=== PATIENT | male | born 1995 | race American Indian/Alaskan Native ===

== ENCOUNTER 2021-10-18 14:14 | Inpatient (IN) | payer SELFPAY ==
--- NOTE | 2021-10-18 17:06 | XRay Report ---
CHEST 1 VIEW INDICATION: Dyspnea. COMPARISON: None FINDINGS: Support devices: None. Heart: Mild cardiomegaly Lungs/Pleura: Bilateral lung opacities are identified which could represent congestive changes or aty pical pneumonia. No pleural effusion or pneumothorax. Additional findings: None. IMPRESSION: Mild cardiomegaly. Bilateral lung opacities or congestive changes. Signer Name: Clarence Santoyo Jr, MD Signed: 10/18/2021 5:01 PM Workstation Name: [id number]
[2021-10-18 17:28] LABS: Basophils % (Auto) 0.2 % (0.0-1.8); Hematocrit 36.8 % (35.5-45.6); Hemoglobin 11.9 gm/dl (11.8-15.2); Lymphocytes # (Auto) 0.6 K/mm3 (1.2-5.4); Lymphocytes % (Auto) 7.7 % (13.4-35.0); Mean Corpuscular HGB Conc 32 % (32-34); Mean Corpuscular Volume 79 fl (84-94); Monocytes # (Auto) 0.4 K/mm3 (0.0-0.8); Monocytes % (Auto) 5.7 % (0.0-7.3); Platelet Count 244 K/mm3 (140-440); Red Blood Count 4.66 M/mm3 (3.65-5.03); Red Cell Distribution Width 15.4 % (13.2-15.2)
[2021-10-18 17:46] LABS: INR 0.95 (0.87-1.13)
[2021-10-18 18:11] LABS: Creatine Kinase MB 3.3 ng/mL (0.0-4.0)
[2021-10-18 18:14] LABS: Alanine Aminotransferase 58 units/L (7-56); Albumin 3.6 g/dL (3.9-5); BUN/Creatinine Ratio 14; Blood Urea Nitrogen 11 mg/dL (9-20); Calcium 8.8 mg/dL (8.4-10.2); Hemolysis Index 3
[2021-10-18] MEDS ORDERED: AZITHROMYCIN/NS 500 MG/250 ML 500 MG/250 ML BAG IV ONE (18:47)
[2021-10-18] MEDS ORDERED: cefTRIAXone/NS 1 GM/50 ML 1 GM/50 ML BAG IV ONE (18:47)
[2021-10-18] MEDS ORDERED: dexAMETHasone 4 MG/ML VIAL IV ONE (18:47)
--- NOTE | 2021-10-18 18:57 | Cat Scan Report ---
CTA CHEST WITH CONTRAST INDICATION : covid/sob. TECHNIQUE: Axial imaging performed through the chest, with contrast bolus timing set to maximize opa cification of the pulmonary arteries. Sagittal and coronal reformatted images. 3-plane MIP reformatte d images were obtained. All CT scans at this location are performed using CT dose reduction for ALAR A by means of automated exposure control. 100 mL of intravenous contrast administered. COMPARISON: AP chest performed earlier today FINDINGS: Bolus: Contrast bolus timing is slightly limited but adequate. PTE: Multiple bilateral nonocclusive filling defects are suggested in the second and third order pul monary arterial branches bilaterally. No large central embolus. Mediastinum: Borderline to mild cardiomegaly. No evidence for right heart strain. The aorta is unre markable. No pathologic mediastinal adenopathy. Lungs: There are moderate to severe bilateral perihilar lung opacities concerning for atypical pneum onia. No pleural effusion or pneumothorax. Bones: Degenerative changes in the spine with nothing acute. Upper abdomen: Moderate to severe hepatic steatosis. IMPRESSION: Positive for pulmonary embolus. Bilateral lung infiltrates concerning for atypical pneumonia such as Covid. Borderline to mild cardiomegaly but no evidence for right heart strain. Hepatic steatosis. CRITICAL RESULT: Time of Discovery (GENERAL PEDIATRICIAN/CDT): 1749 hours Time of Communication (GENERAL PEDIATRICIAN/CDT): 1753 hours Licensed Practitioner Receiving Report: Dr. Phillips Read-Back Performed: Yes. Signer Name: Clarence Santoyo Jr, MD Signed: 10/18/2021 6:53 PM Workstation Name: [id number]
--- NOTE | 2021-10-18 19:06 | Emergency Department Report ---
ED General Adult HPI - General Chief complaint: Dyspnea/Respdistress Stated complaint: COVID/FLU POSITIVE Time Seen by Provider: 10/18/21 15:27 Source: EMS Mode of arrival: Ambulatory Limitations: No Limitations - History of Present Illness Initial comments: The patient presents to the emergency department with a chief complaint of increased shortness of breath. Patient states that he was diagnosed with COVID- 19 and influenza a couple of days ago. He was prescribed azithromycin and steroids after being diagnosed with the after mentioned illnesses. He states his breathing has become increasingly worse especially with exertion. Patient O2 sats on a nonrebreather initially were 90%. Patient reports a history of asthma but states he has not taken any medications for it since he was a kid. He also complains of chest pain especially with exertion. He denies abdominal pain or headache. -: Gradual Location: chest Radiation: non-radiation Severity scale (0 -10): 6 Quality: sharp Consistency: constant Improves with: none Worsens with: movement Associated Symptoms: denies other symptoms Treatments Prior to Arrival: none - Related Data Allergies Allergy/AdvReac Type Severity Reaction Status Date / Time No Known Allergies Allergy Unverified 10/18/21 16:14 ED Review of Systems ROS: Stated complaint: COVID/FLU POSITIVE Other details as noted in HPI Comment: All other systems reviewed and negative Constitutional: denies: chills, fever Eyes: denies: eye pain, eye discharge, vision change ENT: denies: ear pain, throat pain Respiratory: shortness of breath. denies: cough, wheezing Cardiovascular: chest pain. denies: palpitations Endocrine: no symptoms reported Gastrointestinal: denies: abdominal pain, nausea, diarrhea Genitourinary: denies: urgency, dysuria Musculoskeletal: denies: back pain, joint swelling, arthralgia Skin: denies: rash, lesions Neurological: denies: headache, weakness, paresthesias Psychiatric: denies: anxiety, depression Hematological/Lymphatic: denies: easy bleeding, easy bruising ED Past Medical Hx - Past Medical History Previous Medical History?: Yes Hx Hypertension: Yes Hx Diabetes: Yes Additional medical history: Gout - Surgical History Past Surgical History?: No ED Physical Exam - General Limitations: No Limitations General appearance: other (Moderate respiratory distress) - Head Head exam: Present: atraumatic - Eye Eye exam: Present: normal appearance, PERRL, EOMI - ENT ENT exam: Present: mucous membranes moist - Neck Neck exam: Present: normal inspection - Respiratory Respiratory exam: Present: respiratory distress, rales, decreased breath sounds - Cardiovascular Cardiovascular Exam: Present: normal rhythm, tachycardia. Absent: systolic murmur, diastolic murmur, rubs, gallop - GI/Abdominal GI/Abdominal exam: Present: soft, normal bowel sounds. Absent: distended, tenderness - Rectal Rectal exam: Present: deferred - Extremities Exam Extremities exam: Present: other (Bilateral pitting edema) - Back Exam Back exam: Present: normal inspection - Neurological Exam Neurological exam: Present: alert, oriented X3, CN II-XII intact. Absent: motor sensory deficit - Psychiatric Psychiatric exam: Present: normal affect, normal mood - Skin Skin exam: Present: warm, dry, intact, normal color. Absent: rash ED Course Vital Signs 10/18/21 10/18/21 10/18/21 16:15 16:30 16:45 Pulse Rate 101 H 104 H 103 H Respiratory 32 H 32 H 30 H Rate Blood Pressure 124/70 139/49 122/56 [Left] O2 Sat by Pulse 95 94 94 Oximetry ED Medical Decision Making - Lab Data Result diagrams: 10/18/21 16:39 10/18/21 16:39 Lab Results 10/18/21 10/18/21 10/18/21 Range/Units 16:39 16:39 16:39 WBC 7.2 (4.5-11.0) K/mm3 RBC 4.66 (3.65-5.03) M/mm3 Hgb 11.9 (11.8-15.2) gm/dl Hct 36.8 (35.5-45.6) % MCV 79 L (84-94) fl MCH 26 L (28-32) pg MCHC 32 (32-34) % RDW 15.4 H (13.2-15.2) % Plt Count 244 (140-440) K/mm3 Lymph % (Auto) 7.7 L (13.4-35.0) % [place] % (Auto) 5.7 (0.0-7.3) % Eos % (Auto) 0.0 (0.0-4.3) % Baso % (Auto) 0.2 (0.0-1.8) % Lymph # (Auto) 0.6 L (1.2-5.4) K/mm3 [place] # (Auto) 0.4 (0.0-0.8) K/mm3 Eos # (Auto) 0.0 (0.0-0.4) K/mm3 Baso # (Auto) 0.0 (0.0-0.1) K/mm3 Seg Neutrophils % 86.4 H (40.0-70.0) % Seg Neutrophils # 6.2 (1.8-7.7) K/mm3 PT 13.7 (12.2-14.9) Sec. INR 0.95 (0.87-1.13) APTT 33.0 (24.2-36.6) Sec. D-Dimer 231.57 (0-234) ng/mlDDU Sodium 133 L (137-145) mmol/L Potassium 4.9 (3.6-5.0) mmol/L Chloride 96.6 L (98-107) mmol/L Carbon Dioxide 19 L (22-30) mmol/L Anion Gap 22 mmol/L BUN 11 (9-20) mg/dL Creatinine 0.8 (0.8-1.3) mg/dL Estimated GFR > 60 ml/min BUN/Creatinine Ratio 14 % Glucose 183 H (75-100) mg/dL Lactic Acid (0.7-2.0) mmol/L Calcium 8.8 (8.4-10.2) mg/dL Magnesium 1.90 (1.7-2.3) mg/dL Total Bilirubin 0.40 (0.1-1.2) mg/dL AST 72 H (5-40) units/L ALT 58 H (7-56) units/L Alkaline Phosphatase 57 (35-129) units/L Total Creatine Kinase 1484 H (55-170) units/L CK-MB (CK-2) 3.3 (0.0-4.0) ng/mL CK-MB (CK-2) Rel Index 0.2 (0-4) Troponin T < 0.010 (0.00-0.029) ng/mL Total Protein 7.9 (6.3-8.2) g/dL Albumin 3.6 L (3.9-5) g/dL Albumin/Globulin Ratio 0.8 % Lipase 15 (13-60) units/L 12/14/21 Range/Units 16:39 WBC (4.5-11.0) K/mm3 RBC (3.65-5.03) M/mm3 Hgb (11.8-15.2) gm/dl Hct (35.5-45.6) % MCV (84-94) fl MCH (28-32) pg MCHC (32-34) % RDW (13.2-15.2) % Plt Count (140-440) K/mm3 Lymph % (Auto) (13.4-35.0) % [place] % (Auto) (0.0-7.3) % Eos % (Auto) (0.0-4.3) % Baso % (Auto) (0.0-1.8) % Lymph # (Auto) (1.2-5.4) K/mm3 [place] # (Auto) (0.0-0.8) K/mm3 Eos # (Auto) (0.0-0.4) K/mm3 Baso # (Auto) (0.0-0.1) K/mm3 Seg Neutrophils % (40.0-70.0) % Seg Neutrophils # (1.8-7.7) K/mm3 PT (12.2-14.9) Sec. INR (0.87-1.13) APTT (24.2-36.6) Sec. D-Dimer (0-234) ng/mlDDU Sodium (137-145) mmol/L Potassium (3.6-5.0) mmol/L Chloride (98-107) mmol/L Carbon Dioxide (22-30) mmol/L Anion Gap mmol/L BUN (9-20) mg/dL Creatinine (0.8-1.3) mg/dL Estimated GFR ml/min BUN/Creatinine Ratio % Glucose (75-100) mg/dL Lactic Acid 1.40 (0.7-2.0) mmol/L Calcium (8.4-10.2) mg/dL Magnesium (1.7-2.3) mg/dL Total Bilirubin (0.1-1.2) mg/dL AST (5-40) units/L ALT (7-56) units/L Alkaline Phosphatase (35-129) units/L Total Creatine Kinase (55-170) units/L CK-MB (CK-2) (0.0-4.0) ng/mL CK-MB (CK-2) Rel Index (0-4) Troponin T (0.00-0.029) ng/mL Total Protein (6.3-8.2) g/dL Albumin (3.9-5) g/dL Albumin/Globulin Ratio % Lipase (13-60) units/L - Medical Decision Making Patient was placed on nonrebreather mask Sepsis protocol initiated Patient given IV antibiotics CT shows bilateral pulmonary emboli CT also shows bilateral groundglass opacities consistent with COVID-19 Still awaiting completion the EKG at 7:51 PM. Multiple requests me for EKG to be done to no avail Critical Care Time: Yes Critical care time in (mins) excluding proc time.: 35 Critical care attestation.: If time is entered above; I have spent that time in minutes in the direct care of this critically ill patient, excluding procedure time. ED Disposition Clinical Impression: Bilateral pneumonia, COVID-19, Respiratory distress, Bilateral pulmonary embolism Disposition: 09 ADMITTED INPATIENT Is pt being admited?: Yes Does the pt Need Aspirin: No Condition: Fair Instructions: Bacterial Pneumonia (ED) Referrals: PRIMARY CARE, [Primary Care Provider] - 3-5 Days
[2021-10-18 22:52] LABS: Bacteria,Urine 1+ /HPF (Negative); Bilirubin,Urine NEG (Negative); Blood,Urine SM (Negative); Color,Urine Yellow (Yellow); RBC,Urine < 1.0 /HPF (0.0-6.0); Urobilinogen,Urine < 2.0 mg/dL (<2.0); WBC,Urine < 1.0 /HPF (0.0-6.0)
[2021-10-19] MEDS ORDERED: ENOXAPARIN 40 MG/0.4 ML INJ SUB-Q ONE (00:30)
[2021-10-19] MEDS ORDERED: ALPRAZolam 0.25 MG TAB ONE (00:41)
[2021-10-19] MEDS ORDERED: ACETAMINOPHEN 325 MG TAB PO PRN ×2 (04:21→04:31)
[2021-10-19] MEDS ORDERED: MORPHINE 4 MG/1 ML INJ IV PRN (04:21)
[2021-10-19] MEDS ORDERED: ONDANSETRON 4 MG/2 ML INJ IV PRN (04:21)
[2021-10-19] MEDS ORDERED: SODIUM CHLORIDE 0.9% 1000 ML 1,000 ML IV SCH ×3 (04:30→07:30)
[2021-10-19] MEDS ORDERED: ALPRAZolam 0.25 MG TAB PO PRN (04:32)
[2021-10-19] MEDS ORDERED: TEMAZEPAM 15 MG CAP PO PRN (04:33)
[2021-10-19] MEDS ORDERED: PROMETHAZINE 25 MG TAB PO PRN (04:38)
[2021-10-19] MEDS ORDERED: PROMETHAZINE 25 MG RECT SUPP PR PRN (04:39)
[2021-10-19] MEDS ORDERED: DEXTROSE 50% IN WATER (25GM) 50 ML SYRINGE IV PRN (04:51)
--- NOTE | 2021-10-19 07:05 | History and Physical Report ---
History of Present Illness Date of examination: 10/18/21 Date of admission: 10/18/21 19:52 Chief complaint: Shortness of breath for 2 to 3 days History of present illness: 26-year-old male with history of hypertension and diabetes and gout comes in for increasing shortness of breath of 3 days duration. Patient was diagnosed with Covid and flu couple of days ago. Patient was prescribed Zithromax and steroids. Patient's anxiety is shortness of breath is increased over the last 3 days. In the emergency room patient oxygen saturations were 90% on nonrebreather. Patient has history of asthma. But does not take any medications on a regular basis. Not vaccinated with Covid vaccine. No fever or chills. No loss of taste/smell. ED course patient was initiated on rebreather with oxygen saturations improving to low 90s. Patient had bilateral pneumonia on the chest x-ray along with bilateral PEs - Past Medical History --Previous Medical History?: Yes --Hypertension: Yes --Diabetes: Yes --Additional medical history: Gout - Surgical History --No family history --HTN -social history --no smoking or drugs or alcohol Review of Systems ROS: Stated complaint: COVID/FLU POSITIVE Other details as noted in HPI Comment: All other systems reviewed and negative Constitutional: denies: chills, fever Eyes: denies: eye pain, eye discharge, vision change ENT: denies: ear pain, throat pain Respiratory: shortness of breath. denies: cough, wheezing Cardiovascular: chest pain. denies: palpitations Endocrine: no symptoms reported Gastrointestinal: denies: abdominal pain, nausea, diarrhea Genitourinary: denies: urgency, dysuria Musculoskeletal: denies: back pain, joint swelling, arthralgia Skin: denies: rash, lesions Neurological: denies: headache, weakness, paresthesias Psychiatric: denies: anxiety, depression Hematological/Lymphatic: denies: easy bleeding, easy bruising Medications and Allergies Allergies Allergy/AdvReac Type Severity Reaction Status Date / Time No Known Allergies Allergy Unverified 10/18/21 16:14 Active Meds: Active Medications Acetaminophen (Acetaminophen 325 Mg Tab) 650 mg PO Q4H PRN PRN Reason: Pain, Mild (1-3) Alprazolam (Alprazolam 0.25 Mg Tab) 0.125 mg PO Q8H PRN PRN Reason: Anxiety Last Admin: 10/19/21 00:30 Dose: 0.125 mg Documented by: Dexamethasone (Dexamethasone 4 Mg/Ml Vial) 8 mg IV Q24H [facility] Dextrose (Dextrose 50% In Water (25gm) 50 Ml Syringe) 50 ml IV Q30MIN PRN; Protocol PRN Reason: Hypoglycemia Enoxaparin Sodium (Enoxaparin 40 Mg/0.4 Ml Inj) 40 mg SUB-Q Q24H ALBIN Last Admin: 10/19/21 00:30 Dose: 40 mg Documented by: Famotidine (Famotidine 20 Mg Tab) 20 mg PO BID [facility] Sodium Chloride (Nacl 0.9% 1000 Ml) 1,000 mls @ 75 mls/hr IV DIRECT ALBIN Ceftriaxone Sodium (Rocephin/Ns 2 Gm/100 Ml) 2 gm in 100 mls @ 200 mls/hr IV Q24H [facility] Azithromycin (Zithromax/Ns) 500 mg in 250 mls @ 250 mls/hr IV Q24H [facility] Insulin Human Lispro (Insulin Lispro 100 Unit/Ml) 0 unit SUB-Q ACHS ALBIN; Protocol Morphine Sulfate (Morphine 4 Mg/1 Ml Inj) 2 mg IV Q4H PRN PRN Reason: Pain , Severe (7-10) Morphine Sulfate (Morphine 2 Mg/1 Ml Inj) 2 mg IV Q4H PRN PRN Reason: Pain, Moderate (4-6) Ondansetron HCl (Ondansetron 4 Mg/2 Ml Inj) 4 mg IV Q8H PRN PRN Reason: Nausea And Vomiting Promethazine HCl (Promethazine 25 Mg Tab) 25 mg PO Q6H PRN PRN Reason: Nausea And Vomiting Promethazine HCl (Promethazine 25 Mg Rect Supp) 25 mg LA Q6H PRN PRN Reason: Nausea And Vomiting Sodium Chloride (Sodium Chloride 0.9% 10 Ml Flush Syringe) 10 ml IV BID ALBIN Sodium Chloride (Sodium Chloride 0.9% 10 Ml Flush Syringe) 10 ml IV PRN PRN PRN Reason: flush prior to & after IV med Temazepam (Temazepam 15 Mg Cap) 15 mg PO QHS PRN PRN Reason: Sleep Exam - Constitutional Vitals: Temp Pulse Resp BP Pulse Ox 89 20 124/72 93 10/19/21 06:00 10/19/21 06:00 10/19/21 06:00 10/19/21 06:00 General appearance: Present: mild distress, well-nourished - EENT Eyes: Present: PERRL ENT: hearing intact, clear oral mucosa - Neck Neck: Present: supple, normal ROM - Respiratory Respiratory effort: normal Respiratory: bilateral: CTA, rhonchi (Scattered) - Cardiovascular Heart rate: 106 Rhythm: regular Heart Sounds: Present: S1 & S2. Absent: rub, click - Extremities Extremities: no ischemia, pulses intact, pulses symmetrical, No edema Peripheral Pulses: within normal limits - Abdominal General gastrointestinal: Present: soft, non-tender, non-distended, normal bowel sounds Male genitourinary: Present: normal - Rectal Rectal Exam: deferred - Integumentary Integumentary: Present: clear, warm, dry - Musculoskeletal Musculoskeletal: gait normal, strength equal bilaterally - Psychiatric Psychiatric: appropriate mood/affect, intact judgment & insight - Neurologic Neurologic: CNII-XII intact, moves all extremities - Allied Health Allied health notes reviewed: nursing, case management HEART Score - HEART Score EKG: Normal Age: < 45 Risk factors: 1-2 risk factors Troponin: Troponin T < 0.010 ng/mL (0.00-0.029) 10/18/21 16:39 Troponin: < normal limit - Critical Actions Critical Actions: 0-3 pts:0.9-1.7%risk of adverse cardiac event.Candidate for discharge Results - Labs CBC & Chem 7: 10/18/21 16:39 10/18/21 16:39 Labs: Laboratory Last Values WBC 7.2 K/mm3 (4.5-11.0) 10/18/21 16:39 RBC 4.66 M/mm3 (3.65-5.03) 10/18/21 16:39 Hgb 11.9 gm/dl (11.8-15.2) 10/18/21 16:39 Hct 36.8 % (35.5-45.6) 10/18/21 16:39 MCV 79 fl (84-94) L 10/18/21 16:39 MCH 26 pg (28-32) L 10/18/21 16:39 MCHC 32 % (32-34) 10/18/21 16:39 RDW 15.4 % (13.2-15.2) H 10/18/21 16:39 Plt Count 244 K/mm3 (140-440) 10/18/21 16:39 Lymph % (Auto) 7.7 % (13.4-35.0) L 10/18/21 16:39 [place] % (Auto) 5.7 % (0.0-7.3) 10/18/21 16:39 Eos % (Auto) 0.0 % (0.0-4.3) 10/18/21 16:39 Baso % (Auto) 0.2 % (0.0-1.8) 10/18/21 16:39 Lymph # (Auto) 0.6 K/mm3 (1.2-5.4) L 10/18/21 16:39 [place] # (Auto) 0.4 K/mm3 (0.0-0.8) 10/18/21 16:39 Eos # (Auto) 0.0 K/mm3 (0.0-0.4) 10/18/21 16:39 Baso # (Auto) 0.0 K/mm3 (0.0-0.1) 10/18/21 16:39 Seg Neutrophils % 86.4 % (40.0-70.0) H 10/18/21 16:39 Seg Neutrophils # 6.2 K/mm3 (1.8-7.7) 10/18/21 16:39 PT 13.7 Sec. (12.2-14.9) 10/18/21 16:39 INR 0.95 (0.87-1.13) 10/18/21 16:39 APTT 33.0 Sec. (24.2-36.6) 10/18/21 16:39 D-Dimer 231.57 ng/mlDDU (0-234) 10/18/21 16:39 Sodium 133 mmol/L (137-145) L 10/18/21 16:39 Potassium 4.9 mmol/L (3.6-5.0) 10/18/21 16:39 Chloride 96.6 mmol/L (98-107) L 10/18/21 16:39 Carbon Dioxide 19 mmol/L (22-30) L 10/18/21 16:39 Anion Gap 22 mmol/L 10/18/21 16:39 BUN 11 mg/dL (9-20) 10/18/21 16:39 Creatinine 0.8 mg/dL (0.8-1.3) 10/18/21 16:39 Estimated GFR > 60 ml/min 10/18/21 16:39 BUN/Creatinine Ratio 14 % 10/18/21 16:39 Glucose 183 mg/dL (75-100) H 10/18/21 16:39 Lactic Acid 1.40 mmol/L (0.7-2.0) 10/18/21 16:39 Calcium 8.8 mg/dL (8.4-10.2) 10/18/21 16:39 Magnesium 1.90 mg/dL (1.7-2.3) 10/18/21 16:39 Total Bilirubin 0.40 mg/dL (0.1-1.2) 10/18/21 16:39 AST 72 units/L (5-40) H 10/18/21 16:39 ALT 58 units/L (7-56) H 10/18/21 16:39 Alkaline Phosphatase 57 units/L (35-129) 10/18/21 16:39 Total Creatine Kinase 1484 units/L (55-170) H 10/18/21 16:39 CK-MB (CK-2) 3.3 ng/mL (0.0-4.0) 10/18/21 16:39 CK-MB (CK-2) Rel Index 0.2 (0-4) 10/18/21 16:39 Troponin T < 0.010 ng/mL (0.00-0.029) 10/18/21 16:39 Total Protein 7.9 g/dL (6.3-8.2) 10/18/21 16:39 Albumin 3.6 g/dL (3.9-5) L 10/18/21 16:39 Albumin/Globulin Ratio 0.8 % 10/18/21 16:39 Lipase 15 units/L (13-60) 10/18/21 16:39 Urine Color Yellow (Yellow) 10/18/21 22:26 Urine Turbidity Clear (Clear) 10/18/21 22:26 Urine pH 6.0 (5.0-7.0) 10/18/21 22:26 Ur Specific [place] 1.025 (1.003-1.030) 10/18/21 22:26 Urine Protein 100 mg/dl mg/dL (Negative) 10/18/21 22: Urine Glucose (UA) Neg mg/dL (Negative) 10/18/21 22:26 Urine Ketones Neg mg/dL (Negative) 10/18/21 22: Urine Blood Sm (Negative) 10/18/21 22:26 Urine Nitrite Neg (Negative) 10/18/21 22:26 Urine Bilirubin Neg (Negative) 10/18/21 22:26 Urine Urobilinogen < 2.0 mg/dL (<2.0) 10/18/21 22:26 Ur Leukocyte Esterase Neg (Negative) 10/18/21 22:26 Urine WBC (Auto) < 1.0 /HPF (0.0-6.0) 10/18/21 22: Urine RBC (Auto) < 1.0 /HPF (0.0-6.0) 10/18/21 22: U Epithel Cells (Auto) < 1.0 /HPF (0-13.0) 10/18/21 22: Urine Bacteria (Auto) 1+ /HPF (Negative) 10/18/21 22:26 Short CBC 10/18/21 Range/Units 16:39 WBC 7.2 (4.5-11.0) K/mm3 Hgb 11.9 (11.8-15.2) gm/dl Hct 36.8 (35.5-45.6) % Plt Count 244 (140-440) K/mm3 BMP 10/18/21 16:39 Sodium 133 L Potassium 4.9 Chloride 96.6 L Carbon Dioxide 19 L BUN 11 Creatinine 0.8 Glucose 183 H Calcium 8.8 Cardiac Enzymes 10/18/21 Range/Units 16:39 Total Creatine Kinase 1484 H (55-170) units/L CK-MB (CK-2) 3.3 (0.0-4.0) ng/mL Troponin T < 0.010 (0.00-0.029) ng/mL Liver Function 10/18/21 Range/Units 16:39 Total Bilirubin 0.40 (0.1-1.2) mg/dL AST 72 H (5-40) units/L ALT 58 H (7-56) units/L Alkaline Phosphatase 57 (35-129) units/L Albumin 3.6 L (3.9-5) g/dL Urine 10/18/21 Range/Units 22:26 Urine Color Yellow (Yellow) Urine pH 6.0 (5.0-7.0) Ur Specific [place] 1.025 (1.003-1.030) Urine Protein 100 mg/dl (Negative) mg/dL Urine Glucose (UA) Neg (Negative) mg/dL Microbiology: Microbiology 10/18/21 16:39 Peripheral/Venous Blood Culture - Preliminary Culture in Progress 10/18/21 16:47 Peripheral/Venous Blood Culture - Preliminary Culture in Progress - Imaging and Cardiology Imaging and Cardiology: Chest x-ray Mild cardiomegaly Bilateral lung opacities are congestive changes Chest CTA Positive for pulmonary embolus Bilateral lung infiltrates concerning for atypical pneumonia such as Covid Borderline to mild cardiomegaly but no evidence for right heart failure affect Antibiotics. Assessment and Plan Advance Directives: Yes (Full code) VTE prophylaxis?: Chemical Plan of care discussed with patient/family: Yes - Patient Problems (1) Acute respiratory failure with hypoxia Current Visit: Yes Status: Acute Plan to address problem: Oxygen supplementation as necessary BiPAP if necessary Intubation if necessary (2) Bilateral pneumonia Current Visit: Yes Status: Acute Plan to address problem: Treat as community-acquired pneumonia with IV Zithromax and IV Rocephin Rule out Covid pneumonia (3) Bilateral pulmonary embolism Current Visit: Yes Status: Acute Plan to address problem: Lovenox weight-based (4) Influenza Current Visit: Yes Status: Acute Plan to address problem: Rapid flu test requested (5) COVID-19 Current Visit: Yes Status: Acute Plan to address problem: Coronavirus PCR in a.m. 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 insulin use status Plan to address problem: Continue hypoglycemics and coverage Check hemoglobin A1c (9) Transaminitis Current Visit: Yes Status: Acute Plan to address problem: Possibly secondary to Covid Acute hepatitis profile requested (10) Hyponatremia Current Visit: Yes Status: Acute Plan to address problem: Mild Should be self resolving (11) Rhabdomyolysis due to COVID-19 Current Visit: Yes Status: Acute Plan to address problem: Mild Possibly secondary to Covid IV fluids for 24 h (12) Malnutrition Current Visit: Yes Status: Chronic Qualifiers: Protein-calorie malnutrition severity: mild Plan to address problem: Dietary supplements for now (13) DVT prophylaxis Current Visit: Yes Status: Acute Plan to address problem: On anticoagulation and GI prophylaxis (14) Advance care planning Current Visit: Yes Status: Acute
[2021-10-19] MEDS: ENOXAPARIN 60 MG/0.6 ML INJ SUB-Q SCH ×2 (08:00→23:52)
[2021-10-19] MEDS: ENOXAPARIN 100 MG/1 ML INJ SUB-Q SCH ×2 (08:00→23:53)
[2021-10-19] MEDS ORDERED: ENOXAPARIN 40 MG/0.4 ML INJ SUB-Q SCH ×2 (08:00→23:00)
[2021-10-19] MEDS ORDERED: ENOXAPARIN 150 MG/1 ML INJ SUB-Q SCH (10:00)
[2021-10-19] MEDS ORDERED: ENOXAPARIN 30 MG/0.3 ML INJ SUB-Q SCH (10:00)
[2021-10-19] MEDS: dexAMETHasone 4 MG/ML VIAL IV SCH (11:03)
[2021-10-19] MEDS: FAMOTIDINE 20 MG TAB PO SCH ×2 (11:04→23:54)
[2021-10-19] MEDS: MORPHINE 2 MG/1 ML INJ IV PRN (11:16)
--- NOTE | 2021-10-19 11:56 | Consultation ---
History of Present Illness - Reason for Consult Consult date: 10/19/21 COVID PUI Requesting physician: TL JOHNSTON - History of Present Illness The patient is a 26-year-old male with hypertension, diabetes, gout admitted with cough and shortness of breath going on for 3 days. He tested positive for COVID-19 and influenza as an outpatient. Noted to be hypoxic, hence hospitalized. ID consulted for additional evaluation. Initially, he needed nonrebreather, then weaned to nasal cannula. Labs revealed normal WBC, transaminitis, CK 1484. CTA revealed PE, in addition had also showed patchy bilateral multifocal pneumonia. Review of Systems: reviewed in the chart, unable to obtain, minimize risk of transmission Medications and Allergies Allergies Allergy/AdvReac Type Severity Reaction Status Date / Time No Known Allergies Allergy Unverified 10/18/21 16:14 Active Meds: Active Medications Acetaminophen (Acetaminophen 325 Mg Tab) 650 mg PO Q4H PRN PRN Reason: Pain, Mild (1-3) Alprazolam (Alprazolam 0.25 Mg Tab) 0.125 mg PO Q8H PRN PRN Reason: Anxiety Last Admin: 10/19/21 00:30 Dose: 0.125 mg Documented by: Dexamethasone (Dexamethasone 4 Mg/Ml Vial) 8 mg IV DAILY ALBIN Stop: 10/27/21 10:01 Last Admin: 10/19/21 11:03 Dose: 8 mg Documented by: Dextrose (Dextrose 50% In Water (25gm) 50 Ml Syringe) 50 ml IV Q30MIN PRN; Pr otocol PRN Reason: Hypoglycemia Enoxaparin Sodium (Enoxaparin 100 Mg/1 Ml Inj) 100 mg SUB-Q Q12HR ALBIN Enoxaparin Sodium (Enoxaparin 60 Mg/0.6 Ml Inj) 60 mg SUB-Q Q12HR ALBIN Famotidine (Famotidine 20 Mg Tab) 20 mg PO BID ALBIN Last Admin: 10/19/21 11:04 Dose: 20 mg Documented by: Ceftriaxone Sodium (Rocephin/Ns 2 Gm/100 Ml) 2 gm in 100 mls @ 200 mls/hr IV Q24H ALBIN Stop: 10/22/21 20:29 Azithromycin (Zithromax/Ns) 500 mg in 250 mls @ 250 mls/hr IV Q24H ALBIN Stop: 12/18/21 21:59 Sodium Chloride (Nacl 0.9% 1000 Ml) 1,000 mls @ 75 mls/hr IV DIRECT ALBIN Stop: 10/20/21 01:00 Insulin Human Lispro (Insulin Lispro 100 Unit/Ml) 0 unit SUB-Q ACHS ALBIN; Protocol Morphine Sulfate (Morphine 4 Mg/1 Ml Inj) 2 mg IV Q4H PRN PRN Reason: Pain , Severe (7-10) Morphine Sulfate (Morphine 2 Mg/1 Ml Inj) 2 mg IV Q4H PRN PRN Reason: Pain, Moderate (4-6) Last Admin: 10/19/21 11:16 Dose: 2 mg Documented by: Ondansetron HCl (Ondansetron 4 Mg/2 Ml Inj) 4 mg IV Q8H PRN PRN Reason: Nausea And Vomiting Promethazine HCl (Promethazine 25 Mg Tab) 25 mg PO Q6H PRN PRN Reason: Nausea And Vomiting Promethazine HCl (Promethazine 25 Mg Rect Supp) 25 mg NE Q6H PRN PRN Reason: Nausea And Vomiting Sodium Chloride (Sodium Chloride 0.9% 10 Ml Flush Syringe) 10 ml IV BID ALBIN Sodium Chloride (Sodium Chloride 0.9% 10 Ml Flush Syringe) 10 ml IV PRN PRN PRN Reason: flush prior to & after IV med Temazepam (Temazepam 15 Mg Cap) 15 mg PO QHS PRN PRN Reason: Sleep Physical Examination - Physical Exam Narrative exam: Physical Exam (reviewed in chart to minimize risk of transmission) Constitutional: deferred Head, Ears, Nose: deferred Eyes: deferred Neck: deferred Oral: deferred Cardiovascular: deferred Respiratory: deferred GI: deferred Musculoskeletal: deferred Skin: deferred Hem/Lymphatic: deferred Psych: deferred Neurological: deferred - Constitutional Vitals: Vital Signs Temp Pulse Resp BP Pulse Ox 89 23 124/72 93 10/19/21 06:00 10/19/21 11:16 10/19/21 06:00 10/19/21 06:00 Results - Labs CBC & Chem 7: 10/18/21 16:39 10/18/21 16:39 Labs: Abnormal lab results 10/18/21 10/18/21 Range/Units 16:39 16:39 MCV 79 L (84-94) fl MCH 26 L (28-32) pg RDW 15.4 H (13.2-15.2) % Lymph % (Auto) 7.7 L (13.4-35.0) % Lymph # (Auto) 0.6 L (1.2-5.4) K/mm3 Seg Neutrophils % 86.4 H (40.0-70.0) % Sodium 133 L (137-145) mmol/L Chloride 96.6 L (98-107) mmol/L Carbon Dioxide 19 L (22-30) mmol/L Glucose 183 H (75-100) mg/dL AST 72 H (5-40) units/L ALT 58 H (7-56) units/L Total Creatine Kinase 1484 H (55-170) units/L Albumin 3.6 L (3.9-5) g/dL - Imaging and Cardiology CT scan - chest: report reviewed, image reviewed (b/l multifocal pneumonia) Assessment and Plan Cultures: SARS CoV2 PCR: Pending but reportedly positive as an outpatient 10/18/2021 blood culture: In process A/P: 26-year-old male with hypertension, diabetes, gout admitted with cough and shortness of breath going on for 3 days. He tested positive for COVID-19 and influenza as an outpatient: #Bilateral pneumonia: Suspected secondary to COVID-19 and influenza. #Acute hypoxic respiratory failure: Required NRB. #Acute pulmonary embolism: On anticoagulation #Morbid obesity #Transaminitis: Likely related to viral illness #Elevated CPK Recs: -IV/PO Dexamethasone x 10 days, agree with higher dose due to morbid obesity -IV remdesivir x 5 days -if hypoxia worsens to requiring HFNC >30 L/min, CRP >7.5, candidate for Actemra (depending on availability) -prophylactic anticoagulation based on d-dimer per hospital protocol -if procalcitonin is low, abx not needed -Follow-up COVID-19 and influenza PCR. For now, I have added PO Tamiflu x 5 days -trend ferritin, d-dimer, CRP every 2-3 days Maggi Aponte MD, FACP, [facility] ([facility] O: [phone] F: [phone]
--- NOTE | 2021-10-19 12:25 | Electrocardiograph Report ---
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
[2021-10-19] MEDS: INSULIN LISPRO 100 UNIT/ML SUB-Q SCH ×3 (13:42→23:53)
[2021-10-19] MEDS: OSELTAMIVIR 75 MG CAP PO SCH ×2 (14:59→23:54)
[2021-10-19] MEDS: BENZONATATE 100 MG CAP PO SCH ×2 (14:59→23:52)
[2021-10-19] MEDS ORDERED: REMDESIVIR 200 MG in SODIUM CHLORIDE 0.9% 250ML 250 ML IV ONE (17:00)
--- NOTE | 2021-10-19 17:17 | Progress Note ---
Assessment and Plan Assessment and plan: 26-year-old male with history of hypertension and diabetes and gout comes in for increasing shortness of breath of 3 days duration. Patient was diagnosed with Covid and flu couple of days ago. Patient was prescribed Zithromax and steroids. Patient's anxiety is shortness of breath is increased over the last 3 days. In the emergency room patient oxygen saturations were 90% on nonrebreather. Patient has history of asthma. But does not take any medications on a regular basis. Not vaccinated with Covid vaccine. No fever or chills. No loss of taste/smell. Patient had bilateral pneumonia on the chest x-ray along with bilateral PEs. ED course patient was initiated on rebreather with oxygen saturations improving to low 90s. (1) Acute respiratory failure with hypoxia Current Visit: Yes Status: Acute Plan to address problem: Currently in moderate respiratory distress from hypoxia oxygen supplementation as necessary, currently needing nasal cannula and NRB alternately BiPAP if necessary Intubation if necessary, pulmonary consulted On IV Decadron, incentive spirometry Proning/ lateral positioning as needed May be a candidate for Actemra due to significant respiratory distress with multiple risk factors Monitor closely for further respiratory decompensation since he is at high risk (2) Bilateral Covid pneumonia Current Visit: Yes Status: Acute Plan to address problem: CRP 19, LDH 625, D-dimer 231 isolation as per COVID-19 protocol on empiric azithromycin and Rocephin though they have been little role to play, normal WBC, procalcitonin pending On remdesivir, IV Decadron, incentive spirometry and vitamins Monitor markers of inflammation ID consulted/following (3) Bilateral pulmonary embolism on CTA Current Visit: Yes Status: Acute Plan to address problem: D-dimer 231 Likely Covid related Started therapeutic Lovenox weight-based (4) check of concomitant influenza Current Visit: Yes Status: Acute Plan to address problem: Rapid flu test requested (5) COVID-19 Current Visit: Yes Status: Acute Plan to address problem: Coronavirus PCR test positive (6) severe morbid obesity, BMI 47 Current Visit: Yes Status: Acute Plan to address problem: High risk for adverse outcomes (7) Hypertension Current Visit: Yes Status: Chronic Qualifiers: Hypertension type: primary hypertension Qualified Code(s): I10 - Essential (primary) hypertension Plan to address problem: Continue antihypertensives and adjust medications as necessary (8) T2DM (type 2 diabetes mellitus), A1c 7.9 Current Visit: Yes Status: Chronic 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 Plan to address problem: Continue hypoglycemics and coverage (9) Transaminitis Current Visit: Yes Status: Acute Plan to address problem: Likely secondary to Covid Acute hepatitis panel negative (10) Hyponatremia, mild Current Visit: Yes Status: Acute Plan to address problem: Mild, likely related to pneumonia Should be self resolving (11) Rhabdomyolysis due to COVID-19 Current Visit: Yes Status: Acute Plan to address problem: Mild Possibly secondary to Covid IV fluids for 24 h DVT prophylaxis Current Visit: Yes Status: Acute Plan to address problem: On anticoagulation and GI prophylaxis Discussed with the patient in detail at bedside and nursing staff History Interval history: Patient is currently anxious and restless with moderate respiratory distress. He is hypoxic and needing nasal cannula to and NRB alternately. BP and pulse stable. Patient has dry cough. Afebrile. No acute GI symptoms currently. Hospitalist Physical - Constitutional Vitals: Temp Pulse Resp BP Pulse Ox 99.7 F H 101 H 19 128/82 89 10/19/21 15:15 10/19/21 15:15 10/19/21 15:15 10/19/21 15:15 10/19/21 15:15 General appearance: Present: mild distress, well-nourished, obese (Morbid obese with BMI 47), other (Moderate respiratory distress and anxious) - EENT Eyes: Present: PERRL, EOM intact ENT: clear oral mucosa, other (Oropharynx crowded.) - Neck Neck: Present: supple - Respiratory Respiratory effort: labored (Moderate respiratory distress) Respiratory: bilateral: diminished - Cardiovascular Rhythm: regular - Extremities Extremity abnormal: edema - Abdominal General gastrointestinal: soft, non-tender, normal bowel sounds, other (Obese) - Integumentary Integumentary: Absent: rash - Psychiatric Psychiatric: other (Anxious/restless) - Neurologic Neurologic: no focal deficits HEART Score - HEART Score EKG: Normal Age: < 45 Risk factors: 1-2 risk factors Troponin: Troponin T < 0.010 ng/mL (0.00-0.029) 10/18/21 16:39 Troponin: < normal limit - Critical Actions Critical Actions: 0-3 pts:0.9-1.7%risk of adverse cardiac event.Candidate for discharge Results - Labs CBC & Chem 7: 10/19/21 23:52 10/19/21 23:52 Labs: Laboratory Last Values WBC 7.2 K/mm3 (4.5-11.0) 10/18/21 16:39 RBC 4.66 M/mm3 (3.65-5.03) 10/18/21 16:39 Hgb 11.9 gm/dl (11.8-15.2) 10/18/21 16:39 Hct 36.8 % (35.5-45.6) 10/18/21 16:39 MCV 79 fl (84-94) L 10/18/21 16:39 MCH 26 pg (28-32) L 10/18/21 16:39 MCHC 32 % (32-34) 10/18/21 16:39 RDW 15.4 % (13.2-15.2) H 10/18/21 16:39 Plt Count 244 K/mm3 (140-440) 10/18/21 16:39 Lymph % (Auto) 7.7 % (13.4-35.0) L 10/18/21 16:39 [place] % (Auto) 5.7 % (0.0-7.3) 10/18/21 16:39 Eos % (Auto) 0.0 % (0.0-4.3) 10/18/21 16:39 Baso % (Auto) 0.2 % (0.0-1.8) 10/18/21 16:39 Lymph # (Auto) 0.6 K/mm3 (1.2-5.4) L 10/18/21 16:39 [place] # (Auto) 0.4 K/mm3 (0.0-0.8) 10/18/21 16:39 Eos # (Auto) 0.0 K/mm3 (0.0-0.4) 10/18/21 16:39 Baso # (Auto) 0.0 K/mm3 (0.0-0.1) 10/18/21 16:39 Seg Neutrophils % 86.4 % (40.0-70.0) H 10/18/21 16:39 Seg Neutrophils # 6.2 K/mm3 (1.8-7.7) 10/18/21 16:39 PT 13.7 Sec. (12.2-14.9) 10/18/21 16:39 INR 0.95 (0.87-1.13) 10/18/21 16:39 APTT 33.0 Sec. (24.2-36.6) 10/18/21 16:39 D-Dimer 231.57 ng/mlDDU (0-234) 10/18/21 16:39 Sodium 133 mmol/L (137-145) L 10/18/21 16:39 Potassium 4.9 mmol/L (3.6-5.0) 10/18/21 16:39 Chloride 96.6 mmol/L (98-107) L 10/18/21 16:39 Carbon Dioxide 19 mmol/L (22-30) L 10/18/21 16:39 Anion Gap 22 mmol/L 10/18/21 16:39 BUN 11 mg/dL (9-20) 10/18/21 16:39 Creatinine 0.8 mg/dL (0.8-1.3) 10/18/21 16:39 Estimated GFR > 60 ml/min 10/18/21 16:39 BUN/Creatinine Ratio 14 % 10/18/21 16:39 Glucose 183 mg/dL (75-100) H 10/18/21 16:39 POC Glucose 231 mg/dL (70-105) H 10/19/21 13:41 Lactic Acid 1.40 mmol/L (0.7-2.0) 10/18/21 16:39 Calcium 8.8 mg/dL (8.4-10.2) 10/18/21 16:39 Magnesium 1.90 mg/dL (1.7-2.3) 10/18/21 16:39 Total Bilirubin 0.40 mg/dL (0.1-1.2) 10/18/21 16:39 AST 72 units/L (5-40) H 10/18/21 16:39 ALT 58 units/L (7-56) H 10/18/21 16:39 Alkaline Phosphatase 57 units/L (35-129) 10/18/21 16:39 Total Creatine Kinase 1484 units/L (55-170) H 10/18/21 16:39 CK-MB (CK-2) 3.3 ng/mL (0.0-4.0) 10/18/21 16:39 CK-MB (CK-2) Rel Index 0.2 (0-4) 10/18/21 16:39 Troponin T < 0.010 ng/mL (0.00-0.029) 10/18/21 16:39 Total Protein 7.9 g/dL (6.3-8.2) 10/18/21 16:39 Albumin 3.6 g/dL (3.9-5) L 10/18/21 16:39 Albumin/Globulin Ratio 0.8 % 10/18/21 16:39 Lipase 15 units/L (13-60) 10/18/21 16:39 Urine Color Yellow (Yellow) 10/18/21 22:26 Urine Turbidity Clear (Clear) 10/18/21 22:26 Urine pH 6.0 (5.0-7.0) 10/18/21 22:26 Ur Specific [place] 1.025 (1.003-1.030) 10/18/21 22:26 Urine Protein 100 mg/dl mg/dL (Negative) 10/18/21 22:26 Urine Glucose (UA) Neg mg/dL (Negative) 10/18/21 22:26 Urine Ketones Neg mg/dL (Negative) 10/18/21 22:26 Urine Blood Sm (Negative) 10/18/21 22:26 Urine Nitrite Neg (Negative) 10/18/21 22:26 Urine Bilirubin Neg (Negative) 10/18/21 22:26 Urine Urobilinogen < 2.0 mg/dL (<2.0) 10/18/21 22:26 Ur Leukocyte Esterase Neg (Negative) 10/18/21 22:26 Urine WBC (Auto) < 1.0 /HPF (0.0-6.0) 10/18/21 22:26 Urine RBC (Auto) < 1.0 /HPF (0.0-6.0) 10/18/21 22:26 U Epithel Cells (Auto) < 1.0 /HPF (0-13.0) 10/18/21 22:26 Urine Bacteria (Auto) 1+ /HPF (Negative) 10/18/21 22:26 Coronavirus (PCR) Positive (Negative) A 10/19/21 08:24 Microbiology: Microbiology 10/18/21 16:39 Peripheral/Venous Blood Culture - Preliminary Culture in Progress 10/18/21 16:47 Peripheral/Venous Blood Culture - Preliminary Culture in Progress Active Medications - Current Medications Current Medications: Generic Name Dose Route Start Last Admin Trade Name Freq PRN Reason Stop Dose Admin Acetaminophen 650 mg 10/19/21 04:31 10/19/21 17:02 Acetaminophen 325 Mg Tab PO 650 mg Q4H PRN Administration Pain, Mild (1-3) Alprazolam 0.5 mg 10/19/21 13:54 Alprazolam 0.5 Mg Tab PO Q6H PRN Anxiety Benzonatate 200 mg 10/19/21 14:00 10/19/21 14:59 Benzonatate 100 Mg Cap PO 200 mg Q8HR ALBIN Administration Dexamethasone 8 mg 10/19/21 10:00 10/19/21 11:03 Dexamethasone 4 Mg/Ml Vial IV 10/27/21 10:01 8 mg DAILY ALBIN Administration Dextrose 50 ml 10/19/21 04:51 Dextrose 50% In Water (25gm) 50 Ml Syringe IV Q30MIN PRN Hypoglycemia Protocol Enoxaparin Sodium 100 mg 10/19/21 08:00 10/19/21 08:00 Enoxaparin 100 Mg/1 Ml Inj SUB-Q 100 mg Q12HR ALBIN Administration Enoxaparin Sodium 60 mg 10/19/21 08:00 10/19/21 08:00 Enoxaparin 60 Mg/0.6 Ml Inj SUB-Q 60 mg Q12HR ALBIN Administration Famotidine 20 mg 10/19/21 10:00 10/19/21 11:04 Famotidine 20 Mg Tab PO 20 mg BID ALBIN Administration Ceftriaxone Sodium 2 gm in 100 mls @ 200 mls/hr 10/19/21 20:00 Rocephin/Ns 2 Gm/100 Ml IV 10/22/21 20:29 Q24H ALBIN Azithromycin 500 mg in 250 mls @ 250 mls/hr 10/19/21 21:00 Zithromax/Ns IV 10/22/21 21:59 Q24H ALBIN Sodium Chloride 1,000 mls @ 75 mls/hr 10/19/21 07:30 Nacl 0.9% 1000 Ml IV 10/20/21 01:00 DIRECT ALBIN REMDESIVIR 200 mg/ Sodium 250 mls @ 500 mls/hr 10/19/21 17:00 10/19/21 17:02 Chloride IV 10/19/21 17:29 500 mls/hr ONCE ONE Administration REMDESIVIR 100 mg/ Sodium 250 mls @ 500 mls/hr 10/20/21 21:00 Chloride IV 10/23/21 21:29 Q24HR@[facility] Insulin Human Lispro 0 unit 10/19/21 07:30 10/19/21 13:42 Insulin Lispro 100 Unit/Ml SUB-Q 247 unit ACHS ALBIN Administration Protocol Morphine Sulfate 2 mg 10/19/21 04:21 Morphine 4 Mg/1 Ml Inj IV Q4H PRN Pain , Severe (7-10) Morphine Sulfate 2 mg 10/19/21 04:21 10/19/21 11:16 Morphine 2 Mg/1 Ml Inj IV 2 mg Q4H PRN Administration Pain, Moderate (4-6) Ondansetron HCl 4 mg 10/19/21 04:21 Ondansetron 4 Mg/2 Ml Inj IV Q8H PRN Nausea And Vomiting Oseltamivir Phosphate 75 mg 10/19/21 12:00 10/19/21 14:59 Oseltamivir 75 Mg Cap PO 10/23/21 22:01 75 mg BID ALBIN Administration Promethazine HCl 25 mg 10/19/21 04:38 Promethazine 25 Mg Tab PO Q6H PRN Nausea And Vomiting Promethazine HCl 25 mg 10/19/21 04:39 Promethazine 25 Mg Rect Supp [place] Q6H PRN Nausea And Vomiting Sodium Chloride 10 ml 10/19/21 10:00 10/19/21 10:00 Sodium Chloride 0.9% 10 Ml Flush Syringe IV 10 ml BID ALBIN Administration Sodium Chloride 10 ml 10/19/21 04:26 Sodium Chloride 0.9% 10 Ml Flush Syringe IV PRN PRN flush prior to & after IV med Sodium Chloride 50 ml 10/19/21 17:00 Sodium Chloride 0.9% 50 Ml Ivpb IV 10/23/21 21:01 Q24HR@2100 [facility] Temazepam 15 mg 10/19/21 04:33 Temazepam 15 Mg Cap PO QHS PRN Sleep Nutrition/Malnutrition Assess - Dietary Evaluation Nutrition/Malnutrition Findings: Nutrition Notes Start: 10/19/21 14:34 Freq: Status: Active Protocol: Document 10/19/21 14:34 MAYANK (Rec: 10/19/21 15:19 MAYANK [id number]) Nutrition Notes Need for Assessment generated from: MD Order Initial or Follow up Assessment Current Diagnosis Diabetes,Hypertension, Respiratory Failure, Malnutrition Other Pertinent Diagnosis Possible COVID-19, Pulm Embolism, Pneumonia, Transaminitis, Rabdomyolysis. Current Diet Cardiac Diet (since B 10/19), D Supplements (since L 10/19). Labs/Tests 10/18: Na 133, Cl 96.6, CO2 19 , Glu 183, AST 72, ALT 58, TcKinase 1484, Alb 3.6. Pertinent Medications 10/19: Insulin, others nutritionally unremarkable. Height 6 ft Weight 158.757 kg [place] Body Weight (kg) 80.90 BMI 47.5 Weight Status Morbidly Obese Subjective/Other Information RD consult for dietary supplementation assessment. Pt shows no signs of concern for skin risk or risk of malnutrition at the time, according to Physical Assessment History notes. No report available on %PO intake of meals at the time. Percent of energy/protein needs met: Prescribed Cardiac Diet provides for energy/protein needs (2,230 Kcal/85 g) during LOS; additionally, Dietary Supplements will compensate for possible Poor PO intake of meals with 220 Kcal and 10 g of protein. Burn Absent Trauma Absent GI Symptoms None Food Allergy No Skin Integrity/Comment Clear, warm, dry. Minimum of two criteria No #1 Nutrition Diagnosis Inadequate energy intake Comments: Pt shows no signs of concern for skin risk or risk of malnutrition at the time, according to Physical Assessment History notes. No report available on %PO intake of meals at the time. Etiology Possible mild malnutrition As Evidenced by Signs and Symptoms MD request for Dietary Supplementation. Is patient on ventilator? No Is Patient Ambulatory and/or Out of Bed Yes [facility]) [ [id number] [id number]] Calculation Used for [facility]ations [facility] Additional Notes Protein: 1-1.2 g/Kg; 120-144 g /day (from AdBW + critical care). Fluids: 1 ml/Kcal, or as per MD. Nutrition Intervention Change Diet Order: Continue Cardiac Diet. Add Supplement/Snack (indicate name/kcal 8 fl oz Glucerna; Daily. /protein ) Provides kCal: 220 Provides Protein (gm) 10 Goal #1 Maintain body weight within +/ -3% of admission BWt during LOS. Goal #2 Reach and maintain acceptable chemistry lab values during LOS. Follow-Up By: 10/26/21 Additional Comments Continue monitoring food tolerance, %PO intake of meals , Hydration, and BM.
[2021-10-19] MEDS: AZITHROMYCIN/NS 500 MG/250 ML 500 MG/250 ML BAG IV SCH (23:51)
[2021-10-19] MEDS: cefTRIAXone/NS 2 GM/100 ML 2 GM/100 ML BAG IV SCH (23:51)
[2021-10-20 00:07] LABS: Basophils % (Auto) 0.1 % (0.0-1.8); Hematocrit 38.2 % (35.5-45.6); Hemoglobin 12.1 gm/dl (11.8-15.2); Lymphocytes # (Auto) 0.5 K/mm3 (1.2-5.4); Lymphocytes % (Auto) 4.9 % (13.4-35.0); Mean Corpuscular HGB Conc 32 % (32-34); Mean Corpuscular Volume 79 fl (84-94); Monocytes # (Auto) 0.5 K/mm3 (0.0-0.8); Monocytes % (Auto) 5.3 % (0.0-7.3); Platelet Count 326 K/mm3 (140-440); Red Blood Count 4.81 M/mm3 (3.65-5.03); Red Cell Distribution Width 15.9 % (13.2-15.2)
[2021-10-20] MEDS: SODIUM CHLORIDE 0.9% 50 ML IVPB IV SCH ×2 (00:09→21:44)
[2021-10-20] MEDS: INSULIN LISPRO 100 UNIT/ML SUB-Q SCH ×4 (00:10→19:00)
[2021-10-20 00:38] LABS: Hepatitis C Virus Antibody Non-Reactive (NonReactive)
[2021-10-20 00:42] LABS: Hepatitis B Surface Antigen Nonreactive (Negative)
[2021-10-20 00:55] LABS: Alanine Aminotransferase 76 units/L (7-56); Albumin 3.6 g/dL (3.9-5); BUN/Creatinine Ratio 22; Blood Urea Nitrogen 20 mg/dL (9-20); Hemolysis Index 4
[2021-10-20] MEDS: ALPRAZolam 0.5 MG TAB PO PRN ×2 (00:56→05:06)
[2021-10-20] MEDS: MORPHINE 2 MG/1 ML INJ IV PRN (02:10)
[2021-10-20] MEDS ORDERED: guaiFENesin DM 200/20 MG ORAL LIQD 10 ML PO PRN (03:00)
[2021-10-20] MEDS: BENZONATATE 100 MG CAP PO SCH ×3 (05:06→22:01)
[2021-10-20] MEDS: LORazepam 2 MG/ML VIAL IV ONE ×2 (05:55→06:10)
[2021-10-20] MEDS ORDERED: LORazepam 2 MG/ML VIAL IM ONE (06:10)
[2021-10-20] MEDS: ENOXAPARIN 100 MG/1 ML INJ SUB-Q SCH (09:16)
[2021-10-20] MEDS: ENOXAPARIN 60 MG/0.6 ML INJ SUB-Q SCH (09:17)
[2021-10-20] MEDS: FAMOTIDINE 20 MG TAB PO SCH (09:18)
[2021-10-20] MEDS: dexAMETHasone 4 MG/ML VIAL IV SCH ×2 (09:23→21:59)
[2021-10-20] MEDS ORDERED: HEPARIN 10,000 UNITS/10 ML VIAL IV PRN (10:41)
[2021-10-20] MEDS ORDERED: LORazepam 2 MG/ML VIAL IV ONE (11:00)
--- NOTE | 2021-10-20 11:28 | Consultation ---
History of Present Illness Consult date: 10/20/21 Requesting physician: WALLY MEHTA Reason for consult: hypoxemia, other (COVID) History of present illness: 26 y/o male admitted 2 days ago with acute respiratory failure, found to be COVID positive. This am, code met called and transferred to unit as a step down patient. at bedside. Patient is morbidly obese and tachypnic but satting in the mid 90's on NRB and HFNC. Initially refused transfer and further care but has since changed his mind. Past History Past Medical History: diabetes Past Surgical History: Other (unknown) Social history: Medications and Allergies Allergies Allergy/AdvReac Type Severity Reaction Status Date / Time No Known Allergies Allergy Unverified 10/18/21 16:14 Home Medications Medication Instructions Recorded Confirmed Last Taken Type metFORMIN [Glucophage] 500 mg PO BID 10/20/21 10/20/21 Unknown History Active Meds: Active Medications Acetaminophen (Acetaminophen 325 Mg Tab) 650 mg PO Q4H PRN PRN Reason: Pain, Mild (1-3) Last Admin: 10/19/21 17:02 Dose: 650 mg Documented by: Alprazolam (Alprazolam 0.5 Mg Tab) 0.5 mg PO Q6H PRN PRN Reason: Anxiety Last Admin: 10/20/21 05:06 Dose: 0.5 mg Documented by: Benzonatate (Benzonatate 100 Mg Cap) 200 mg PO Q8HR [facility] Last Admin: 10/20/21 05:06 Dose: 200 mg Documented by: Dexamethasone (Dexamethasone 4 Mg/Ml Vial) 8 mg IV BID [facility] Stop: 10/23/21 22:01 Dextrose (Dextrose 50% In Water (25gm) 50 Ml Syringe) 50 ml IV Q30MIN PRN; Protocol PRN Reason: Hypoglycemia Famotidine (Famotidine 20 Mg Tab) 20 mg PO BID [facility] Last Admin: 10/20/21 09:18 Dose: Not Given Documented by: Guaifenesin (Guaifenesin Dm 200/20 Mg Oral Liqd 10 Ml) 10 ml PO Q4H PRN PRN Reason: Cough Last Admin: 10/20/21 03:24 Dose: 10 ml Documented by: Heparin Sodium (Porcine) (Heparin 10,000 Units/10 Ml Vial) 5,000 unit IV Q6H PRN PRN Reason: Anti-Xa Assay < 0.1 units/ml Ceftriaxone Sodium (Rocephin/Ns 2 Gm/100 Ml) 2 gm in 100 mls @ 200 mls/hr IV Q24H [facility] Stop: 10/22/21 20:29 Last Admin: 10/19/21 23:51 Dose: 200 mls/hr Documented by: Azithromycin (Zithromax/Ns) 500 mg in 250 mls @ 250 mls/hr IV Q24H [facility] Stop: 10/22/21 21:59 Last Admin: 10/19/21 23:51 Dose: 250 mls/hr Documented by: REMDESIVIR 100 mg/ Sodium (Chloride) 250 mls @ 500 mls/hr IV Q24HR@2100 [facility] Stop: 10/23/21 21:29 TOCILIZUMAB 800 mg/ Sodium (Chloride) 140 mls @ 120 mls/hr IV ONCE@1130 [facility] Stop: 10/20/21 15:30 Dexmedetomidine HCl 400 mcg/ (Sodium Chloride) 104 mls @ 8.255 mls/hr IV TITRATE [facility]; Protocol Heparin Sodium/Sodium Chloride (Heparin/ 0.45% Nacl-25,000 Unit/500 Ml) 25,000 unit in 500 mls @ 30 mls/hr IV TITR [facility]; Protocol Insulin Human Lispro (Insulin Lispro 100 Unit/Ml) 0 unit SUB-Q Q6HR [facility]; Protocol Morphine Sulfate (Morphine 4 Mg/1 Ml Inj) 2 mg IV Q4H PRN PRN Reason: Pain , Severe (7-10) Morphine Sulfate (Morphine 2 Mg/1 Ml Inj) 2 mg IV Q4H PRN PRN Reason: Pain, Moderate (4-6) Last Admin: 10/20/21 02:10 Dose: 2 mg Documented by: Ondansetron HCl (Ondansetron 4 Mg/2 Ml Inj) 4 mg IV Q8H PRN PRN Reason: Nausea And Vomiting Oseltamivir Phosphate (Oseltamivir 75 Mg Cap) 75 mg PO BID [facility] Stop: 10/23/21 22:01 Last Admin: 10/19/21 23:54 Dose: 75 mg Documented by: Promethazine HCl (Promethazine 25 Mg Tab) 25 mg PO Q6H PRN PRN Reason: Nausea And Vomiting Last Admin: 10/20/21 05:06 Dose: 25 mg Documented by: Sodium Chloride (Sodium Chloride 0.9% 10 Ml Flush Syringe) 10 ml IV BID [facility] Last Admin: 10/20/21 09:18 Dose: 10 ml Documented by: Sodium Chloride (Sodium Chloride 0.9% 10 Ml Flush Syringe) 10 ml IV PRN PRN PRN Reason: flush prior to & after IV med Sodium Chloride (Sodium Chloride 0.9% 50 Ml Ivpb) 50 ml IV Q24HR@2100 [facility] Stop: 10/23/21 21:01 Last Admin: 10/20/21 00:09 Dose: Not Given Documented by: Temazepam (Temazepam 15 Mg Cap) 15 mg PO QHS PRN PRN Reason: Sleep Last Admin: 10/20/21 00:15 Dose: 15 mg Documented by: Physical Examination Vital signs: Vital Signs Pulse Resp BP Pulse Ox 101 H 32 H 124/70 95 10/18/21 16:15 10/18/21 16:15 10/18/21 16:15 10/18/21 16:15 General appearance: appears uncomfortable, other (morbidly obese) Eyes: non-icteric ENT: oropharynx moist Neck: supple, other (large in circumference) Effort: very labored Ascultation: Bilateral: diminished breath sounds Percussion: Bilateral: not dull Tactile fremitus: Bilateral: normal Cardiovascular: regular rate and rhythm Gastrointestinal: normoactive bowel sounds, soft Extremities: no edema normal mental status anxious Results - Laboratory Findings CBC and BMP: 10/21/21 02:16 10/21/21 12:00 PT/INR, D-dimer PT 13.7 Sec. (12.2-14.9) 10/18/21 16:39 INR 0.95 (0.87-1.13) 10/18/21 16:39 D-Dimer 231.57 ng/mlDDU (0-234) 10/18/21 16:39 Abnormal lab findings: Abnormal Labs 10/18/21 10/18/21 10/19/21 16:39 16:39 08:24 MCV 79 L MCH 26 L RDW 15.4 H Lymph % (Auto) 7.7 L Lymph # (Auto) 0.6 L Seg Neutrophils % 86.4 H Seg Neutrophils # Sodium 133 L Chloride 96.6 L Carbon Dioxide 19 L Glucose 183 H POC Glucose Hemoglobin A1c Ferritin AST 72 H ALT 58 H Lactate Dehydrogenase Total Creatine Kinase 1484 H C-Reactive Protein Total Protein Albumin 3.6 L Coronavirus (PCR) Positive A 10/19/21 10/19/21 10/19/21 13:41 17:41 21:02 MCV MCH RDW Lymph % (Auto) Lymph # (Auto) Seg Neutrophils % Seg Neutrophils # Sodium Chloride Carbon Dioxide Glucose POC Glucose 231 H 228 H 271 H Hemoglobin A1c Ferritin AST ALT Lactate Dehydrogenase Total Creatine Kinase C-Reactive Protein Total Protein Albumin Coronavirus (PCR) 10/19/21 10/19/21 10/19/21 23:52 23:52 23:52 MCV 79 L MCH 25 L RDW 15.9 H Lymph % (Auto) 4.9 L Lymph # (Auto) 0.5 L Seg Neutrophils % 89.7 H Seg Neutrophils # 8.9 H Sodium 133 L Chloride 95.0 L Carbon Dioxide 18 L Glucose 217 H POC Glucose Hemoglobin A1c 7.9 H Ferritin AST 94 H ALT 76 H Lactate Dehydrogenase Total Creatine Kinase C-Reactive Protein Total Protein 8.4 H Albumin 3.6 L Coronavirus (PCR) 10/19/21 10/19/21 10/19/21 23:52 23:52 23:52 MCV MCH RDW Lymph % (Auto) Lymph # (Auto) Seg Neutrophils % Seg Neutrophils # Sodium Chloride Carbon Dioxide Glucose POC Glucose Hemoglobin A1c Ferritin 786.1 H AST ALT Lactate Dehydrogenase 625 H Total Creatine Kinase C-Reactive Protein 18.80 H Total Protein Albumin Coronavirus (PCR) 10/19/21 23:52 MCV MCH RDW Lymph % (Auto) Lymph # (Auto) Seg Neutrophils % Seg Neutrophils # Sodium Chloride Carbon Dioxide Glucose POC Glucose Hemoglobin A1c Ferritin AST ALT Lactate Dehydrogenase Total Creatine Kinase C-Reactive Protein 19.20 H Total Protein Albumin Coronavirus (PCR) Assessment and Plan 26 y/o morbidly obese male admitted with acute respiratory failure secondary to COVID pneumonia 1. Continue HFNC with NRB. Will use precedex in an attempt to help with anxiety 2. Long discussion with patient and at bedside in regards to risk of int ubation and prognosis associated with this. Both expressed understanding 3. IV steroids, will increase to BID 4. Remdesivir 5. Actemra 6. Guarded to poor prognosis.
[2021-10-20] MEDS ORDERED: TOCILIZUMAB 800 MG in SODIUM CHLORIDE 0.9% 100 ML IV SCH (11:30)
--- NOTE | 2021-10-20 11:54 | Progress Note ---
Assessment and Plan Cultures: SARS CoV2 PCR: positive 10/18/2021 blood culture: no growth A/P: 26-year-old male with hypertension, diabetes, gout admitted with cough and shortness of breath going on for 3 days. He tested positive for COVID-19 and influenza as an outpatient: #Bilateral pneumonia: Suspected secondary to COVID-19 and influenza. #Acute hypoxic respiratory failure: Requiring NRB / HFNC #Acute pulmonary embolism: On anticoagulation #Morbid obesity #Transaminitis: Likely related to viral illness #Elevated CPK Recs: -IV/PO Dexamethasone x 10 days, agree with higher dose due to morbid obesity -continue IV remdesivir x 5 days -s/p Actemra 10/20/2021 -on anticoagulation for PE -if procalcitonin is low, abx can be discontinued -Follow-up influenza PCR, meanwhile continue PO Tamiflu x 5 days -trend ferritin, d-dimer, CRP every 2-3 days -guarded prognosis Maggi Aponte MD, FACP, [facility] O: [phone] F: [phone] Subjective Date of service: 10/20/21 Interval history: No fever. Hypoxia worsened to NRB/HFNC, now in ICU. COVID-19 positive. Received Actemra per d/w pharmacy. Objective - Exam Narrative Exam: Physical Exam (reviewed in chart to minimize risk of transmission) Constitutional: deferred Head, Ears, Nose: deferred Eyes: deferred Neck: deferred Oral: deferred Cardiovascular: deferred Respiratory: deferred GI: deferred Musculoskeletal: deferred Skin: deferred Hem/Lymphatic: deferred Psych: deferred Neurological: deferred - Constitutional Vitals: Vital Signs Temp Pulse Resp BP Pulse Ox 99.1 F 106 H 24 148/96 90 10/20/21 11:45 10/20/21 04:35 10/20/21 04:35 10/20/21 04:35 10/20/21 10:38 Temperature -Last 24 Hours Temperature 99.1 F Temperature 98.8 F Temperature 98.9 F Temperature 98.6 F Temperature 99.1 F Temperature 99.7 F - Labs CBC & Chem 7: 10/19/21 23:52 10/19/21 23:52 Labs: Abnormal lab results 10/19/21 10/19/21 10/19/21 Range/Units 08:24 13:41 17:41 MCV (84-94) fl MCH (28-32) pg RDW (13.2-15.2) % Lymph % (Auto) (13.4-35.0) % Lymph # (Auto) (1.2-5.4) K/mm3 Seg Neutrophils % (40.0-70.0) % Seg Neutrophils # (1.8-7.7) K/mm3 Sodium (137-145) mmol/L Chloride (98-107) mmol/L Carbon Dioxide (22-30) mmol/L Glucose (75-100) mg/dL POC Glucose 231 H 228 H (70-105) mg/dL Hemoglobin A1c (4-6) % Ferritin (30.0-300.0) ng/mL AST (5-40) units/L ALT (7-56) units/L Lactate Dehydrogenase (91-180) units/L C-Reactive Protein (0.00-1.30) mg/dL Total Protein (6.3-8.2) g/dL Albumin (3.9-5) g/dL Coronavirus (PCR) Positive A (Negative) 10/19/21 10/19/21 10/19/21 Range/Units 21:02 23:52 23:52 MCV 79 L (84-94) fl MCH 25 L (28-32) pg RDW 15.9 H (13.2-15.2) % Lymph % (Auto) 4.9 L (13.4-35.0) % Lymph # (Auto) 0.5 L (1.2-5.4) K/mm3 Seg Neutrophils % 89.7 H (40.0-70.0) % Seg Neutrophils # 8.9 H (1.8-7.7) K/mm3 Sodium 133 L (137-145) mmol/L Chloride 95.0 L (98-107) mmol/L Carbon Dioxide 18 L (22-30) mmol/L Glucose 217 H (75-100) mg/dL POC Glucose 271 H (70-105) mg/dL Hemoglobin A1c (4-6) % Ferritin (30.0-300.0) ng/mL AST 94 H (5-40) units/L ALT 76 H (7-56) units/L Lactate Dehydrogenase (91-180) units/L C-Reactive Protein (0.00-1.30) mg/dL Total Protein 8.4 H (6.3-8.2) g/dL Albumin 3.6 L (3.9-5) g/dL Coronavirus (PCR) (Negative) 10/19/21 10/19/21 10/19/21 Range/Units 23:52 23:52 23:52 MCV (84-94) fl MCH (28-32) pg RDW (13.2-15.2) % Lymph % (Auto) (13.4-35.0) % Lymph # (Auto) (1.2-5.4) K/mm3 Seg Neutrophils % (40.0-70.0) % Seg Neutrophils # (1.8-7.7) K/mm3 Sodium (137-145) mmol/L Chloride (98-107) mmol/L Carbon Dioxide (22-30) mmol/L Glucose (75-100) mg/dL POC Glucose (70-105) mg/dL Hemoglobin A1c 7.9 H (4-6) % Ferritin 786.1 H (30.0-300.0) ng/mL AST (5-40) units/L ALT (7-56) units/L Lactate Dehydrogenase (91-180) units/L C-Reactive Protein 18.80 H (0.00-1.30) mg/dL Total Protein (6.3-8.2) g/dL Albumin (3.9-5) g/dL Coronavirus (PCR) (Negative) 10/19/21 10/19/21 10/20/21 Range/Units 23:52 23:52 11:25 MCV (84-94) fl MCH (28-32) pg RDW (13.2-15.2) % Lymph % (Auto) (13.4-35.0) % Lymph # (Auto) (1.2-5.4) K/mm3 Seg Neutrophils % (40.0-70.0) % Seg Neutrophils # (1.8-7.7) K/mm3 Sodium (137-145) mmol/L Chloride (98-107) mmol/L Carbon Dioxide (22-30) mmol/L Glucose (75-100) mg/dL POC Glucose 174 H (70-105) mg/dL Hemoglobin A1c (4-6) % Ferritin (30.0-300.0) ng/mL AST (5-40) units/L ALT (7-56) units/L Lactate Dehydrogenase 625 H (91-180) units/L C-Reactive Protein 19.20 H (0.00-1.30) mg/dL Total Protein (6.3-8.2) g/dL Albumin (3.9-5) g/dL Coronavirus (PCR) (Negative)
[2021-10-20] MEDS: HALOPERIDOL LACTATE 5 MG/1 ML INJ IV SCH ×2 (13:05→13:35)
[2021-10-20] MEDS ORDERED: ROCURONIUM 50 MG/5 ML INJ IV ONE ×3 (13:24→14:00)
[2021-10-20] MEDS ORDERED: ETOMIDATE 20 MG/10 ML INJ IV ONE ×2 (13:25→14:00)
[2021-10-20] MEDS ORDERED: fentaNYL 100 MCG/2 ML INJ IV PRN (13:25)
[2021-10-20] MEDS ORDERED: LIP THERAPY VASELINE TP PRN (13:25)
[2021-10-20] MEDS ORDERED: ALUM-MAG HYDROXIDE-SIMETHICONE 200-200-20MG/5ML ORAL LIQD 30 ML PO PRN (13:30)
[2021-10-20] MEDS ORDERED: DEXTROSE 50% IN WATER (25GM) 50 ML SYRINGE IV PRN (13:30)
[2021-10-20] MEDS ORDERED: FUROSEMIDE 40 MG/4 ML INJ IV ONE (13:30)
[2021-10-20] MEDS ORDERED: SUCCINYLCHOLINE CHLORIDE 200 MG/10 ML INJ MDV ONE (13:40)
[2021-10-20 13:41] LABS: Hematocrit 37.9 % (35.5-45.6); Hemoglobin 11.8 gm/dl (11.8-15.2)
[2021-10-20] MEDS ORDERED: propofoL 200 MG/20 ML VIAL IV ONE (13:41)
--- NOTE | 2021-10-20 13:43 | XRay Report ---
XR chest 1V ap INDICATION / CLINICAL INFORMATION: Resp Distress COMPARISON: 10/18/2021 FINDINGS: SUPPORT DEVICES: None. HEART / MEDIASTINUM: Enlarged cardiac silhouette. LUNGS / PLEURA: Lungs are not well evaluated due to body habitus. Persistent bilateral airspace disea se. Costophrenic sulci are sharp. No pneumothorax. ADDITIONAL FINDINGS: No significant additional findings. IMPRESSION: 1. Persistent bilateral diffuse airspace disease, possibly worse but not well evaluated. Signer Name: Alvaro Wadsworth MD Signed: 10/20/2021 1:38 PM Workstation Name: [id number]
[2021-10-20 13:51] LABS: INR 1.05 (0.87-1.13)
[2021-10-20 13:52] LABS: Partial Thromboplastin Time 36.1 Sec. (24.2-36.6)
[2021-10-20] MEDS ORDERED: ATROPINE 0.1% (1 MG/10 ML) CARDIAC SYRINGE ONE (13:52)
--- NOTE | 2021-10-20 13:55 | Event Note ---
Date: 10/20/21 Called to bedside by RN at 1245 re tachypenia and desaturation. Patient on precedex gtt. CXR ordered and repeat labs. RT asked to attempt BiPAP. Bipap was placed by RT but patient pulled it off. Precedex gtt maxxed by RN. In 5 min, Rt placed Bipap again but again he ripped it off. Dr Patricia was called. CXR seemed to have edema and lasix was ordered. Haldol IVP x1 given to help with sedation. Anesthesia was called to bedside and he was evaluated by Dr. Green. Bipap was again tried by Rt but patient was not able to tolerate. Dr. Patricia informed and requested for intubation. Anesthesia was again called to bedside for intubation. Dr. Beavers informed of events. Patient was intubated by anesthesia. Post intubation patient was bradycardiac to 40s and fighting the ventilator. He was given 0.5 mg atropine by anesthesia. HR briefly went up to 200 but quickly came back down to 140. Candicenl and versed gtt for deep sedation. SpO2 remined in the 80s post intubation and now 91 at 1413. CXR just completed. Restraints in place. CCT 45 min
[2021-10-20] MEDS ORDERED: SUCCINYLCHOLINE CHLORIDE 200 MG/10 ML INJ MDV IV ONE (14:00)
[2021-10-20] MEDS ORDERED: ATROPINE 0.1% (1 MG/10 ML) CARDIAC SYRINGE IV ONE (14:00)
[2021-10-20 14:02] LABS: Alanine Aminotransferase 94 units/L (7-56); Albumin 3.5 g/dL (3.9-5); BUN/Creatinine Ratio 25; Blood Urea Nitrogen 20 mg/dL (9-20); Calcium 8.3 mg/dL (8.4-10.2); Hemolysis Index 4
--- NOTE | 2021-10-20 14:09 | Event Note ---
Date: 10/20/21 (Intubation) Requested to intubate patient by Dr Patricia via [facility]. Meds: Etomidate 20mg + Abelino 120mg Glidescope X 1 att with grade 1 view. OETT +BBS/CO2
[2021-10-20] MEDS: FAMOTIDINE 20 MG/2 ML INJ IV SCH ×2 (14:20→22:00)
[2021-10-20] MEDS: MIDAZOLAM 2 MG/2 ML INJ IV PRN (14:25)
[2021-10-20] MEDS ORDERED: SODIUM CHLORIDE 0.9% 500 ML 1,000 ML IV PRN (14:30)
[2021-10-20] MEDS: fentaNYL DRIP Premix 2,000 MCG/100 ML BAG IV SCH ×3 (14:30→21:50)
[2021-10-20] MEDS: MIDAZOLAM 100 MG in SODIUM CHLORIDE 0.9% 80 ML IV SCH (14:30)
--- NOTE | 2021-10-20 14:39 | XRay Report ---
CHEST 1 VIEW 2:20 PM INDICATION: ETT placement. COMPARISON: Earlier today. FINDINGS: Support devices: Endotracheal tube has been placed in satisfactory position with tip at the level of the inferior clavicles a few centimeters above the mert. Heart: Stable. Lungs/Pleura: There is no pneumothorax. Diffuse bilateral pulmonary opacities persist. IMPRESSION: 1. No complications after endotracheal tube placement. Signer Name: Ru Kaur MD Signed: 10/20/2021 2:35 PM Workstation Name: [id number]
[2021-10-20] MEDS ORDERED: SODIUM CHLORIDE 0.9% 1000 ML 1,000 ML ONE (15:15)
[2021-10-20] MEDS ORDERED: LIPASE 10,500/PROTEASE 25,000/AMYLASE 43,750 (UNITS) DR CAP FEEDTUBE PRN (15:15)
[2021-10-20] MEDS ORDERED: SODIUM BICARBONATE 325 MG TAB FEEDTUBE PRN (15:15)
[2021-10-20] MEDS ORDERED: SIMPLE SYRUP 15 ML FEEDTUBE PRN ×2 (15:15)
--- NOTE | 2021-10-20 16:16 | XRay Report ---
CHEST 1 VIEW 10/20/2021 3:57 PM INDICATION / CLINICAL INFORMATION: cvl placement. COMPARISON: Earlier the same day. FINDINGS: SUPPORT DEVICES: New right IJ central venous catheter has its tip over the distal superior vena cava. Remaining lines and tubes unchanged. HEART / MEDIASTINUM: Stable cardiomegaly. LUNGS / PLEURA: Diffuse bilateral opacity with basilar effusion remains. Mild interval worsening. No pneumothorax. ADDITIONAL FINDINGS: No significant additional findings. IMPRESSION: 1. Satisfactory central line placement. 2. Mild worsening in the appearance of the chest. Signer Name: Leland Paniagua MD Signed: 10/20/2021 4:12 PM Workstation Name: [id number]
--- NOTE | 2021-10-20 16:19 | Procedure Note ---
Date of procedure: 10/20/21 Pre-op diagnosis: COVID-19 pneumonia, acute hypoxic respiratory failure, pulmonary embolism Post-op diagnosis: same Procedure: CENTRAL LINE/DIALYSIS TEMPLATE Statement of consent: Consent obtained from at bedside Triple-lumen catheter was placed in right internal jugular vein. Sterile technique was utilized. Area prepped with chlorhexidine/ full body drape utilized. Ultrasound guidance was used to find and access the vessel. Line was placed without difficulty. Line was sutured, biopatch placed and tegaderm dressing applied. Chest x-ray to confirm placement. Pt tolerated procedure well. VS remained stable throughout procedure. (time spent placing line not included in daily critical care time) CCT: 60 minutes Anesthesia: local Surgeon: CANDACE SALDIVAR Estimated blood loss: minimal
--- NOTE | 2021-10-20 16:43 | Progress Note ---
<JANNACANDACE YenKelly - Last Filed: 10/20/21 16:43> Assessment and Plan Assessment and plan: This is a 26-year-old male with HTN, DM, asthma and gout admitted with COVID-19 pneumonia and pulmonary embolism. Neuro: Self-reported anxiety -S/p Precedex drip and Ativan as needed -Currently sedated on propofol, fentanyl and Versed -RASS goal -2 to 3 -Bilateral soft restraints in place for safety -Avoid delirium -Maintain sleep-wake cycle Cardio: Cardiomegaly on cxr, h/o HTN -CTA chest showed mild cardiomegaly without evidence of right heart strain -Hold home antihypertensive regimen -Blood pressure monitoring per protocol -will reattempt noemí Respiratory: Acute hypoxic respiratory failure, h/o asthma -S/p BiPAP and OptiFlow/nonrebreather -CCM consulted, appreciate recommendations -Intubated on 10/20 with 8.00 ETT at 24 cm at the right lip -VAP bundle -CXR and ABG noted -Post intubation ABG 7.282/five 3.7/57.3/24.8 on 100% FiO2 -Increase PEEP to 18 per CCM -Current vent settings: Assist control rate 20, tidal volume 450, PEEP 18 FiO2 100% -See RT notes for titration -Daily CXR and ABGs -Given 40 of Lasix -800 to 900 mL urine output noted GI: Morbid obesity, hepatic steatosis, transaminitis -CTA chest showed hepatic steatosis -Nutrition consult for tube feeding -BR: Senokot -PPI -24-hour positive 480 mL -Acute hepatitis panel negative : Rhabdomyolysis, hypernatremia, hypokalemia, metabolic acidosis -Trend BMP -Strict intake and output with Scott catheter -Intervene with electrolytes as needed -S/p IV fluids for 24 hours ID: COVID-19 pneumonia and influenza -CTA chest showed bilateral lung infiltrates concerning for atypical pneumonia -Infectious disease consulted, appreciate recommendations -Droplet/isolation precautions -IV dexamethasone for 10 days () -Twice daily dosing for morbid obesity -S/p Actemra 10/20/2021 -Tamiflu for 5 days () -Antibiotic therapy: Azithromycin (), Rocephin (10/19 -10/23) -IV remdesivir () -Trend COVID-19 inflammatory markers -Anticoagulation for pulmonary embolism -Procalcitonin pending Endo: Hyperglycemia, h/o DM -SSI -Accu-Cheks every 6 -Avoid hypoglycemia -Hemoglobin A1c 7.9 Heme: Pulmonary embolism -CTA chest showed pulmonary embolus without evidence of right heart strain -Lovenox changed to heparin drip today -Bilateral lower extremity SCDs while in bed -Trend CBC -Transfuse for hemoglobin less than 7 The high probability of a clinically significant, sudden or life threatening deterioration of the [multi] system(s) required my full and direct attention, intervention and personal management. The aggregate critical care time was [90] minutes. This time is in addition to time spent performing reported procedures but includes the following: [x] Data Review and interpretation [x] Patient assessment and monitoring of vital signs [x] Documentation [x] Medication orders and management Disposition Plan: icu Total Time Spent with Patient (Minutes): 90 History Interval history: This is a 26-year-old male with HTN, DM, asthma and gout who presented to the emergency department on 10/18 with complaints of increasing shortness of breath over the past 3 days and states that he was diagnosed with Covid and flu couple days ago. Patient was given Zithromax and steroids outpatient however his anxiety and shortness of breath increased over the past 3 days prompting a visit to the emergency department. In the emergency department patient's oxygen saturations were 90% on nonrebreather and CT chest showed bilateral pulmonary embolism. Of note he is not vaccinated against COVID-19. Patient was admitted to the hospitalist service with consults to infectious disease. 10/19: Patient is currently anxious and restless with moderate respiratory distress. He is hypoxic and needing nasal cannula to and NRB alternately. BP and pulse stable. Patient has dry cough. Afebrile. No acute GI symptoms currently. 10/20: Patient was a code met from the floor to ICU. Patient was initially plac ed on BiPAP however due to his anxiety he was unable to tolerate and ultimately was intubated. Patient is currently sedated on fentanyl and Versed. Central line and Scott catheter placed today. Bilateral respirations in place. Family updated at bedside Hospitalist Physical - Constitutional Vitals: Temp Pulse Resp BP Pulse Ox 99.1 F 94 H 59 H 105/65 95 10/20/21 11:45 10/20/21 16:14 10/20/21 13:12 10/20/21 14:04 10/20/21 16:14 General appearance: Present: mild distress, well-nourished, obese (Morbid obese with BMI 47), other (Moderate respiratory distress and anxious) HEART Score - HEART Score EKG: Normal Age: < 45 Risk factors: 1-2 risk factors Troponin: Troponin T < 0.010 ng/mL (0.00-0.029) 10/18/21 16:39 Troponin: < normal limit - Critical Actions Critical Actions: 0-3 pts:0.9-1.7%risk of adverse cardiac event.Candidate for discharge Results - Labs CBC & Chem 7: 10/20/21 13:30 10/20/21 Unknown Labs: Laboratory Last Values WBC 9.9 K/mm3 (4.5-11.0) 10/19/21 23:52 RBC 4.81 M/mm3 (3.65-5.03) 10/19/21 23:52 Hgb 11.8 gm/dl (11.8-15.2) 10/20/21 13:30 Hct 37.9 % (35.5-45.6) 10/20/21 13:30 MCV 79 fl (84-94) L 10/19/21 23:52 MCH 25 pg (28-32) L 10/19/21 23:52 MCHC 32 % (32-34) 10/19/21 23:52 RDW 15.9 % (13.2-15.2) H 10/19/21 23:52 Plt Count 333 K/mm3 (140-440) 10/20/21 13:30 Lymph % (Auto) 4.9 % (13.4-35.0) L 10/19/21 23:52 Carbon % (Auto) 5.3 % (0.0-7.3) 10/19/21 23:52 Eos % (Auto) 0.0 % (0.0-4.3) 10/19/21 23:52 Baso % (Auto) 0.1 % (0.0-1.8) 10/19/21 23:52 Lymph # (Auto) 0.5 K/mm3 (1.2-5.4) L 10/19/21 23:52 Carbon # (Auto) 0.5 K/mm3 (0.0-0.8) 10/19/21 23:52 Eos # (Auto) 0.0 K/mm3 (0.0-0.4) 10/19/21 23:52 Baso # (Auto) 0.0 K/mm3 (0.0-0.1) 10/19/21 23:52 Seg Neutrophils % 89.7 % (40.0-70.0) H 10/19/21 23:52 Seg Neutrophils # 8.9 K/mm3 (1.8-7.7) H 10/19/21 23:52 PT 14.8 Sec. (12.2-14.9) 10/20/21 13:30 INR 1.05 (0.87-1.13) 10/20/21 13:30 APTT 36.1 Sec. (24.2-36.6) 10/20/21 13:30 D-Dimer 231.57 ng/mlDDU (0-234) 10/18/21 16:39 Sodium 133 mmol/L (137-145) L 10/19/21 23:52 Potassium 4.5 mmol/L (3.6-5.0) 10/19/21 23:52 Chloride 95.0 mmol/L (98-107) L 10/19/21 23:52 Carbon Dioxide 23 mmol/L (22-30) 10/20/21 Unknown Anion Gap 25 mmol/L 10/19/21 23:52 BUN 20 mg/dL (9-20) 10/20/21 Unknown Creatinine 0.8 mg/dL (0.8-1.3) 10/20/21 Unknown Estimated GFR > 60 ml/min 10/20/21 Unknown BUN/Creatinine Ratio 25 % 10/20/21 Unknown Glucose 191 mg/dL (75-100) H 10/20/21 Unknown POC Glucose 239 mg/dL (70-105) H 10/20/21 15:49 Hemoglobin A1c 7.9 % (4-6) H 10/19/21 23:52 Lactic Acid 1.40 mmol/L (0.7-2.0) 10/18/21 16:39 Calcium 8.3 mg/dL (8.4-10.2) L 10/20/21 Unknown Magnesium 1.90 mg/dL (1.7-2.3) 10/18/21 16:39 Ferritin 786.1 ng/mL (30.0-300.0) H 10/19/21 23:52 Total Bilirubin 0.30 mg/dL (0.1-1.2) 10/20/21 Unknown AST 107 units/L (5-40) H 10/20/21 Unknown ALT 94 units/L (7-56) H 10/20/21 Unknown Alkaline Phosphatase 60 units/L (35-129) 10/20/21 Unknown Lactate Dehydrogenase 625 units/L (91-180) H 10/19/21 23:52 Total Creatine Kinase 1484 units/L (55-170) H 10/18/21 16:39 CK-MB (CK-2) 3.3 ng/mL (0.0-4.0) 10/18/21 16:39 CK-MB (CK-2) Rel Index 0.2 (0-4) 10/18/21 16:39 Troponin T < 0.010 ng/mL (0.00-0.029) 10/18/21 16:39 C-Reactive Protein 18.80 mg/dL (0.00-1.30) H 10/19/21 23:52 C-Reactive Protein 19.20 mg/dL (0.00-1.30) H 10/19/21 23:52 Total Protein 7.2 g/dL (6.3-8.2) 10/20/21 Unknown Albumin 3.5 g/dL (3.9-5) L 10/20/21 Unknown Albumin/Globulin Ratio 0.9 % 10/20/21 Unknown Lipase 15 units/L (13-60) 10/18/21 16:39 Urine Color Yellow (Yellow) 10/18/21 22:26 Urine Turbidity Clear (Clear) 10/18/21 22:26 Urine pH 6.0 (5.0-7.0) 10/18/21 22:26 Ur Specific Rumsey 1.025 (1.003-1.030) 10/18/21 22:26 Urine Protein 100 mg/dl mg/dL (Negative) 10/18/21 22:26 Urine Glucose (UA) Neg mg/dL (Negative) 10/18/21 22:26 Urine Ketones Neg mg/dL (Negative) 10/18/21 22:26 Urine Blood Sm (Negative) 10/18/21 22:26 Urine Nitrite Neg (Negative) 10/18/21 22:26 Urine Bilirubin Neg (Negative) 10/18/21 22: Urine Urobilinogen < 2.0 mg/dL (<2.0) 10/18/21 22:26 Ur Leukocyte Esterase Neg (Negative) 10/18/21 22:26 Urine WBC (Auto) < 1.0 /HPF (0.0-6.0) 10/18/21 22: Urine RBC (Auto) < 1.0 /HPF (0.0-6.0) 10/18/21 22: U Epithel Cells (Auto) < 1.0 /HPF (0-13.0) 10/18/21 22: Urine Bacteria (Auto) 1+ /HPF (Negative) 10/18/21 22: Coronavirus (PCR) Positive (Negative) A 10/19/21 08:24 Hepatitis A IgM Ab Non-reactive (NonReactive) 10/19/21 23:52 Hep Bs Antigen Nonreactive (Negative) 10/19/21 23:52 Hep B Core IgM Ab Non-reactive (NonReactive) 10/19/21 23:52 Hepatitis C Antibody Non-reactive (NonReactive) 10/19/21 23:52 Microbiology: Microbiology 10/18/21 16:39 Peripheral/Venous Blood Culture - Preliminary NO GROWTH AFTER 24 HOURS 10/18/21 16:47 Peripheral/Venous Blood Culture - Preliminary NO GROWTH AFTER 24 HOURS Scott/IV: Voiding Method Bedside Commode Active Medications - Current Medications Current Medications: Generic Name Dose Route Start Last Admin Trade Name Freq PRN Reason Stop Dose Admin Acetaminophen 650 mg 10/20/21 13:30 Acetaminophen 325 Mg/10.15 Ml Oral Liqd Unit Dose FEEDTUBE Q6H PRN Pain MILD(1-3)/Fever >100.5/HUSSEIN Al Hydrox/Mg Hydrox/Simethicone 30 ml 10/20/21 13:30 Alum-Mag Hydroxide-Simethicone [id number]/5ml Oral Liqd 30 Ml PO Q4H PRN Indigestion Lipase/Protease/Amylase 1 each 10/20/21 15:15 Lipase 10,500/Protease 25,000/Amylase 43,750 (Units) Dr Cap FEEDTUBE PRN PRN For Clogged Feeding Tube Benzonatate 200 mg 10/19/21 14:00 10/20/21 05:06 Benzonatate 100 Mg Cap PO 200 mg Q8HR ALBIN Administration Bisacodyl 10 mg 10/20/21 13:30 Bisacodyl 10 Mg Rect Supp WI QDAY PRN constipation unrelieved by MOM Dexamethasone 8 mg 10/20/21 22:00 Dexamethasone 4 Mg/Ml Vial IV 10/28/21 10:01 BID ALBIN Dextrose 50 ml 10/20/21 13:30 Dextrose 50% In Water (25gm) 50 Ml Syringe IV Q30MIN PRN Hypoglycemia Protocol Famotidine 20 mg 10/20/21 14:00 Famotidine 20 Mg/2 Ml Inj IV BID ALBIN Fentanyl 50 mcg 10/20/21 13:25 Fentanyl 100 Mcg/2 Ml Inj IV Q10MIN PRN ANALGESIA Guaifenesin 10 ml 10/20/21 03:00 10/20/21 03:24 Guaifenesin Dm 200/20 Mg Oral Liqd 10 Ml PO 10 ml Q4H PRN Administration Cough Haloperidol Lactate 5 mg 10/20/21 13:30 10/20/21 13:05 Haloperidol Lactate 5 Mg/1 Ml Inj IV 10/20/21 17:30 5 mg ONCE@1330 ALBIN Administration Heparin Sodium (Porcine) 5,000 unit 10/20/21 10:41 Heparin 10,000 Units/10 Ml Vial IV Q6H PRN Anti-Xa Assay < 0.1 units/ml Hydrophilic Ointment 1 applic 10/20/21 13:25 Lip Therapy Vaseline TP Q2HR PRN Dry Lips Ceftriaxone Sodium 2 gm in 100 mls @ 200 mls/hr 10/19/21 20:00 10/19/21 23:51 Rocephin/Ns 2 Gm/100 Ml IV 10/22/21 20:29 200 mls/hr Q24H ALBIN Administration Azithromycin 500 mg in 250 mls @ 250 mls/hr 10/19/21 21:00 10/19/21 23:51 Zithromax/Ns IV 10/22/21 21:59 250 mls/hr Q24H ALBIN Administration REMDESIVIR 100 mg/ Sodium 250 mls @ 500 mls/hr 10/20/21 21:00 Chloride IV 10/23/21 21:29 Q24HR@2100 ALBIN Heparin Sodium/Sodium Chloride 25,000 unit in 500 mls @ 30 mls/hr 10/20/21 20:00 Heparin/ 0.45% Nacl-25,000 Unit/500 Ml IV TITR ALBIN Protocol 1,500 UNITS/HR Midazolam HCl 100 mg/ Sodium 100 mls @ 2 mls/hr 10/20/21 14:00 Chloride IV TITR ALBIN Protocol 2 MG/HR Fentanyl Citrate 2,000 mcg in 100 mls @ 7.938 mls/hr 10/20/21 14:00 Fentanyl Drip Premix IV TITR ALBIN Protocol 1 MCG/KG/HR Propofol 1,000 mg in 100 mls @ 4.763 mls/hr 10/20/21 14:00 Diprivan 10 Mg/Ml IV TITR ALBIN Protocol 5 MCG/KG/MIN Sodium Chloride 1,000 mls @ 1 mls/hr 10/20/21 14:30 Nacl 0.9% 500 Ml IV DIRECT PRN ARTERIAL LINE FLUSH Insulin Human Lispro 0 unit 10/20/21 12:00 10/20/21 11:47 Insulin Lispro 100 Unit/Ml SUB-Q 2 unit Q6HR ALBIN Administration Protocol Midazolam HCl 2 mg 10/20/21 13:25 Midazolam 2 Mg/2 Ml Inj IV Q10MIN PRN Sedation Multi-Ingred Cream/Lotion/Oil/Oint 1 applic 10/20/21 13:25 Mineral Oil/Petrolatum, White Ophth Oint 3.5 Gm OU Q4HR PRN Dry Eye(s) Ondansetron HCl 4 mg 10/19/21 04:21 Ondansetron 4 Mg/2 Ml Inj IV Q8H PRN Nausea And Vomiting Oseltamivir Phosphate 75 mg 10/19/21 12:00 10/19/21 23:54 Oseltamivir 75 Mg Cap PO 10/23/21 22:01 75 mg BID ALBIN Administration Promethazine HCl 25 mg 10/19/21 04:38 10/20/21 05:06 Promethazine 25 Mg Tab PO 25 mg Q6H PRN Administration Nausea And Vomiting Senna 8.8 mg 10/20/21 22:00 Sennosides Oral Liqd 8.8 Mg/5 Ml Oral Liqd FEEDTUBE BID ALBIN Senna/Docusate Sodium 1 tab 10/20/21 22:00 Sennosides/Docusate Sodium 8.6/50 Mg Tab FEEDTUBE BID ALBIN Simple Syrup 15 ml 10/20/21 15:15 Simple Syrup 15 Ml FEEDTUBE PRN PRN Hypoglycemia Simple Syrup 30 ml 10/20/21 15:15 Simple Syrup 15 Ml FEEDTUBE PRN PRN Hypoglycemia Sodium Bicarbonate 325 mg 10/20/21 15:15 Sodium Bicarbonate 325 Mg Tab FEEDTUBE PRN PRN For Clogged Feeding Tube Sodium Chloride 10 ml 10/19/21 10:00 10/20/21 09:18 Sodium Chloride 0.9% 10 Ml Flush Syringe IV 10 ml BID ALBIN Administration Sodium Chloride 10 ml 10/19/21 04:26 Sodium Chloride 0.9% 10 Ml Flush Syringe IV PRN PRN flush prior to & after IV med Sodium Chloride 50 ml 10/19/21 17:00 10/20/21 00:09 Sodium Chloride 0.9% 50 Ml Ivpb IV 10/23/21 21:01 Not Given Q24HR@2100 [facility] Nutrition/Malnutrition Assess - Dietary Evaluation Nutrition/Malnutrition Findings: Nutrition Notes Start: 10/19/21 14:34 Freq: Status: Active Protocol: Document 10/20/21 14:42 MAYANK (Rec: 10/20/21 15:14 MAYANK [id number]) Nutrition Notes Need for Assessment generated from: MD Order Initial or Follow up Reassessment Current Diagnosis Diabetes,Hypertension, Respiratory Failure, Malnutrition Other Pertinent Diagnosis COVID-19, Pulm Embolism, Pneumonia, Transaminitis, Rabdomyolysis. Current Diet TF-Glucerna 1.2 Franko @ 108 ml/ hr (since D 10/20). Labs/Tests 10/20: Na p, K p, Cl p, Glu 191, Ca 8.3, AST 107, ALT 94, C-RP 19.2, Alb 3.5. Pertinent Medications 10/20: Insulin, Propofol 1000 mg in 100 ml @ 4.763 ml/hr, others nutritionally unremarkable. Height 6 ft Weight 158.757 kg [place] Body Weight (kg) 80.90 BMI 47.5 Weight change and time frame No body weight change reported . Subjective/Other Information RD consult for write/manage TF assessment. Pt sedated ans intubated. TF Glucerna ordered. F/U tomorrow for TF tolerance assessment.. Percent of energy/protein needs met: Prescribed TF-Glucerna Diet provides for energy/protein needs (3,115 Kcal/156 g) during LOS; 100% Kcal; 100% AA . Burn Absent Trauma Absent GI Symptoms None Food Allergy No Skin Integrity/Comment Clear, warm, dry. Current % PO Other Minimum of two criteria No #1 Nutrition Diagnosis Inadequate oral intake Etiology Pt sedated & intubated. As Evidenced by Signs and Symptoms MD request for write/mange TF. Is patient on ventilator? Yes Is Patient Ambulatory and/or Out of Bed No REE-(Vantage-St Jeor-confined to bed) [phone] Calculation Used for Recommendations [facility] Additional Notes Protein: 1.2-1.5 g/Kg; 144-180 g/day (from AdBW + critical care). Fluids: 1 ml/Kcal, or as per MD. Nutrition Intervention Nutrition Support: Start Glucerna 1.2 Franko @ 108 ml/hr. Flush: 171 ml water Q 4 hr. Kcal 3,115 Protein (gm) 156 Carbohydrates (gm) 297 Fat (gm) 156 Fluid (mL) 2,090 Fiber (gm) 42 % RDI: 100% Kcal; 100% AA. Goal #1 Provide through Enteral Nutrition at least 75% of energy/protein needs during LOS. Goal #2 Maintain body weight within +/ -3% of admission BWt during LOS. Goal #3 Reach and maintain acceptable chemistry lab values during LOS. Follow-Up By: 10/21/21 Additional Comments Continue monitoring TF tolerance, Hydration, and BM. <WALLY MEHTA R - Last Filed: 10/20/21 20:29> History Interval history: Attendings note: Patient seen and examined by me in ICU. Patient has been experiencing progressively worsening hypoxia since admitted requiring him to be transferred to ICU this morning for rapid deterioration. And initially refused ABG and transfer to ICU but later agreed to. His are present at bedside and discussed in detail. Patient was alert but extremely anxious with moderate to severe respiratory distress on nonrebreather mask. Lung sounds diminished but no wheezes or rales. No significant peripheral edema. Ordered Actemra 800 mg x 1 dose discussed with the pharmacy. Patient was also seen by pulmonary in consultation. Patient was unable to tolerate BiPAP on Precedex infusion and he needs to be treated by anesthesia. Prognosis is guarded since he has multiple risk factors including obesity and unvaccinated status. Discussed with nurse practitioner. Hospitalist Physical - Constitutional Vitals: Temp Pulse Resp BP Pulse Ox 98.5 F 108 H 17 131/85 97 10/20/21 19:33 10/20/21 19:51 10/20/21 19:51 10/20/21 19:51 10/20/21 19:51 HEART Score - HEART Score Troponin: Troponin T < 0.010 ng/mL (0.00-0.029) 10/18/21 16:39 Results - Labs CBC & Chem 7: 10/20/21 13:30 10/20/21 Unknown Labs: Laboratory Last Values WBC 9.9 K/mm3 (4.5-11.0) 10/19/21 23:52 RBC 4.81 M/mm3 (3.65-5.03) 10/19/21 23:52 Hgb 11.8 gm/dl (11.8-15.2) 10/20/21 13:30 Hct 37.9 % (35.5-45.6) 10/20/21 13:30 MCV 79 fl (84-94) L 10/19/21 23:52 MCH 25 pg (28-32) L 10/19/21 23:52 MCHC 32 % (32-34) 10/19/21 23:52 RDW 15.9 % (13.2-15.2) H 10/19/21 23:52 Plt Count 333 K/mm3 (140-440) 10/20/21 13:30 Lymph % (Auto) 4.9 % (13.4-35.0) L 10/19/21 23:52 Carbon % (Auto) 5.3 % (0.0-7.3) 10/19/21 23:52 Eos % (Auto) 0.0 % (0.0-4.3) 10/19/21 23:52 Baso % (Auto) 0.1 % (0.0-1.8) 10/19/21 23:52 Lymph # (Auto) 0.5 K/mm3 (1.2-5.4) L 10/19/21 23:52 Carbon # (Auto) 0.5 K/mm3 (0.0-0.8) 10/19/21 23:52 Eos # (Auto) 0.0 K/mm3 (0.0-0.4) 10/19/21 23:52 Baso # (Auto) 0.0 K/mm3 (0.0-0.1) 10/19/21 23:52 Seg Neutrophils % 89.7 % (40.0-70.0) H 10/19/21 23:52 Seg Neutrophils # 8.9 K/mm3 (1.8-7.7) H 10/19/21 23:52 PT 14.8 Sec. (12.2-14.9) 10/20/21 13:30 INR 1.05 (0.87-1.13) 10/20/21 13:30 APTT 36.1 Sec. (24.2-36.6) 10/20/21 13:30 D-Dimer 231.57 ng/mlDDU (0-234) 10/18/21 16:39 ABG pH 7.282 (7.320-7.450) L 10/20/21 14:40 POC ABG pCO2 53.7 mmHg (32.0-48.0) H 10/20/21 14:40 POC ABG pO2 57.3 mmHg (83-108) L 10/20/21 14:40 POC ABG HCO3 24.8 10/20/21 14:40 ABG O2 Saturation 84.0 (0-100) 10/20/21 14:40 POC ABG Base Excess -2.5 10/20/21 14:40 ABG Hemoglobin 12.9 (12.0-17.5) 10/20/21 14:40 ABG Oxyhemoglobin 83.6 (94-98) L 10/20/21 14:40 ABG Methemoglobin 0.2 (0.0-1.5) 10/20/21 14:40 ABG Sodium 132.2 mmol/L (136.0-145.0) L 10/20/21 14:40 ABG Potassium 5.5 mmol/L (3.40-4.50) H 10/20/21 14:40 ABG Chloride 101.0 mmol/L (98-107) 10/20/21 14:40 ABG Glucose 255 mg/dL (65-95) H 10/20/21 14:40 Carboxyhemoglobin 0.3 (0.5-1.5) L 10/20/21 14:40 FiO2 % 100 10/20/21 14:40 Sodium 135 mmol/L (137-145) L 10/20/21 Unknown Potassium 5.0 mmol/L (3.6-5.0) 10/20/21 Unknown Chloride 96.5 mmol/L (98-107) L 10/20/21 Unknown Carbon Dioxide 23 mmol/L (22-30) 10/20/21 Unknown Anion Gap 21 mmol/L 10/20/21 Unknown BUN 20 mg/dL (9-20) 10/20/21 Unknown Creatinine 0.8 mg/dL (0.8-1.3) 10/20/21 Unknown Estimated GFR > 60 ml/min 10/20/21 Unknown BUN/Creatinine Ratio 25 % 10/20/21 Unknown Glucose 191 mg/dL (75-100) H 10/20/21 Unknown POC Glucose 198 mg/dL (70-105) H 10/20/21 19:11 Hemoglobin A1c 7.9 % (4-6) H 10/19/21 23:52 Lactic Acid 1.40 mmol/L (0.7-2.0) 10/18/21 16:39 Calcium 8.3 mg/dL (8.4-10.2) L 10/20/21 Unknown Magnesium 1.90 mg/dL (1.7-2.3) 10/18/21 16:39 Ferritin 786.1 ng/mL (30.0-300.0) H 10/19/21 23:52 Total Bilirubin 0.30 mg/dL (0.1-1.2) 10/20/21 Unknown AST 107 units/L (5-40) H 10/20/21 Unknown ALT 94 units/L (7-56) H 10/20/21 Unknown Alkaline Phosphatase 60 units/L (35-129) 10/20/21 Unknown Lactate Dehydrogenase 625 units/L (91-180) H 10/19/21 23:52 Total Creatine Kinase 1484 units/L (55-170) H 10/18/21 16:39 CK-MB (CK-2) 3.3 ng/mL (0.0-4.0) 10/18/21 16:39 CK-MB (CK-2) Rel Index 0.2 (0-4) 10/18/21 16:39 Troponin T < 0.010 ng/mL (0.00-0.029) 10/18/21 16:39 C-Reactive Protein 18.80 mg/dL (0.00-1.30) H 10/19/21 23:52 C-Reactive Protein 19.20 mg/dL (0.00-1.30) H 10/19/21 23:52 Total Protein 7.2 g/dL (6.3-8.2) 10/20/21 Unknown Albumin 3.5 g/dL (3.9-5) L 10/20/21 Unknown Albumin/Globulin Ratio 0.9 % 10/20/21 Unknown Lipase 15 units/L (13-60) 10/18/21 16:39 Arterial Blood Glucose 255 mg/dL (65-95) H 10/20/21 14:40 Urine Color Yellow (Yellow) 10/18/21 22:26 Urine Turbidity Clear (Clear) 10/18/21 22: Urine pH 6.0 (5.0-7.0) 10/18/21 22:26 Ur Specific Rumsey 1.025 (1.003-1.030) 10/18/21 22:26 Urine Protein 100 mg/dl mg/dL (Negative) 10/18/21 22:26 Urine Glucose (UA) Neg mg/dL (Negative) 10/18/21 22: Urine Ketones Neg mg/dL (Negative) 10/18/21 22:26 Urine Blood Sm (Negative) 10/18/21 22:26 Urine Nitrite Neg (Negative) 10/18/21 22: Urine Bilirubin Neg (Negative) 10/18/21 22: Urine Urobilinogen < 2.0 mg/dL (<2.0) 10/18/21 22:26 Ur Leukocyte Esterase Neg (Negative) 10/18/21 22:26 Urine WBC (Auto) < 1.0 /HPF (0.0-6.0) 10/18/21 22: Urine RBC (Auto) < 1.0 /HPF (0.0-6.0) 10/18/21 22: U Epithel Cells (Auto) < 1.0 /HPF (0-13.0) 10/18/21 22: Urine Bacteria (Auto) 1+ /HPF (Negative) 10/18/21 22:26 Coronavirus (PCR) Positive (Negative) A 10/19/21 08:24 Hepatitis A IgM Ab Non-reactive (NonReactive) 10/19/21 23:52 Hep Bs Antigen Nonreactive (Negative) 10/19/21 23:52 Hep B Core IgM Ab Non-reactive (NonReactive) 10/19/21 23:52 Hepatitis C Antibody Non-reactive (NonReactive) 10/19/21 23:52 Microbiology: Microbiology 10/18/21 16:39 Peripheral/Venous Blood Culture - Preliminary NO GROWTH AFTER 48 HOURS 10/18/21 16:47 Peripheral/Venous Blood Culture - Preliminary NO GROWTH AFTER 48 HOURS Scott/IV: Voiding Method Indwelling Catheter Active Medications - Current Medications Current Medications: Generic Name Dose Route Start Last Admin Trade Name Freq PRN Reason Stop Dose Admin Acetaminophen 650 mg 10/20/21 13:30 Acetaminophen 325 Mg/10.15 Ml Oral Liqd Unit Dose FEEDTUBE Q6H PRN Pain MILD(1-3)/Fever >100.5/HUSSEIN Al Hydrox/Mg Hydrox/Simethicone 30 ml 10/20/21 13:30 Alum-Mag Hydroxide-Simethicone [id number]/5ml Oral Liqd 30 Ml PO Q4H PRN Indigestion Lipase/Protease/Amylase 1 each 10/20/21 15:15 Lipase 10,500/Protease 25,000/Amylase 43,750 (Units) Cap FEEDTUBE PRN PRN For Clogged Feeding Tube Benzonatate 200 mg 10/19/21 14:00 10/20/21 18:58 Benzonatate 100 Mg Cap PO Not Given Q8HR ALBIN Bisacodyl 10 mg 10/20/21 13:30 Bisacodyl 10 Mg Rect Supp WI QDAY PRN constipation unrelieved by MOM Dexamethasone 8 mg 10/20/21 22:00 Dexamethasone 4 Mg/Ml Vial IV 10/28/21 10:01 BID ALBIN Dextrose 50 ml 10/20/21 13:30 Dextrose 50% In Water (25gm) 50 Ml Syringe IV Q30MIN PRN Hypoglycemia Protocol Famotidine 20 mg 10/20/21 14:00 10/20/21 14:20 Famotidine 20 Mg/2 Ml Inj IV 20 mg BID ALBIN Administration Fentanyl 50 mcg 10/20/21 13:25 Fentanyl 100 Mcg/2 Ml Inj IV Q10MIN PRN ANALGESIA Guaifenesin 10 ml 10/20/21 03:00 10/20/21 03:24 Guaifenesin Dm 200/20 Mg Oral Liqd 10 Ml PO 10 ml Q4H PRN Administration Cough Heparin Sodium (Porcine) 5,000 unit 10/20/21 10:41 Heparin 10,000 Units/10 Ml Vial IV Q6H PRN Anti-Xa Assay < 0.1 units/ml Hydrophilic Ointment 1 applic 10/20/21 13:25 Lip Therapy Vaseline TP Q2HR PRN Dry Lips Ceftriaxone Sodium 2 gm in 100 mls @ 200 mls/hr 10/19/21 20:00 10/20/21 20:05 Rocephin/Ns 2 Gm/100 Ml IV 10/22/21 20:29 200 mls/hr Q24H ALBIN Administration Azithromycin 500 mg in 250 mls @ 250 mls/hr 10/19/21 21:00 10/19/21 23:51 Zithromax/Ns IV 10/22/21 21:59 250 mls/hr Q24H ALBIN Administration REMDESIVIR 100 mg/ Sodium 250 mls @ 500 mls/hr 10/20/21 21:00 Chloride IV 10/23/21 21:29 Q24HR@2100 ALBIN Heparin Sodium/Sodium Chloride 25,000 unit in 500 mls @ 30 mls/hr 10/20/21 20:00 10/20/21 20:11 Heparin/ 0.45% Nacl-25,000 Unit/500 Ml IV 1,500 units/hr TITR ALBIN 30 mls/hr Administration Protocol 1,500 UNITS/HR Midazolam HCl 100 mg/ Sodium 100 mls @ 2 mls/hr 10/20/21 14:00 10/20/21 14:30 Chloride IV 2 mg/hr TITR ALBIN 2 mls/hr Administration Protocol 2 MG/HR Fentanyl Citrate 2,000 mcg in 100 mls @ 7.938 mls/hr 10/20/21 14:00 10/20/21 19:04 Fentanyl Drip Premix IV 4 mcg/kg/hr TITR ALBIN 31.751 mls/hr Administration Protocol 1 MCG/KG/HR Propofol 1,000 mg in 100 mls @ 4.763 mls/hr 10/20/21 14:00 10/20/21 15:00 Diprivan 10 Mg/Ml IV 10 mcg/kg/min TITR ALBIN 9.525 mls/hr Titration Protocol 5 MCG/KG/MIN Sodium Chloride 1,000 mls @ 1 mls/hr 10/20/21 14:30 Nacl 0.9% 500 Ml IV DIRECT PRN ARTERIAL LINE FLUSH Insulin Glargine 10 units 10/20/21 22:00 Insulin Glargine 100 Units/Ml SUB-Q QHS NOVANT [facility] Insulin Human Lispro 0 unit 10/20/21 12:00 10/20/21 19:00 Insulin Lispro 100 Unit/Ml SUB-Q 2 unit Q6HR [facility] Administration Protocol Midazolam HCl 2 mg 10/20/21 13:25 10/20/21 14:25 Midazolam 2 Mg/2 Ml Inj IV 2 mg Q10MIN PRN Administration Sedation Multi-Ingred Cream/Lotion/Oil/Oint 1 applic 10/20/21 13:25 Mineral Oil/Petrolatum, White Ophth Oint 3.5 Gm OU Q4HR PRN Dry Eye(s) Ondansetron HCl 4 mg 10/19/21 04:21 Ondansetron 4 Mg/2 Ml Inj IV Q8H PRN Nausea And Vomiting Oseltamivir Phosphate 75 mg 10/19/21 12:00 10/19/21 23:54 Oseltamivir 75 Mg Cap PO 10/23/21 22:01 75 mg BID [facility] Administration Promethazine HCl 25 mg 10/19/21 04:38 10/20/21 05:06 Promethazine 25 Mg Tab PO 25 mg Q6H PRN Administration Nausea And Vomiting Senna 8.8 mg 10/20/21 22:00 Sennosides Oral Liqd 8.8 Mg/5 Ml Oral Liqd FEEDTUBE BID [facility] Senna/Docusate Sodium 1 tab 10/20/21 22:00 Sennosides/Docusate Sodium 8.6/50 Mg Tab FEEDTUBE BID [facility] Simple Syrup 15 ml 10/20/21 15:15 Simple Syrup 15 Ml FEEDTUBE PRN PRN Hypoglycemia Simple Syrup 30 ml 10/20/21 15:15 Simple Syrup 15 Ml FEEDTUBE PRN PRN Hypoglycemia Sodium Bicarbonate 325 mg 10/20/21 15:15 Sodium Bicarbonate 325 Mg Tab FEEDTUBE PRN PRN For Clogged Feeding Tube Sodium Chloride 10 ml 10/19/21 10:00 10/20/21 09:18 Sodium Chloride 0.9% 10 Ml Flush Syringe IV 10 ml BID [facility] Administration Sodium Chloride 10 ml 10/19/21 04:26 Sodium Chloride 0.9% 10 Ml Flush Syringe IV PRN PRN flush prior to & after IV med Sodium Chloride 50 ml 10/19/21 17:00 10/20/21 00:09 Sodium Chloride 0.9% 50 Ml Ivpb IV 10/23/21 21:01 Not Given Q24HR@2100 [facility] Nutrition/Malnutrition Assess - Dietary Evaluation Nutrition/Malnutrition Findings: Nutrition Notes Start: 10/19/21 14:34 Freq: Status: Active Protocol: Document 10/20/21 14:42 MAYANK (Rec: 10/20/21 15:14 MAYANK [id number]) Nutrition Notes Need for Assessment generated from: MD Order Initial or Follow up Reassessment Current Diagnosis Diabetes,Hypertension, Respiratory Failure, Malnutrition Other Pertinent Diagnosis COVID-19, Pulm Embolism, Pneumonia, Transaminitis, Rabdomyolysis. Current Diet TF-Glucerna 1.2 Franko @ 108 ml/ hr (since D 10/20). Labs/Tests 10/20: Na p, K p, Cl p, Glu 191, Ca 8.3, AST 107, ALT 94, C-RP 19.2, Alb 3.5. Pertinent Medications 10/20: Insulin, Propofol 1000 mg in 100 ml @ 4.763 ml/hr, others nutritionally unremarkable. Height 6 ft Weight 158.757 kg [place] Body Weight (kg) 80.90 BMI 47.5 Weight change and time frame No body weight change reported . Subjective/Other Information RD consult for write/manage TF assessment. Pt sedated ans intubated. TF Glucerna ordered. F/U tomorrow for TF tolerance assessment.. Percent of energy/protein needs met: Prescribed TF-Glucerna Diet provides for energy/protein needs (3,115 Kcal/156 g) during LOS; 100% Kcal; 100% AA . Burn Absent Trauma Absent GI Symptoms None Food Allergy No Skin Integrity/Comment Clear, warm, dry. Current % PO Other Minimum of two criteria No #1 Nutrition Diagnosis Inadequate oral intake Etiology Pt sedated & intubated. As Evidenced by Signs and Symptoms MD request for write/mange TF. Is patient on ventilator? Yes Is Patient Ambulatory and/or Out of Bed No REE-(Vantage-St. Jeor-confined to bed) [phone] Calculation Used for Recommendations Vantage-St Jeor Additional Notes Protein: 1.2-1.5 g/Kg; 144-180 g/day (from AdBW + critical care). Fluids: 1 ml/Kcal, or as per MD. Nutrition Intervention Nutrition Support: Start Glucerna 1.2 Franko @ 108 ml/hr. Flush: 171 ml water Q 4 hr. Kcal 3,115 Protein (gm) 156 Carbohydrates (gm) 297 Fat (gm) 156 Fluid (mL) 2,090 Fiber (gm) 42 % RDI: 100% Kcal; 100% AA. Goal #1 Provide through Enteral Nutrition at least 75% of energy/protein needs during LOS. Goal #2 Maintain body weight within +/ -3% of admission BWt during LOS. Goal #3 Reach and maintain acceptable chemistry lab values during LOS. Follow-Up By: 10/21/21 Additional Comments Continue monitoring TF tolerance, Hydration, and BM.
--- NOTE | 2021-10-20 19:04 | XRay Report ---
ABDOMEN 1 VIEW(S) INDICATION / CLINICAL INFORMATION: Tube Placement. COMPARISON: None available. FINDINGS: TUBES / LINES: Esophagogastric tube tip and side-port are in the proximal stomach. BOWEL GAS PATTERN: No significant abnormality. FREE AIR / EXTRALUMINAL GAS: None seen. ADDITIONAL FINDINGS: No significant additional findings. IMPRESSION: 1. Esophagogastric tube is in satisfactory position. Signer Name: Ru Kaur MD Signed: 10/20/2021 7:00 PM Workstation Name: [id number]
[2021-10-20] MEDS: cefTRIAXone/NS 2 GM/100 ML 2 GM/100 ML BAG IV SCH (20:05)
[2021-10-20] MEDS: HEPARIN/ 0.45% NACL DRIP 25,000 UNIT/500 ML BAG IV SCH (20:11)
[2021-10-20] MEDS: OSELTAMIVIR 75 MG CAP PO SCH ×2 (20:40→21:59)
[2021-10-20] MEDS ORDERED: REMDESIVIR 100 MG in SODIUM CHLORIDE 0.9% 250ML 250 ML IV SCH (21:00)
[2021-10-20] MEDS: AZITHROMYCIN/NS 500 MG/250 ML 500 MG/250 ML BAG IV SCH (21:45)
[2021-10-20] MEDS: INSULIN GLARGINE 100 UNITS/ML SUB-Q SCH (21:58)
[2021-10-20] MEDS: SENNOSIDES ORAL LIQD 8.8 MG/5 ML ORAL LIQD FEEDTUBE SCH (22:00)
[2021-10-20] MEDS ORDERED: SENNOSIDES/DOCUSATE SODIUM 8.6/50 MG TAB FEEDTUBE SCH (22:00)
[2021-10-21] MEDS: INSULIN LISPRO 100 UNIT/ML SUB-Q SCH ×4 (00:21→17:35)
[2021-10-21] MEDS: fentaNYL DRIP Premix 2,000 MCG/100 ML BAG IV SCH ×6 (00:31→22:54)
[2021-10-21 02:31] LABS: Mean Corpuscular HGB Conc 31 % (32-34); Mean Corpuscular Volume 83 fl (84-94); Platelet Count 353 K/mm3 (140-440); Red Cell Distribution Width 16.4 % (13.2-15.2)
[2021-10-21 02:32] LABS: Hematocrit 40.4 % (35.5-45.6); Hemoglobin 12.4 gm/dl (11.8-15.2)
[2021-10-21] MEDS: BENZONATATE 100 MG CAP PO SCH (05:11)
[2021-10-21 05:21] LABS: C-Reactive Protein 21.1 mg/dL (0.00-1.30)
--- NOTE | 2021-10-21 05:41 | XRay Report ---
XR chest 1V ap INDICATION / CLINICAL INFORMATION: follow up respiratory failure. COMPARISON: Radiograph from yesterday. FINDINGS: SUPPORT DEVICES: Unchanged. HEART /PULMONARY VASCULATURE: Unchanged. LUNGS / PLEURA: Diffuse bilateral pulmonary opacities are unchanged. No sizable pleural effusion. No pneumothorax. IMPRESSION: 1. Stable appearance of the chest. Signer Name: Smooth Palencia MD Signed: 10/21/2021 5:37 AM Workstation Name: [id number]
[2021-10-21 06:08] LABS: ABG HCO3 25.1 mmol/L (20.0-26.0); ABG PO2 60.2 mm Hg (80.0-90.0)
[2021-10-21 06:09] LABS: ABG Base Excess -4.3 mmol/L (-2.0-3.0); ABG Methemoglobin 0.6 % (0.0-1.5); ABG Oxygen Saturation 86.6 % (95.0-99.0)
[2021-10-21 06:13] LABS: ABG PH 7.184 pH Units (7.350-7.450)
[2021-10-21 06:58] LABS: Albumin 3.3 g/dL (3.9-5); Calcium 8.3 mg/dL (8.4-10.2)
[2021-10-21] MEDS ORDERED: SODIUM BICARB 8.4% 50 MEQ/50 ML SYRINGE IV SCH (09:00)
[2021-10-21] MEDS ORDERED: CALCIUM GLUCONATE 1,000 MG in SODIUM CHLORIDE 0.9% 100 ML IV SCH (09:00)
[2021-10-21] MEDS ORDERED: INSULIN REGULAR, HUMAN 100 UNITS/1 ML IV SCH (09:00)
[2021-10-21] MEDS ORDERED: SODIUM POLYSTYRENE 15 GM/60 ML ORAL LIQD PO SCH (09:00)
--- NOTE | 2021-10-21 09:10 | Consultation ---
History of Present Illness - History of Present Illness Thank you for the consultation Patient was evaluated today My assessment and plan are as follows #Acute kidney injury, patient's creatinine has risen from 0.8-2.3 in the last 3 days, current potassium is around 7.0, has been given treatment for hyperkalemia, Urinalysis shows 100 mg protein in the urine in the setting of acute kidney injury no red blood cells, Quite likely etiology of renal failure appears to be resulting from Covid 19 infection, hypoxemia respiratory failure, Patient will need renal placement therapy given the severity of renal failure and rapidly evolving hyperkalemia, Currently intubated to follow-up on serial ABGs, also recommend serial lactic acid level as well #Positive for Covid 19 infection, with a severe respiratory failure current ABG pH is 7.1 which earlier was 7.28 and at that time PO2 was 57 only #Pulmonary embolism in the setting of Covid 19 infection and respiratory failure #Metabolic acidosis appears to have improved current carbon dioxide is 23, check lactic acid level, #Diabetes mellitus type 2, hemoglobin A1c is 7.9 #Continue with supportive care obtain renal imaging, renal labs, patient will need initiation of renal replacement therapy, will need immediate Vas-Cath placement, Overall prognosis appears to be guarded to poor given the complexity of health issues, especially with pulmonary embolism severe respiratory failure evolving hyperkalemia and multiorgan failure-like picture patient will need stat Vas-Cath placement as well as initiation of renal replacement therapy, discussed with the Desi for immediate Vas-Cath placement, I tried to contact mother but the phone comes busy stat dialysis orders will be placed renal care plan was discussed with patient's mother over the phone, she is in agreement for proceeding with renal replacement therapy Remotely possibility of during dialysis was also explained to the patient's mother I have also given her my contact information to reach out to me if she has any question Author: Hood Delcid M.D. [facility], [address] [place] [address] Tel; [phone] Source of information: From current chart patient unable to provide any history History of present illness 26-year-old male who has been admitted here with Covid 19 infection respiratory failure, evolving renal failure with a moderately severe hyperkalemia potassium is currently 7.0, patient has also been diagnosed with pulmonary embolism, currently doing poorly, Events of this hospitalization were noted Past medical history: Current allergies: Reviewed from the current chart Social history: Reviewed from the current chart Family history: Reviewed from the current chart Review of system: unable to obtain due to intubated status Physical examination Vitals: Reviewed General: No acute distress HEENT: intubated Neck: Supple without any JVD thyromegaly or nodular mass Chest:bilateral coarse crackles Heart: Regular rate and rhythm S1-S2 heard no S3-S4 Abdomen: Soft nontender, bowel sounds present no renal bruit no suprapubic masses no CVA tenderness noted Extremity: Minimal edema dry skin no peripheral cyanosis Endocrine: Thyroid not enlarged Psychiatric: No agitation and aggression noted Musculoskeletal: No joint effusion noted Labs and x-rays: Reviewed from this admission Past History Past Medical History: diabetes Past Surgical History: Other (unknown) Social history: Medications and Allergies Allergies Allergy/AdvReac Type Severity Reaction Status Date / Time No Known Allergies Allergy Unverified 10/18/21 16:14 Home Medications Medication Instructions Recorded Confirmed Last Taken Type metFORMIN [Glucophage] 500 mg PO BID 10/20/21 10/20/21 Unknown History Active Meds: Active Medications Acetaminophen (Acetaminophen 325 Mg/10.15 Ml Oral Liqd Unit Dose) 650 mg FEEDTUBE Q6H PRN PRN Reason: Pain MILD(1-3)/Fever >100.5/HUSSEIN Al Hydrox/Mg Hydrox/Simethicone (Alum-Mag Hydroxide-Simethicone [phone]/5ml Oral Liqd 30 Ml) 30 ml PO Q4H PRN PRN Reason: Indigestion Lipase/Protease/Amylase (Lipase 10,500/Protease 25,000/Amylase 43,750 (Units) Dr Johnson) 1 each FEEDTUBE PRN PRN PRN Reason: For Clogged Feeding Tube Bisacodyl (Bisacodyl 10 Mg Rect Supp) 10 mg HI QDAY PRN PRN Reason: constipation unrelieved by MOM Dexamethasone (Dexamethasone 4 Mg/Ml Vial) 8 mg IV BID [facility] Stop: 10/28/21 10:01 Last Admin: 10/20/21 21:59 Dose: 8 mg Documented by: Dextrose (Dextrose 50% In Water (25gm) 50 Ml Syringe) 50 ml IV Q30MIN PRN; Protocol PRN Reason: Hypoglycemia Famotidine (Famotidine 20 Mg/2 Ml Inj) 10 mg IV BID [facility] Fentanyl (Fentanyl 100 Mcg/2 Ml Inj) 50 mcg IV Q10MIN PRN PRN Reason: ANALGESIA Heparin Sodium (Porcine) (Heparin 10,000 Units/10 Ml Vial) 5,000 unit IV Q6H PRN PRN Reason: Anti-Xa Assay < 0.1 units/ml Hydrophilic Ointment (Lip Therapy Vaseline) 1 applic TP Q2HR PRN PRN Reason: Dry Lips Ceftriaxone Sodium (Rocephin/Ns 2 Gm/100 Ml) 2 gm in 100 mls @ 200 mls/hr IV Q24H [facility] Stop: 10/22/21 20:29 Last Admin: 10/20/21 20:05 Dose: 200 mls/hr Documented by: Azithromycin (Zithromax/Ns) 500 mg in 250 mls @ 250 mls/hr IV Q24H [facility] Stop: 10/22/21 21:59 Last Admin: 10/20/21 21:45 Dose: 250 mls/hr Documented by: REMDESIVIR 100 mg/ Sodium (Chloride) 250 mls @ 500 mls/hr IV Q24HR@2100 [facility] Stop: 10/23/21 21:29 Last Admin: 10/20/21 21:44 Dose: 500 mls/hr Documented by: Heparin Sodium/Sodium Chloride (Heparin/ 0.45% Nacl-25,000 Unit/500 Ml) 25,000 unit in 500 mls @ 30 mls/hr IV TITR [facility]; Protocol Last Titration: 10/21/21 05:05 Dose: 1,200 units/hr, 24 mls/hr Documented by: Midazolam HCl 100 mg/ Sodium (Chloride) 100 mls @ 2 mls/hr IV TITR [facility]; Protocol Last Admin: 10/20/21 14:30 Dose: 2 mg/hr, 2 mls/hr Documented by: Fentanyl Citrate (Fentanyl Drip Premix) 2,000 mcg in 100 mls @ 7.938 mls/hr IV TITR [facility]; Protocol Last Admin: 10/21/21 05:09 Dose: 3 mcg/kg/hr, 23.814 mls/hr Documented by: Propofol (Diprivan 10 Mg/Ml) 1,000 mg in 100 mls @ 4.763 mls/hr IV TITR [facility]; Protocol Last Admin: 10/21/21 05:10 Dose: 15 mcg/kg/min, 14.288 mls/hr Documented by: Sodium Chloride (Nacl 0.9% 500 Ml) 1,000 mls @ 1 mls/hr IV DIRECT PRN PRN Reason: ARTERIAL LINE FLUSH Calcium Gluconate 1,000 mg/ (Sodium Chloride) 110 mls @ 660 mls/hr IV ONCE@0900 [facility] Stop: 10/21/21 10:00 Insulin Glargine (Insulin Glargine 100 Units/Ml) 10 units SUB-Q QHS [facility] Last Admin: 10/20/21 21:58 Dose: 10 units Documented by: Insulin Human Lispro (Insulin Lispro 100 Unit/Ml) 0 unit SUB-Q Q6HR [facility]; Protocol Last Admin: 10/21/21 05:10 Dose: 3 unit Documented by: Insulin Human Regular (Insulin Regular, Human 100 Units/1 Ml) 10 units IV ONCE@0900 [facility] Stop: 10/21/21 10:00 Midazolam HCl (Midazolam 2 Mg/2 Ml Inj) 2 mg IV Q10MIN PRN PRN Reason: Sedation Last Admin: 10/20/21 14:25 Dose: 2 mg Documented by: Multi-Ingred Cream/Lotion/Oil/Oint (Mineral Oil/Petrolatum, White Ophth Oint 3.5 Gm) 1 applic OU Q4HR PRN PRN Reason: Dry Eye(s) Ondansetron HCl (Ondansetron 4 Mg/2 Ml Inj) 4 mg IV Q8H PRN PRN Reason: Nausea And Vomiting Oseltamivir Phosphate (Oseltamivir 75 Mg Cap) 75 mg PO BID [facility] Stop: 10/23/21 22:01 Last Admin: 10/20/21 21:59 Dose: 75 mg Documented by: Promethazine HCl (Promethazine 25 Mg Tab) 25 mg PO Q6H PRN PRN Reason: Nausea And Vomiting Last Admin: 10/20/21 05:06 Dose: 25 mg Documented by: Senna (Sennosides Oral Liqd 8.8 Mg/5 Ml Oral Liqd) 8.8 mg FEEDTUBE BID [facility] Last Admin: 10/20/21 22:00 Dose: 8.8 mg Documented by: Simple Syrup (Simple Syrup 15 Ml) 15 ml FEEDTUBE PRN PRN PRN Reason: Hypoglycemia Simple Syrup (Simple Syrup 15 Ml) 30 ml FEEDTUBE PRN PRN PRN Reason: Hypoglycemia Sodium Bicarbonate (Sodium Bicarbonate 325 Mg Tab) 325 mg FEEDTUBE PRN PRN PRN Reason: For Clogged Feeding Tube Sodium Bicarbonate (Sodium Bicarb 8.4% 50 Meq/50 Ml Syringe) 50 meq IV ONCE@0900 [facility] Stop: 10/21/21 10:00 Sodium Chloride (Sodium Chloride 0.9% 10 Ml Flush Syringe) 10 ml IV BID [facility] Last Admin: 10/20/21 22:01 Dose: 10 ml Documented by: Sodium Chloride (Sodium Chloride 0.9% 10 Ml Flush Syringe) 10 ml IV PRN PRN PRN Reason: flush prior to & after IV med Sodium Chloride (Sodium Chloride 0.9% 50 Ml Ivpb) 50 ml IV Q24HR@2100 [facility] Stop: 10/23/21 21:01 Last Admin: 10/20/21 21:44 Dose: 50 ml Documented by: Sodium Polystyrene Sulfonate (Sodium Polystyrene 15 Gm/60 Ml Oral Liqd) 60 gm PO ONCE@0900 [facility] Stop: 10/21/21 10:00 Exam - Vital Signs Vital signs: Vital Signs Pulse Resp BP Pulse Ox 101 H 32 H 124/70 95 10/18/21 16:15 10/18/21 16:15 10/18/21 16:15 10/18/21 16:15 Results - Lab Results 10/21/21 02:16 10/21/21 12:00 Most recent lab results ABG pH 7.184 pH Units (7.350-7.450) L* 10/21/21 04:40 ABG pCO2 68.0 mm Hg 10/21/21 04:40 ABG pO2 60.2 mm Hg (80.0-90.0) L 10/21/21 04:40 ABG HCO3 25.1 mmol/L (20.0-26.0) 10/21/21 04:40 ABG O2 Saturation 86.6 % (95.0-99.0) L 10/21/21 04:40 Calcium 8.3 mg/dL (8.4-10.2) L 10/21/21 03:30 Phosphorus 10.40 mg/dL (2.5-4.5) H 10/21/21 02:16 Magnesium 3.00 mg/dL (1.7-2.3) H 10/21/21 02:16
[2021-10-21] MEDS ORDERED: SODIUM CHLORIDE 0.9% 100 ML IV PRN (09:19)
[2021-10-21] MEDS: dexAMETHasone 4 MG/ML VIAL IV SCH ×2 (09:22→20:29)
[2021-10-21] MEDS: FAMOTIDINE 20 MG/2 ML INJ IV SCH ×2 (09:22→20:30)
[2021-10-21] MEDS: SENNOSIDES ORAL LIQD 8.8 MG/5 ML ORAL LIQD FEEDTUBE SCH ×2 (09:23→21:11)
[2021-10-21] MEDS ORDERED: SIMPLE SYRUP 15 ML FEEDTUBE PRN ×2 (10:53)
[2021-10-21] MEDS ORDERED: LIPASE 10,500/PROTEASE 25,000/AMYLASE 43,750 (UNITS) DR CAP FEEDTUBE PRN (10:53)
[2021-10-21] MEDS ORDERED: SODIUM BICARBONATE 325 MG TAB FEEDTUBE PRN (10:53)
--- NOTE | 2021-10-21 12:13 | Progress Note ---
<JANNACANDACE YenKelly - Last Filed: 10/21/21 16:19> Assessment and Plan Assessment and plan: This is a 26-year-old male with HTN, DM, asthma and gout admitted with COVID-19 pneumonia and pulmonary embolism. Neuro: Self-reported anxiety -S/p Precedex drip and Ativan as needed -Currently sedated on propofol, fentanyl and Versed -RASS goal -2 to 3 -Bilateral soft restraints in place for safety -Avoid delirium -Maintain sleep-wake cycle Cardio: Cardiomegaly on cxr, h/o HTN -CTA chest showed mild cardiomegaly without evidence of right heart strain -Hold home antihypertensive regimen -Blood pressure monitoring per protocol -[place] placed -Echo pending Respiratory: Acute hypoxic respiratory failure, h/o asthma -S/p BiPAP and OptiFlow/nonrebreather -CCM consulted, appreciate recommendations -Intubated on 10/20 with 8.00 ETT at 24 cm at the right lip -VAP bundle -CXR and ABG noted -AM vent settings: Assist control rate 26, tidal volume 450, PEEP 18 FiO2 100% -See RT notes for titration -CCM increased TV to 500 and Rate to 18 -Daily CXR and ABGs GI: Morbid obesity, hepatic steatosis, transaminitis -CTA chest showed hepatic steatosis -Nutrition consult for tube feeding -BR: Senokot -PPI -24-hour +670 mL -Acute hepatitis panel negative : Rhabdomyolysis, Severe hyperkalemia, Acute renal injury -Cr/BUN 0.8/20 and today 2.3/43 -nephrology consulted, appreciate recommendations -renal US in progress -Urine lytes pending -Medically treat K 7 -awaiting PM BMP -HD to be initiated today -HD per nephrology -Strict intake and output with Scott catheter -Intervene with electrolytes as needed -S/p IV fluids for 24 hours -Trend BMP ID: COVID-19 pneumonia and influenza -CTA chest showed bilateral lung infiltrates concerning for atypical pneumonia -Infectious disease consulted, appreciate recommendations -Droplet/isolation precautions -IV dexamethasone for 10 days () -Twice daily dosing for morbid obesity -S/p Actemra 10/20/2021 -Tamiflu for 5 days () -Procal 0.49 -Antibiotic therapy: Azithromycin (), Rocephin (10/19 -10/23) -IV remdesivir () -jessenia will be dc by ID but will await ID input -Trend COVID-19 inflammatory markers -Anticoagulation for pulmonary embolism Endo: Hyperglycemia, h/o DM -SSI -Accu-Cheks every 6 -Avoid hypoglycemia -Hemoglobin A1c 7.9 Heme: Pulmonary embolism -CTA chest showed pulmonary embolus without evidence of right heart strain -Systemic anticoagulation with heparin drip -Bilateral lower extremity SCDs while in bed -Trend CBC -Transfuse for hemoglobin less than 7 The high probability of a clinically significant, sudden or life threatening deterioration of the [multi] system(s) required my full and direct attention, intervention and personal management. The aggregate critical care time was [90] minutes. This time is in addition to time spent performing reported procedures but includes the following: [x] Data Review and interpretation [x] Patient assessment and monitoring of vital signs [x] Documentation [x] Medication orders and management Disposition Plan: icu Total Time Spent with Patient (Minutes): 90 History Interval history: This is a 26-year-old male with HTN, DM, asthma and gout who presented to the emergency department on 10/18 with complaints of increasing shortness of breath over the past 3 days and states that he was diagnosed with Covid and flu couple days ago. Patient was given Zithromax and steroids outpatient however his anxiety and shortness of breath increased over the past 3 days prompting a visit to the emergency department. In the emergency department patient's oxygen saturations were 90% on nonrebreather and CT chest showed bilateral pulmonary embolism. Of note he is not vaccinated against COVID-19. Patient was admitted to the hospitalist service with consults to infectious disease. 10/19: Patient is currently anxious and restless with moderate respiratory distress. He is hypoxic and needing nasal cannula to and NRB alternately. BP and pulse stable. Patient has dry cough. Afebrile. No acute GI symptoms currently. 10/20: Patient was a code met from the floor to ICU. Patient was initially placed on BiPAP however due to his anxiety he was unable to tolerate and ultimately was intubated. Patient is currently sedated on fentanyl and Versed. Central line and Scott catheter placed today. Bilateral respirations in place. Family updated at bedside 10/21: BUN/Cr increase noted and nephro consulted. Nephro will like to start HD. Femoral vascath placement delayed d/t elevated aPTT and renal US. CCM made changes to vent. Hyperkalemia medically treated. and mother updated at bedside by [employer]. Marko and noemí placed. HD RN aware Hospitalist Physical - Constitutional Vitals: Temp Pulse Resp BP Pulse Ox 99.5 F 77 19 164/61 97 10/21/21 11:44 10/21/21 11:45 10/21/21 11:45 10/21/21 11:45 10/21/21 11:45 General appearance: Present: no acute distress, well-nourished, obese (Morbid obese with BMI 47), other (sedated) - EENT Eyes: Present: PERRL, EOM intact ENT: clear oral mucosa, dentition normal - Neck Neck: Present: normal ROM - Respiratory Respiratory effort: normal Respiratory: bilateral: diminished - Cardiovascular Rhythm: regular Heart Sounds: Present: S1 & S2. Absent: systolic murmur, diastolic murmur - Extremities Extremities: no ischemia, pulses intact, pulses symmetrical, No edema, normal temperature, normal color Peripheral Pulses: within normal limits - Abdominal General gastrointestinal: soft, non-tender, non-distended, normal bowel sounds - Integumentary Integumentary: Present: warm, dry - Psychiatric Psychiatric: other (sedated) - Neurologic Neurologic: CNII-XII intact, other (intact cough/gag reflex) - Allied Health Allied health notes reviewed: nursing, RT, social work HEART Score - HEART Score EKG: Normal Age: < 45 Risk factors: 1-2 risk factors Troponin: Troponin T < 0.010 ng/mL (0.00-0.029) 10/18/21 16:39 Troponin: < normal limit - Critical Actions Critical Actions: 0-3 pts:0.9-1.7%risk of adverse cardiac event.Candidate for discharge Results - Labs CBC & Chem 7: 10/21/21 02:16 10/21/21 12:00 Labs: Laboratory Last Values WBC 6.9 K/mm3 (4.5-11.0) 10/21/21 02:16 RBC 4.90 M/mm3 (3.65-5.03) 10/21/21 02:16 Hgb 12.4 gm/dl (11.8-15.2) 10/21/21 02:16 Hct 40.4 % (35.5-45.6) 10/21/21 02:16 MCV 83 fl (84-94) L 10/21/21 02:16 MCH 25 pg (28-32) L 10/21/21 02:16 MCHC 31 % (32-34) L 10/21/21 02:16 RDW 16.4 % (13.2-15.2) H 10/21/21 02:16 Plt Count 353 K/mm3 (140-440) 10/21/21 02:16 Lymph % (Auto) 4.9 % (13.4-35.0) L 10/19/21 23:52 [place] % (Auto) 5.3 % (0.0-7.3) 10/19/21 23:52 Eos % (Auto) 0.0 % (0.0-4.3) 10/19/21 23:52 Baso % (Auto) 0.1 % (0.0-1.8) 10/19/21 23:52 Lymph # (Auto) 0.5 K/mm3 (1.2-5.4) L 10/19/21 23:52 [place] # (Auto) 0.5 K/mm3 (0.0-0.8) 10/19/21 23:52 Eos # (Auto) 0.0 K/mm3 (0.0-0.4) 10/19/21 23:52 Baso # (Auto) 0.0 K/mm3 (0.0-0.1) 10/19/21 23:52 Seg Neutrophils % 89.7 % (40.0-70.0) H 10/19/21 23:52 Seg Neutrophils # 8.9 K/mm3 (1.8-7.7) H 10/19/21 23:52 PT 14.8 Sec. (12.2-14.9) 10/20/21 13:30 INR 1.05 (0.87-1.13) 10/20/21 13:30 APTT 36.1 Sec. (24.2-36.6) 10/20/21 13:30 D-Dimer 579.49 ng/mlDDU (0-234) H 10/21/21 02:16 Heparin Anti-Xa Level 1.04 U.I./ml (0.3-0.7) H 10/21/21 Unknown ABG pH 7.184 pH Units (7.350-7.450) L* 10/21/21 04:40 POC ABG pCO2 53.7 mmHg (32.0-48.0) H 10/20/21 14:40 ABG pCO2 68.0 mm Hg 10/21/21 04:40 POC ABG pO2 57.3 mmHg (83-108) L 10/20/21 14:40 ABG pO2 60.2 mm Hg (80.0-90.0) L 10/21/21 04:40 POC ABG HCO3 24.8 10/20/21 14:40 ABG HCO3 25.1 mmol/L (20.0-26.0) 10/21/21 04:40 ABG O2 Saturation 86.6 % (95.0-99.0) L 10/21/21 04:40 ABG O2 Content 14.5 (0.0-44) 10/21/21 04:40 POC ABG Base Excess -2.5 10/20/21 14:40 ABG Base Excess -4.3 mmol/L (-2.0-3.0) L 10/21/21 04:40 ABG Hemoglobin 12.1 gm/dl (14.0-18.0) L 10/21/21 04:40 ABG Oxyhemoglobin 83.6 (94-98) L 10/20/21 14:40 ABG Carboxyhemoglobin 1.1 % (0.0-5.0) 10/21/21 04:40 ABG Methemoglobin 0.6 % (0.0-1.5) 10/21/21 04:40 ABG Sodium 132.2 mmol/L (136.0-145.0) L 10/20/21 14:40 ABG Potassium 5.5 mmol/L (3.40-4.50) H 10/20/21 14:40 ABG Chloride 101.0 mmol/L (98-107) 10/20/21 14:40 ABG Glucose 255 mg/dL (65-95) H 10/20/21 14:40 Oxyhemoglobin 85.2 % (95.0-99.0) L 10/21/21 04:40 Carboxyhemoglobin 0.3 (0.5-1.5) L 10/20/21 14:40 FiO2 100 % 10/21/21 04:40 FiO2 % 100 10/20/21 14:40 Sodium 136 mmol/L (137-145) L 10/21/21 03:30 Potassium 7.0 mmol/L (3.6-5.0) H* D 10/21/21 03:30 Chloride 98.0 mmol/L (98-107) 10/21/21 03:30 Carbon Dioxide 23 mmol/L (22-30) 10/21/21 03:30 Anion Gap 22 mmol/L 10/21/21 03:30 BUN 43 mg/dL (9-20) H 10/21/21 03:30 Creatinine 2.3 mg/dL (0.8-1.3) H D 10/21/21 03:30 Estimated GFR 41 ml/min 10/21/21 03:30 BUN/Creatinine Ratio 19 % 10/21/21 03:30 Glucose 210 mg/dL (75-100) H 10/21/21 03:30 POC Glucose 184 mg/dL (70-105) H 10/21/21 11:27 Hemoglobin A1c 7.9 % (4-6) H 10/19/21 23:52 Lactic Acid 1.40 mmol/L (0.7-2.0) 10/18/21 16:39 Calcium 8.3 mg/dL (8.4-10.2) L 10/21/21 03:30 Phosphorus 10.40 mg/dL (2.5-4.5) H 10/21/21 02:16 Magnesium 3.00 mg/dL (1.7-2.3) H 10/21/21 02:16 Ferritin 1550.0 ng/mL (30.0-300.0) H 10/21/21 02:16 Total Bilirubin 0.20 mg/dL (0.1-1.2) 10/21/21 03:30 AST 206 units/L (5-40) H 10/21/21 03:30 ALT 194 units/L (7-56) H 10/21/21 03:30 Alkaline Phosphatase 76 units/L (35-129) 10/21/21 03:30 Lactate Dehydrogenase 970 units/L (91-180) H 10/21/21 02:16 Total Creatine Kinase 1484 units/L (55-170) H 10/18/21 16:39 CK-MB (CK-2) 3.3 ng/mL (0.0-4.0) 10/18/21 16:39 CK-MB (CK-2) Rel Index 0.2 (0-4) 10/18/21 16:39 Troponin T < 0.010 ng/mL (0.00-0.029) 10/18/21 16:39 C-Reactive Protein 21.10 mg/dL (0.00-1.30) H 10/21/21 02:16 Total Protein 8.2 g/dL (6.3-8.2) 10/21/21 03:30 Albumin 3.3 g/dL (3.9-5) L 10/21/21 03:30 Albumin/Globulin Ratio 0.7 % 10/21/21 03:30 Lipase 15 units/L (13-60) 10/18/21 16:39 Procalcitonin 0.49 ng/mL (<0.15) 10/19/21 23:52 Arterial Blood Glucose 255 mg/dL (65-95) H 10/20/21 14:40 Urine Color Yellow (Yellow) 10/18/21 22:26 Urine Turbidity Clear (Clear) 10/18/21 22:26 Urine pH 6.0 (5.0-7.0) 10/18/21 22:26 Ur Specific [place] 1.025 (1.003-1.030) 10/18/21 22:26 Urine Protein 100 mg/dl mg/dL (Negative) 10/18/21 22:26 Urine Glucose (UA) Neg mg/dL (Negative) 10/18/21 22:26 Urine Ketones Neg mg/dL (Negative) 10/18/21 22:26 Urine Blood Sm (Negative) 10/18/21 22:26 Urine Nitrite Neg (Negative) 10/18/21 22:26 Urine Bilirubin Neg (Negative) 10/18/21 22:26 Urine Urobilinogen < 2.0 mg/dL (<2.0) 10/18/21 22:26 Ur Leukocyte Esterase Neg (Negative) 10/18/21 22:26 Urine WBC (Auto) < 1.0 /HPF (0.0-6.0) 12/14/21 22:26 Urine RBC (Auto) < 1.0 /HPF (0.0-6.0) 10/18/21 22:26 U Epithel Cells (Auto) < 1.0 /HPF (0-13.0) 10/18/21 22:26 Urine Bacteria (Auto) 1+ /HPF (Negative) 10/18/21 22:26 Coronavirus (PCR) Positive (Negative) A 10/19/21 08:24 Hepatitis A IgM Ab Non-reactive (NonReactive) 10/19/21 23:52 Hep Bs Antigen Nonreactive (Negative) 10/19/21 23:52 Hep B Core IgM Ab Non-reactive (NonReactive) 10/19/21 23:52 Hepatitis C Antibody Non-reactive (NonReactive) 10/19/21 23:52 Microbiology: Microbiology 10/18/21 16:39 Peripheral/Venous Blood Culture - Preliminary NO GROWTH AFTER 48 HOURS 10/18/21 16:47 Peripheral/Venous Blood Culture - Preliminary NO GROWTH AFTER 48 HOURS Scott/IV: Voiding Method Indwelling Catheter Active Medications - Current Medications Current Medications: Generic Name Dose Route Start Last Admin Trade Name Freq PRN Reason Stop Dose Admin Acetaminophen 650 mg 10/20/21 13:30 Acetaminophen 325 Mg/10.15 Ml Oral Liqd Unit Dose FEEDTUBE Q6H PRN Pain MILD(1-3)/Fever >100.5/HUSSEIN Al Hydrox/Mg Hydrox/Simethicone 30 ml 10/20/21 13:30 Alum-Mag Hydroxide-Simethicone 309-146-10yl/5ml Oral Liqd 30 Ml PO Q4H PRN Indigestion Lipase/Protease/Amylase 1 each 10/20/21 15:15 Lipase 10,500/Protease 25,000/Amylase 43,750 (Units) Dr Johnson FEEDTUBE PRN PRN For Clogged Feeding Tube Bisacodyl 10 mg 10/20/21 13:30 Bisacodyl 10 Mg Rect Supp MI QDAY PRN constipation unrelieved by MOM Dexamethasone 8 mg 10/20/21 22:00 10/21/21 09:22 Dexamethasone 4 Mg/Ml Vial IV 10/28/21 10:01 8 mg BID ALBIN Administration Dextrose 50 ml 10/20/21 13:30 Dextrose 50% In Water (25gm) 50 Ml Syringe IV Q30MIN PRN Hypoglycemia Protocol Famotidine 10 mg 10/21/21 10:00 10/21/21 09:22 Famotidine 20 Mg/2 Ml Inj IV 10 mg BID ALBIN Administration Fentanyl 50 mcg 10/20/21 13:25 Fentanyl 100 Mcg/2 Ml Inj IV Q10MIN PRN ANALGESIA Heparin Sodium (Porcine) 5,000 unit 10/20/21 10:41 Heparin 10,000 Units/10 Ml Vial IV Q6H PRN Anti-Xa Assay < 0.1 units/ml Hydrophilic Ointment 1 applic 10/20/21 13:25 Lip Therapy Vaseline TP Q2HR PRN Dry Lips Ceftriaxone Sodium 2 gm in 100 mls @ 200 mls/hr 10/19/21 20:00 10/20/21 20:05 Rocephin/Ns 2 Gm/100 Ml IV 10/22/21 20:29 200 mls/hr Q24H ALBIN Administration Azithromycin 500 mg in 250 mls @ 250 mls/hr 10/19/21 21:00 10/20/21 21:45 Zithromax/Ns IV 10/22/21 21:59 250 mls/hr Q24H ALBIN Administration REMDESIVIR 100 mg/ Sodium 250 mls @ 500 mls/hr 10/20/21 21:00 10/20/21 21:44 Chloride IV 10/23/21 21:29 500 mls/hr Q24HR@2100 ALBIN Administration Heparin Sodium/Sodium Chloride 25,000 unit in 500 mls @ 30 mls/hr 10/20/21 20:00 10/21/21 05:05 Heparin/ 0.45% Nacl-25,000 Unit/500 Ml IV 1,200 units/hr TITR ALBIN 24 mls/hr Titration Protocol 1,500 UNITS/HR Midazolam HCl 100 mg/ Sodium 100 mls @ 2 mls/hr 10/20/21 14:00 10/20/21 14:30 Chloride IV 2 mg/hr TITR ALBIN 2 mls/hr Administration Protocol 2 MG/HR Fentanyl Citrate 2,000 mcg in 100 mls @ 7.938 mls/hr 10/20/21 14:00 10/21/21 09:46 Fentanyl Drip Premix IV 3 mcg/kg/hr TITR ALBIN 23.814 mls/hr Administration Protocol 1 MCG/KG/HR Propofol 1,000 mg in 100 mls @ 4.763 mls/hr 10/20/21 14:00 10/21/21 05:10 Diprivan 10 Mg/Ml IV 15 mcg/kg/min TITR ALBIN 14.288 mls/hr Administration Protocol 5 MCG/KG/MIN Sodium Chloride 1,000 mls @ 1 mls/hr 10/20/21 14:30 Nacl 0.9% 500 Ml IV DIRECT PRN ARTERIAL LINE FLUSH Sodium Chloride 100 mls @ 999 mls/hr 10/21/21 09:19 Nacl 0.9% IV MAYLIN PRN Hypotension Insulin Glargine 10 units 10/20/21 22:00 10/20/21 21:58 Insulin Glargine 100 Units/Ml SUB-Q 10 units QHS [facility] Administration Insulin Human Lispro 0 unit 10/20/21 12:00 10/21/21 05:10 Insulin Lispro 100 Unit/Ml SUB-Q 3 unit Q6HR [facility] Administration Protocol Midazolam HCl 2 mg 10/20/21 13:25 10/20/21 14:25 Midazolam 2 Mg/2 Ml Inj IV 2 mg Q10MIN PRN Administration Sedation Multi-Ingred Cream/Lotion/Oil/Oint 1 applic 10/20/21 13:25 Mineral Oil/Petrolatum, White Ophth Oint 3.5 Gm OU Q4HR PRN Dry Eye(s) Ondansetron HCl 4 mg 10/19/21 04:21 Ondansetron 4 Mg/2 Ml Inj IV Q8H PRN Nausea And Vomiting Oseltamivir Phosphate 30 mg 10/21/21 22:00 Oseltamivir Phosphate 30 Mg/5 Ml Oralsyr PO 10/23/21 22:01 Q24H [facility] Promethazine HCl 25 mg 10/19/21 04:38 10/20/21 05:06 Promethazine 25 Mg Tab PO 25 mg Q6H PRN Administration Nausea And Vomiting Senna 8.8 mg 10/20/21 22:00 10/21/21 09:23 Sennosides Oral Liqd 8.8 Mg/5 Ml Oral Liqd FEEDTUBE 8.8 mg BID ALBIN Administration Simple Syrup 15 ml 10/20/21 15:15 Simple Syrup 15 Ml FEEDTUBE PRN PRN Hypoglycemia Simple Syrup 30 ml 10/20/21 15:15 Simple Syrup 15 Ml FEEDTUBE PRN PRN Hypoglycemia Sodium Bicarbonate 325 mg 10/20/21 15:15 Sodium Bicarbonate 325 Mg Tab FEEDTUBE PRN PRN For Clogged Feeding Tube Sodium Chloride 10 ml 10/19/21 10:00 10/20/21 22:01 Sodium Chloride 0.9% 10 Ml Flush Syringe IV 10 ml BID ALBIN Administration Sodium Chloride 10 ml 10/19/21 04:26 Sodium Chloride 0.9% 10 Ml Flush Syringe IV PRN PRN flush prior to & after IV med Sodium Chloride 50 ml 10/19/21 17:00 10/20/21 21:44 Sodium Chloride 0.9% 50 Ml Ivpb IV 10/23/21 21:01 50 ml Q24HR@2100 ALBIN Administration Nutrition/Malnutrition Assess - Dietary Evaluation Nutrition/Malnutrition Findings: Nutrition Notes Start: 10/19/21 14:34 Freq: Status: Active Protocol: Document 10/21/21 10:33 REESE (Rec: 10/21/21 10:53 ARALL [id number]) Nutrition Notes Initial or Follow up Reassessment Current Diagnosis Diabetes,Hypertension, Respiratory Failure Other Pertinent Diagnosis COVID-19 pneu, hepatic steatosis, asthma, gout, pulmonary embolism Current Diet TF - Glucerna 1.2 at 108ml/hr Labs/Tests Na 136 K 7 BUN 43 Cr 2.3 BG 210 Phos 10.4 Mg 3 Pertinent Medications Decadron, Heparin gtt, Propofol at 14.288ml/hr ( provides 377 kcal), Senokot Height 6 ft Weight 158.757 kg [place] Body Weight (kg) 80.90 BMI 47.5 Weight Status Morbidly Obese Subjective/Other Information Pt remains on vent support. RN unable to locate Glucerna TF formula, so started Nepro instead. Burn Absent Trauma Absent Minimum of two criteria No #1 Nutrition Diagnosis Inadequate energy intake, Inadequate oral intake Comments: CHANGED Etiology [facility] ventilation As Evidenced by Signs and Symptoms pt NPO Diagnosis Progress(for reassessment Continues documentation) Is patient on ventilator? Yes Is Patient Ambulatory and/or Out of Bed No REE-([place]-confined to bed) [phone] Calculation Used for Recommendations 70-80% energy needs Additional Notes Pro needs 1.3g/kg adjBW: 156g/ day Fluid needs 1ml/kcal Nutrition Intervention Nutrition Support: Change TF formula to Nepro at 53ml/hr. Provide 230ml water flush q4h. Kcal 2,290 Protein (gm) 103 Carbohydrates (gm) 205 Fat (gm) 122 Fluid (mL) 925 Fiber (gm) 16 Goal #1 TF tolerance Goal #2 TF to meet nutrient needs as best possible Follow-Up By: 10/24/21 Additional Comments F/U: TF tolerance, renal function, vent status, propofol <ROUTHU,AWLLY R - Last Filed: 10/21/21 20:00> History Interval history: Attendings note: Patient seen and examined by me today. Discussed with the nursing staff and respiratory staff. Patient has been experiencing rapid deterioration since 10/21 with severe hypoxic respiratory failure, remains on ventilator, could be weaned FiO2 80% later this afternoon, required emergent hemodialysis today for CHANDLER with metabolic acidosis and hyperkalemia. Prognosis is guarded due to multiple risk factors and rapidly deteriorating hypoxic respiratory failure complicated by acute renal failure. Hospitalist Physical - Constitutional Vitals: Temp Pulse Resp BP Pulse Ox 99.6 F 84 17 111/60 95 10/21/21 17:42 10/21/21 19:50 10/21/21 17:31 10/21/21 19:50 10/21/21 17:31 HEART Score - HEART Score Troponin: Troponin T < 0.010 ng/mL (0.00-0.029) 10/18/21 16:39 Results - Labs CBC & Chem 7: 10/21/21 02:16 10/21/21 12:00 Labs: Laboratory Last Values WBC 6.9 K/mm3 (4.5-11.0) 10/21/21 02:16 RBC 4.90 M/mm3 (3.65-5.03) 10/21/21 02:16 Hgb 12.4 gm/dl (11.8-15.2) 10/21/21 02:16 Hct 40.4 % (35.5-45.6) 10/21/21 02:16 MCV 83 fl (84-94) L 10/21/21 02:16 MCH 25 pg (28-32) L 10/21/21 02:16 MCHC 31 % (32-34) L 10/21/21 02:16 RDW 16.4 % (13.2-15.2) H 10/21/21 02:16 Plt Count 353 K/mm3 (140-440) 10/21/21 02:16 Lymph % (Auto) 4.9 % (13.4-35.0) L 10/19/21 23:52 [place] % (Auto) 5.3 % (0.0-7.3) 10/19/21 23:52 Eos % (Auto) 0.0 % (0.0-4.3) 10/19/21 23:52 Baso % (Auto) 0.1 % (0.0-1.8) 10/19/21 23:52 Lymph # (Auto) 0.5 K/mm3 (1.2-5.4) L 10/19/21 23:52 [place] # (Auto) 0.5 K/mm3 (0.0-0.8) 10/19/21 23:52 Eos # (Auto) 0.0 K/mm3 (0.0-0.4) 10/19/21 23:52 Baso # (Auto) 0.0 K/mm3 (0.0-0.1) 10/19/21 23:52 Seg Neutrophils % 89.7 % (40.0-70.0) H 10/19/21 23:52 Seg Neutrophils # 8.9 K/mm3 (1.8-7.7) H 10/19/21 23:52 PT 14.8 Sec. (12.2-14.9) 10/20/21 13:30 INR 1.05 (0.87-1.13) 10/20/21 13:30 APTT 36.1 Sec. (24.2-36.6) 10/20/21 13:30 D-Dimer 579.49 ng/mlDDU (0-234) H 10/21/21 02:16 Heparin Anti-Xa Level 1.04 U.I./ml (0.3-0.7) H 10/21/21 Unknown ABG pH 7.183 pH Units (7.350-7.450) L* 10/21/21 12:39 POC ABG pCO2 69.9 mmHg (32.0-48.0) H 10/21/21 09:34 ABG pCO2 71.3 mm Hg 10/21/21 12:39 POC ABG pO2 65.6 mmHg (83-108) L 10/21/21 09:34 ABG pO2 82.0 mm Hg (80.0-90.0) 10/21/21 12:39 POC ABG HCO3 24.5 10/21/21 09:34 ABG HCO3 26.2 mmol/L (20.0-26.0) H 10/21/21 12:39 ABG O2 Saturation 94.6 % (95.0-99.0) L 10/21/21 12:39 ABG O2 Content 17.1 (0.0-44) 10/21/21 12:39 POC ABG Base Excess -5.4 10/21/21 09:34 ABG Base Excess -3.6 mmol/L (-2.0-3.0) L 10/21/21 12:39 ABG Hemoglobin 13.1 gm/dl (14.0-18.0) L 10/21/21 12:39 ABG Oxyhemoglobin 89.7 (94-98) L 10/21/21 09:34 ABG Carboxyhemoglobin 1.2 % (0.0-5.0) 10/21/21 12:39 ABG Methemoglobin 0.6 % (0.0-1.5) 10/21/21 12:39 ABG Sodium 138.1 mmol/L (136.0-145.0) 10/21/21 09:34 ABG Potassium 6.5 mmol/L (3.40-4.50) H 10/21/21 09:34 ABG Chloride 102.0 mmol/L (98-107) 10/21/21 09:34 ABG Glucose 190 mg/dL (65-95) H 10/21/21 09:34 Oxyhemoglobin 93.0 % (95.0-99.0) L 10/21/21 12:39 Carboxyhemoglobin 0.4 (0.5-1.5) L 10/21/21 09:34 FiO2 100 % 10/21/21 12:39 FiO2 % 100.0 10/21/21 09:34 Sodium 141 mmol/L (137-145) 10/21/21 12:00 Potassium 6.7 mmol/L (3.6-5.0) H* 10/21/21 12:00 Chloride 100.0 mmol/L (98-107) 10/21/21 12:00 Carbon Dioxide 22 mmol/L (22-30) 10/21/21 12:00 Anion Gap 26 mmol/L 10/21/21 12:00 BUN 54 mg/dL (9-20) H 10/21/21 12:00 Creatinine 2.8 mg/dL (0.8-1.3) H 10/21/21 12:00 Estimated GFR 33 ml/min 10/21/21 12:00 BUN/Creatinine Ratio 19 % 10/21/21 12:00 Glucose 190 mg/dL (75-100) H 10/21/21 12:00 POC Glucose 208 mg/dL (70-105) H 10/21/21 16:20 Hemoglobin A1c 7.9 % (4-6) H 10/19/21 23:52 Lactic Acid 1.40 mmol/L (0.7-2.0) 10/18/21 16:39 Calcium 8.0 mg/dL (8.4-10.2) L 10/21/21 12:00 Phosphorus 10.40 mg/dL (2.5-4.5) H 10/21/21 02:16 Magnesium 3.00 mg/dL (1.7-2.3) H 10/21/21 02:16 Ferritin 1550.0 ng/mL (30.0-300.0) H 10/21/21 02:16 Total Bilirubin 0.20 mg/dL (0.1-1.2) 10/21/21 03:30 AST 206 units/L (5-40) H 10/21/21 03:30 ALT 194 units/L (7-56) H 10/21/21 03:30 Alkaline Phosphatase 76 units/L (35-129) 10/21/21 03:30 Lactate Dehydrogenase 970 units/L (91-180) H 10/21/21 02:16 Total Creatine Kinase 1484 units/L (55-170) H 10/18/21 16:39 CK-MB (CK-2) 3.3 ng/mL (0.0-4.0) 10/18/21 16:39 CK-MB (CK-2) Rel Index 0.2 (0-4) 10/18/21 16:39 Troponin T < 0.010 ng/mL (0.00-0.029) 10/18/21 16:39 C-Reactive Protein 21.10 mg/dL (0.00-1.30) H 10/21/21 02:16 Total Protein 8.2 g/dL (6.3-8.2) 10/21/21 03:30 Albumin 3.3 g/dL (3.9-5) L 10/21/21 03:30 Albumin/Globulin Ratio 0.7 % 10/21/21 03:30 Lipase 15 units/L (13-60) 10/18/21 16:39 Procalcitonin 0.49 ng/mL (<0.15) 10/19/21 23:52 Arterial Blood Glucose 190 mg/dL (65-95) H 10/21/21 09:34 Arterial Blood Ionized Calcium 4.2 mg/dL (4.6-5.3) L 10/21/21 09:34 Urine Color Yellow (Yellow) 10/18/21 22:26 Urine Turbidity Clear (Clear) 10/18/21 22:26 Urine pH 6.0 (5.0-7.0) 10/18/21 22:26 Ur Specific [place] 1.025 (1.003-1.030) 10/18/21 22:26 Urine Protein 100 mg/dl mg/dL (Negative) 10/18/21 22:26 Urine Glucose (UA) Neg mg/dL (Negative) 10/18/21 22: Urine Ketones Neg mg/dL (Negative) 10/18/21 22:26 Urine Blood Sm (Negative) 10/18/21 22:26 Urine Nitrite Neg (Negative) 10/18/21 22:26 Urine Bilirubin Neg (Negative) 10/18/21 22: Urine Urobilinogen < 2.0 mg/dL (<2.0) 10/18/21 22:26 Ur Leukocyte Esterase Neg (Negative) 10/18/21 22:26 Urine WBC (Auto) < 1.0 /HPF (0.0-6.0) 10/18/21 22: Urine RBC (Auto) < 1.0 /HPF (0.0-6.0) 10/18/21 22: U Epithel Cells (Auto) < 1.0 /HPF (0-13.0) 10/18/21 22: Urine Bacteria (Auto) 1+ /HPF (Negative) 10/18/21 22: Urine Creatinine 153.1 mg/dL (0.1-20.0) H 10/21/21 Unknown Urine Sodium 31 mmol/L 10/21/21 Unknown Urine Total Protein 173 mg/dL (5-11.8) H 10/21/21 Unknown Coronavirus (PCR) Positive (Negative) A 10/19/21 08:24 Hepatitis A IgM Ab Non-reactive (NonReactive) 10/19/21 23:52 Hep Bs Antigen Nonreactive (Negative) 10/19/21 23:52 Hep B Core IgM Ab Non-reactive (NonReactive) 10/19/21 23:52 Hepatitis C Antibody Non-reactive (NonReactive) 10/19/21 23:52 Microbiology: Microbiology 10/18/21 16:39 Peripheral/Venous Blood Culture - Preliminary NO GROWTH AFTER 72 HOURS 10/18/21 16:47 Peripheral/Venous Blood Culture - Preliminary NO GROWTH AFTER 72 HOURS 10/20/21 14:50 Tracheal Aspirate Sputum Culture - Preliminary Scott/IV: Voiding Method Indwelling Catheter Active Medications - Current Medications Current Medications: Generic Name Dose Route Start Last Admin Trade Name Freq PRN Reason Stop Dose Admin Acetaminophen 650 mg 10/20/21 13:30 Acetaminophen 325 Mg/10.15 Ml Oral Liqd Unit Dose FEEDTUBE Q6H PRN Pain MILD(1-3)/Fever >100.5/HUSSEIN Al Hydrox/Mg Hydrox/Simethicone 30 ml 10/20/21 13:30 Alum-Mag Hydroxide-Simethicone 107-164-38wz/5ml Oral Liqd 30 Ml PO Q4H PRN Indigestion Lipase/Protease/Amylase 1 each 10/20/21 15:15 Lipase 10,500/Protease 25,000/Amylase 43,750 (Units) Dr Johnson FEEDTUBE PRN PRN For Clogged Feeding Tube Bisacodyl 10 mg 10/20/21 13:30 Bisacodyl 10 Mg Rect Supp MI QDAY PRN constipation unrelieved by MOM Dexamethasone 8 mg 10/20/21 22:00 10/21/21 09:22 Dexamethasone 4 Mg/Ml Vial IV 10/28/21 10:01 8 mg BID ALBIN Administration Dextrose 50 ml 10/20/21 13:30 Dextrose 50% In Water (25gm) 50 Ml Syringe IV Q30MIN PRN Hypoglycemia Protocol Famotidine 10 mg 10/21/21 10:00 10/21/21 09:22 Famotidine 20 Mg/2 Ml Inj IV 10 mg BID ALBIN Administration Fentanyl 50 mcg 10/20/21 13:25 Fentanyl 100 Mcg/2 Ml Inj IV Q10MIN PRN ANALGESIA Heparin Sodium (Porcine) 5,000 unit 10/20/21 10:41 10/21/21 17:19 Heparin 10,000 Units/10 Ml Vial IV 5,000 unit Q6H PRN Administration Anti-Xa Assay < 0.1 units/ml Hydrophilic Ointment 1 applic 10/20/21 13:25 Lip Therapy Vaseline TP Q2HR PRN Dry Lips Ceftriaxone Sodium 2 gm in 100 mls @ 200 mls/hr 10/19/21 20:00 10/20/21 20:05 Rocephin/Ns 2 Gm/100 Ml IV 10/22/21 20:29 200 mls/hr Q24H ALBIN Administration Azithromycin 500 mg in 250 mls @ 250 mls/hr 10/19/21 21:00 10/20/21 21:45 Zithromax/Ns IV 10/22/21 21:59 250 mls/hr Q24H ALBIN Administration Heparin Sodium/Sodium Chloride 25,000 unit in 500 mls @ 30 mls/hr 10/20/21 20:00 10/21/21 14:30 Heparin/ 0.45% Nacl-25,000 Unit/500 Ml IV 900 units/hr TITR ALBIN 18 mls/hr Titration Protocol 1,500 UNITS/HR Midazolam HCl 100 mg/ Sodium 100 mls @ 2 mls/hr 10/20/21 14:00 10/20/21 14:30 Chloride IV 2 mg/hr TITR ALBIN 2 mls/hr Administration Protocol 2 MG/HR Fentanyl Citrate 2,000 mcg in 100 mls @ 7.938 mls/hr 10/20/21 14:00 10/21/21 18:50 Fentanyl Drip Premix IV 3 mcg/kg/hr TITR ALBIN 23.814 mls/hr Administration Protocol 1 MCG/KG/HR Propofol 1,000 mg in 100 mls @ 4.763 mls/hr 10/20/21 14:00 10/21/21 12:48 Diprivan 10 Mg/Ml IV 15 mcg/kg/min TITR ALBIN 14.288 mls/hr Administration Protocol 5 MCG/KG/MIN Sodium Chloride 1,000 mls @ 1 mls/hr 10/20/21 14:30 Nacl 0.9% 500 Ml IV DIRECT PRN ARTERIAL LINE FLUSH Sodium Chloride 100 mls @ 999 mls/hr 10/21/21 09:19 Nacl 0.9% IV MAYLIN PRN Hypotension Insulin Glargine 10 units 10/20/21 22:00 10/20/21 21:58 Insulin Glargine 100 Units/Ml SUB-Q 10 units QHS ALBIN Administration Insulin Human Lispro 0 unit 10/20/21 12:00 10/21/21 17:35 Insulin Lispro 100 Unit/Ml SUB-Q 3 unit Q6HR ALBIN Administration Protocol Midazolam HCl 2 mg 10/20/21 13:25 10/20/21 14:25 Midazolam 2 Mg/2 Ml Inj IV 2 mg Q10MIN PRN Administration Sedation Multi-Ingred Cream/Lotion/Oil/Oint 1 applic 10/20/21 13:25 Mineral Oil/Petrolatum, White Ophth Oint 3.5 Gm OU Q4HR PRN Dry Eye(s) Ondansetron HCl 4 mg 10/19/21 04:21 Ondansetron 4 Mg/2 Ml Inj IV Q8H PRN Nausea And Vomiting Oseltamivir Phosphate 30 mg 10/21/21 22:00 Oseltamivir Phosphate 30 Mg Cap PO 10/23/21 22:01 Q24H [facility] Promethazine HCl 25 mg 10/19/21 04:38 10/20/21 05:06 Promethazine 25 Mg Tab PO 25 mg Q6H PRN Administration Nausea And Vomiting Senna 8.8 mg 10/20/21 22:00 10/21/21 09:23 Sennosides Oral Liqd 8.8 Mg/5 Ml Oral Liqd FEEDTUBE 8.8 mg BID ALBIN Administration Simple Syrup 15 ml 10/20/21 15:15 Simple Syrup 15 Ml FEEDTUBE PRN PRN Hypoglycemia Simple Syrup 30 ml 10/20/21 15:15 Simple Syrup 15 Ml FEEDTUBE PRN PRN Hypoglycemia Sodium Bicarbonate 325 mg 10/20/21 15:15 Sodium Bicarbonate 325 Mg Tab FEEDTUBE PRN PRN For Clogged Feeding Tube Sodium Chloride 10 ml 10/19/21 10:00 10/21/21 10:30 Sodium Chloride 0.9% 10 Ml Flush Syringe IV 10 ml BID ALBIN Administration Sodium Chloride 10 ml 10/19/21 04:26 Sodium Chloride 0.9% 10 Ml Flush Syringe IV PRN PRN flush prior to & after IV med Nutrition/Malnutrition Assess - Dietary Evaluation Nutrition/Malnutrition Findings: Nutrition Notes Start: 10/19/21 14:34 Freq: Status: Active Protocol: Document 10/21/21 10:33 REESE (Rec: 10/21/21 10:53 NHALL [id number]) Nutrition Notes Initial or Follow up Reassessment Current Diagnosis Diabetes,Hypertension, Respiratory Failure Other Pertinent Diagnosis COVID-19 pneu, hepatic steatosis, asthma, gout, pulmonary embolism Current Diet TF - Glucerna 1.2 at 108ml/hr Labs/Tests Na 136 K 7 BUN 43 Cr 2.3 BG 210 Phos 10.4 Mg 3 Pertinent Medications Decadron, Heparin gtt, Propofol at 14.288ml/hr ( provides 377 kcal), Senokot Height 6 ft Weight 158.757 kg [place] Body Weight (kg) 80.90 BMI 47.5 Weight Status Morbidly Obese Subjective/Other Information Pt remains on vent support. RN unable to locate Glucerna TF formula, so started Nepro instead. Burn Absent Trauma Absent Minimum of two criteria No #1 Nutrition Diagnosis Inadequate energy intake, Inadequate oral intake Comments: CHANGED Etiology [facility] ventilation As Evidenced by Signs and Symptoms pt NPO Diagnosis Progress(for reassessment Continues documentation) Is patient on ventilator? Yes Is Patient Ambulatory and/or Out of Bed No REE-([facility]-confined to bed) [phone] Calculation Used for Recommendations 70-80% energy needs Additional Notes Pro needs 1.3g/kg adjBW: 156g/ day Fluid needs 1ml/kcal Nutrition Intervention Nutrition Support: Change TF formula to Nepro at 53ml/hr. Provide 230ml water flush q4h. Kcal 2,290 Protein (gm) 103 Carbohydrates (gm) 205 Fat (gm) 122 Fluid (mL) 925 Fiber (gm) 16 Goal #1 TF tolerance Goal #2 TF to meet nutrient needs as best possible Follow-Up By: 10/24/21 Additional Comments F/U: TF tolerance, renal function, vent status, propofol
--- NOTE | 2021-10-21 12:28 | Progress Note ---
Assessment and Plan Cultures: SARS CoV2 PCR: positive 10/18/2021 blood culture: no growth A/P: 26-year-old male with hypertension, diabetes, gout admitted with cough and shortness of breath going on for 3 days. He tested positive for COVID-19 and influenza as an outpatient: #Bilateral pneumonia: Suspected secondary to COVID-19 and influenza. #Acute hypoxic respiratory failure: failed NRB / HFNC, on vent. #Acute pulmonary embolism: On anticoagulation #CHANDLER #Morbid obesity #Transaminitis: Likely related to viral illness #Elevated CPK Recs: -IV/PO Dexamethasone x 10 days, agree with higher dose due to morbid obesity -Acute worsening of renal function, Remdesivir discontinued. Also, hasn't been shown to be of much benefit for patients requiring mechanical ventilation -s/p Actemra 10/20/2021 -on anticoagulation for PE -complete 5 days of empiric ceftriaxone, azithromycin -complete PO Tamiflu x 5 days, renally adjusted -trend ferritin, d-dimer, CRP every 2-3 days -guarded prognosis Maggi Aponte MD, FACP, [facility] ([facility] O: [phone] F: [phone] Subjective Date of service: 10/21/21 Interval history: No fever, T-max 99.5 F. Was intubated yesterday. Creatinine worsened to 2.3. Objective - Exam Narrative Exam: Physical Exam (reviewed in chart to minimize risk of transmission) Constitutional: deferred Head, Ears, Nose: deferred Eyes: deferred Neck: deferred Oral: deferred Cardiovascular: deferred Respiratory: deferred GI: deferred Musculoskeletal: deferred Skin: deferred Hem/Lymphatic: deferred Psych: deferred Neurological: deferred - Constitutional Vitals: Vital Signs Temp Pulse Resp BP Pulse Ox 99.5 F 80 18 164/61 97 10/21/21 11:44 10/21/21 12:00 10/21/21 12:00 10/21/21 11:45 10/21/21 12:00 Temperature -Last 24 Hours Temperature 99.5 F Temperature 99.9 F Temperature 98.9 F Temperature 98.1 F Temperature 98.5 F Temperature 99.6 F - Labs CBC & Chem 7: 10/21/21 02:16 10/21/21 03:30 Labs: Abnormal lab results 10/20/21 10/20/21 10/20/21 Range/Units 14:40 15:49 19:11 MCV (84-94) fl MCH (28-32) pg MCHC (32-34) % RDW (13.2-15.2) % D-Dimer (0-234) ng/mlDDU Heparin Anti-Xa Level (0.3-0.7) U.I./ml ABG pH 7.282 L (7.320-7.450) POC ABG pCO2 53.7 H (32.0-48.0) mmHg POC ABG pO2 57.3 L (83-108) mmHg ABG pO2 (80.0-90.0) mm Hg ABG O2 Saturation (95.0-99.0) % ABG Base Excess (-2.0-3.0) mmol/L ABG Hemoglobin (14.0-18.0) gm/dl ABG Oxyhemoglobin 83.6 L (94-98) ABG Sodium 132.2 L (136.0-145.0) mmol/L ABG Potassium 5.5 H (3.40-4.50) mmol/L ABG Glucose 255 H (65-95) mg/dL Oxyhemoglobin (95.0-99.0) % Carboxyhemoglobin 0.3 L (0.5-1.5) Sodium (137-145) mmol/L Potassium (3.6-5.0) mmol/L Chloride (98-107) mmol/L BUN (9-20) mg/dL Creatinine (0.8-1.3) mg/dL Glucose (75-100) mg/dL POC Glucose 239 H 198 H (70-105) mg/dL Calcium (8.4-10.2) mg/dL Phosphorus (2.5-4.5) mg/dL Magnesium (1.7-2.3) mg/dL Ferritin (30.0-300.0) ng/mL AST (5-40) units/L ALT (7-56) units/L Lactate Dehydrogenase (91-180) units/L C-Reactive Protein (0.00-1.30) mg/dL Albumin (3.9-5) g/dL Arterial Blood Glucose 255 H (65-95) mg/dL 10/20/21 10/20/21 10/21/21 Range/Units 22:51 Unknown 02:16 MCV 83 L (84-94) fl MCH 25 L (28-32) pg MCHC 31 L (32-34) % RDW 16.4 H (13.2-15.2) % D-Dimer (0-234) ng/mlDDU Heparin Anti-Xa Level (0.3-0.7) U.I./ml ABG pH (7.320-7.450) POC ABG pCO2 (32.0-48.0) mmHg POC ABG pO2 (83-108) mmHg ABG pO2 (80.0-90.0) mm Hg ABG O2 Saturation (95.0-99.0) % ABG Base Excess (-2.0-3.0) mmol/L ABG Hemoglobin (14.0-18.0) gm/dl ABG Oxyhemoglobin (94-98) ABG Sodium (136.0-145.0) mmol/L ABG Potassium (3.40-4.50) mmol/L ABG Glucose (65-95) mg/dL Oxyhemoglobin (95.0-99.0) % Carboxyhemoglobin (0.5-1.5) Sodium 135 L (137-145) mmol/L Potassium (3.6-5.0) mmol/L Chloride 96.5 L (98-107) mmol/L BUN (9-20) mg/dL Creatinine (0.8-1.3) mg/dL Glucose 191 H (75-100) mg/dL POC Glucose 171 H (70-105) mg/dL Calcium 8.3 L (8.4-10.2) mg/dL Phosphorus (2.5-4.5) mg/dL Magnesium (1.7-2.3) mg/dL Ferritin (30.0-300.0) ng/mL AST 107 H (5-40) units/L ALT 94 H (7-56) units/L Lactate Dehydrogenase (91-180) units/L C-Reactive Protein (0.00-1.30) mg/dL Albumin 3.5 L (3.9-5) g/dL Arterial Blood Glucose (65-95) mg/dL 10/21/21 10/21/21 10/21/21 Range/Units 02:16 02:16 02:16 MCV (84-94) fl MCH (28-32) pg MCHC (32-34) % RDW (13.2-15.2) % D-Dimer 579.49 H (0-234) ng/mlDDU Heparin Anti-Xa Level 1.60 H (0.3-0.7) U.I./ml ABG pH (7.320-7.450) POC ABG pCO2 (32.0-48.0) mmHg POC ABG pO2 (83-108) mmHg ABG pO2 (80.0-90.0) mm Hg ABG O2 Saturation (95.0-99.0) % ABG Base Excess (-2.0-3.0) mmol/L ABG Hemoglobin (14.0-18.0) gm/dl ABG Oxyhemoglobin (94-98) ABG Sodium (136.0-145.0) mmol/L ABG Potassium (3.40-4.50) mmol/L ABG Glucose (65-95) mg/dL Oxyhemoglobin (95.0-99.0) % Carboxyhemoglobin (0.5-1.5) Sodium (137-145) mmol/L Potassium (3.6-5.0) mmol/L Chloride (98-107) mmol/L BUN (9-20) mg/dL Creatinine (0.8-1.3) mg/dL Glucose (75-100) mg/dL POC Glucose (70-105) mg/dL Calcium (8.4-10.2) mg/dL Phosphorus 10.40 H (2.5-4.5) mg/dL Magnesium 3.00 H (1.7-2.3) mg/dL Ferritin 1550.0 H (30.0-300.0) ng/mL AST (5-40) units/L ALT (7-56) units/L Lactate Dehydrogenase 970 H (91-180) units/L C-Reactive Protein 21.10 H (0.00-1.30) mg/dL Albumin (3.9-5) g/dL Arterial Blood Glucose (65-95) mg/dL 10/21/21 10/21/21 10/21/21 Range/Units 03:30 04:40 04:51 MCV (84-94) fl MCH (28-32) pg MCHC (32-34) % RDW (13.2-15.2) % D-Dimer (0-234) ng/mlDDU Heparin Anti-Xa Level (0.3-0.7) U.I./ml ABG pH 7.184 L* (7.320-7.450) POC ABG pCO2 (32.0-48.0) mmHg POC ABG pO2 (83-108) mmHg ABG pO2 60.2 L (80.0-90.0) mm Hg ABG O2 Saturation 86.6 L (95.0-99.0) % ABG Base Excess -4.3 L (-2.0-3.0) mmol/L ABG Hemoglobin 12.1 L (14.0-18.0) gm/dl ABG Oxyhemoglobin (94-98) ABG Sodium (136.0-145.0) mmol/L ABG Potassium (3.40-4.50) mmol/L ABG Glucose (65-95) mg/dL Oxyhemoglobin 85.2 L (95.0-99.0) % Carboxyhemoglobin (0.5-1.5) Sodium 136 L (137-145) mmol/L Potassium 7.0 H* D (3.6-5.0) mmol/L Chloride (98-107) mmol/L BUN 43 H (9-20) mg/dL Creatinine 2.3 H D (0.8-1.3) mg/dL Glucose 210 H (75-100) mg/dL POC Glucose 204 H (70-105) mg/dL Calcium 8.3 L (8.4-10.2) mg/dL Phosphorus (2.5-4.5) mg/dL Magnesium (1.7-2.3) mg/dL Ferritin (30.0-300.0) ng/mL AST 206 H (5-40) units/L ALT 194 H (7-56) units/L Lactate Dehydrogenase (91-180) units/L C-Reactive Protein (0.00-1.30) mg/dL Albumin 3.3 L (3.9-5) g/dL Arterial Blood Glucose (65-95) mg/dL 10/21/21 10/21/21 10/21/21 Range/Units 09:15 10:53 11:27 MCV (84-94) fl MCH (28-32) pg MCHC (32-34) % RDW (13.2-15.2) % D-Dimer (0-234) ng/mlDDU Heparin Anti-Xa Level (0.3-0.7) U.I./ml ABG pH (7.320-7.450) POC ABG pCO2 (32.0-48.0) mmHg POC ABG pO2 (83-108) mmHg ABG pO2 (80.0-90.0) mm Hg ABG O2 Saturation (95.0-99.0) % ABG Base Excess (-2.0-3.0) mmol/L ABG Hemoglobin (14.0-18.0) gm/dl ABG Oxyhemoglobin (94-98) ABG Sodium (136.0-145.0) mmol/L ABG Potassium (3.40-4.50) mmol/L ABG Glucose (65-95) mg/dL Oxyhemoglobin (95.0-99.0) % Carboxyhemoglobin (0.5-1.5) Sodium (137-145) mmol/L Potassium (3.6-5.0) mmol/L Chloride (98-107) mmol/L BUN (9-20) mg/dL Creatinine (0.8-1.3) mg/dL Glucose (75-100) mg/dL POC Glucose 177 H 183 H 184 H (70-105) mg/dL Calcium (8.4-10.2) mg/dL Phosphorus (2.5-4.5) mg/dL Magnesium (1.7-2.3) mg/dL Ferritin (30.0-300.0) ng/mL AST (5-40) units/L ALT (7-56) units/L Lactate Dehydrogenase (91-180) units/L C-Reactive Protein (0.00-1.30) mg/dL Albumin (3.9-5) g/dL Arterial Blood Glucose (65-95) mg/dL 10/21/21 Range/Units Unknown MCV (84-94) fl MCH (28-32) pg MCHC (32-34) % RDW (13.2-15.2) % D-Dimer (0-234) ng/mlDDU Heparin Anti-Xa Level 1.04 H (0.3-0.7) U.I./ml ABG pH (7.320-7.450) POC ABG pCO2 (32.0-48.0) mmHg POC ABG pO2 (83-108) mmHg ABG pO2 (80.0-90.0) mm Hg ABG O2 Saturation (95.0-99.0) % ABG Base Excess (-2.0-3.0) mmol/L ABG Hemoglobin (14.0-18.0) gm/dl ABG Oxyhemoglobin (94-98) ABG Sodium (136.0-145.0) mmol/L ABG Potassium (3.40-4.50) mmol/L ABG Glucose (65-95) mg/dL Oxyhemoglobin (95.0-99.0) % Carboxyhemoglobin (0.5-1.5) Sodium (137-145) mmol/L Potassium (3.6-5.0) mmol/L Chloride (98-107) mmol/L BUN (9-20) mg/dL Creatinine (0.8-1.3) mg/dL Glucose (75-100) mg/dL POC Glucose (70-105) mg/dL Calcium (8.4-10.2) mg/dL Phosphorus (2.5-4.5) mg/dL Magnesium (1.7-2.3) mg/dL Ferritin (30.0-300.0) ng/mL AST (5-40) units/L ALT (7-56) units/L Lactate Dehydrogenase (91-180) units/L C-Reactive Protein (0.00-1.30) mg/dL Albumin (3.9-5) g/dL Arterial Blood Glucose (65-95) mg/dL
[2021-10-21 12:50] LABS: ABG Base Excess -3.6 mmol/L (-2.0-3.0); ABG HCO3 26.2 mmol/L (20.0-26.0); ABG Methemoglobin 0.6 % (0.0-1.5); ABG Oxygen Saturation 94.6 % (95.0-99.0); ABG PCO2 71.3 mm Hg
[2021-10-21 12:54] LABS: ABG PH 7.183 pH Units (7.350-7.450)
--- NOTE | 2021-10-21 13:06 | Ultrasound Report ---
US renal BILAT INDICATION / CLINICAL INFORMATION: phan. COMPARISON: None available. FINDINGS: RIGHT KIDNEY: Size = 11.5 cm. - Echogenicity: Normal. - Cortical thickness: Normal. - Hydronephrosis: None. - Cyst or mass: None. - Stones: None seen.. LEFT KIDNEY: Size = 10.3 cm. - Echogenicity: Normal. - Cortical thickness: Normal. - Hydronephrosis: None. - Cyst or mass: None. - Stones: None seen.. URINARY BLADDER: Decompressed via Scott catheter. Bladder not well seen. FREE FLUID: None. ADDITIONAL FINDINGS: None. IMPRESSION 1. No significant sonographic abnormality of the kidneys. Signer Name: Alvaro Wadsworth MD Signed: 10/21/2021 1:02 PM Workstation Name: [id number]
[2021-10-21 14:31] LABS: Creatinine,Urine 153.1 mg/dL (0.1-20.0)
--- NOTE | 2021-10-21 15:02 | Progress Note ---
Assessment and Plan 26 y/o morbidly obese male admitted with acute respiratory failure secondary to COVID pneumonia 10/21/21: Follow up echo. Unfortunately, requested initially to look for right heart strain and possible need for EKOS therapy however now in acute renal failure and needing dialysis. CXR is stable but does look like ARDS. HD catheter placed and ready for dialysis. [employer] placing art line now. Continue IV steroids, Continue remdesivir. Now that patient is intubated, prognosis is extremely poor, especially with renal failure. Continue supportive care. May need bicarb later. 1. Continue HFNC with NRB. Will use precedex in an attempt to help with anxiety 2. Long discussion with patient and at bedside in regards to risk of intubation and prognosis associated with this. Both expressed understanding 3. IV steroids, will increase to BID 4. Remdesivir 5. Actemra 6. Guarded to poor prognosis. CCT 31 minutes. Subjective Date of service: 10/21/21 Interval history: Unfortunately patient progressed to needing bipap but could not tolerate, (ripped off) despite max dosing of precedex with prn ativan so electively intubated. Oxygenation has improved however metabolic acidosis is worsening along with renal failure. Renal has seen and suggested HD. Objective Vital Signs - 12hr 10/21/21 10/21/21 10/21/21 03:00 03:15 03:30 Temperature Pulse Rate 109 H 103 H 109 H Pulse Rate [ From Monitor] Respiratory 14 16 17 Rate Blood Pressure 136/89 134/101 137/95 O2 Sat by Pulse 95 94 94 Oximetry 10/21/21 10/21/21 10/21/21 03:41 03:45 03:59 Temperature 98.9 F Pulse Rate 90 Pulse Rate [ 91 H From Monitor] Respiratory 19 20 Rate Blood Pressure 141/92 O2 Sat by Pulse 95 96 Oximetry 10/21/21 10/21/21 10/21/21 04:00 04:15 04:30 Temperature Pulse Rate 87 88 88 Pulse Rate [ From Monitor] Respiratory 16 18 18 Rate Blood Pressure 140/87 142/89 153/84 O2 Sat by Pulse 94 93 93 Oximetry 10/21/21 10/21/21 10/21/21 04:31 04:45 05:01 Temperature Pulse Rate 87 87 87 Pulse Rate [ From Monitor] Respiratory 24 27 H Rate Blood Pressure 147/95 161/92 161/92 O2 Sat by Pulse 93 94 95 Oximetry 10/21/21 10/21/21 10/21/21 05:15 05:30 05:45 Temperature Pulse Rate 87 86 87 Pulse Rate [ From Monitor] Respiratory 29 H 27 H 27 H Rate Blood Pressure 147/95 148/91 150/85 O2 Sat by Pulse 93 93 94 Oximetry 10/21/21 10/21/21 10/21/21 06:00 06:15 06:30 Temperature Pulse Rate 88 87 87 Pulse Rate [ From Monitor] Respiratory 23 22 20 Rate Blood Pressure 142/88 144/86 135/85 O2 Sat by Pulse 95 Oximetry 10/21/21 10/21/21 10/21/21 06:45 07:00 07:15 Temperature Pulse Rate 87 87 88 Pulse Rate [ From Monitor] Respiratory 20 21 19 Rate Blood Pressure 140/86 150/81 131/80 O2 Sat by Pulse 95 94 95 Oximetry 10/21/21 10/21/21 10/21/21 07:30 07:35 07:45 Temperature 99.9 F H Pulse Rate 87 86 Pulse Rate [ From Monitor] Respiratory 19 15 Rate Blood Pressure 147/91 146/88 O2 Sat by Pulse 96 96 Oximetry 10/21/21 10/21/21 10/21/21 08:00 08:15 08:30 Temperature Pulse Rate 88 88 84 Pulse Rate [ 98 H From Monitor] Respiratory 20 17 14 Rate Blood Pressure 148/85 150/84 142/74 O2 Sat by Pulse 95 96 94 Oximetry 10/21/21 10/21/21 10/21/21 08:45 09:00 09:15 Temperature Pulse Rate 83 83 83 Pulse Rate [ From Monitor] Respiratory 16 26 H 22 Rate Blood Pressure 138/69 130/71 135/72 O2 Sat by Pulse 95 96 97 Oximetry 10/21/21 10/21/21 10/21/21 09:26 09:31 09:45 Temperature Pulse Rate 82 82 80 Pulse Rate [ From Monitor] Respiratory 22 22 Rate Blood Pressure 135/72 128/76 138/74 O2 Sat by Pulse 949 H 95 98 Oximetry 10/21/21 10/21/21 10/21/21 10:00 10:15 10:30 Temperature Pulse Rate 79 79 81 Pulse Rate [ From Monitor] Respiratory 26 H 26 H 25 H Rate Blood Pressure 133/71 141/76 132/77 O2 Sat by Pulse 97 98 98 Oximetry 10/21/21 10/21/21 10/21/21 10:45 10:50 11:00 Temperature Pulse Rate 81 79 Pulse Rate [ From Monitor] Respiratory 26 H 18 Rate Blood Pressure 145/79 147/81 O2 Sat by Pulse 98 94 100 Oximetry 10/21/21 10/21/21 10/21/21 11:15 11:30 11:44 Temperature 99.5 F Pulse Rate 74 78 Pulse Rate [ From Monitor] Respiratory 13 18 Rate Blood Pressure 139/74 161/64 O2 Sat by Pulse 96 100 Oximetry 10/21/21 10/21/21 10/21/21 11:45 12:00 12:15 Temperature Pulse Rate 77 80 77 Pulse Rate [ 80 From Monitor] Respiratory 19 17 15 Rate Blood Pressure 164/61 159/65 159/73 O2 Sat by Pulse 97 99 Oximetry 10/21/21 10/21/21 10/21/21 12:30 12:38 12:45 Temperature Pulse Rate 80 79 Pulse Rate [ From Monitor] Respiratory 18 14 Rate Blood Pressure 168/81 135/74 O2 Sat by Pulse 94 97 Oximetry 10/21/21 10/21/21 10/21/21 13:00 13:15 13:30 Temperature Pulse Rate 79 80 80 Pulse Rate [ From Monitor] Respiratory 16 14 16 Rate Blood Pressure 143/75 137/80 149/75 O2 Sat by Pulse 97 98 98 Oximetry 10/21/21 10/21/21 10/21/21 13:45 14:00 14:15 Temperature Pulse Rate 79 72 77 Pulse Rate [ From Monitor] Respiratory 20 21 18 Rate Blood Pressure 148/83 137/69 137/63 O2 Sat by Pulse 97 88 90 Oximetry Constitutional: appears uncomfortable, other (morbidly obese) Eyes: non-icteric ENT: oropharynx moist Neck: supple, other (large in circumference) Effort: very labored Ascultation: Bilateral: diminished breath sounds Percussion: Bilateral: not dull Tactile fremitus: Bilateral: normal Cardiovascular: regular rate and rhythm Gastrointestinal: normoactive bowel sounds, soft Extremities: no edema Neurologic: normal mental status Psychiatric: anxious CBC and BMP: 10/21/21 02:16 10/21/21 12:00 ABG, PT/INR, D-dimer: ABG ABG pH 7.183 pH Units (7.350-7.450) L* 10/21/21 12:39 POC ABG pCO2 53.7 mmHg (32.0-48.0) H 10/20/21 14:40 ABG pCO2 71.3 mm Hg 10/21/21 12:39 POC ABG pO2 57.3 mmHg (83-108) L 10/20/21 14:40 ABG pO2 82.0 mm Hg (80.0-90.0) 10/21/21 12:39 POC ABG HCO3 24.8 10/20/21 14:40 ABG O2 Saturation 94.6 % (95.0-99.0) L 10/21/21 12:39 PT/INR, D-dimer PT 14.8 Sec. (12.2-14.9) 10/20/21 13:30 INR 1.05 (0.87-1.13) 10/20/21 13:30 D-Dimer 579.49 ng/mlDDU (0-234) H 10/21/21 02:16 Abnormal lab findings: Abnormal Labs 10/18/21 10/18/21 10/19/21 16:39 16:39 08:24 MCV 79 L MCH 26 L MCHC RDW 15.4 H Lymph % (Auto) 7.7 L Lymph # (Auto) 0.6 L Seg Neutrophils % 86.4 H Seg Neutrophils # D-Dimer Heparin Anti-Xa Level ABG pH POC ABG pCO2 POC ABG pO2 ABG pO2 ABG HCO3 ABG O2 Saturation ABG Base Excess ABG Hemoglobin ABG Oxyhemoglobin ABG Sodium ABG Potassium ABG Glucose Oxyhemoglobin Carboxyhemoglobin Sodium 133 L Potassium Chloride 96.6 L Carbon Dioxide 19 L BUN Creatinine Glucose 183 H POC Glucose Hemoglobin A1c Calcium Phosphorus Magnesium Ferritin AST 72 H ALT 58 H Lactate Dehydrogenase Total Creatine Kinase 1484 H C-Reactive Protein Total Protein Albumin 3.6 L Arterial Blood Glucose Urine Creatinine Urine Total Protein Coronavirus (PCR) Positive A 10/19/21 10/19/21 10/19/21 13:41 17:41 21:02 MCV MCH MCHC RDW Lymph % (Auto) Lymph # (Auto) Seg Neutrophils % Seg Neutrophils # D-Dimer Heparin Anti-Xa Level ABG pH POC ABG pCO2 POC ABG pO2 ABG pO2 ABG HCO3 ABG O2 Saturation ABG Base Excess ABG Hemoglobin ABG Oxyhemoglobin ABG Sodium ABG Potassium ABG Glucose Oxyhemoglobin Carboxyhemoglobin Sodium Potassium Chloride Carbon Dioxide BUN Creatinine Glucose POC Glucose 231 H 228 H 271 H Hemoglobin A1c Calcium Phosphorus Magnesium Ferritin AST ALT Lactate Dehydrogenase Total Creatine Kinase C-Reactive Protein Total Protein Albumin Arterial Blood Glucose Urine Creatinine Urine Total Protein Coronavirus (PCR) 10/19/21 10/19/21 10/19/21 23:52 23:52 23:52 MCV 79 L MCH 25 L MCHC RDW 15.9 H Lymph % (Auto) 4.9 L Lymph # (Auto) 0.5 L Seg Neutrophils % 89.7 H Seg Neutrophils # 8.9 H D-Dimer Heparin Anti-Xa Level ABG pH POC ABG pCO2 POC ABG pO2 ABG pO2 ABG HCO3 ABG O2 Saturation ABG Base Excess ABG Hemoglobin ABG Oxyhemoglobin ABG Sodium ABG Potassium ABG Glucose Oxyhemoglobin Carboxyhemoglobin Sodium 133 L Potassium Chloride 95.0 L Carbon Dioxide 18 L BUN Creatinine Glucose 217 H POC Glucose Hemoglobin A1c 7.9 H Calcium Phosphorus Magnesium Ferritin AST 94 H ALT 76 H Lactate Dehydrogenase Total Creatine Kinase C-Reactive Protein Total Protein 8.4 H Albumin 3.6 L Arterial Blood Glucose Urine Creatinine Urine Total Protein Coronavirus (PCR) 10/19/21 10/19/21 10/19/21 23:52 23:52 23:52 MCV MCH MCHC RDW Lymph % (Auto) Lymph # (Auto) Seg Neutrophils % Seg Neutrophils # D-Dimer Heparin Anti-Xa Level ABG pH POC ABG pCO2 POC ABG pO2 ABG pO2 ABG HCO3 ABG O2 Saturation ABG Base Excess ABG Hemoglobin ABG Oxyhemoglobin ABG Sodium ABG Potassium ABG Glucose Oxyhemoglobin Carboxyhemoglobin Sodium Potassium Chloride Carbon Dioxide BUN Creatinine Glucose POC Glucose Hemoglobin A1c Calcium Phosphorus Magnesium Ferritin 786.1 H AST ALT Lactate Dehydrogenase 625 H Total Creatine Kinase C-Reactive Protein 18.80 H Total Protein Albumin Arterial Blood Glucose Urine Creatinine Urine Total Protein Coronavirus (PCR) 10/19/21 10/20/21 10/20/21 23:52 11:25 14:40 MCV MCH MCHC RDW Lymph % (Auto) Lymph # (Auto) Seg Neutrophils % Seg Neutrophils # D-Dimer Heparin Anti-Xa Level ABG pH 7.282 L POC ABG pCO2 53.7 H POC ABG pO2 57.3 L ABG pO2 ABG HCO3 ABG O2 Saturation ABG Base Excess ABG Hemoglobin ABG Oxyhemoglobin 83.6 L ABG Sodium 132.2 L ABG Potassium 5.5 H ABG Glucose 255 H Oxyhemoglobin Carboxyhemoglobin 0.3 L Sodium Potassium Chloride Carbon Dioxide BUN Creatinine Glucose POC Glucose 174 H Hemoglobin A1c Calcium Phosphorus Magnesium Ferritin AST ALT Lactate Dehydrogenase Total Creatine Kinase C-Reactive Protein 19.20 H Total Protein Albumin Arterial Blood Glucose 255 H Urine Creatinine Urine Total Protein Coronavirus (PCR) 10/20/21 10/20/21 10/20/21 15:49 19:11 22:51 MCV MCH MCHC RDW Lymph % (Auto) Lymph # (Auto) Seg Neutrophils % Seg Neutrophils # D-Dimer Heparin Anti-Xa Level ABG pH POC ABG pCO2 POC ABG pO2 ABG pO2 ABG HCO3 ABG O2 Saturation ABG Base Excess ABG Hemoglobin ABG Oxyhemoglobin ABG Sodium ABG Potassium ABG Glucose Oxyhemoglobin Carboxyhemoglobin Sodium Potassium Chloride Carbon Dioxide BUN Creatinine Glucose POC Glucose 239 H 198 H 171 H Hemoglobin A1c Calcium Phosphorus Magnesium Ferritin AST ALT Lactate Dehydrogenase Total Creatine Kinase C-Reactive Protein Total Protein Albumin Arterial Blood Glucose Urine Creatinine Urine Total Protein Coronavirus (PCR) 10/20/21 10/21/21 10/21/21 Unknown 02:16 02:16 MCV 83 L MCH 25 L MCHC 31 L RDW 16.4 H Lymph % (Auto) Lymph # (Auto) Seg Neutrophils % Seg Neutrophils # D-Dimer Heparin Anti-Xa Level ABG pH POC ABG pCO2 POC ABG pO2 ABG pO2 ABG HCO3 ABG O2 Saturation ABG Base Excess ABG Hemoglobin ABG Oxyhemoglobin ABG Sodium ABG Potassium ABG Glucose Oxyhemoglobin Carboxyhemoglobin Sodium 135 L Potassium Chloride 96.5 L Carbon Dioxide BUN Creatinine Glucose 191 H POC Glucose Hemoglobin A1c Calcium 8.3 L Phosphorus 10.40 H Magnesium 3.00 H Ferritin AST 107 H ALT 94 H Lactate Dehydrogenase 970 H Total Creatine Kinase C-Reactive Protein 21.10 H Total Protein Albumin 3.5 L Arterial Blood Glucose Urine Creatinine Urine Total Protein Coronavirus (PCR) 10/21/21 10/21/21 10/21/21 02:16 02:16 03:30 MCV MCH MCHC RDW Lymph % (Auto) Lymph # (Auto) Seg Neutrophils % Seg Neutrophils # D-Dimer 579.49 H Heparin Anti-Xa Level 1.60 H ABG pH POC ABG pCO2 POC ABG pO2 ABG pO2 ABG HCO3 ABG O2 Saturation ABG Base Excess ABG Hemoglobin ABG Oxyhemoglobin ABG Sodium ABG Potassium ABG Glucose Oxyhemoglobin Carboxyhemoglobin Sodium 136 L Potassium 7.0 H* D Chloride Carbon Dioxide BUN 43 H Creatinine 2.3 H D Glucose 210 H POC Glucose Hemoglobin A1c Calcium 8.3 L Phosphorus Magnesium Ferritin 1550.0 H AST 206 H ALT 194 H Lactate Dehydrogenase Total Creatine Kinase C-Reactive Protein Total Protein Albumin 3.3 L Arterial Blood Glucose Urine Creatinine Urine Total Protein Coronavirus (PCR) 10/21/21 10/21/21 10/21/21 04:40 04:51 09:15 MCV MCH MCHC RDW Lymph % (Auto) Lymph # (Auto) Seg Neutrophils % Seg Neutrophils # D-Dimer Heparin Anti-Xa Level ABG pH 7.184 L* POC ABG pCO2 POC ABG pO2 ABG pO2 60.2 L ABG HCO3 ABG O2 Saturation 86.6 L ABG Base Excess -4.3 L ABG Hemoglobin 12.1 L ABG Oxyhemoglobin ABG Sodium ABG Potassium ABG Glucose Oxyhemoglobin 85.2 L Carboxyhemoglobin Sodium Potassium Chloride Carbon Dioxide BUN Creatinine Glucose POC Glucose 204 H 177 H Hemoglobin A1c Calcium Phosphorus Magnesium Ferritin AST ALT Lactate Dehydrogenase Total Creatine Kinase C-Reactive Protein Total Protein Albumin Arterial Blood Glucose Urine Creatinine Urine Total Protein Coronavirus (PCR) 10/21/21 10/21/21 10/21/21 10:53 11:27 12:00 MCV MCH MCHC RDW Lymph % (Auto) Lymph # (Auto) Seg Neutrophils % Seg Neutrophils # D-Dimer Heparin Anti-Xa Level ABG pH POC ABG pCO2 POC ABG pO2 ABG pO2 ABG HCO3 ABG O2 Saturation ABG Base Excess ABG Hemoglobin ABG Oxyhemoglobin ABG Sodium ABG Potassium ABG Glucose Oxyhemoglobin Carboxyhemoglobin Sodium Potassium 6.7 H* Chloride Carbon Dioxide BUN 54 H Creatinine 2.8 H Glucose 190 H POC Glucose 183 H 184 H Hemoglobin A1c Calcium 8.0 L Phosphorus Magnesium Ferritin AST ALT Lactate Dehydrogenase Total Creatine Kinase C-Reactive Protein Total Protein Albumin Arterial Blood Glucose Urine Creatinine Urine Total Protein Coronavirus (PCR) 10/21/21 10/21/21 10/21/21 12:39 Unknown Unknown MCV MCH MCHC RDW Lymph % (Auto) Lymph # (Auto) Seg Neutrophils % Seg Neutrophils # D-Dimer Heparin Anti-Xa Level 1.04 H ABG pH 7.183 L* POC ABG pCO2 POC ABG pO2 ABG pO2 ABG HCO3 26.2 H ABG O2 Saturation 94.6 L ABG Base Excess -3.6 L ABG Hemoglobin 13.1 L ABG Oxyhemoglobin ABG Sodium ABG Potassium ABG Glucose Oxyhemoglobin 93.0 L Carboxyhemoglobin Sodium Potassium Chloride Carbon Dioxide BUN Creatinine Glucose POC Glucose Hemoglobin A1c Calcium Phosphorus Magnesium Ferritin AST ALT Lactate Dehydrogenase Total Creatine Kinase C-Reactive Protein Total Protein Albumin Arterial Blood Glucose Urine Creatinine 153.1 H Urine Total Protein 173 H Coronavirus (PCR)
--- NOTE | 2021-10-21 16:23 | Procedure Note ---
Date of procedure: 10/21/21 Pre-op diagnosis: Acute hypoxic respiratory failure, acute renal failure requiring HD, ARDs Post-op diagnosis: same Procedure: Verbal Consent obtained from at bedside, Sherita Turcios. Trialysis Vas-Cath catheter was placed in right femoral. Sterile technique was utilized. Area prepped with chlorhexidine/ full body drape utilized. Ultrasound guidance was used to find and access the vessel. Line was placed without difficulty. Line was sutured, biopatch not available and tegaderm dressing applied. Pt tolerated procedure well. VS remained stable throughout procedure. (time spent placing line not included in daily critical care time) CCT: 60 minutes Anesthesia: local Surgeon: CANDACE SALDIVAR Estimated blood loss: minimal Condition: critical Disposition: ICU
--- NOTE | 2021-10-21 16:27 | Procedure Note ---
Date of procedure: 10/21/21 Pre-op diagnosis: ARDs, acute hypoxic respiratory failure, Covid pneumonia, CHANDLER Post-op diagnosis: same Procedure: Dago test completed. Ulnar pulse intact. Right radial arterial line no inserted using sterile technique. Area prepped with chlorhexidine and the site was infiltrated with 1ml 1% lidocaine. Arterial line was placed using ultrasound; catheter advanced without difficulty. Line was sutured, biopatch not available and tegaderm dressing applied. Arterial waveform observed on bedside monitor. Line flushed and zeroed. RN at bedside. Pt tolerated procedure well. VS remained stable throughout procedure. (time spent placing line not included in daily critical care time) CCT: 60 mins Anesthesia: regional Surgeon: CANDACE SALDIVAR Estimated blood loss: minimal Pathology: none Condition: critical Disposition: ICU
[2021-10-21] MEDS: cefTRIAXone/NS 2 GM/100 ML 2 GM/100 ML BAG IV SCH (21:05)
[2021-10-21] MEDS: AZITHROMYCIN/NS 500 MG/250 ML 500 MG/250 ML BAG IV SCH (21:05)
[2021-10-21] MEDS: INSULIN GLARGINE 100 UNITS/ML SUB-Q SCH (21:08)
[2021-10-21] MEDS: OSELTAMIVIR PHOSPHATE 30 MG CAP PO SCH (21:18)
[2021-10-21] MEDS: MIDAZOLAM 100 MG in SODIUM CHLORIDE 0.9% 80 ML IV SCH (21:18)
[2021-10-21 22:02] LABS: ABG Base Excess -2.2 mmol/L (-2.0-3.0); ABG Methemoglobin 0.6 % (0.0-1.5); ABG PCO2 71.8 mm Hg; ABG PO2 59.7 mm Hg (80.0-90.0)
[2021-10-21 22:08] LABS: ABG PH 7.193 pH Units (7.350-7.450)
[2021-10-21] MEDS: HEPARIN/ 0.45% NACL DRIP 25,000 UNIT/500 ML BAG IV SCH (22:30)
[2021-10-22] MEDS: dexAMETHasone 4 MG/ML VIAL IV SCH (00:40)
[2021-10-22] MEDS: FAMOTIDINE 20 MG/2 ML INJ IV SCH ×3 (00:41→21:25)
[2021-10-22] MEDS: INSULIN LISPRO 100 UNIT/ML SUB-Q SCH ×4 (00:57→18:34)
--- NOTE | 2021-10-22 03:25 | XRay Report ---
CHEST 1 VIEW 10/22/2021 2:12 AM INDICATION / CLINICAL INFORMATION: follow up respiratory failure. COMPARISON: One view of the chest from 10/21/2021. FINDINGS: SUPPORT DEVICES: Unchanged. HEART / MEDIASTINUM: Stable. LUNGS / PLEURA: Bilateral airspace opacities have worsened. No large pleural effusion. No pneumothora x. ADDITIONAL FINDINGS: No significant additional findings. IMPRESSION: Interval worsening of bilateral airspace opacities without other significant interval changes. Signer Name: Evangelist Sharp MD Signed: 10/22/2021 3:21 AM Workstation Name: [id number]
[2021-10-22] MEDS: fentaNYL DRIP Premix 2,000 MCG/100 ML BAG IV SCH ×6 (03:36→21:12)
[2021-10-22 04:17] LABS: Hematocrit 36.6 % (35.5-45.6); Hemoglobin 11.2 gm/dl (11.8-15.2)
[2021-10-22 04:34] LABS: Albumin 3.2 g/dL (3.9-5); Calcium 7.7 mg/dL (8.4-10.2)
--- NOTE | 2021-10-22 08:38 | Progress Note ---
Assessment and Plan 26 y/o morbidly obese male admitted with acute respiratory failure secondary to COVID pneumonia 10/22/21: Hold on weaning today. Will ask renal for HD again today, and hopeful some volume removal. Hopeful echo can be read today. Maybe out of window for EKOS if evidence of right heart strain. CXR is worse. Will change steroids to solumedrol 60q8, may need long acting insulin. Feed patient. Very very guarded to poor prognosis. Will ask renal if they will dialyze again today. 10/21/21: Follow up echo. Unfortunately, requested initially to look for right heart strain and possible need for EKOS therapy however now in acute renal failure and needing dialysis. CXR is stable but does look like ARDS. HD catheter placed and ready for dialysis. TECHNICAL ANALYST placing art line now. Continue IV steroids, Continue remdesivir. Now that patient is intubated, prognosis is extremely poor, especially with renal failure. Continue supportive care. May need bicarb later. 1. Continue HFNC with NRB. Will use precedex in an attempt to help with anxiety 2. Long discussion with patient and at bedside in regards to risk of intubation and prognosis associated with this. Both expressed understanding 3. IV steroids, will increase to BID 4. Remdesivir 5. Actemra 6. Guarded to poor prognosis. CCT 31 minutes. Subjective Date of service: 10/22/21 Interval history: Desatted this am so had to be increased back to 100%. Despite HD on yesterday BUN and CR are about the same. K is 6. Triglycerides are 390. Still on Diprovan and Vent. Objective Vital Signs - 12hr 10/21/21 10/21/21 10/21/21 20:45 21:00 21:15 Temperature Pulse Rate 81 85 85 Pulse Rate [ From Monitor] Respiratory 17 18 17 Rate Blood Pressure 115/66 115/66 112/65 O2 Sat by Pulse 89 91 92 Oximetry 10/21/21 10/21/21 10/21/21 21:30 21:45 22:00 Temperature Pulse Rate 86 84 86 Pulse Rate [ From Monitor] Respiratory 15 13 19 Rate Blood Pressure 112/65 119/65 119/65 O2 Sat by Pulse 93 94 94 Oximetry 10/21/21 10/21/21 10/21/21 22:15 22:30 22:45 Temperature Pulse Rate 85 87 82 Pulse Rate [ From Monitor] Respiratory 15 15 14 Rate Blood Pressure 116/70 116/70 127/65 O2 Sat by Pulse 95 95 95 Oximetry 10/21/21 10/21/21 10/21/21 22:50 23:00 23:01 Temperature Pulse Rate 85 85 85 Pulse Rate [ 88 From Monitor] Respiratory 18 14 12 Rate Blood Pressure 127/65 118/68 O2 Sat by Pulse 96 94 95 Oximetry 10/21/21 10/21/21 10/21/21 23:16 23:20 23:28 Temperature 100.6 F H Pulse Rate 86 88 Pulse Rate [ From Monitor] Respiratory 16 Rate Blood Pressure 110/65 105/61 O2 Sat by Pulse 96 94 Oximetry 10/21/21 10/21/21 10/22/21 23:30 23:45 00:00 Temperature Pulse Rate 83 85 85 Pulse Rate [ From Monitor] Respiratory 18 13 18 Rate Blood Pressure 120/69 122/67 132/75 O2 Sat by Pulse 92 94 96 Oximetry 10/22/21 10/22/21 10/22/21 00:16 00:30 00:45 Temperature Pulse Rate 85 86 88 Pulse Rate [ From Monitor] Respiratory 13 11 L 13 Rate Blood Pressure 126/62 125/68 125/77 O2 Sat by Pulse 94 94 94 Oximetry 10/22/21 10/22/21 10/22/21 01:00 01:15 01:30 Temperature Pulse Rate 84 84 83 Pulse Rate [ From Monitor] Respiratory 14 16 14 Rate Blood Pressure 116/71 121/70 121/70 O2 Sat by Pulse 93 94 93 Oximetry 10/22/21 10/22/21 10/22/21 01:45 02:00 02:15 Temperature Pulse Rate 84 84 87 Pulse Rate [ From Monitor] Respiratory 13 15 14 Rate Blood Pressure 112/67 112/67 123/67 O2 Sat by Pulse 94 94 94 Oximetry 10/22/21 10/22/21 10/22/21 02:30 02:45 02:50 Temperature Pulse Rate 85 85 Pulse Rate [ 91 H From Monitor] Respiratory 14 14 18 Rate Blood Pressure 128/60 121/65 O2 Sat by Pulse 93 90 96 Oximetry 10/22/21 10/22/21 10/22/21 03:00 03:15 03:20 Temperature 100.5 F H Pulse Rate 90 94 H 89 Pulse Rate [ From Monitor] Respiratory 24 17 Rate Blood Pressure 121/65 129/73 130/75 O2 Sat by Pulse 90 89 Oximetry 10/22/21 10/22/21 10/22/21 03:30 03:45 04:00 Temperature Pulse Rate 92 H 92 H 88 Pulse Rate [ From Monitor] Respiratory 22 16 18 Rate Blood Pressure 119/70 118/75 126/70 O2 Sat by Pulse 87 88 89 Oximetry 10/22/21 10/22/21 10/22/21 04:15 04:30 04:45 Temperature Pulse Rate 87 89 90 Pulse Rate [ From Monitor] Respiratory 16 18 19 Rate Blood Pressure 116/68 116/77 113/67 O2 Sat by Pulse 88 87 87 Oximetry 10/22/21 10/22/21 10/22/21 05:00 05:15 05:30 Temperature Pulse Rate 89 87 92 H Pulse Rate [ From Monitor] Respiratory 17 16 18 Rate Blood Pressure 124/73 130/75 127/67 O2 Sat by Pulse 89 88 89 Oximetry 10/22/21 10/22/21 10/22/21 05:45 05:55 06:00 Temperature Pulse Rate 90 92 H 89 Pulse Rate [ From Monitor] Respiratory 19 18 16 Rate Blood Pressure 130/71 113/74 O2 Sat by Pulse 91 96 90 Oximetry 10/22/21 10/22/21 10/22/21 06:15 06:30 06:45 Temperature Pulse Rate 90 86 86 Pulse Rate [ From Monitor] Respiratory 18 19 15 Rate Blood Pressure 125/71 126/74 120/72 O2 Sat by Pulse 88 89 89 Oximetry 10/22/21 10/22/21 10/22/21 07:00 07:15 07:30 Temperature Pulse Rate 90 86 83 Pulse Rate [ From Monitor] Respiratory 20 16 19 Rate Blood Pressure 122/73 126/75 116/70 O2 Sat by Pulse 89 89 88 Oximetry 10/22/21 10/22/21 10/22/21 07:45 08:00 08:15 Temperature Pulse Rate 84 86 82 Pulse Rate [ 85 From Monitor] Respiratory 19 21 18 Rate Blood Pressure 132/74 125/77 126/74 O2 Sat by Pulse 87 91 88 Oximetry Constitutional: appears uncomfortable, other (morbidly obese) Eyes: non-icteric ENT: oropharynx moist Neck: supple, other (large in circumference) Effort: very labored Ascultation: Bilateral: diminished breath sounds Percussion: Bilateral: not dull Tactile fremitus: Bilateral: normal Cardiovascular: regular rate and rhythm Gastrointestinal: normoactive bowel sounds, soft Extremities: no edema Neurologic: normal mental status Psychiatric: anxious CBC and BMP: 10/22/21 02:50 10/22/21 02:50 ABG, PT/INR, D-dimer: ABG ABG pH 7.193 pH Units (7.350-7.450) L* 10/21/21 21:45 POC ABG pCO2 69.9 mmHg (32.0-48.0) H 10/21/21 09:34 ABG pCO2 71.8 mm Hg 10/21/21 21:45 POC ABG pO2 65.6 mmHg (83-108) L 10/21/21 09:34 ABG pO2 59.7 mm Hg (80.0-90.0) L 10/21/21 21:45 POC ABG HCO3 24.5 10/21/21 09:34 ABG O2 Saturation 88.0 % (95.0-99.0) L 10/21/21 21:45 PT/INR, D-dimer PT 14.8 Sec. (12.2-14.9) 10/20/21 13:30 INR 1.05 (0.87-1.13) 10/20/21 13:30 D-Dimer 579.49 ng/mlDDU (0-234) H 10/21/21 02:16 Abnormal lab findings: Abnormal Labs 10/18/21 10/18/21 10/19/21 16:39 16:39 08:24 Hgb MCV 79 L MCH 26 L MCHC RDW 15.4 H Lymph % (Auto) 7.7 L Lymph # (Auto) 0.6 L Seg Neutrophils % 86.4 H Seg Neutrophils # D-Dimer Heparin Anti-Xa Level ABG pH POC ABG pCO2 POC ABG pO2 ABG pO2 ABG HCO3 ABG O2 Saturation ABG Base Excess ABG Hemoglobin ABG Oxyhemoglobin ABG Sodium ABG Potassium ABG Glucose Oxyhemoglobin Carboxyhemoglobin Sodium 133 L Potassium Chloride 96.6 L Carbon Dioxide 19 L BUN Creatinine Glucose 183 H POC Glucose Hemoglobin A1c Calcium Phosphorus Magnesium Ferritin AST 72 H ALT 58 H Lactate Dehydrogenase Total Creatine Kinase 1484 H C-Reactive Protein Total Protein Albumin 3.6 L Triglycerides Arterial Blood Glucose Arterial Blood Ionized Calcium Urine Creatinine Urine Total Protein Coronavirus (PCR) Positive A 10/19/21 10/19/21 10/19/21 13:41 17:41 21:02 Hgb MCV MCH MCHC RDW Lymph % (Auto) Lymph # (Auto) Seg Neutrophils % Seg Neutrophils # D-Dimer Heparin Anti-Xa Level ABG pH POC ABG pCO2 POC ABG pO2 ABG pO2 ABG HCO3 ABG O2 Saturation ABG Base Excess ABG Hemoglobin ABG Oxyhemoglobin ABG Sodium ABG Potassium ABG Glucose Oxyhemoglobin Carboxyhemoglobin Sodium Potassium Chloride Carbon Dioxide BUN Creatinine Glucose POC Glucose 231 H 228 H 271 H Hemoglobin A1c Calcium Phosphorus Magnesium Ferritin AST ALT Lactate Dehydrogenase Total Creatine Kinase C-Reactive Protein Total Protein Albumin Triglycerides Arterial Blood Glucose Arterial Blood Ionized Calcium Urine Creatinine Urine Total Protein Coronavirus (PCR) 10/19/21 10/19/21 10/19/21 23:52 23:52 23:52 Hgb MCV 79 L MCH 25 L MCHC RDW 15.9 H Lymph % (Auto) 4.9 L Lymph # (Auto) 0.5 L Seg Neutrophils % 89.7 H Seg Neutrophils # 8.9 H D-Dimer Heparin Anti-Xa Level ABG pH POC ABG pCO2 POC ABG pO2 ABG pO2 ABG HCO3 ABG O2 Saturation ABG Base Excess ABG Hemoglobin ABG Oxyhemoglobin ABG Sodium ABG Potassium ABG Glucose Oxyhemoglobin Carboxyhemoglobin Sodium 133 L Potassium Chloride 95.0 L Carbon Dioxide 18 L BUN Creatinine Glucose 217 H POC Glucose Hemoglobin A1c 7.9 H Calcium Phosphorus Magnesium Ferritin AST 94 H ALT 76 H Lactate Dehydrogenase Total Creatine Kinase C-Reactive Protein Total Protein 8.4 H Albumin 3.6 L Triglycerides Arterial Blood Glucose Arterial Blood Ionized Calcium Urine Creatinine Urine Total Protein Coronavirus (PCR) 10/19/21 10/19/21 10/19/21 23:52 23:52 23:52 Hgb MCV MCH MCHC RDW Lymph % (Auto) Lymph # (Auto) Seg Neutrophils % Seg Neutrophils # D-Dimer Heparin Anti-Xa Level ABG pH POC ABG pCO2 POC ABG pO2 ABG pO2 ABG HCO3 ABG O2 Saturation ABG Base Excess ABG Hemoglobin ABG Oxyhemoglobin ABG Sodium ABG Potassium ABG Glucose Oxyhemoglobin Carboxyhemoglobin Sodium Potassium Chloride Carbon Dioxide BUN Creatinine Glucose POC Glucose Hemoglobin A1c Calcium Phosphorus Magnesium Ferritin 786.1 H AST ALT Lactate Dehydrogenase 625 H Total Creatine Kinase C-Reactive Protein 18.80 H Total Protein Albumin Triglycerides Arterial Blood Glucose Arterial Blood Ionized Calcium Urine Creatinine Urine Total Protein Coronavirus (PCR) 10/19/21 10/20/21 10/20/21 23:52 11:25 14:40 Hgb MCV MCH MCHC RDW Lymph % (Auto) Lymph # (Auto) Seg Neutrophils % Seg Neutrophils # D-Dimer Heparin Anti-Xa Level ABG pH 7.282 L POC ABG pCO2 53.7 H POC ABG pO2 57.3 L ABG pO2 ABG HCO3 ABG O2 Saturation ABG Base Excess ABG Hemoglobin ABG Oxyhemoglobin 83.6 L ABG Sodium 132.2 L ABG Potassium 5.5 H ABG Glucose 255 H Oxyhemoglobin Carboxyhemoglobin 0.3 L Sodium Potassium Chloride Carbon Dioxide BUN Creatinine Glucose POC Glucose 174 H Hemoglobin A1c Calcium Phosphorus Magnesium Ferritin AST ALT Lactate Dehydrogenase Total Creatine Kinase C-Reactive Protein 19.20 H Total Protein Albumin Triglycerides Arterial Blood Glucose 255 H Arterial Blood Ionized Calcium Urine Creatinine Urine Total Protein Coronavirus (PCR) 10/20/21 10/20/21 10/20/21 15:49 19:11 22:51 Hgb MCV MCH MCHC RDW Lymph % (Auto) Lymph # (Auto) Seg Neutrophils % Seg Neutrophils # D-Dimer Heparin Anti-Xa Level ABG pH POC ABG pCO2 POC ABG pO2 ABG pO2 ABG HCO3 ABG O2 Saturation ABG Base Excess ABG Hemoglobin ABG Oxyhemoglobin ABG Sodium ABG Potassium ABG Glucose Oxyhemoglobin Carboxyhemoglobin Sodium Potassium Chloride Carbon Dioxide BUN Creatinine Glucose POC Glucose 239 H 198 H 171 H Hemoglobin A1c Calcium Phosphorus Magnesium Ferritin AST ALT Lactate Dehydrogenase Total Creatine Kinase C-Reactive Protein Total Protein Albumin Triglycerides Arterial Blood Glucose Arterial Blood Ionized Calcium Urine Creatinine Urine Total Protein Coronavirus (PCR) 10/20/21 10/21/21 10/21/21 Unknown 02:16 02:16 Hgb MCV 83 L MCH 25 L MCHC 31 L RDW 16.4 H Lymph % (Auto) Lymph # (Auto) Seg Neutrophils % Seg Neutrophils # D-Dimer Heparin Anti-Xa Level ABG pH POC ABG pCO2 POC ABG pO2 ABG pO2 ABG HCO3 ABG O2 Saturation ABG Base Excess ABG Hemoglobin ABG Oxyhemoglobin ABG Sodium ABG Potassium ABG Glucose Oxyhemoglobin Carboxyhemoglobin Sodium 135 L Potassium Chloride 96.5 L Carbon Dioxide BUN Creatinine Glucose 191 H POC Glucose Hemoglobin A1c Calcium 8.3 L Phosphorus 10.40 H Magnesium 3.00 H Ferritin AST 107 H ALT 94 H Lactate Dehydrogenase 970 H Total Creatine Kinase C-Reactive Protein 21.10 H Total Protein Albumin 3.5 L Triglycerides Arterial Blood Glucose Arterial Blood Ionized Calcium Urine Creatinine Urine Total Protein Coronavirus (PCR) 10/21/21 10/21/21 10/21/21 02:16 02:16 03:30 Hgb MCV MCH MCHC RDW Lymph % (Auto) Lymph # (Auto) Seg Neutrophils % Seg Neutrophils # D-Dimer 579.49 H Heparin Anti-Xa Level 1.60 H ABG pH POC ABG pCO2 POC ABG pO2 ABG pO2 ABG HCO3 ABG O2 Saturation ABG Base Excess ABG Hemoglobin ABG Oxyhemoglobin ABG Sodium ABG Potassium ABG Glucose Oxyhemoglobin Carboxyhemoglobin Sodium 136 L Potassium 7.0 H* D Chloride Carbon Dioxide BUN 43 H Creatinine 2.3 H D Glucose 210 H POC Glucose Hemoglobin A1c Calcium 8.3 L Phosphorus Magnesium Ferritin 1550.0 H AST 206 H ALT 194 H Lactate Dehydrogenase Total Creatine Kinase C-Reactive Protein Total Protein Albumin 3.3 L Triglycerides Arterial Blood Glucose Arterial Blood Ionized Calcium Urine Creatinine Urine Total Protein Coronavirus (PCR) 10/21/21 10/21/21 10/21/21 04:40 04:51 09:15 Hgb MCV MCH MCHC RDW Lymph % (Auto) Lymph # (Auto) Seg Neutrophils % Seg Neutrophils # D-Dimer Heparin Anti-Xa Level ABG pH 7.184 L* POC ABG pCO2 POC ABG pO2 ABG pO2 60.2 L ABG HCO3 ABG O2 Saturation 86.6 L ABG Base Excess -4.3 L ABG Hemoglobin 12.1 L ABG Oxyhemoglobin ABG Sodium ABG Potassium ABG Glucose Oxyhemoglobin 85.2 L Carboxyhemoglobin Sodium Potassium Chloride Carbon Dioxide BUN Creatinine Glucose POC Glucose 204 H 177 H Hemoglobin A1c Calcium Phosphorus Magnesium Ferritin AST ALT Lactate Dehydrogenase Total Creatine Kinase C-Reactive Protein Total Protein Albumin Triglycerides Arterial Blood Glucose Arterial Blood Ionized Calcium Urine Creatinine Urine Total Protein Coronavirus (PCR) 10/21/21 10/21/21 10/21/21 09:34 10:53 11:27 Hgb MCV MCH MCHC RDW Lymph % (Auto) Lymph # (Auto) Seg Neutrophils % Seg Neutrophils # D-Dimer Heparin Anti-Xa Level ABG pH 7.162 L POC ABG pCO2 69.9 H POC ABG pO2 65.6 L ABG pO2 ABG HCO3 ABG O2 Saturation ABG Base Excess ABG Hemoglobin ABG Oxyhemoglobin 89.7 L ABG Sodium ABG Potassium 6.5 H ABG Glucose 190 H Oxyhemoglobin Carboxyhemoglobin 0.4 L Sodium Potassium Chloride Carbon Dioxide BUN Creatinine Glucose POC Glucose 183 H 184 H Hemoglobin A1c Calcium Phosphorus Magnesium Ferritin AST ALT Lactate Dehydrogenase Total Creatine Kinase C-Reactive Protein Total Protein Albumin Triglycerides Arterial Blood Glucose 190 H Arterial Blood Ionized Calcium 4.2 L Urine Creatinine Urine Total Protein Coronavirus (PCR) 10/21/21 10/21/21 10/21/21 12:00 12:39 16:20 Hgb MCV MCH MCHC RDW Lymph % (Auto) Lymph # (Auto) Seg Neutrophils % Seg Neutrophils # D-Dimer Heparin Anti-Xa Level ABG pH 7.183 L* POC ABG pCO2 POC ABG pO2 ABG pO2 ABG HCO3 26.2 H ABG O2 Saturation 94.6 L ABG Base Excess -3.6 L ABG Hemoglobin 13.1 L ABG Oxyhemoglobin ABG Sodium ABG Potassium ABG Glucose Oxyhemoglobin 93.0 L Carboxyhemoglobin Sodium Potassium 6.7 H* Chloride Carbon Dioxide BUN 54 H Creatinine 2.8 H Glucose 190 H POC Glucose 208 H Hemoglobin A1c Calcium 8.0 L Phosphorus Magnesium Ferritin AST ALT Lactate Dehydrogenase Total Creatine Kinase C-Reactive Protein Total Protein Albumin Triglycerides Arterial Blood Glucose Arterial Blood Ionized Calcium Urine Creatinine Urine Total Protein Coronavirus (PCR) 10/21/21 10/21/21 10/21/21 20:46 21:45 23:16 Hgb MCV MCH MCHC RDW Lymph % (Auto) Lymph # (Auto) Seg Neutrophils % Seg Neutrophils # D-Dimer Heparin Anti-Xa Level ABG pH 7.193 L* POC ABG pCO2 POC ABG pO2 ABG pO2 59.7 L ABG HCO3 27.0 H ABG O2 Saturation 88.0 L ABG Base Excess -2.2 L ABG Hemoglobin 11.1 L ABG Oxyhemoglobin ABG Sodium ABG Potassium ABG Glucose Oxyhemoglobin 86.5 L Carboxyhemoglobin Sodium Potassium Chloride Carbon Dioxide BUN Creatinine Glucose POC Glucose 192 H 204 H Hemoglobin A1c Calcium Phosphorus Magnesium Ferritin AST ALT Lactate Dehydrogenase Total Creatine Kinase C-Reactive Protein Total Protein Albumin Triglycerides Arterial Blood Glucose Arterial Blood Ionized Calcium Urine Creatinine Urine Total Protein Coronavirus (PCR) 10/21/21 10/21/21 10/21/21 Unknown Unknown Unknown Hgb MCV MCH MCHC RDW Lymph % (Auto) Lymph # (Auto) Seg Neutrophils % Seg Neutrophils # D-Dimer Heparin Anti-Xa Level 1.04 H 0.82 H ABG pH POC ABG pCO2 POC ABG pO2 ABG pO2 ABG HCO3 ABG O2 Saturation ABG Base Excess ABG Hemoglobin ABG Oxyhemoglobin ABG Sodium ABG Potassium ABG Glucose Oxyhemoglobin Carboxyhemoglobin Sodium Potassium Chloride Carbon Dioxide BUN Creatinine Glucose POC Glucose Hemoglobin A1c Calcium Phosphorus Magnesium Ferritin AST ALT Lactate Dehydrogenase Total Creatine Kinase C-Reactive Protein Total Protein Albumin Triglycerides Arterial Blood Glucose Arterial Blood Ionized Calcium Urine Creatinine 153.1 H Urine Total Protein 173 H Coronavirus (PCR) 10/22/21 10/22/21 10/22/21 02:50 02:50 02:50 Hgb 11.2 L MCV MCH MCHC RDW Lymph % (Auto) Lymph # (Auto) Seg Neutrophils % Seg Neutrophils # D-Dimer Heparin Anti-Xa Level ABG pH POC ABG pCO2 POC ABG pO2 ABG pO2 ABG HCO3 ABG O2 Saturation ABG Base Excess ABG Hemoglobin ABG Oxyhemoglobin ABG Sodium ABG Potassium ABG Glucose Oxyhemoglobin Carboxyhemoglobin Sodium Potassium 6.0 H Chloride 95.4 L Carbon Dioxide BUN 51 H Creatinine 3.2 H Glucose 227 H POC Glucose Hemoglobin A1c Calcium 7.7 L Phosphorus 9.30 H Magnesium 2.50 H Ferritin AST 239 H ALT 199 H Lactate Dehydrogenase Total Creatine Kinase C-Reactive Protein Total Protein Albumin 3.2 L Triglycerides 390 H Arterial Blood Glucose Arterial Blood Ionized Calcium Urine Creatinine Urine Total Protein Coronavirus (PCR) 10/22/21 04:42 Hgb MCV MCH MCHC RDW Lymph % (Auto) Lymph # (Auto) Seg Neutrophils % Seg Neutrophils # D-Dimer Heparin Anti-Xa Level ABG pH POC ABG pCO2 POC ABG pO2 ABG pO2 ABG HCO3 ABG O2 Saturation ABG Base Excess ABG Hemoglobin ABG Oxyhemoglobin ABG Sodium ABG Potassium ABG Glucose Oxyhemoglobin Carboxyhemoglobin Sodium Potassium Chloride Carbon Dioxide BUN Creatinine Glucose POC Glucose 227 H Hemoglobin A1c Calcium Phosphorus Magnesium Ferritin AST ALT Lactate Dehydrogenase Total Creatine Kinase C-Reactive Protein Total Protein Albumin Triglycerides Arterial Blood Glucose Arterial Blood Ionized Calcium Urine Creatinine Urine Total Protein Coronavirus (PCR)
[2021-10-22] MEDS ORDERED: INSULIN GLARGINE 100 UNITS/ML SUB-Q SCH ×2 (08:41→08:45)
[2021-10-22] MEDS: SENNOSIDES ORAL LIQD 8.8 MG/5 ML ORAL LIQD FEEDTUBE SCH ×2 (09:29→21:25)
[2021-10-22] MEDS ORDERED: SODIUM CHLORIDE 0.9% 100 ML IV PRN (11:48)
[2021-10-22] MEDS: CALCIUM ACETATE 667 MG CAP PO SCH ×2 (14:38→21:25)
[2021-10-22] MEDS: methylPREDNISolone Sod Succinate 125 MG/2 ML INJ IV SCH ×2 (14:39→21:25)
--- NOTE | 2021-10-22 15:20 | Progress Note ---
<JANNACANDACE H. - Last Filed: 10/22/21 15:36> Assessment and Plan Assessment and plan: This is a 26-year-old male with HTN, DM, asthma and gout admitted with COVID-19 pneumonia and pulmonary embolism. Neuro: Self-reported anxiety -S/p Precedex drip and Ativan as needed -Currently sedated on propofol, fentanyl and Versed -Noted Precedex drip due to ventilatory dyssynchrony -RASS goal -2 to 3 and vent synchrony -Bilateral soft restraints in place for safety -Avoid delirium -Maintain sleep-wake cycle Cardio: Cardiomegaly on cxr, h/o HTN -CTA chest showed mild cardiomegaly without evidence of right heart strain -Hold home antihypertensive regimen -Blood pressure monitoring per protocol -Christi david 10/21 -Echo shows Normal echocardiogram, LV EF within normal range of 50 to 55%, mild diastolic dysfunction evidenced by impaired relaxation pattern, no pericardial effusion Respiratory: Acute hypoxic respiratory failure, h/o asthma -S/p BiPAP and OptiFlow/nonrebreather -CCM consulted, appreciate recommendations -Intubated on 10/20 with 8.00 ETT at 24 cm at the right lip -VAP bundle -CXR and ABG noted -AM vent settings: Assist control rate 18, tidal volume 500, PEEP 18 FiO2 100% -See RT notes for titration -Daily CXR and ABGs GI: Morbid obesity, hepatic steatosis, transaminitis -CTA chest showed hepatic steatosis -Nutrition consult for tube feeding -BR: Senokot -PPI -24-hour +1644 mL -Acute hepatitis panel negative : Rhabdomyolysis, Severe hyperkalemia, Acute renal injury -Cr/BUN 0.8/20 and increased to 2.3/43 10/21 prompting renal consult and initiation of dialysis -nephrology consulted, appreciate recommendations -renal US in progress -10/21 FeNa at 0.4 indicating prerenal -HD to be initiated 10/21 -HD per nephrology -Strict intake and output with Scott catheter -Intervene with electrolytes as needed -S/p IV fluids for 24 hours -Trend BMP -Phosphate binder ID: COVID-19 pneumonia and influenza -CTA chest showed bilateral lung infiltrates concerning for atypical pneumonia -Infectious disease consulted, appreciate recommendations -Droplet/isolation precautions -IV dexamethasone for 10 days () -Twice daily dosing for morbid obesity -S/p Actemra 10/20/2021 -Tamiflu for 5 days () -Procal 0.49 -Antibiotic therapy: Azithromycin (), Rocephin (10/19 -10/23) -S/p IV remdesivir x1 on 10/20 -Trend COVID-19 inflammatory markers -Anticoagulation for pulmonary embolism Endo: Hyperglycemia, h/o DM -SSI -Accu-Cheks every 6, high-dose scale and long-acting insulin -Avoid hypoglycemia -Hemoglobin A1c 7.9 Heme: Pulmonary embolism -CTA chest showed pulmonary embolus without evidence of right heart strain -Systemic anticoagulation with heparin drip -Bilateral lower extremity SCDs while in bed -Trend CBC -Transfuse for hemoglobin less than 7 The high probability of a clinically significant, sudden or life threatening deterioration of the [multi] system(s) required my full and direct attention, intervention and personal management. The aggregate critical care time was [60] minutes. This time is in addition to time spent performing reported procedures but includes the following: [x] Data Review and interpretation [x] Patient assessment and monitoring of vital signs [x] Documentation [x] Medication orders and management Disposition Plan: icu Total Time Spent with Patient (Minutes): 60 History Interval history: This is a 26-year-old male with HTN, DM, asthma and gout who presented to the emergency department on 10/18 with complaints of increasing shortness of breath over the past 3 days and states that he was diagnosed with Covid and flu couple days ago. Patient was given Zithromax and steroids outpatient however his anxiety and shortness of breath increased over the past 3 days prompting a visit to the emergency department. In the emergency department patient's oxygen saturations were 90% on nonrebreather and CT chest showed bilateral pulmonary embolism. Of note he is not vaccinated against COVID-19. Patient was admitted to the hospitalist service with consults to infectious disease. 10/19: Patient is currently anxious and restless with moderate respiratory distress. He is hypoxic and needing nasal cannula to and NRB alternately. BP and pulse stable. Patient has dry cough. Afebrile. No acute GI symptoms currently. 10/20: Patient was a code met from the floor to ICU. Patient was initially placed on BiPAP however due to his anxiety he was unable to tolerate and ultimately was intubated. Patient is currently sedated on fentanyl and Versed. Central line and Scott catheter placed today. Bilateral respirations in place. Family updated at bedside 10/21: BUN/Cr increase noted and nephro consulted. Nephro will like to start HD. Femoral vascath placement delayed d/t elevated aPTT and renal US. [facility] made ch anges to vent. Hyperkalemia medically treated. and mother updated at bedside by [employer]. Vascath and christi placed. HD RN aware 10/22: HD planned for today, steroids changed to Solu-Medrol 60 every 8 and long-acting insulin. Patient is stacking breaths and SPO2 in the upper 80s. We will add Precedex for increased sedation. Increasing FiO2 due to desaturation overnight. Hospitalist Physical - Constitutional Vitals: Temp Pulse Resp BP Pulse Ox 98.6 F 85 17 124/75 89 10/22/21 12:00 10/22/21 14:00 10/22/21 14:00 10/22/21 14:00 10/22/21 14:00 General appearance: Present: no acute distress, well-nourished, obese (Morbid obese with BMI 47), other (sedated) - EENT Eyes: Present: PERRL, EOM intact ENT: hearing intact, clear oral mucosa, dentition normal - Neck Neck: Present: normal ROM - Respiratory Respiratory effort: normal Respiratory: bilateral: diminished - Cardiovascular Rhythm: regular Heart Sounds: Present: S1 & S2. Absent: systolic murmur, diastolic murmur - Extremities Extremities: no ischemia, pulses intact, pulses symmetrical, normal temperature, normal color Peripheral Pulses: within normal limits - Abdominal General gastrointestinal: soft, non-tender, non-distended, normal bowel sounds - Integumentary Integumentary: Present: warm, dry - Psychiatric Psychiatric: other (sedated) - Neurologic Neurologic: other (sedated) - Allied Health Allied health notes reviewed: nursing, RT, social work HEART Score - HEART Score EKG: Normal Age: < 45 Risk factors: 1-2 risk factors Troponin: Troponin T < 0.010 ng/mL (0.00-0.029) 10/18/21 16:39 Troponin: < normal limit - Critical Actions Critical Actions: 0-3 pts:0.9-1.7%risk of adverse cardiac event.Candidate for discharge Results - Labs CBC & Chem 7: 10/22/21 02:50 10/22/21 02:50 Labs: Laboratory Last Values WBC 6.9 K/mm3 (4.5-11.0) 10/21/21 02:16 RBC 4.90 M/mm3 (3.65-5.03) 10/21/21 02:16 Hgb 11.2 gm/dl (11.8-15.2) L 10/22/21 02:50 Hct 36.6 % (35.5-45.6) 10/22/21 02:50 MCV 83 fl (84-94) L 10/21/21 02:16 MCH 25 pg (28-32) L 10/21/21 02:16 MCHC 31 % (32-34) L 10/21/21 02:16 RDW 16.4 % (13.2-15.2) H 10/21/21 02:16 Plt Count 372 K/mm3 (140-440) 10/22/21 02:50 Lymph % (Auto) 4.9 % (13.4-35.0) L 10/19/21 23:52 Delta % (Auto) 5.3 % (0.0-7.3) 10/19/21 23:52 Eos % (Auto) 0.0 % (0.0-4.3) 10/19/21 23:52 Baso % (Auto) 0.1 % (0.0-1.8) 10/19/21 23:52 Lymph # (Auto) 0.5 K/mm3 (1.2-5.4) L 10/19/21 23:52 Delta # (Auto) 0.5 K/mm3 (0.0-0.8) 10/19/21 23:52 Eos # (Auto) 0.0 K/mm3 (0.0-0.4) 10/19/21 23:52 Baso # (Auto) 0.0 K/mm3 (0.0-0.1) 10/19/21 23:52 Seg Neutrophils % 89.7 % (40.0-70.0) H 10/19/21 23:52 Seg Neutrophils # 8.9 K/mm3 (1.8-7.7) H 10/19/21 23:52 PT 14.8 Sec. (12.2-14.9) 10/20/21 13:30 INR 1.05 (0.87-1.13) 10/20/21 13:30 APTT 36.1 Sec. (24.2-36.6) 10/20/21 13:30 D-Dimer 579.49 ng/mlDDU (0-234) H 10/21/21 02:16 Heparin Anti-Xa Level 0.48 U.I./ml (0.3-0.7) 10/22/21 02:50 ABG pH 7.193 pH Units (7.350-7.450) L* 10/21/21 21:45 POC ABG pCO2 69.9 mmHg (32.0-48.0) H 10/21/21 09:34 ABG pCO2 71.8 mm Hg 10/21/21 21:45 POC ABG pO2 65.6 mmHg (83-108) L 10/21/21 09:34 ABG pO2 59.7 mm Hg (80.0-90.0) L 10/21/21 21:45 POC ABG HCO3 24.5 10/21/21 09:34 ABG HCO3 27.0 mmol/L (20.0-26.0) H 10/21/21 21:45 ABG O2 Saturation 88.0 % (95.0-99.0) L 10/21/21 21:45 ABG O2 Content 13.5 (0.0-44) 10/21/21 21:45 POC ABG Base Excess -5.4 10/21/21 09:34 ABG Base Excess -2.2 mmol/L (-2.0-3.0) L 10/21/21 21:45 ABG Hemoglobin 11.1 gm/dl (14.0-18.0) L 10/21/21 21:45 ABG Oxyhemoglobin 89.7 (94-98) L 10/21/21 09:34 ABG Carboxyhemoglobin 1.1 % (0.0-5.0) 10/21/21 21:45 ABG Methemoglobin 0.6 % (0.0-1.5) 10/21/21 21:45 ABG Sodium 138.1 mmol/L (136.0-145.0) 10/21/21 09:34 ABG Potassium 6.5 mmol/L (3.40-4.50) H 10/21/21 09:34 ABG Chloride 102.0 mmol/L (98-107) 10/21/21 09:34 ABG Glucose 190 mg/dL (65-95) H 10/21/21 09:34 Oxyhemoglobin 86.5 % (95.0-99.0) L 10/21/21 21:45 Carboxyhemoglobin 0.4 (0.5-1.5) L 10/21/21 09:34 FiO2 21 % 10/21/21 21:45 FiO2 % 100.0 10/21/21 09:34 Sodium 137 mmol/L (137-145) 10/22/21 02:50 Potassium 6.0 mmol/L (3.6-5.0) H 10/22/21 02:50 Chloride 95.4 mmol/L (98-107) L 10/22/21 02:50 Carbon Dioxide 23 mmol/L (22-30) 10/22/21 02:50 Anion Gap 25 mmol/L 10/22/21 02:50 BUN 51 mg/dL (9-20) H 10/22/21 02:50 Creatinine 3.2 mg/dL (0.8-1.3) H 10/22/21 02:50 Estimated GFR 28 ml/min 10/22/21 02:50 BUN/Creatinine Ratio 16 % 10/22/21 02:50 Glucose 227 mg/dL (75-100) H 10/22/21 02:50 POC Glucose 256 mg/dL (70-105) H 10/22/21 11:34 Hemoglobin A1c 7.9 % (4-6) H 10/19/21 23:52 Lactic Acid 1.40 mmol/L (0.7-2.0) 10/18/21 16:39 Calcium 7.7 mg/dL (8.4-10.2) L 10/22/21 02:50 Phosphorus 9.30 mg/dL (2.5-4.5) H 10/22/21 02:50 Magnesium 2.50 mg/dL (1.7-2.3) H 10/22/21 02:50 Ferritin 1550.0 ng/mL (30.0-300.0) H 10/21/21 02:16 Total Bilirubin 0.20 mg/dL (0.1-1.2) 10/22/21 02:50 AST 239 units/L (5-40) H 10/22/21 02:50 ALT 199 units/L (7-56) H 10/22/21 02:50 Alkaline Phosphatase 74 units/L (35-129) 10/22/21 02:50 Lactate Dehydrogenase 970 units/L (91-180) H 10/21/21 02:16 Total Creatine Kinase 1484 units/L (55-170) H 10/18/21 16:39 CK-MB (CK-2) 3.3 ng/mL (0.0-4.0) 10/18/21 16:39 CK-MB (CK-2) Rel Index 0.2 (0-4) 10/18/21 16:39 Troponin T < 0.010 ng/mL (0.00-0.029) 10/18/21 16:39 C-Reactive Protein 21.10 mg/dL (0.00-1.30) H 10/21/21 02:16 Total Protein 7.0 g/dL (6.3-8.2) 10/22/21 02:50 Albumin 3.2 g/dL (3.9-5) L 10/22/21 02:50 Albumin/Globulin Ratio 0.8 % 10/22/21 02:50 Triglycerides 390 mg/dL (2-149) H 10/22/21 02:50 Lipase 15 units/L (13-60) 10/18/21 16:39 Procalcitonin 0.49 ng/mL (<0.15) 10/19/21 23:52 Arterial Blood Glucose 190 mg/dL (65-95) H 10/21/21 09:34 Arterial Blood Ionized Calcium 4.2 mg/dL (4.6-5.3) L 10/21/21 09:34 Urine Color Yellow (Yellow) 10/18/21 22:26 Urine Turbidity Clear (Clear) 10/18/21 22:26 Urine pH 6.0 (5.0-7.0) 10/18/21 22:26 Ur Specific [place] 1.025 (1.003-1.030) 10/18/21 22:26 Urine Protein 100 mg/dl mg/dL (Negative) 10/18/21 22:26 Urine Glucose (UA) Neg mg/dL (Negative) 10/18/21 22:26 Urine Ketones Neg mg/dL (Negative) 10/18/21 22:26 Urine Blood Sm (Negative) 10/18/21 22:26 Urine Nitrite Neg (Negative) 10/18/21 22:26 Urine Bilirubin Neg (Negative) 10/18/21 22:26 Urine Urobilinogen < 2.0 mg/dL (<2.0) 10/18/21 22:26 Ur Leukocyte Esterase Neg (Negative) 10/18/21 22:26 Urine WBC (Auto) < 1.0 /HPF (0.0-6.0) 10/18/21 22: Urine RBC (Auto) < 1.0 /HPF (0.0-6.0) 10/18/21 22: U Epithel Cells (Auto) < 1.0 /HPF (0-13.0) 10/18/21 22:26 Urine Bacteria (Auto) 1+ /HPF (Negative) 10/18/21 22:26 Urine Creatinine 153.1 mg/dL (0.1-20.0) H 10/21/21 Unknown Urine Sodium 31 mmol/L 10/21/21 Unknown Urine Total Protein 173 mg/dL (5-11.8) H 10/21/21 Unknown Coronavirus (PCR) Positive (Negative) A 10/19/21 08:24 Hepatitis A IgM Ab Non-reactive (NonReactive) 10/19/21 23:52 Hep Bs Antigen Nonreactive (Negative) 10/19/21 23:52 Hep B Core IgM Ab Non-reactive (NonReactive) 10/19/21 23:52 Hepatitis C Antibody Non-reactive (NonReactive) 10/19/21 23:52 Microbiology: Microbiology 10/20/21 14:50 Tracheal Aspirate Sputum Culture - Preliminary 10/18/21 16:39 Peripheral/Venous Blood Culture - Preliminary NO GROWTH AFTER 72 HOURS 10/18/21 16:47 Peripheral/Venous Blood Culture - Preliminary NO GROWTH AFTER 72 HOURS Scott/IV: Voiding Method Indwelling Catheter Active Medications - Current Medications Current Medications: Generic Name Dose Route Start Last Admin Trade Name Freq PRN Reason Stop Dose Admin Acetaminophen 650 mg 10/20/21 13:30 Acetaminophen 325 Mg/10.15 Ml Oral Liqd Unit Dose FEEDTUBE Q6H PRN Pain MILD(1-3)/Fever >100.5/HUSSEIN Al Hydrox/Mg Hydrox/Simethicone 30 ml 10/20/21 13:30 Alum-Mag Hydroxide-Simethicone 839-713-14cm/5ml Oral Liqd 30 Ml PO Q4H PRN Indigestion Lipase/Protease/Amylase 1 each 10/20/21 15:15 Lipase 10,500/Protease 25,000/Amylase 43,750 (Units) Dr Johnson FEEDTUBE PRN PRN For Clogged Feeding Tube Bisacodyl 10 mg 10/20/21 13:30 Bisacodyl 10 Mg Rect Supp NV QDAY PRN constipation unrelieved by MOM Calcium Acetate 667 mg 10/22/21 14:00 10/22/21 14:38 Calcium Acetate 667 Mg Cap PO 667 mg TID ALBIN Administration Dextrose 50 ml 10/20/21 13:30 Dextrose 50% In Water (25gm) 50 Ml Syringe IV Q30MIN PRN Hypoglycemia Protocol Famotidine 10 mg 10/21/21 10:00 10/22/21 09:28 Famotidine 20 Mg/2 Ml Inj IV 10 mg BID ALBIN Administration Fentanyl 50 mcg 10/20/21 13:25 Fentanyl 100 Mcg/2 Ml Inj IV Q10MIN PRN ANALGESIA Heparin Sodium (Porcine) 5,000 unit 10/20/21 10:41 10/21/21 17:19 Heparin 10,000 Units/10 Ml Vial IV 5,000 unit Q6H PRN Administration Anti-Xa Assay < 0.1 units/ml Hydrophilic Ointment 1 applic 10/20/21 13:25 Lip Therapy Vaseline TP Q2HR PRN Dry Lips Ceftriaxone Sodium 2 gm in 100 mls @ 200 mls/hr 10/19/21 20:00 10/21/21 21:05 Rocephin/Ns 2 Gm/100 Ml IV 10/22/21 20:29 200 mls/hr Q24H ALBIN Administration Azithromycin 500 mg in 250 mls @ 250 mls/hr 10/19/21 21:00 10/21/21 21:05 Zithromax/Ns IV 10/22/21 21:59 250 mls/hr Q24H ALBIN Administration Heparin Sodium/Sodium Chloride 25,000 unit in 500 mls @ 30 mls/hr 10/20/21 20:00 10/22/21 05:44 Heparin/ 0.45% Nacl-25,000 Unit/500 Ml IV 750 units/hr TITR ALBIN 15 mls/hr Titration Protocol 1,500 UNITS/HR Midazolam HCl 100 mg/ Sodium 100 mls @ 2 mls/hr 10/20/21 14:00 10/21/21 21:18 Chloride IV 2 mg/hr TITR ALBIN 2 mls/hr Administration Protocol 2 MG/HR Fentanyl Citrate 2,000 mcg in 100 mls @ 7.938 mls/hr 10/20/21 14:00 10/22/21 14:38 Fentanyl Drip Premix IV 3 mcg/kg/hr TITR ALBIN 23.814 mls/hr Administration Protocol 1 MCG/KG/HR Propofol 1,000 mg in 100 mls @ 4.763 mls/hr 10/20/21 14:00 10/22/21 14:39 Diprivan 10 Mg/Ml IV 15 mcg/kg/min TITR ALBIN 14.288 mls/hr Administration Protocol 5 MCG/KG/MIN Sodium Chloride 1,000 mls @ 1 mls/hr 10/20/21 14:30 Nacl 0.9% 500 Ml IV DIRECT PRN ARTERIAL LINE FLUSH Sodium Chloride 100 mls @ 999 mls/hr 10/21/21 09:19 Nacl 0.9% IV MAYLIN PRN Hypotension Sodium Chloride 100 mls @ 999 mls/hr 10/22/21 11:48 Nacl 0.9% IV MAYLIN PRN Hypotension Dexmedetomidine HCl 400 mcg/ 104 mls @ 8.258 mls/hr 10/22/21 16:00 Sodium Chloride IV TITRATE [facility] Protocol 0.2 MCG/KG/HR Insulin Glargine 20 units 10/22/21 08:45 Insulin Glargine 100 Units/Ml SUB-Q QHS [facility] Insulin Human Lispro 0 unit 10/20/21 12:00 10/22/21 11:47 Insulin Lispro 100 Unit/Ml SUB-Q 3 unit Q6HR [facility] Administration Protocol Methylprednisolone Sodium Succinate 60 mg 10/22/21 14:00 10/22/21 14:39 Methylprednisolone Sod Succinate 125 Mg/2 Ml Inj IV 60 mg Q8HR ALBIN Administration Midazolam HCl 2 mg 10/20/21 13:25 10/20/21 14:25 Midazolam 2 Mg/2 Ml Inj IV 2 mg Q10MIN PRN Administration Sedation Multi-Ingred Cream/Lotion/Oil/Oint 1 applic 10/20/21 13:25 Mineral Oil/Petrolatum, White Ophth Oint 3.5 Gm OU Q4HR PRN Dry Eye(s) Ondansetron HCl 4 mg 10/19/21 04:21 Ondansetron 4 Mg/2 Ml Inj IV Q8H PRN Nausea And Vomiting Oseltamivir Phosphate 30 mg 10/21/21 22:00 10/21/21 21:18 Oseltamivir Phosphate 30 Mg Cap PO 10/23/21 22:01 30 mg Q24H ALBIN Administration Promethazine HCl 25 mg 10/19/21 04:38 10/20/21 05:06 Promethazine 25 Mg Tab PO 25 mg Q6H PRN Administration Nausea And Vomiting Senna 8.8 mg 10/20/21 22:00 10/22/21 09:29 Sennosides Oral Liqd 8.8 Mg/5 Ml Oral Liqd FEEDTUBE 8.8 mg BID ALBIN Administration Simple Syrup 15 ml 10/20/21 15:15 Simple Syrup 15 Ml FEEDTUBE PRN PRN Hypoglycemia Simple Syrup 30 ml 10/20/21 15:15 Simple Syrup 15 Ml FEEDTUBE PRN PRN Hypoglycemia Sodium Bicarbonate 325 mg 10/20/21 15:15 Sodium Bicarbonate 325 Mg Tab FEEDTUBE PRN PRN For Clogged Feeding Tube Sodium Chloride 10 ml 10/19/21 10:00 10/22/21 09:28 Sodium Chloride 0.9% 10 Ml Flush Syringe IV 10 ml BID ALBIN Administration Sodium Chloride 10 ml 10/19/21 04:26 Sodium Chloride 0.9% 10 Ml Flush Syringe IV PRN PRN flush prior to & after IV med Nutrition/Malnutrition Assess - Dietary Evaluation Nutrition/Malnutrition Findings: Nutrition Notes Start: 10/19/21 14:34 Freq: Status: Active Protocol: Document 10/21/21 10:33 REESE (Rec: 10/21/21 10:53 REESE [id number]) Nutrition Notes Initial or Follow up Reassessment Current Diagnosis Diabetes,Hypertension, Respiratory Failure Other Pertinent Diagnosis COVID-19 pneu, hepatic steatosis, asthma, gout, pulmonary embolism Current Diet TF - Glucerna 1.2 at 108ml/hr Labs/Tests Na 136 K 7 BUN 43 Cr 2.3 BG 210 Phos 10.4 Mg 3 Pertinent Medications Decadron, Heparin gtt, Propofol at 14.288ml/hr ( provides 377 kcal), Senokot Height 6 ft Weight 158.757 kg [place] Body Weight (kg) 80.90 BMI 47.5 Weight Status Morbidly Obese Subjective/Other Information Pt remains on vent support. RN unable to locate Glucerna TF formula, so started Nepro instead. Burn Absent Trauma Absent Minimum of two criteria No #1 Nutrition Diagnosis Inadequate energy intake, Inadequate oral intake Comments: CHANGED Etiology [facility] ventilation As Evidenced by Signs and Symptoms pt NPO Diagnosis Progress(for reassessment Continues documentation) Is patient on ventilator? Yes Is Patient Ambulatory and/or Out of Bed No REE-([facility]-confined to bed) [phone] Calculation Used for Recommendations 70-80% energy needs Additional Notes Pro needs 1.3g/kg adjBW: 156g/ day Fluid needs 1ml/kcal Nutrition Intervention Nutrition Support: Change TF formula to Nepro at 53ml/hr. Provide 230ml water flush q4h. Kcal 2,290 Protein (gm) 103 Carbohydrates (gm) 205 Fat (gm) 122 Fluid (mL) 925 Fiber (gm) 16 Goal #1 TF tolerance Goal #2 TF to meet nutrient needs as best possible Follow-Up By: 10/24/21 Additional Comments F/U: TF tolerance, renal function, vent status, propofol <WALLY MEHTA R - Last Filed: 10/22/21 19:53> History Interval history: Attending note: Patient seen and examined by me today. Discussed with the nurse practitioner. Desaturated this morning and increased FiO2 from 80 to 100%. Patient remains deeply sedated and on vent. Chest x-ray shows diffuse bilateral pulmonary edema versus ARDS. Echocardiogram is fairly unremarkable LV size and function normal, EF 50 to 55%, normal wall motion, mild diastolic dysfunction, RV function [place] l, no right heart strain. Potassium 6. Scheduled for hemodialysis again today. Has a low-grade fever of 100.5. BP/HR stable. Prognosis remains guarded. Discussed with the as well as mother in ICU. Hospitalist Physical - Constitutional Vitals: Temp Pulse Resp BP Pulse Ox 99.4 F 84 18 112/69 97 10/22/21 16:20 10/22/21 19:15 10/22/21 18:15 10/22/21 19:15 10/22/21 18:15 HEART Score - HEART Score Troponin: Troponin T < 0.010 ng/mL (0.00-0.029) 10/18/21 16:39 Results - Labs CBC & Chem 7: 10/22/21 02:50 10/22/21 02:50 Labs: Laboratory Last Values WBC 6.9 K/mm3 (4.5-11.0) 10/21/21 02:16 RBC 4.90 M/mm3 (3.65-5.03) 10/21/21 02:16 Hgb 11.2 gm/dl (11.8-15.2) L 10/22/21 02:50 Hct 36.6 % (35.5-45.6) 10/22/21 02:50 MCV 83 fl (84-94) L 10/21/21 02:16 MCH 25 pg (28-32) L 10/21/21 02:16 MCHC 31 % (32-34) L 10/21/21 02:16 RDW 16.4 % (13.2-15.2) H 10/21/21 02:16 Plt Count 372 K/mm3 (140-440) 10/22/21 02:50 Lymph % (Auto) 4.9 % (13.4-35.0) L 10/19/21 23:52 Delta % (Auto) 5.3 % (0.0-7.3) 10/19/21 23:52 Eos % (Auto) 0.0 % (0.0-4.3) 10/19/21 23:52 Baso % (Auto) 0.1 % (0.0-1.8) 10/19/21 23:52 Lymph # (Auto) 0.5 K/mm3 (1.2-5.4) L 10/19/21 23:52 Delta # (Auto) 0.5 K/mm3 (0.0-0.8) 10/19/21 23:52 Eos # (Auto) 0.0 K/mm3 (0.0-0.4) 10/19/21 23:52 Baso # (Auto) 0.0 K/mm3 (0.0-0.1) 10/19/21 23:52 Seg Neutrophils % 89.7 % (40.0-70.0) H 10/19/21 23:52 Seg Neutrophils # 8.9 K/mm3 (1.8-7.7) H 10/19/21 23:52 PT 14.8 Sec. (12.2-14.9) 10/20/21 13:30 INR 1.05 (0.87-1.13) 10/20/21 13:30 APTT 36.1 Sec. (24.2-36.6) 10/20/21 13:30 D-Dimer 579.49 ng/mlDDU (0-234) H 10/21/21 02:16 Heparin Anti-Xa Level 0.48 U.I./ml (0.3-0.7) 10/22/21 02:50 ABG pH 7.193 pH Units (7.350-7.450) L* 10/21/21 21:45 POC ABG pCO2 69.9 mmHg (32.0-48.0) H 10/21/21 09:34 ABG pCO2 71.8 mm Hg 10/21/21 21:45 POC ABG pO2 65.6 mmHg (83-108) L 10/21/21 09:34 ABG pO2 59.7 mm Hg (80.0-90.0) L 10/21/21 21:45 POC ABG HCO3 24.5 10/21/21 09:34 ABG HCO3 27.0 mmol/L (20.0-26.0) H 10/21/21 21:45 ABG O2 Saturation 88.0 % (95.0-99.0) L 10/21/21 21:45 ABG O2 Content 13.5 (0.0-44) 10/21/21 21:45 POC ABG Base Excess -5.4 10/21/21 09:34 ABG Base Excess -2.2 mmol/L (-2.0-3.0) L 10/21/21 21:45 ABG Hemoglobin 11.1 gm/dl (14.0-18.0) L 10/21/21 21:45 ABG Oxyhemoglobin 89.7 (94-98) L 10/21/21 09:34 ABG Carboxyhemoglobin 1.1 % (0.0-5.0) 10/21/21 21:45 ABG Methemoglobin 0.6 % (0.0-1.5) 10/21/21 21:45 ABG Sodium 138.1 mmol/L (136.0-145.0) 10/21/21 09:34 ABG Potassium 6.5 mmol/L (3.40-4.50) H 10/21/21 09:34 ABG Chloride 102.0 mmol/L (98-107) 10/21/21 09:34 ABG Glucose 190 mg/dL (65-95) H 10/21/21 09:34 Oxyhemoglobin 86.5 % (95.0-99.0) L 10/21/21 21:45 Carboxyhemoglobin 0.4 (0.5-1.5) L 10/21/21 09:34 FiO2 21 % 10/21/21 21:45 FiO2 % 100.0 10/21/21 09:34 Sodium 137 mmol/L (137-145) 10/22/21 02:50 Potassium 6.0 mmol/L (3.6-5.0) H 10/22/21 02:50 Chloride 95.4 mmol/L (98-107) L 10/22/21 02:50 Carbon Dioxide 23 mmol/L (22-30) 10/22/21 02:50 Anion Gap 25 mmol/L 10/22/21 02:50 BUN 51 mg/dL (9-20) H 10/22/21 02:50 Creatinine 3.2 mg/dL (0.8-1.3) H 10/22/21 02:50 Estimated GFR 28 ml/min 10/22/21 02:50 BUN/Creatinine Ratio 16 % 10/22/21 02:50 Glucose 227 mg/dL (75-100) H 10/22/21 02:50 POC Glucose 201 mg/dL (70-105) H 10/22/21 18:30 Hemoglobin A1c 7.9 % (4-6) H 10/19/21 23:52 Lactic Acid 1.40 mmol/L (0.7-2.0) 10/18/21 16:39 Calcium 7.7 mg/dL (8.4-10.2) L 10/22/21 02:50 Phosphorus 9.30 mg/dL (2.5-4.5) H 10/22/21 02:50 Magnesium 2.50 mg/dL (1.7-2.3) H 10/22/21 02:50 Ferritin 1550.0 ng/mL (30.0-300.0) H 10/21/21 02:16 Total Bilirubin 0.20 mg/dL (0.1-1.2) 10/22/21 02:50 AST 239 units/L (5-40) H 10/22/21 02:50 ALT 199 units/L (7-56) H 10/22/21 02:50 Alkaline Phosphatase 74 units/L (35-129) 10/22/21 02:50 Lactate Dehydrogenase 970 units/L (91-180) H 10/21/21 02:16 Total Creatine Kinase 1484 units/L (55-170) H 10/18/21 16:39 CK-MB (CK-2) 3.3 ng/mL (0.0-4.0) 10/18/21 16:39 CK-MB (CK-2) Rel Index 0.2 (0-4) 10/18/21 16:39 Troponin T < 0.010 ng/mL (0.00-0.029) 10/18/21 16:39 C-Reactive Protein 21.10 mg/dL (0.00-1.30) H 10/21/21 02:16 Total Protein 7.0 g/dL (6.3-8.2) 10/22/21 02:50 Albumin 3.2 g/dL (3.9-5) L 10/22/21 02:50 Albumin/Globulin Ratio 0.8 % 10/22/21 02:50 Triglycerides 390 mg/dL (2-149) H 10/22/21 02:50 Lipase 15 units/L (13-60) 10/18/21 16:39 Procalcitonin 0.49 ng/mL (<0.15) 10/19/21 23:52 Arterial Blood Glucose 190 mg/dL (65-95) H 10/21/21 09:34 Arterial Blood Ionized Calcium 4.2 mg/dL (4.6-5.3) L 10/21/21 09:34 Urine Color Yellow (Yellow) 10/18/21 22:26 Urine Turbidity Clear (Clear) 10/18/21 22:26 Urine pH 6.0 (5.0-7.0) 10/18/21 22:26 Ur Specific [place] 1.025 (1.003-1.030) 10/18/21 22:26 Urine Protein 100 mg/dl mg/dL (Negative) 10/18/21 22: Urine Glucose (UA) Neg mg/dL (Negative) 10/18/21 22:26 Urine Ketones Neg mg/dL (Negative) 10/18/21 22:26 Urine Blood Sm (Negative) 10/18/21 22:26 Urine Nitrite Neg (Negative) 10/18/21 22: Urine Bilirubin Neg (Negative) 10/18/21 22: Urine Urobilinogen < 2.0 mg/dL (<2.0) 10/18/21 22: Ur Leukocyte Esterase Neg (Negative) 10/18/21 22: Urine WBC (Auto) < 1.0 /HPF (0.0-6.0) 10/18/21 22: Urine RBC (Auto) < 1.0 /HPF (0.0-6.0) 10/18/21 22: U Epithel Cells (Auto) < 1.0 /HPF (0-13.0) 10/18/21 22: Urine Bacteria (Auto) 1+ /HPF (Negative) 10/18/21 22:26 Urine Creatinine 153.1 mg/dL (0.1-20.0) H 10/21/21 Unknown Urine Sodium 31 mmol/L 10/21/21 Unknown Urine Total Protein 173 mg/dL (5-11.8) H 10/21/21 Unknown Coronavirus (PCR) Positive (Negative) A 10/19/21 08:24 Hepatitis A IgM Ab Non-reactive (NonReactive) 10/19/21 23:52 Hep Bs Antigen Nonreactive (Negative) 10/19/21 23:52 Hep B Core IgM Ab Non-reactive (NonReactive) 10/19/21 23:52 Hepatitis C Antibody Non-reactive (NonReactive) 10/19/21 23:52 Microbiology: Microbiology 10/18/21 16:39 Peripheral/Venous Blood Culture - Preliminary NO GROWTH AFTER 4 DAYS 10/18/21 16:47 Peripheral/Venous Blood Culture - Preliminary NO GROWTH AFTER 4 DAYS 10/20/21 14:50 Tracheal Aspirate Sputum Culture - Preliminary Scott/IV: Voiding Method Indwelling Catheter Active Medications - Current Medications Current Medications: Generic Name Dose Route Start Last Admin Trade Name Freq PRN Reason Stop Dose Admin Acetaminophen 650 mg 10/20/21 13:30 Acetaminophen 325 Mg/10.15 Ml Oral Liqd Unit Dose FEEDTUBE Q6H PRN Pain MILD(1-3)/Fever >100.5/HUSSEIN Al Hydrox/Mg Hydrox/Simethicone 30 ml 10/20/21 13:30 Alum-Mag Hydroxide-Simethicone [phone]/5ml Oral Liqd 30 Ml PO Q4H PRN Indigestion Lipase/Protease/Amylase 1 each 10/20/21 15:15 Lipase 10,500/Protease 25,000/Amylase 43,750 (Units) Dr Johnson FEEDTUBE PRN PRN For Clogged Feeding Tube Bisacodyl 10 mg 10/20/21 13:30 Bisacodyl 10 Mg Rect Supp NV QDAY PRN constipation unrelieved by MOM Calcium Acetate 667 mg 10/22/21 14:00 10/22/21 14:38 Calcium Acetate 667 Mg Cap PO 667 mg TID ALBIN Administration Dextrose 50 ml 10/20/21 13:30 Dextrose 50% In Water (25gm) 50 Ml Syringe IV Q30MIN PRN Hypoglycemia Protocol Famotidine 10 mg 10/21/21 10:00 10/22/21 09:28 Famotidine 20 Mg/2 Ml Inj IV 10 mg BID ALBIN Administration Fentanyl 50 mcg 10/20/21 13:25 Fentanyl 100 Mcg/2 Ml Inj IV Q10MIN PRN ANALGESIA Heparin Sodium (Porcine) 5,000 unit 10/20/21 10:41 10/21/21 17:19 Heparin 10,000 Units/10 Ml Vial IV 5,000 unit Q6H PRN Administration Anti-Xa Assay < 0.1 units/ml Hydrophilic Ointment 1 applic 10/20/21 13:25 Lip Therapy Vaseline TP Q2HR PRN Dry Lips Ceftriaxone Sodium 2 gm in 100 mls @ 200 mls/hr 10/19/21 20:00 10/21/21 21:05 Rocephin/Ns 2 Gm/100 Ml IV 10/22/21 20:29 200 mls/hr Q24H ALBIN Administration Azithromycin 500 mg in 250 mls @ 250 mls/hr 10/19/21 21:00 10/21/21 21:05 Zithromax/Ns IV 10/22/21 21:59 250 mls/hr Q24H ALBIN Administration Heparin Sodium/Sodium Chloride 25,000 unit in 500 mls @ 30 mls/hr 10/20/21 20:00 10/22/21 05:44 Heparin/ 0.45% Nacl-25,000 Unit/500 Ml IV 750 units/hr TITR ALBIN 15 mls/hr Titration Protocol 1,500 UNITS/HR Midazolam HCl 100 mg/ Sodium 100 mls @ 2 mls/hr 10/20/21 14:00 10/22/21 16:37 Chloride IV 5 mg/hr TITR ALBIN 5 mls/hr Titration Protocol 2 MG/HR Fentanyl Citrate 2,000 mcg in 100 mls @ 7.938 mls/hr 10/20/21 14:00 10/22/21 17:27 Fentanyl Drip Premix IV 4 mcg/kg/hr TITR ALBIN 31.751 mls/hr Administration Protocol 1 MCG/KG/HR Propofol 1,000 mg in 100 mls @ 4.763 mls/hr 10/20/21 14:00 10/22/21 17:27 Diprivan 10 Mg/Ml IV 40 mcg/kg/min TITR ALBIN 38.102 mls/hr Administration Protocol 5 MCG/KG/MIN Sodium Chloride 1,000 mls @ 1 mls/hr 10/20/21 14:30 Nacl 0.9% 500 Ml IV DIRECT PRN ARTERIAL LINE FLUSH Sodium Chloride 100 mls @ 999 mls/hr 10/21/21 09:19 Nacl 0.9% IV MAYLIN PRN Hypotension Sodium Chloride 100 mls @ 999 mls/hr 10/22/21 11:48 Nacl 0.9% IV MAYLIN PRN Hypotension Dexmedetomidine HCl 400 mcg/ 104 mls @ 8.258 mls/hr 10/22/21 16:00 Sodium Chloride IV TITRATE ALBIN Protocol 0.2 MCG/KG/HR NORepinephrine/NS 8 MG-250 ML 8 mg in 250 mls @ 3.75 mls/hr 10/22/21 18:00 10/22/21 17:28 Norepinephrine/Ns 8 Mg-250 Ml (Double Conc) IV 2 mcg/min TITRATE ALBIN 3.75 mls/hr Administration Protocol 2 MCG/MIN Insulin Glargine 20 units 10/22/21 08:45 Insulin Glargine 100 Units/Ml SUB-Q QHS [facility] Insulin Human Lispro 0 unit 10/20/21 12:00 10/22/21 18:34 Insulin Lispro 100 Unit/Ml SUB-Q 2 unit Q6HR ALBIN Administration Protocol Methylprednisolone Sodium Succinate 60 mg 10/22/21 14:00 10/22/21 14:39 Methylprednisolone Sod Succinate 125 Mg/2 Ml Inj IV 60 mg Q8HR ALBIN Administration Midazolam HCl 2 mg 10/20/21 13:25 10/20/21 14:25 Midazolam 2 Mg/2 Ml Inj IV 2 mg Q10MIN PRN Administration Sedation Multi-Ingred Cream/Lotion/Oil/Oint 1 applic 10/20/21 13:25 Mineral Oil/Petrolatum, White Ophth Oint 3.5 Gm OU Q4HR PRN Dry Eye(s) Ondansetron HCl 4 mg 10/19/21 04:21 Ondansetron 4 Mg/2 Ml Inj IV Q8H PRN Nausea And Vomiting Oseltamivir Phosphate 30 mg 10/21/21 22:00 10/21/21 21:18 Oseltamivir Phosphate 30 Mg Cap PO 10/23/21 22:01 30 mg Q24H ALBIN Administration Promethazine HCl 25 mg 10/19/21 04:38 10/20/21 05:06 Promethazine 25 Mg Tab PO 25 mg Q6H PRN Administration Nausea And Vomiting Senna 8.8 mg 10/20/21 22:00 10/22/21 09:29 Sennosides Oral Liqd 8.8 Mg/5 Ml Oral Liqd FEEDTUBE 8.8 mg BID ALBIN Administration Simple Syrup 15 ml 10/20/21 15:15 Simple Syrup 15 Ml FEEDTUBE PRN PRN Hypoglycemia Simple Syrup 30 ml 10/20/21 15:15 Simple Syrup 15 Ml FEEDTUBE PRN PRN Hypoglycemia Sodium Bicarbonate 325 mg 10/20/21 15:15 Sodium Bicarbonate 325 Mg Tab FEEDTUBE PRN PRN For Clogged Feeding Tube Sodium Chloride 10 ml 10/19/21 10:00 10/22/21 09:28 Sodium Chloride 0.9% 10 Ml Flush Syringe IV 10 ml BID ALBIN Administration Sodium Chloride 10 ml 10/19/21 04:26 Sodium Chloride 0.9% 10 Ml Flush Syringe IV PRN PRN flush prior to & after IV med Nutrition/Malnutrition Assess - Dietary Evaluation Nutrition/Malnutrition Findings: Nutrition Notes Start: 10/19/21 14:34 Freq: Status: Active Protocol: Document 10/21/21 10:33 REESE (Rec: 10/21/21 10:53 REESE [id number]) Nutrition Notes Initial or Follow up Reassessment Current Diagnosis Diabetes,Hypertension, Respiratory Failure Other Pertinent Diagnosis COVID-19 pneu, hepatic steatosis, asthma, gout, pulmonary embolism Current Diet TF - Glucerna 1.2 at 108ml/hr Labs/Tests Na 136 K 7 BUN 43 Cr 2.3 BG 210 Phos 10.4 Mg 3 Pertinent Medications Decadron, Heparin gtt, Propofol at 14.288ml/hr ( provides 377 kcal), Senokot Height 6 ft Weight 158.757 kg [place] Body Weight (kg) 80.90 BMI 47.5 Weight Status Morbidly Obese Subjective/Other Information Pt remains on vent support. RN unable to locate Glucerna TF formula, so started Nepro instead. Burn Absent Trauma Absent Minimum of two criteria No #1 Nutrition Diagnosis Inadequate energy intake, Inadequate oral intake Comments: CHANGED Etiology [facility] ventilation As Evidenced by Signs and Symptoms pt NPO Diagnosis Progress(for reassessment Continues documentation) Is patient on ventilator? Yes Is Patient Ambulatory and/or Out of Bed No REE-([facility]-confined to bed) [phone] Calculation Used for Recommendations 70-80% energy needs Additional Notes Pro needs 1.3g/kg adjBW: 156g/ day Fluid needs 1ml/kcal Nutrition Intervention Nutrition Support: Change TF formula to Nepro at 53ml/hr. Provide 230ml water flush q4h. Kcal 2,290 Protein (gm) 103 Carbohydrates (gm) 205 Fat (gm) 122 Fluid (mL) 925 Fiber (gm) 16 Goal #1 TF tolerance Goal #2 TF to meet nutrient needs as best possible Follow-Up By: 10/24/21 Additional Comments F/U: TF tolerance, renal function, vent status, propofol
[2021-10-22] MEDS: NORepinephrine/NS 8 MG-250 ML 8 MG/250 ML INFUS..BTL IV SCH (17:28)
[2021-10-22] MEDS: cefTRIAXone/NS 2 GM/100 ML 2 GM/100 ML BAG IV SCH (21:26)
[2021-10-22] MEDS: AZITHROMYCIN/NS 500 MG/250 ML 500 MG/250 ML BAG IV SCH (21:26)
[2021-10-22] MEDS: OSELTAMIVIR PHOSPHATE 30 MG CAP PO SCH (21:26)
[2021-10-23] MEDS: INSULIN LISPRO 100 UNIT/ML SUB-Q SCH ×5 (00:19→23:34)
[2021-10-23] MEDS: fentaNYL DRIP Premix 2,000 MCG/100 ML BAG IV SCH ×8 (00:19→22:33)
[2021-10-23] MEDS: MIDAZOLAM 100 MG in SODIUM CHLORIDE 0.9% 80 ML IV SCH ×2 (03:37→23:54)
[2021-10-23] MEDS: MIDAZOLAM 2 MG/2 ML INJ IV PRN (04:20)
[2021-10-23] MEDS: methylPREDNISolone Sod Succinate 125 MG/2 ML INJ IV SCH ×4 (04:31→21:41)
[2021-10-23 04:53] LABS: Mean Corpuscular HGB Conc 31 % (32-34); Mean Corpuscular Volume 81 fl (84-94); Platelet Count 407 K/mm3 (140-440); Red Blood Count 4.68 M/mm3 (3.65-5.03); Red Cell Distribution Width 15.3 % (13.2-15.2)
[2021-10-23 04:59] LABS: Hematocrit 37.6 % (35.5-45.6); Hemoglobin 11.5 gm/dl (11.8-15.2)
[2021-10-23 05:15] LABS: Albumin 3.3 g/dL (3.9-5); C-Reactive Protein 6.4 mg/dL (0.00-1.30); Calcium 8.2 mg/dL (8.4-10.2)
[2021-10-23] MEDS: CALCIUM ACETATE 667 MG CAP PO SCH ×4 (07:45→20:08)
[2021-10-23] MEDS: HEPARIN/ 0.45% NACL DRIP 25,000 UNIT/500 ML BAG IV SCH (08:20)
[2021-10-23 09:10] LABS: ABG Base Excess -4.5 mmol/L (-2.0-3.0); ABG HCO3 25.5 mmol/L (20.0-26.0); ABG Methemoglobin 0.6 % (0.0-1.5); ABG Oxygen Saturation 89.9 % (95.0-99.0); ABG PCO2 71.9 mm Hg; ABG PO2 66.1 mm Hg (80.0-90.0)
[2021-10-23 09:20] LABS: ABG PH 7.167 pH Units (7.350-7.450)
--- NOTE | 2021-10-23 09:43 | XRay Report ---
CHEST 1 VIEW 10/23/2021 9:03 AM INDICATION / CLINICAL INFORMATION: follow up respiratory failure. COMPARISON: 10/22/2021 FINDINGS: SUPPORT DEVICES: Stable, satisfactory device positioning. HEART / MEDIASTINUM: Stable. LUNGS / PLEURA: Stable diffuse bilateral pulmonary opacities. No pneumothorax. ADDITIONAL FINDINGS: No significant additional findings. IMPRESSION: 1. No adverse change from the prior exam. Signer Name: Justin Jones MD Signed: 10/23/2021 9:39 AM Workstation Name: [id number]
[2021-10-23] MEDS: SENNOSIDES ORAL LIQD 8.8 MG/5 ML ORAL LIQD FEEDTUBE SCH ×2 (09:52→21:41)
[2021-10-23] MEDS: FAMOTIDINE 20 MG/2 ML INJ IV SCH ×2 (09:52→21:42)
--- NOTE | 2021-10-23 10:48 | Progress Note ---
Assessment and Plan 26 y/o morbidly obese male admitted with acute respiratory failure secondary to COVID pneumonia 10/23/21: Follow up renal recs. Per chart took off about 2 liters. CXR is the same, K remains elevated and BUN is 65. Acidemia is likely a combo of elevated CO2 and renal disease. Increased tidal volume but only by 25ml, as peak pressures are in the 40's. High risk for pneumothorax. Not a candidate for ecmo given obesity, he is age appropriate. Continue steroids. Continue Remdesivir. Overall prognosis is very very poor. 10/22/21: Hold on weaning today. Will ask renal for HD again today, and hopeful some volume removal. Hopeful echo can be read today. Maybe out of window for EKOS if evidence of right heart strain. CXR is worse. Will change steroids to solumedrol 60q8, may need long acting insulin. Feed patient. Very very guarded to poor prognosis. Will ask renal if they will dialyze again today. 10/21/21: Follow up echo. Unfortunately, requested initially to look for right heart strain and possible need for EKOS therapy however now in acute renal failure and needing dialysis. CXR is stable but does look like ARDS. HD catheter placed and ready for dialysis. [employer] placing art line now. Continue IV steroids, Continue remdesivir. Now that patient is intubated, prognosis is extremely poor, especially with renal failure. Continue supportive care. May need bicarb later. 1. Continue HFNC with NRB. Will use precedex in an attempt to help with anxiety 2. Long discussion with patient and at bedside in regards to risk of intubation and prognosis associated with this. Both expressed understanding 3. IV steroids, will increase to BID 4. Remdesivir 5. Actemra 6. Guarded to poor prognosis. CCT 31 minutes. Subjective Date of service: 10/23/21 Interval history: No acute events. More synchrony with the vent today. Still hypoxic but stable. CO2 remains elevated despite increases in tidal volume and breathing over the v ent. Family was here visiting on yesterday. Objective Vital Signs - 12hr 10/22/21 10/22/21 10/22/21 22:45 23:00 23:12 Temperature Pulse Rate 78 77 81 Pulse Rate [ From Monitor] Respiratory 18 18 18 Rate Blood Pressure 139/83 142/84 142/84 O2 Sat by Pulse 100 100 100 Oximetry 10/22/21 10/22/21 10/22/21 23:15 23:30 23:45 Temperature Pulse Rate 81 89 96 H Pulse Rate [ From Monitor] Respiratory 18 18 18 Rate Blood Pressure 137/83 133/78 136/78 O2 Sat by Pulse 99 99 99 Oximetry 10/23/21 10/23/21 10/23/21 00:00 00:02 00:15 Temperature 98.4 F Pulse Rate 98 H 97 H Pulse Rate [ From Monitor] Respiratory 18 17 18 Rate Blood Pressure 137/67 132/79 O2 Sat by Pulse 98 97 Oximetry 10/23/21 10/23/21 10/23/21 00:30 00:45 01:00 Temperature Pulse Rate 92 H 91 H 88 Pulse Rate [ From Monitor] Respiratory 18 20 18 Rate Blood Pressure 131/77 131/74 133/77 O2 Sat by Pulse 97 96 96 Oximetry 10/23/21 10/23/21 10/23/21 01:15 01:26 01:30 Temperature Pulse Rate 86 86 87 Pulse Rate [ From Monitor] Respiratory 19 18 19 Rate Blood Pressure 130/73 140/79 O2 Sat by Pulse 94 93 96 Oximetry 10/23/21 10/23/21 10/23/21 01:45 02:00 02:15 Temperature Pulse Rate 85 84 85 Pulse Rate [ From Monitor] Respiratory 18 19 16 Rate Blood Pressure 140/81 141/81 144/82 O2 Sat by Pulse 94 94 94 Oximetry 10/23/21 10/23/21 10/23/21 02:30 02:45 03:00 Temperature Pulse Rate 82 88 84 Pulse Rate [ From Monitor] Respiratory 14 20 17 Rate Blood Pressure 140/77 146/81 140/77 O2 Sat by Pulse 95 94 92 Oximetry 10/23/21 10/23/21 10/23/21 03:15 03:30 03:45 Temperature Pulse Rate 84 83 82 Pulse Rate [ From Monitor] Respiratory 17 22 17 Rate Blood Pressure 149/80 137/76 144/83 O2 Sat by Pulse 95 92 92 Oximetry 10/23/21 10/23/21 10/23/21 04:00 04:15 04:30 Temperature 98.8 F Pulse Rate 84 88 74 Pulse Rate [ From Monitor] Respiratory 21 22 18 Rate Blood Pressure 144/82 142/80 140/80 O2 Sat by Pulse 92 92 89 Oximetry 10/23/21 10/23/21 10/23/21 04:45 05:00 05:15 Temperature Pulse Rate 83 80 81 Pulse Rate [ From Monitor] Respiratory 20 24 18 Rate Blood Pressure 141/84 134/78 131/78 O2 Sat by Pulse 94 89 89 Oximetry 10/23/21 10/23/21 10/23/21 05:30 05:45 06:00 Temperature Pulse Rate 80 85 79 Pulse Rate [ From Monitor] Respiratory 15 20 16 Rate Blood Pressure 135/78 132/82 129/71 O2 Sat by Pulse 89 86 89 Oximetry 10/23/21 10/23/21 10/23/21 06:15 06:30 06:45 Temperature Pulse Rate 81 80 81 Pulse Rate [ From Monitor] Respiratory 19 20 15 Rate Blood Pressure 128/75 127/81 132/71 O2 Sat by Pulse 89 88 87 Oximetry 10/23/21 10/23/21 10/23/21 07:00 07:15 07:30 Temperature Pulse Rate 76 77 77 Pulse Rate [ From Monitor] Respiratory 20 21 23 Rate Blood Pressure 141/79 135/87 139/84 O2 Sat by Pulse 86 86 87 Oximetry 10/23/21 10/23/21 10/23/21 07:45 08:00 08:15 Temperature Pulse Rate 79 79 81 Pulse Rate [ 80 From Monitor] Respiratory 20 15 14 Rate Blood Pressure 141/83 133/68 127/72 O2 Sat by Pulse 88 89 87 Oximetry 10/23/21 10/23/21 10/23/21 08:30 08:37 08:45 Temperature Pulse Rate 81 77 83 Pulse Rate [ From Monitor] Respiratory 16 15 Rate Blood Pressure 121/73 135/87 119/66 O2 Sat by Pulse 88 87 88 Oximetry 10/23/21 10/23/21 10/23/21 09:00 09:15 09:30 Temperature Pulse Rate 82 82 83 Pulse Rate [ From Monitor] Respiratory 19 17 19 Rate Blood Pressure 123/66 124/72 119/67 O2 Sat by Pulse 88 87 87 Oximetry 10/23/21 10/23/21 10/23/21 09:45 10:00 10:15 Temperature Pulse Rate 81 80 81 Pulse Rate [ From Monitor] Respiratory 14 18 15 Rate Blood Pressure 122/67 119/65 110/64 O2 Sat by Pulse 87 86 87 Oximetry Constitutional: appears uncomfortable, other (morbidly obese) Eyes: non-icteric ENT: oropharynx moist Neck: supple, other (large in circumference) Effort: very labored Ascultation: Bilateral: diminished breath sounds Percussion: Bilateral: not dull Tactile fremitus: Bilateral: normal Cardiovascular: regular rate and rhythm Gastrointestinal: normoactive bowel sounds, soft Extremities: no edema Neurologic: normal mental status Psychiatric: anxious CBC and BMP: 10/23/21 04:45 10/23/21 04:45 ABG, PT/INR, D-dimer: ABG ABG pH 7.167 pH Units (7.350-7.450) L* 10/23/21 08:59 POC ABG pCO2 69.9 mmHg (32.0-48.0) H 10/21/21 09:34 ABG pCO2 71.9 mm Hg 10/23/21 08:59 POC ABG pO2 65.6 mmHg (83-108) L 10/21/21 09:34 ABG pO2 66.1 mm Hg (80.0-90.0) L 10/23/21 08:59 POC ABG HCO3 24.5 10/21/21 09:34 ABG O2 Saturation 89.9 % (95.0-99.0) L 10/23/21 08:59 PT/INR, D-dimer PT 14.8 Sec. (12.2-14.9) 10/20/21 13:30 INR 1.05 (0.87-1.13) 10/20/21 13:30 D-Dimer 1019.09 ng/mlDDU (0-234) H 10/23/21 04:45 Abnormal lab findings: Abnormal Labs 10/18/21 10/18/21 10/19/21 16:39 16:39 08:24 Hgb MCV 79 L MCH 26 L MCHC RDW 15.4 H Lymph % (Auto) 7.7 L Lymph # (Auto) 0.6 L Seg Neutrophils % 86.4 H Seg Neutrophils # D-Dimer Heparin Anti-Xa Level ABG pH POC ABG pCO2 POC ABG pO2 ABG pO2 ABG HCO3 ABG O2 Saturation ABG Base Excess ABG Hemoglobin ABG Oxyhemoglobin ABG Sodium ABG Potassium ABG Glucose Oxyhemoglobin Carboxyhemoglobin Sodium 133 L Potassium Chloride 96.6 L Carbon Dioxide 19 L BUN Creatinine Glucose 183 H POC Glucose Hemoglobin A1c Calcium Phosphorus Magnesium Ferritin AST 72 H ALT 58 H Lactate Dehydrogenase Total Creatine Kinase 1484 H C-Reactive Protein Total Protein Albumin 3.6 L Triglycerides Arterial Blood Glucose Arterial Blood Ionized Calcium Urine Creatinine Urine Total Protein Coronavirus (PCR) Positive A 10/19/21 10/19/21 10/19/21 13:41 17:41 21:02 Hgb MCV MCH MCHC RDW Lymph % (Auto) Lymph # (Auto) Seg Neutrophils % Seg Neutrophils # D-Dimer Heparin Anti-Xa Level ABG pH POC ABG pCO2 POC ABG pO2 ABG pO2 ABG HCO3 ABG O2 Saturation ABG Base Excess ABG Hemoglobin ABG Oxyhemoglobin ABG Sodium ABG Potassium ABG Glucose Oxyhemoglobin Carboxyhemoglobin Sodium Potassium Chloride Carbon Dioxide BUN Creatinine Glucose POC Glucose 231 H 228 H 271 H Hemoglobin A1c Calcium Phosphorus Magnesium Ferritin AST ALT Lactate Dehydrogenase Total Creatine Kinase C-Reactive Protein Total Protein Albumin Triglycerides Arterial Blood Glucose Arterial Blood Ionized Calcium Urine Creatinine Urine Total Protein Coronavirus (PCR) 10/19/21 10/19/21 10/19/21 23:52 23:52 23:52 Hgb MCV 79 L MCH 25 L MCHC RDW 15.9 H Lymph % (Auto) 4.9 L Lymph # (Auto) 0.5 L Seg Neutrophils % 89.7 H Seg Neutrophils # 8.9 H D-Dimer Heparin Anti-Xa Level ABG pH POC ABG pCO2 POC ABG pO2 ABG pO2 ABG HCO3 ABG O2 Saturation ABG Base Excess ABG Hemoglobin ABG Oxyhemoglobin ABG Sodium ABG Potassium ABG Glucose Oxyhemoglobin Carboxyhemoglobin Sodium 133 L Potassium Chloride 95.0 L Carbon Dioxide 18 L BUN Creatinine Glucose 217 H POC Glucose Hemoglobin A1c 7.9 H Calcium Phosphorus Magnesium Ferritin AST 94 H ALT 76 H Lactate Dehydrogenase Total Creatine Kinase C-Reactive Protein Total Protein 8.4 H Albumin 3.6 L Triglycerides Arterial Blood Glucose Arterial Blood Ionized Calcium Urine Creatinine Urine Total Protein Coronavirus (PCR) 10/19/21 10/19/21 10/19/21 23:52 23:52 23:52 Hgb MCV MCH MCHC RDW Lymph % (Auto) Lymph # (Auto) Seg Neutrophils % Seg Neutrophils # D-Dimer Heparin Anti-Xa Level ABG pH POC ABG pCO2 POC ABG pO2 ABG pO2 ABG HCO3 ABG O2 Saturation ABG Base Excess ABG Hemoglobin ABG Oxyhemoglobin ABG Sodium ABG Potassium ABG Glucose Oxyhemoglobin Carboxyhemoglobin Sodium Potassium Chloride Carbon Dioxide BUN Creatinine Glucose POC Glucose Hemoglobin A1c Calcium Phosphorus Magnesium Ferritin 786.1 H AST ALT Lactate Dehydrogenase 625 H Total Creatine Kinase C-Reactive Protein 18.80 H Total Protein Albumin Triglycerides Arterial Blood Glucose Arterial Blood Ionized Calcium Urine Creatinine Urine Total Protein Coronavirus (PCR) 10/19/21 10/20/21 10/20/21 23:52 11:25 14:40 Hgb MCV MCH MCHC RDW Lymph % (Auto) Lymph # (Auto) Seg Neutrophils % Seg Neutrophils # D-Dimer Heparin Anti-Xa Level ABG pH 7.282 L POC ABG pCO2 53.7 H POC ABG pO2 57.3 L ABG pO2 ABG HCO3 ABG O2 Saturation ABG Base Excess ABG Hemoglobin ABG Oxyhemoglobin 83.6 L ABG Sodium 132.2 L ABG Potassium 5.5 H ABG Glucose 255 H Oxyhemoglobin Carboxyhemoglobin 0.3 L Sodium Potassium Chloride Carbon Dioxide BUN Creatinine Glucose POC Glucose 174 H Hemoglobin A1c Calcium Phosphorus Magnesium Ferritin AST ALT Lactate Dehydrogenase Total Creatine Kinase C-Reactive Protein 19.20 H Total Protein Albumin Triglycerides Arterial Blood Glucose 255 H Arterial Blood Ionized Calcium Urine Creatinine Urine Total Protein Coronavirus (PCR) 10/20/21 10/20/21 10/20/21 15:49 19:11 22:51 Hgb MCV MCH MCHC RDW Lymph % (Auto) Lymph # (Auto) Seg Neutrophils % Seg Neutrophils # D-Dimer Heparin Anti-Xa Level ABG pH POC ABG pCO2 POC ABG pO2 ABG pO2 ABG HCO3 ABG O2 Saturation ABG Base Excess ABG Hemoglobin ABG Oxyhemoglobin ABG Sodium ABG Potassium ABG Glucose Oxyhemoglobin Carboxyhemoglobin Sodium Potassium Chloride Carbon Dioxide BUN Creatinine Glucose POC Glucose 239 H 198 H 171 H Hemoglobin A1c Calcium Phosphorus Magnesium Ferritin AST ALT Lactate Dehydrogenase Total Creatine Kinase C-Reactive Protein Total Protein Albumin Triglycerides Arterial Blood Glucose Arterial Blood Ionized Calcium Urine Creatinine Urine Total Protein Coronavirus (PCR) 10/20/21 10/21/21 10/21/21 Unknown 02:16 02:16 Hgb MCV 83 L MCH 25 L MCHC 31 L RDW 16.4 H Lymph % (Auto) Lymph # (Auto) Seg Neutrophils % Seg Neutrophils # D-Dimer Heparin Anti-Xa Level ABG pH POC ABG pCO2 POC ABG pO2 ABG pO2 ABG HCO3 ABG O2 Saturation ABG Base Excess ABG Hemoglobin ABG Oxyhemoglobin ABG Sodium ABG Potassium ABG Glucose Oxyhemoglobin Carboxyhemoglobin Sodium 135 L Potassium Chloride 96.5 L Carbon Dioxide BUN Creatinine Glucose 191 H POC Glucose Hemoglobin A1c Calcium 8.3 L Phosphorus 10.40 H Magnesium 3.00 H Ferritin AST 107 H ALT 94 H Lactate Dehydrogenase 970 H Total Creatine Kinase C-Reactive Protein 21.10 H Total Protein Albumin 3.5 L Triglycerides Arterial Blood Glucose Arterial Blood Ionized Calcium Urine Creatinine Urine Total Protein Coronavirus (PCR) 10/21/21 10/21/21 10/21/21 02:16 02:16 03:30 Hgb MCV MCH MCHC RDW Lymph % (Auto) Lymph # (Auto) Seg Neutrophils % Seg Neutrophils # D-Dimer 579.49 H Heparin Anti-Xa Level 1.60 H ABG pH POC ABG pCO2 POC ABG pO2 ABG pO2 ABG HCO3 ABG O2 Saturation ABG Base Excess ABG Hemoglobin ABG Oxyhemoglobin ABG Sodium ABG Potassium ABG Glucose Oxyhemoglobin Carboxyhemoglobin Sodium 136 L Potassium 7.0 H* D Chloride Carbon Dioxide BUN 43 H Creatinine 2.3 H D Glucose 210 H POC Glucose Hemoglobin A1c Calcium 8.3 L Phosphorus Magnesium Ferritin 1550.0 H AST 206 H ALT 194 H Lactate Dehydrogenase Total Creatine Kinase C-Reactive Protein Total Protein Albumin 3.3 L Triglycerides Arterial Blood Glucose Arterial Blood Ionized Calcium Urine Creatinine Urine Total Protein Coronavirus (PCR) 10/21/21 10/21/21 10/21/21 04:40 04:51 09:15 Hgb MCV MCH MCHC RDW Lymph % (Auto) Lymph # (Auto) Seg Neutrophils % Seg Neutrophils # D-Dimer Heparin Anti-Xa Level ABG pH 7.184 L* POC ABG pCO2 POC ABG pO2 ABG pO2 60.2 L ABG HCO3 ABG O2 Saturation 86.6 L ABG Base Excess -4.3 L ABG Hemoglobin 12.1 L ABG Oxyhemoglobin ABG Sodium ABG Potassium ABG Glucose Oxyhemoglobin 85.2 L Carboxyhemoglobin Sodium Potassium Chloride Carbon Dioxide BUN Creatinine Glucose POC Glucose 204 H 177 H Hemoglobin A1c Calcium Phosphorus Magnesium Ferritin AST ALT Lactate Dehydrogenase Total Creatine Kinase C-Reactive Protein Total Protein Albumin Triglycerides Arterial Blood Glucose Arterial Blood Ionized Calcium Urine Creatinine Urine Total Protein Coronavirus (PCR) 10/21/21 10/21/21 10/21/21 09:34 10:53 11:27 Hgb MCV MCH MCHC RDW Lymph % (Auto) Lymph # (Auto) Seg Neutrophils % Seg Neutrophils # D-Dimer Heparin Anti-Xa Level ABG pH 7.162 L POC ABG pCO2 69.9 H POC ABG pO2 65.6 L ABG pO2 ABG HCO3 ABG O2 Saturation ABG Base Excess ABG Hemoglobin ABG Oxyhemoglobin 89.7 L ABG Sodium ABG Potassium 6.5 H ABG Glucose 190 H Oxyhemoglobin Carboxyhemoglobin 0.4 L Sodium Potassium Chloride Carbon Dioxide BUN Creatinine Glucose POC Glucose 183 H 184 H Hemoglobin A1c Calcium Phosphorus Magnesium Ferritin AST ALT Lactate Dehydrogenase Total Creatine Kinase C-Reactive Protein Total Protein Albumin Triglycerides Arterial Blood Glucose 190 H Arterial Blood Ionized Calcium 4.2 L Urine Creatinine Urine Total Protein Coronavirus (PCR) 10/21/21 10/21/21 10/21/21 12:00 12:39 16:20 Hgb MCV MCH MCHC RDW Lymph % (Auto) Lymph # (Auto) Seg Neutrophils % Seg Neutrophils # D-Dimer Heparin Anti-Xa Level ABG pH 7.183 L* POC ABG pCO2 POC ABG pO2 ABG pO2 ABG HCO3 26.2 H ABG O2 Saturation 94.6 L ABG Base Excess -3.6 L ABG Hemoglobin 13.1 L ABG Oxyhemoglobin ABG Sodium ABG Potassium ABG Glucose Oxyhemoglobin 93.0 L Carboxyhemoglobin Sodium Potassium 6.7 H* Chloride Carbon Dioxide BUN 54 H Creatinine 2.8 H Glucose 190 H POC Glucose 208 H Hemoglobin A1c Calcium 8.0 L Phosphorus Magnesium Ferritin AST ALT Lactate Dehydrogenase Total Creatine Kinase C-Reactive Protein Total Protein Albumin Triglycerides Arterial Blood Glucose Arterial Blood Ionized Calcium Urine Creatinine Urine Total Protein Coronavirus (PCR) 10/21/21 10/21/21 10/21/21 20:46 21:45 23:16 Hgb MCV MCH MCHC RDW Lymph % (Auto) Lymph # (Auto) Seg Neutrophils % Seg Neutrophils # D-Dimer Heparin Anti-Xa Level ABG pH 7.193 L* POC ABG pCO2 POC ABG pO2 ABG pO2 59.7 L ABG HCO3 27.0 H ABG O2 Saturation 88.0 L ABG Base Excess -2.2 L ABG Hemoglobin 11.1 L ABG Oxyhemoglobin ABG Sodium ABG Potassium ABG Glucose Oxyhemoglobin 86.5 L Carboxyhemoglobin Sodium Potassium Chloride Carbon Dioxide BUN Creatinine Glucose POC Glucose 192 H 204 H Hemoglobin A1c Calcium Phosphorus Magnesium Ferritin AST ALT Lactate Dehydrogenase Total Creatine Kinase C-Reactive Protein Total Protein Albumin Triglycerides Arterial Blood Glucose Arterial Blood Ionized Calcium Urine Creatinine Urine Total Protein Coronavirus (PCR) 10/21/21 10/21/21 10/21/21 Unknown Unknown Unknown Hgb MCV MCH MCHC RDW Lymph % (Auto) Lymph # (Auto) Seg Neutrophils % Seg Neutrophils # D-Dimer Heparin Anti-Xa Level 1.04 H 0.82 H ABG pH POC ABG pCO2 POC ABG pO2 ABG pO2 ABG HCO3 ABG O2 Saturation ABG Base Excess ABG Hemoglobin ABG Oxyhemoglobin ABG Sodium ABG Potassium ABG Glucose Oxyhemoglobin Carboxyhemoglobin Sodium Potassium Chloride Carbon Dioxide BUN Creatinine Glucose POC Glucose Hemoglobin A1c Calcium Phosphorus Magnesium Ferritin AST ALT Lactate Dehydrogenase Total Creatine Kinase C-Reactive Protein Total Protein Albumin Triglycerides Arterial Blood Glucose Arterial Blood Ionized Calcium Urine Creatinine 153.1 H Urine Total Protein 173 H Coronavirus (PCR) 10/22/21 10/22/21 10/22/21 02:50 02:50 02:50 Hgb 11.2 L MCV MCH MCHC RDW Lymph % (Auto) Lymph # (Auto) Seg Neutrophils % Seg Neutrophils # D-Dimer Heparin Anti-Xa Level ABG pH POC ABG pCO2 POC ABG pO2 ABG pO2 ABG HCO3 ABG O2 Saturation ABG Base Excess ABG Hemoglobin ABG Oxyhemoglobin ABG Sodium ABG Potassium ABG Glucose Oxyhemoglobin Carboxyhemoglobin Sodium Potassium 6.0 H Chloride 95.4 L Carbon Dioxide BUN 51 H Creatinine 3.2 H Glucose 227 H POC Glucose Hemoglobin A1c Calcium 7.7 L Phosphorus 9.30 H Magnesium 2.50 H Ferritin AST 239 H ALT 199 H Lactate Dehydrogenase Total Creatine Kinase C-Reactive Protein Total Protein Albumin 3.2 L Triglycerides 390 H Arterial Blood Glucose Arterial Blood Ionized Calcium Urine Creatinine Urine Total Protein Coronavirus (PCR) 10/22/21 10/22/21 10/22/21 04:42 11:34 18:30 Hgb MCV MCH MCHC RDW Lymph % (Auto) Lymph # (Auto) Seg Neutrophils % Seg Neutrophils # D-Dimer Heparin Anti-Xa Level ABG pH POC ABG pCO2 POC ABG pO2 ABG pO2 ABG HCO3 ABG O2 Saturation ABG Base Excess ABG Hemoglobin ABG Oxyhemoglobin ABG Sodium ABG Potassium ABG Glucose Oxyhemoglobin Carboxyhemoglobin Sodium Potassium Chloride Carbon Dioxide BUN Creatinine Glucose POC Glucose 227 H 256 H 201 H Hemoglobin A1c Calcium Phosphorus Magnesium Ferritin AST ALT Lactate Dehydrogenase Total Creatine Kinase C-Reactive Protein Total Protein Albumin Triglycerides Arterial Blood Glucose Arterial Blood Ionized Calcium Urine Creatinine Urine Total Protein Coronavirus (PCR) 10/22/21 10/23/21 10/23/21 23:29 04:45 04:45 Hgb MCV MCH MCHC RDW Lymph % (Auto) Lymph # (Auto) Seg Neutrophils % Seg Neutrophils # D-Dimer 1019.09 H Heparin Anti-Xa Level ABG pH POC ABG pCO2 POC ABG pO2 ABG pO2 ABG HCO3 ABG O2 Saturation ABG Base Excess ABG Hemoglobin ABG Oxyhemoglobin ABG Sodium ABG Potassium ABG Glucose Oxyhemoglobin Carboxyhemoglobin Sodium 129 L D Potassium 5.9 H Chloride 90.7 L Carbon Dioxide BUN 65 H Creatinine 4.4 H Glucose 329 H POC Glucose 269 H Hemoglobin A1c Calcium 8.2 L Phosphorus 9.60 H Magnesium 2.50 H Ferritin AST 181 H ALT 227 H Lactate Dehydrogenase 712 H Total Creatine Kinase C-Reactive Protein 6.40 H Total Protein Albumin 3.3 L Triglycerides Arterial Blood Glucose Arterial Blood Ionized Calcium Urine Creatinine Urine Total Protein Coronavirus (PCR) 10/23/21 10/23/21 10/23/21 04:45 05:38 08:59 Hgb 11.5 L MCV 81 L MCH 25 L MCHC 31 L RDW 15.3 H Lymph % (Auto) Lymph # (Auto) Seg Neutrophils % Seg Neutrophils # D-Dimer Heparin Anti-Xa Level ABG pH 7.167 L* POC ABG pCO2 POC ABG pO2 ABG pO2 66.1 L ABG HCO3 ABG O2 Saturation 89.9 L ABG Base Excess -4.5 L ABG Hemoglobin 13.3 L ABG Oxyhemoglobin ABG Sodium ABG Potassium ABG Glucose Oxyhemoglobin 88.4 L Carboxyhemoglobin Sodium Potassium Chloride Carbon Dioxide BUN Creatinine Glucose POC Glucose 313 H Hemoglobin A1c Calcium Phosphorus Magnesium Ferritin AST ALT Lactate Dehydrogenase Total Creatine Kinase C-Reactive Protein Total Protein Albumin Triglycerides Arterial Blood Glucose Arterial Blood Ionized Calcium Urine Creatinine Urine Total Protein Coronavirus (PCR)
--- NOTE | 2021-10-23 12:04 | Electrocardiograph Report ---
[facility] Test Date: 2021-10-23 Test Time: 08:58:10 Pat Name: DONNA WALKER Department: Room: A254 1 Gender: M Assembly Hand: BARNEY : 1995 Requested By: CANDACE SALDIVAR Order Number: [id number] Reading MD: Chilo Parmar Measurements Intervals [place] Rate: 82 P: 45 CA: 165 QRS: 36 QRSD: 84 T: 22 QT: 382 QTc: 445 Interpretive Statements Sinus rhythm Compared to ECG 10/18/2021 20:41:06 Sinus tachycardia no longer present Electronically Signed On 10-23-2021 12:04:21 EST by Chilo Parmar
--- NOTE | 2021-10-23 12:12 | Progress Note ---
Subjective Date of service: 10/22/21 Objective - Vital Signs Vital signs: Vital Signs - 12hr 10/23/21 10/23/21 10/23/21 00:15 00:30 00:45 Temperature Pulse Rate 97 H 92 H 91 H Pulse Rate [ From Monitor] Respiratory 18 18 20 Rate Blood Pressure 132/79 131/77 131/74 O2 Sat by Pulse 97 97 96 Oximetry 10/23/21 10/23/21 10/23/21 01:00 01:15 01:26 Temperature Pulse Rate 88 86 86 Pulse Rate [ From Monitor] Respiratory 18 19 18 Rate Blood Pressure 133/77 130/73 O2 Sat by Pulse 96 94 93 Oximetry 10/23/21 10/23/21 10/23/21 01:30 01:45 02:00 Temperature Pulse Rate 87 85 84 Pulse Rate [ From Monitor] Respiratory 19 18 19 Rate Blood Pressure 140/79 140/81 141/81 O2 Sat by Pulse 96 94 94 Oximetry 10/23/21 10/23/21 10/23/21 02:15 02:30 02:45 Temperature Pulse Rate 85 82 88 Pulse Rate [ From Monitor] Respiratory 16 14 20 Rate Blood Pressure 144/82 140/77 146/81 O2 Sat by Pulse 94 95 94 Oximetry 10/23/21 10/23/21 10/23/21 03:00 03:15 03:30 Temperature Pulse Rate 84 84 83 Pulse Rate [ From Monitor] Respiratory 17 17 22 Rate Blood Pressure 140/77 149/80 137/76 O2 Sat by Pulse 92 95 92 Oximetry 10/23/21 10/23/21 10/23/21 03:45 04:00 04:15 Temperature 98.8 F Pulse Rate 82 84 88 Pulse Rate [ From Monitor] Respiratory 17 21 22 Rate Blood Pressure 144/83 144/82 142/80 O2 Sat by Pulse 92 92 92 Oximetry 10/23/21 10/23/21 10/23/21 04:30 04:45 05:00 Temperature Pulse Rate 74 83 80 Pulse Rate [ From Monitor] Respiratory 18 20 24 Rate Blood Pressure 140/80 141/84 134/78 O2 Sat by Pulse 89 94 89 Oximetry 10/23/21 10/23/21 10/23/21 05:15 05:30 05:45 Temperature Pulse Rate 81 80 85 Pulse Rate [ From Monitor] Respiratory 18 15 20 Rate Blood Pressure 131/78 135/78 132/82 O2 Sat by Pulse 89 89 86 Oximetry 10/23/21 10/23/21 10/23/21 06:00 06:15 06:30 Temperature Pulse Rate 79 81 80 Pulse Rate [ From Monitor] Respiratory 16 19 20 Rate Blood Pressure 129/71 128/75 127/81 O2 Sat by Pulse 89 89 88 Oximetry 10/23/21 10/23/21 10/23/21 06:45 07:00 07:15 Temperature Pulse Rate 81 76 77 Pulse Rate [ From Monitor] Respiratory 15 20 21 Rate Blood Pressure 132/71 141/79 135/87 O2 Sat by Pulse 87 86 86 Oximetry 10/23/21 10/23/21 10/23/21 07:30 07:45 08:00 Temperature Pulse Rate 77 79 79 Pulse Rate [ 80 From Monitor] Respiratory 23 20 15 Rate Blood Pressure 139/84 141/83 133/68 O2 Sat by Pulse 87 88 89 Oximetry 10/23/21 10/23/21 10/23/21 08:15 08:30 08:37 Temperature Pulse Rate 81 81 77 Pulse Rate [ From Monitor] Respiratory 14 16 Rate Blood Pressure 127/72 121/73 135/87 O2 Sat by Pulse 87 88 87 Oximetry 10/23/21 10/23/21 10/23/21 08:45 09:00 09:15 Temperature Pulse Rate 83 82 82 Pulse Rate [ From Monitor] Respiratory 15 19 17 Rate Blood Pressure 119/66 123/66 124/72 O2 Sat by Pulse 88 88 87 Oximetry 10/23/21 10/23/21 10/23/21 09:30 09:45 10:00 Temperature Pulse Rate 83 81 80 Pulse Rate [ From Monitor] Respiratory 19 14 18 Rate Blood Pressure 119/67 122/67 119/65 O2 Sat by Pulse 87 87 86 Oximetry 10/23/21 10/23/21 10/23/21 10:15 10:30 10:45 Temperature Pulse Rate 81 82 82 Pulse Rate [ From Monitor] Respiratory 15 14 16 Rate Blood Pressure 110/64 116/65 119/67 O2 Sat by Pulse 87 86 87 Oximetry 10/23/21 10/23/21 11:00 11:15 Temperature Pulse Rate 81 80 Pulse Rate [ From Monitor] Respiratory 18 13 Rate Blood Pressure 122/72 117/67 O2 Sat by Pulse 87 88 Oximetry - Lab 10/23/21 04:45 10/23/21 04:45 Most recent lab results ABG pH 7.167 pH Units (7.350-7.450) L* 10/23/21 08:59 ABG pCO2 71.9 mm Hg 10/23/21 08:59 ABG pO2 66.1 mm Hg (80.0-90.0) L 10/23/21 08:59 ABG HCO3 25.5 mmol/L (20.0-26.0) 10/23/21 08:59 ABG O2 Saturation 89.9 % (95.0-99.0) L 10/23/21 08:59 Calcium 8.2 mg/dL (8.4-10.2) L 10/23/21 04:45 Phosphorus 9.60 mg/dL (2.5-4.5) H 10/23/21 04:45 Magnesium 2.50 mg/dL (1.7-2.3) H 10/23/21 04:45 Urine Creatinine 153.1 mg/dL (0.1-20.0) H 10/21/21 Unknown Urine Sodium 31 mmol/L 10/21/21 Unknown Urine Total Protein 173 mg/dL (5-11.8) H 10/21/21 Unknown Medications & Allergies - Medications Allergies/Adverse Reactions: Allergies No Known Allergies Allergy (Unverified 10/18/21 16:14) Home Medications: Home Medications Medication Instructions Recorded Confirmed Last Taken Type metFORMIN [Glucophage] 500 mg PO BID 10/20/21 10/20/21 Unknown History Active Medications: Generic Name Dose Route Start Last Admin Trade Name Freq PRN Reason Stop Dose Admin Acetaminophen 650 mg 10/20/21 13:30 Acetaminophen 325 Mg/10.15 Ml Oral Liqd Unit Dose FEEDTUBE Q6H PRN Pain MILD(1-3)/Fever >100.5/HUSSEIN Al Hydrox/Mg Hydrox/Simethicone 30 ml 10/20/21 13:30 Alum-Mag Hydroxide-Simethicone [phone]/5ml Oral Liqd 30 Ml PO Q4H PRN Indigestion Lipase/Protease/Amylase 1 each 10/20/21 15:15 Lipase 10,500/Protease 25,000/Amylase 43,750 (Units) Dr Johnson FEEDTUBE PRN PRN For Clogged Feeding Tube Bisacodyl 10 mg 10/20/21 13:30 Bisacodyl 10 Mg Rect Supp SD QDAY PRN constipation unrelieved by MOM Calcium Acetate 1,334 mg 10/23/21 08:00 10/23/21 09:53 Calcium Acetate 667 Mg Cap PO Not Given TID ALBIN Dextrose 50 ml 10/20/21 13:30 Dextrose 50% In Water (25gm) 50 Ml Syringe IV Q30MIN PRN Hypoglycemia Protocol Famotidine 10 mg 10/21/21 10:00 10/23/21 09:52 Famotidine 20 Mg/2 Ml Inj IV 10 mg BID ALBIN Administration Fentanyl 50 mcg 10/20/21 13:25 Fentanyl 100 Mcg/2 Ml Inj IV Q10MIN PRN ANALGESIA Heparin Sodium (Porcine) 5,000 unit 10/20/21 10:41 10/21/21 17:19 Heparin 10,000 Units/10 Ml Vial IV 5,000 unit Q6H PRN Administration Anti-Xa Assay < 0.1 units/ml Hydrophilic Ointment 1 applic 10/20/21 13:25 Lip Therapy Vaseline TP Q2HR PRN Dry Lips Heparin Sodium/Sodium Chloride 25,000 unit in 500 mls @ 30 mls/hr 10/20/21 20:00 10/23/21 08:20 Heparin/ 0.45% Nacl-25,000 Unit/500 Ml IV 750 units/hr TITR ALBIN 15 mls/hr Administration Protocol 1,500 UNITS/HR Midazolam HCl 100 mg/ Sodium 100 mls @ 2 mls/hr 10/20/21 14:00 10/23/21 07:42 Chloride IV 5 mg/hr TITR ALBIN 5 mls/hr Titration Protocol 2 MG/HR Fentanyl Citrate 2,000 mcg in 100 mls @ 7.938 mls/hr 10/20/21 14:00 10/23/21 10:02 Fentanyl Drip Premix IV 4 mcg/kg/hr TITR ALBIN 31.751 mls/hr Administration Protocol 1 MCG/KG/HR Propofol 1,000 mg in 100 mls @ 4.763 mls/hr 10/20/21 14:00 10/23/21 11:29 Diprivan 10 Mg/Ml IV 40 mcg/kg/min TITR ALBIN 38.102 mls/hr Administration Protocol 5 MCG/KG/MIN Sodium Chloride 1,000 mls @ 1 mls/hr 10/20/21 14:30 Nacl 0.9% 500 Ml IV DIRECT PRN ARTERIAL LINE FLUSH Sodium Chloride 100 mls @ 999 mls/hr 10/21/21 09:19 Nacl 0.9% IV MAYLIN PRN Hypotension Sodium Chloride 100 mls @ 999 mls/hr 10/22/21 11:48 Nacl 0.9% IV MAYLIN PRN Hypotension Dexmedetomidine HCl 400 mcg/ 104 mls @ 8.258 mls/hr 10/22/21 16:00 10/23/21 07:42 Sodium Chloride IV 0.2 mcg/kg/hr TITRATE ALBIN 8.258 mls/hr Titration Protocol 0.2 MCG/KG/HR NORepinephrine/NS 8 MG-250 ML 8 mg in 250 mls @ 3.75 mls/hr 10/22/21 18:00 10/23/21 08:20 Norepinephrine/Ns 8 Mg-250 Ml (Double Conc) IV 0 mcg/min TITRATE ALBIN 0 mls/hr Titration Protocol 2 MCG/MIN Insulin Glargine 30 units 10/23/21 22:00 Insulin Glargine 100 Units/Ml SUB-Q QHS [facility] Insulin Human Lispro 0 unit 10/20/21 12:00 10/23/21 12:12 Insulin Lispro 100 Unit/Ml SUB-Q 4 unit Q6HR [facility] Administration Protocol Methylprednisolone Sodium Succinate 60 mg 10/22/21 14:00 10/23/21 05:49 Methylprednisolone Sod Succinate 125 Mg/2 Ml Inj IV Not Given Q8HR [facility] Midazolam HCl 2 mg 10/20/21 13:25 10/23/21 04:20 Midazolam 2 Mg/2 Ml Inj IV 2 mg Q10MIN PRN Administration Sedation Multi-Ingred Cream/Lotion/Oil/Oint 1 applic 10/20/21 13:25 Mineral Oil/Petrolatum, White Ophth Oint 3.5 Gm OU Q4HR PRN Dry Eye(s) Ondansetron HCl 4 mg 10/19/21 04:21 Ondansetron 4 Mg/2 Ml Inj IV Q8H PRN Nausea And Vomiting Oseltamivir Phosphate 30 mg 10/21/21 22:00 10/22/21 21:26 Oseltamivir Phosphate 30 Mg Cap PO 10/23/21 22:01 30 mg Q24H ALBIN Administration Promethazine HCl 25 mg 10/19/21 04:38 10/20/21 05:06 Promethazine 25 Mg Tab PO 25 mg Q6H PRN Administration Nausea And Vomiting Senna 8.8 mg 10/20/21 22:00 10/23/21 09:52 Sennosides Oral Liqd 8.8 Mg/5 Ml Oral Liqd FEEDTUBE 8.8 mg BID ALBIN Administration Simple Syrup 15 ml 10/20/21 15:15 Simple Syrup 15 Ml FEEDTUBE PRN PRN Hypoglycemia Simple Syrup 30 ml 10/20/21 15:15 Simple Syrup 15 Ml FEEDTUBE PRN PRN Hypoglycemia Sodium Bicarbonate 325 mg 10/20/21 15:15 Sodium Bicarbonate 325 Mg Tab FEEDTUBE PRN PRN For Clogged Feeding Tube Sodium Chloride 10 ml 10/19/21 10:00 10/23/21 09:52 Sodium Chloride 0.9% 10 Ml Flush Syringe IV 10 ml BID ALBIN Administration Sodium Chloride 10 ml 10/19/21 04:26 Sodium Chloride 0.9% 10 Ml Flush Syringe IV PRN PRN flush prior to & after IV med Sodium Polystyrene Sulfonate 60 gm 10/23/21 12:05 Sodium Polystyrene 15 Gm/60 Ml Oral Liqd PO 10/23/21 12:06 ONCE ONE
--- NOTE | 2021-10-23 12:17 | Progress Note ---
Subjective Date of service: 10/22/21 Principal diagnosis: phan Interval history: Impression/Plan: #Acute kidney injury, patient's creatinine has risen from 0.8-2.3 in the last 3 days,no on hd for atn, hyperkalemia and volume and solute control Quite likely etiology of renal failure appears to be resulting from Covid 19 infection, hypoxemia respiratory failure, Patient will need renal placement therapy given the severity of renal failure and rapidly evolving hyperkalemia, Currently intubated to follow-up on serial ABGs, also recommend serial lactic acid level as well #Positive for Covid 19 infection, with a severe respiratory failure #Pulmonary embolism in the setting of Covid 19 infection and respiratory failure #Metabolic acidosis #Diabetes mellitus type 2 #Continue with supportive care obtain renal imaging, renal labs Overall prognosis appears to be guarded to poor given the complexity of health issues, especially with pulmonary embolism severe respiratory failure evolving hyperkalemia and multiorgan failure-like picture Source of information: From current chart patient unable to provide any history SUbjective: labs and chart reviewed Events of this hospitalization were noted Physical examination Vitals: Reviewed General: No acute distress HEENT: intubated Neck: Supple without any JVD thyromegaly or nodular mass Chest:bilateral coarse crackles Heart: Regular rate and rhythm S1-S2 heard no S3-S4 Abdomen: Soft nontender, bowel sounds present no renal bruit no suprapubic masses no CVA tenderness noted Extremity: Minimal edema dry skin no peripheral cyanosis Endocrine: Thyroid not enlarged Psychiatric: No agitation and aggression noted Musculoskeletal: No joint effusion noted Objective - Vital Signs Vital signs: Vital Signs - 12hr 10/23/21 10/23/21 10/23/21 00:15 00:30 00:45 Temperature Pulse Rate 97 H 92 H 91 H Pulse Rate [ From Monitor] Respiratory 18 18 20 Rate Blood Pressure 132/79 131/77 131/74 O2 Sat by Pulse 97 97 96 Oximetry 10/23/21 10/23/21 10/23/21 01:00 01:15 01:26 Temperature Pulse Rate 88 86 86 Pulse Rate [ From Monitor] Respiratory 18 19 18 Rate Blood Pressure 133/77 130/73 O2 Sat by Pulse 96 94 93 Oximetry 10/23/21 10/23/21 10/23/21 01:30 01:45 02:00 Temperature Pulse Rate 87 85 84 Pulse Rate [ From Monitor] Respiratory 19 18 19 Rate Blood Pressure 140/79 140/81 141/81 O2 Sat by Pulse 96 94 94 Oximetry 10/23/21 10/23/21 10/23/21 02:15 02:30 02:45 Temperature Pulse Rate 85 82 88 Pulse Rate [ From Monitor] Respiratory 16 14 20 Rate Blood Pressure 144/82 140/77 146/81 O2 Sat by Pulse 94 95 94 Oximetry 10/23/21 10/23/21 10/23/21 03:00 03:15 03:30 Temperature Pulse Rate 84 84 83 Pulse Rate [ From Monitor] Respiratory 17 17 22 Rate Blood Pressure 140/77 149/80 137/76 O2 Sat by Pulse 92 95 92 Oximetry 10/23/21 10/23/21 10/23/21 03:45 04:00 04:15 Temperature 98.8 F Pulse Rate 82 84 88 Pulse Rate [ From Monitor] Respiratory 17 22 Rate Blood Pressure 144/83 144/82 142/80 O2 Sat by Pulse 92 92 92 Oximetry 10/23/21 10/23/21 10/23/21 04:30 04:45 05:00 Temperature Pulse Rate 74 83 80 Pulse Rate [ From Monitor] Respiratory 18 20 24 Rate Blood Pressure 140/80 141/84 134/78 O2 Sat by Pulse 89 94 89 Oximetry 10/23/21 10/23/21 10/23/21 05:15 05:30 05:45 Temperature Pulse Rate 81 80 85 Pulse Rate [ From Monitor] Respiratory 18 15 20 Rate Blood Pressure 131/78 135/78 132/82 O2 Sat by Pulse 89 89 86 Oximetry 10/23/21 10/23/21 10/23/21 06:00 06:15 06:30 Temperature Pulse Rate 79 81 80 Pulse Rate [ From Monitor] Respiratory 16 19 20 Rate Blood Pressure 129/71 128/75 127/81 O2 Sat by Pulse 89 89 88 Oximetry 10/23/21 10/23/21 10/23/21 06:45 07:00 07:15 Temperature Pulse Rate 81 76 77 Pulse Rate [ From Monitor] Respiratory 15 20 21 Rate Blood Pressure 132/71 141/79 135/87 O2 Sat by Pulse 87 86 86 Oximetry 10/23/21 10/23/21 10/23/21 07:30 07:45 08:00 Temperature Pulse Rate 77 79 79 Pulse Rate [ 80 From Monitor] Respiratory 23 20 15 Rate Blood Pressure 139/84 141/83 133/68 O2 Sat by Pulse 87 88 89 Oximetry 10/23/21 10/23/21 10/23/21 08:15 08:30 08:37 Temperature Pulse Rate 81 81 77 Pulse Rate [ From Monitor] Respiratory 14 16 Rate Blood Pressure 127/72 121/73 135/87 O2 Sat by Pulse 87 88 87 Oximetry 10/23/21 10/23/21 10/23/21 08:45 09:00 09:15 Temperature Pulse Rate 83 82 82 Pulse Rate [ From Monitor] Respiratory 15 19 17 Rate Blood Pressure 119/66 123/66 124/72 O2 Sat by Pulse 88 88 87 Oximetry 10/23/21 10/23/21 10/23/21 09:30 09:45 10:00 Temperature Pulse Rate 83 81 80 Pulse Rate [ From Monitor] Respiratory 19 14 18 Rate Blood Pressure 119/67 122/67 119/65 O2 Sat by Pulse 87 87 86 Oximetry 10/23/21 10/23/21 10/23/21 10:15 10:30 10:45 Temperature Pulse Rate 81 82 82 Pulse Rate [ From Monitor] Respiratory 15 14 16 Rate Blood Pressure 110/64 116/65 119/67 O2 Sat by Pulse 87 86 87 Oximetry 10/23/21 10/23/21 11:00 11:15 Temperature Pulse Rate 81 80 Pulse Rate [ From Monitor] Respiratory 18 13 Rate Blood Pressure 122/72 117/67 O2 Sat by Pulse 87 88 Oximetry - Lab 10/23/21 04:45 10/23/21 04:45 Most recent lab results ABG pH 7.167 pH Units (7.350-7.450) L* 10/23/21 08:59 ABG pCO2 71.9 mm Hg 10/23/21 08:59 ABG pO2 66.1 mm Hg (80.0-90.0) L 10/23/21 08:59 ABG HCO3 25.5 mmol/L (20.0-26.0) 10/23/21 08:59 ABG O2 Saturation 89.9 % (95.0-99.0) L 10/23/21 08:59 Calcium 8.2 mg/dL (8.4-10.2) L 10/23/21 04:45 Phosphorus 9.60 mg/dL (2.5-4.5) H 10/23/21 04:45 Magnesium 2.50 mg/dL (1.7-2.3) H 10/23/21 04:45 Urine Creatinine 153.1 mg/dL (0.1-20.0) H 10/21/21 Unknown Urine Sodium 31 mmol/L 10/21/21 Unknown Urine Total Protein 173 mg/dL (5-11.8) H 10/21/21 Unknown Medications & Allergies - Medications Allergies/Adverse Reactions: Allergies No Known Allergies Allergy (Unverified 10/18/21 16:14) Home Medications: Home Medications Medication Instructions Recorded Confirmed Last Taken Type metFORMIN [Glucophage] 500 mg PO BID 10/20/21 10/20/21 Unknown History Active Medications: Generic Name Dose Route Start Last Admin Trade Name Freq PRN Reason Stop Dose Admin Acetaminophen 650 mg 10/20/21 13:30 Acetaminophen 325 Mg/10.15 Ml Oral Liqd Unit Dose FEEDTUBE Q6H PRN Pain MILD(1-3)/Fever >100.5/HUSSEIN Al Hydrox/Mg Hydrox/Simethicone 30 ml 10/20/21 13:30 Alum-Mag Hydroxide-Simethicone [phone]/5ml Oral Liqd 30 Ml PO Q4H PRN Indigestion Lipase/Protease/Amylase 1 each 10/20/21 15:15 Lipase 10,500/Protease 25,000/Amylase 43,750 (Units) Dr Johnson FEEDTUBE PRN PRN For Clogged Feeding Tube Bisacodyl 10 mg 10/20/21 13:30 Bisacodyl 10 Mg Rect Supp MD QDAY PRN constipation unrelieved by MOM Calcium Acetate 1,334 mg 10/23/21 08:00 10/23/21 09:53 Calcium Acetate 667 Mg Cap PO Not Given TID ALBIN Dextrose 50 ml 10/20/21 13:30 Dextrose 50% In Water (25gm) 50 Ml Syringe IV Q30MIN PRN Hypoglycemia Protocol Famotidine 10 mg 10/21/21 10:00 10/23/21 09:52 Famotidine 20 Mg/2 Ml Inj IV 10 mg BID ALBIN Administration Fentanyl 50 mcg 10/20/21 13:25 Fentanyl 100 Mcg/2 Ml Inj IV Q10MIN PRN ANALGESIA Heparin Sodium (Porcine) 5,000 unit 10/20/21 10:41 10/21/21 17:19 Heparin 10,000 Units/10 Ml Vial IV 5,000 unit Q6H PRN Administration Anti-Xa Assay < 0.1 units/ml Hydrophilic Ointment 1 applic 10/20/21 13:25 Lip Therapy Vaseline TP Q2HR PRN Dry Lips Heparin Sodium/Sodium Chloride 25,000 unit in 500 mls @ 30 mls/hr 10/20/21 20:00 10/23/21 08:20 Heparin/ 0.45% Nacl-25,000 Unit/500 Ml IV 750 units/hr TITR ALBIN 15 mls/hr Administration Protocol 1,500 UNITS/HR Midazolam HCl 100 mg/ Sodium 100 mls @ 2 mls/hr 10/20/21 14:00 10/23/21 07:42 Chloride IV 5 mg/hr TITR ALBIN 5 mls/hr Titration Protocol 2 MG/HR Fentanyl Citrate 2,000 mcg in 100 mls @ 7.938 mls/hr 10/20/21 14:00 10/23/21 10:02 Fentanyl Drip Premix IV 4 mcg/kg/hr TITR ALBIN 31.751 mls/hr Administration Protocol 1 MCG/KG/HR Propofol 1,000 mg in 100 mls @ 4.763 mls/hr 10/20/21 14:00 10/23/21 11:29 Diprivan 10 Mg/Ml IV 40 mcg/kg/min TITR ALBIN 38.102 mls/hr Administration Protocol 5 MCG/KG/MIN Sodium Chloride 1,000 mls @ 1 mls/hr 10/20/21 14:30 Nacl 0.9% 500 Ml IV DIRECT PRN ARTERIAL LINE FLUSH Sodium Chloride 100 mls @ 999 mls/hr 10/21/21 09:19 Nacl 0.9% IV MAYLIN PRN Hypotension Sodium Chloride 100 mls @ 999 mls/hr 10/22/21 11:48 Nacl 0.9% IV MAYLIN PRN Hypotension Dexmedetomidine HCl 400 mcg/ 104 mls @ 8.258 mls/hr 10/22/21 16:00 10/23/21 07:42 Sodium Chloride IV 0.2 mcg/kg/hr TITRATE ALBIN 8.258 mls/hr Titration Protocol 0.2 MCG/KG/HR NORepinephrine/NS 8 MG-250 ML 8 mg in 250 mls @ 3.75 mls/hr 10/22/21 18:00 10/23/21 08:20 Norepinephrine/Ns 8 Mg-250 Ml (Double Conc) IV 0 mcg/min TITRATE ALBIN 0 mls/hr Titration Protocol 2 MCG/MIN Insulin Glargine 30 units 10/23/21 22:00 Insulin Glargine 100 Units/Ml SUB-Q QHS ALBIN Insulin Human Lispro 0 unit 10/20/21 12:00 10/23/21 12:12 Insulin Lispro 100 Unit/Ml SUB-Q 4 unit Q6HR ALBIN Administration Protocol Methylprednisolone Sodium Succinate 60 mg 10/22/21 14:00 10/23/21 05:49 Methylprednisolone Sod Succinate 125 Mg/2 Ml Inj IV Not Given Q8HR [facility] Midazolam HCl 2 mg 10/20/21 13:25 10/23/21 04:20 Midazolam 2 Mg/2 Ml Inj IV 2 mg Q10MIN PRN Administration Sedation Multi-Ingred Cream/Lotion/Oil/Oint 1 applic 10/20/21 13:25 Mineral Oil/Petrolatum, White Ophth Oint 3.5 Gm OU Q4HR PRN Dry Eye(s) Ondansetron HCl 4 mg 10/19/21 04:21 Ondansetron 4 Mg/2 Ml Inj IV Q8H PRN Nausea And Vomiting Oseltamivir Phosphate 30 mg 10/21/21 22:00 10/22/21 21:26 Oseltamivir Phosphate 30 Mg Cap PO 10/23/21 22:01 30 mg Q24H ALBIN Administration Promethazine HCl 25 mg 10/19/21 04:38 10/20/21 05:06 Promethazine 25 Mg Tab PO 25 mg Q6H PRN Administration Nausea And Vomiting Senna 8.8 mg 10/20/21 22:00 10/23/21 09:52 Sennosides Oral Liqd 8.8 Mg/5 Ml Oral Liqd FEEDTUBE 8.8 mg BID ALBIN Administration Simple Syrup 15 ml 10/20/21 15:15 Simple Syrup 15 Ml FEEDTUBE PRN PRN Hypoglycemia Simple Syrup 30 ml 10/20/21 15:15 Simple Syrup 15 Ml FEEDTUBE PRN PRN Hypoglycemia Sodium Bicarbonate 325 mg 10/20/21 15:15 Sodium Bicarbonate 325 Mg Tab FEEDTUBE PRN PRN For Clogged Feeding Tube Sodium Chloride 10 ml 10/19/21 10:00 10/23/21 09:52 Sodium Chloride 0.9% 10 Ml Flush Syringe IV 10 ml BID ALBIN Administration Sodium Chloride 10 ml 10/19/21 04:26 Sodium Chloride 0.9% 10 Ml Flush Syringe IV PRN PRN flush prior to & after IV med Sodium Polystyrene Sulfonate 60 gm 10/23/21 12:05 Sodium Polystyrene 15 Gm/60 Ml Oral Liqd PO 10/23/21 12:06 ONCE ONE
--- NOTE | 2021-10-23 12:20 | Progress Note ---
Subjective Date of service: 10/23/21 Principal diagnosis: phan Interval history: Impression/Plan: #Acute kidney injury with ATN patient's creatinine has risen from 0.8-2.3 in the last 3 days,no on hd for atn, hyperkalemia and volume and solute control Quite likely etiology of renal failure appears to be resulting from Covid 19 infection, hypoxemia respiratory failure, Patient will need renal placement therapy given the severity of renal failure and rapidly evolving hyperkalemia, Currently intubated to follow-up on serial ABGs, also recommend serial lactic acid level as well give kayexalate today plans for hd in am #Positive for Covid 19 infection, with a severe respiratory failure #Pulmonary embolism in the setting of Covid 19 infection and respiratory failure #Metabolic acidosis #Diabetes mellitus type 2 #Continue with supportive care obtain renal imaging, renal labs Overall prognosis appears to be guarded to poor given the complexity of health issues, especially with pulmonary embolism severe respiratory failure evolving hyperkalemia and multiorgan failure-like picture Source of information: From current chart patient unable to provide any history SUbjective: labs and chart reviewed Events of this hospitalization were noted Physical examination Vitals: Reviewed General: No acute distress HEENT: intubated Neck: Supple without any JVD thyromegaly or nodular mass Chest:bilateral coarse crackles Heart: Regular rate and rhythm S1-S2 heard no S3-S4 Abdomen: Soft nontender, bowel sounds present no renal bruit no suprapubic masses no CVA tenderness noted Extremity: Minimal edema dry skin no peripheral cyanosis Endocrine: Thyroid not enlarged Psychiatric: No agitation and aggression noted Musculoskeletal: No joint effusion noted Objective - Vital Signs Vital signs: Vital Signs - 12hr 10/23/21 10/23/21 10/23/21 00:30 00:45 01:00 Temperature Pulse Rate 92 H 91 H 88 Pulse Rate [ From Monitor] Respiratory 18 20 18 Rate Blood Pressure 131/77 131/74 133/77 O2 Sat by Pulse 97 96 96 Oximetry 10/23/21 10/23/21 10/23/21 01:15 01:26 01:30 Temperature Pulse Rate 86 86 87 Pulse Rate [ From Monitor] Respiratory 19 18 19 Rate Blood Pressure 130/73 140/79 O2 Sat by Pulse 94 93 96 Oximetry 10/23/21 10/23/21 10/23/21 01:45 02:00 02:15 Temperature Pulse Rate 85 84 85 Pulse Rate [ From Monitor] Respiratory 18 19 16 Rate Blood Pressure 140/81 141/81 144/82 O2 Sat by Pulse 94 94 94 Oximetry 10/23/21 10/23/21 10/23/21 02:30 02:45 03:00 Temperature Pulse Rate 82 88 84 Pulse Rate [ From Monitor] Respiratory 14 20 17 Rate Blood Pressure 140/77 146/81 140/77 O2 Sat by Pulse 95 94 92 Oximetry 10/23/21 10/23/21 10/23/21 03:15 03:30 03:45 Temperature Pulse Rate 84 83 82 Pulse Rate [ From Monitor] Respiratory 17 22 17 Rate Blood Pressure 149/80 137/76 144/83 O2 Sat by Pulse 95 92 92 Oximetry 10/23/21 10/23/21 10/23/21 04:00 04:15 04:30 Temperature 98.8 F Pulse Rate 84 88 74 Pulse Rate [ From Monitor] Respiratory 21 22 18 Rate Blood Pressure 144/82 142/80 140/80 O2 Sat by Pulse 92 92 89 Oximetry 10/23/21 10/23/21 10/23/21 04:45 05:00 05:15 Temperature Pulse Rate 83 80 81 Pulse Rate [ From Monitor] Respiratory 20 24 18 Rate Blood Pressure 141/84 134/78 131/78 O2 Sat by Pulse 94 89 89 Oximetry 10/23/21 10/23/21 10/23/21 05:30 05:45 06:00 Temperature Pulse Rate 80 85 79 Pulse Rate [ From Monitor] Respiratory 15 20 16 Rate Blood Pressure 135/78 132/82 129/71 O2 Sat by Pulse 89 86 89 Oximetry 10/23/21 10/23/21 10/23/21 06:15 06:30 06:45 Temperature Pulse Rate 81 80 81 Pulse Rate [ From Monitor] Respiratory 19 20 15 Rate Blood Pressure 128/75 127/81 132/71 O2 Sat by Pulse 89 88 87 Oximetry 10/23/21 10/23/21 10/23/21 07:00 07:15 07:30 Temperature Pulse Rate 76 77 77 Pulse Rate [ From Monitor] Respiratory 20 21 23 Rate Blood Pressure 141/79 135/87 139/84 O2 Sat by Pulse 86 86 87 Oximetry 10/23/21 10/23/21 10/23/21 07:45 08:00 08:15 Temperature Pulse Rate 79 79 81 Pulse Rate [ 80 From Monitor] Respiratory 20 15 14 Rate Blood Pressure 141/83 133/68 127/72 O2 Sat by Pulse 88 89 87 Oximetry 10/23/21 10/23/21 10/23/21 08:30 08:37 08:45 Temperature Pulse Rate 81 77 83 Pulse Rate [ From Monitor] Respiratory 16 15 Rate Blood Pressure 121/73 135/87 119/66 O2 Sat by Pulse 88 87 88 Oximetry 10/23/21 10/23/21 10/23/21 09:00 09:15 09:30 Temperature Pulse Rate 82 82 83 Pulse Rate [ From Monitor] Respiratory 19 17 19 Rate Blood Pressure 123/66 124/72 119/67 O2 Sat by Pulse 88 87 87 Oximetry 10/23/21 10/23/21 10/23/21 09:45 10:00 10:15 Temperature Pulse Rate 81 80 81 Pulse Rate [ From Monitor] Respiratory 14 18 15 Rate Blood Pressure 122/67 119/65 110/64 O2 Sat by Pulse 87 86 87 Oximetry 10/23/21 10/23/21 10/23/21 10:30 10:45 11:00 Temperature Pulse Rate 82 82 81 Pulse Rate [ From Monitor] Respiratory 14 16 18 Rate Blood Pressure 116/65 119/67 122/72 O2 Sat by Pulse 86 87 87 Oximetry 10/23/21 11:15 Temperature Pulse Rate 80 Pulse Rate [ From Monitor] Respiratory 13 Rate Blood Pressure 117/67 O2 Sat by Pulse 88 Oximetry - Lab 10/23/21 04:45 10/23/21 04:45 Most recent lab results ABG pH 7.167 pH Units (7.350-7.450) L* 10/23/21 08:59 ABG pCO2 71.9 mm Hg 10/23/21 08:59 ABG pO2 66.1 mm Hg (80.0-90.0) L 10/23/21 08:59 ABG HCO3 25.5 mmol/L (20.0-26.0) 10/23/21 08:59 ABG O2 Saturation 89.9 % (95.0-99.0) L 10/23/21 08:59 Calcium 8.2 mg/dL (8.4-10.2) L 10/23/21 04:45 Phosphorus 9.60 mg/dL (2.5-4.5) H 10/23/21 04:45 Magnesium 2.50 mg/dL (1.7-2.3) H 10/23/21 04:45 Urine Creatinine 153.1 mg/dL (0.1-20.0) H 10/21/21 Unknown Urine Sodium 31 mmol/L 10/21/21 Unknown Urine Total Protein 173 mg/dL (5-11.8) H 10/21/21 Unknown Medications & Allergies - Medications Allergies/Adverse Reactions: Allergies No Known Allergies Allergy (Unverified 10/18/21 16:14) Home Medications: Home Medications Medication Instructions Recorded Confirmed Last Taken Type metFORMIN [Glucophage] 500 mg PO BID 10/20/21 10/20/21 Unknown History Active Medications: Generic Name Dose Route Start Last Admin Trade Name Freq PRN Reason Stop Dose Admin Acetaminophen 650 mg 10/20/21 13:30 Acetaminophen 325 Mg/10.15 Ml Oral Liqd Unit Dose FEEDTUBE Q6H PRN Pain MILD(1-3)/Fever >100.5/HUSSEIN Al Hydrox/Mg Hydrox/Simethicone 30 ml 10/20/21 13:30 Alum-Mag Hydroxide-Simethicone [phone]/5ml Oral Liqd 30 Ml PO Q4H PRN Indigestion Lipase/Protease/Amylase 1 each 10/20/21 15:15 Lipase 10,500/Protease 25,000/Amylase 43,750 (Units) Dr Johnson FEEDTUBE PRN PRN For Clogged Feeding Tube Bisacodyl 10 mg 10/20/21 13:30 Bisacodyl 10 Mg Rect Supp LA QDAY PRN constipation unrelieved by MOM Calcium Acetate 1,334 mg 10/23/21 08:00 10/23/21 09:53 Calcium Acetate 667 Mg Cap PO Not Given TID ALBIN Dextrose 50 ml 10/20/21 13:30 Dextrose 50% In Water (25gm) 50 Ml Syringe IV Q30MIN PRN Hypoglycemia Protocol Famotidine 10 mg 10/21/21 10:00 10/23/21 09:52 Famotidine 20 Mg/2 Ml Inj IV 10 mg BID ALBIN Administration Fentanyl 50 mcg 10/20/21 13:25 Fentanyl 100 Mcg/2 Ml Inj IV Q10MIN PRN ANALGESIA Heparin Sodium (Porcine) 5,000 unit 10/20/21 10:41 10/21/21 17:19 Heparin 10,000 Units/10 Ml Vial IV 5,000 unit Q6H PRN Administration Anti-Xa Assay < 0.1 units/ml Hydrophilic Ointment 1 applic 10/20/21 13:25 Lip Therapy Vaseline TP Q2HR PRN Dry Lips Heparin Sodium/Sodium Chloride 25,000 unit in 500 mls @ 30 mls/hr 10/20/21 20:00 10/23/21 08:20 Heparin/ 0.45% Nacl-25,000 Unit/500 Ml IV 750 units/hr TITR ALBIN 15 mls/hr Administration Protocol 1,500 UNITS/HR Midazolam HCl 100 mg/ Sodium 100 mls @ 2 mls/hr 10/20/21 14:00 10/23/21 07:42 Chloride IV 5 mg/hr TITR ALBIN 5 mls/hr Titration Protocol 2 MG/HR Fentanyl Citrate 2,000 mcg in 100 mls @ 7.938 mls/hr 10/20/21 14:00 10/23/21 10:02 Fentanyl Drip Premix IV 4 mcg/kg/hr TITR ALBIN 31.751 mls/hr Administration Protocol 1 MCG/KG/HR Propofol 1,000 mg in 100 mls @ 4.763 mls/hr 10/20/21 14:00 10/23/21 11:29 Diprivan 10 Mg/Ml IV 40 mcg/kg/min TITR ALBIN 38.102 mls/hr Administration Protocol 5 MCG/KG/MIN Sodium Chloride 1,000 mls @ 1 mls/hr 10/20/21 14:30 Nacl 0.9% 500 Ml IV DIRECT PRN ARTERIAL LINE FLUSH Sodium Chloride 100 mls @ 999 mls/hr 10/21/21 09:19 Nacl 0.9% IV MAYLIN PRN Hypotension Sodium Chloride 100 mls @ 999 mls/hr 10/22/21 11:48 Nacl 0.9% IV MAYLIN PRN Hypotension Dexmedetomidine HCl 400 mcg/ 104 mls @ 8.258 mls/hr 10/22/21 16:00 10/23/21 07:42 Sodium Chloride IV 0.2 mcg/kg/hr TITRATE ALBIN 8.258 mls/hr Titration Protocol 0.2 MCG/KG/HR NORepinephrine/NS 8 MG-250 ML 8 mg in 250 mls @ 3.75 mls/hr 10/22/21 18:00 10/23/21 08:20 Norepinephrine/Ns 8 Mg-250 Ml (Double Conc) IV 0 mcg/min TITRATE ALBIN 0 mls/hr Titration Protocol 2 MCG/MIN Insulin Glargine 30 units 10/23/21 22:00 Insulin Glargine 100 Units/Ml SUB-Q QHS ALBIN Insulin Human Lispro 0 unit 10/20/21 12:00 10/23/21 12:12 Insulin Lispro 100 Unit/Ml SUB-Q 4 unit Q6HR ALBIN Administration Protocol Methylprednisolone Sodium Succinate 60 mg 10/22/21 14:00 10/23/21 05:49 Methylprednisolone Sod Succinate 125 Mg/2 Ml Inj IV Not Given Q8HR [facility] Midazolam HCl 2 mg 10/20/21 13:25 10/23/21 04:20 Midazolam 2 Mg/2 Ml Inj IV 2 mg Q10MIN PRN Administration Sedation Multi-Ingred Cream/Lotion/Oil/Oint 1 applic 10/20/21 13:25 Mineral Oil/Petrolatum, White Ophth Oint 3.5 Gm OU Q4HR PRN Dry Eye(s) Ondansetron HCl 4 mg 10/19/21 04:21 Ondansetron 4 Mg/2 Ml Inj IV Q8H PRN Nausea And Vomiting Oseltamivir Phosphate 30 mg 10/21/21 22:00 10/22/21 21:26 Oseltamivir Phosphate 30 Mg Cap PO 10/23/21 22:01 30 mg Q24H ALBIN Administration Promethazine HCl 25 mg 10/19/21 04:38 10/20/21 05:06 Promethazine 25 Mg Tab PO 25 mg Q6H PRN Administration Nausea And Vomiting Senna 8.8 mg 10/20/21 22:00 10/23/21 09:52 Sennosides Oral Liqd 8.8 Mg/5 Ml Oral Liqd FEEDTUBE 8.8 mg BID ALBIN Administration Simple Syrup 15 ml 10/20/21 15:15 Simple Syrup 15 Ml FEEDTUBE PRN PRN Hypoglycemia Simple Syrup 30 ml 10/20/21 15:15 Simple Syrup 15 Ml FEEDTUBE PRN PRN Hypoglycemia Sodium Bicarbonate 325 mg 10/20/21 15:15 Sodium Bicarbonate 325 Mg Tab FEEDTUBE PRN PRN For Clogged Feeding Tube Sodium Chloride 10 ml 10/19/21 10:00 10/23/21 09:52 Sodium Chloride 0.9% 10 Ml Flush Syringe IV 10 ml BID ALBIN Administration Sodium Chloride 10 ml 10/19/21 04:26 Sodium Chloride 0.9% 10 Ml Flush Syringe IV PRN PRN flush prior to & after IV med Sodium Polystyrene Sulfonate 60 gm 10/23/21 12:05 Sodium Polystyrene 15 Gm/60 Ml Oral Liqd PO 10/23/21 12:06 ONCE ONE
[2021-10-23] MEDS ORDERED: SODIUM POLYSTYRENE 15 GM/60 ML ORAL LIQD PO NR (12:30)
--- NOTE | 2021-10-23 13:22 | Progress Note ---
<JANNACANDACE YovanaKelly - Last Filed: 10/23/21 13:18> Assessment and Plan Assessment and plan: This is a 26-year-old male with HTN, DM, asthma and gout admitted with COVID-19 pneumonia and pulmonary embolism. Neuro: Self-reported anxiety -S/p Precedex drip and Ativan as needed -Currently sedated on propofol, fentanyl Versed and Precedex -RASS goal -2 to 3 and vent synchrony -Bilateral soft restraints in place for safety -Avoid delirium -Maintain sleep-wake cycle Cardio: Cardiomegaly on cxr, h/o HTN -CTA chest showed mild cardiomegaly without evidence of right heart strain -Hold home antihypertensive regimen -Blood pressure monitoring per protocol -Christi placed 10/21 -Echo shows Normal echocardiogram, LV EF within normal range of 50 to 55%, mild diastolic dysfunction evidenced by impaired relaxation pattern, no pericardial effusion -Vasopressor support with Levophed if needed -Goal MAP greater than 65 Respiratory: Acute hypoxic respiratory failure, h/o asthma -S/p BiPAP and OptiFlow/nonrebreather -CCM consulted, appreciate recommendations -Intubated on 10/20 with 8.00 ETT at 24 cm at the right lip -VAP bundle -CXR and ABG noted -AM vent settings: Assist control tidal volume 500, rate 18, PEEP 18, FiO2 100% -See RT notes for titration -CCM increase tidal volume to 525 -Daily CXR and ABGs GI: Morbid obesity, hepatic steatosis, transaminitis -CTA chest showed hepatic steatosis -Nutrition consult for tube feeding -On hold due to high residuals -BR: Senokot -PPI -24-hour +733 mL -Removed 3 L with HD yesterday -Acute hepatitis panel negative : Rhabdomyolysis, Severe hyperkalemia, Acute renal injury -Cr/BUN 0.8/20 and increased to 2.3/43 10/21 prompting renal consult and initiation of dialysis -nephrology consulted, appreciate recommendations -renal US in progress -10/21 FeNa at 0.4 indicating prerenal -HD to be initiated 10/21 -HD per nephrology -Strict intake and output with Scott catheter -Intervene with electrolytes as needed -S/p IV fluids for 24 hours -Trend BMP -Phosphate binder (dose increased) -Kayexalate per renal ID: COVID-19 pneumonia and influenza -CTA chest showed bilateral lung infiltrates concerning for atypical pneumonia -Infectious disease consulted, appreciate recommendations -Droplet/isolation precautions -IV dexamethasone for 10 days () -Twice daily dosing for morbid obesity -Steroids changed to methylprednisone 60 every 8 per CCM -S/p Actemra 10/20/2021 -Tamiflu for 5 days () -Procal 0.49 -Antibiotic therapy: Azithromycin (), Rocephin (10/19 -10/23) -S/p IV remdesivir x1 on 10/20 -Trend COVID-19 inflammatory markers -Anticoagulation for pulmonary embolism Endo: Hyperglycemia, h/o DM -SSI -Accu-Cheks every 6, high-dose scale and long-acting insulin (titrate as needed) -Avoid hypoglycemia -Hemoglobin A1c 7.9 Heme: Pulmonary embolism -CTA chest showed pulmonary embolus without evidence of right heart strain -Systemic anticoagulation with heparin drip -Bilateral lower extremity SCDs while in bed -Trend CBC -Transfuse for hemoglobin less than 7 The high probability of a clinically significant, sudden or life threatening deterioration of the [multi] system(s) required my full and direct attention, intervention and personal management. The aggregate critical care time was [90] minutes. This time is in addition to time spent performing reported procedures but includes the following: [x] Data Review and interpretation [x] Patient assessment and monitoring of vital signs [x] Documentation [x] Medication orders and management Disposition Plan: ICU Total Time Spent with Patient (Minutes): 90 History Interval history: This is a 26-year-old male with HTN, DM, asthma and gout who presented to the emergency department on 10/18 with complaints of increasing shortness of breath over the past 3 days and states that he was diagnosed with Covid and flu couple days ago. Patient was given Zithromax and steroids outpatient however his anxiety and shortness of breath increased over the past 3 days prompting a visit to the emergency department. In the emergency department patient's oxygen saturations were 90% on nonrebreather and CT chest showed bilateral pulmonary embolism. Of note he is not vaccinated against COVID-19. Patient was admitted to the hospitalist service with consults to infectious disease. 10/19: Patient is currently anxious and restless with moderate respiratory distress. He is hypoxic and needing nasal cannula to and NRB alternately. BP and pulse stable. Patient has dry cough. Afebrile. No acute GI symptoms currently. 10/20: Patient was a code met from the floor to ICU. Patient was initially placed on BiPAP however due to his anxiety he was unable to tolerate and ul timately was intubated. Patient is currently sedated on fentanyl and Versed. Central line and Scott catheter placed today. Bilateral respirations in place. and mother updated at bedside today. 10/21: BUN/Cr increase noted and nephro consulted. Nephro will like to start HD. Femoral vascath placement delayed d/t elevated aPTT and renal US. CCM made changes to vent. Hyperkalemia medically treated. and mother updated at bedside by HEADMASTER/MISTRESS. Vascath and christi placed. HD RN aware 10/22: HD planned for today, steroids changed to Solu-Medrol 60 every 8 and long-acting insulin. Patient is stacking breaths and SPO2 in the upper 80s. We will add Precedex for increased sedation. Increasing FiO2 due to desaturation overnight. 10/23: Nephrology will medically treat potassium and HD tomorrow, increase in vent settings overnight due to hypoxia. Remains sedated on Precedex, fentanyl, Versed and propofol. Increase in Lantus today, tube feedings held due to high residuals, increase in total volume. and mother updated at bedside today. HD removed 3 L of fluid yesterday per HD nurse documentation. Hospitalist Physical - Constitutional Vitals: Temp Pulse Resp BP Pulse Ox 98.8 F 80 13 117/67 88 10/23/21 04:00 10/23/21 11:15 10/23/21 11:15 10/23/21 11:15 10/23/21 11:15 General appearance: Present: no acute distress, well-nourished, obese (Morbid obese with BMI 47), other (sedated) - EENT Eyes: Present: PERRL ENT: dentition normal - Neck Neck: Present: other - Respiratory Respiratory effort: normal Respiratory: bilateral: diminished - Cardiovascular Rhythm: regular Heart Sounds: Present: S1 & S2. Absent: systolic murmur, diastolic murmur - Extremities Extremities: no ischemia, pulses intact, pulses symmetrical, normal temperature, normal color Extremity abnormal: edema Peripheral Pulses: within normal limits - Abdominal General gastrointestinal: soft, non-tender, non-distended, normal bowel sounds - Integumentary Integumentary: Present: warm, dry - Psychiatric Psychiatric: other (Sedated) - Neurologic Neurologic: other (Sedated, bilateral restraints in place, and pupils equal round reactive) - Allied Health Allied health notes reviewed: nursing, RT, social work HEART Score - HEART Score EKG: Normal Age: < 45 Risk factors: 1-2 risk factors Troponin: Troponin T < 0.010 ng/mL (0.00-0.029) 10/18/21 16:39 Troponin: < normal limit - Critical Actions Critical Actions: 0-3 pts:0.9-1.7%risk of adverse cardiac event.Candidate for discharge Results - Labs CBC & Chem 7: 10/23/21 04:45 10/23/21 04:45 Labs: Laboratory Last Values WBC 5.7 K/mm3 (4.5-11.0) 10/23/21 04:45 RBC 4.68 M/mm3 (3.65-5.03) 10/23/21 04:45 Hgb 11.5 gm/dl (11.8-15.2) L 10/23/21 04:45 Hct 37.6 % (35.5-45.6) 10/23/21 04:45 MCV 81 fl (84-94) L 10/23/21 04:45 MCH 25 pg (28-32) L 10/23/21 04:45 MCHC 31 % (32-34) L 10/23/21 04:45 RDW 15.3 % (13.2-15.2) H 10/23/21 04:45 Plt Count 407 K/mm3 (140-440) 10/23/21 04:45 Lymph % (Auto) 4.9 % (13.4-35.0) L 10/19/21 23:52 Ware % (Auto) 5.3 % (0.0-7.3) 10/19/21 23:52 Eos % (Auto) 0.0 % (0.0-4.3) 10/19/21 23:52 Baso % (Auto) 0.1 % (0.0-1.8) 10/19/21 23:52 Lymph # (Auto) 0.5 K/mm3 (1.2-5.4) L 10/19/21 23:52 Ware # (Auto) 0.5 K/mm3 (0.0-0.8) 10/19/21 23:52 Eos # (Auto) 0.0 K/mm3 (0.0-0.4) 10/19/21 23:52 Baso # (Auto) 0.0 K/mm3 (0.0-0.1) 10/19/21 23:52 Seg Neutrophils % 89.7 % (40.0-70.0) H 10/19/21 23:52 Seg Neutrophils # 8.9 K/mm3 (1.8-7.7) H 10/19/21 23:52 PT 14.8 Sec. (12.2-14.9) 10/20/21 13:30 INR 1.05 (0.87-1.13) 10/20/21 13:30 APTT 36.1 Sec. (24.2-36.6) 10/20/21 13:30 D-Dimer 1019.09 ng/mlDDU (0-234) H 10/23/21 04:45 Heparin Anti-Xa Level 0.35 U.I./ml (0.3-0.7) 10/23/21 04:45 ABG pH 7.167 pH Units (7.350-7.450) L* 10/23/21 08:59 POC ABG pCO2 69.9 mmHg (32.0-48.0) H 10/21/21 09:34 ABG pCO2 71.9 mm Hg 10/23/21 08:59 POC ABG pO2 65.6 mmHg (83-108) L 10/21/21 09:34 ABG pO2 66.1 mm Hg (80.0-90.0) L 10/23/21 08:59 POC ABG HCO3 24.5 10/21/21 09:34 ABG HCO3 25.5 mmol/L (20.0-26.0) 10/23/21 08:59 ABG O2 Saturation 89.9 % (95.0-99.0) L 10/23/21 08:59 ABG O2 Content 16.5 (0.0-44) 10/23/21 08:59 POC ABG Base Excess -5.4 10/21/21 09:34 ABG Base Excess -4.5 mmol/L (-2.0-3.0) L 10/23/21 08:59 ABG Hemoglobin 13.3 gm/dl (14.0-18.0) L 10/23/21 08:59 ABG Oxyhemoglobin 89.7 (94-98) L 10/21/21 09:34 ABG Carboxyhemoglobin 1.1 % (0.0-5.0) 10/23/21 08:59 ABG Methemoglobin 0.6 % (0.0-1.5) 10/23/21 08:59 ABG Sodium 138.1 mmol/L (136.0-145.0) 10/21/21 09:34 ABG Potassium 6.5 mmol/L (3.40-4.50) H 10/21/21 09:34 ABG Chloride 102.0 mmol/L (98-107) 10/21/21 09:34 ABG Glucose 190 mg/dL (65-95) H 10/21/21 09:34 Oxyhemoglobin 88.4 % (95.0-99.0) L 10/23/21 08:59 Carboxyhemoglobin 0.4 (0.5-1.5) L 10/21/21 09:34 FiO2 100 % 10/23/21 08:59 FiO2 % 100.0 10/21/21 09:34 Sodium 129 mmol/L (137-145) L D 10/23/21 04:45 Potassium 5.9 mmol/L (3.6-5.0) H 10/23/21 04:45 Chloride 90.7 mmol/L (98-107) L 10/23/21 04:45 Carbon Dioxide 22 mmol/L (22-30) 10/23/21 04:45 Anion Gap 22 mmol/L 10/23/21 04:45 BUN 65 mg/dL (9-20) H 10/23/21 04:45 Creatinine 4.4 mg/dL (0.8-1.3) H 10/23/21 04:45 Estimated GFR 19 ml/min 10/23/21 04:45 BUN/Creatinine Ratio 15 % 10/23/21 04:45 Glucose 329 mg/dL (75-100) H 10/23/21 04:45 POC Glucose 333 mg/dL (70-105) H 10/23/21 12:05 Hemoglobin A1c 7.9 % (4-6) H 10/19/21 23:52 Lactic Acid 1.40 mmol/L (0.7-2.0) 10/18/21 16:39 Calcium 8.2 mg/dL (8.4-10.2) L 10/23/21 04:45 Phosphorus 9.60 mg/dL (2.5-4.5) H 10/23/21 04:45 Magnesium 2.50 mg/dL (1.7-2.3) H 10/23/21 04:45 Ferritin 1550.0 ng/mL (30.0-300.0) H 10/21/21 02:16 Total Bilirubin 0.20 mg/dL (0.1-1.2) 10/23/21 04:45 AST 181 units/L (5-40) H 10/23/21 04:45 ALT 227 units/L (7-56) H 10/23/21 04:45 Alkaline Phosphatase 71 units/L (35-129) 10/23/21 04:45 Lactate Dehydrogenase 712 units/L (91-180) H 10/23/21 04:45 Total Creatine Kinase 1484 units/L (55-170) H 10/18/21 16:39 CK-MB (CK-2) 3.3 ng/mL (0.0-4.0) 10/18/21 16:39 CK-MB (CK-2) Rel Index 0.2 (0-4) 10/18/21 16:39 Troponin T < 0.010 ng/mL (0.00-0.029) 10/18/21 16:39 C-Reactive Protein 6.40 mg/dL (0.00-1.30) H 10/23/21 04:45 Total Protein 7.5 g/dL (6.3-8.2) 10/23/21 04:45 Albumin 3.3 g/dL (3.9-5) L 10/23/21 04:45 Albumin/Globulin Ratio 0.8 % 10/23/21 04:45 Triglycerides 390 mg/dL (2-149) H 10/22/21 02:50 Lipase 15 units/L (13-60) 10/18/21 16:39 Procalcitonin 0.49 ng/mL (<0.15) 10/19/21 23:52 Arterial Blood Glucose 190 mg/dL (65-95) H 10/21/21 09:34 Arterial Blood Ionized Calcium 4.2 mg/dL (4.6-5.3) L 10/21/21 09:34 Urine Color Yellow (Yellow) 10/18/21 22:26 Urine Turbidity Clear (Clear) 10/18/21 22:26 Urine pH 6.0 (5.0-7.0) 10/18/21 22:26 Ur Specific Ensign 1.025 (1.003-1.030) 10/18/21 22:26 Urine Protein 100 mg/dl mg/dL (Negative) 10/18/21 22:26 Urine Glucose (UA) Neg mg/dL (Negative) 10/18/21 22: Urine Ketones Neg mg/dL (Negative) 10/18/21 22:26 Urine Blood Sm (Negative) 10/18/21 22:26 Urine Nitrite Neg (Negative) 10/18/21 22:26 Urine Bilirubin Neg (Negative) 10/18/21 22:26 Urine Urobilinogen < 2.0 mg/dL (<2.0) 10/18/21 22:26 Ur Leukocyte Esterase Neg (Negative) 10/18/21 22:26 Urine WBC (Auto) < 1.0 /HPF (0.0-6.0) 10/18/21 22:26 Urine RBC (Auto) < 1.0 /HPF (0.0-6.0) 10/18/21 22: U Epithel Cells (Auto) < 1.0 /HPF (0-13.0) 10/18/21 22: Urine Bacteria (Auto) 1+ /HPF (Negative) 10/18/21 22:26 Urine Creatinine 153.1 mg/dL (0.1-20.0) H 10/21/21 Unknown Urine Sodium 31 mmol/L 10/21/21 Unknown Urine Total Protein 173 mg/dL (5-11.8) H 10/21/21 Unknown Coronavirus (PCR) Positive (Negative) A 10/19/21 08:24 Hepatitis A IgM Ab Non-reactive (NonReactive) 10/19/21 23:52 Hep Bs Antigen Nonreactive (Negative) 10/19/21 23:52 Hep B Core IgM Ab Non-reactive (NonReactive) 10/19/21 23:52 Hepatitis C Antibody Non-reactive (NonReactive) 10/19/21 23:52 Microbiology: Microbiology 10/18/21 16:39 Peripheral/Venous Blood Culture - Preliminary NO GROWTH AFTER 4 DAYS 10/18/21 16:47 Peripheral/Venous Blood Culture - Preliminary NO GROWTH AFTER 4 DAYS 10/20/21 14:50 Tracheal Aspirate Sputum Culture - Preliminary Scott/IV: Voiding Method Indwelling Catheter Active Medications - Current Medications Current Medications: Generic Name Dose Route Start Last Admin Trade Name Freq PRN Reason Stop Dose Admin Acetaminophen 650 mg 10/20/21 13:30 Acetaminophen 325 Mg/10.15 Ml Oral Liqd Unit Dose FEEDTUBE Q6H PRN Pain MILD(1-3)/Fever >100.5/HUSSEIN Al Hydrox/Mg Hydrox/Simethicone 30 ml 10/20/21 13:30 Alum-Mag Hydroxide-Simethicone 801-569-48dv/5ml Oral Liqd 30 Ml PO Q4H PRN Indigestion Lipase/Protease/Amylase 1 each 10/20/21 15:15 Lipase 10,500/Protease 25,000/Amylase 43,750 (Units) Dr Cap FEEDTUBE PRN PRN For Clogged Feeding Tube Bisacodyl 10 mg 10/20/21 13:30 Bisacodyl 10 Mg Rect Supp MA QDAY PRN constipation unrelieved by MOM Calcium Acetate 1,334 mg 10/23/21 08:00 10/23/21 09:53 Calcium Acetate 667 Mg Cap PO Not Given TID ALBIN Dextrose 50 ml 10/20/21 13:30 Dextrose 50% In Water (25gm) 50 Ml Syringe IV Q30MIN PRN Hypoglycemia Protocol Famotidine 10 mg 10/21/21 10:00 10/23/21 09:52 Famotidine 20 Mg/2 Ml Inj IV 10 mg BID ALBIN Administration Fentanyl 50 mcg 10/20/21 13:25 Fentanyl 100 Mcg/2 Ml Inj IV Q10MIN PRN ANALGESIA Heparin Sodium (Porcine) 5,000 unit 10/20/21 10:41 10/21/21 17:19 Heparin 10,000 Units/10 Ml Vial IV 5,000 unit Q6H PRN Administration Anti-Xa Assay < 0.1 units/ml Hydrophilic Ointment 1 applic 10/20/21 13:25 Lip Therapy Vaseline TP Q2HR PRN Dry Lips Heparin Sodium/Sodium Chloride 25,000 unit in 500 mls @ 30 mls/hr 10/20/21 20:00 10/23/21 08:20 Heparin/ 0.45% Nacl-25,000 Unit/500 Ml IV 750 units/hr TITR ALBIN 15 mls/hr Administration Protocol 1,500 UNITS/HR Midazolam HCl 100 mg/ Sodium 100 mls @ 2 mls/hr 10/20/21 14:00 10/23/21 07:42 Chloride IV 5 mg/hr TITR ALBIN 5 mls/hr Titration Protocol 2 MG/HR Fentanyl Citrate 2,000 mcg in 100 mls @ 7.938 mls/hr 10/20/21 14:00 10/23/21 12:55 Fentanyl Drip Premix IV 4 mcg/kg/hr TITR ALBIN 31.751 mls/hr Administration Protocol 1 MCG/KG/HR Propofol 1,000 mg in 100 mls @ 4.763 mls/hr 10/20/21 14:00 10/23/21 11:29 Diprivan 10 Mg/Ml IV 40 mcg/kg/min TITR ALBIN 38.102 mls/hr Administration Protocol 5 MCG/KG/MIN Sodium Chloride 1,000 mls @ 1 mls/hr 10/20/21 14:30 Nacl 0.9% 500 Ml IV DIRECT PRN ARTERIAL LINE FLUSH Sodium Chloride 100 mls @ 999 mls/hr 10/21/21 09:19 Nacl 0.9% IV MAYLIN PRN Hypotension Sodium Chloride 100 mls @ 999 mls/hr 10/22/21 11:48 Nacl 0.9% IV MAYLIN PRN Hypotension Dexmedetomidine HCl 400 mcg/ 104 mls @ 8.258 mls/hr 10/22/21 16:00 10/23/21 07:42 Sodium Chloride IV 0.2 mcg/kg/hr TITRATE ALBIN 8.258 mls/hr Titration Protocol 0.2 MCG/KG/HR NORepinephrine/NS 8 MG-250 ML 8 mg in 250 mls @ 3.75 mls/hr 10/22/21 18:00 10/23/21 08:20 Norepinephrine/Ns 8 Mg-250 Ml (Double Conc) IV 0 mcg/min TITRATE ALBIN 0 mls/hr Titration Protocol 2 MCG/MIN Insulin Glargine 30 units 10/23/21 22:00 Insulin Glargine 100 Units/Ml SUB-Q QHS ALBIN Insulin Human Lispro 0 unit 10/20/21 12:00 10/23/21 12:12 Insulin Lispro 100 Unit/Ml SUB-Q 4 unit Q6HR ALBIN Administration Protocol Methylprednisolone Sodium Succinate 60 mg 10/22/21 14:00 10/23/21 05:49 Methylprednisolone Sod Succinate 125 Mg/2 Ml Inj IV Not Given Q8HR ALBIN Midazolam HCl 2 mg 10/20/21 13:25 10/23/21 04:20 Midazolam 2 Mg/2 Ml Inj IV 2 mg Q10MIN PRN Administration Sedation Multi-Ingred Cream/Lotion/Oil/Oint 1 applic 10/20/21 13:25 Mineral Oil/Petrolatum, White Ophth Oint 3.5 Gm OU Q4HR PRN Dry Eye(s) Ondansetron HCl 4 mg 10/19/21 04:21 Ondansetron 4 Mg/2 Ml Inj IV Q8H PRN Nausea And Vomiting Oseltamivir Phosphate 30 mg 10/21/21 22:00 10/22/21 21:26 Oseltamivir Phosphate 30 Mg Cap PO 10/23/21 22:01 30 mg Q24H ALBIN Administration Promethazine HCl 25 mg 10/19/21 04:38 10/20/21 05:06 Promethazine 25 Mg Tab PO 25 mg Q6H PRN Administration Nausea And Vomiting Senna 8.8 mg 10/20/21 22:00 10/23/21 09:52 Sennosides Oral Liqd 8.8 Mg/5 Ml Oral Liqd FEEDTUBE 8.8 mg BID ALBIN Administration Simple Syrup 15 ml 10/20/21 15:15 Simple Syrup 15 Ml FEEDTUBE PRN PRN Hypoglycemia Simple Syrup 30 ml 10/20/21 15:15 Simple Syrup 15 Ml FEEDTUBE PRN PRN Hypoglycemia Sodium Bicarbonate 325 mg 10/20/21 15:15 Sodium Bicarbonate 325 Mg Tab FEEDTUBE PRN PRN For Clogged Feeding Tube Sodium Chloride 10 ml 10/19/21 10:00 10/23/21 09:52 Sodium Chloride 0.9% 10 Ml Flush Syringe IV 10 ml BID ALBIN Administration Sodium Chloride 10 ml 10/19/21 04:26 Sodium Chloride 0.9% 10 Ml Flush Syringe IV PRN PRN flush prior to & after IV med Sodium Polystyrene Sulfonate 60 gm 10/23/21 12:30 10/23/21 12:55 Sodium Polystyrene 15 Gm/60 Ml Oral Liqd PO 10/23/21 14:00 60 gm ONCE@1230 NR Administration Nutrition/Malnutrition Assess - Dietary Evaluation Nutrition/Malnutrition Findings: Nutrition Notes Start: 10/19/21 14:34 Freq: Status: Active Protocol: Document 10/21/21 10:33 REESE (Rec: 10/21/21 10:53 REESE [id number]) Nutrition Notes Initial or Follow up Reassessment Current Diagnosis Diabetes,Hypertension, Respiratory Failure Other Pertinent Diagnosis COVID-19 pneu, hepatic steatosis, asthma, gout, pulmonary embolism Current Diet TF - Glucerna 1.2 at 108ml/hr Labs/Tests Na 136 K 7 BUN 43 Cr 2.3 BG 210 Phos 10.4 Mg 3 Pertinent Medications Decadron, Heparin gtt, Propofol at 14.288ml/hr ( provides 377 kcal), Senokot Height 6 ft Weight 158.757 kg [place] Body Weight (kg) 80.90 BMI 47.5 Weight Status Morbidly Obese Subjective/Other Information Pt remains on vent support. RN unable to locate Glucerna TF formula, so started Nepro instead. Burn Absent Trauma Absent Minimum of two criteria No #1 Nutrition Diagnosis Inadequate energy intake, Inadequate oral intake Comments: CHANGED Etiology [facility] ventilation As Evidenced by Signs and Symptoms pt NPO Diagnosis Progress(for reassessment Continues documentation) Is patient on ventilator? Yes Is Patient Ambulatory and/or Out of Bed No REE-([facility]-confined to bed) [phone] Calculation Used for Recommendations 70-80% energy needs Additional Notes Pro needs 1.3g/kg adjBW: 156g/ day Fluid needs 1ml/kcal Nutrition Intervention Nutrition Support: Change TF formula to Nepro at 53ml/hr. Provide 230ml water flush q4h. Kcal 2,290 Protein (gm) 103 Carbohydrates (gm) 205 Fat (gm) 122 Fluid (mL) 925 Fiber (gm) 16 Goal #1 TF tolerance Goal #2 TF to meet nutrient needs as best possible Follow-Up By: 10/24/21 Additional Comments F/U: TF tolerance, renal function, vent status, propofol <RAYSHAWN MEHTAKAT R - Last Filed: 10/23/21 22:42> History Interval history: Attendings note: Patient seen and examined, discussed with expectoration. Patient remains severely hypoxic and vent dependent without much improvement, needing 100% FiO2. Renal failure worsening with hyperkalemia. Prognosis remains guarded. Hospitalist Physical - Constitutional Vitals: Temp Pulse Resp BP Pulse Ox 98.3 F 71 17 134/72 89 10/23/21 20:00 10/23/21 22:00 10/23/21 22:00 10/23/21 22:00 10/23/21 22:00 HEART Score - HEART Score Troponin: Troponin T < 0.010 ng/mL (0.00-0.029) 10/18/21 16:39 Results - Labs CBC & Chem 7: 10/23/21 04:45 10/23/21 04:45 Labs: Laboratory Last Values WBC 5.7 K/mm3 (4.5-11.0) 10/23/21 04:45 RBC 4.68 M/mm3 (3.65-5.03) 10/23/21 04:45 Hgb 11.5 gm/dl (11.8-15.2) L 10/23/21 04:45 Hct 37.6 % (35.5-45.6) 10/23/21 04:45 MCV 81 fl (84-94) L 10/23/21 04:45 MCH 25 pg (28-32) L 10/23/21 04:45 MCHC 31 % (32-34) L 10/23/21 04:45 RDW 15.3 % (13.2-15.2) H 10/23/21 04:45 Plt Count 407 K/mm3 (140-440) 10/23/21 04:45 Lymph % (Auto) 4.9 % (13.4-35.0) L 10/19/21 23:52 Ware % (Auto) 5.3 % (0.0-7.3) 10/19/21 23:52 Eos % (Auto) 0.0 % (0.0-4.3) 10/19/21 23:52 Baso % (Auto) 0.1 % (0.0-1.8) 10/19/21 23:52 Lymph # (Auto) 0.5 K/mm3 (1.2-5.4) L 10/19/21 23:52 Ware # (Auto) 0.5 K/mm3 (0.0-0.8) 10/19/21 23:52 Eos # (Auto) 0.0 K/mm3 (0.0-0.4) 10/19/21 23:52 Baso # (Auto) 0.0 K/mm3 (0.0-0.1) 10/19/21 23:52 Seg Neutrophils % 89.7 % (40.0-70.0) H 10/19/21 23:52 Seg Neutrophils # 8.9 K/mm3 (1.8-7.7) H 10/19/21 23:52 PT 14.8 Sec. (12.2-14.9) 10/20/21 13:30 INR 1.05 (0.87-1.13) 10/20/21 13:30 APTT 36.1 Sec. (24.2-36.6) 10/20/21 13:30 D-Dimer 1019.09 ng/mlDDU (0-234) H 10/23/21 04:45 Heparin Anti-Xa Level 0.35 U.I./ml (0.3-0.7) 10/23/21 04:45 ABG pH 7.167 pH Units (7.350-7.450) L* 10/23/21 08:59 POC ABG pCO2 69.9 mmHg (32.0-48.0) H 10/21/21 09:34 ABG pCO2 71.9 mm Hg 10/23/21 08:59 POC ABG pO2 65.6 mmHg (83-108) L 10/21/21 09:34 ABG pO2 66.1 mm Hg (80.0-90.0) L 10/23/21 08:59 POC ABG HCO3 24.5 10/21/21 09:34 ABG HCO3 25.5 mmol/L (20.0-26.0) 10/23/21 08:59 ABG O2 Saturation 89.9 % (95.0-99.0) L 10/23/21 08:59 ABG O2 Content 16.5 (0.0-44) 10/23/21 08:59 POC ABG Base Excess -5.4 10/21/21 09:34 ABG Base Excess -4.5 mmol/L (-2.0-3.0) L 10/23/21 08:59 ABG Hemoglobin 13.3 gm/dl (14.0-18.0) L 10/23/21 08:59 ABG Oxyhemoglobin 89.7 (94-98) L 10/21/21 09:34 ABG Carboxyhemoglobin 1.1 % (0.0-5.0) 10/23/21 08:59 ABG Methemoglobin 0.6 % (0.0-1.5) 10/23/21 08:59 ABG Sodium 138.1 mmol/L (136.0-145.0) 10/21/21 09:34 ABG Potassium 6.5 mmol/L (3.40-4.50) H 10/21/21 09:34 ABG Chloride 102.0 mmol/L (98-107) 10/21/21 09:34 ABG Glucose 190 mg/dL (65-95) H 10/21/21 09:34 Oxyhemoglobin 88.4 % (95.0-99.0) L 10/23/21 08:59 Carboxyhemoglobin 0.4 (0.5-1.5) L 10/21/21 09:34 FiO2 100 % 10/23/21 08:59 FiO2 % 100.0 10/21/21 09:34 Sodium 129 mmol/L (137-145) L D 10/23/21 04:45 Potassium 5.9 mmol/L (3.6-5.0) H 10/23/21 04:45 Chloride 90.7 mmol/L (98-107) L 10/23/21 04:45 Carbon Dioxide 22 mmol/L (22-30) 10/23/21 04:45 Anion Gap 22 mmol/L 10/23/21 04:45 BUN 65 mg/dL (9-20) H 10/23/21 04:45 Creatinine 4.4 mg/dL (0.8-1.3) H 10/23/21 04:45 Estimated GFR 19 ml/min 10/23/21 04:45 BUN/Creatinine Ratio 15 % 10/23/21 04:45 Glucose 329 mg/dL (75-100) H 10/23/21 04:45 POC Glucose 333 mg/dL (70-105) H 10/23/21 12:05 Hemoglobin A1c 7.9 % (4-6) H 10/19/21 23:52 Lactic Acid 1.40 mmol/L (0.7-2.0) 10/18/21 16:39 Calcium 8.2 mg/dL (8.4-10.2) L 10/23/21 04:45 Phosphorus 9.60 mg/dL (2.5-4.5) H 10/23/21 04:45 Magnesium 2.50 mg/dL (1.7-2.3) H 10/23/21 04:45 Ferritin 1550.0 ng/mL (30.0-300.0) H 10/21/21 02:16 Total Bilirubin 0.20 mg/dL (0.1-1.2) 10/23/21 04:45 AST 181 units/L (5-40) H 10/23/21 04:45 ALT 227 units/L (7-56) H 10/23/21 04:45 Alkaline Phosphatase 71 units/L (35-129) 10/23/21 04:45 Lactate Dehydrogenase 712 units/L (91-180) H 10/23/21 04:45 Total Creatine Kinase 1484 units/L (55-170) H 10/18/21 16:39 CK-MB (CK-2) 3.3 ng/mL (0.0-4.0) 10/18/21 16:39 CK-MB (CK-2) Rel Index 0.2 (0-4) 10/18/21 16:39 Troponin T < 0.010 ng/mL (0.00-0.029) 10/18/21 16:39 C-Reactive Protein 6.40 mg/dL (0.00-1.30) H 10/23/21 04:45 Total Protein 7.5 g/dL (6.3-8.2) 10/23/21 04:45 Albumin 3.3 g/dL (3.9-5) L 10/23/21 04:45 Albumin/Globulin Ratio 0.8 % 10/23/21 04:45 Triglycerides 390 mg/dL (2-149) H 10/22/21 02:50 Lipase 15 units/L (13-60) 10/18/21 16:39 Procalcitonin 0.49 ng/mL (<0.15) 10/19/21 23:52 Arterial Blood Glucose 190 mg/dL (65-95) H 10/21/21 09:34 Arterial Blood Ionized Calcium 4.2 mg/dL (4.6-5.3) L 10/21/21 09:34 Urine Color Yellow (Yellow) 10/18/21 22:26 Urine Turbidity Clear (Clear) 10/18/21 22:26 Urine pH 6.0 (5.0-7.0) 10/18/21 22:26 Ur Specific Ensign 1.025 (1.003-1.030) 10/18/21 22:26 Urine Protein 100 mg/dl mg/dL (Negative) 10/18/21 22:26 Urine Glucose (UA) Neg mg/dL (Negative) 10/18/21 22: Urine Ketones Neg mg/dL (Negative) 10/18/21 22:26 Urine Blood Sm (Negative) 10/18/21 22:26 Urine Nitrite Neg (Negative) 10/18/21 22:26 Urine Bilirubin Neg (Negative) 10/18/21 22:26 Urine Urobilinogen < 2.0 mg/dL (<2.0) 10/18/21 22:26 Ur Leukocyte Esterase Neg (Negative) 10/18/21 22:26 Urine WBC (Auto) < 1.0 /HPF (0.0-6.0) 10/18/21 22:26 Urine RBC (Auto) < 1.0 /HPF (0.0-6.0) 10/18/21 22: U Epithel Cells (Auto) < 1.0 /HPF (0-13.0) 10/18/21 22:26 Urine Bacteria (Auto) 1+ /HPF (Negative) 10/18/21 22:26 Urine Creatinine 153.1 mg/dL (0.1-20.0) H 10/21/21 Unknown Urine Sodium 31 mmol/L 10/21/21 Unknown Urine Total Protein 173 mg/dL (5-11.8) H 10/21/21 Unknown Coronavirus (PCR) Positive (Negative) A 10/19/21 08:24 Hepatitis A IgM Ab Non-reactive (NonReactive) 10/19/21 23:52 Hep Bs Antigen Nonreactive (Negative) 10/19/21 23:52 Hep B Core IgM Ab Non-reactive (NonReactive) 10/19/21 23:52 Hepatitis C Antibody Non-reactive (NonReactive) 10/19/21 23:52 Microbiology: Microbiology 10/18/21 16:39 Peripheral/Venous Blood Culture - Final NO GROWTH AFTER 5 DAYS 10/18/21 16:47 Peripheral/Venous Blood Culture - Final NO GROWTH AFTER 5 DAYS Scott/IV: Voiding Method Indwelling Catheter Active Medications - Current Medications Current Medications: Generic Name Dose Route Start Last Admin Trade Name Freq PRN Reason Stop Dose Admin Acetaminophen 650 mg 10/20/21 13:30 Acetaminophen 325 Mg/10.15 Ml Oral Liqd Unit Dose FEEDTUBE Q6H PRN Pain MILD(1-3)/Fever >100.5/HUSSEIN Al Hydrox/Mg Hydrox/Simethicone 30 ml 10/20/21 13:30 Alum-Mag Hydroxide-Simethicone [phone]/5ml Oral Liqd 30 Ml PO Q4H PRN Indigestion Lipase/Protease/Amylase 1 each 10/20/21 15:15 Lipase 10,500/Protease 25,000/Amylase 43,750 (Units) Dr Johnson FEEDTUBE PRN PRN For Clogged Feeding Tube Bisacodyl 10 mg 10/20/21 13:30 Bisacodyl 10 Mg Rect Supp MA QDAY PRN constipation unrelieved by MOM Calcium Acetate 1,334 mg 10/23/21 08:00 10/23/21 20:08 Calcium Acetate 667 Mg Cap PO Not Given TID ALBIN Dextrose 50 ml 10/20/21 13:30 Dextrose 50% In Water (25gm) 50 Ml Syringe IV Q30MIN PRN Hypoglycemia Protocol Famotidine 10 mg 10/21/21 10:00 10/23/21 21:42 Famotidine 20 Mg/2 Ml Inj IV 10 mg BID ALBIN Administration Fentanyl 50 mcg 10/20/21 13:25 Fentanyl 100 Mcg/2 Ml Inj IV Q10MIN PRN ANALGESIA Heparin Sodium (Porcine) 5,000 unit 10/20/21 10:41 10/21/21 17:19 Heparin 10,000 Units/10 Ml Vial IV 5,000 unit Q6H PRN Administration Anti-Xa Assay < 0.1 units/ml Hydrophilic Ointment 1 applic 10/20/21 13:25 Lip Therapy Vaseline TP Q2HR PRN Dry Lips Heparin Sodium/Sodium Chloride 25,000 unit in 500 mls @ 30 mls/hr 10/20/21 20:00 10/23/21 08:20 Heparin/ 0.45% Nacl-25,000 Unit/500 Ml IV 750 units/hr TITR ALBIN 15 mls/hr Administration Protocol 1,500 UNITS/HR Midazolam HCl 100 mg/ Sodium 100 mls @ 2 mls/hr 10/20/21 14:00 10/23/21 07:42 Chloride IV 5 mg/hr TITR ALBIN 5 mls/hr Titration Protocol 2 MG/HR Fentanyl Citrate 2,000 mcg in 100 mls @ 7.938 mls/hr 10/20/21 14:00 10/23/21 22:33 Fentanyl Drip Premix IV 4 mcg/kg/hr TITR ALBIN 31.751 mls/hr Administration Protocol 1 MCG/KG/HR Propofol 1,000 mg in 100 mls @ 4.763 mls/hr 10/20/21 14:00 10/23/21 22:32 Diprivan 10 Mg/Ml IV 40 mcg/kg/min TITR ALBIN 38.102 mls/hr Administration Protocol 5 MCG/KG/MIN Sodium Chloride 1,000 mls @ 1 mls/hr 10/20/21 14:30 Nacl 0.9% 500 Ml IV DIRECT PRN ARTERIAL LINE FLUSH Sodium Chloride 100 mls @ 999 mls/hr 10/21/21 09:19 Nacl 0.9% IV MAYLIN PRN Hypotension Sodium Chloride 100 mls @ 999 mls/hr 10/22/21 11:48 Nacl 0.9% IV MAYLIN PRN Hypotension Dexmedetomidine HCl 400 mcg/ 104 mls @ 8.258 mls/hr 10/22/21 16:00 10/23/21 14:19 Sodium Chloride IV 0.2 mcg/kg/hr TITRATE ALBIN 8.258 mls/hr Administration Protocol 0.2 MCG/KG/HR NORepinephrine/NS 8 MG-250 ML 8 mg in 250 mls @ 3.75 mls/hr 10/22/21 18:00 10/23/21 08:20 Norepinephrine/Ns 8 Mg-250 Ml (Double Conc) IV 0 mcg/min TITRATE ALBIN 0 mls/hr Titration Protocol 2 MCG/MIN Insulin Glargine 30 units 10/23/21 22:00 Insulin Glargine 100 Units/Ml SUB-Q QHS [facility] Insulin Human Lispro 0 unit 10/20/21 12:00 10/23/21 17:27 Insulin Lispro 100 Unit/Ml SUB-Q 4 unit Q6HR ALBIN Administration Protocol Methylprednisolone Sodium Succinate 60 mg 10/22/21 14:00 10/23/21 21:41 Methylprednisolone Sod Succinate 125 Mg/2 Ml Inj IV 60 mg Q8HR ALBIN Administration Midazolam HCl 2 mg 10/20/21 13:25 10/23/21 04:20 Midazolam 2 Mg/2 Ml Inj IV 2 mg Q10MIN PRN Administration Sedation Multi-Ingred Cream/Lotion/Oil/Oint 1 applic 10/20/21 13:25 Mineral Oil/Petrolatum, White Ophth Oint 3.5 Gm OU Q4HR PRN Dry Eye(s) Ondansetron HCl 4 mg 10/19/21 04:21 Ondansetron 4 Mg/2 Ml Inj IV Q8H PRN Nausea And Vomiting Promethazine HCl 25 mg 10/19/21 04:38 10/20/21 05:06 Promethazine 25 Mg Tab PO 25 mg Q6H PRN Administration Nausea And Vomiting Senna 8.8 mg 10/20/21 22:00 10/23/21 21:41 Sennosides Oral Liqd 8.8 Mg/5 Ml Oral Liqd FEEDTUBE 8.8 mg BID ALBIN Administration Simple Syrup 15 ml 10/20/21 15:15 Simple Syrup 15 Ml FEEDTUBE PRN PRN Hypoglycemia Simple Syrup 30 ml 10/20/21 15:15 Simple Syrup 15 Ml FEEDTUBE PRN PRN Hypoglycemia Sodium Bicarbonate 325 mg 10/20/21 15:15 Sodium Bicarbonate 325 Mg Tab FEEDTUBE PRN PRN For Clogged Feeding Tube Sodium Chloride 10 ml 10/19/21 10:00 10/23/21 21:43 Sodium Chloride 0.9% 10 Ml Flush Syringe IV 10 ml BID ALBIN Administration Sodium Chloride 10 ml 10/19/21 04:26 Sodium Chloride 0.9% 10 Ml Flush Syringe IV PRN PRN flush prior to & after IV med Nutrition/Malnutrition Assess - Dietary Evaluation Nutrition/Malnutrition Findings: Nutrition Notes Start: 10/19/21 14:34 Freq: Status: Active Protocol: Document 10/21/21 10:33 REESE (Rec: 10/21/21 10:53 REESE [email or web address]) Nutrition Notes Initial or Follow up Reassessment Current Diagnosis Diabetes,Hypertension, Respiratory Failure Other Pertinent Diagnosis COVID-19 pneu, hepatic steatosis, asthma, gout, pulmonary embolism Current Diet TF - Glucerna 1.2 at 108ml/hr Labs/Tests Na 136 K 7 BUN 43 Cr 2.3 BG 210 Phos 10.4 Mg 3 Pertinent Medications Decadron, Heparin gtt, Propofol at 14.288ml/hr ( provides 377 kcal), Senokot Height 6 ft Weight 158.757 kg [place] Body Weight (kg) 80.90 BMI 47.5 Weight Status Morbidly Obese Subjective/Other Information Pt remains on vent support. RN unable to locate Glucerna TF formula, so started Nepro instead. Burn Absent Trauma Absent Minimum of two criteria No #1 Nutrition Diagnosis Inadequate energy intake, Inadequate oral intake Comments: CHANGED Etiology [facility] ventilation As Evidenced by Signs and Symptoms pt NPO Diagnosis Progress(for reassessment Continues documentation) Is patient on ventilator? Yes Is Patient Ambulatory and/or Out of Bed No REE-([facility]-confined to bed) [phone] Calculation Used for Recommendations 70-80% energy needs Additional Notes Pro needs 1.3g/kg adjBW: 156g/ day Fluid needs 1ml/kcal Nutrition Intervention Nutrition Support: Change TF formula to Nepro at 53ml/hr. Provide 230ml water flush q4h. Kcal 2,290 Protein (gm) 103 Carbohydrates (gm) 205 Fat (gm) 122 Fluid (mL) 925 Fiber (gm) 16 Goal #1 TF tolerance Goal #2 TF to meet nutrient needs as best possible Follow-Up By: 10/24/21 Additional Comments F/U: TF tolerance, renal function, vent status, propofol
[2021-10-23] MEDS: OSELTAMIVIR PHOSPHATE 30 MG CAP PO SCH (21:42)
[2021-10-23] MEDS: INSULIN GLARGINE 100 UNITS/ML SUB-Q SCH (23:32)
[2021-10-24] MEDS: fentaNYL DRIP Premix 2,000 MCG/100 ML BAG IV SCH ×7 (01:28→23:42)
[2021-10-24] MEDS: methylPREDNISolone Sod Succinate 125 MG/2 ML INJ IV SCH ×3 (05:44→21:29)
[2021-10-24] MEDS: INSULIN LISPRO 100 UNIT/ML SUB-Q SCH ×3 (05:45→23:42)
--- NOTE | 2021-10-24 06:06 | XRay Report ---
CHEST 1 VIEW 10/24/2021 5:13 AM INDICATION / CLINICAL INFORMATION: follow up respiratory failure. COMPARISON: One view of the chest from 10/23/2021. FINDINGS: SUPPORT DEVICES: Unchanged. HEART / MEDIASTINUM: Stable. LUNGS / PLEURA: Similar bilateral airspace opacities. No significant pleural effusion. No pneumothora x. ADDITIONAL FINDINGS: No significant additional findings. IMPRESSION: 1. No significant interval changes compared to 10/23/2021. Signer Name: Evangelist Sharp MD Signed: 10/24/2021 6:02 AM Workstation Name: [id number]
[2021-10-24 06:14] LABS: ABG Base Excess -4.7 mmol/L (-2.0-3.0); ABG Methemoglobin 0.5 % (0.0-1.5); ABG Oxygen Saturation 91.8 % (95.0-99.0); ABG PCO2 71.5 mm Hg; ABG PO2 71.5 mm Hg (80.0-90.0)
[2021-10-24 06:24] LABS: Hematocrit 36.4 % (35.5-45.6); Hemoglobin 11.7 gm/dl (11.8-15.2); Mean Corpuscular HGB Conc 32 % (32-34); Mean Corpuscular Volume 80 fl (84-94); Platelet Count 358 K/mm3 (140-440); Red Blood Count 4.53 M/mm3 (3.65-5.03); Red Cell Distribution Width 15.5 % (13.2-15.2)
[2021-10-24 06:38] LABS: ABG PH 7.161 pH Units (7.350-7.450)
[2021-10-24 06:52] LABS: Albumin 3.2 g/dL (3.9-5); Calcium 7.4 mg/dL (8.4-10.2)
[2021-10-24] MEDS: CALCIUM ACETATE 667 MG CAP PO SCH ×3 (07:54→20:30)
[2021-10-24] MEDS: METOCLOPRAMIDE 10 MG/2 ML INJ IV SCH ×3 (08:16→23:43)
[2021-10-24] MEDS: FAMOTIDINE 20 MG/2 ML INJ IV SCH ×2 (09:42→21:29)
[2021-10-24] MEDS: SENNOSIDES ORAL LIQD 8.8 MG/5 ML ORAL LIQD FEEDTUBE SCH ×2 (09:42→21:29)
[2021-10-24] MEDS ORDERED: INSULIN LISPRO 100 UNIT/ML SUB-Q SCH (10:00)
--- NOTE | 2021-10-24 10:01 | Progress Note ---
Assessment and Plan Assessment: Acute kidney injury secondary to ATN COVID 19 PNA Acute hypoxic/hypercapnic respiratory failure secondary to COVID 19 PNA vs PE Acute pulmonary embolus Respiratory acidosis w/ inadequate metabolic compensation Hyperkalemia Hyponatremia Plan: Hemodialysis today (currently in progress at time of visit) - continue MWF schedule Reassess need for HD tomorrow Vent management per pulmonary/critical care Anticoagulation per primary team Management of COVID 19 infection per ID Dose medications for renal function Avoid potential nephrotoxins Subjective Date of service: 10/24/21 Principal diagnosis: phan Interval history: 24h events reviewed; chart, vitals, labs reviewed. Objective - Exam Narrative Exam: To reduce transmission of disease, physical exam deferred in setting of COVID 19 pandemic - Vital Signs Vital signs: Vital Signs - 12hr 10/23/21 10/23/21 10/23/21 22:00 22:09 22:15 Temperature Pulse Rate 71 74 74 Pulse Rate [ From Monitor] Respiratory 17 26 H 18 Rate Blood Pressure 134/72 134/72 127/79 O2 Sat by Pulse 89 88 89 Oximetry O2 Sat by Pulse Oximetry [ Bilateral] 10/23/21 10/23/21 10/23/21 22:30 22:45 23:00 Temperature Pulse Rate 74 71 69 Pulse Rate [ From Monitor] Respiratory 18 19 19 Rate Blood Pressure 117/74 125/72 124/71 O2 Sat by Pulse 89 89 84 Oximetry O2 Sat by Pulse Oximetry [ Bilateral] 10/23/21 10/23/21 10/23/21 23:15 23:28 23:30 Temperature Pulse Rate 73 71 73 Pulse Rate [ From Monitor] Respiratory 23 20 Rate Blood Pressure 123/73 134/72 121/67 O2 Sat by Pulse 93 93 93 Oximetry O2 Sat by Pulse Oximetry [ Bilateral] 10/23/21 10/23/21 10/24/21 23:45 23:55 00:00 Temperature 97.6 F Pulse Rate 73 73 Pulse Rate [ 75 From Monitor] Respiratory 18 15 Rate Blood Pressure 119/66 123/68 O2 Sat by Pulse 94 95 Oximetry O2 Sat by Pulse Oximetry [ Bilateral] 10/24/21 10/24/21 10/24/21 00:15 00:30 00:45 Temperature Pulse Rate 73 74 74 Pulse Rate [ From Monitor] Respiratory 18 20 18 Rate Blood Pressure 122/72 113/72 118/72 O2 Sat by Pulse 96 95 95 Oximetry O2 Sat by Pulse Oximetry [ Bilateral] 10/24/21 10/24/21 10/24/21 01:00 01:15 01:30 Temperature Pulse Rate 73 74 73 Pulse Rate [ From Monitor] Respiratory 17 16 15 Rate Blood Pressure 123/69 126/68 122/67 O2 Sat by Pulse 95 94 97 Oximetry O2 Sat by Pulse Oximetry [ Bilateral] 10/24/21 10/24/21 10/24/21 01:45 02:01 02:15 Temperature Pulse Rate 70 73 75 Pulse Rate [ From Monitor] Respiratory 20 20 19 Rate Blood Pressure 118/69 119/71 123/68 O2 Sat by Pulse 95 94 94 Oximetry O2 Sat by Pulse Oximetry [ Bilateral] 10/24/21 10/24/21 10/24/21 02:30 02:45 03:00 Temperature Pulse Rate 73 72 73 Pulse Rate [ From Monitor] Respiratory 21 22 17 Rate Blood Pressure 128/71 120/74 127/69 O2 Sat by Pulse 95 95 95 Oximetry O2 Sat by Pulse Oximetry [ Bilateral] 10/24/21 10/24/21 10/24/21 03:15 03:30 03:35 Temperature 97.8 F Pulse Rate 73 72 Pulse Rate [ From Monitor] Respiratory 16 17 Rate Blood Pressure 123/72 122/67 O2 Sat by Pulse 98 98 Oximetry O2 Sat by Pulse Oximetry [ Bilateral] 10/24/21 10/24/21 10/24/21 03:45 03:49 04:00 Temperature Pulse Rate 72 72 73 Pulse Rate [ 73 From Monitor] Respiratory 17 15 Rate Blood Pressure 118/71 116/61 123/65 O2 Sat by Pulse 97 97 96 Oximetry O2 Sat by Pulse Oximetry [ Bilateral] 10/24/21 10/24/21 10/24/21 04:15 04:30 04:45 Temperature Pulse Rate 72 71 72 Pulse Rate [ From Monitor] Respiratory 18 15 18 Rate Blood Pressure 117/68 119/67 119/67 O2 Sat by Pulse 97 98 96 Oximetry O2 Sat by Pulse Oximetry [ Bilateral] 10/24/21 10/24/21 10/24/21 05:00 05:15 05:30 Temperature Pulse Rate 71 68 68 Pulse Rate [ From Monitor] Respiratory 17 15 18 Rate Blood Pressure 115/64 113/65 121/72 O2 Sat by Pulse 98 98 100 Oximetry O2 Sat by Pulse Oximetry [ Bilateral] 10/24/21 10/24/21 10/24/21 05:45 06:00 06:15 Temperature Pulse Rate 69 71 72 Pulse Rate [ From Monitor] Respiratory 18 20 16 Rate Blood Pressure 113/65 111/65 113/67 O2 Sat by Pulse 100 97 98 Oximetry O2 Sat by Pulse Oximetry [ Bilateral] 10/24/21 10/24/21 10/24/21 06:45 07:00 07:15 Temperature Pulse Rate 71 70 69 Pulse Rate [ From Monitor] Respiratory 17 16 17 Rate Blood Pressure 113/65 117/62 110/64 O2 Sat by Pulse 98 99 96 Oximetry O2 Sat by Pulse Oximetry [ Bilateral] 10/24/21 10/24/21 10/24/21 07:30 07:45 07:51 Temperature Pulse Rate 67 68 71 Pulse Rate [ 71 From Monitor] Respiratory 18 17 22 Rate Blood Pressure 126/77 129/80 O2 Sat by Pulse 100 100 100 Oximetry O2 Sat by Pulse Oximetry [ Bilateral] 10/24/21 10/24/21 10/24/21 08:00 08:15 08:30 Temperature Pulse Rate 72 70 69 Pulse Rate [ From Monitor] Respiratory 18 18 18 Rate Blood Pressure 126/77 124/74 123/71 O2 Sat by Pulse 100 100 100 Oximetry O2 Sat by Pulse Oximetry [ Bilateral] 10/24/21 10/24/21 10/24/21 08:45 09:00 09:11 Temperature 98.9 F 98.8 F Pulse Rate 69 68 Pulse Rate [ From Monitor] Respiratory 18 18 Rate Blood Pressure 123/72 122/71 O2 Sat by Pulse 100 100 Oximetry O2 Sat by Pulse 100 Oximetry [ Bilateral] 10/24/21 10/24/21 10/24/21 09:13 09:15 09:30 Temperature Pulse Rate 69 68 68 Pulse Rate [ From Monitor] Respiratory 18 Rate Blood Pressure 121/69 121/69 120/71 O2 Sat by Pulse 100 Oximetry O2 Sat by Pulse Oximetry [ Bilateral] 10/24/21 09:45 Temperature Pulse Rate 67 Pulse Rate [ From Monitor] Respiratory Rate Blood Pressure 116/67 O2 Sat by Pulse Oximetry O2 Sat by Pulse Oximetry [ Bilateral] - General Appearance General appearance: well-developed, well-nourished EENT: other (ETT in place) - Lab 10/24/21 05:30 10/24/21 05:30 Most recent lab results ABG pH 7.161 pH Units (7.350-7.450) L* 10/24/21 05:09 ABG pCO2 71.5 mm Hg 10/24/21 05:09 ABG pO2 71.5 mm Hg (80.0-90.0) L 10/24/21 05:09 ABG HCO3 25.0 mmol/L (20.0-26.0) 10/24/21 05:09 ABG O2 Saturation 91.8 % (95.0-99.0) L 10/24/21 05:09 Calcium 7.4 mg/dL (8.4-10.2) L 10/24/21 05:30 Phosphorus 11.10 mg/dL (2.5-4.5) H 10/24/21 05:30 Magnesium 2.80 mg/dL (1.7-2.3) H 10/24/21 05:30 Urine Creatinine 153.1 mg/dL (0.1-20.0) H 10/21/21 Unknown Urine Sodium 31 mmol/L 10/21/21 Unknown Urine Total Protein 173 mg/dL (5-11.8) H 10/21/21 Unknown Medications & Allergies - Medications Allergies/Adverse Reactions: Allergies No Known Allergies Allergy (Unverified 10/18/21 16:14) Home Medications: Home Medications Medication Instructions Recorded Confirmed Last Taken Type metFORMIN [Glucophage] 500 mg PO BID 10/20/21 10/20/21 Unknown History Active Medications: Generic Name Dose Route Start Last Admin Trade Name Freq PRN Reason Stop Dose Admin Acetaminophen 650 mg 10/20/21 13:30 Acetaminophen 325 Mg/10.15 Ml Oral Liqd Unit Dose FEEDTUBE Q6H PRN Pain MILD(1-3)/Fever >100.5/HUSSEIN Al Hydrox/Mg Hydrox/Simethicone 30 ml 10/20/21 13:30 Alum-Mag Hydroxide-Simethicone [phone]/5ml Oral Liqd 30 Ml PO Q4H PRN Indigestion Lipase/Protease/Amylase 1 each 10/20/21 15:15 Lipase 10,500/Protease 25,000/Amylase 43,750 (Units) Dr Johnson FEEDTUBE PRN PRN For Clogged Feeding Tube Bisacodyl 10 mg 10/20/21 13:30 Bisacodyl 10 Mg Rect Supp AR QDAY PRN constipation unrelieved by MOM Calcium Acetate 1,334 mg 10/23/21 08:00 10/24/21 07:54 Calcium Acetate 667 Mg Cap PO Not Given TID ALBIN Dextrose 50 ml 10/20/21 13:30 Dextrose 50% In Water (25gm) 50 Ml Syringe IV Q30MIN PRN Hypoglycemia Protocol Famotidine 10 mg 10/21/21 10:00 10/24/21 09:42 Famotidine 20 Mg/2 Ml Inj IV 10 mg BID ALBIN Administration Fentanyl 50 mcg 10/20/21 13:25 Fentanyl 100 Mcg/2 Ml Inj IV Q10MIN PRN ANALGESIA Heparin Sodium (Porcine) 5,000 unit 10/20/21 10:41 10/21/21 17:19 Heparin 10,000 Units/10 Ml Vial IV 5,000 unit Q6H PRN Administration Anti-Xa Assay < 0.1 units/ml Hydrophilic Ointment 1 applic 10/20/21 13:25 Lip Therapy Vaseline TP Q2HR PRN Dry Lips Heparin Sodium/Sodium Chloride 25,000 unit in 500 mls @ 30 mls/hr 10/20/21 20:00 10/24/21 06:52 Heparin/ 0.45% Nacl-25,000 Unit/500 Ml IV 1,050 units/hr TITR ALBIN 21 mls/hr Titration Protocol 1,500 UNITS/HR Midazolam HCl 100 mg/ Sodium 100 mls @ 2 mls/hr 10/20/21 14:00 10/23/21 23:54 Chloride IV 5 mg/hr TITR ALBIN 5 mls/hr Administration Protocol 2 MG/HR Fentanyl Citrate 2,000 mcg in 100 mls @ 7.938 mls/hr 10/20/21 14:00 10/24/21 08:15 Fentanyl Drip Premix IV 4 mcg/kg/hr TITR ALBIN 31.751 mls/hr Administration Protocol 1 MCG/KG/HR Propofol 1,000 mg in 100 mls @ 4.763 mls/hr 10/20/21 14:00 10/24/21 06:48 Diprivan 10 Mg/Ml IV 40 mcg/kg/min TITR ALBIN 38.102 mls/hr Administration Protocol 5 MCG/KG/MIN Sodium Chloride 1,000 mls @ 1 mls/hr 10/20/21 14:30 Nacl 0.9% 500 Ml IV DIRECT PRN ARTERIAL LINE FLUSH Sodium Chloride 100 mls @ 999 mls/hr 10/22/21 11:48 Nacl 0.9% IV MAYLIN PRN Hypotension Dexmedetomidine HCl 400 mcg/ 104 mls @ 8.258 mls/hr 10/22/21 16:00 10/24/21 02:35 Sodium Chloride IV 0.3 mcg/kg/hr TITRATE ALBIN 12.386 mls/hr Administration Protocol 0.2 MCG/KG/HR NORepinephrine/NS 8 MG-250 ML 8 mg in 250 mls @ 3.75 mls/hr 10/22/21 18:00 10/23/21 08:20 Norepinephrine/Ns 8 Mg-250 Ml (Double Conc) IV 0 mcg/min TITRATE ALBIN 0 mls/hr Titration Protocol 2 MCG/MIN Insulin Glargine 30 units 10/23/21 22:00 10/23/21 23:32 Insulin Glargine 100 Units/Ml SUB-Q 30 units QHS ALBIN Administration Insulin Human Lispro 0 unit 10/24/21 10:00 Insulin Lispro 100 Unit/Ml SUB-Q Q4HR ALBIN Protocol Methylprednisolone Sodium Succinate 60 mg 10/22/21 14:00 10/24/21 05:44 Methylprednisolone Sod Succinate 125 Mg/2 Ml Inj IV 60 mg Q8HR ALBIN Administration Metoclopramide HCl 5 mg 10/24/21 08:00 10/24/21 08:16 Metoclopramide 10 Mg/2 Ml Inj IV 5 mg Q6HR ALBIN Administration Midazolam HCl 2 mg 10/20/21 13:25 10/23/21 04:20 Midazolam 2 Mg/2 Ml Inj IV 2 mg Q10MIN PRN Administration Sedation Multi-Ingred Cream/Lotion/Oil/Oint 1 applic 10/20/21 13:25 Mineral Oil/Petrolatum, White Ophth Oint 3.5 Gm OU Q4HR PRN Dry Eye(s) Ondansetron HCl 4 mg 10/19/21 04:21 Ondansetron 4 Mg/2 Ml Inj IV Q8H PRN Nausea And Vomiting Promethazine HCl 25 mg 10/19/21 04:38 10/20/21 05:06 Promethazine 25 Mg Tab PO 25 mg Q6H PRN Administration Nausea And Vomiting Senna 8.8 mg 10/20/21 22:00 10/24/21 09:42 Sennosides Oral Liqd 8.8 Mg/5 Ml Oral Liqd FEEDTUBE 8.8 mg BID ALBIN Administration Simple Syrup 15 ml 10/20/21 15:15 Simple Syrup 15 Ml FEEDTUBE PRN PRN Hypoglycemia Simple Syrup 30 ml 10/20/21 15:15 Simple Syrup 15 Ml FEEDTUBE PRN PRN Hypoglycemia Sodium Bicarbonate 325 mg 10/20/21 15:15 Sodium Bicarbonate 325 Mg Tab FEEDTUBE PRN PRN For Clogged Feeding Tube Sodium Chloride 10 ml 10/19/21 10:00 10/24/21 09:43 Sodium Chloride 0.9% 10 Ml Flush Syringe IV 10 ml BID ALBIN Administration Sodium Chloride 10 ml 10/19/21 04:26 Sodium Chloride 0.9% 10 Ml Flush Syringe IV PRN PRN flush prior to & after IV med
--- NOTE | 2021-10-24 10:50 | Progress Note ---
Assessment and Plan 26 y/o morbidly obese male admitted with acute respiratory failure secondary to COVID pneumonia 10/24/21: HD today. Continue current vent settings, if remains the same the next 24 hours, will try to wean FiO2. Will restart tube fees at 10 and reassess residuals tomorrow. Continue remdesivir, continue steroids. 10/23/21: Follow up renal recs. Per chart took off about 2 liters. CXR is the same, K remains elevated and BUN is 65. Acidemia is likely a combo of elevated CO2 and renal disease. Increased tidal volume but only by 25ml, as peak pressures are in the 40's. High risk for pneumothorax. Not a candidate for ecmo given obesity, he is age appropriate. Continue steroids. Continue Remdesivir. Overall prognosis is very very poor. 10/22/21: Hold on weaning today. Will ask renal for HD again today, and hopeful some volume removal. Hopeful echo can be read today. Maybe out of window for EKOS if evidence of right heart strain. CXR is worse. Will change steroids to solumedrol 60q8, may need long acting insulin. Feed patient. Very very guarded to poor prognosis. Will ask renal if they will dialyze again t kash. 10/21/21: Follow up echo. Unfortunately, requested initially to look for right heart strain and possible need for EKOS therapy however now in acute renal failure and needing dialysis. CXR is stable but does look like ARDS. HD catheter placed and ready for dialysis. [employer] placing art line now. Continue IV steroids, Continue remdesivir. Now that patient is intubated, prognosis is extremely poor, especially with renal failure. Continue supportive care. May need bicarb later. 1. Continue HFNC with NRB. Will use precedex in an attempt to help with anxiety 2. Long discussion with patient and at bedside in regards to risk of intubation and prognosis associated with this. Both expressed understanding 3. IV steroids, will increase to BID 4. Remdesivir 5. Actemra 6. Guarded to poor prognosis. CCT 31 minutes. Subjective Date of service: 10/24/21 Principal diagnosis: phan Interval history: No acute events. Now is in sync with the vent. Sats are 100 on 100% and 18 of PEEP. TV at 525. RR at 18. Currently on HD now. Objective Vital Signs - 12hr 10/23/21 10/23/21 10/23/21 22:45 23:00 23:15 Temperature Pulse Rate 71 69 73 Pulse Rate [ From Monitor] Respiratory 19 19 23 Rate Blood Pressure 125/72 124/71 123/73 O2 Sat by Pulse 89 84 93 Oximetry O2 Sat by Pulse Oximetry [ Bilateral] 10/23/21 10/23/21 10/23/21 23:28 23:30 23:45 Temperature Pulse Rate 71 73 73 Pulse Rate [ From Monitor] Respiratory 20 18 Rate Blood Pressure 134/72 121/67 119/66 O2 Sat by Pulse 93 93 94 Oximetry O2 Sat by Pulse Oximetry [ Bilateral] 10/23/21 10/24/21 10/24/21 23:55 00:00 00:15 Temperature 97.6 F Pulse Rate 73 73 Pulse Rate [ 75 From Monitor] Respiratory 15 18 Rate Blood Pressure 123/68 122/72 O2 Sat by Pulse 95 96 Oximetry O2 Sat by Pulse Oximetry [ Bilateral] 10/24/21 10/24/21 10/24/21 00:30 00:45 01:00 Temperature Pulse Rate 74 74 73 Pulse Rate [ From Monitor] Respiratory 20 18 17 Rate Blood Pressure 113/72 118/72 123/69 O2 Sat by Pulse 95 95 95 Oximetry O2 Sat by Pulse Oximetry [ Bilateral] 10/24/21 10/24/21 10/24/21 01:15 01:30 01:45 Temperature Pulse Rate 74 73 70 Pulse Rate [ From Monitor] Respiratory 16 15 20 Rate Blood Pressure 126/68 122/67 118/69 O2 Sat by Pulse 94 97 95 Oximetry O2 Sat by Pulse Oximetry [ Bilateral] 10/24/21 10/24/21 10/24/21 02:01 02:15 02:30 Temperature Pulse Rate 73 75 73 Pulse Rate [ From Monitor] Respiratory 20 19 21 Rate Blood Pressure 119/71 123/68 128/71 O2 Sat by Pulse 94 94 95 Oximetry O2 Sat by Pulse Oximetry [ Bilateral] 10/24/21 10/24/21 10/24/21 02:45 03:00 03:15 Temperature Pulse Rate 72 73 73 Pulse Rate [ From Monitor] Respiratory 22 17 16 Rate Blood Pressure 120/74 127/69 123/72 O2 Sat by Pulse 95 95 98 Oximetry O2 Sat by Pulse Oximetry [ Bilateral] 10/24/21 10/24/21 10/24/21 03:30 03:35 03:45 Temperature 97.8 F Pulse Rate 72 72 Pulse Rate [ From Monitor] Respiratory 17 17 Rate Blood Pressure 122/67 118/71 O2 Sat by Pulse 98 97 Oximetry O2 Sat by Pulse Oximetry [ Bilateral] 10/24/21 10/24/21 10/24/21 03:49 04:00 04:15 Temperature Pulse Rate 72 73 72 Pulse Rate [ 73 From Monitor] Respiratory 15 18 Rate Blood Pressure 116/61 123/65 117/68 O2 Sat by Pulse 97 96 97 Oximetry O2 Sat by Pulse Oximetry [ Bilateral] 10/24/21 10/24/21 10/24/21 04:30 04:45 05:00 Temperature Pulse Rate 71 72 71 Pulse Rate [ From Monitor] Respiratory 15 18 17 Rate Blood Pressure 119/67 119/67 115/64 O2 Sat by Pulse 98 96 98 Oximetry O2 Sat by Pulse Oximetry [ Bilateral] 10/24/21 10/24/21 10/24/21 05:15 05:30 05:45 Temperature Pulse Rate 68 68 69 Pulse Rate [ From Monitor] Respiratory 15 18 18 Rate Blood Pressure 113/65 121/72 113/65 O2 Sat by Pulse 98 100 100 Oximetry O2 Sat by Pulse Oximetry [ Bilateral] 10/24/21 10/24/21 10/24/21 06:00 06:15 06:45 Temperature Pulse Rate 71 72 71 Pulse Rate [ From Monitor] Respiratory 20 16 17 Rate Blood Pressure 111/65 113/67 113/65 O2 Sat by Pulse 97 98 98 Oximetry O2 Sat by Pulse Oximetry [ Bilateral] 10/24/21 10/24/21 10/24/21 07:00 07:15 07:30 Temperature Pulse Rate 70 69 67 Pulse Rate [ From Monitor] Respiratory 16 17 18 Rate Blood Pressure 117/62 110/64 126/77 O2 Sat by Pulse 99 96 100 Oximetry O2 Sat by Pulse Oximetry [ Bilateral] 10/24/21 10/24/21 10/24/21 07:45 07:51 08:00 Temperature Pulse Rate 68 71 72 Pulse Rate [ 71 From Monitor] Respiratory 17 22 18 Rate Blood Pressure 129/80 126/77 O2 Sat by Pulse 100 100 100 Oximetry O2 Sat by Pulse Oximetry [ Bilateral] 10/24/21 10/24/21 10/24/21 08:15 08:30 08:45 Temperature Pulse Rate 70 69 69 Pulse Rate [ From Monitor] Respiratory 18 18 18 Rate Blood Pressure 124/74 123/71 123/72 O2 Sat by Pulse 100 100 100 Oximetry O2 Sat by Pulse Oximetry [ Bilateral] 10/24/21 10/24/21 10/24/21 09:00 09:11 09:13 Temperature 98.9 F 98.8 F Pulse Rate 68 69 Pulse Rate [ From Monitor] Respiratory 18 Rate Blood Pressure 122/71 121/69 O2 Sat by Pulse 100 Oximetry O2 Sat by Pulse 100 Oximetry [ Bilateral] 10/24/21 10/24/21 10/24/21 09:15 09:30 09:45 Temperature Pulse Rate 68 67 68 Pulse Rate [ From Monitor] Respiratory 18 18 18 Rate Blood Pressure 121/69 120/71 116/67 O2 Sat by Pulse 100 100 100 Oximetry O2 Sat by Pulse Oximetry [ Bilateral] 10/24/21 10/24/21 10/24/21 10:00 10:15 10:30 Temperature Pulse Rate 68 68 69 Pulse Rate [ From Monitor] Respiratory 18 18 18 Rate Blood Pressure 112/65 112/67 108/62 O2 Sat by Pulse 100 100 100 Oximetry O2 Sat by Pulse Oximetry [ Bilateral] Constitutional: appears uncomfortable, other (morbidly obese) Eyes: non-icteric ENT: oropharynx moist Neck: supple, other (large in circumference) Effort: very labored Ascultation: Bilateral: diminished breath sounds Percussion: Bilateral: not dull Tactile fremitus: Bilateral: normal Cardiovascular: regular rate and rhythm Gastrointestinal: normoactive bowel sounds, soft Extremities: no edema Neurologic: normal mental status Psychiatric: anxious CBC and BMP: 10/24/21 05:30 10/24/21 05:30 ABG, PT/INR, D-dimer: ABG ABG pH 7.161 pH Units (7.350-7.450) L* 10/24/21 05:09 POC ABG pCO2 69.9 mmHg (32.0-48.0) H 10/21/21 09:34 ABG pCO2 71.5 mm Hg 10/24/21 05:09 POC ABG pO2 65.6 mmHg (83-108) L 10/21/21 09:34 ABG pO2 71.5 mm Hg (80.0-90.0) L 10/24/21 05:09 POC ABG HCO3 24.5 10/21/21 09:34 ABG O2 Saturation 91.8 % (95.0-99.0) L 10/24/21 05:09 PT/INR, D-dimer PT 14.8 Sec. (12.2-14.9) 10/20/21 13:30 INR 1.05 (0.87-1.13) 10/20/21 13:30 D-Dimer 1019.09 ng/mlDDU (0-234) H 10/23/21 04:45 Abnormal lab findings: Abnormal Labs 10/18/21 10/18/21 10/19/21 16:39 16:39 08:24 Hgb MCV 79 L MCH 26 L MCHC RDW 15.4 H Lymph % (Auto) 7.7 L Lymph # (Auto) 0.6 L Seg Neutrophils % 86.4 H Seg Neutrophils # D-Dimer Heparin Anti-Xa Level ABG pH POC ABG pCO2 POC ABG pO2 ABG pO2 ABG HCO3 ABG O2 Saturation ABG Base Excess ABG Hemoglobin ABG Oxyhemoglobin ABG Sodium ABG Potassium ABG Glucose Oxyhemoglobin Carboxyhemoglobin Sodium 133 L Potassium Chloride 96.6 L Carbon Dioxide 19 L BUN Creatinine Glucose 183 H POC Glucose Hemoglobin A1c Calcium Phosphorus Magnesium Ferritin AST 72 H ALT 58 H Lactate Dehydrogenase Total Creatine Kinase 1484 H C-Reactive Protein Total Protein Albumin 3.6 L Triglycerides Arterial Blood Glucose Arterial Blood Ionized Calcium Urine Creatinine Urine Total Protein Coronavirus (PCR) Positive A 10/19/21 10/19/21 10/19/21 13:41 17:41 21:02 Hgb MCV MCH MCHC RDW Lymph % (Auto) Lymph # (Auto) Seg Neutrophils % Seg Neutrophils # D-Dimer Heparin Anti-Xa Level ABG pH POC ABG pCO2 POC ABG pO2 ABG pO2 ABG HCO3 ABG O2 Saturation ABG Base Excess ABG Hemoglobin ABG Oxyhemoglobin ABG Sodium ABG Potassium ABG Glucose Oxyhemoglobin Carboxyhemoglobin Sodium Potassium Chloride Carbon Dioxide BUN Creatinine Glucose POC Glucose 231 H 228 H 271 H Hemoglobin A1c Calcium Phosphorus Magnesium Ferritin AST ALT Lactate Dehydrogenase Total Creatine Kinase C-Reactive Protein Total Protein Albumin Triglycerides Arterial Blood Glucose Arterial Blood Ionized Calcium Urine Creatinine Urine Total Protein Coronavirus (PCR) 10/19/21 10/19/21 10/19/21 23:52 23:52 23:52 Hgb MCV 79 L MCH 25 L MCHC RDW 15.9 H Lymph % (Auto) 4.9 L Lymph # (Auto) 0.5 L Seg Neutrophils % 89.7 H Seg Neutrophils # 8.9 H D-Dimer Heparin Anti-Xa Level ABG pH POC ABG pCO2 POC ABG pO2 ABG pO2 ABG HCO3 ABG O2 Saturation ABG Base Excess ABG Hemoglobin ABG Oxyhemoglobin ABG Sodium ABG Potassium ABG Glucose Oxyhemoglobin Carboxyhemoglobin Sodium 133 L Potassium Chloride 95.0 L Carbon Dioxide 18 L BUN Creatinine Glucose 217 H POC Glucose Hemoglobin A1c 7.9 H Calcium Phosphorus Magnesium Ferritin AST 94 H ALT 76 H Lactate Dehydrogenase Total Creatine Kinase C-Reactive Protein Total Protein 8.4 H Albumin 3.6 L Triglycerides Arterial Blood Glucose Arterial Blood Ionized Calcium Urine Creatinine Urine Total Protein Coronavirus (PCR) 10/19/21 10/19/21 10/19/21 23:52 23:52 23:52 Hgb MCV MCH MCHC RDW Lymph % (Auto) Lymph # (Auto) Seg Neutrophils % Seg Neutrophils # D-Dimer Heparin Anti-Xa Level ABG pH POC ABG pCO2 POC ABG pO2 ABG pO2 ABG HCO3 ABG O2 Saturation ABG Base Excess ABG Hemoglobin ABG Oxyhemoglobin ABG Sodium ABG Potassium ABG Glucose Oxyhemoglobin Carboxyhemoglobin Sodium Potassium Chloride Carbon Dioxide BUN Creatinine Glucose POC Glucose Hemoglobin A1c Calcium Phosphorus Magnesium Ferritin 786.1 H AST ALT Lactate Dehydrogenase 625 H Total Creatine Kinase C-Reactive Protein 18.80 H Total Protein Albumin Triglycerides Arterial Blood Glucose Arterial Blood Ionized Calcium Urine Creatinine Urine Total Protein Coronavirus (PCR) 10/19/21 10/20/21 10/20/21 23:52 11:25 14:40 Hgb MCV MCH MCHC RDW Lymph % (Auto) Lymph # (Auto) Seg Neutrophils % Seg Neutrophils # D-Dimer Heparin Anti-Xa Level ABG pH 7.282 L POC ABG pCO2 53.7 H POC ABG pO2 57.3 L ABG pO2 ABG HCO3 ABG O2 Saturation ABG Base Excess ABG Hemoglobin ABG Oxyhemoglobin 83.6 L ABG Sodium 132.2 L ABG Potassium 5.5 H ABG Glucose 255 H Oxyhemoglobin Carboxyhemoglobin 0.3 L Sodium Potassium Chloride Carbon Dioxide BUN Creatinine Glucose POC Glucose 174 H Hemoglobin A1c Calcium Phosphorus Magnesium Ferritin AST ALT Lactate Dehydrogenase Total Creatine Kinase C-Reactive Protein 19.20 H Total Protein Albumin Triglycerides Arterial Blood Glucose 255 H Arterial Blood Ionized Calcium Urine Creatinine Urine Total Protein Coronavirus (PCR) 10/20/21 10/20/21 10/20/21 15:49 19:11 22:51 Hgb MCV MCH MCHC RDW Lymph % (Auto) Lymph # (Auto) Seg Neutrophils % Seg Neutrophils # D-Dimer Heparin Anti-Xa Level ABG pH POC ABG pCO2 POC ABG pO2 ABG pO2 ABG HCO3 ABG O2 Saturation ABG Base Excess ABG Hemoglobin ABG Oxyhemoglobin ABG Sodium ABG Potassium ABG Glucose Oxyhemoglobin Carboxyhemoglobin Sodium Potassium Chloride Carbon Dioxide BUN Creatinine Glucose POC Glucose 239 H 198 H 171 H Hemoglobin A1c Calcium Phosphorus Magnesium Ferritin AST ALT Lactate Dehydrogenase Total Creatine Kinase C-Reactive Protein Total Protein Albumin Triglycerides Arterial Blood Glucose Arterial Blood Ionized Calcium Urine Creatinine Urine Total Protein Coronavirus (PCR) 10/20/21 10/21/21 10/21/21 Unknown 02:16 02:16 Hgb MCV 83 L MCH 25 L MCHC 31 L RDW 16.4 H Lymph % (Auto) Lymph # (Auto) Seg Neutrophils % Seg Neutrophils # D-Dimer Heparin Anti-Xa Level ABG pH POC ABG pCO2 POC ABG pO2 ABG pO2 ABG HCO3 ABG O2 Saturation ABG Base Excess ABG Hemoglobin ABG Oxyhemoglobin ABG Sodium ABG Potassium ABG Glucose Oxyhemoglobin Carboxyhemoglobin Sodium 135 L Potassium Chloride 96.5 L Carbon Dioxide BUN Creatinine Glucose 191 H POC Glucose Hemoglobin A1c Calcium 8.3 L Phosphorus 10.40 H Magnesium 3.00 H Ferritin AST 107 H ALT 94 H Lactate Dehydrogenase 970 H Total Creatine Kinase C-Reactive Protein 21.10 H Total Protein Albumin 3.5 L Triglycerides Arterial Blood Glucose Arterial Blood Ionized Calcium Urine Creatinine Urine Total Protein Coronavirus (PCR) 10/21/21 10/21/21 10/21/21 02:16 02:16 03:30 Hgb MCV MCH MCHC RDW Lymph % (Auto) Lymph # (Auto) Seg Neutrophils % Seg Neutrophils # D-Dimer 579.49 H Heparin Anti-Xa Level 1.60 H ABG pH POC ABG pCO2 POC ABG pO2 ABG pO2 ABG HCO3 ABG O2 Saturation ABG Base Excess ABG Hemoglobin ABG Oxyhemoglobin ABG Sodium ABG Potassium ABG Glucose Oxyhemoglobin Carboxyhemoglobin Sodium 136 L Potassium 7.0 H* D Chloride Carbon Dioxide BUN 43 H Creatinine 2.3 H D Glucose 210 H POC Glucose Hemoglobin A1c Calcium 8.3 L Phosphorus Magnesium Ferritin 1550.0 H AST 206 H ALT 194 H Lactate Dehydrogenase Total Creatine Kinase C-Reactive Protein Total Protein Albumin 3.3 L Triglycerides Arterial Blood Glucose Arterial Blood Ionized Calcium Urine Creatinine Urine Total Protein Coronavirus (PCR) 10/21/21 10/21/21 10/21/21 04:40 04:51 09:15 Hgb MCV MCH MCHC RDW Lymph % (Auto) Lymph # (Auto) Seg Neutrophils % Seg Neutrophils # D-Dimer Heparin Anti-Xa Level ABG pH 7.184 L* POC ABG pCO2 POC ABG pO2 ABG pO2 60.2 L ABG HCO3 ABG O2 Saturation 86.6 L ABG Base Excess -4.3 L ABG Hemoglobin 12.1 L ABG Oxyhemoglobin ABG Sodium ABG Potassium ABG Glucose Oxyhemoglobin 85.2 L Carboxyhemoglobin Sodium Potassium Chloride Carbon Dioxide BUN Creatinine Glucose POC Glucose 204 H 177 H Hemoglobin A1c Calcium Phosphorus Magnesium Ferritin AST ALT Lactate Dehydrogenase Total Creatine Kinase C-Reactive Protein Total Protein Albumin Triglycerides Arterial Blood Glucose Arterial Blood Ionized Calcium Urine Creatinine Urine Total Protein Coronavirus (PCR) 10/21/21 10/21/21 10/21/21 09:34 10:53 11:27 Hgb MCV MCH MCHC RDW Lymph % (Auto) Lymph # (Auto) Seg Neutrophils % Seg Neutrophils # D-Dimer Heparin Anti-Xa Level ABG pH 7.162 L POC ABG pCO2 69.9 H POC ABG pO2 65.6 L ABG pO2 ABG HCO3 ABG O2 Saturation ABG Base Excess ABG Hemoglobin ABG Oxyhemoglobin 89.7 L ABG Sodium ABG Potassium 6.5 H ABG Glucose 190 H Oxyhemoglobin Carboxyhemoglobin 0.4 L Sodium Potassium Chloride Carbon Dioxide BUN Creatinine Glucose POC Glucose 183 H 184 H Hemoglobin A1c Calcium Phosphorus Magnesium Ferritin AST ALT Lactate Dehydrogenase Total Creatine Kinase C-Reactive Protein Total Protein Albumin Triglycerides Arterial Blood Glucose 190 H Arterial Blood Ionized Calcium 4.2 L Urine Creatinine Urine Total Protein Coronavirus (PCR) 10/21/21 10/21/21 10/21/21 12:00 12:39 16:20 Hgb MCV MCH MCHC RDW Lymph % (Auto) Lymph # (Auto) Seg Neutrophils % Seg Neutrophils # D-Dimer Heparin Anti-Xa Level ABG pH 7.183 L* POC ABG pCO2 POC ABG pO2 ABG pO2 ABG HCO3 26.2 H ABG O2 Saturation 94.6 L ABG Base Excess -3.6 L ABG Hemoglobin 13.1 L ABG Oxyhemoglobin ABG Sodium ABG Potassium ABG Glucose Oxyhemoglobin 93.0 L Carboxyhemoglobin Sodium Potassium 6.7 H* Chloride Carbon Dioxide BUN 54 H Creatinine 2.8 H Glucose 190 H POC Glucose 208 H Hemoglobin A1c Calcium 8.0 L Phosphorus Magnesium Ferritin AST ALT Lactate Dehydrogenase Total Creatine Kinase C-Reactive Protein Total Protein Albumin Triglycerides Arterial Blood Glucose Arterial Blood Ionized Calcium Urine Creatinine Urine Total Protein Coronavirus (PCR) 10/21/21 10/21/21 10/21/21 20:46 21:45 23:16 Hgb MCV MCH MCHC RDW Lymph % (Auto) Lymph # (Auto) Seg Neutrophils % Seg Neutrophils # D-Dimer Heparin Anti-Xa Level ABG pH 7.193 L* POC ABG pCO2 POC ABG pO2 ABG pO2 59.7 L ABG HCO3 27.0 H ABG O2 Saturation 88.0 L ABG Base Excess -2.2 L ABG Hemoglobin 11.1 L ABG Oxyhemoglobin ABG Sodium ABG Potassium ABG Glucose Oxyhemoglobin 86.5 L Carboxyhemoglobin Sodium Potassium Chloride Carbon Dioxide BUN Creatinine Glucose POC Glucose 192 H 204 H Hemoglobin A1c Calcium Phosphorus Magnesium Ferritin AST ALT Lactate Dehydrogenase Total Creatine Kinase C-Reactive Protein Total Protein Albumin Triglycerides Arterial Blood Glucose Arterial Blood Ionized Calcium Urine Creatinine Urine Total Protein Coronavirus (PCR) 10/21/21 10/21/21 10/21/21 Unknown Unknown Unknown Hgb MCV MCH MCHC RDW Lymph % (Auto) Lymph # (Auto) Seg Neutrophils % Seg Neutrophils # D-Dimer Heparin Anti-Xa Level 1.04 H 0.82 H ABG pH POC ABG pCO2 POC ABG pO2 ABG pO2 ABG HCO3 ABG O2 Saturation ABG Base Excess ABG Hemoglobin ABG Oxyhemoglobin ABG Sodium ABG Potassium ABG Glucose Oxyhemoglobin Carboxyhemoglobin Sodium Potassium Chloride Carbon Dioxide BUN Creatinine Glucose POC Glucose Hemoglobin A1c Calcium Phosphorus Magnesium Ferritin AST ALT Lactate Dehydrogenase Total Creatine Kinase C-Reactive Protein Total Protein Albumin Triglycerides Arterial Blood Glucose Arterial Blood Ionized Calcium Urine Creatinine 153.1 H Urine Total Protein 173 H Coronavirus (PCR) 10/22/21 10/22/21 10/22/21 02:50 02:50 02:50 Hgb 11.2 L MCV MCH MCHC RDW Lymph % (Auto) Lymph # (Auto) Seg Neutrophils % Seg Neutrophils # D-Dimer Heparin Anti-Xa Level ABG pH POC ABG pCO2 POC ABG pO2 ABG pO2 ABG HCO3 ABG O2 Saturation ABG Base Excess ABG Hemoglobin ABG Oxyhemoglobin ABG Sodium ABG Potassium ABG Glucose Oxyhemoglobin Carboxyhemoglobin Sodium Potassium 6.0 H Chloride 95.4 L Carbon Dioxide BUN 51 H Creatinine 3.2 H Glucose 227 H POC Glucose Hemoglobin A1c Calcium 7.7 L Phosphorus 9.30 H Magnesium 2.50 H Ferritin AST 239 H ALT 199 H Lactate Dehydrogenase Total Creatine Kinase C-Reactive Protein Total Protein Albumin 3.2 L Triglycerides 390 H Arterial Blood Glucose Arterial Blood Ionized Calcium Urine Creatinine Urine Total Protein Coronavirus (PCR) 10/22/21 10/22/21 10/22/21 04:42 11:34 18:30 Hgb MCV MCH MCHC RDW Lymph % (Auto) Lymph # (Auto) Seg Neutrophils % Seg Neutrophils # D-Dimer Heparin Anti-Xa Level ABG pH POC ABG pCO2 POC ABG pO2 ABG pO2 ABG HCO3 ABG O2 Saturation ABG Base Excess ABG Hemoglobin ABG Oxyhemoglobin ABG Sodium ABG Potassium ABG Glucose Oxyhemoglobin Carboxyhemoglobin Sodium Potassium Chloride Carbon Dioxide BUN Creatinine Glucose POC Glucose 227 H 256 H 201 H Hemoglobin A1c Calcium Phosphorus Magnesium Ferritin AST ALT Lactate Dehydrogenase Total Creatine Kinase C-Reactive Protein Total Protein Albumin Triglycerides Arterial Blood Glucose Arterial Blood Ionized Calcium Urine Creatinine Urine Total Protein Coronavirus (PCR) 10/22/21 10/23/21 10/23/21 23:29 04:45 04:45 Hgb MCV MCH MCHC RDW Lymph % (Auto) Lymph # (Auto) Seg Neutrophils % Seg Neutrophils # D-Dimer 1019.09 H Heparin Anti-Xa Level ABG pH POC ABG pCO2 POC ABG pO2 ABG pO2 ABG HCO3 ABG O2 Saturation ABG Base Excess ABG Hemoglobin ABG Oxyhemoglobin ABG Sodium ABG Potassium ABG Glucose Oxyhemoglobin Carboxyhemoglobin Sodium 129 L D Potassium 5.9 H Chloride 90.7 L Carbon Dioxide BUN 65 H Creatinine 4.4 H Glucose 329 H POC Glucose 269 H Hemoglobin A1c Calcium 8.2 L Phosphorus 9.60 H Magnesium 2.50 H Ferritin AST 181 H ALT 227 H Lactate Dehydrogenase 712 H Total Creatine Kinase C-Reactive Protein 6.40 H Total Protein Albumin 3.3 L Triglycerides Arterial Blood Glucose Arterial Blood Ionized Calcium Urine Creatinine Urine Total Protein Coronavirus (PCR) 10/23/21 10/23/21 10/23/21 04:45 05:38 08:59 Hgb 11.5 L MCV 81 L MCH 25 L MCHC 31 L RDW 15.3 H Lymph % (Auto) Lymph # (Auto) Seg Neutrophils % Seg Neutrophils # D-Dimer Heparin Anti-Xa Level ABG pH 7.167 L* POC ABG pCO2 POC ABG pO2 ABG pO2 66.1 L ABG HCO3 ABG O2 Saturation 89.9 L ABG Base Excess -4.5 L ABG Hemoglobin 13.3 L ABG Oxyhemoglobin ABG Sodium ABG Potassium ABG Glucose Oxyhemoglobin 88.4 L Carboxyhemoglobin Sodium Potassium Chloride Carbon Dioxide BUN Creatinine Glucose POC Glucose 313 H Hemoglobin A1c Calcium Phosphorus Magnesium Ferritin AST ALT Lactate Dehydrogenase Total Creatine Kinase C-Reactive Protein Total Protein Albumin Triglycerides Arterial Blood Glucose Arterial Blood Ionized Calcium Urine Creatinine Urine Total Protein Coronavirus (PCR) 10/23/21 10/23/21 10/24/21 12:05 22:54 05:09 Hgb MCV MCH MCHC RDW Lymph % (Auto) Lymph # (Auto) Seg Neutrophils % Seg Neutrophils # D-Dimer Heparin Anti-Xa Level ABG pH 7.161 L* POC ABG pCO2 POC ABG pO2 ABG pO2 71.5 L ABG HCO3 ABG O2 Saturation 91.8 L ABG Base Excess -4.7 L ABG Hemoglobin 11.6 L ABG Oxyhemoglobin ABG Sodium ABG Potassium ABG Glucose Oxyhemoglobin 90.4 L Carboxyhemoglobin Sodium Potassium Chloride Carbon Dioxide BUN Creatinine Glucose POC Glucose 333 H 326 H Hemoglobin A1c Calcium Phosphorus Magnesium Ferritin AST ALT Lactate Dehydrogenase Total Creatine Kinase C-Reactive Protein Total Protein Albumin Triglycerides Arterial Blood Glucose Arterial Blood Ionized Calcium Urine Creatinine Urine Total Protein Coronavirus (PCR) 10/24/21 10/24/21 10/24/21 05:30 05:30 05:30 Hgb 11.7 L MCV 80 L MCH 26 L MCHC RDW 15.5 H Lymph % (Auto) Lymph # (Auto) Seg Neutrophils % Seg Neutrophils # D-Dimer Heparin Anti-Xa Level ABG pH POC ABG pCO2 POC ABG pO2 ABG pO2 ABG HCO3 ABG O2 Saturation ABG Base Excess ABG Hemoglobin ABG Oxyhemoglobin ABG Sodium ABG Potassium ABG Glucose Oxyhemoglobin Carboxyhemoglobin Sodium 133 L Potassium 5.8 H Chloride 93.6 L Carbon Dioxide 19 L BUN 97 H Creatinine 5.7 H Glucose 307 H POC Glucose Hemoglobin A1c Calcium 7.4 L Phosphorus 11.10 H Magnesium 2.80 H Ferritin 1307.0 H AST 79 H ALT 171 H Lactate Dehydrogenase Total Creatine Kinase C-Reactive Protein Total Protein Albumin 3.2 L Triglycerides Arterial Blood Glucose Arterial Blood Ionized Calcium Urine Creatinine Urine Total Protein Coronavirus (PCR) 10/24/21 10/24/21 05:30 05:39 Hgb MCV MCH MCHC RDW Lymph % (Auto) Lymph # (Auto) Seg Neutrophils % Seg Neutrophils # D-Dimer Heparin Anti-Xa Level 0.13 L ABG pH POC ABG pCO2 POC ABG pO2 ABG pO2 ABG HCO3 ABG O2 Saturation ABG Base Excess ABG Hemoglobin ABG Oxyhemoglobin ABG Sodium ABG Potassium ABG Glucose Oxyhemoglobin Carboxyhemoglobin Sodium Potassium Chloride Carbon Dioxide BUN Creatinine Glucose POC Glucose 271 H Hemoglobin A1c Calcium Phosphorus Magnesium Ferritin AST ALT Lactate Dehydrogenase Total Creatine Kinase C-Reactive Protein Total Protein Albumin Triglycerides Arterial Blood Glucose Arterial Blood Ionized Calcium Urine Creatinine Urine Total Protein Coronavirus (PCR)
--- NOTE | 2021-10-24 13:01 | Progress Note ---
<JOAN SERRANO - Last Filed: 10/24/21 18:12> Assessment and Plan Assessment and plan: This is a 26-year-old male with HTN, DM, asthma and gout admitted with COVID-19 pneumonia and pulmonary embolism. Hospital Course to Date: 10/19: Patient is currently anxious and restless with moderate respiratory distress. He is hypoxic and needing nasal cannula to and NRB alternately. BP and pulse stable. Patient has dry cough. Afebrile. No acute GI symptoms currently. 10/20: Patient was a code met from the floor to ICU. Patient was initially placed on BiPAP however due to his anxiety he was unable to tolerate and ultimately was intubated. Patient is currently sedated on fentanyl and Versed. Central line and Scott catheter placed today. Bilateral respirations in place. and mother updated at bedside today. 10/21: BUN/Cr increase noted and nephro consulted. Nephro will like to start HD. Femoral vascath placement delayed d/t elevated aPTT and renal US. [facility] made changes to vent. Hyperkalemia medically treated. and mother updated at bedside by [employer]. Vascath and christi placed. HD RN aware 10/22: HD planned for today, steroids changed to Solu-Medrol 60 every 8 and long-acting insulin. Patient is stacking breaths and SPO2 in the upper 80s. We will add Precedex for increased sedation. Increasing FiO2 due to desaturation overnight. 10/23: Nephrology will medically treat potassium and HD tomorrow, increase in vent settings overnight due to hypoxia. Remains sedated on Precedex, fentanyl, Versed and propofol. Increase in Lantus today, tube feedings held due to high residuals, increase in total volume. and mother updated at bedside today. HD removed 3 L of fluid yesterday per HD nurse documentation. 10/24: Patient remains intubated and sedated, RASS -4. Remains hyperkalemic this am, HD at the bedside, K to be corrected, will repeat BMP in 4 to 6hrs. TF re julieta on hold due to high residual, no vomiting. IV reglan initiated, will do trickle feeds for now and reassess in the am. Assessment and Plan #Neuro:Sedated #H/o Anxiety - Intubated and sedated, RASS -4 - Currently sedated on propofol, fentanyl, Versed and Precedex gttd - Sedation for vent synchrony - Bilateral soft restraints in place for safety - Avoid delirium - Maintain sleep-wake cycle #Cardio: Cardiomegaly #h/o HTN -CTA chest showed mild cardiomegaly without evidence of right heart strain -Hold home antihypertensive regimen -Blood pressure monitoring per protocol -Christi placed 10/21 -Echo shows Normal echocardiogram, LV EF within normal range of 50 to 55%, mild diastolic dysfunction evidenced by impaired relaxation pattern, no pericardial effusion -Vasopressor support with Levophed if needed -Goal MAP greater than 65 #Respiratory: Acute hypoxic respiratory failure 2/2 COVID vs PE #COVID PNA #Pulmonary embolism #h/o asthma -S/p BiPAP and OptiFlow/nonrebreather -CCM consulted, appreciate recommendations -Intubated on 10/20 with 8.00 ETT at 24 cm at the right lip -VAP bundle -CXR and ABG noted -AM vent settings: Assist control tidal volume 500, rate 18, PEEP 18, FiO2 100% -See RT notes for titration -[facility] increase tidal volume to 525 -Daily CXR and ABGs #GI:Transaminitis #Hepatic steatosis #Morbid obesity -CTA chest showed hepatic steatosis -Nutrition consult for tube feeding -On hold due to high residuals -Reglan started -Trickle feeds for now -BR: Senokot -PPI -24-hour +733 mL -Removed 3 L with HD yesterday -Acute hepatitis panel negative #:Acute renal injury most likely ATN #Severe hyperkalemia #Rhabdomyolysis -Cr/BUN 0.8/20 and increased to 2.3/43 -10/21 prompting renal consult and initiation of dialysis -nephrology consulted, appreciate recommendations -renal US in progress -10/21 FeNa at 0.4 indicating prerenal -HD to be initiated 10/21 -HD per nephrology -Plan for HD today -Strict intake and output with Scott catheter -Intervene with electrolytes as needed -S/p IV fluids for 24 hours -Trend BMP -Phosphate binder (dose increased) -Kayexalate per renal #ID: COVID-19 pneumonia and influenza -CTA chest showed bilateral lung infiltrates concerning for atypical pneumonia -Infectious disease consulted, appreciate recommendations -Droplet/isolation precautions -IV dexamethasone for 10 days () -Twice daily dosing for morbid obesity -Steroids changed to methylprednisone 60 every 8 per CCM -S/p Actemra 10/20/2021 -Tamiflu for 5 days () -Procal 0.49 -Antibiotic therapy: Azithromycin (), Rocephin (10/19 -10/23) -S/p IV remdesivir x1 on 10/20 -Trend COVID-19 inflammatory markers -Anticoagulation for pulmonary embolism #Endo: Hyperglycemia #h/o DM -Hemoglobin A1c 7.9 -Patient is on steroids -Continue SSI and Accu-Cheks every 6 -On Lantus Qhs -Avoid hypoglycemia #Heme: Pulmonary embolism -CTA chest showed pulmonary embolus without evidence of right heart strain -Systemic anticoagulation with heparin drip -Bilateral lower extremity SCDs while in bed -Trend CBC -Transfuse for hemoglobin less than 7 The high probability of a clinically significant, sudden or life threatening deterioration of the [multi] system(s) required my full and direct attention, i ntervention and personal management. The aggregate critical care time was [60] minutes. This time is in addition to time spent performing reported procedures but includes the following: [x] Data Review and interpretation [x] Patient assessment and monitoring of vital signs [x] Documentation [x] Medication orders and management Disposition Plan: ICU Total Time Spent with Patient (Minutes): 60 History Interval history: Patient seen and examined at the bedside. Intubated and sedated, on propofol, v ersede, fentanyl, and Precedex gtts, RASS -4. Patient remains on the heparin gtt. TF held overnight due to high residual, no vomiting. Hospitalist Physical - Constitutional Vitals: Temp Pulse Resp BP Pulse Ox 98.6 F 68 18 108/62 100 10/24/21 12:52 10/24/21 12:52 10/24/21 12:52 10/24/21 12:52 10/24/21 12:52 General appearance: Present: no acute distress, well-nourished, obese (Morbid obese with BMI 47), other (Intubated and sedated) - EENT Eyes: Present: PERRL - Respiratory Respiratory effort: normal Respiratory: bilateral: diminished - Cardiovascular Rhythm: regular Heart Sounds: Present: S1 & S2 - Extremities Extremities: no ischemia, pulses intact, pulses symmetrical Extremity abnormal: edema - Peripheral Assessment Generalized Edema Type: Non-pitting Edema Degree: 2+ Capillary Refill: < 3 seconds Skin Temperature: Warm Peripheral Pulses: within normal limits - Abdominal General gastrointestinal: soft, non-tender, hypoactive bowel sounds - Integumentary Integumentary: Present: warm, dry - Psychiatric Psychiatric: other (Intubated and sedated) - Neurologic Neurologic: other (Intubated and sedated) - Allied Health Allied health notes reviewed: nursing HEART Score - HEART Score EKG: Normal Age: < 45 Risk factors: 1-2 risk factors Troponin: Troponin T < 0.010 ng/mL (0.00-0.029) 10/18/21 16:39 Troponin: < normal limit - Critical Actions Critical Actions: 0-3 pts:0.9-1.7%risk of adverse cardiac event.Candidate for discharge Results - Labs CBC & Chem 7: 10/24/21 05:30 10/24/21 15:45 Labs: Laboratory Last Values WBC 5.1 K/mm3 (4.5-11.0) 10/24/21 05:30 RBC 4.53 M/mm3 (3.65-5.03) 10/24/21 05:30 Hgb 11.7 gm/dl (11.8-15.2) L 10/24/21 05:30 Hct 36.4 % (35.5-45.6) 10/24/21 05:30 MCV 80 fl (84-94) L 10/24/21 05:30 MCH 26 pg (28-32) L 10/24/21 05:30 MCHC 32 % (32-34) 10/24/21 05:30 RDW 15.5 % (13.2-15.2) H 10/24/21 05:30 Plt Count 358 K/mm3 (140-440) 10/24/21 05:30 Lymph % (Auto) 4.9 % (13.4-35.0) L 10/19/21 23:52 [place] % (Auto) 5.3 % (0.0-7.3) 10/19/21 23:52 Eos % (Auto) 0.0 % (0.0-4.3) 10/19/21 23:52 Baso % (Auto) 0.1 % (0.0-1.8) 10/19/21 23:52 Lymph # (Auto) 0.5 K/mm3 (1.2-5.4) L 10/19/21 23:52 [place] # (Auto) 0.5 K/mm3 (0.0-0.8) 10/19/21 23:52 Eos # (Auto) 0.0 K/mm3 (0.0-0.4) 10/19/21 23:52 Baso # (Auto) 0.0 K/mm3 (0.0-0.1) 10/19/21 23:52 Seg Neutrophils % 89.7 % (40.0-70.0) H 10/19/21 23:52 Seg Neutrophils # 8.9 K/mm3 (1.8-7.7) H 10/19/21 23:52 PT 14.8 Sec. (12.2-14.9) 10/20/21 13:30 INR 1.05 (0.87-1.13) 10/20/21 13:30 APTT 36.1 Sec. (24.2-36.6) 10/20/21 13:30 D-Dimer 1019.09 ng/mlDDU (0-234) H 10/23/21 04:45 Heparin Anti-Xa Level 0.13 U.I./ml (0.3-0.7) L 10/24/21 05:30 ABG pH 7.161 pH Units (7.350-7.450) L* 10/24/21 05:09 POC ABG pCO2 69.9 mmHg (32.0-48.0) H 10/21/21 09:34 ABG pCO2 71.5 mm Hg 10/24/21 05:09 POC ABG pO2 65.6 mmHg (83-108) L 10/21/21 09:34 ABG pO2 71.5 mm Hg (80.0-90.0) L 10/24/21 05:09 POC ABG HCO3 24.5 10/21/21 09:34 ABG HCO3 25.0 mmol/L (20.0-26.0) 10/24/21 05:09 ABG O2 Saturation 91.8 % (95.0-99.0) L 10/24/21 05:09 ABG O2 Content 14.8 (0.0-44) 10/24/21 05:09 POC ABG Base Excess -5.4 10/21/21 09:34 ABG Base Excess -4.7 mmol/L (-2.0-3.0) L 10/24/21 05:09 ABG Hemoglobin 11.6 gm/dl (14.0-18.0) L 10/24/21 05:09 ABG Oxyhemoglobin 89.7 (94-98) L 10/21/21 09:34 ABG Carboxyhemoglobin 1.1 % (0.0-5.0) 10/24/21 05:09 ABG Methemoglobin 0.5 % (0.0-1.5) 10/24/21 05:09 ABG Sodium 138.1 mmol/L (136.0-145.0) 10/21/21 09:34 ABG Potassium 6.5 mmol/L (3.40-4.50) H 10/21/21 09:34 ABG Chloride 102.0 mmol/L (98-107) 10/21/21 09:34 ABG Glucose 190 mg/dL (65-95) H 10/21/21 09:34 Oxyhemoglobin 90.4 % (95.0-99.0) L 10/24/21 05:09 Carboxyhemoglobin 0.4 (0.5-1.5) L 10/21/21 09:34 FiO2 100 % 10/24/21 05:09 FiO2 % 100.0 10/21/21 09:34 Sodium 133 mmol/L (137-145) L 10/24/21 05:30 Potassium 5.8 mmol/L (3.6-5.0) H 10/24/21 05:30 Chloride 93.6 mmol/L (98-107) L 10/24/21 05:30 Carbon Dioxide 19 mmol/L (22-30) L 10/24/21 05:30 Anion Gap 26 mmol/L 10/24/21 05:30 BUN 97 mg/dL (9-20) H 10/24/21 05:30 Creatinine 5.7 mg/dL (0.8-1.3) H 10/24/21 05:30 Estimated GFR 14 ml/min 10/24/21 05:30 BUN/Creatinine Ratio 17 % 10/24/21 05:30 Glucose 307 mg/dL (75-100) H 10/24/21 05:30 POC Glucose 196 mg/dL (70-105) H 10/24/21 11:39 Hemoglobin A1c 7.9 % (4-6) H 10/19/21 23:52 Lactic Acid 1.40 mmol/L (0.7-2.0) 10/18/21 16:39 Calcium 7.4 mg/dL (8.4-10.2) L 10/24/21 05:30 Phosphorus 11.10 mg/dL (2.5-4.5) H 10/24/21 05:30 Magnesium 2.80 mg/dL (1.7-2.3) H 10/24/21 05:30 Ferritin 1307.0 ng/mL (30.0-300.0) H 10/24/21 05:30 Total Bilirubin 0.20 mg/dL (0.1-1.2) 10/24/21 05:30 AST 79 units/L (5-40) H 10/24/21 05:30 ALT 171 units/L (7-56) H 10/24/21 05:30 Alkaline Phosphatase 73 units/L (35-129) 10/24/21 05:30 Lactate Dehydrogenase 712 units/L (91-180) H 10/23/21 04:45 Total Creatine Kinase 1484 units/L (55-170) H 10/18/21 16:39 CK-MB (CK-2) 3.3 ng/mL (0.0-4.0) 10/18/21 16:39 CK-MB (CK-2) Rel Index 0.2 (0-4) 10/18/21 16:39 Troponin T < 0.010 ng/mL (0.00-0.029) 10/18/21 16:39 C-Reactive Protein 6.40 mg/dL (0.00-1.30) H 10/23/21 04:45 Total Protein 6.9 g/dL (6.3-8.2) 10/24/21 05:30 Albumin 3.2 g/dL (3.9-5) L 10/24/21 05:30 Albumin/Globulin Ratio 0.9 % 10/24/21 05:30 Triglycerides 390 mg/dL (2-149) H 10/22/21 02:50 Lipase 15 units/L (13-60) 10/18/21 16:39 Procalcitonin 0.49 ng/mL (<0.15) 10/19/21 23:52 Arterial Blood Glucose 190 mg/dL (65-95) H 10/21/21 09:34 Arterial Blood Ionized Calcium 4.2 mg/dL (4.6-5.3) L 10/21/21 09:34 Urine Color Yellow (Yellow) 10/18/21 22:26 Urine Turbidity Clear (Clear) 10/18/21 22: Urine pH 6.0 (5.0-7.0) 10/18/21 22:26 Ur Specific [place] 1.025 (1.003-1.030) 10/18/21 22: Urine Protein 100 mg/dl mg/dL (Negative) 10/18/21 22: Urine Glucose (UA) Neg mg/dL (Negative) 10/18/21 22: Urine Ketones Neg mg/dL (Negative) 10/18/21 22:26 Urine Blood Sm (Negative) 10/18/21 22:26 Urine Nitrite Neg (Negative) 10/18/21 22:26 Urine Bilirubin Neg (Negative) 10/18/21 22: Urine Urobilinogen < 2.0 mg/dL (<2.0) 10/18/21 22:26 Ur Leukocyte Esterase Neg (Negative) 10/18/21 22: Urine WBC (Auto) < 1.0 /HPF (0.0-6.0) 10/18/21 22: Urine RBC (Auto) < 1.0 /HPF (0.0-6.0) 10/18/21 22: U Epithel Cells (Auto) < 1.0 /HPF (0-13.0) 10/18/21 22: Urine Bacteria (Auto) 1+ /HPF (Negative) 10/18/21 22:26 Urine Creatinine 153.1 mg/dL (0.1-20.0) H 10/21/21 Unknown Urine Sodium 31 mmol/L 10/21/21 Unknown Urine Total Protein 173 mg/dL (5-11.8) H 10/21/21 Unknown Coronavirus (PCR) Positive (Negative) A 10/19/21 08:24 Hepatitis A IgM Ab Non-reactive (NonReactive) 10/19/21 23:52 Hep Bs Antigen Nonreactive (Negative) 10/19/21 23:52 Hep B Core IgM Ab Non-reactive (NonReactive) 10/19/21 23:52 Hepatitis C Antibody Non-reactive (NonReactive) 10/19/21 23:52 Microbiology: Microbiology 10/18/21 16:39 Peripheral/Venous Blood Culture - Final NO GROWTH AFTER 5 DAYS 10/18/21 16:47 Peripheral/Venous Blood Culture - Final NO GROWTH AFTER 5 DAYS Scott/IV: Voiding Method Indwelling Catheter Active Medications - Current Medications Current Medications: Generic Name Dose Route Start Last Admin Trade Name Freq PRN Reason Stop Dose Admin Acetaminophen 650 mg 10/20/21 13:30 Acetaminophen 325 Mg/10.15 Ml Oral Liqd Unit Dose FEEDTUBE Q6H PRN Pain MILD(1-3)/Fever >100.5/HUSSEIN Al Hydrox/Mg Hydrox/Simethicone 30 ml 10/20/21 13:30 Alum-Mag Hydroxide-Simethicone [phone]/5ml Oral Liqd 30 Ml PO Q4H PRN Indigestion Lipase/Protease/Amylase 1 each 10/20/21 15:15 Lipase 10,500/Protease 25,000/Amylase 43,750 (Units) Dr Johnson FEEDTUBE PRN PRN For Clogged Feeding Tube Bisacodyl 10 mg 10/20/21 13:30 Bisacodyl 10 Mg Rect Supp [place] QDAY PRN constipation unrelieved by MOM Calcium Acetate 1,334 mg 10/23/21 08:00 10/24/21 07:54 Calcium Acetate 667 Mg Cap PO Not Given TID ALBIN Dextrose 50 ml 10/20/21 13:30 Dextrose 50% In Water (25gm) 50 Ml Syringe IV Q30MIN PRN Hypoglycemia Protocol Famotidine 10 mg 10/21/21 10:00 10/24/21 09:42 Famotidine 20 Mg/2 Ml Inj IV 10 mg BID ALBIN Administration Fentanyl 50 mcg 10/20/21 13:25 Fentanyl 100 Mcg/2 Ml Inj IV Q10MIN PRN ANALGESIA Heparin Sodium (Porcine) 5,000 unit 10/20/21 10:41 10/21/21 17:19 Heparin 10,000 Units/10 Ml Vial IV 5,000 unit Q6H PRN Administration Anti-Xa Assay < 0.1 units/ml Hydrophilic Ointment 1 applic 10/20/21 13:25 Lip Therapy Vaseline TP Q2HR PRN Dry Lips Heparin Sodium/Sodium Chloride 25,000 unit in 500 mls @ 30 mls/hr 10/20/21 20:00 10/24/21 06:52 Heparin/ 0.45% Nacl-25,000 Unit/500 Ml IV 1,050 units/hr TITR ALBIN 21 mls/hr Titration Protocol 1,500 UNITS/HR Midazolam HCl 100 mg/ Sodium 100 mls @ 2 mls/hr 10/20/21 14:00 10/23/21 23:54 Chloride IV 5 mg/hr TITR ALBIN 5 mls/hr Administration Protocol 2 MG/HR Fentanyl Citrate 2,000 mcg in 100 mls @ 7.938 mls/hr 10/20/21 14:00 10/24/21 08:15 Fentanyl Drip Premix IV 4 mcg/kg/hr TITR ALBIN 31.751 mls/hr Administration Protocol 1 MCG/KG/HR Propofol 1,000 mg in 100 mls @ 4.763 mls/hr 10/20/21 14:00 10/24/21 11:03 Diprivan 10 Mg/Ml IV 40 mcg/kg/min TITR ALBIN 38.102 mls/hr Administration Protocol 5 MCG/KG/MIN Sodium Chloride 1,000 mls @ 1 mls/hr 10/20/21 14:30 Nacl 0.9% 500 Ml IV DIRECT PRN ARTERIAL LINE FLUSH Sodium Chloride 100 mls @ 999 mls/hr 10/22/21 11:48 Nacl 0.9% IV MAYLIN PRN Hypotension Dexmedetomidine HCl 400 mcg/ 104 mls @ 8.258 mls/hr 10/22/21 16:00 10/24/21 02:35 Sodium Chloride IV 0.3 mcg/kg/hr TITRATE ALBIN 12.386 mls/hr Administration Protocol 0.2 MCG/KG/HR NORepinephrine/NS 8 MG-250 ML 8 mg in 250 mls @ 3.75 mls/hr 10/22/21 18:00 10/23/21 08:20 Norepinephrine/Ns 8 Mg-250 Ml (Double Conc) IV 0 mcg/min TITRATE ALBIN 0 mls/hr Titration Protocol 2 MCG/MIN Insulin Glargine 30 units 10/23/21 22:00 10/23/21 23:32 Insulin Glargine 100 Units/Ml SUB-Q 30 units QHS ALBIN Administration Insulin Human Lispro 0 unit 10/24/21 18:00 Insulin Lispro 100 Unit/Ml SUB-Q Q6HR [facility] Protocol Methylprednisolone Sodium Succinate 60 mg 10/22/21 14:00 10/24/21 05:44 Methylprednisolone Sod Succinate 125 Mg/2 Ml Inj IV 60 mg Q8HR ALBIN Administration Metoclopramide HCl 5 mg 10/24/21 08:00 10/24/21 08:16 Metoclopramide 10 Mg/2 Ml Inj IV 5 mg Q6HR ALBIN Administration Midazolam HCl 2 mg 10/20/21 13:25 10/23/21 04:20 Midazolam 2 Mg/2 Ml Inj IV 2 mg Q10MIN PRN Administration Sedation Multi-Ingred Cream/Lotion/Oil/Oint 1 applic 10/20/21 13:25 Mineral Oil/Petrolatum, White Ophth Oint 3.5 Gm OU Q4HR PRN Dry Eye(s) Ondansetron HCl 4 mg 10/19/21 04:21 Ondansetron 4 Mg/2 Ml Inj IV Q8H PRN Nausea And Vomiting Promethazine HCl 25 mg 10/19/21 04:38 10/20/21 05:06 Promethazine 25 Mg Tab PO 25 mg Q6H PRN Administration Nausea And Vomiting Senna 8.8 mg 10/20/21 22:00 10/24/21 09:42 Sennosides Oral Liqd 8.8 Mg/5 Ml Oral Liqd FEEDTUBE 8.8 mg BID ALBIN Administration Simple Syrup 15 ml 10/20/21 15:15 Simple Syrup 15 Ml FEEDTUBE PRN PRN Hypoglycemia Simple Syrup 30 ml 10/20/21 15:15 Simple Syrup 15 Ml FEEDTUBE PRN PRN Hypoglycemia Sodium Bicarbonate 325 mg 10/20/21 15:15 Sodium Bicarbonate 325 Mg Tab FEEDTUBE PRN PRN For Clogged Feeding Tube Sodium Chloride 10 ml 10/19/21 10:00 10/24/21 09:43 Sodium Chloride 0.9% 10 Ml Flush Syringe IV 10 ml BID ALBIN Administration Sodium Chloride 10 ml 10/19/21 04:26 Sodium Chloride 0.9% 10 Ml Flush Syringe IV PRN PRN flush prior to & after IV med Nutrition/Malnutrition Assess - Dietary Evaluation Nutrition/Malnutrition Findings: Nutrition Notes Start: 10/19/21 14: 34 Freq: Status: Active Protocol: Document 10/21/21 10:33 REESE (Rec: 10/21/21 10:53 [facility] [id number]) Nutrition Notes Initial or Follow up Reassessment Current Diagnosis Diabetes,Hypertension, Respiratory Failure Other Pertinent Diagnosis COVID-19 pneu, hepatic steatosis, asthma, gout, pulmonary embolism Current Diet TF - Glucerna 1.2 at 108ml/hr Labs/Tests Na 136 K 7 BUN 43 Cr 2.3 BG 210 Phos 10.4 Mg 3 Pertinent Medications Decadron, Heparin gtt, Propofol at 14.288ml/hr ( provides 377 kcal), Senokot Height 6 ft Weight 158.757 kg [place] Body Weight (kg) 80.90 BMI 47.5 Weight Status Morbidly Obese Subjective/Other Information Pt remains on vent support. RN unable to locate Glucerna TF formula, so started Nepro instead. Burn Absent Trauma Absent Minimum of two criteria No #1 Nutrition Diagnosis Inadequate energy intake, Inadequate oral intake Comments: CHANGED Etiology [facility] ventilation As Evidenced by Signs and Symptoms pt NPO Diagnosis Progress(for reassessment Continues documentation) Is patient on ventilator? Yes Is Patient Ambulatory and/or Out of Bed No REE-([place]-confined to bed) [phone] Calculation Used for Recommendations 70-80% energy needs Additional Notes Pro needs 1.3g/kg adjBW: 156g/ day Fluid needs 1ml/kcal Nutrition Intervention Nutrition Support: Change TF formula to Nepro at 53ml/hr. Provide 230ml water flush q4h. Kcal 2,290 Protein (gm) 103 Carbohydrates (gm) 205 Fat (gm) 122 Fluid (mL) 925 Fiber (gm) 16 Goal #1 TF tolerance Goal #2 TF to meet nutrient needs as best possible Follow-Up By: 10/24/21 Additional Comments F/U: TF tolerance, renal function, vent status, propofol <WALLY MEHTA R - Last Filed: 10/24/21 19:54> History Interval history: Attendings note: Patient seen and examined today by me. Patient remains sedated on ventilator on FiO2 100%, could not be weaned. Renal failure is getting worse with hyperkalemia and received hemodialysis today. Tube feeds held for residuals and Reglan started. Prognosis remains very guarded. Discussed with nurse practitioner. Hospitalist Physical - Constitutional Vitals: Temp Pulse Resp BP Pulse Ox 98.6 F 62 18 119/69 100 10/24/21 12:52 10/24/21 19:30 10/24/21 19:30 10/24/21 19:30 10/24/21 19:30 HEART Score - HEART Score Troponin: Troponin T < 0.010 ng/mL (0.00-0.029) 10/18/21 16:39 Results - Labs CBC & Chem 7: 10/24/21 05:30 10/24/21 15:45 Labs: Laboratory Last Values WBC 5.1 K/mm3 (4.5-11.0) 10/24/21 05:30 RBC 4.53 M/mm3 (3.65-5.03) 10/24/21 05:30 Hgb 11.7 gm/dl (11.8-15.2) L 10/24/21 05:30 Hct 36.4 % (35.5-45.6) 10/24/21 05:30 MCV 80 fl (84-94) L 10/24/21 05:30 MCH 26 pg (28-32) L 10/24/21 05:30 MCHC 32 % (32-34) 10/24/21 05:30 RDW 15.5 % (13.2-15.2) H 10/24/21 05:30 Plt Count 358 K/mm3 (140-440) 10/24/21 05:30 Lymph % (Auto) 4.9 % (13.4-35.0) L 10/19/21 23:52 [place] % (Auto) 5.3 % (0.0-7.3) 10/19/21 23:52 Eos % (Auto) 0.0 % (0.0-4.3) 10/19/21 23:52 Baso % (Auto) 0.1 % (0.0-1.8) 10/19/21 23:52 Lymph # (Auto) 0.5 K/mm3 (1.2-5.4) L 10/19/21 23:52 [place] # (Auto) 0.5 K/mm3 (0.0-0.8) 10/19/21 23:52 Eos # (Auto) 0.0 K/mm3 (0.0-0.4) 10/19/21 23:52 Baso # (Auto) 0.0 K/mm3 (0.0-0.1) 10/19/21 23:52 Seg Neutrophils % 89.7 % (40.0-70.0) H 10/19/21 23:52 Seg Neutrophils # 8.9 K/mm3 (1.8-7.7) H 10/19/21 23:52 PT 14.8 Sec. (12.2-14.9) 10/20/21 13:30 INR 1.05 (0.87-1.13) 10/20/21 13:30 APTT 36.1 Sec. (24.2-36.6) 10/20/21 13:30 D-Dimer 1019.09 ng/mlDDU (0-234) H 10/23/21 04:45 Heparin Anti-Xa Level 0.21 U.I./ml (0.3-0.7) L 10/24/21 13:29 ABG pH 7.161 pH Units (7.350-7.450) L* 10/24/21 05:09 POC ABG pCO2 69.9 mmHg (32.0-48.0) H 10/21/21 09:34 ABG pCO2 71.5 mm Hg 10/24/21 05:09 POC ABG pO2 65.6 mmHg (83-108) L 10/21/21 09:34 ABG pO2 71.5 mm Hg (80.0-90.0) L 10/24/21 05:09 POC ABG HCO3 24.5 10/21/21 09:34 ABG HCO3 25.0 mmol/L (20.0-26.0) 10/24/21 05:09 ABG O2 Saturation 91.8 % (95.0-99.0) L 10/24/21 05:09 ABG O2 Content 14.8 (0.0-44) 10/24/21 05:09 POC ABG Base Excess -5.4 10/21/21 09:34 ABG Base Excess -4.7 mmol/L (-2.0-3.0) L 10/24/21 05:09 ABG Hemoglobin 11.6 gm/dl (14.0-18.0) L 10/24/21 05:09 ABG Oxyhemoglobin 89.7 (94-98) L 10/21/21 09:34 ABG Carboxyhemoglobin 1.1 % (0.0-5.0) 10/24/21 05:09 ABG Methemoglobin 0.5 % (0.0-1.5) 10/24/21 05:09 ABG Sodium 138.1 mmol/L (136.0-145.0) 10/21/21 09:34 ABG Potassium 6.5 mmol/L (3.40-4.50) H 10/21/21 09:34 ABG Chloride 102.0 mmol/L (98-107) 10/21/21 09:34 ABG Glucose 190 mg/dL (65-95) H 10/21/21 09:34 Oxyhemoglobin 90.4 % (95.0-99.0) L 10/24/21 05:09 Carboxyhemoglobin 0.4 (0.5-1.5) L 10/21/21 09:34 FiO2 100 % 10/24/21 05:09 FiO2 % 100.0 10/21/21 09:34 Sodium 135 mmol/L (137-145) L 10/24/21 15:45 Potassium 5.1 mmol/L (3.6-5.0) H 10/24/21 15:45 Chloride 94.1 mmol/L (98-107) L 10/24/21 15:45 Carbon Dioxide 24 mmol/L (22-30) 10/24/21 15:45 Anion Gap 22 mmol/L 10/24/21 15:45 BUN 67 mg/dL (9-20) H 10/24/21 15:45 Creatinine 4.1 mg/dL (0.8-1.3) H 10/24/21 15:45 Estimated GFR 21 ml/min 10/24/21 15:45 BUN/Creatinine Ratio 16 % 10/24/21 15:45 Glucose 227 mg/dL (75-100) H 10/24/21 15:45 POC Glucose 202 mg/dL (70-105) H 10/24/21 17:14 Hemoglobin A1c 7.9 % (4-6) H 10/19/21 23:52 Lactic Acid 1.40 mmol/L (0.7-2.0) 10/18/21 16:39 Calcium 7.8 mg/dL (8.4-10.2) L 10/24/21 15:45 Phosphorus 11.10 mg/dL (2.5-4.5) H 10/24/21 05:30 Magnesium 2.80 mg/dL (1.7-2.3) H 10/24/21 05:30 Ferritin 1307.0 ng/mL (30.0-300.0) H 10/24/21 05:30 Total Bilirubin 0.20 mg/dL (0.1-1.2) 10/24/21 05:30 AST 79 units/L (5-40) H 10/24/21 05:30 ALT 171 units/L (7-56) H 10/24/21 05:30 Alkaline Phosphatase 73 units/L (35-129) 10/24/21 05:30 Lactate Dehydrogenase 712 units/L (91-180) H 10/23/21 04:45 Total Creatine Kinase 1484 units/L (55-170) H 10/18/21 16:39 CK-MB (CK-2) 3.3 ng/mL (0.0-4.0) 10/18/21 16:39 CK-MB (CK-2) Rel Index 0.2 (0-4) 10/18/21 16:39 Troponin T < 0.010 ng/mL (0.00-0.029) 10/18/21 16:39 C-Reactive Protein 6.40 mg/dL (0.00-1.30) H 10/23/21 04:45 Total Protein 6.9 g/dL (6.3-8.2) 10/24/21 05:30 Albumin 3.2 g/dL (3.9-5) L 10/24/21 05:30 Albumin/Globulin Ratio 0.9 % 10/24/21 05:30 Triglycerides 390 mg/dL (2-149) H 10/22/21 02:50 Lipase 15 units/L (13-60) 10/18/21 16:39 Procalcitonin 0.49 ng/mL (<0.15) 10/19/21 23:52 Arterial Blood Glucose 190 mg/dL (65-95) H 10/21/21 09:34 Arterial Blood Ionized Calcium 4.2 mg/dL (4.6-5.3) L 10/21/21 09:34 Urine Color Yellow (Yellow) 10/18/21 22:26 Urine Turbidity Clear (Clear) 10/18/21 22:26 Urine pH 6.0 (5.0-7.0) 10/18/21 22:26 Ur Specific [place] 1.025 (1.003-1.030) 10/18/21 22:26 Urine Protein 100 mg/dl mg/dL (Negative) 10/18/21 22:26 Urine Glucose (UA) Neg mg/dL (Negative) 10/18/21 22: Urine Ketones Neg mg/dL (Negative) 10/18/21 22:26 Urine Blood Sm (Negative) 10/18/21 22:26 Urine Nitrite Neg (Negative) 10/18/21 22: Urine Bilirubin Neg (Negative) 10/18/21 22: Urine Urobilinogen < 2.0 mg/dL (<2.0) 10/18/21 22:26 Ur Leukocyte Esterase Neg (Negative) 10/18/21 22:26 Urine WBC (Auto) < 1.0 /HPF (0.0-6.0) 10/18/21 22:26 Urine RBC (Auto) < 1.0 /HPF (0.0-6.0) 10/18/21 22: U Epithel Cells (Auto) < 1.0 /HPF (0-13.0) 10/18/21 22: Urine Bacteria (Auto) 1+ /HPF (Negative) 10/18/21 22:26 Urine Creatinine 153.1 mg/dL (0.1-20.0) H 10/21/21 Unknown Urine Sodium 31 mmol/L 10/21/21 Unknown Urine Total Protein 173 mg/dL (5-11.8) H 10/21/21 Unknown Coronavirus (PCR) Positive (Negative) A 10/19/21 08:24 Hepatitis A IgM Ab Non-reactive (NonReactive) 10/19/21 23:52 Hep Bs Antigen Nonreactive (Negative) 10/19/21 23:52 Hep B Core IgM Ab Non-reactive (NonReactive) 10/19/21 23:52 Hepatitis C Antibody Non-reactive (NonReactive) 10/19/21 23:52 Microbiology: Microbiology 10/20/21 14:50 Tracheal Aspirate Sputum Culture - Final 10/18/21 16:39 Peripheral/Venous Blood Culture - Final NO GROWTH AFTER 5 DAYS 10/18/21 16:47 Peripheral/Venous Blood Culture - Final NO GROWTH AFTER 5 DAYS Scott/IV: Voiding Method Indwelling Catheter Active Medications - Current Medications Current Medications: Generic Name Dose Route Start Last Admin Trade Name Freq PRN Reason Stop Dose Admin Acetaminophen 650 mg 10/20/21 13:30 Acetaminophen 325 Mg/10.15 Ml Oral Liqd Unit Dose FEEDTUBE Q6H PRN Pain MILD(1-3)/Fever >100.5/HUSSEIN Al Hydrox/Mg Hydrox/Simethicone 30 ml 10/20/21 13:30 Alum-Mag Hydroxide-Simethicone 162-298-64ic/5ml Oral Liqd 30 Ml PO Q4H PRN Indigestion Lipase/Protease/Amylase 1 each 10/20/21 15:15 Lipase 10,500/Protease 25,000/Amylase 43,750 (Units) Dr Cap FEEDTUBE PRN PRN For Clogged Feeding Tube Bisacodyl 10 mg 10/20/21 13:30 Bisacodyl 10 Mg Rect Supp [place] QDAY PRN constipation unrelieved by MOM Calcium Acetate 1,334 mg 10/23/21 08:00 10/24/21 13:18 Calcium Acetate 667 Mg Cap PO Not Given TID ALBIN Dextrose 50 ml 10/20/21 13:30 Dextrose 50% In Water (25gm) 50 Ml Syringe IV Q30MIN PRN Hypoglycemia Protocol Famotidine 10 mg 10/21/21 10:00 10/24/21 09:42 Famotidine 20 Mg/2 Ml Inj IV 10 mg BID ALBIN Administration Fentanyl 50 mcg 10/20/21 13:25 Fentanyl 100 Mcg/2 Ml Inj IV Q10MIN PRN ANALGESIA Heparin Sodium (Porcine) 5,000 unit 10/20/21 10:41 10/21/21 17:19 Heparin 10,000 Units/10 Ml Vial IV 5,000 unit Q6H PRN Administration Anti-Xa Assay < 0.1 units/ml Hydrophilic Ointment 1 applic 10/20/21 13:25 Lip Therapy Vaseline TP Q2HR PRN Dry Lips Heparin Sodium/Sodium Chloride 25,000 unit in 500 mls @ 30 mls/hr 10/20/21 20:00 10/24/21 14:19 Heparin/ 0.45% Nacl-25,000 Unit/500 Ml IV 1,200 units/hr TITR ALBIN 24 mls/hr Titration Protocol 1,500 UNITS/HR Midazolam HCl 100 mg/ Sodium 100 mls @ 2 mls/hr 10/20/21 14:00 10/24/21 18:57 Chloride IV 5 mg/hr TITR ALBIN 5 mls/hr Administration Protocol 2 MG/HR Fentanyl Citrate 2,000 mcg in 100 mls @ 7.938 mls/hr 10/20/21 14:00 10/24/21 14:44 Fentanyl Drip Premix IV 4 mcg/kg/hr TITR ALBIN 31.751 mls/hr Administration Protocol 1 MCG/KG/HR Propofol 1,000 mg in 100 mls @ 4.763 mls/hr 10/20/21 14:00 10/24/21 18:57 Diprivan 10 Mg/Ml IV 40 mcg/kg/min TITR ALBIN 38.102 mls/hr Administration Protocol 5 MCG/KG/MIN Sodium Chloride 1,000 mls @ 1 mls/hr 10/20/21 14:30 Nacl 0.9% 500 Ml IV DIRECT PRN ARTERIAL LINE FLUSH Sodium Chloride 100 mls @ 999 mls/hr 10/22/21 11:48 Nacl 0.9% IV MAYLIN PRN Hypotension Dexmedetomidine HCl 400 mcg/ 104 mls @ 8.258 mls/hr 10/22/21 16:00 10/24/21 14:44 Sodium Chloride IV 0.3 mcg/kg/hr TITRATE ALBIN 12.386 mls/hr Administration Protocol 0.2 MCG/KG/HR NORepinephrine/NS 8 MG-250 ML 8 mg in 250 mls @ 3.75 mls/hr 10/22/21 18:00 10/23/21 08:20 Norepinephrine/Ns 8 Mg-250 Ml (Double Conc) IV 0 mcg/min TITRATE ALBIN 0 mls/hr Titration Protocol 2 MCG/MIN Insulin Glargine 30 units 10/23/21 22:00 10/23/21 23:32 Insulin Glargine 100 Units/Ml SUB-Q 30 units QHS ABLIN Administration Insulin Human Lispro 0 unit 10/24/21 18:00 10/24/21 17:19 Insulin Lispro 100 Unit/Ml SUB-Q 4 unit Q6HR ALBIN Administration Protocol Methylprednisolone Sodium Succinate 60 mg 10/22/21 14:00 10/24/21 13:32 Methylprednisolone Sod Succinate 125 Mg/2 Ml Inj IV 60 mg Q8HR ALBIN Administration Metoclopramide HCl 5 mg 10/24/21 08:00 10/24/21 17:12 Metoclopramide 10 Mg/2 Ml Inj IV 5 mg Q6HR ALBIN Administration Midazolam HCl 2 mg 10/20/21 13:25 10/23/21 04:20 Midazolam 2 Mg/2 Ml Inj IV 2 mg Q10MIN PRN Administration Sedation Multi-Ingred Cream/Lotion/Oil/Oint 1 applic 10/20/21 13:25 Mineral Oil/Petrolatum, White Ophth Oint 3.5 Gm OU Q4HR PRN Dry Eye(s) Ondansetron HCl 4 mg 10/19/21 04:21 Ondansetron 4 Mg/2 Ml Inj IV Q8H PRN Nausea And Vomiting Promethazine HCl 25 mg 10/19/21 04:38 10/20/21 05:06 Promethazine 25 Mg Tab PO 25 mg Q6H PRN Administration Nausea And Vomiting Senna 8.8 mg 10/20/21 22:00 10/24/21 09:42 Sennosides Oral Liqd 8.8 Mg/5 Ml Oral Liqd FEEDTUBE 8.8 mg BID ALBIN Administration Simple Syrup 15 ml 10/20/21 15:15 Simple Syrup 15 Ml FEEDTUBE PRN PRN Hypoglycemia Simple Syrup 30 ml 10/20/21 15:15 Simple Syrup 15 Ml FEEDTUBE PRN PRN Hypoglycemia Sodium Bicarbonate 325 mg 10/20/21 15:15 Sodium Bicarbonate 325 Mg Tab FEEDTUBE PRN PRN For Clogged Feeding Tube Sodium Chloride 10 ml 10/19/21 10:00 10/24/21 09:43 Sodium Chloride 0.9% 10 Ml Flush Syringe IV 10 ml BID ALBIN Administration Sodium Chloride 10 ml 10/19/21 04:26 Sodium Chloride 0.9% 10 Ml Flush Syringe IV PRN PRN flush prior to & after IV med Nutrition/Malnutrition Assess - Dietary Evaluation Nutrition/Malnutrition Findings: Nutrition Notes Start: 10/19/21 14:34 Freq: Status: Active Protocol: Document 10/24/21 14:55 NHALL (Rec: 10/24/21 15:04 NHALL [id number]) Nutrition Notes Initial or Follow up Reassessment Current Diagnosis Diabetes,Hypertension, Respiratory Failure Other Pertinent Diagnosis COVID-19 pneu, hepatic steatosis, asthma, gout, pulmonary embolism Current Diet TF - Nepro at 53ml/hr Labs/Tests Na 133 BG 307 K 5.8 BUN 97 Cr 5.7 Phos 11.1 Mg 2.8 Pertinent Medications Phoslo, Solumedrol, Reglan ( ordered this am), Propofol at 38.102ml/hr (provides 1006 kcal) Height 6 ft Weight 158.8 kg [place] Body Weight (kg) 80.90 BMI 47.5 Weight Status Morbidly Obese Subjective/Other Information Pt with high gastric residuals (>500) since yesterday. TF had been on hold. Spoke with RN via phone at 14:53. ordered reglan and TF restart at 10ml/hr. Pt remains on vent support. (Propofol providing nearly 50% of energy needs) Burn Absent Trauma Absent Minimum of two criteria No #1 Nutrition Diagnosis Inadequate oral intake Diagnosis Progress(for reassessment Continues documentation) Is patient on ventilator? Yes Is Patient Ambulatory and/or Out of Bed No REE-([place]-confined to bed) [phone] Calculation Used for Recommendations 70-80% energy needs Additional Notes Energy needs: 4060-9162 kcal/ day Pro needs 1.3g/kg adjBW: 156g/ day Fluid needs 1ml/kcal Nutrition Intervention Nutrition Support: Continue Nepro at 10ml/hr; increase rate as tolerated to goal of 53ml/hr. Kcal 432 Protein (gm) 19 Goal #1 TF tolerance Goal #2 Increase TF to goal rate to meet nutrient needs as best possible Follow-Up By: 10/27/21 Additional Comments F/U: TF tolerance, TF rate, vent status, renal function, propofol
[2021-10-24] MEDS: HEPARIN/ 0.45% NACL DRIP 25,000 UNIT/500 ML BAG IV SCH (13:32)
--- NOTE | 2021-10-24 14:05 | Progress Note ---
Assessment and Plan Cultures: SARS CoV2 PCR: positive 10/18/2021 blood culture: no growth 10/20/2021 sputum culture: Usual respiratory james A/P: 26-year-old male with hypertension, diabetes, gout admitted with cough and shortness of breath going on for 3 days. He tested positive for COVID-19 and influenza as an outpatient: #Bilateral pneumonia: Suspected secondary to COVID-19 and influenza. Completed Tamiflu. Received a few days of Remdesivir, then discontinued due to worsening of renal function. On steroids, status post Actemra on 10/20/2021. #Acute hypoxic respiratory failure: failed NRB / HFNC, on vent. #Acute pulmonary embolism: On anticoagulation #Acute renal failure, creatinine up to 5.7. requiring HD. #Morbid obesity #Transaminitis: Likely related to viral illness #Elevated CPK Recs: -continue steroids per pulmonary, for at least 10 days. benefit beyond that is unclear, patient has received Actemra as well -s/p Actemra 10/20/2021 -on anticoagulation for PE -completed empiric abx course, tamiflu -poor prognosis Maggi Aponte MD, FACP, [facility] O: [phone] F: [phone] Subjective Date of service: 10/24/21 Principal diagnosis: phan Interval history: Afebrile. Remains on the vent with 100% FiO2, 18 of PEEP. Objective - Exam Narrative Exam: Physical Exam (reviewed in chart to minimize risk of transmission) Constitutional: deferred Head, Ears, Nose: deferred Eyes: deferred Neck: deferred Oral: deferred Cardiovascular: deferred Respiratory: deferred GI: deferred Musculoskeletal: deferred Skin: deferred Hem/Lymphatic: deferred Psych: deferred Neurological: deferred - Constitutional Vitals: Vital Signs Temp Pulse Resp BP Pulse Ox 98.6 F 65 18 111/66 100 10/24/21 12:52 10/24/21 13:30 10/24/21 13:30 10/24/21 13:30 10/24/21 13:30 Temperature -Last 24 Hours Temperature 98.6 F Temperature 97.7 F Temperature 98.8 F Temperature 98.9 F Temperature 97.8 F Temperature 97.6 F Temperature 98.3 F - Labs CBC & Chem 7: 10/24/21 05:30 10/24/21 05:30 Labs: Abnormal lab results 10/23/21 10/24/21 10/24/21 Range/Units 22:54 05:09 05:30 Hgb (11.8-15.2) gm/dl MCV (84-94) fl MCH (28-32) pg RDW (13.2-15.2) % Heparin Anti-Xa Level (0.3-0.7) U.I./ml ABG pH 7.161 L* (7.350-7.450) pH Units ABG pO2 71.5 L (80.0-90.0) mm Hg ABG O2 Saturation 91.8 L (95.0-99.0) % ABG Base Excess -4.7 L (-2.0-3.0) mmol/L ABG Hemoglobin 11.6 L (14.0-18.0) gm/dl Oxyhemoglobin 90.4 L (95.0-99.0) % Sodium (137-145) mmol/L Potassium (3.6-5.0) mmol/L Chloride (98-107) mmol/L Carbon Dioxide (22-30) mmol/L BUN (9-20) mg/dL Creatinine (0.8-1.3) mg/dL Glucose (75-100) mg/dL POC Glucose 326 H (70-105) mg/dL Calcium (8.4-10.2) mg/dL Phosphorus (2.5-4.5) mg/dL Magnesium (1.7-2.3) mg/dL Ferritin 1307.0 H (30.0-300.0) ng/mL AST (5-40) units/L ALT (7-56) units/L Albumin (3.9-5) g/dL 10/24/21 10/24/21 10/24/21 Range/Units 05:30 05:30 05:30 Hgb 11.7 L (11.8-15.2) gm/dl MCV 80 L (84-94) fl MCH 26 L (28-32) pg RDW 15.5 H (13.2-15.2) % Heparin Anti-Xa Level 0.13 L (0.3-0.7) U.I./ml ABG pH (7.350-7.450) pH Units ABG pO2 (80.0-90.0) mm Hg ABG O2 Saturation (95.0-99.0) % ABG Base Excess (-2.0-3.0) mmol/L ABG Hemoglobin (14.0-18.0) gm/dl Oxyhemoglobin (95.0-99.0) % Sodium 133 L (137-145) mmol/L Potassium 5.8 H (3.6-5.0) mmol/L Chloride 93.6 L (98-107) mmol/L Carbon Dioxide 19 L (22-30) mmol/L BUN 97 H (9-20) mg/dL Creatinine 5.7 H (0.8-1.3) mg/dL Glucose 307 H (75-100) mg/dL POC Glucose (70-105) mg/dL Calcium 7.4 L (8.4-10.2) mg/dL Phosphorus 11.10 H (2.5-4.5) mg/dL Magnesium 2.80 H (1.7-2.3) mg/dL Ferritin (30.0-300.0) ng/mL AST 79 H (5-40) units/L ALT 171 H (7-56) units/L Albumin 3.2 L (3.9-5) g/dL 10/24/21 10/24/21 Range/Units 05:39 11:39 Hgb (11.8-15.2) gm/dl MCV (84-94) fl MCH (28-32) pg RDW (13.2-15.2) % Heparin Anti-Xa Level (0.3-0.7) U.I./ml ABG pH (7.350-7.450) pH Units ABG pO2 (80.0-90.0) mm Hg ABG O2 Saturation (95.0-99.0) % ABG Base Excess (-2.0-3.0) mmol/L ABG Hemoglobin (14.0-18.0) gm/dl Oxyhemoglobin (95.0-99.0) % Sodium (137-145) mmol/L Potassium (3.6-5.0) mmol/L Chloride (98-107) mmol/L Carbon Dioxide (22-30) mmol/L BUN (9-20) mg/dL Creatinine (0.8-1.3) mg/dL Glucose (75-100) mg/dL POC Glucose 271 H 196 H (70-105) mg/dL Calcium (8.4-10.2) mg/dL Phosphorus (2.5-4.5) mg/dL Magnesium (1.7-2.3) mg/dL Ferritin (30.0-300.0) ng/mL AST (5-40) units/L ALT (7-56) units/L Albumin (3.9-5) g/dL
[2021-10-24 16:47] LABS: Calcium 7.8 mg/dL (8.4-10.2)
[2021-10-24] MEDS: MIDAZOLAM 100 MG in SODIUM CHLORIDE 0.9% 80 ML IV SCH (18:57)
[2021-10-24] MEDS: INSULIN GLARGINE 100 UNITS/ML SUB-Q SCH (22:40)
[2021-10-25] MEDS: fentaNYL DRIP Premix 2,000 MCG/100 ML BAG IV SCH ×7 (02:15→21:25)
[2021-10-25] MEDS: METOCLOPRAMIDE 10 MG/2 ML INJ IV SCH ×3 (05:11→17:45)
[2021-10-25] MEDS: methylPREDNISolone Sod Succinate 125 MG/2 ML INJ IV SCH ×3 (05:11→22:15)
[2021-10-25] MEDS: INSULIN LISPRO 100 UNIT/ML SUB-Q SCH ×3 (05:12→17:43)
[2021-10-25 06:24] LABS: Hematocrit 37.1 % (35.5-45.6); Hemoglobin 11.8 gm/dl (11.8-15.2); Mean Corpuscular HGB Conc 32 % (32-34); Mean Corpuscular Volume 79 fl (84-94); Platelet Count 379 K/mm3 (140-440); Red Blood Count 4.73 M/mm3 (3.65-5.03); Red Cell Distribution Width 15.4 % (13.2-15.2)
[2021-10-25 06:32] LABS: Calcium 7.6 mg/dL (8.4-10.2)
--- NOTE | 2021-10-25 07:10 | XRay Report ---
CHEST 1 VIEW 10/25/2021 5:22 AM INDICATION / CLINICAL INFORMATION: follow up respiratory failure. COMPARISON: One view of the chest from 10/24/2021 FINDINGS: This study is limited by portable technique and the patient's body habitus. SUPPORT DEVICES: No significant interval changes. HEART / MEDIASTINUM: Stable. LUNGS / PLEURA: Similar bilateral airspace opacities. No significant pleural effusion. No pneumothora x. ADDITIONAL FINDINGS: No significant additional findings. IMPRESSION: Limited exam without significant interval changes from 10/24/2021. Signer Name: Evangelist Sharp MD Signed: 10/25/2021 7:06 AM Workstation Name: [id number]
[2021-10-25] MEDS: CALCIUM ACETATE 667 MG CAP PO SCH ×3 (07:22→19:58)
[2021-10-25] MEDS ORDERED: ROCURONIUM 50 MG/5 ML INJ IV SCH (09:00)
--- NOTE | 2021-10-25 09:12 | Progress Note ---
Assessment and Plan Assessment: Acute kidney injury secondary to ATN COVID 19 PNA Acute hypoxic/hypercapnic respiratory failure secondary to COVID 19 PNA vs PE Acute pulmonary embolus Respiratory acidosis w/ inadequate metabolic compensation Hyperkalemia Hyponatremia Plan: Patient is s/p HD yesterday Will plan for HD tomorrow Vent management per pulmonary/critical care Anticoagulation per primary team Management of COVID 19 infection per ID Dose medications for renal function Avoid potential nephrotoxins Subjective Date of service: 10/25/21 Principal diagnosis: phan Objective - Vital Signs Vital signs: Vital Signs - 12hr 10/24/21 10/24/21 10/24/21 21:15 21:30 21:45 Temperature Pulse Rate 59 L 60 57 L Pulse Rate [ From Monitor] Respiratory 18 18 17 Rate Blood Pressure 114/65 117/67 123/73 O2 Sat by Pulse 100 100 100 Oximetry 10/24/21 10/24/21 10/24/21 22:00 22:15 22:30 Temperature 96.6 F L Pulse Rate 59 L 59 L 58 L Pulse Rate [ From Monitor] Respiratory 18 18 18 Rate Blood Pressure 115/67 115/65 115/65 O2 Sat by Pulse 100 100 100 Oximetry 10/24/21 10/24/21 10/24/21 22:45 22:58 23:00 Temperature Pulse Rate 59 L 69 58 L Pulse Rate [ From Monitor] Respiratory 18 18 Rate Blood Pressure 116/65 130/82 115/65 O2 Sat by Pulse 100 100 100 Oximetry 10/24/21 10/24/21 10/24/21 23:11 23:15 23:30 Temperature Pulse Rate 59 L 57 L 58 L Pulse Rate [ From Monitor] Respiratory 18 18 18 Rate Blood Pressure 115/65 114/67 113/64 O2 Sat by Pulse 100 100 100 Oximetry 10/24/21 10/25/21 10/25/21 23:45 00:00 00:15 Temperature Pulse Rate 57 L 57 L 57 L Pulse Rate [ 57 L From Monitor] Respiratory 18 18 18 Rate Blood Pressure 118/67 118/69 116/69 O2 Sat by Pulse 100 100 100 Oximetry 10/25/21 10/25/21 10/25/21 00:30 00:45 01:00 Temperature Pulse Rate 58 L 60 51 L Pulse Rate [ From Monitor] Respiratory 18 18 15 Rate Blood Pressure 128/78 133/80 128/76 O2 Sat by Pulse 100 100 100 Oximetry 10/25/21 10/25/21 10/25/21 01:15 01:30 01:45 Temperature Pulse Rate 61 60 59 L Pulse Rate [ From Monitor] Respiratory 17 20 22 Rate Blood Pressure 130/77 133/80 130/78 O2 Sat by Pulse 98 99 98 Oximetry 10/25/21 10/25/21 10/25/21 02:00 02:15 02:30 Temperature Pulse Rate 62 60 62 Pulse Rate [ From Monitor] Respiratory 19 25 H 25 H Rate Blood Pressure 136/80 132/80 129/79 O2 Sat by Pulse 98 97 98 Oximetry 10/25/21 10/25/21 10/25/21 02:45 03:00 03:15 Temperature Pulse Rate 63 63 64 Pulse Rate [ From Monitor] Respiratory 22 18 26 H Rate Blood Pressure 131/82 142/80 131/80 O2 Sat by Pulse 96 98 100 Oximetry 10/25/21 10/25/21 10/25/21 03:28 03:30 03:45 Temperature Pulse Rate 66 66 Pulse Rate [ 65 From Monitor] Respiratory 21 19 21 Rate Blood Pressure 129/78 135/79 O2 Sat by Pulse 100 100 100 Oximetry 10/25/21 10/25/21 10/25/21 04:00 04:15 04:30 Temperature 95.6 F L Pulse Rate 66 64 65 Pulse Rate [ From Monitor] Respiratory 24 22 26 H Rate Blood Pressure 128/83 128/79 124/80 O2 Sat by Pulse 100 100 100 Oximetry 10/25/21 10/25/21 10/25/21 04:45 05:00 05:15 Temperature Pulse Rate 67 66 67 Pulse Rate [ From Monitor] Respiratory 16 18 14 Rate Blood Pressure 130/82 128/74 128/79 O2 Sat by Pulse 100 100 100 Oximetry 10/25/21 10/25/21 10/25/21 05:30 05:45 06:00 Temperature Pulse Rate 68 66 68 Pulse Rate [ From Monitor] Respiratory 28 H 20 21 Rate Blood Pressure 120/75 130/74 120/72 O2 Sat by Pulse 100 98 100 Oximetry 10/25/21 10/25/21 10/25/21 06:15 06:30 06:45 Temperature Pulse Rate 66 68 68 Pulse Rate [ From Monitor] Respiratory 16 17 16 Rate Blood Pressure 119/74 129/76 129/77 O2 Sat by Pulse 99 99 99 Oximetry 10/25/21 10/25/21 10/25/21 07:00 07:15 07:30 Temperature Pulse Rate 68 67 67 Pulse Rate [ From Monitor] Respiratory 15 14 16 Rate Blood Pressure 123/78 122/82 120/79 O2 Sat by Pulse 98 99 98 Oximetry 10/25/21 10/25/21 10/25/21 07:33 07:34 07:45 Temperature Pulse Rate 66 66 Pulse Rate [ 67 From Monitor] Respiratory 32 H 19 Rate Blood Pressure 130/81 O2 Sat by Pulse 100 100 Oximetry - Lab 10/25/21 06:00 10/25/21 06:00 Most recent lab results ABG pH 7.161 pH Units (7.350-7.450) L* 10/24/21 05:09 ABG pCO2 71.5 mm Hg 10/24/21 05:09 ABG pO2 71.5 mm Hg (80.0-90.0) L 10/24/21 05:09 ABG HCO3 25.0 mmol/L (20.0-26.0) 10/24/21 05:09 ABG O2 Saturation 91.8 % (95.0-99.0) L 10/24/21 05:09 Calcium 7.6 mg/dL (8.4-10.2) L 10/25/21 06:00 Phosphorus 11.10 mg/dL (2.5-4.5) H 10/24/21 05:30 Magnesium 2.80 mg/dL (1.7-2.3) H 10/24/21 05:30 Urine Creatinine 153.1 mg/dL (0.1-20.0) H 10/21/21 Unknown Urine Sodium 31 mmol/L 10/21/21 Unknown Urine Total Protein 173 mg/dL (5-11.8) H 10/21/21 Unknown Medications & Allergies - Medications Allergies/Adverse Reactions: Allergies No Known Allergies Allergy (Unverified 10/18/21 16:14) Home Medications: Home Medications Medication Instructions Recorded Confirmed Last Taken Type metFORMIN [Glucophage] 500 mg PO BID 10/20/21 10/20/21 Unknown History Active Medications: Generic Name Dose Route Start Last Admin Trade Name Freq PRN Reason Stop Dose Admin Acetaminophen 650 mg 10/20/21 13:30 Acetaminophen 325 Mg/10.15 Ml Oral Liqd Unit Dose FEEDTUBE Q6H PRN Pain MILD(1-3)/Fever >100.5/HUSSEIN Al Hydrox/Mg Hydrox/Simethicone 30 ml 10/20/21 13:30 Alum-Mag Hydroxide-Simethicone [phone]/5ml Oral Liqd 30 Ml PO Q4H PRN Indigestion Lipase/Protease/Amylase 1 each 10/20/21 15:15 Lipase 10,500/Protease 25,000/Amylase 43,750 (Units) Dr [place] FEEDTUBE PRN PRN For Clogged Feeding Tube Bisacodyl 10 mg 10/20/21 13:30 Bisacodyl 10 Mg Rect Supp [place] QDAY PRN constipation unrelieved by MOM Calcium Acetate 1,334 mg 10/23/21 08:00 10/25/21 07:22 Calcium Acetate 667 Mg Cap PO 1,334 mg TID ALBIN Administration Dextrose 50 ml 10/20/21 13:30 Dextrose 50% In Water (25gm) 50 Ml Syringe IV Q30MIN PRN Hypoglycemia Protocol Famotidine 10 mg 10/21/21 10:00 10/24/21 21:29 Famotidine 20 Mg/2 Ml Inj IV 10 mg BID ALBIN Administration Fentanyl 50 mcg 10/20/21 13:25 Fentanyl 100 Mcg/2 Ml Inj IV Q10MIN PRN ANALGESIA Heparin Sodium (Porcine) 5,000 unit 10/20/21 10:41 10/21/21 17:19 Heparin 10,000 Units/10 Ml Vial IV 5,000 unit Q6H PRN Administration Anti-Xa Assay < 0.1 units/ml Hydrophilic Ointment 1 applic 10/20/21 13:25 Lip Therapy Vaseline TP Q2HR PRN Dry Lips Heparin Sodium/Sodium Chloride 25,000 unit in 500 mls @ 30 mls/hr 10/20/21 20:00 10/25/21 07:04 Heparin/ 0.45% Nacl-25,000 Unit/500 Ml IV 1,200 units/hr TITR ALBIN 24 mls/hr Titration Protocol 1,500 UNITS/HR Midazolam HCl 100 mg/ Sodium 100 mls @ 2 mls/hr 10/20/21 14:00 10/24/21 18:57 Chloride IV 5 mg/hr TITR ALBIN 5 mls/hr Administration Protocol 2 MG/HR Fentanyl Citrate 2,000 mcg in 100 mls @ 7.938 mls/hr 10/20/21 14:00 10/25/21 07:22 Fentanyl Drip Premix IV 4 mcg/kg/hr TITR ALBIN 31.751 mls/hr Administration Protocol 1 MCG/KG/HR Propofol 1,000 mg in 100 mls @ 4.763 mls/hr 10/20/21 14:00 10/25/21 07:21 Diprivan 10 Mg/Ml IV 40 mcg/kg/min TITR ALBIN 38.102 mls/hr Administration Protocol 5 MCG/KG/MIN Sodium Chloride 1,000 mls @ 1 mls/hr 10/20/21 14:30 Nacl 0.9% 500 Ml IV DIRECT PRN ARTERIAL LINE FLUSH Sodium Chloride 100 mls @ 999 mls/hr 10/22/21 11:48 Nacl 0.9% IV MAYLIN PRN Hypotension Dexmedetomidine HCl 400 mcg/ 104 mls @ 8.258 mls/hr 10/22/21 16:00 10/25/21 07:33 Sodium Chloride IV 0.3 mcg/kg/hr TITRATE ALBIN 12.386 mls/hr Titration Protocol 0.2 MCG/KG/HR NORepinephrine/NS 8 MG-250 ML 8 mg in 250 mls @ 3.75 mls/hr 10/22/21 18:00 10/23/21 08:20 Norepinephrine/Ns 8 Mg-250 Ml (Double Conc) IV 0 mcg/min TITRATE ALBIN 0 mls/hr Titration Protocol 2 MCG/MIN Insulin Glargine 30 units 10/23/21 22:00 10/24/21 22:40 Insulin Glargine 100 Units/Ml SUB-Q 30 units QHS ALBIN Administration Insulin Human Lispro 0 unit 10/24/21 18:00 10/25/21 05:12 Insulin Lispro 100 Unit/Ml SUB-Q 4 unit Q6HR ALBIN Administration Protocol Methylprednisolone Sodium Succinate 60 mg 10/22/21 14:00 10/25/21 05:11 Methylprednisolone Sod Succinate 125 Mg/2 Ml Inj IV 60 mg Q8HR ALBIN Administration Metoclopramide HCl 5 mg 10/24/21 08:00 10/25/21 05:11 Metoclopramide 10 Mg/2 Ml Inj IV 5 mg Q6HR ALBIN Administration Midazolam HCl 2 mg 10/20/21 13:25 10/23/21 04:20 Midazolam 2 Mg/2 Ml Inj IV 2 mg Q10MIN PRN Administration Sedation Multi-Ingred Cream/Lotion/Oil/Oint 1 applic 10/20/21 13:25 Mineral Oil/Petrolatum, White Ophth Oint 3.5 Gm OU Q4HR PRN Dry Eye(s) Ondansetron HCl 4 mg 10/19/21 04:21 Ondansetron 4 Mg/2 Ml Inj IV Q8H PRN Nausea And Vomiting Promethazine HCl 25 mg 10/19/21 04:38 10/20/21 05:06 Promethazine 25 Mg Tab PO 25 mg Q6H PRN Administration Nausea And Vomiting Rocuronium [place] 50 mg 10/25/21 09:00 10/25/21 09:08 Rocuronium 50 Mg/5 Ml Inj IV 10/25/21 11:00 50 mg ONCE@0900 ALBIN Administration Senna 8.8 mg 10/20/21 22:00 10/24/21 21:29 Sennosides Oral Liqd 8.8 Mg/5 Ml Oral Liqd FEEDTUBE 8.8 mg BID ALBIN Administration Simple Syrup 15 ml 10/20/21 15:15 Simple Syrup 15 Ml FEEDTUBE PRN PRN Hypoglycemia Simple Syrup 30 ml 10/20/21 15:15 Simple Syrup 15 Ml FEEDTUBE PRN PRN Hypoglycemia Sodium Bicarbonate 325 mg 10/20/21 15:15 Sodium Bicarbonate 325 Mg Tab FEEDTUBE PRN PRN For Clogged Feeding Tube Sodium Chloride 10 ml 10/19/21 10:00 10/24/21 21:30 Sodium Chloride 0.9% 10 Ml Flush Syringe IV 10 ml BID ALBIN Administration Sodium Chloride 10 ml 10/19/21 04:26 Sodium Chloride 0.9% 10 Ml Flush Syringe IV PRN PRN flush prior to & after IV med
[2021-10-25] MEDS: FAMOTIDINE 20 MG/2 ML INJ IV SCH ×2 (10:34→22:15)
[2021-10-25] MEDS: SENNOSIDES ORAL LIQD 8.8 MG/5 ML ORAL LIQD FEEDTUBE SCH ×2 (10:34→22:15)
--- NOTE | 2021-10-25 10:48 | Progress Note ---
Assessment and Plan 26 y/o morbidly obese male admitted with acute respiratory failure secondary to COVID pneumonia 10/25/21: Will attempt to use paralytics today to help with ventilator synchrony. Can increase versed and restart precedex if need be. Discussed with [employer]IOR [employer] and suggested antipsychotics as well which I agree with. Will obtain repeat CXR as well to eval for ptx. Very very guarded prognosis. 10/24/21: HD today. Continue current vent settings, if remains the same the next 24 hours, will try to wean FiO2. Will restart tube fees at 10 and reassess residuals tomorrow. Continue remdesivir, continue steroids. 10/23/21: Follow up renal recs. Per chart took off about 2 liters. CXR is the same, K remains elevated and BUN is 65. Acidemia is likely a combo of elevated CO2 and renal disease. Increased tidal volume but only by 25ml, as peak pressures are in the 40's. High risk for pneumothorax. Not a candidate for ecmo given obesity, he is age appropriate. Continue steroids. Continue Remdesivir. Overall prognosis is very very poor. 10/22/21: Hold on weaning today. Will ask renal for HD again today, and hopeful some volume removal. Hopeful echo can be read today. Maybe out of window for EKOS if evidence of right heart strain. CXR is worse. Will change steroids to solumedrol 60q8, may need long acting insulin. Feed patient. Very very guarded to poor prognosis. Will ask renal if they will dialyze again today. 10/21/21: Follow up echo. Unfortunately, requested initially to look for right heart strain and possible need for EKOS therapy however now in acute renal failure and needing dialysis. CXR is stable but does look like ARDS. HD catheter placed and ready for dialysis. 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 Continue IV steroids, Continue remdesivir. Now that patient is intubated, prognosis is extremely poor, especially with renal failure. Continue supportive care. May need bicarb later. 1. Continue HFNC with NRB. Will use precedex in an attempt to help with anxiety 2. Long discussion with patient and at bedside in regards to risk of intubation and prognosis associated with this. Both expressed understanding 3. IV steroids, will increase to BID 4. Remdesivir 5. Actemra 6. Guarded to poor prognosis. CCT 31 minutes. Subjective Date of service: 10/25/21 Principal diagnosis: phan Interval history: Worsening pulmonary state, continued desaturations but hemodynamically stable. Objective Vital Signs - 12hr 10/24/21 10/24/21 10/24/21 22:58 23:00 23:11 Temperature Pulse Rate 69 58 L 59 L Pulse Rate [ From Monitor] Respiratory 18 18 Rate Blood Pressure 130/82 115/65 115/65 O2 Sat by Pulse 100 100 100 Oximetry 10/24/21 10/24/21 10/24/21 23:15 23:30 23:45 Temperature Pulse Rate 57 L 58 L 57 L Pulse Rate [ From Monitor] Respiratory 18 18 18 Rate Blood Pressure 114/67 113/64 118/67 O2 Sat by Pulse 100 100 100 Oximetry 10/25/21 10/25/21 10/25/21 00:00 00:15 00:30 Temperature Pulse Rate 57 L 57 L 58 L Pulse Rate [ 57 L From Monitor] Respiratory 18 18 18 Rate Blood Pressure 118/69 116/69 128/78 O2 Sat by Pulse 100 100 100 Oximetry 10/25/21 10/25/21 10/25/21 00:45 01:00 01:15 Temperature Pulse Rate 60 51 L 61 Pulse Rate [ From Monitor] Respiratory 18 15 17 Rate Blood Pressure 133/80 128/76 130/77 O2 Sat by Pulse 100 100 98 Oximetry 10/25/21 10/25/21 10/25/21 01:30 01:45 02:00 Temperature Pulse Rate 60 59 L 62 Pulse Rate [ From Monitor] Respiratory 20 22 19 Rate Blood Pressure 133/80 130/78 136/80 O2 Sat by Pulse 99 98 98 Oximetry 10/25/21 10/25/21 10/25/21 02:15 02:30 02:45 Temperature Pulse Rate 60 62 63 Pulse Rate [ From Monitor] Respiratory 25 H 25 H 22 Rate Blood Pressure 132/80 129/79 131/82 O2 Sat by Pulse 97 98 96 Oximetry 10/25/21 10/25/21 10/25/21 03:00 03:15 03:28 Temperature Pulse Rate 63 64 Pulse Rate [ 65 From Monitor] Respiratory 18 26 H 21 Rate Blood Pressure 142/80 131/80 O2 Sat by Pulse 98 100 100 Oximetry 10/25/21 10/25/21 10/25/21 03:30 03:45 04:00 Temperature 95.6 F L Pulse Rate 66 66 66 Pulse Rate [ From Monitor] Respiratory 19 21 24 Rate Blood Pressure 129/78 135/79 128/83 O2 Sat by Pulse 100 100 100 Oximetry 10/25/21 10/25/21 10/25/21 04:15 04:30 04:45 Temperature Pulse Rate 64 65 67 Pulse Rate [ From Monitor] Respiratory 22 26 H 16 Rate Blood Pressure 128/79 124/80 130/82 O2 Sat by Pulse 100 100 100 Oximetry 10/25/21 10/25/21 10/25/21 05:00 05:15 05:30 Temperature Pulse Rate 66 67 68 Pulse Rate [ From Monitor] Respiratory 18 14 28 H Rate Blood Pressure 128/74 128/79 120/75 O2 Sat by Pulse 100 100 100 Oximetry 10/25/21 10/25/21 10/25/21 05:45 06:00 06:15 Temperature Pulse Rate 66 68 66 Pulse Rate [ From Monitor] Respiratory 20 21 16 Rate Blood Pressure 130/74 120/72 119/74 O2 Sat by Pulse 98 100 99 Oximetry 10/25/21 10/25/21 10/25/21 06:30 06:45 07:00 Temperature Pulse Rate 68 68 68 Pulse Rate [ From Monitor] Respiratory 17 16 15 Rate Blood Pressure 129/76 129/77 123/78 O2 Sat by Pulse 99 99 98 Oximetry 10/25/21 10/25/21 10/25/21 07:15 07:30 07:33 Temperature Pulse Rate 67 67 66 Pulse Rate [ From Monitor] Respiratory 14 16 Rate Blood Pressure 122/82 120/79 O2 Sat by Pulse 99 98 Oximetry 10/25/21 10/25/21 10/25/21 07:34 07:45 08:00 Temperature Pulse Rate 66 66 Pulse Rate [ 67 From Monitor] Respiratory 32 H 19 18 Rate Blood Pressure 130/81 128/83 O2 Sat by Pulse 100 100 98 Oximetry 10/25/21 10/25/21 10/25/21 08:15 08:30 08:45 Temperature Pulse Rate 66 65 54 L Pulse Rate [ From Monitor] Respiratory 22 16 31 H Rate Blood Pressure 133/80 124/81 158/100 O2 Sat by Pulse 99 97 97 Oximetry 10/25/21 10/25/21 10/25/21 09:00 09:15 09:30 Temperature Pulse Rate 71 78 80 Pulse Rate [ From Monitor] Respiratory 20 18 19 Rate Blood Pressure 134/88 144/82 136/79 O2 Sat by Pulse 99 100 100 Oximetry 10/25/21 10/25/21 10/25/21 09:45 09:58 10:00 Temperature 96 F L Pulse Rate 80 80 Pulse Rate [ From Monitor] Respiratory 24 29 H Rate Blood Pressure 140/77 144/75 O2 Sat by Pulse 100 99 Oximetry Constitutional: appears uncomfortable, other (morbidly obese) Eyes: non-icteric ENT: oropharynx moist Neck: supple, other (large in circumference) Effort: very labored Ascultation: Bilateral: diminished breath sounds Percussion: Bilateral: not dull Tactile fremitus: Bilateral: normal Cardiovascular: regular rate and rhythm Gastrointestinal: normoactive bowel sounds, soft Extremities: no edema Neurologic: normal mental status Psychiatric: anxious CBC and BMP: 10/26/21 04:02 10/26/21 04:02 ABG, PT/INR, D-dimer: ABG ABG pH 7.161 pH Units (7.350-7.450) L* 10/24/21 05:09 POC ABG pCO2 69.9 mmHg (32.0-48.0) H 10/21/21 09:34 ABG pCO2 71.5 mm Hg 10/24/21 05:09 POC ABG pO2 65.6 mmHg (83-108) L 10/21/21 09:34 ABG pO2 71.5 mm Hg (80.0-90.0) L 10/24/21 05:09 POC ABG HCO3 24.5 10/21/21 09:34 ABG O2 Saturation 91.8 % (95.0-99.0) L 10/24/21 05:09 PT/INR, D-dimer PT 14.8 Sec. (12.2-14.9) 10/20/21 13:30 INR 1.05 (0.87-1.13) 10/20/21 13:30 D-Dimer 1019.09 ng/mlDDU (0-234) H 10/23/21 04:45 Abnormal lab findings: Abnormal Labs 10/18/21 10/18/21 10/19/21 16:39 16:39 08:24 Hgb MCV 79 L MCH 26 L MCHC RDW 15.4 H Lymph % (Auto) 7.7 L Lymph # (Auto) 0.6 L Seg Neutrophils % 86.4 H Seg Neutrophils # D-Dimer Heparin Anti-Xa Level ABG pH POC ABG pCO2 POC ABG pO2 ABG pO2 ABG HCO3 ABG O2 Saturation ABG Base Excess ABG Hemoglobin ABG Oxyhemoglobin ABG Sodium ABG Potassium ABG Glucose Oxyhemoglobin Carboxyhemoglobin Sodium 133 L Potassium Chloride 96.6 L Carbon Dioxide 19 L BUN Creatinine Glucose 183 H POC Glucose Hemoglobin A1c Calcium Phosphorus Magnesium Ferritin AST 72 H ALT 58 H Lactate Dehydrogenase Total Creatine Kinase 1484 H C-Reactive Protein Total Protein Albumin 3.6 L Triglycerides Arterial Blood Glucose Arterial Blood Ionized Calcium Urine Creatinine Urine Total Protein Coronavirus (PCR) Positive A 10/19/21 10/19/21 10/19/21 13:41 17:41 21:02 Hgb MCV MCH MCHC RDW Lymph % (Auto) Lymph # (Auto) Seg Neutrophils % Seg Neutrophils # D-Dimer Heparin Anti-Xa Level ABG pH POC ABG pCO2 POC ABG pO2 ABG pO2 ABG HCO3 ABG O2 Saturation ABG Base Excess ABG Hemoglobin ABG Oxyhemoglobin ABG Sodium ABG Potassium ABG Glucose Oxyhemoglobin Carboxyhemoglobin Sodium Potassium Chloride Carbon Dioxide BUN Creatinine Glucose POC Glucose 231 H 228 H 271 H Hemoglobin A1c Calcium Phosphorus Magnesium Ferritin AST ALT Lactate Dehydrogenase Total Creatine Kinase C-Reactive Protein Total Protein Albumin Triglycerides Arterial Blood Glucose Arterial Blood Ionized Calcium Urine Creatinine Urine Total Protein Coronavirus (PCR) 10/19/21 10/19/21 10/19/21 23:52 23:52 23:52 Hgb MCV 79 L MCH 25 L MCHC RDW 15.9 H Lymph % (Auto) 4.9 L Lymph # (Auto) 0.5 L Seg Neutrophils % 89.7 H Seg Neutrophils # 8.9 H D-Dimer Heparin Anti-Xa Level ABG pH POC ABG pCO2 POC ABG pO2 ABG pO2 ABG HCO3 ABG O2 Saturation ABG Base Excess ABG Hemoglobin ABG Oxyhemoglobin ABG Sodium ABG Potassium ABG Glucose Oxyhemoglobin Carboxyhemoglobin Sodium 133 L Potassium Chloride 95.0 L Carbon Dioxide 18 L BUN Creatinine Glucose 217 H POC Glucose Hemoglobin A1c 7.9 H Calcium Phosphorus Magnesium Ferritin AST 94 H ALT 76 H Lactate Dehydrogenase Total Creatine Kinase C-Reactive Protein Total Protein 8.4 H Albumin 3.6 L Triglycerides Arterial Blood Glucose Arterial Blood Ionized Calcium Urine Creatinine Urine Total Protein Coronavirus (PCR) 10/19/21 10/19/21 10/19/21 23:52 23:52 23:52 Hgb MCV MCH MCHC RDW Lymph % (Auto) Lymph # (Auto) Seg Neutrophils % Seg Neutrophils # D-Dimer Heparin Anti-Xa Level ABG pH POC ABG pCO2 POC ABG pO2 ABG pO2 ABG HCO3 ABG O2 Saturation ABG Base Excess ABG Hemoglobin ABG Oxyhemoglobin ABG Sodium ABG Potassium ABG Glucose Oxyhemoglobin Carboxyhemoglobin Sodium Potassium Chloride Carbon Dioxide BUN Creatinine Glucose POC Glucose Hemoglobin A1c Calcium Phosphorus Magnesium Ferritin 786.1 H AST ALT Lactate Dehydrogenase 625 H Total Creatine Kinase C-Reactive Protein 18.80 H Total Protein Albumin Triglycerides Arterial Blood Glucose Arterial Blood Ionized Calcium Urine Creatinine Urine Total Protein Coronavirus (PCR) 10/19/21 10/20/21 10/20/21 23:52 11:25 14:40 Hgb MCV MCH MCHC RDW Lymph % (Auto) Lymph # (Auto) Seg Neutrophils % Seg Neutrophils # D-Dimer Heparin Anti-Xa Level ABG pH 7.282 L POC ABG pCO2 53.7 H POC ABG pO2 57.3 L ABG pO2 ABG HCO3 ABG O2 Saturation ABG Base Excess ABG Hemoglobin ABG Oxyhemoglobin 83.6 L ABG Sodium 132.2 L ABG Potassium 5.5 H ABG Glucose 255 H Oxyhemoglobin Carboxyhemoglobin 0.3 L Sodium Potassium Chloride Carbon Dioxide BUN Creatinine Glucose POC Glucose 174 H Hemoglobin A1c Calcium Phosphorus Magnesium Ferritin AST ALT Lactate Dehydrogenase Total Creatine Kinase C-Reactive Protein 19.20 H Total Protein Albumin Triglycerides Arterial Blood Glucose 255 H Arterial Blood Ionized Calcium Urine Creatinine Urine Total Protein Coronavirus (PCR) 10/20/21 10/20/21 10/20/21 15:49 19:11 22:51 Hgb MCV MCH MCHC RDW Lymph % (Auto) Lymph # (Auto) Seg Neutrophils % Seg Neutrophils # D-Dimer Heparin Anti-Xa Level ABG pH POC ABG pCO2 POC ABG pO2 ABG pO2 ABG HCO3 ABG O2 Saturation ABG Base Excess ABG Hemoglobin ABG Oxyhemoglobin ABG Sodium ABG Potassium ABG Glucose Oxyhemoglobin Carboxyhemoglobin Sodium Potassium Chloride Carbon Dioxide BUN Creatinine Glucose POC Glucose 239 H 198 H 171 H Hemoglobin A1c Calcium Phosphorus Magnesium Ferritin AST ALT Lactate Dehydrogenase Total Creatine Kinase C-Reactive Protein Total Protein Albumin Triglycerides Arterial Blood Glucose Arterial Blood Ionized Calcium Urine Creatinine Urine Total Protein Coronavirus (PCR) 10/20/21 10/21/21 10/21/21 Unknown 02:16 02:16 Hgb MCV 83 L MCH 25 L MCHC 31 L RDW 16.4 H Lymph % (Auto) Lymph # (Auto) Seg Neutrophils % Seg Neutrophils # D-Dimer Heparin Anti-Xa Level ABG pH POC ABG pCO2 POC ABG pO2 ABG pO2 ABG HCO3 ABG O2 Saturation ABG Base Excess ABG Hemoglobin ABG Oxyhemoglobin ABG Sodium ABG Potassium ABG Glucose Oxyhemoglobin Carboxyhemoglobin Sodium 135 L Potassium Chloride 96.5 L Carbon Dioxide BUN Creatinine Glucose 191 H POC Glucose Hemoglobin A1c Calcium 8.3 L Phosphorus 10.40 H Magnesium 3.00 H Ferritin AST 107 H ALT 94 H Lactate Dehydrogenase 970 H Total Creatine Kinase C-Reactive Protein 21.10 H Total Protein Albumin 3.5 L Triglycerides Arterial Blood Glucose Arterial Blood Ionized Calcium Urine Creatinine Urine Total Protein Coronavirus (PCR) 10/21/21 10/21/21 10/21/21 02:16 02:16 03:30 Hgb MCV MCH MCHC RDW Lymph % (Auto) Lymph # (Auto) Seg Neutrophils % Seg Neutrophils # D-Dimer 579.49 H Heparin Anti-Xa Level 1.60 H ABG pH POC ABG pCO2 POC ABG pO2 ABG pO2 ABG HCO3 ABG O2 Saturation ABG Base Excess ABG Hemoglobin ABG Oxyhemoglobin ABG Sodium ABG Potassium ABG Glucose Oxyhemoglobin Carboxyhemoglobin Sodium 136 L Potassium 7.0 H* D Chloride Carbon Dioxide BUN 43 H Creatinine 2.3 H D Glucose 210 H POC Glucose Hemoglobin A1c Calcium 8.3 L Phosphorus Magnesium Ferritin 1550.0 H AST 206 H ALT 194 H Lactate Dehydrogenase Total Creatine Kinase C-Reactive Protein Total Protein Albumin 3.3 L Triglycerides Arterial Blood Glucose Arterial Blood Ionized Calcium Urine Creatinine Urine Total Protein Coronavirus (PCR) 10/21/21 10/21/21 10/21/21 04:40 04:51 09:15 Hgb MCV MCH MCHC RDW Lymph % (Auto) Lymph # (Auto) Seg Neutrophils % Seg Neutrophils # D-Dimer Heparin Anti-Xa Level ABG pH 7.184 L* POC ABG pCO2 POC ABG pO2 ABG pO2 60.2 L ABG HCO3 ABG O2 Saturation 86.6 L ABG Base Excess -4.3 L ABG Hemoglobin 12.1 L ABG Oxyhemoglobin ABG Sodium ABG Potassium ABG Glucose Oxyhemoglobin 85.2 L Carboxyhemoglobin Sodium Potassium Chloride Carbon Dioxide BUN Creatinine Glucose POC Glucose 204 H 177 H Hemoglobin A1c Calcium Phosphorus Magnesium Ferritin AST ALT Lactate Dehydrogenase Total Creatine Kinase C-Reactive Protein Total Protein Albumin Triglycerides Arterial Blood Glucose Arterial Blood Ionized Calcium Urine Creatinine Urine Total Protein Coronavirus (PCR) 10/21/21 10/21/21 10/21/21 09:34 10:53 11:27 Hgb MCV MCH MCHC RDW Lymph % (Auto) Lymph # (Auto) Seg Neutrophils % Seg Neutrophils # D-Dimer Heparin Anti-Xa Level ABG pH 7.162 L POC ABG pCO2 69.9 H POC ABG pO2 65.6 L ABG pO2 ABG HCO3 ABG O2 Saturation ABG Base Excess ABG Hemoglobin ABG Oxyhemoglobin 89.7 L ABG Sodium ABG Potassium 6.5 H ABG Glucose 190 H Oxyhemoglobin Carboxyhemoglobin 0.4 L Sodium Potassium Chloride Carbon Dioxide BUN Creatinine Glucose POC Glucose 183 H 184 H Hemoglobin A1c Calcium Phosphorus Magnesium Ferritin AST ALT Lactate Dehydrogenase Total Creatine Kinase C-Reactive Protein Total Protein Albumin Triglycerides Arterial Blood Glucose 190 H Arterial Blood Ionized Calcium 4.2 L Urine Creatinine Urine Total Protein Coronavirus (PCR) 10/21/21 10/21/21 10/21/21 12:00 12:39 16:20 Hgb MCV MCH MCHC RDW Lymph % (Auto) Lymph # (Auto) Seg Neutrophils % Seg Neutrophils # D-Dimer Heparin Anti-Xa Level ABG pH 7.183 L* POC ABG pCO2 POC ABG pO2 ABG pO2 ABG HCO3 26.2 H ABG O2 Saturation 94.6 L ABG Base Excess -3.6 L ABG Hemoglobin 13.1 L ABG Oxyhemoglobin ABG Sodium ABG Potassium ABG Glucose Oxyhemoglobin 93.0 L Carboxyhemoglobin Sodium Potassium 6.7 H* Chloride Carbon Dioxide BUN 54 H Creatinine 2.8 H Glucose 190 H POC Glucose 208 H Hemoglobin A1c Calcium 8.0 L Phosphorus Magnesium Ferritin AST ALT Lactate Dehydrogenase Total Creatine Kinase C-Reactive Protein Total Protein Albumin Triglycerides Arterial Blood Glucose Arterial Blood Ionized Calcium Urine Creatinine Urine Total Protein Coronavirus (PCR) 10/21/21 10/21/21 10/21/21 20:46 21:45 23:16 Hgb MCV MCH MCHC RDW Lymph % (Auto) Lymph # (Auto) Seg Neutrophils % Seg Neutrophils # D-Dimer Heparin Anti-Xa Level ABG pH 7.193 L* POC ABG pCO2 POC ABG pO2 ABG pO2 59.7 L ABG HCO3 27.0 H ABG O2 Saturation 88.0 L ABG Base Excess -2.2 L ABG Hemoglobin 11.1 L ABG Oxyhemoglobin ABG Sodium ABG Potassium ABG Glucose Oxyhemoglobin 86.5 L Carboxyhemoglobin Sodium Potassium Chloride Carbon Dioxide BUN Creatinine Glucose POC Glucose 192 H 204 H Hemoglobin A1c Calcium Phosphorus Magnesium Ferritin AST ALT Lactate Dehydrogenase Total Creatine Kinase C-Reactive Protein Total Protein Albumin Triglycerides Arterial Blood Glucose Arterial Blood Ionized Calcium Urine Creatinine Urine Total Protein Coronavirus (PCR) 10/21/21 10/21/21 10/21/21 Unknown Unknown Unknown Hgb MCV MCH MCHC RDW Lymph % (Auto) Lymph # (Auto) Seg Neutrophils % Seg Neutrophils # D-Dimer Heparin Anti-Xa Level 1.04 H 0.82 H ABG pH POC ABG pCO2 POC ABG pO2 ABG pO2 ABG HCO3 ABG O2 Saturation ABG Base Excess ABG Hemoglobin ABG Oxyhemoglobin ABG Sodium ABG Potassium ABG Glucose Oxyhemoglobin Carboxyhemoglobin Sodium Potassium Chloride Carbon Dioxide BUN Creatinine Glucose POC Glucose Hemoglobin A1c Calcium Phosphorus Magnesium Ferritin AST ALT Lactate Dehydrogenase Total Creatine Kinase C-Reactive Protein Total Protein Albumin Triglycerides Arterial Blood Glucose Arterial Blood Ionized Calcium Urine Creatinine 153.1 H Urine Total Protein 173 H Coronavirus (PCR) 10/22/21 10/22/21 10/22/21 02:50 02:50 02:50 Hgb 11.2 L MCV MCH MCHC RDW Lymph % (Auto) Lymph # (Auto) Seg Neutrophils % Seg Neutrophils # D-Dimer Heparin Anti-Xa Level ABG pH POC ABG pCO2 POC ABG pO2 ABG pO2 ABG HCO3 ABG O2 Saturation ABG Base Excess ABG Hemoglobin ABG Oxyhemoglobin ABG Sodium ABG Potassium ABG Glucose Oxyhemoglobin Carboxyhemoglobin Sodium Potassium 6.0 H Chloride 95.4 L Carbon Dioxide BUN 51 H Creatinine 3.2 H Glucose 227 H POC Glucose Hemoglobin A1c Calcium 7.7 L Phosphorus 9.30 H Magnesium 2.50 H Ferritin AST 239 H ALT 199 H Lactate Dehydrogenase Total Creatine Kinase C-Reactive Protein Total Protein Albumin 3.2 L Triglycerides 390 H Arterial Blood Glucose Arterial Blood Ionized Calcium Urine Creatinine Urine Total Protein Coronavirus (PCR) 10/22/21 10/22/21 10/22/21 04:42 11:34 18:30 Hgb MCV MCH MCHC RDW Lymph % (Auto) Lymph # (Auto) Seg Neutrophils % Seg Neutrophils # D-Dimer Heparin Anti-Xa Level ABG pH POC ABG pCO2 POC ABG pO2 ABG pO2 ABG HCO3 ABG O2 Saturation ABG Base Excess ABG Hemoglobin ABG Oxyhemoglobin ABG Sodium ABG Potassium ABG Glucose Oxyhemoglobin Carboxyhemoglobin Sodium Potassium Chloride Carbon Dioxide BUN Creatinine Glucose POC Glucose 227 H 256 H 201 H Hemoglobin A1c Calcium Phosphorus Magnesium Ferritin AST ALT Lactate Dehydrogenase Total Creatine Kinase C-Reactive Protein Total Protein Albumin Triglycerides Arterial Blood Glucose Arterial Blood Ionized Calcium Urine Creatinine Urine Total Protein Coronavirus (PCR) 10/22/21 10/23/21 10/23/21 23:29 04:45 04:45 Hgb MCV MCH MCHC RDW Lymph % (Auto) Lymph # (Auto) Seg Neutrophils % Seg Neutrophils # D-Dimer 1019.09 H Heparin Anti-Xa Level ABG pH POC ABG pCO2 POC ABG pO2 ABG pO2 ABG HCO3 ABG O2 Saturation ABG Base Excess ABG Hemoglobin ABG Oxyhemoglobin ABG Sodium ABG Potassium ABG Glucose Oxyhemoglobin Carboxyhemoglobin Sodium 129 L D Potassium 5.9 H Chloride 90.7 L Carbon Dioxide BUN 65 H Creatinine 4.4 H Glucose 329 H POC Glucose 269 H Hemoglobin A1c Calcium 8.2 L Phosphorus 9.60 H Magnesium 2.50 H Ferritin AST 181 H ALT 227 H Lactate Dehydrogenase 712 H Total Creatine Kinase C-Reactive Protein 6.40 H Total Protein Albumin 3.3 L Triglycerides Arterial Blood Glucose Arterial Blood Ionized Calcium Urine Creatinine Urine Total Protein Coronavirus (PCR) 10/23/21 10/23/21 10/23/21 04:45 05:38 08:59 Hgb 11.5 L MCV 81 L MCH 25 L MCHC 31 L RDW 15.3 H Lymph % (Auto) Lymph # (Auto) Seg Neutrophils % Seg Neutrophils # D-Dimer Heparin Anti-Xa Level ABG pH 7.167 L* POC ABG pCO2 POC ABG pO2 ABG pO2 66.1 L ABG HCO3 ABG O2 Saturation 89.9 L ABG Base Excess -4.5 L ABG Hemoglobin 13.3 L ABG Oxyhemoglobin ABG Sodium ABG Potassium ABG Glucose Oxyhemoglobin 88.4 L Carboxyhemoglobin Sodium Potassium Chloride Carbon Dioxide BUN Creatinine Glucose POC Glucose 313 H Hemoglobin A1c Calcium Phosphorus Magnesium Ferritin AST ALT Lactate Dehydrogenase Total Creatine Kinase C-Reactive Protein Total Protein Albumin Triglycerides Arterial Blood Glucose Arterial Blood Ionized Calcium Urine Creatinine Urine Total Protein Coronavirus (PCR) 10/23/21 10/23/21 10/24/21 12:05 22:54 05:09 Hgb MCV MCH MCHC RDW Lymph % (Auto) Lymph # (Auto) Seg Neutrophils % Seg Neutrophils # D-Dimer Heparin Anti-Xa Level ABG pH 7.161 L* POC ABG pCO2 POC ABG pO2 ABG pO2 71.5 L ABG HCO3 ABG O2 Saturation 91.8 L ABG Base Excess -4.7 L ABG Hemoglobin 11.6 L ABG Oxyhemoglobin ABG Sodium ABG Potassium ABG Glucose Oxyhemoglobin 90.4 L Carboxyhemoglobin Sodium Potassium Chloride Carbon Dioxide BUN Creatinine Glucose POC Glucose 333 H 326 H Hemoglobin A1c Calcium Phosphorus Magnesium Ferritin AST ALT Lactate Dehydrogenase Total Creatine Kinase C-Reactive Protein Total Protein Albumin Triglycerides Arterial Blood Glucose Arterial Blood Ionized Calcium Urine Creatinine Urine Total Protein Coronavirus (PCR) 10/24/21 10/24/21 10/24/21 05:30 05:30 05:30 Hgb 11.7 L MCV 80 L MCH 26 L MCHC RDW 15.5 H Lymph % (Auto) Lymph # (Auto) Seg Neutrophils % Seg Neutrophils # D-Dimer Heparin Anti-Xa Level ABG pH POC ABG pCO2 POC ABG pO2 ABG pO2 ABG HCO3 ABG O2 Saturation ABG Base Excess ABG Hemoglobin ABG Oxyhemoglobin ABG Sodium ABG Potassium ABG Glucose Oxyhemoglobin Carboxyhemoglobin Sodium 133 L Potassium 5.8 H Chloride 93.6 L Carbon Dioxide 19 L BUN 97 H Creatinine 5.7 H Glucose 307 H POC Glucose Hemoglobin A1c Calcium 7.4 L Phosphorus 11.10 H Magnesium 2.80 H Ferritin 1307.0 H AST 79 H ALT 171 H Lactate Dehydrogenase Total Creatine Kinase C-Reactive Protein Total Protein Albumin 3.2 L Triglycerides Arterial Blood Glucose Arterial Blood Ionized Calcium Urine Creatinine Urine Total Protein Coronavirus (PCR) 10/24/21 10/24/21 10/24/21 05:30 05:39 11:39 Hgb MCV MCH MCHC RDW Lymph % (Auto) Lymph # (Auto) Seg Neutrophils % Seg Neutrophils # D-Dimer Heparin Anti-Xa Level 0.13 L ABG pH POC ABG pCO2 POC ABG pO2 ABG pO2 ABG HCO3 ABG O2 Saturation ABG Base Excess ABG Hemoglobin ABG Oxyhemoglobin ABG Sodium ABG Potassium ABG Glucose Oxyhemoglobin Carboxyhemoglobin Sodium Potassium Chloride Carbon Dioxide BUN Creatinine Glucose POC Glucose 271 H 196 H Hemoglobin A1c Calcium Phosphorus Magnesium Ferritin AST ALT Lactate Dehydrogenase Total Creatine Kinase C-Reactive Protein Total Protein Albumin Triglycerides Arterial Blood Glucose Arterial Blood Ionized Calcium Urine Creatinine Urine Total Protein Coronavirus (PCR) 10/24/21 10/24/21 10/24/21 13:29 15:45 17:14 Hgb MCV MCH MCHC RDW Lymph % (Auto) Lymph # (Auto) Seg Neutrophils % Seg Neutrophils # D-Dimer Heparin Anti-Xa Level 0.21 L ABG pH POC ABG pCO2 POC ABG pO2 ABG pO2 ABG HCO3 ABG O2 Saturation ABG Base Excess ABG Hemoglobin ABG Oxyhemoglobin ABG Sodium ABG Potassium ABG Glucose Oxyhemoglobin Carboxyhemoglobin Sodium 135 L Potassium 5.1 H Chloride 94.1 L Carbon Dioxide BUN 67 H Creatinine 4.1 H Glucose 227 H POC Glucose 202 H Hemoglobin A1c Calcium 7.8 L Phosphorus Magnesium Ferritin AST ALT Lactate Dehydrogenase Total Creatine Kinase C-Reactive Protein Total Protein Albumin Triglycerides Arterial Blood Glucose Arterial Blood Ionized Calcium Urine Creatinine Urine Total Protein Coronavirus (PCR) 10/24/21 10/25/21 10/25/21 22:39 04:42 06:00 Hgb MCV MCH MCHC RDW Lymph % (Auto) Lymph # (Auto) Seg Neutrophils % Seg Neutrophils # D-Dimer Heparin Anti-Xa Level ABG pH POC ABG pCO2 POC ABG pO2 ABG pO2 ABG HCO3 ABG O2 Saturation ABG Base Excess ABG Hemoglobin ABG Oxyhemoglobin ABG Sodium ABG Potassium ABG Glucose Oxyhemoglobin Carboxyhemoglobin Sodium Potassium Chloride Carbon Dioxide BUN Creatinine Glucose POC Glucose 215 H 223 H Hemoglobin A1c Calcium Phosphorus Magnesium Ferritin AST ALT Lactate Dehydrogenase Total Creatine Kinase C-Reactive Protein Total Protein Albumin Triglycerides 492 H Arterial Blood Glucose Arterial Blood Ionized Calcium Urine Creatinine Urine Total Protein Coronavirus (PCR) 10/25/21 10/25/21 06:00 06:00 Hgb MCV 79 L MCH 25 L MCHC RDW 15.4 H Lymph % (Auto) Lymph # (Auto) Seg Neutrophils % Seg Neutrophils # D-Dimer Heparin Anti-Xa Level ABG pH POC ABG pCO2 POC ABG pO2 ABG pO2 ABG HCO3 ABG O2 Saturation ABG Base Excess ABG Hemoglobin ABG Oxyhemoglobin ABG Sodium ABG Potassium ABG Glucose Oxyhemoglobin Carboxyhemoglobin Sodium 136 L Potassium 5.2 H Chloride 95.9 L Carbon Dioxide BUN 85 H Creatinine 3.6 H Glucose 246 H POC Glucose Hemoglobin A1c Calcium 7.6 L Phosphorus Magnesium Ferritin AST ALT Lactate Dehydrogenase Total Creatine Kinase C-Reactive Protein Total Protein Albumin Triglycerides Arterial Blood Glucose Arterial Blood Ionized Calcium Urine Creatinine Urine Total Protein Coronavirus (PCR)
[2021-10-25] MEDS ORDERED: MIDAZOLAM 2 MG/2 ML INJ IV ONE (11:00)
[2021-10-25] MEDS: CISATRACURIUM 10 MG in SODIUM CHLORIDE 0.9% 95 ML IV SCH ×4 (11:15→23:54)
--- NOTE | 2021-10-25 13:13 | Progress Note ---
<JOAN SERRANO - Last Filed: 10/26/21 07:41> Assessment and Plan Assessment and plan: This is a 26-year-old male with HTN, DM, asthma and gout admitted with COVID-19 pneumonia and pulmonary embolism. Hospital Course to Date: 10/19: Patient is currently anxious and restless with moderate respiratory distress. He is hypoxic and needing nasal cannula to and NRB alternately. BP and pulse stable. Patient has dry cough. Afebrile. No acute GI symptoms currently. 10/20: Patient was a code met from the floor to ICU. Patient was initially placed on BiPAP however due to his anxiety he was unable to tolerate and ultimately was intubated. Patient is currently sedated on fentanyl and Versed. Central line and Scott catheter placed today. Bilateral respirations in place. and mother updated at bedside today. 10/21: BUN/Cr increase noted and nephro consulted. Nephro will like to start HD. Femoral vascath placement delayed d/t elevated aPTT and renal US. CCM made changes to vent. Hyperkalemia medically treated. and mother updated at bedside by FIELD SUPPORT REPRESENTATIVE. Vascath and christi placed. HD RN aware 10/22: HD planned for today, steroids changed to Solu-Medrol 60 every 8 and long-acting insulin. Patient is stacking breaths and SPO2 in the upper 80s. We will add Precedex for increased sedation. Increasing FiO2 due to desaturation overnight. 10/23: Nephrology will medically treat potassium and HD tomorrow, increase in vent settings overnight due to hypoxia. Remains sedated on Precedex, fentanyl, Versed and propofol. Increase in Lantus today, tube feedings held due to high residuals, increase in total volume. and mother updated at bedside today. HD removed 3 L of fluid yesterday per HD nurse documentation. 10/24: Patient remains intubated and sedated, RASS -4. Remains hyperkalemic this am, HD at the bedside, K to be corrected, will repeat BMP in 4 to 6hrs. TF re julieta on hold due to high residual, no vomiting. IV reglan initiated, will do trickle feeds for now and reassess in the am. 10/25: Patient raffy down into the 40s overnight, precedex gtt held. s/p X1 dose of IVP Robert this am for vent synchrony. Plan for possible nimbex gtt for 48hrs. Patient is still hyperkalemic this am, no intervention at this time per Nephro plan for HD tomorrow. Basal dose lantus was increased for tighter glycemic control. Assessment and Plan #Neuro:Sedated #H/o Anxiety - Intubated and sedated, RASS -2 - Currently sedated on propofol, fentanyl, Versed gtts - Sedation for vent synchrony - Precedex gtt held overnight due to bradycardia - s/p X1 dose of ROBERT IVF this am - Plan to possibly initiated nimbex gtt for vent synchrony - Bilateral soft restraints in place for safety - Avoid delirium - Maintain sleep-wake cycle #Cardio:Raffy #Cardiomegaly #h/o HTN -CTA chest showed mild cardiomegaly without evidence of right heart strain -HR dropped in the 40s overnight, probably related to precedex gtt, now on hold -Hold home antihypertensive regimen -Blood pressure monitoring per protocol -Christi placed 10/21 -Echo shows Normal echocardiogram, LV EF within normal range of 50 to 55%, mild diastolic dysfunction evidenced by impaired relaxation pattern, no pericardial effusion -Vasopressor support with Levophed if needed -Goal MAP greater than 65 #Respiratory: Acute hypoxic respiratory failure 2/2 COVID vs PE #COVID PNA #Pulmonary embolism #h/o asthma -S/p BiPAP and OptiFlow/nonrebreather -CCM consulted, appreciate recommendations -Intubated on 10/20 with 8.00 ETT at 24 cm at the right lip -Vent Setting: PRVC- 100%,18,18,525 -VAP bundle addressed -Aspiration precaution HOB above 30 -Daily SBT and SAT trials as tolerated -Daily ABG and CXR -Continue SPO2 monitoring for SPO2 goal above 92% #GI:Transaminitis #Hepatic steatosis #Morbid obesity -CTA chest showed hepatic steatosis -Nutrition consult for tube feeding -Reglan started -Trickle feeds for now, residual 180cc overnight -BR: Senokot -PPI -Acute hepatitis panel negative #:Acute renal injury most likely ATN #Hyperkalemia #Rhabdomyolysis -Cr/BUN 0.8/20 and increased to 2.3/43 -10/21 prompting renal consult and initiation of dialysis -nephrology consulted, appreciate recommendations -renal US in progress -10/21 FeNa at 0.4 indicating prerenal -HD to be initiated 10/21 -HD per nephrology - High K this am -Plan for HD in the am -Strict intake and output with Scott catheter -Intervene with electrolytes as needed -Trend BMP -Kayexalate per renal #ID: COVID-19 pneumonia and influenza -CTA chest showed bilateral lung infiltrates concerning for atypical pneumonia -Infectious disease consulted, appreciate recommendations -Droplet/isolation precautions -IV dexamethasone for 10 days () -Twice daily dosing for morbid obesity -Steroids changed to methylprednisone 60 every 8 per [facility] -S/p Actemra 10/20/2021 -Tamiflu for 5 days () -Procal 0.49 -Antibiotic therapy: Azithromycin (), Rocephin (10/19 -10/23) -S/p IV remdesivir x1 on 10/20 -Trend COVID-19 inflammatory markers -Anticoagulation for pulmonary embolism #Endo: Hyperglycemia #h/o DM -Hemoglobin A1c 7.9 -Patient is on steroids -Continue SSI and Accu-Cheks every 6 -On Lantus Qhs, dose increased to 35units -Avoid hypoglycemia -While critically ill target blood glucose of 140-180 #Heme: Pulmonary embolism -CTA chest showed pulmonary embolus without evidence of right heart strain -Systemic anticoagulation with heparin drip -Bilateral lower extremity SCDs while in bed -Trend CBC -Transfuse for hemoglobin less than 7 The high probability of a clinically significant, sudden or life threatening deterioration of the [multi] system(s) required my full and direct attention, intervention and personal management. The aggregate critical care time was [60] minutes. This time is in addition to time spent performing reported procedures but includes the following: [x] Data Review and interpretation [x] Patient assessment and monitoring of vital signs [x] Documentation [x] Medication orders and management Disposition Plan: ICU Total Time Spent with Patient (Minutes): 60 History Interval history: Patient seen and examined at the bedside. Intubated and sedated, on propofol, versede, fentanyl, RASS -2. Per RN, patient raffy down into the 40s overnight, precedex gtt is on hold. X1 dose of ROBERT administered this morning. Patient remains on the heparin gtt. Patient is tolerating trickle feeding, no vomiting, residual of 180 cc overnight Hospitalist Physical - Constitutional Vitals: Temp Pulse Resp BP Pulse Ox 96 F L 77 26 H 128/68 100 10/25/21 09:58 10/25/21 11:43 10/25/21 11:00 10/25/21 11:43 10/25/21 11:43 General appearance: Present: no acute distress, well-nourished, obese (Morbid obese with BMI 47), other (Intubated and sedated) - EENT Eyes: Present: PERRL - Respiratory Respiratory effort: labored, accessory muscle use Respiratory: bilateral: rhonchi - Cardiovascular Rhythm: regular Heart Sounds: Present: S1 & S2 - Extremities Extremities: no ischemia, pulses intact, pulses symmetrical Extremity abnormal: edema - Peripheral Assessment Generalized Edema Type: Non-pitting Edema Degree: 1+ Capillary Refill: < 3 seconds Skin Temperature: Warm Peripheral Pulses: within normal limits - Abdominal General gastrointestinal: soft, non-tender, hypoactive bowel sounds - Integumentary Integumentary: Present: warm, dry - Psychiatric Psychiatric: other (Intubated and sedated) - Neurologic Neurologic: other (Intubated and sedated) - Allied Health Allied health notes reviewed: nursing HEART Score - HEART Score EKG: Normal Age: < 45 Risk factors: 1-2 risk factors Troponin: Troponin T < 0.010 ng/mL (0.00-0.029) 10/18/21 16:39 Troponin: < normal limit - Critical Actions Critical Actions: 0-3 pts:0.9-1.7%risk of adverse cardiac event.Candidate for discharge Results - Labs CBC & Chem 7: 10/26/21 04:02 10/26/21 04:02 Labs: Laboratory Last Values WBC 6.1 K/mm3 (4.5-11.0) 10/25/21 06:00 RBC 4.73 M/mm3 (3.65-5.03) 10/25/21 06:00 Hgb 11.8 gm/dl (11.8-15.2) 10/25/21 06:00 Hct 37.1 % (35.5-45.6) 10/25/21 06:00 MCV 79 fl (84-94) L 10/25/21 06:00 MCH 25 pg (28-32) L 10/25/21 06:00 MCHC 32 % (32-34) 10/25/21 06:00 RDW 15.4 % (13.2-15.2) H 10/25/21 06:00 Plt Count 379 K/mm3 (140-440) 10/25/21 06:00 Lymph % (Auto) 4.9 % (13.4-35.0) L 10/19/21 23:52 Bland % (Auto) 5.3 % (0.0-7.3) 10/19/21 23:52 Eos % (Auto) 0.0 % (0.0-4.3) 10/19/21 23:52 Baso % (Auto) 0.1 % (0.0-1.8) 10/19/21 23:52 Lymph # (Auto) 0.5 K/mm3 (1.2-5.4) L 10/19/21 23:52 Bland # (Auto) 0.5 K/mm3 (0.0-0.8) 10/19/21 23:52 Eos # (Auto) 0.0 K/mm3 (0.0-0.4) 10/19/21 23:52 Baso # (Auto) 0.0 K/mm3 (0.0-0.1) 10/19/21 23:52 Seg Neutrophils % 89.7 % (40.0-70.0) H 10/19/21 23:52 Seg Neutrophils # 8.9 K/mm3 (1.8-7.7) H 10/19/21 23:52 PT 14.8 Sec. (12.2-14.9) 10/20/21 13:30 INR 1.05 (0.87-1.13) 10/20/21 13:30 APTT 36.1 Sec. (24.2-36.6) 10/20/21 13:30 D-Dimer 1019.09 ng/mlDDU (0-234) H 10/23/21 04:45 Heparin Anti-Xa Level 0.39 U.I./ml (0.3-0.7) 10/25/21 06:00 ABG pH 7.161 pH Units (7.350-7.450) L* 10/24/21 05:09 POC ABG pCO2 69.9 mmHg (32.0-48.0) H 10/21/21 09:34 ABG pCO2 71.5 mm Hg 10/24/21 05:09 POC ABG pO2 65.6 mmHg (83-108) L 10/21/21 09:34 ABG pO2 71.5 mm Hg (80.0-90.0) L 10/24/21 05:09 POC ABG HCO3 24.5 10/21/21 09:34 ABG HCO3 25.0 mmol/L (20.0-26.0) 10/24/21 05:09 ABG O2 Saturation 91.8 % (95.0-99.0) L 10/24/21 05:09 ABG O2 Content 14.8 (0.0-44) 10/24/21 05:09 POC ABG Base Excess -5.4 10/21/21 09:34 ABG Base Excess -4.7 mmol/L (-2.0-3.0) L 10/24/21 05:09 ABG Hemoglobin 11.6 gm/dl (14.0-18.0) L 10/24/21 05:09 ABG Oxyhemoglobin 89.7 (94-98) L 10/21/21 09:34 ABG Carboxyhemoglobin 1.1 % (0.0-5.0) 10/24/21 05:09 ABG Methemoglobin 0.5 % (0.0-1.5) 10/24/21 05:09 ABG Sodium 138.1 mmol/L (136.0-145.0) 10/21/21 09:34 ABG Potassium 6.5 mmol/L (3.40-4.50) H 10/21/21 09:34 ABG Chloride 102.0 mmol/L (98-107) 10/21/21 09:34 ABG Glucose 190 mg/dL (65-95) H 10/21/21 09:34 Oxyhemoglobin 90.4 % (95.0-99.0) L 10/24/21 05:09 Carboxyhemoglobin 0.4 (0.5-1.5) L 10/21/21 09:34 FiO2 100 % 10/24/21 05:09 FiO2 % 100.0 10/21/21 09:34 Sodium 136 mmol/L (137-145) L 10/25/21 06:00 Potassium 5.2 mmol/L (3.6-5.0) H 10/25/21 06:00 Chloride 95.9 mmol/L (98-107) L 10/25/21 06:00 Carbon Dioxide 22 mmol/L (22-30) 10/25/21 06:00 Anion Gap 23 mmol/L 10/25/21 06:00 BUN 85 mg/dL (9-20) H 10/25/21 06:00 Creatinine 3.6 mg/dL (0.8-1.3) H 10/25/21 06:00 Estimated GFR 25 ml/min 10/25/21 06:00 BUN/Creatinine Ratio 24 % 10/25/21 06:00 Glucose 246 mg/dL (75-100) H 10/25/21 06:00 POC Glucose 188 mg/dL (70-105) H 10/25/21 11:50 Hemoglobin A1c 7.9 % (4-6) H 10/19/21 23:52 Lactic Acid 1.40 mmol/L (0.7-2.0) 10/18/21 16:39 Calcium 7.6 mg/dL (8.4-10.2) L 10/25/21 06:00 Phosphorus 11.10 mg/dL (2.5-4.5) H 10/24/21 05:30 Magnesium 2.80 mg/dL (1.7-2.3) H 10/24/21 05:30 Ferritin 1307.0 ng/mL (30.0-300.0) H 10/24/21 05:30 Total Bilirubin 0.20 mg/dL (0.1-1.2) 10/24/21 05:30 AST 79 units/L (5-40) H 10/24/21 05:30 ALT 171 units/L (7-56) H 10/24/21 05:30 Alkaline Phosphatase 73 units/L (35-129) 10/24/21 05:30 Lactate Dehydrogenase 712 units/L (91-180) H 10/23/21 04:45 Total Creatine Kinase 1484 units/L (55-170) H 10/18/21 16:39 CK-MB (CK-2) 3.3 ng/mL (0.0-4.0) 10/18/21 16:39 CK-MB (CK-2) Rel Index 0.2 (0-4) 10/18/21 16:39 Troponin T < 0.010 ng/mL (0.00-0.029) 10/18/21 16:39 C-Reactive Protein 6.40 mg/dL (0.00-1.30) H 10/23/21 04:45 Total Protein 6.9 g/dL (6.3-8.2) 10/24/21 05:30 Albumin 3.2 g/dL (3.9-5) L 10/24/21 05:30 Albumin/Globulin Ratio 0.9 % 10/24/21 05:30 Triglycerides 492 mg/dL (2-149) H 10/25/21 06:00 Lipase 15 units/L (13-60) 10/18/21 16:39 Procalcitonin 0.49 ng/mL (<0.15) 10/19/21 23:52 Arterial Blood Glucose 190 mg/dL (65-95) H 10/21/21 09:34 Arterial Blood Ionized Calcium 4.2 mg/dL (4.6-5.3) L 10/21/21 09:34 Urine Color Yellow (Yellow) 10/18/21 22:26 Urine Turbidity Clear (Clear) 10/18/21 22:26 Urine pH 6.0 (5.0-7.0) 10/18/21 22:26 Ur Specific [place] 1.025 (1.003-1.030) 10/18/21 22:26 Urine Protein 100 mg/dl mg/dL (Negative) 10/18/21 22:26 Urine Glucose (UA) Neg mg/dL (Negative) 10/18/21 22:26 Urine Ketones Neg mg/dL (Negative) 10/18/21 22:26 Urine Blood Sm (Negative) 10/18/21 22:26 Urine Nitrite Neg (Negative) 10/18/21 22:26 Urine Bilirubin Neg (Negative) 10/18/21 22:26 Urine Urobilinogen < 2.0 mg/dL (<2.0) 10/18/21 22:26 Ur Leukocyte Esterase Neg (Negative) 10/18/21 22:26 Urine WBC (Auto) < 1.0 /HPF (0.0-6.0) 10/18/21 22:26 Urine RBC (Auto) < 1.0 /HPF (0.0-6.0) 10/18/21 22:26 U Epithel Cells (Auto) < 1.0 /HPF (0-13.0) 10/18/21 22:26 Urine Bacteria (Auto) 1+ /HPF (Negative) 10/18/21 22:26 Urine Creatinine 153.1 mg/dL (0.1-20.0) H 10/21/21 Unknown Urine Sodium 31 mmol/L 10/21/21 Unknown Urine Total Protein 173 mg/dL (5-11.8) H 10/21/21 Unknown Coronavirus (PCR) Positive (Negative) A 10/19/21 08:24 Hepatitis A IgM Ab Non-reactive (NonReactive) 10/19/21 23:52 Hep Bs Antigen Nonreactive (Negative) 10/19/21 23:52 Hep B Core IgM Ab Non-reactive (NonReactive) 10/19/21 23:52 Hepatitis C Antibody Non-reactive (NonReactive) 10/19/21 23:52 Microbiology: Microbiology 10/20/21 14:50 Tracheal Aspirate Sputum Culture - Final Scott/IV: Voiding Method Indwelling Catheter Active Medications - Current Medications Current Medications: Generic Name Dose Route Start Last Admin Trade Name Freq PRN Reason Stop Dose Admin Acetaminophen 650 mg 10/20/21 13:30 Acetaminophen 325 Mg/10.15 Ml Oral Liqd Unit Dose FEEDTUBE Q6H PRN Pain MILD(1-3)/Fever >100.5/HUSSEIN Al Hydrox/Mg Hydrox/Simethicone 30 ml 10/20/21 13:30 Alum-Mag Hydroxide-Simethicone 625-232-60vx/5ml Oral Liqd 30 Ml PO Q4H PRN Indigestion Lipase/Protease/Amylase 1 each 10/20/21 15:15 Lipase 10,500/Protease 25,000/Amylase 43,750 (Units) Cap FEEDTUBE PRN PRN For Clogged Feeding Tube Bisacodyl 10 mg 10/20/21 13:30 Bisacodyl 10 Mg Rect Supp DE QDAY PRN constipation unrelieved by MOM Calcium Acetate 1,334 mg 10/23/21 08:00 10/25/21 07:22 Calcium Acetate 667 Mg Cap PO 1,334 mg TID ALBIN Administration Dextrose 50 ml 10/20/21 13:30 Dextrose 50% In Water (25gm) 50 Ml Syringe IV Q30MIN PRN Hypoglycemia Protocol Famotidine 10 mg 10/21/21 10:00 10/25/21 10:34 Famotidine 20 Mg/2 Ml Inj IV 10 mg BID ALBIN Administration Fentanyl 50 mcg 10/20/21 13:25 10/25/21 10:19 Fentanyl 100 Mcg/2 Ml Inj IV 50 mcg Q10MIN PRN Administration ANALGESIA Heparin Sodium (Porcine) 5,000 unit 10/20/21 10:41 10/21/21 17:19 Heparin 10,000 Units/10 Ml Vial IV 5,000 unit Q6H PRN Administration Anti-Xa Assay < 0.1 units/ml Hydrophilic Ointment 1 applic 10/20/21 13:25 Lip Therapy Vaseline TP Q2HR PRN Dry Lips Heparin Sodium/Sodium Chloride 25,000 unit in 500 mls @ 30 mls/hr 10/20/21 20:00 10/25/21 07:04 Heparin/ 0.45% Nacl-25,000 Unit/500 Ml IV 1,200 units/hr TITR ALBIN 24 mls/hr Titration Protocol 1,500 UNITS/HR Midazolam HCl 100 mg/ Sodium 100 mls @ 2 mls/hr 10/20/21 14:00 10/24/21 18:57 Chloride IV 5 mg/hr TITR ALBIN 5 mls/hr Administration Protocol 2 MG/HR Fentanyl Citrate 2,000 mcg in 100 mls @ 7.938 mls/hr 10/20/21 14:00 10/25/21 12:07 Fentanyl Drip Premix IV 4 mcg/kg/hr TITR ALBIN 31.751 mls/hr Administration Protocol 1 MCG/KG/HR Propofol 1,000 mg in 100 mls @ 4.763 mls/hr 10/20/21 14:00 10/25/21 12:38 Diprivan 10 Mg/Ml IV 50 mcg/kg/min TITR ALBIN 47.627 mls/hr Administration Protocol 5 MCG/KG/MIN Sodium Chloride 1,000 mls @ 1 mls/hr 10/20/21 14:30 Nacl 0.9% 500 Ml IV DIRECT PRN ARTERIAL LINE FLUSH Sodium Chloride 100 mls @ 999 mls/hr 10/22/21 11:48 Nacl 0.9% IV MAYLIN PRN Hypotension Dexmedetomidine HCl 400 mcg/ 104 mls @ 8.258 mls/hr 10/22/21 16:00 10/25/21 09:00 Sodium Chloride IV 0 mcg/kg/hr TITRATE ALBIN 0 mls/hr Titration Protocol 0.2 MCG/KG/HR NORepinephrine/NS 8 MG-250 ML 8 mg in 250 mls @ 3.75 mls/hr 10/22/21 18:00 10/23/21 08:20 Norepinephrine/Ns 8 Mg-250 Ml (Double Conc) IV 0 mcg/min TITRATE ALBIN 0 mls/hr Titration Protocol 2 MCG/MIN Cisatracurium Besylate 10 mg/ 100 mls @ 23.82 mls/hr 10/25/21 11:00 10/25/21 11:15 Sodium Chloride IV 10/27/21 10:59 0.25 mcg/kg/min TITR ALBIN 23.82 mls/hr Administration Protocol 0.25 MCG/KG/MIN Insulin Glargine 35 units 10/25/21 22:00 Insulin Glargine 100 Units/Ml SUB-Q QHS ALBIN Insulin Human Lispro 0 unit 10/24/21 18:00 10/25/21 12:38 Insulin Lispro 100 Unit/Ml SUB-Q 3 unit Q6HR ALBIN Administration Protocol Methylprednisolone Sodium Succinate 60 mg 10/22/21 14:00 10/25/21 05:11 Methylprednisolone Sod Succinate 125 Mg/2 Ml Inj IV 60 mg Q8HR ALBIN Administration Metoclopramide HCl 5 mg 10/24/21 08:00 10/25/21 12:07 Metoclopramide 10 Mg/2 Ml Inj IV 5 mg Q6HR ALBIN Administration Midazolam HCl 2 mg 10/20/21 13:25 10/23/21 04:20 Midazolam 2 Mg/2 Ml Inj IV 2 mg Q10MIN PRN Administration Sedation Multi-Ingred Cream/Lotion/Oil/Oint 1 applic 10/20/21 13:25 Mineral Oil/Petrolatum, White Ophth Oint 3.5 Gm OU Q4HR PRN Dry Eye(s) Ondansetron HCl 4 mg 10/19/21 04:21 Ondansetron 4 Mg/2 Ml Inj IV Q8H PRN Nausea And Vomiting Promethazine HCl 25 mg 10/19/21 04:38 10/20/21 05:06 Promethazine 25 Mg Tab PO 25 mg Q6H PRN Administration Nausea And Vomiting Senna 8.8 mg 10/20/21 22:00 10/25/21 10:34 Sennosides Oral Liqd 8.8 Mg/5 Ml Oral Liqd FEEDTUBE 8.8 mg BID ALBIN Administration Simple Syrup 15 ml 10/20/21 15:15 Simple Syrup 15 Ml FEEDTUBE PRN PRN Hypoglycemia Simple Syrup 30 ml 10/20/21 15:15 Simple Syrup 15 Ml FEEDTUBE PRN PRN Hypoglycemia Sodium Bicarbonate 325 mg 10/20/21 15:15 Sodium Bicarbonate 325 Mg Tab FEEDTUBE PRN PRN For Clogged Feeding Tube Sodium Chloride 10 ml 10/19/21 10:00 10/25/21 10:34 Sodium Chloride 0.9% 10 Ml Flush Syringe IV 10 ml BID ALBIN Administration Sodium Chloride 10 ml 10/19/21 04:26 Sodium Chloride 0.9% 10 Ml Flush Syringe IV PRN PRN flush prior to & after IV med Nutrition/Malnutrition Assess - Dietary Evaluation Nutrition/Malnutrition Findings: Nutrition Notes Start: 10/19/21 14:34 Freq: Status: Active Protocol: Document 10/24/21 14:55 REESE (Rec: 10/24/21 15:04 WIALL [id number]) Nutrition Notes Initial or Follow up Reassessment Current Diagnosis Diabetes,Hypertension, Respiratory Failure Other Pertinent Diagnosis COVID-19 pneu, hepatic steatosis, asthma, gout, pulmonary embolism Current Diet TF - Nepro at 53ml/hr Labs/Tests Na 133 BG 307 K 5.8 BUN 97 Cr 5.7 Phos 11.1 Mg 2.8 Pertinent Medications Phoslo, Solumedrol, Reglan ( ordered this am), Propofol at 38.102ml/hr (provides 1006 kcal) Height 6 ft Weight 158.8 kg [place] Body Weight (kg) 80.90 BMI 47.5 Weight Status Morbidly Obese Subjective/Other Information Pt with high gastric residuals (>500) since yesterday. TF had been on hold. Spoke with RN via phone at 14:53. ordered reglan and TF restart at 10ml/hr. Pt remains on vent support. (Propofol providing nearly 50% of energy needs) Burn Absent Trauma Absent Minimum of two criteria No #1 Nutrition Diagnosis Inadequate oral intake Diagnosis Progress(for reassessment Continues documentation) Is patient on ventilator? Yes Is Patient Ambulatory and/or Out of Bed No REE-([facility]-confined to bed) 4779.065 Calculation Used for Recommendations 70-80% energy needs Additional Notes Energy needs: 9251-3583 kcal/ day Pro needs 1.3g/kg adjBW: 156g/ day Fluid needs 1ml/kcal Nutrition Intervention Nutrition Support: Continue Nepro at 10ml/hr; increase rate as tolerated to goal of 53ml/hr. Kcal 432 Protein (gm) 19 Goal #1 TF tolerance Goal #2 Increase TF to goal rate to meet nutrient needs as best possible Follow-Up By: 10/27/21 Additional Comments F/U: TF tolerance, TF rate, vent status, renal function, propofol <MOHSEN HANDY R - Last Filed: 10/29/21 11:32> Assessment and Plan Assessment and plan: I saw and evaluated the patient 10/25/21. I agree with the findings and the plan of care as documented in the Nurse Practitioner's~note, patient is critically ill with very poor prognosis. Hospitalist Physical - Constitutional Vitals: Temp Pulse Resp BP Pulse Ox 101.1 F H 163 H 0 L 59/24 0 L 10/28/21 19:55 10/28/21 21:41 10/28/21 21:53 10/28/21 21:53 10/28/21 23:42 HEART Score - HEART Score Troponin: Troponin T < 0.010 ng/mL (0.00-0.029) 10/18/21 16:39 Results - Labs CBC & Chem 7: 10/28/21 07:09 10/28/21 07:09 Labs: Laboratory Last Values WBC 9.5 K/mm3 (4.5-11.0) 10/28/21 07:09 RBC 4.58 M/mm3 (3.65-5.03) 10/28/21 07:09 Hgb 11.5 gm/dl (11.8-15.2) L 10/28/21 07:09 Hct 36.7 % (35.5-45.6) 10/28/21 07:09 MCV 80 fl (84-94) L 10/28/21 07:09 MCH 25 pg (28-32) L 10/28/21 07:09 MCHC 31 % (32-34) L 10/28/21 07:09 RDW 16.3 % (13.2-15.2) H 10/28/21 07:09 Plt Count 357 K/mm3 (140-440) 10/28/21 07:09 Lymph % (Auto) 4.9 % (13.4-35.0) L 10/19/21 23:52 [place]land % (Auto) 5.3 % (0.0-7.3) 10/19/21 23:52 Eos % (Auto) 0.0 % (0.0-4.3) 10/19/21 23:52 Baso % (Auto) 0.1 % (0.0-1.8) 10/19/21 23:52 Lymph # (Auto) 0.5 K/mm3 (1.2-5.4) L 10/19/21 23:52 Bland # (Auto) 0.5 K/mm3 (0.0-0.8) 10/19/21 23:52 Eos # (Auto) 0.0 K/mm3 (0.0-0.4) 10/19/21 23:52 Baso # (Auto) 0.0 K/mm3 (0.0-0.1) 10/19/21 23:52 Seg Neutrophils % 89.7 % (40.0-70.0) H 10/19/21 23:52 Seg Neutrophils # 8.9 K/mm3 (1.8-7.7) H 10/19/21 23:52 PT 14.8 Sec. (12.2-14.9) 10/20/21 13:30 INR 1.05 (0.87-1.13) 10/20/21 13:30 APTT 36.1 Sec. (24.2-36.6) 10/20/21 13:30 D-Dimer 1019.09 ng/mlDDU (0-234) H 10/23/21 04:45 Heparin Anti-Xa Level 0.35 U.I./ml (0.3-0.7) 10/28/21 07:09 ABG pH 7.281 pH Units (7.350-7.450) L 10/28/21 18:07 POC ABG pCO2 69.9 mmHg (32.0-48.0) H 10/21/21 09:34 ABG pCO2 57.6 mm Hg 10/28/21 18:07 POC ABG pO2 65.6 mmHg (83-108) L 10/21/21 09:34 ABG pO2 55.5 mm Hg (80.0-90.0) L 10/28/21 18:07 POC ABG HCO3 24.5 10/21/21 09:34 ABG HCO3 26.5 mmol/L (20.0-26.0) H 10/28/21 18:07 ABG O2 Saturation 82.7 % (95.0-99.0) L 10/28/21 18:07 ABG O2 Content 14.9 (0.0-44) 10/28/21 18:07 POC ABG Base Excess -5.4 10/21/21 09:34 ABG Base Excess -1.2 mmol/L (-2.0-3.0) 10/28/21 18:07 ABG Hemoglobin 13.1 gm/dl (14.0-18.0) L 10/28/21 18:07 ABG Oxyhemoglobin 89.7 (94-98) L 10/21/21 09:34 ABG Carboxyhemoglobin 1.6 % (0.0-5.0) 10/28/21 18:07 ABG Methemoglobin 0.7 % (0.0-1.5) 10/28/21 18:07 ABG Sodium 138.1 mmol/L (136.0-145.0) 10/21/21 09:34 ABG Potassium 6.5 mmol/L (3.40-4.50) H 10/21/21 09:34 ABG Chloride 102.0 mmol/L (98-107) 10/21/21 09:34 ABG Glucose 190 mg/dL (65-95) H 10/21/21 09:34 Oxyhemoglobin 80.8 % (95.0-99.0) L 10/28/21 18:07 Carboxyhemoglobin 0.4 (0.5-1.5) L 10/21/21 09:34 FiO2 100 % 10/28/21 18:07 FiO2 % 100.0 10/21/21 09:34 Sodium 156 mmol/L (137-145) H D 10/28/21 07:09 Potassium 5.5 mmol/L (3.6-5.0) H 10/28/21 07:09 Chloride 117.3 mmol/L (98-107) H 10/28/21 07:09 Carbon Dioxide 26 mmol/L (22-30) 10/28/21 07:09 Anion Gap 18 mmol/L 10/28/21 07:09 BUN 66 mg/dL (9-20) H 10/28/21 07:09 Creatinine 1.0 mg/dL (0.8-1.3) 10/28/21 07:09 Estimated GFR > 60 ml/min 10/28/21 07:09 BUN/Creatinine Ratio 66 % 10/28/21 07:09 Glucose 145 mg/dL (75-100) H 10/28/21 07:09 POC Glucose 375 mg/dL (70-105) H 10/28/21 21:29 Hemoglobin A1c 7.9 % (4-6) H 10/19/21 23:52 Lactic Acid 1.40 mmol/L (0.7-2.0) 10/18/21 16:39 Calcium 8.8 mg/dL (8.4-10.2) 10/28/21 07:09 Phosphorus 11.10 mg/dL (2.5-4.5) H 10/24/21 05:30 Magnesium 2.80 mg/dL (1.7-2.3) H 10/24/21 05:30 Ferritin 1307.0 ng/mL (30.0-300.0) H 10/24/21 05:30 Total Bilirubin 0.20 mg/dL (0.1-1.2) 10/24/21 05:30 AST 79 units/L (5-40) H 10/24/21 05:30 ALT 171 units/L (7-56) H 10/24/21 05:30 Alkaline Phosphatase 73 units/L (35-129) 10/24/21 05:30 Lactate Dehydrogenase 712 units/L (91-180) H 10/23/21 04:45 Total Creatine Kinase 1484 units/L (55-170) H 10/18/21 16:39 CK-MB (CK-2) 3.3 ng/mL (0.0-4.0) 10/18/21 16:39 CK-MB (CK-2) Rel Index 0.2 (0-4) 10/18/21 16:39 Troponin T < 0.010 ng/mL (0.00-0.029) 10/18/21 16:39 C-Reactive Protein 6.40 mg/dL (0.00-1.30) H 10/23/21 04:45 Total Protein 6.9 g/dL (6.3-8.2) 10/24/21 05:30 Albumin 3.2 g/dL (3.9-5) L 10/24/21 05:30 Albumin/Globulin Ratio 0.9 % 10/24/21 05:30 Triglycerides 392 mg/dL (2-149) H 10/27/21 04:20 Lipase 15 units/L (13-60) 10/18/21 16:39 Procalcitonin 0.49 ng/mL (<0.15) 10/19/21 23:52 Arterial Blood Glucose 190 mg/dL (65-95) H 10/21/21 09:34 Arterial Blood Ionized Calcium 4.2 mg/dL (4.6-5.3) L 10/21/21 09:34 Urine Color Yellow (Yellow) 10/28/21 10:10 Urine Turbidity Cloudy (Clear) 10/28/21 10:10 Urine pH 5.0 (5.0-7.0) 10/28/21 10:10 Ur Specific [place] 1.015 (1.003-1.030) 10/28/21 10:10 Urine Protein <15 mg/dl mg/dL (Negative) 10/28/21 10:10 Urine Glucose (UA) Neg mg/dL (Negative) 10/28/21 10:10 Urine Ketones Neg mg/dL (Negative) 10/28/21 10:10 Urine Blood Mod (Negative) 10/28/21 10:10 Urine Nitrite Neg (Negative) 10/28/21 10:10 Urine Bilirubin Neg (Negative) 10/28/21 10:10 Urine Urobilinogen < 2.0 mg/dL (<2.0) 10/28/21 10:10 Ur Leukocyte Esterase Neg (Negative) 10/28/21 10:10 Urine WBC (Auto) 3.0 /HPF (0.0-6.0) 10/28/21 10:10 Urine RBC (Auto) 71.0 /HPF (0.0-6.0) 10/28/21 10:10 U Epithel Cells (Auto) < 1.0 /HPF (0-13.0) 10/28/21 10:10 Urine Bacteria (Auto) 1+ /HPF (Negative) 10/18/21 22:26 Urine Yeast (Budding) 1+ /HPF 10/28/21 10:10 Urine Creatinine 153.1 mg/dL (0.1-20.0) H 10/21/21 Unknown Urine Sodium 31 mmol/L 10/21/21 Unknown Urine Total Protein 173 mg/dL (5-11.8) H 10/21/21 Unknown Coronavirus (PCR) Positive (Negative) A 10/19/21 08:24 Hepatitis A IgM Ab Non-reactive (NonReactive) 10/19/21 23:52 Hep Bs Antigen Nonreactive (Negative) 10/19/21 23:52 Hep B Core IgM Ab Non-reactive (NonReactive) 10/19/21 23:52 Hepatitis C Antibody Non-reactive (NonReactive) 10/19/21 23:52 Microbiology: Microbiology 10/28/21 12:32 Tracheal Aspirate Sputum Culture - Preliminary 10/28/21 09:45 Peripheral/Venous Blood Culture - Preliminary Culture in Progress 10/28/21 09:11 Peripheral/Venous Blood Culture - Preliminary Culture in Progress Scott/IV: Voiding Method Indwelling Catheter Nutrition/Malnutrition Assess - Dietary Evaluation Nutrition/Malnutrition Findings: Nutrition Notes Start: 10/19/21 14:34 Freq: Status: Discharge Protocol: Document 10/27/21 10:14 REESE (Rec: 10/27/21 10:20 REESE [id number]) Nutrition Notes Initial or Follow up Reassessment Current Diagnosis Diabetes,Hypertension, Respiratory Failure Other Pertinent Diagnosis COVID-19 pneu, hepatic steatosis, asthma, gout, pulmonary embolism Current Diet TF - Nepro at 53ml/hr Labs/Tests Na 146 BUN 102 Cr 1.8 BG 207 Pertinent Medications Colace (RN reports no BM since admission), Propofol at 47. 627 ml/hr (provides 1257 kcal) , Cisatracurium besylate gtt Height 6 ft Weight 158.8 kg [place] Body Weight (kg) 80.90 BMI 47.5 Weight Status Morbidly Obese Subjective/Other Information Gastric residuals remain > 300ml; TF continues at 10ml/hr . Pt remains on vent support; has not been tolerating vent. HD needs assessed on daily basis. Percent of energy/protein needs met: 77% energy 12% pro (includes kcal from propofol) Burn Absent Trauma Absent Minimum of two criteria No #1 Nutrition Diagnosis Inadequate oral intake Diagnosis Progress(for reassessment Continues documentation) Is patient on ventilator? Yes Is Patient Ambulatory and/or Out of Bed No REE-([facility]-confined to bed) [phone] Calculation Used for Recommendations 70-80% energy needs Additional Notes Energy needs: 2205-5430 kcal/ day Pro needs 1.3g/kg adjBW: 156g/ day Fluid needs 1ml/kcal Nutrition Intervention Nutrition Support: Continue Nepro at 10ml/hr; increase rate as tolerated to goal of 53ml/hr. Kcal 432 Protein (gm) 19 Goal #1 TF tolerance Goal #2 Increase TF to goal rate to meet nutrient needs as best possible Follow-Up By: 10/31/21 Additional Comments F/U: TF tolerance/rate increase, vent status, propofol, renal function
--- NOTE | 2021-10-25 14:09 | Progress Note ---
Assessment and Plan Cultures: SARS CoV2 PCR: positive 10/18/2021 blood culture: no growth 10/20/2021 sputum culture: Usual respiratory james A/P: 26-year-old male with hypertension, diabetes, gout admitted with cough and shortness of breath going on for 3 days. He tested positive for COVID-19 and influenza as an outpatient: #Bilateral pneumonia: Suspected secondary to COVID-19 and influenza. Completed Tamiflu. Received a few days of Remdesivir, then discontinued due to worsening of renal function. On steroids, status post Actemra on 10/20/2021. #Acute hypoxic respiratory failure: failed NRB / HFNC, on vent. #Acute pulmonary embolism: On anticoagulation #Acute renal failure, creatinine up to 5.7. requiring HD. #Morbid obesity #Transaminitis: Likely related to viral illness #Elevated CPK Recs: -continue steroids per pulmonary, for at least 10 days. benefit beyond that is unclear, patient has received Actemra as well -s/p Actemra 10/20/2021 -on anticoagulation for PE -completed empiric abx course, tamiflu -poor prognosis Maggi Aponte MD, FACP, [facility] O: [phone] F: [phone] Subjective Date of service: 10/25/21 Principal diagnosis: phan Interval history: No fever. Remains on the vent, 100% FiO2, 18 of PEEP. Sedated, paralyzed Objective - Exam Narrative Exam: Physical Exam (reviewed in chart to minimize risk of transmission) Constitutional: deferred Head, Ears, Nose: deferred Eyes: deferred Neck: deferred Oral: deferred Cardiovascular: deferred Respiratory: deferred GI: deferred Musculoskeletal: deferred Skin: deferred Hem/Lymphatic: deferred Psych: deferred Neurological: deferred - Constitutional Vitals: Vital Signs Temp Pulse Resp BP Pulse Ox 98.2 F 77 26 H 128/68 100 10/25/21 13:00 10/25/21 11:43 10/25/21 11:00 10/25/21 11:43 10/25/21 11:43 Temperature -Last 24 Hours Temperature 98.2 F Temperature 96 F Temperature 95.6 F Temperature 96.6 F - Labs CBC & Chem 7: 10/25/21 06:00 10/25/21 06:00 Labs: Abnormal lab results 10/24/21 10/24/21 10/24/21 Range/Units 13:29 15:45 17:14 MCV (84-94) fl MCH (28-32) pg RDW (13.2-15.2) % Heparin Anti-Xa Level 0.21 L (0.3-0.7) U.I./ml Sodium 135 L (137-145) mmol/L Potassium 5.1 H (3.6-5.0) mmol/L Chloride 94.1 L (98-107) mmol/L BUN 67 H (9-20) mg/dL Creatinine 4.1 H (0.8-1.3) mg/dL Glucose 227 H (75-100) mg/dL POC Glucose 202 H (70-105) mg/dL Calcium 7.8 L (8.4-10.2) mg/dL Triglycerides (2-149) mg/dL 10/24/21 10/25/21 10/25/21 Range/Units 22:39 04:42 06:00 MCV (84-94) fl MCH (28-32) pg RDW (13.2-15.2) % Heparin Anti-Xa Level (0.3-0.7) U.I./ml Sodium (137-145) mmol/L Potassium (3.6-5.0) mmol/L Chloride (98-107) mmol/L BUN (9-20) mg/dL Creatinine (0.8-1.3) mg/dL Glucose (75-100) mg/dL POC Glucose 215 H 223 H (70-105) mg/dL Calcium (8.4-10.2) mg/dL Triglycerides 492 H (2-149) mg/dL 10/25/21 10/25/21 10/25/21 Range/Units 06:00 06:00 11:50 MCV 79 L (84-94) fl MCH 25 L (28-32) pg RDW 15.4 H (13.2-15.2) % Heparin Anti-Xa Level (0.3-0.7) U.I./ml Sodium 136 L (137-145) mmol/L Potassium 5.2 H (3.6-5.0) mmol/L Chloride 95.9 L (98-107) mmol/L BUN 85 H (9-20) mg/dL Creatinine 3.6 H (0.8-1.3) mg/dL Glucose 246 H (75-100) mg/dL POC Glucose 188 H (70-105) mg/dL Calcium 7.6 L (8.4-10.2) mg/dL Triglycerides (2-149) mg/dL
[2021-10-25 14:32] LABS: ABG Base Excess -2.3 mmol/L (-2.0-3.0); ABG HCO3 25.2 mmol/L (20.0-26.0); ABG Methemoglobin 0.6 % (0.0-1.5); ABG Oxygen Saturation 94.7 % (95.0-99.0); ABG PCO2 55.5 mm Hg; ABG PH 7.275 pH Units (7.350-7.450); ABG PO2 78.7 mm Hg (80.0-90.0)
[2021-10-25] MEDS: HEPARIN/ 0.45% NACL DRIP 25,000 UNIT/500 ML BAG IV SCH (15:05)
[2021-10-25] MEDS ORDERED: ROCURONIUM 50 MG/5 ML INJ IV ONE ×2 (16:37→19:27)
[2021-10-25] MEDS ORDERED: MORPHINE 4 MG/1 ML INJ ONE ×2 (16:38→17:03)
--- NOTE | 2021-10-25 16:58 | XRay Report ---
CHEST 1 VIEW 4:12 PM INDICATION: Hypoxia. COMPARISON: Earlier today. FINDINGS: Support devices: Unchanged. Heart: Stable. Lungs/Pleura: There appear to be diffuse pulmonary opacities similar to the prior. No pneumothorax is seen. IMPRESSION: 1. No significant change. As on the prior the exam is limited due to patient body habitus. Signer Name: Ru Kaur MD Signed: 10/25/2021 4:53 PM Workstation Name: [id number]
[2021-10-25] MEDS ORDERED: fentaNYL 100 MCG/2 ML INJ IV ONE (17:00)
[2021-10-25] MEDS: MIDAZOLAM 100 MG in SODIUM CHLORIDE 0.9% 80 ML IV SCH (17:08)
[2021-10-25] MEDS: QUEtiapine 25 MG TAB PO SCH ×2 (17:43→22:15)
--- NOTE | 2021-10-25 17:55 | Electrocardiograph Report ---
[facility] Test Date: 2021-10-25 Test Time: 13:51:55 Pat Name: DONNA WALKER Department: Room: A254 1 Gender: M Building Attendant: MAME : 1995 Requested By: JOAN SERRANO Order Number: [id number] Reading MD: Steve Temple Measurements Intervals [place] Rate: 83 P: 57 FL: 144 QRS: 23 QRSD: 95 T: 33 QT: 403 QTc: 474 Interpretive Statements Sinus rhythm Compared to ECG 10/23/2021 08:58:10 No significant changes Electronically Signed On 10-25-2021 17:54:53 EST by Steve Temple
[2021-10-25] MEDS ORDERED: MORPHINE 4 MG/1 ML INJ IV ONE (19:28)
[2021-10-25] MEDS: INSULIN GLARGINE 100 UNITS/ML SUB-Q SCH (22:15)
[2021-10-26] MEDS: fentaNYL DRIP Premix 2,000 MCG/100 ML BAG IV SCH ×8 (00:28→21:32)
[2021-10-26] MEDS: METOCLOPRAMIDE 10 MG/2 ML INJ IV SCH ×4 (00:28→17:06)
[2021-10-26] MEDS: INSULIN LISPRO 100 UNIT/ML SUB-Q SCH ×4 (00:32→17:05)
[2021-10-26] MEDS: CISATRACURIUM 10 MG in SODIUM CHLORIDE 0.9% 95 ML IV SCH ×5 (03:45→20:54)
--- NOTE | 2021-10-26 04:25 | XRay Report ---
CHEST 1 VIEW 10/26/2021 2:56 AM INDICATION / CLINICAL INFORMATION: follow up respiratory failure. COMPARISON: One view of the chest from 10/25/2021 FINDINGS: SUPPORT DEVICES: Unchanged. HEART / MEDIASTINUM: Stable. LUNGS / PLEURA: Bilateral airspace opacities have slightly improved. No significant pleural effusion. No pneumothorax. ADDITIONAL FINDINGS: No significant additional findings. IMPRESSION: 1. Slightly improved aeration of the lungs without other significant interval changes. Signer Name: Evangelist Sharp MD Signed: 10/26/2021 4:20 AM Workstation Name: [id number]
[2021-10-26 05:13] LABS: Hematocrit 35.6 % (35.5-45.6); Hemoglobin 11.5 gm/dl (11.8-15.2); Mean Corpuscular HGB Conc 32 % (32-34); Mean Corpuscular Volume 80 fl (84-94); Platelet Count 394 K/mm3 (140-440); Red Blood Count 4.48 M/mm3 (3.65-5.03); Red Cell Distribution Width 15.3 % (13.2-15.2)
[2021-10-26 05:18] LABS: ABG Base Excess 0.5 mmol/L (-2.0-3.0); ABG HCO3 26.9 mmol/L (20.0-26.0); ABG Methemoglobin 0.5 % (0.0-1.5); ABG Oxygen Saturation 87.4 % (95.0-99.0); ABG PH 7.331 pH Units (7.350-7.450); ABG PO2 58.3 mm Hg (80.0-90.0)
[2021-10-26] MEDS: MIDAZOLAM 100 MG in SODIUM CHLORIDE 0.9% 80 ML IV SCH ×2 (05:19→17:09)
[2021-10-26 05:24] LABS: Calcium 7.5 mg/dL (8.4-10.2)
[2021-10-26] MEDS: methylPREDNISolone Sod Succinate 125 MG/2 ML INJ IV SCH ×3 (06:09→21:40)
--- NOTE | 2021-10-26 08:32 | Progress Note ---
Assessment and Plan Assessment: Nonliguric acute kidney injury secondary to ATN COVID 19 PNA Acute hypoxic/hypercapnic respiratory failure secondary to COVID 19 PNA vs PE Acute pulmonary embolus Respiratory acidosis w/ inadequate metabolic compensation Hyperkalemia Hyponatremia Plan: UOP improved - 3 liters yesterday; decline in SCr noted. Patient with evidence of renal recover. Hold HD today Reassess need HD tomorrow Vent management per pulmonary/critical care Anticoagulation per primary team Management of COVID 19 infection per ID Dose medications for renal function Avoid potential nephrotoxins Subjective Date of service: 10/26/21 Principal diagnosis: phan Interval history: Chart, vitals, labs reviewed. Objective - Exam Narrative Exam: To reduce transmission of disease, physical exam deferred in setting of COVID 19 pandemic - Vital Signs Vital signs: Vital Signs - 12hr 10/25/21 10/25/21 10/25/21 20:45 21:00 21:15 Pulse Rate 84 86 84 Pulse Rate [ From Monitor] Respiratory 20 25 H 26 H Rate Blood Pressure 150/81 150/81 152/86 O2 Sat by Pulse 96 98 98 Oximetry 10/25/21 10/25/21 10/25/21 21:30 21:37 21:45 Pulse Rate 83 84 82 Pulse Rate [ From Monitor] Respiratory 24 22 Rate Blood Pressure 160/84 160/84 144/84 O2 Sat by Pulse 97 98 97 Oximetry 10/25/21 10/25/21 10/25/21 22:00 22:15 22:30 Pulse Rate 81 80 81 Pulse Rate [ From Monitor] Respiratory 33 H 32 H 25 H Rate Blood Pressure 138/81 142/78 139/75 O2 Sat by Pulse 99 99 98 Oximetry 10/25/21 10/25/21 10/25/21 22:45 23:00 23:15 Pulse Rate 81 80 80 Pulse Rate [ From Monitor] Respiratory 32 H 30 H 28 H Rate Blood Pressure 140/76 134/75 141/73 O2 Sat by Pulse 98 98 99 Oximetry 10/25/21 10/25/21 10/26/21 23:30 23:45 00:00 Pulse Rate 80 79 78 Pulse Rate [ 85 From Monitor] Respiratory 27 H 30 H 31 H Rate Blood Pressure 142/76 143/79 149/78 O2 Sat by Pulse 99 98 98 Oximetry 10/26/21 10/26/21 10/26/21 00:02 00:15 00:20 Pulse Rate 78 78 78 Pulse Rate [ From Monitor] Respiratory 29 H 26 H Rate Blood Pressure 149/78 147/83 146/82 O2 Sat by Pulse 98 98 98 Oximetry 10/26/21 10/26/21 10/26/21 00:30 00:45 01:00 Pulse Rate 79 78 78 Pulse Rate [ From Monitor] Respiratory 30 H 30 H 30 H Rate Blood Pressure 139/75 146/81 144/79 O2 Sat by Pulse 98 99 98 Oximetry 10/26/21 10/26/21 10/26/21 01:15 01:30 01:45 Pulse Rate 78 78 77 Pulse Rate [ From Monitor] Respiratory 21 27 H 32 H Rate Blood Pressure 146/82 142/80 144/82 O2 Sat by Pulse 99 98 99 Oximetry 10/26/21 10/26/21 10/26/21 02:00 02:15 02:30 Pulse Rate 78 77 78 Pulse Rate [ From Monitor] Respiratory 24 27 H 32 H Rate Blood Pressure 141/80 145/81 147/81 O2 Sat by Pulse 99 99 100 Oximetry 10/26/21 10/26/21 10/26/21 02:45 03:00 03:16 Pulse Rate 78 79 78 Pulse Rate [ From Monitor] Respiratory 30 H 38 H 33 H Rate Blood Pressure 146/78 146/78 146/78 O2 Sat by Pulse 100 98 98 Oximetry 10/26/21 10/26/21 10/26/21 03:29 03:30 03:46 Pulse Rate 75 77 71 Pulse Rate [ From Monitor] Respiratory 21 51 H Rate Blood Pressure 135/62 128/71 123/60 O2 Sat by Pulse 99 99 89 Oximetry 10/26/21 10/26/21 10/26/21 04:00 04:15 04:30 Pulse Rate 81 78 79 Pulse Rate [ 85 From Monitor] Respiratory 23 16 31 H Rate Blood Pressure 121/70 127/74 131/69 O2 Sat by Pulse 93 95 97 Oximetry 10/26/21 10/26/21 10/26/21 04:45 05:00 05:15 Pulse Rate 80 81 81 Pulse Rate [ From Monitor] Respiratory 22 23 43 H Rate Blood Pressure 124/68 130/69 123/72 O2 Sat by Pulse 96 95 95 Oximetry 10/26/21 10/26/21 10/26/21 05:30 05:45 06:00 Pulse Rate 82 82 83 Pulse Rate [ From Monitor] Respiratory 28 H 41 H 35 H Rate Blood Pressure 123/73 126/69 120/74 O2 Sat by Pulse 95 96 95 Oximetry 10/26/21 10/26/21 10/26/21 06:15 06:30 06:45 Pulse Rate 82 81 81 Pulse Rate [ From Monitor] Respiratory 24 17 26 H Rate Blood Pressure 129/66 123/66 121/64 O2 Sat by Pulse 95 94 94 Oximetry 10/26/21 10/26/21 10/26/21 07:00 07:15 07:30 Pulse Rate 81 81 81 Pulse Rate [ From Monitor] Respiratory 25 H 25 H 36 H Rate Blood Pressure 121/64 126/69 129/69 O2 Sat by Pulse 93 94 94 Oximetry 10/26/21 10/26/21 07:45 08:00 Pulse Rate 80 80 Pulse Rate [ From Monitor] Respiratory 33 H 35 H Rate Blood Pressure 126/72 130/69 O2 Sat by Pulse 94 94 Oximetry - Lab 10/27/21 04:20 10/26/21 04:02 Most recent lab results ABG pH 7.331 pH Units (7.350-7.450) L 10/26/21 04:20 ABG pCO2 52.0 mm Hg 10/26/21 04:20 ABG pO2 58.3 mm Hg (80.0-90.0) L 10/26/21 04:20 ABG HCO3 26.9 mmol/L (20.0-26.0) H 10/26/21 04:20 ABG O2 Saturation 87.4 % (95.0-99.0) L 10/26/21 04:20 Calcium 7.5 mg/dL (8.4-10.2) L 10/26/21 04:02 Phosphorus 11.10 mg/dL (2.5-4.5) H 10/24/21 05:30 Magnesium 2.80 mg/dL (1.7-2.3) H 10/24/21 05:30 Urine Creatinine 153.1 mg/dL (0.1-20.0) H 10/21/21 Unknown Urine Sodium 31 mmol/L 10/21/21 Unknown Urine Total Protein 173 mg/dL (5-11.8) H 10/21/21 Unknown Medications & Allergies - Medications Allergies/Adverse Reactions: Allergies No Known Allergies Allergy (Unverified 10/18/21 16:14) Home Medications: Home Medications Medication Instructions Recorded Confirmed Last Taken Type metFORMIN [Glucophage] 500 mg PO BID 10/20/21 10/20/21 Unknown History Active Medications: Generic Name Dose Route Start Last Admin Trade Name Freq PRN Reason Stop Dose Admin Acetaminophen 650 mg 10/20/21 13:30 Acetaminophen 325 Mg/10.15 Ml Oral Liqd Unit Dose FEEDTUBE Q6H PRN Pain MILD(1-3)/Fever >100.5/HUSSEIN Al Hydrox/Mg Hydrox/Simethicone 30 ml 10/20/21 13:30 Alum-Mag Hydroxide-Simethicone [phone]/5ml Oral Liqd 30 Ml PO Q4H PRN Indigestion Lipase/Protease/Amylase 1 each 10/20/21 15:15 Lipase 10,500/Protease 25,000/Amylase 43,750 (Units) Dr Johnson FEEDTUBE PRN PRN For Clogged Feeding Tube Bisacodyl 10 mg 10/20/21 13:30 Bisacodyl 10 Mg Rect Supp [place] QDAY PRN constipation unrelieved by MOM Calcium Acetate 1,334 mg 10/23/21 08:00 10/25/21 19:58 Calcium Acetate 667 Mg Cap PO 1,334 mg TID ALBIN Administration Dextrose 50 ml 10/20/21 13:30 Dextrose 50% In Water (25gm) 50 Ml Syringe IV Q30MIN PRN Hypoglycemia Protocol Famotidine 10 mg 10/21/21 10:00 10/25/21 22:15 Famotidine 20 Mg/2 Ml Inj IV 10 mg BID ALBIN Administration Fentanyl 50 mcg 10/20/21 13:25 10/25/21 10:19 Fentanyl 100 Mcg/2 Ml Inj IV 50 mcg Q10MIN PRN Administration ANALGESIA Heparin Sodium (Porcine) 5,000 unit 10/20/21 10:41 10/21/21 17:19 Heparin 10,000 Units/10 Ml Vial IV 5,000 unit Q6H PRN Administration Anti-Xa Assay < 0.1 units/ml Hydrophilic Ointment 1 applic 10/20/21 13:25 Lip Therapy Vaseline TP Q2HR PRN Dry Lips Heparin Sodium/Sodium Chloride 25,000 unit in 500 mls @ 30 mls/hr 10/20/21 20:00 10/25/21 15:05 Heparin/ 0.45% Nacl-25,000 Unit/500 Ml IV 1,200 units/hr TITR ALBIN 24 mls/hr Administration Protocol 1,500 UNITS/HR Midazolam HCl 100 mg/ Sodium 100 mls @ 2 mls/hr 10/20/21 14:00 10/26/21 05:19 Chloride IV 8 mg/hr TITR ALBIN 8 mls/hr Administration Protocol 2 MG/HR Fentanyl Citrate 2,000 mcg in 100 mls @ 7.938 mls/hr 10/20/21 14:00 10/26/21 06:42 Fentanyl Drip Premix IV 4 mcg/kg/hr TITR ALBIN 31.751 mls/hr Administration Protocol 1 MCG/KG/HR Propofol 1,000 mg in 100 mls @ 4.763 mls/hr 10/20/21 14:00 10/26/21 06:01 Diprivan 10 Mg/Ml IV 50 mcg/kg/min TITR ALBIN 47.627 mls/hr Administration Protocol 5 MCG/KG/MIN Sodium Chloride 1,000 mls @ 1 mls/hr 10/20/21 14:30 Nacl 0.9% 500 Ml IV DIRECT PRN ARTERIAL LINE FLUSH Sodium Chloride 100 mls @ 999 mls/hr 10/22/21 11:48 Nacl 0.9% IV MAYLIN PRN Hypotension Dexmedetomidine HCl 400 mcg/ 104 mls @ 8.258 mls/hr 10/22/21 16:00 10/26/21 07:44 Sodium Chloride IV 0.7 mcg/kg/hr TITRATE ALBIN 28.902 mls/hr Administration Protocol 0.2 MCG/KG/HR NORepinephrine/NS 8 MG-250 ML 8 mg in 250 mls @ 3.75 mls/hr 10/22/21 18:00 10/23/21 08:20 Norepinephrine/Ns 8 Mg-250 Ml (Double Conc) IV 0 mcg/min TITRATE ALBIN 0 mls/hr Titration Protocol 2 MCG/MIN Cisatracurium Besylate 10 mg/ 100 mls @ 23.82 mls/hr 10/25/21 11:00 10/26/21 07:45 Sodium Chloride IV 10/27/21 10:59 0.25 mcg/kg/min TITR ALBIN 23.82 mls/hr Administration Protocol 0.25 MCG/KG/MIN Insulin Glargine 35 units 10/25/21 22:00 10/25/21 22:15 Insulin Glargine 100 Units/Ml SUB-Q 35 units QHS ALBIN Administration Insulin Human Lispro 0 unit 10/24/21 18:00 10/26/21 06:04 Insulin Lispro 100 Unit/Ml SUB-Q 4 unit Q6HR ALBIN Administration Protocol Methylprednisolone Sodium Succinate 60 mg 10/22/21 14:00 10/26/21 06:09 Methylprednisolone Sod Succinate 125 Mg/2 Ml Inj IV 60 mg Q8HR ALBIN Administration Metoclopramide HCl 5 mg 10/24/21 08:00 10/26/21 06:09 Metoclopramide 10 Mg/2 Ml Inj IV 5 mg Q6HR ALBIN Administration Midazolam HCl 2 mg 10/20/21 13:25 10/23/21 04:20 Midazolam 2 Mg/2 Ml Inj IV 2 mg Q10MIN PRN Administration Sedation Multi-Ingred Cream/Lotion/Oil/Oint 1 applic 10/20/21 13:25 Mineral Oil/Petrolatum, White Ophth Oint 3.5 Gm OU Q4HR PRN Dry Eye(s) Ondansetron HCl 4 mg 10/19/21 04:21 Ondansetron 4 Mg/2 Ml Inj IV Q8H PRN Nausea And Vomiting Promethazine HCl 25 mg 10/19/21 04:38 10/20/21 05:06 Promethazine 25 Mg Tab PO 25 mg Q6H PRN Administration Nausea And Vomiting Quetiapine Fumarate 100 mg 10/26/21 10:00 Quetiapine 25 Mg Tab PO BID ALBIN Senna 8.8 mg 10/20/21 22:00 10/25/21 22:15 Sennosides Oral Liqd 8.8 Mg/5 Ml Oral Liqd FEEDTUBE 8.8 mg BID ALBIN Administration Simple Syrup 15 ml 10/20/21 15:15 Simple Syrup 15 Ml FEEDTUBE PRN PRN Hypoglycemia Simple Syrup 30 ml 10/20/21 15:15 Simple Syrup 15 Ml FEEDTUBE PRN PRN Hypoglycemia Sodium Bicarbonate 325 mg 10/20/21 15:15 Sodium Bicarbonate 325 Mg Tab FEEDTUBE PRN PRN For Clogged Feeding Tube Sodium Chloride 10 ml 10/19/21 10:00 10/25/21 22:34 Sodium Chloride 0.9% 10 Ml Flush Syringe IV 10 ml BID ALBIN Administration Sodium Chloride 10 ml 10/19/21 04:26 Sodium Chloride 0.9% 10 Ml Flush Syringe IV PRN PRN flush prior to & after IV med
[2021-10-26] MEDS: CALCIUM ACETATE 667 MG CAP PO SCH ×3 (08:35→19:34)
[2021-10-26] MEDS: FAMOTIDINE 20 MG/2 ML INJ IV SCH ×2 (09:22→21:41)
[2021-10-26] MEDS: SENNOSIDES ORAL LIQD 8.8 MG/5 ML ORAL LIQD FEEDTUBE SCH ×2 (09:22→21:40)
[2021-10-26] MEDS: QUEtiapine 100 MG TAB PO SCH ×2 (09:23→21:40)
--- NOTE | 2021-10-26 11:36 | Progress Note ---
Assessment and Plan 26 y/o morbidly obese male admitted with acute respiratory failure secondary to COVID pneumonia 10/26/21: Continue heavy sedation and paralytic until tomorrow at 11. Monitor renal function. Attempt to wean vent when safe. PaO2 of 55 and sats of 88% are acceptable as the low ends of stable. Prognosis remains extremely guarded. 10/25/21: Will attempt to use paralytics today to help with ventilator synchrony. Can increase versed and restart precedex if need be. Discussed with CHEMICAL EQUIPMENT SALES ENGINEER and suggested antipsychotics as well which I agree with. Will obtain repeat CXR as well to eval for ptx. Very very guarded prognosis. 10/24/21: HD today. Continue current vent settings, if remains the same the next 24 hours, will try to wean FiO2. Will restart tube fees at 10 and reassess residuals tomorrow. Continue remdesivir, continue steroids. 10/23/21: Follow up renal recs. Per chart took off about 2 liters. CXR is the same, K remains elevated and BUN is 65. Acidemia is likely a combo of elevated CO2 and renal disease. Increased tidal volume but only by 25ml, as peak pressures are in the 40's. High risk for pneumothorax. Not a candidate for ecmo given obesity, he is age appropriate. Continue steroids. Continue Remd esivir. Overall prognosis is very very poor. 10/22/21: Hold on weaning today. Will ask renal for HD again today, and hopeful some volume removal. Hopeful echo can be read today. Maybe out of win alex for EKOS if evidence of right heart strain. CXR is worse. Will change steroids to solumedrol 60q8, may need long acting insulin. Feed patient. Very very guarded to poor prognosis. Will ask renal if they will dialyze again today. 10/21/21: Follow up echo. Unfortunately, requested initially to look for right heart strain and possible need for EKOS therapy however now in acute renal failu re and needing dialysis. CXR is stable but does look like ARDS. HD catheter placed and ready for dialysis. CHEMICAL EQUIPMENT SALES ENGINEER placing art line now. Continue IV steroids, Continue remdesivir. Now that patient is intubated, prognosis is extremely poor, especially with renal failure. Continue supportive care. May need bicarb later. 1. Continue HFNC with NRB. Will use precedex in an attempt to help with an xiety 2. Long discussion with patient and at bedside in regards to risk of intubation and prognosis associated with this. Both expressed understanding 3. IV steroids, will increase to BID 4. Remdesivir 5. Actemra 6. Guarded to poor prognosis. CCT 31 minutes. Subjective Date of service: 10/26/21 Principal diagnosis: phan Interval history: Still on 100% today and 18 of PEEP. No PTX. Urine output has picked up and Cr is decreasing. Renal has held HD today. Objective Vital Signs - 12hr 10/25/21 10/26/21 10/26/21 23:45 00:00 00:02 Pulse Rate 79 78 78 Pulse Rate [ 85 From Monitor] Respiratory 30 H 31 H 29 H Rate Blood Pressure 143/79 149/78 149/78 O2 Sat by Pulse 98 98 98 Oximetry 10/26/21 10/26/21 10/26/21 00:15 00:20 00:30 Pulse Rate 78 78 79 Pulse Rate [ From Monitor] Respiratory 26 H 30 H Rate Blood Pressure 147/83 146/82 139/75 O2 Sat by Pulse 98 98 98 Oximetry 10/26/21 10/26/21 10/26/21 00:45 01:00 01:15 Pulse Rate 78 78 78 Pulse Rate [ From Monitor] Respiratory 30 H 30 H 21 Rate Blood Pressure 146/81 144/79 146/82 O2 Sat by Pulse 99 98 99 Oximetry 10/26/21 10/26/21 10/26/21 01:30 01:45 02:00 Pulse Rate 78 77 78 Pulse Rate [ From Monitor] Respiratory 27 H 32 H 24 Rate Blood Pressure 142/80 144/82 141/80 O2 Sat by Pulse 98 99 99 Oximetry 10/26/21 10/26/21 10/26/21 02:15 02:30 02:45 Pulse Rate 77 78 78 Pulse Rate [ From Monitor] Respiratory 27 H 32 H 30 H Rate Blood Pressure 145/81 147/81 146/78 O2 Sat by Pulse 99 100 100 Oximetry 10/26/21 10/26/21 10/26/21 03:00 03:16 03:29 Pulse Rate 79 78 75 Pulse Rate [ From Monitor] Respiratory 38 H 33 H Rate Blood Pressure 146/78 146/78 135/62 O2 Sat by Pulse 98 98 99 Oximetry 10/26/21 10/26/21 10/26/21 03:30 03:46 04:00 Pulse Rate 77 71 81 Pulse Rate [ 85 From Monitor] Respiratory 21 51 H 23 Rate Blood Pressure 128/71 123/60 121/70 O2 Sat by Pulse 99 89 93 Oximetry 10/26/21 10/26/21 10/26/21 04:15 04:30 04:45 Pulse Rate 78 79 80 Pulse Rate [ From Monitor] Respiratory 16 31 H 22 Rate Blood Pressure 127/74 131/69 124/68 O2 Sat by Pulse 95 97 96 Oximetry 10/26/21 10/26/21 10/26/21 05:00 05:15 05:30 Pulse Rate 81 81 82 Pulse Rate [ From Monitor] Respiratory 23 43 H 28 H Rate Blood Pressure 130/69 123/72 123/73 O2 Sat by Pulse 95 95 95 Oximetry 10/26/21 10/26/21 10/26/21 05:45 06:00 06:15 Pulse Rate 82 83 82 Pulse Rate [ From Monitor] Respiratory 41 H 35 H 24 Rate Blood Pressure 126/69 120/74 129/66 O2 Sat by Pulse 96 95 95 Oximetry 10/26/21 10/26/21 10/26/21 06:30 06:45 07:00 Pulse Rate 81 81 81 Pulse Rate [ From Monitor] Respiratory 17 26 H 25 H Rate Blood Pressure 123/66 121/64 121/64 O2 Sat by Pulse 94 94 93 Oximetry 10/26/21 10/26/21 10/26/21 07:15 07:30 07:45 Pulse Rate 81 81 80 Pulse Rate [ From Monitor] Respiratory 25 H 36 H 33 H Rate Blood Pressure 126/69 129/69 126/72 O2 Sat by Pulse 94 94 94 Oximetry 10/26/21 10/26/21 10/26/21 08:00 08:15 08:30 Pulse Rate 80 81 78 Pulse Rate [ From Monitor] Respiratory 35 H 36 H 24 Rate Blood Pressure 130/69 132/70 131/71 O2 Sat by Pulse 94 95 94 Oximetry 10/26/21 10/26/21 10/26/21 08:45 09:00 09:15 Pulse Rate 82 81 80 Pulse Rate [ From Monitor] Respiratory 22 37 H 36 H Rate Blood Pressure 127/70 134/73 133/72 O2 Sat by Pulse 92 95 96 Oximetry 10/26/21 10/26/21 09:30 10:13 Pulse Rate 80 79 Pulse Rate [ From Monitor] Respiratory 40 H Rate Blood Pressure 135/70 140/63 O2 Sat by Pulse 95 94 Oximetry Constitutional: appears uncomfortable, other (morbidly obese) Eyes: non-icteric ENT: oropharynx moist Neck: supple, other (large in circumference) Effort: very labored Ascultation: Bilateral: diminished breath sounds Percussion: Bilateral: not dull Tactile fremitus: Bilateral: normal Cardiovascular: regular rate and rhythm Gastrointestinal: normoactive bowel sounds, soft Extremities: no edema Neurologic: normal mental status Psychiatric: anxious CBC and BMP: 10/26/21 04:02 10/26/21 04:02 ABG, PT/INR, D-dimer: ABG ABG pH 7.331 pH Units (7.350-7.450) L 10/26/21 04:20 POC ABG pCO2 69.9 mmHg (32.0-48.0) H 10/21/21 09:34 ABG pCO2 52.0 mm Hg 10/26/21 04:20 POC ABG pO2 65.6 mmHg (83-108) L 10/21/21 09:34 ABG pO2 58.3 mm Hg (80.0-90.0) L 10/26/21 04:20 POC ABG HCO3 24.5 10/21/21 09:34 ABG O2 Saturation 87.4 % (95.0-99.0) L 10/26/21 04:20 PT/INR, D-dimer PT 14.8 Sec. (12.2-14.9) 10/20/21 13:30 INR 1.05 (0.87-1.13) 10/20/21 13:30 D-Dimer 1019.09 ng/mlDDU (0-234) H 10/23/21 04:45 Abnormal lab findings: Abnormal Labs 10/18/21 10/18/21 10/19/21 16:39 16:39 08:24 Hgb MCV 79 L MCH 26 L MCHC RDW 15.4 H Lymph % (Auto) 7.7 L Lymph # (Auto) 0.6 L Seg Neutrophils % 86.4 H Seg Neutrophils # D-Dimer Heparin Anti-Xa Level ABG pH POC ABG pCO2 POC ABG pO2 ABG pO2 ABG HCO3 ABG O2 Saturation ABG Base Excess ABG Hemoglobin ABG Oxyhemoglobin ABG Sodium ABG Potassium ABG Glucose Oxyhemoglobin Carboxyhemoglobin Sodium 133 L Potassium Chloride 96.6 L Carbon Dioxide 19 L BUN Creatinine Glucose 183 H POC Glucose Hemoglobin A1c Calcium Phosphorus Magnesium Ferritin AST 72 H ALT 58 H Lactate Dehydrogenase Total Creatine Kinase 1484 H C-Reactive Protein Total Protein Albumin 3.6 L Triglycerides Arterial Blood Glucose Arterial Blood Ionized Calcium Urine Creatinine Urine Total Protein Coronavirus (PCR) Positive A 10/19/21 10/19/21 10/19/21 13:41 17:41 21:02 Hgb MCV MCH MCHC RDW Lymph % (Auto) Lymph # (Auto) Seg Neutrophils % Seg Neutrophils # D-Dimer Heparin Anti-Xa Level ABG pH POC ABG pCO2 POC ABG pO2 ABG pO2 ABG HCO3 ABG O2 Saturation ABG Base Excess ABG Hemoglobin ABG Oxyhemoglobin ABG Sodium ABG Potassium ABG Glucose Oxyhemoglobin Carboxyhemoglobin Sodium Potassium Chloride Carbon Dioxide BUN Creatinine Glucose POC Glucose 231 H 228 H 271 H Hemoglobin A1c Calcium Phosphorus Magnesium Ferritin AST ALT Lactate Dehydrogenase Total Creatine Kinase C-Reactive Protein Total Protein Albumin Triglycerides Arterial Blood Glucose Arterial Blood Ionized Calcium Urine Creatinine Urine Total Protein Coronavirus (PCR) 10/19/21 10/19/21 10/19/21 23:52 23:52 23:52 Hgb MCV 79 L MCH 25 L MCHC RDW 15.9 H Lymph % (Auto) 4.9 L Lymph # (Auto) 0.5 L Seg Neutrophils % 89.7 H Seg Neutrophils # 8.9 H D-Dimer Heparin Anti-Xa Level ABG pH POC ABG pCO2 POC ABG pO2 ABG pO2 ABG HCO3 ABG O2 Saturation ABG Base Excess ABG Hemoglobin ABG Oxyhemoglobin ABG Sodium ABG Potassium ABG Glucose Oxyhemoglobin Carboxyhemoglobin Sodium 133 L Potassium Chloride 95.0 L Carbon Dioxide 18 L BUN Creatinine Glucose 217 H POC Glucose Hemoglobin A1c 7.9 H Calcium Phosphorus Magnesium Ferritin AST 94 H ALT 76 H Lactate Dehydrogenase Total Creatine Kinase C-Reactive Protein Total Protein 8.4 H Albumin 3.6 L Triglycerides Arterial Blood Glucose Arterial Blood Ionized Calcium Urine Creatinine Urine Total Protein Coronavirus (PCR) 10/19/21 10/19/21 10/19/21 23:52 23:52 23:52 Hgb MCV MCH MCHC RDW Lymph % (Auto) Lymph # (Auto) Seg Neutrophils % Seg Neutrophils # D-Dimer Heparin Anti-Xa Level ABG pH POC ABG pCO2 POC ABG pO2 ABG pO2 ABG HCO3 ABG O2 Saturation ABG Base Excess ABG Hemoglobin ABG Oxyhemoglobin ABG Sodium ABG Potassium ABG Glucose Oxyhemoglobin Carboxyhemoglobin Sodium Potassium Chloride Carbon Dioxide BUN Creatinine Glucose POC Glucose Hemoglobin A1c Calcium Phosphorus Magnesium Ferritin 786.1 H AST ALT Lactate Dehydrogenase 625 H Total Creatine Kinase C-Reactive Protein 18.80 H Total Protein Albumin Triglycerides Arterial Blood Glucose Arterial Blood Ionized Calcium Urine Creatinine Urine Total Protein Coronavirus (PCR) 10/19/21 10/20/21 10/20/21 23:52 11:25 14:40 Hgb MCV MCH MCHC RDW Lymph % (Auto) Lymph # (Auto) Seg Neutrophils % Seg Neutrophils # D-Dimer Heparin Anti-Xa Level ABG pH 7.282 L POC ABG pCO2 53.7 H POC ABG pO2 57.3 L ABG pO2 ABG HCO3 ABG O2 Saturation ABG Base Excess ABG Hemoglobin ABG Oxyhemoglobin 83.6 L ABG Sodium 132.2 L ABG Potassium 5.5 H ABG Glucose 255 H Oxyhemoglobin Carboxyhemoglobin 0.3 L Sodium Potassium Chloride Carbon Dioxide BUN Creatinine Glucose POC Glucose 174 H Hemoglobin A1c Calcium Phosphorus Magnesium Ferritin AST ALT Lactate Dehydrogenase Total Creatine Kinase C-Reactive Protein 19.20 H Total Protein Albumin Triglycerides Arterial Blood Glucose 255 H Arterial Blood Ionized Calcium Urine Creatinine Urine Total Protein Coronavirus (PCR) 10/20/21 10/20/21 10/20/21 15:49 19:11 22:51 Hgb MCV MCH MCHC RDW Lymph % (Auto) Lymph # (Auto) Seg Neutrophils % Seg Neutrophils # D-Dimer Heparin Anti-Xa Level ABG pH POC ABG pCO2 POC ABG pO2 ABG pO2 ABG HCO3 ABG O2 Saturation ABG Base Excess ABG Hemoglobin ABG Oxyhemoglobin ABG Sodium ABG Potassium ABG Glucose Oxyhemoglobin Carboxyhemoglobin Sodium Potassium Chloride Carbon Dioxide BUN Creatinine Glucose POC Glucose 239 H 198 H 171 H Hemoglobin A1c Calcium Phosphorus Magnesium Ferritin AST ALT Lactate Dehydrogenase Total Creatine Kinase C-Reactive Protein Total Protein Albumin Triglycerides Arterial Blood Glucose Arterial Blood Ionized Calcium Urine Creatinine Urine Total Protein Coronavirus (PCR) 10/20/21 10/21/21 10/21/21 Unknown 02:16 02:16 Hgb MCV 83 L MCH 25 L MCHC 31 L RDW 16.4 H Lymph % (Auto) Lymph # (Auto) Seg Neutrophils % Seg Neutrophils # D-Dimer Heparin Anti-Xa Level ABG pH POC ABG pCO2 POC ABG pO2 ABG pO2 ABG HCO3 ABG O2 Saturation ABG Base Excess ABG Hemoglobin ABG Oxyhemoglobin ABG Sodium ABG Potassium ABG Glucose Oxyhemoglobin Carboxyhemoglobin Sodium 135 L Potassium Chloride 96.5 L Carbon Dioxide BUN Creatinine Glucose 191 H POC Glucose Hemoglobin A1c Calcium 8.3 L Phosphorus 10.40 H Magnesium 3.00 H Ferritin AST 107 H ALT 94 H Lactate Dehydrogenase 970 H Total Creatine Kinase C-Reactive Protein 21.10 H Total Protein Albumin 3.5 L Triglycerides Arterial Blood Glucose Arterial Blood Ionized Calcium Urine Creatinine Urine Total Protein Coronavirus (PCR) 10/21/21 10/21/21 10/21/21 02:16 02:16 03:30 Hgb MCV MCH MCHC RDW Lymph % (Auto) Lymph # (Auto) Seg Neutrophils % Seg Neutrophils # D-Dimer 579.49 H Heparin Anti-Xa Level 1.60 H ABG pH POC ABG pCO2 POC ABG pO2 ABG pO2 ABG HCO3 ABG O2 Saturation ABG Base Excess ABG Hemoglobin ABG Oxyhemoglobin ABG Sodium ABG Potassium ABG Glucose Oxyhemoglobin Carboxyhemoglobin Sodium 136 L Potassium 7.0 H* D Chloride Carbon Dioxide BUN 43 H Creatinine 2.3 H D Glucose 210 H POC Glucose Hemoglobin A1c Calcium 8.3 L Phosphorus Magnesium Ferritin 1550.0 H AST 206 H ALT 194 H Lactate Dehydrogenase Total Creatine Kinase C-Reactive Protein Total Protein Albumin 3.3 L Triglycerides Arterial Blood Glucose Arterial Blood Ionized Calcium Urine Creatinine Urine Total Protein Coronavirus (PCR) 10/21/21 10/21/21 10/21/21 04:40 04:51 09:15 Hgb MCV MCH MCHC RDW Lymph % (Auto) Lymph # (Auto) Seg Neutrophils % Seg Neutrophils # D-Dimer Heparin Anti-Xa Level ABG pH 7.184 L* POC ABG pCO2 POC ABG pO2 ABG pO2 60.2 L ABG HCO3 ABG O2 Saturation 86.6 L ABG Base Excess -4.3 L ABG Hemoglobin 12.1 L ABG Oxyhemoglobin ABG Sodium ABG Potassium ABG Glucose Oxyhemoglobin 85.2 L Carboxyhemoglobin Sodium Potassium Chloride Carbon Dioxide BUN Creatinine Glucose POC Glucose 204 H 177 H Hemoglobin A1c Calcium Phosphorus Magnesium Ferritin AST ALT Lactate Dehydrogenase Total Creatine Kinase C-Reactive Protein Total Protein Albumin Triglycerides Arterial Blood Glucose Arterial Blood Ionized Calcium Urine Creatinine Urine Total Protein Coronavirus (PCR) 10/21/21 10/21/21 10/21/21 09:34 10:53 11:27 Hgb MCV MCH MCHC RDW Lymph % (Auto) Lymph # (Auto) Seg Neutrophils % Seg Neutrophils # D-Dimer Heparin Anti-Xa Level ABG pH 7.162 L POC ABG pCO2 69.9 H POC ABG pO2 65.6 L ABG pO2 ABG HCO3 ABG O2 Saturation ABG Base Excess ABG Hemoglobin ABG Oxyhemoglobin 89.7 L ABG Sodium ABG Potassium 6.5 H ABG Glucose 190 H Oxyhemoglobin Carboxyhemoglobin 0.4 L Sodium Potassium Chloride Carbon Dioxide BUN Creatinine Glucose POC Glucose 183 H 184 H Hemoglobin A1c Calcium Phosphorus Magnesium Ferritin AST ALT Lactate Dehydrogenase Total Creatine Kinase C-Reactive Protein Total Protein Albumin Triglycerides Arterial Blood Glucose 190 H Arterial Blood Ionized Calcium 4.2 L Urine Creatinine Urine Total Protein Coronavirus (PCR) 10/21/21 10/21/21 10/21/21 12:00 12:39 16:20 Hgb MCV MCH MCHC RDW Lymph % (Auto) Lymph # (Auto) Seg Neutrophils % Seg Neutrophils # D-Dimer Heparin Anti-Xa Level ABG pH 7.183 L* POC ABG pCO2 POC ABG pO2 ABG pO2 ABG HCO3 26.2 H ABG O2 Saturation 94.6 L ABG Base Excess -3.6 L ABG Hemoglobin 13.1 L ABG Oxyhemoglobin ABG Sodium ABG Potassium ABG Glucose Oxyhemoglobin 93.0 L Carboxyhemoglobin Sodium Potassium 6.7 H* Chloride Carbon Dioxide BUN 54 H Creatinine 2.8 H Glucose 190 H POC Glucose 208 H Hemoglobin A1c Calcium 8.0 L Phosphorus Magnesium Ferritin AST ALT Lactate Dehydrogenase Total Creatine Kinase C-Reactive Protein Total Protein Albumin Triglycerides Arterial Blood Glucose Arterial Blood Ionized Calcium Urine Creatinine Urine Total Protein Coronavirus (PCR) 10/21/21 10/21/21 10/21/21 20:46 21:45 23:16 Hgb MCV MCH MCHC RDW Lymph % (Auto) Lymph # (Auto) Seg Neutrophils % Seg Neutrophils # D-Dimer Heparin Anti-Xa Level ABG pH 7.193 L* POC ABG pCO2 POC ABG pO2 ABG pO2 59.7 L ABG HCO3 27.0 H ABG O2 Saturation 88.0 L ABG Base Excess -2.2 L ABG Hemoglobin 11.1 L ABG Oxyhemoglobin ABG Sodium ABG Potassium ABG Glucose Oxyhemoglobin 86.5 L Carboxyhemoglobin Sodium Potassium Chloride Carbon Dioxide BUN Creatinine Glucose POC Glucose 192 H 204 H Hemoglobin A1c Calcium Phosphorus Magnesium Ferritin AST ALT Lactate Dehydrogenase Total Creatine Kinase C-Reactive Protein Total Protein Albumin Triglycerides Arterial Blood Glucose Arterial Blood Ionized Calcium Urine Creatinine Urine Total Protein Coronavirus (PCR) 10/21/21 10/21/21 10/21/21 Unknown Unknown Unknown Hgb MCV MCH MCHC RDW Lymph % (Auto) Lymph # (Auto) Seg Neutrophils % Seg Neutrophils # D-Dimer Heparin Anti-Xa Level 1.04 H 0.82 H ABG pH POC ABG pCO2 POC ABG pO2 ABG pO2 ABG HCO3 ABG O2 Saturation ABG Base Excess ABG Hemoglobin ABG Oxyhemoglobin ABG Sodium ABG Potassium ABG Glucose Oxyhemoglobin Carboxyhemoglobin Sodium Potassium Chloride Carbon Dioxide BUN Creatinine Glucose POC Glucose Hemoglobin A1c Calcium Phosphorus Magnesium Ferritin AST ALT Lactate Dehydrogenase Total Creatine Kinase C-Reactive Protein Total Protein Albumin Triglycerides Arterial Blood Glucose Arterial Blood Ionized Calcium Urine Creatinine 153.1 H Urine Total Protein 173 H Coronavirus (PCR) 10/22/21 10/22/21 10/22/21 02:50 02:50 02:50 Hgb 11.2 L MCV MCH MCHC RDW Lymph % (Auto) Lymph # (Auto) Seg Neutrophils % Seg Neutrophils # D-Dimer Heparin Anti-Xa Level ABG pH POC ABG pCO2 POC ABG pO2 ABG pO2 ABG HCO3 ABG O2 Saturation ABG Base Excess ABG Hemoglobin ABG Oxyhemoglobin ABG Sodium ABG Potassium ABG Glucose Oxyhemoglobin Carboxyhemoglobin Sodium Potassium 6.0 H Chloride 95.4 L Carbon Dioxide BUN 51 H Creatinine 3.2 H Glucose 227 H POC Glucose Hemoglobin A1c Calcium 7.7 L Phosphorus 9.30 H Magnesium 2.50 H Ferritin AST 239 H ALT 199 H Lactate Dehydrogenase Total Creatine Kinase C-Reactive Protein Total Protein Albumin 3.2 L Triglycerides 390 H Arterial Blood Glucose Arterial Blood Ionized Calcium Urine Creatinine Urine Total Protein Coronavirus (PCR) 10/22/21 10/22/21 10/22/21 04:42 11:34 18:30 Hgb MCV MCH MCHC RDW Lymph % (Auto) Lymph # (Auto) Seg Neutrophils % Seg Neutrophils # D-Dimer Heparin Anti-Xa Level ABG pH POC ABG pCO2 POC ABG pO2 ABG pO2 ABG HCO3 ABG O2 Saturation ABG Base Excess ABG Hemoglobin ABG Oxyhemoglobin ABG Sodium ABG Potassium ABG Glucose Oxyhemoglobin Carboxyhemoglobin Sodium Potassium Chloride Carbon Dioxide BUN Creatinine Glucose POC Glucose 227 H 256 H 201 H Hemoglobin A1c Calcium Phosphorus Magnesium Ferritin AST ALT Lactate Dehydrogenase Total Creatine Kinase C-Reactive Protein Total Protein Albumin Triglycerides Arterial Blood Glucose Arterial Blood Ionized Calcium Urine Creatinine Urine Total Protein Coronavirus (PCR) 10/22/21 10/23/21 10/23/21 23:29 04:45 04:45 Hgb MCV MCH MCHC RDW Lymph % (Auto) Lymph # (Auto) Seg Neutrophils % Seg Neutrophils # D-Dimer 1019.09 H Heparin Anti-Xa Level ABG pH POC ABG pCO2 POC ABG pO2 ABG pO2 ABG HCO3 ABG O2 Saturation ABG Base Excess ABG Hemoglobin ABG Oxyhemoglobin ABG Sodium ABG Potassium ABG Glucose Oxyhemoglobin Carboxyhemoglobin Sodium 129 L D Potassium 5.9 H Chloride 90.7 L Carbon Dioxide BUN 65 H Creatinine 4.4 H Glucose 329 H POC Glucose 269 H Hemoglobin A1c Calcium 8.2 L Phosphorus 9.60 H Magnesium 2.50 H Ferritin AST 181 H ALT 227 H Lactate Dehydrogenase 712 H Total Creatine Kinase C-Reactive Protein 6.40 H Total Protein Albumin 3.3 L Triglycerides Arterial Blood Glucose Arterial Blood Ionized Calcium Urine Creatinine Urine Total Protein Coronavirus (PCR) 10/23/21 10/23/21 10/23/21 04:45 05:38 08:59 Hgb 11.5 L MCV 81 L MCH 25 L MCHC 31 L RDW 15.3 H Lymph % (Auto) Lymph # (Auto) Seg Neutrophils % Seg Neutrophils # D-Dimer Heparin Anti-Xa Level ABG pH 7.167 L* POC ABG pCO2 POC ABG pO2 ABG pO2 66.1 L ABG HCO3 ABG O2 Saturation 89.9 L ABG Base Excess -4.5 L ABG Hemoglobin 13.3 L ABG Oxyhemoglobin ABG Sodium ABG Potassium ABG Glucose Oxyhemoglobin 88.4 L Carboxyhemoglobin Sodium Potassium Chloride Carbon Dioxide BUN Creatinine Glucose POC Glucose 313 H Hemoglobin A1c Calcium Phosphorus Magnesium Ferritin AST ALT Lactate Dehydrogenase Total Creatine Kinase C-Reactive Protein Total Protein Albumin Triglycerides Arterial Blood Glucose Arterial Blood Ionized Calcium Urine Creatinine Urine Total Protein Coronavirus (PCR) 10/23/21 10/23/21 10/24/21 12:05 22:54 05:09 Hgb MCV MCH MCHC RDW Lymph % (Auto) Lymph # (Auto) Seg Neutrophils % Seg Neutrophils # D-Dimer Heparin Anti-Xa Level ABG pH 7.161 L* POC ABG pCO2 POC ABG pO2 ABG pO2 71.5 L ABG HCO3 ABG O2 Saturation 91.8 L ABG Base Excess -4.7 L ABG Hemoglobin 11.6 L ABG Oxyhemoglobin ABG Sodium ABG Potassium ABG Glucose Oxyhemoglobin 90.4 L Carboxyhemoglobin Sodium Potassium Chloride Carbon Dioxide BUN Creatinine Glucose POC Glucose 333 H 326 H Hemoglobin A1c Calcium Phosphorus Magnesium Ferritin AST ALT Lactate Dehydrogenase Total Creatine Kinase C-Reactive Protein Total Protein Albumin Triglycerides Arterial Blood Glucose Arterial Blood Ionized Calcium Urine Creatinine Urine Total Protein Coronavirus (PCR) 10/24/21 10/24/21 10/24/21 05:30 05:30 05:30 Hgb 11.7 L MCV 80 L MCH 26 L MCHC RDW 15.5 H Lymph % (Auto) Lymph # (Auto) Seg Neutrophils % Seg Neutrophils # D-Dimer Heparin Anti-Xa Level ABG pH POC ABG pCO2 POC ABG pO2 ABG pO2 ABG HCO3 ABG O2 Saturation ABG Base Excess ABG Hemoglobin ABG Oxyhemoglobin ABG Sodium ABG Potassium ABG Glucose Oxyhemoglobin Carboxyhemoglobin Sodium 133 L Potassium 5.8 H Chloride 93.6 L Carbon Dioxide 19 L BUN 97 H Creatinine 5.7 H Glucose 307 H POC Glucose Hemoglobin A1c Calcium 7.4 L Phosphorus 11.10 H Magnesium 2.80 H Ferritin 1307.0 H AST 79 H ALT 171 H Lactate Dehydrogenase Total Creatine Kinase C-Reactive Protein Total Protein Albumin 3.2 L Triglycerides Arterial Blood Glucose Arterial Blood Ionized Calcium Urine Creatinine Urine Total Protein Coronavirus (PCR) 10/24/21 10/24/21 10/24/21 05:30 05:39 11:39 Hgb MCV MCH MCHC RDW Lymph % (Auto) Lymph # (Auto) Seg Neutrophils % Seg Neutrophils # D-Dimer Heparin Anti-Xa Level 0.13 L ABG pH POC ABG pCO2 POC ABG pO2 ABG pO2 ABG HCO3 ABG O2 Saturation ABG Base Excess ABG Hemoglobin ABG Oxyhemoglobin ABG Sodium ABG Potassium ABG Glucose Oxyhemoglobin Carboxyhemoglobin Sodium Potassium Chloride Carbon Dioxide BUN Creatinine Glucose POC Glucose 271 H 196 H Hemoglobin A1c Calcium Phosphorus Magnesium Ferritin AST ALT Lactate Dehydrogenase Total Creatine Kinase C-Reactive Protein Total Protein Albumin Triglycerides Arterial Blood Glucose Arterial Blood Ionized Calcium Urine Creatinine Urine Total Protein Coronavirus (PCR) 10/24/21 10/24/21 10/24/21 13:29 15:45 17:14 Hgb MCV MCH MCHC RDW Lymph % (Auto) Lymph # (Auto) Seg Neutrophils % Seg Neutrophils # D-Dimer Heparin Anti-Xa Level 0.21 L ABG pH POC ABG pCO2 POC ABG pO2 ABG pO2 ABG HCO3 ABG O2 Saturation ABG Base Excess ABG Hemoglobin ABG Oxyhemoglobin ABG Sodium ABG Potassium ABG Glucose Oxyhemoglobin Carboxyhemoglobin Sodium 135 L Potassium 5.1 H Chloride 94.1 L Carbon Dioxide BUN 67 H Creatinine 4.1 H Glucose 227 H POC Glucose 202 H Hemoglobin A1c Calcium 7.8 L Phosphorus Magnesium Ferritin AST ALT Lactate Dehydrogenase Total Creatine Kinase C-Reactive Protein Total Protein Albumin Triglycerides Arterial Blood Glucose Arterial Blood Ionized Calcium Urine Creatinine Urine Total Protein Coronavirus (PCR) 10/24/21 10/25/21 10/25/21 22:39 04:42 06:00 Hgb MCV MCH MCHC RDW Lymph % (Auto) Lymph # (Auto) Seg Neutrophils % Seg Neutrophils # D-Dimer Heparin Anti-Xa Level ABG pH POC ABG pCO2 POC ABG pO2 ABG pO2 ABG HCO3 ABG O2 Saturation ABG Base Excess ABG Hemoglobin ABG Oxyhemoglobin ABG Sodium ABG Potassium ABG Glucose Oxyhemoglobin Carboxyhemoglobin Sodium Potassium Chloride Carbon Dioxide BUN Creatinine Glucose POC Glucose 215 H 223 H Hemoglobin A1c Calcium Phosphorus Magnesium Ferritin AST ALT Lactate Dehydrogenase Total Creatine Kinase C-Reactive Protein Total Protein Albumin Triglycerides 492 H Arterial Blood Glucose Arterial Blood Ionized Calcium Urine Creatinine Urine Total Protein Coronavirus (PCR) 10/25/21 10/25/21 10/25/21 06:00 06:00 11:50 Hgb MCV 79 L MCH 25 L MCHC RDW 15.4 H Lymph % (Auto) Lymph # (Auto) Seg Neutrophils % Seg Neutrophils # D-Dimer Heparin Anti-Xa Level ABG pH POC ABG pCO2 POC ABG pO2 ABG pO2 ABG HCO3 ABG O2 Saturation ABG Base Excess ABG Hemoglobin ABG Oxyhemoglobin ABG Sodium ABG Potassium ABG Glucose Oxyhemoglobin Carboxyhemoglobin Sodium 136 L Potassium 5.2 H Chloride 95.9 L Carbon Dioxide BUN 85 H Creatinine 3.6 H Glucose 246 H POC Glucose 188 H Hemoglobin A1c Calcium 7.6 L Phosphorus Magnesium Ferritin AST ALT Lactate Dehydrogenase Total Creatine Kinase C-Reactive Protein Total Protein Albumin Triglycerides Arterial Blood Glucose Arterial Blood Ionized Calcium Urine Creatinine Urine Total Protein Coronavirus (PCR) 10/25/21 10/25/21 10/26/21 14:17 17:10 00:26 Hgb MCV MCH MCHC RDW Lymph % (Auto) Lymph # (Auto) Seg Neutrophils % Seg Neutrophils # D-Dimer Heparin Anti-Xa Level ABG pH 7.275 L POC ABG pCO2 POC ABG pO2 ABG pO2 78.7 L ABG HCO3 ABG O2 Saturation 94.7 L ABG Base Excess -2.3 L ABG Hemoglobin 12.7 L ABG Oxyhemoglobin ABG Sodium ABG Potassium ABG Glucose Oxyhemoglobin 93.0 L Carboxyhemoglobin Sodium Potassium Chloride Carbon Dioxide BUN Creatinine Glucose POC Glucose 190 H 219 H Hemoglobin A1c Calcium Phosphorus Magnesium Ferritin AST ALT Lactate Dehydrogenase Total Creatine Kinase C-Reactive Protein Total Protein Albumin Triglycerides Arterial Blood Glucose Arterial Blood Ionized Calcium Urine Creatinine Urine Total Protein Coronavirus (PCR) 10/26/21 10/26/21 10/26/21 04:02 04:02 04:02 Hgb 11.5 L MCV 80 L MCH 26 L MCHC RDW 15.3 H Lymph % (Auto) Lymph # (Auto) Seg Neutrophils % Seg Neutrophils # D-Dimer Heparin Anti-Xa Level ABG pH POC ABG pCO2 POC ABG pO2 ABG pO2 ABG HCO3 ABG O2 Saturation ABG Base Excess ABG Hemoglobin ABG Oxyhemoglobin ABG Sodium ABG Potassium ABG Glucose Oxyhemoglobin Carboxyhemoglobin Sodium Potassium Chloride Carbon Dioxide BUN 96 H Creatinine 2.6 H Glucose 246 H POC Glucose Hemoglobin A1c Calcium 7.5 L Phosphorus Magnesium Ferritin AST ALT Lactate Dehydrogenase Total Creatine Kinase C-Reactive Protein Total Protein Albumin Triglycerides 521 H Arterial Blood Glucose Arterial Blood Ionized Calcium Urine Creatinine Urine Total Protein Coronavirus (PCR) 10/26/21 04:20 Hgb MCV MCH MCHC RDW Lymph % (Auto) Lymph # (Auto) Seg Neutrophils % Seg Neutrophils # D-Dimer Heparin Anti-Xa Level ABG pH 7.331 L POC ABG pCO2 POC ABG pO2 ABG pO2 58.3 L ABG HCO3 26.9 H ABG O2 Saturation 87.4 L ABG Base Excess ABG Hemoglobin 9.4 L ABG Oxyhemoglobin ABG Sodium ABG Potassium ABG Glucose Oxyhemoglobin 85.6 L Carboxyhemoglobin Sodium Potassium Chloride Carbon Dioxide BUN Creatinine Glucose POC Glucose Hemoglobin A1c Calcium Phosphorus Magnesium Ferritin AST ALT Lactate Dehydrogenase Total Creatine Kinase C-Reactive Protein Total Protein Albumin Triglycerides Arterial Blood Glucose Arterial Blood Ionized Calcium Urine Creatinine Urine Total Protein Coronavirus (PCR)
[2021-10-26] MEDS: DOCUSATE SODIUM 100 MG/10 ML ORAL LIQD PO SCH ×2 (11:42→21:41)
--- NOTE | 2021-10-26 11:49 | Progress Note ---
<JOAN SERRANO - Last Filed: 10/26/21 16:02> Assessment and Plan Assessment and plan: This is a 26-year-old male with HTN, DM, asthma and gout admitted with COVID-19 pneumonia and pulmonary embolism. Hospital Course to Date: 10/19: Patient is currently anxious and restless with moderate respiratory distress. He is hypoxic and needing nasal cannula to and NRB alternately. BP and pulse stable. Patient has dry cough. Afebrile. No acute GI symptoms currently. 10/20: Patient was a code met from the floor to ICU. Patient was initially placed on BiPAP however due to his anxiety he was unable to tolerate and ultimately was intubated. Patient is currently sedated on fentanyl and Versed. Central line and Scott catheter placed today. Bilateral respirations in place. and mother updated at bedside today. 10/21: BUN/Cr increase noted and nephro consulted. Nephro will like to start HD. Femoral vascath placement delayed d/t elevated aPTT and renal US. CCM made changes to vent. Hyperkalemia medically treated. and mother updated at bedside by [employer]. Vascath and christi placed. HD RN aware 10/22: HD planned for today, steroids changed to Solu-Medrol 60 every 8 and long-acting insulin. Patient is stacking breaths and SPO2 in the upper 80s. We will add Precedex for increased sedation. Increasing FiO2 due to desaturation overnight. 10/23: Nephrology will medically treat potassium and HD tomorrow, increase in vent settings overnight due to hypoxia. Remains sedated on Precedex, fentanyl, Versed and propofol. Increase in Lantus today, tube feedings held due to high residuals, increase in total volume. and mother updated at bedside today. HD removed 3 L of fluid yesterday per HD nurse documentation. 10/24: Patient remains intubated and sedated, RASS -4. Remains hyperkalemic this am, HD at the bedside, K to be corrected, will repeat BMP in 4 to 6hrs. TF re julitea on hold due to high residual, no vomiting. IV reglan initiated, will do trickle feeds for now and reassess in the am. 10/25: Patient melody down into the 40s overnight, precedex gtt held. s/p X1 dose of IVP Robert this am for vent synchrony. Plan for possible nimbex gtt for 48hrs. Patient is still hyperkalemic this am, no intervention at this time per Nephro plan for HD tomorrow. Basal dose lantus was increased for tighter glycemic control. 10/26: Patient now on nimbex gtt fro vent synchrony, patient RR remains in the 30s, SPO2 at 97%. Patient also remains on sedation, seroquel was added to achieve RASS goal. Patient still with high gastric residual despite schedule reglan and BR, per nursing patient with no BM since admit, colace added. Renal function and hyperkalemia improved this am, no HD today per Nephro. Assessment and Plan #Neuro:Sedated #H/o Anxiety - Intubated and sedated - Currently sedated on propofol, fentanyl, Versed, and precedex gtts - s/p IV ROBERT pushes - Now on Nimbex gtt added for vent synchrony - Seroquel was also initiated - Close monitoring of QTc - Plan to possibly initiated nimbex gtt for vent synchrony - Bilateral soft restraints in place for safety - Avoid delirium - Maintain sleep-wake cycle #Cardio:Cardiomegaly #Bradycardia #h/o HTN -CTA chest showed mild cardiomegaly without evidence of right heart strain -10/25 HR dropped in the 40s overnight, probably related to precedex gtt vs Vagal response -Hold home antihypertensive regimen -Blood pressure monitoring per protocol -Christi david 10/21 -Echo shows Normal echocardiogram, LV EF within normal range of 50 to 55%, mild diastolic dysfunction evidenced by impaired relaxation pattern, no pericardial effusion -Vasopressor support with Levophed if needed -Goal MAP greater than 65 #Respiratory: Acute hypoxic respiratory failure 2/2 COVID vs PE #COVID PNA #Pulmonary embolism #h/o asthma -S/p BiPAP and OptiFlow/nonrebreather -CCM consulted, appreciate recommendations -Intubated on 10/20 with 8.00 ETT at 24 cm at the right lip -Vent Setting: A/C- 100%,16,18, 30/60 -This am ABG noted -Wean Fio2 as torerated -VAP bundle addressed -Aspiration precaution HOB above 30 -Daily SBT and SAT trials as tolerated -Daily ABG and CXR -Continue SPO2 monitoring for SPO2 goal above 92% #GI:Transaminitis #Hepatic steatosis #Morbid obesity -CTA chest showed hepatic steatosis -Nutrition consult for tube feeding -Reglan started -Continue Trickle feeds for now still with high gastric residual, 300cc overnight -No Bm since admit -BR: Senokot, Colace added -PPI -Acute hepatitis panel negative #:Acute renal injury most likely ATN #Hyperkalemia-improved #Rhabdomyolysis -Cr/BUN 0.8/20 and increased to 2.3/43 -10/21 prompting renal consult and initiation of dialysis -nephrology consulted, appreciate recommendations -renal US in progress -10/21 FeNa at 0.4 indicating prerenal -HD to be initiated 10/21 -HD per nephrology -K and renal function improved today -No HD today per Nephro -Strict intake and output with Scott catheter -Intervene with electrolytes as needed -Trend BMP -Kayexalate per renal #ID: COVID-19 pneumonia and influenza -CTA chest showed bilateral lung infiltrates concerning for atypical pneumonia -Infectious disease consulted, appreciate recommendations -Droplet/isolation precautions -IV dexamethasone for 10 days () -Twice daily dosing for morbid obesity -Steroids changed to methylprednisone 60 every 8 per [facility] -S/p Actemra 10/20/2021 -Tamiflu for 5 days () -Procal 0.49 -Antibiotic therapy: Azithromycin (), Rocephin (10/19 -10/23) -S/p IV remdesivir x1 on 10/20 -Trend COVID-19 inflammatory markers -Anticoagulation for pulmonary embolism #Endo: Hyperglycemia #h/o DM -Hemoglobin A1c 7.9 -Patient is on steroids -Continue SSI and Accu-Cheks every 6 -On Lantus Qhs, dose increased to 35units -Avoid hypoglycemia -While critically ill target blood glucose of 140-180 #Heme: Pulmonary embolism -CTA chest showed pulmonary embolus without evidence of right heart strain -Systemic anticoagulation with heparin drip -Bilateral lower extremity SCDs while in bed -Trend CBC -Transfuse for hemoglobin less than 7 The high probability of a clinically significant, sudden or life threatening deterioration of the [multi] system(s) required my full and direct attention, intervention and personal management. The aggregate critical care time was [60] minutes. This time is in addition to time spent performing reported procedures but includes the following: [x] Data Review and interpretation [x] Patient assessment and monitoring of vital signs [x] Documentation [x] Medication orders and management Disposition Plan: ICU Total Time Spent with Patient (Minutes): 60 History Interval history: Patient seen and examined at the bedside. Intubated and sedated, on propofol, versede, fentanyl, and precedex gtt. Patient is now on nimbex gtt, remains of heparin gtt. Patient also remains with high gastric residual, last check from this am was 300 cc Hospitalist Physical - Constitutional Vitals: Temp Pulse Resp BP Pulse Ox 98.3 F 79 40 H 140/63 94 10/25/21 20:00 10/26/21 10:13 10/26/21 09:30 10/26/21 10:13 10/26/21 10:13 General appearance: Present: mild distress, obese (Morbid obese with BMI 47), other (Intubated and sedated) - EENT Eyes: Present: PERRL - Respiratory Respiratory effort: accessory muscle use Respiratory: bilateral: rhonchi - Cardiovascular Rhythm: regular Heart Sounds: Present: S1 & S2 - Extremities Extremities: no ischemia, pulses intact, pulses symmetrical Extremity abnormal: edema - Peripheral Assessment Generalized Edema Type: Non-pitting Edema Degree: 2+ Capillary Refill: < 3 seconds Skin Temperature: Warm Peripheral Pulses: within normal limits - Abdominal General gastrointestinal: soft, non-tender, hypoactive bowel sounds - Integumentary Integumentary: Present: clear, warm, dry - Psychiatric Psychiatric: other (Intubated and sedated) - Neurologic Neurologic: other (Intubated and sedated) - Allied Health Allied health notes reviewed: nursing HEART Score - HEART Score EKG: Normal Age: < 45 Risk factors: 1-2 risk factors Troponin: Troponin T < 0.010 ng/mL (0.00-0.029) 10/18/21 16:39 Troponin: < normal limit - Critical Actions Critical Actions: 0-3 pts:0.9-1.7%risk of adverse cardiac event.Candidate for discharge Results - Labs CBC & Chem 7: 10/26/21 04:02 10/26/21 04:02 Labs: Laboratory Last Values WBC 8.6 K/mm3 (4.5-11.0) 10/26/21 04:02 RBC 4.48 M/mm3 (3.65-5.03) 10/26/21 04:02 Hgb 11.5 gm/dl (11.8-15.2) L 10/26/21 04:02 Hct 35.6 % (35.5-45.6) 10/26/21 04:02 MCV 80 fl (84-94) L 10/26/21 04:02 MCH 26 pg (28-32) L 10/26/21 04:02 MCHC 32 % (32-34) 10/26/21 04:02 RDW 15.3 % (13.2-15.2) H 10/26/21 04:02 Plt Count 394 K/mm3 (140-440) 10/26/21 04:02 Lymph % (Auto) 4.9 % (13.4-35.0) L 10/19/21 23:52 [place] % (Auto) 5.3 % (0.0-7.3) 10/19/21 23:52 Eos % (Auto) 0.0 % (0.0-4.3) 10/19/21 23:52 Baso % (Auto) 0.1 % (0.0-1.8) 10/19/21 23:52 Lymph # (Auto) 0.5 K/mm3 (1.2-5.4) L 10/19/21 23:52 [place] # (Auto) 0.5 K/mm3 (0.0-0.8) 10/19/21 23:52 Eos # (Auto) 0.0 K/mm3 (0.0-0.4) 10/19/21 23:52 Baso # (Auto) 0.0 K/mm3 (0.0-0.1) 10/19/21 23:52 Seg Neutrophils % 89.7 % (40.0-70.0) H 10/19/21 23:52 Seg Neutrophils # 8.9 K/mm3 (1.8-7.7) H 10/19/21 23:52 PT 14.8 Sec. (12.2-14.9) 10/20/21 13:30 INR 1.05 (0.87-1.13) 10/20/21 13:30 APTT 36.1 Sec. (24.2-36.6) 10/20/21 13:30 D-Dimer 1019.09 ng/mlDDU (0-234) H 10/23/21 04:45 Heparin Anti-Xa Level 0.37 U.I./ml (0.3-0.7) 10/26/21 04:02 ABG pH 7.331 pH Units (7.350-7.450) L 10/26/21 04:20 POC ABG pCO2 69.9 mmHg (32.0-48.0) H 10/21/21 09:34 ABG pCO2 52.0 mm Hg 10/26/21 04:20 POC ABG pO2 65.6 mmHg (83-108) L 10/21/21 09:34 ABG pO2 58.3 mm Hg (80.0-90.0) L 10/26/21 04:20 POC ABG HCO3 24.5 10/21/21 09:34 ABG HCO3 26.9 mmol/L (20.0-26.0) H 10/26/21 04:20 ABG O2 Saturation 87.4 % (95.0-99.0) L 10/26/21 04:20 ABG O2 Content 11.3 (0.0-44) 10/26/21 04:20 POC ABG Base Excess -5.4 10/21/21 09:34 ABG Base Excess 0.5 mmol/L (-2.0-3.0) 10/26/21 04:20 ABG Hemoglobin 9.4 gm/dl (14.0-18.0) L 10/26/21 04:20 ABG Oxyhemoglobin 89.7 (94-98) L 10/21/21 09:34 ABG Carboxyhemoglobin 1.6 % (0.0-5.0) 10/26/21 04:20 ABG Methemoglobin 0.5 % (0.0-1.5) 10/26/21 04:20 ABG Sodium 138.1 mmol/L (136.0-145.0) 10/21/21 09:34 ABG Potassium 6.5 mmol/L (3.40-4.50) H 10/21/21 09:34 ABG Chloride 102.0 mmol/L (98-107) 10/21/21 09:34 ABG Glucose 190 mg/dL (65-95) H 10/21/21 09:34 Oxyhemoglobin 85.6 % (95.0-99.0) L 10/26/21 04:20 Carboxyhemoglobin 0.4 (0.5-1.5) L 10/21/21 09:34 FiO2 100 % 10/26/21 04:20 FiO2 % 100.0 10/21/21 09:34 Sodium 138 mmol/L (137-145) 10/26/21 04:02 Potassium 5.0 mmol/L (3.6-5.0) 10/26/21 04:02 Chloride 99.6 mmol/L (98-107) 10/26/21 04:02 Carbon Dioxide 23 mmol/L (22-30) 10/26/21 04:02 Anion Gap 20 mmol/L 10/26/21 04:02 BUN 96 mg/dL (9-20) H 10/26/21 04:02 Creatinine 2.6 mg/dL (0.8-1.3) H 10/26/21 04:02 Estimated GFR 36 ml/min 10/26/21 04:02 BUN/Creatinine Ratio 37 % 10/26/21 04:02 Glucose 246 mg/dL (75-100) H 10/26/21 04:02 POC Glucose 219 mg/dL (70-105) H 10/26/21 00:26 Hemoglobin A1c 7.9 % (4-6) H 10/19/21 23:52 Lactic Acid 1.40 mmol/L (0.7-2.0) 10/18/21 16:39 Calcium 7.5 mg/dL (8.4-10.2) L 10/26/21 04:02 Phosphorus 11.10 mg/dL (2.5-4.5) H 10/24/21 05:30 Magnesium 2.80 mg/dL (1.7-2.3) H 10/24/21 05:30 Ferritin 1307.0 ng/mL (30.0-300.0) H 10/24/21 05:30 Total Bilirubin 0.20 mg/dL (0.1-1.2) 10/24/21 05:30 AST 79 units/L (5-40) H 10/24/21 05:30 ALT 171 units/L (7-56) H 10/24/21 05:30 Alkaline Phosphatase 73 units/L (35-129) 10/24/21 05:30 Lactate Dehydrogenase 712 units/L (91-180) H 10/23/21 04:45 Total Creatine Kinase 1484 units/L (55-170) H 10/18/21 16:39 CK-MB (CK-2) 3.3 ng/mL (0.0-4.0) 10/18/21 16:39 CK-MB (CK-2) Rel Index 0.2 (0-4) 10/18/21 16:39 Troponin T < 0.010 ng/mL (0.00-0.029) 10/18/21 16:39 C-Reactive Protein 6.40 mg/dL (0.00-1.30) H 10/23/21 04:45 Total Protein 6.9 g/dL (6.3-8.2) 10/24/21 05:30 Albumin 3.2 g/dL (3.9-5) L 10/24/21 05:30 Albumin/Globulin Ratio 0.9 % 10/24/21 05:30 Triglycerides 521 mg/dL (2-149) H 10/26/21 04:02 Lipase 15 units/L (13-60) 10/18/21 16:39 Procalcitonin 0.49 ng/mL (<0.15) 10/19/21 23:52 Arterial Blood Glucose 190 mg/dL (65-95) H 10/21/21 09:34 Arterial Blood Ionized Calcium 4.2 mg/dL (4.6-5.3) L 10/21/21 09:34 Urine Color Yellow (Yellow) 10/18/21 22:26 Urine Turbidity Clear (Clear) 10/18/21 22:26 Urine pH 6.0 (5.0-7.0) 10/18/21 22:26 Ur Specific [place] 1.025 (1.003-1.030) 10/18/21 22:26 Urine Protein 100 mg/dl mg/dL (Negative) 10/18/21 22:26 Urine Glucose (UA) Neg mg/dL (Negative) 10/18/21 22:26 Urine Ketones Neg mg/dL (Negative) 10/18/21 22:26 Urine Blood Sm (Negative) 10/18/21 22:26 Urine Nitrite Neg (Negative) 10/18/21 22:26 Urine Bilirubin Neg (Negative) 10/18/21 22:26 Urine Urobilinogen < 2.0 mg/dL (<2.0) 10/18/21 22:26 Ur Leukocyte Esterase Neg (Negative) 10/18/21 22:26 Urine WBC (Auto) < 1.0 /HPF (0.0-6.0) 10/18/21 22:26 Urine RBC (Auto) < 1.0 /HPF (0.0-6.0) 10/18/21 22:26 U Epithel Cells (Auto) < 1.0 /HPF (0-13.0) 10/18/21 22:26 Urine Bacteria (Auto) 1+ /HPF (Negative) 10/18/21 22:26 Urine Creatinine 153.1 mg/dL (0.1-20.0) H 10/21/21 Unknown Urine Sodium 31 mmol/L 10/21/21 Unknown Urine Total Protein 173 mg/dL (5-11.8) H 10/21/21 Unknown Coronavirus (PCR) Positive (Negative) A 10/19/21 08:24 Hepatitis A IgM Ab Non-reactive (NonReactive) 10/19/21 23:52 Hep Bs Antigen Nonreactive (Negative) 10/19/21 23:52 Hep B Core IgM Ab Non-reactive (NonReactive) 10/19/21 23:52 Hepatitis C Antibody Non-reactive (NonReactive) 10/19/21 23:52 Scott/IV: Voiding Method Indwelling Catheter Active Medications - Current Medications Current Medications: Generic Name Dose Route Start Last Admin Trade Name Freq PRN Reason Stop Dose Admin Acetaminophen 650 mg 10/20/21 13:30 Acetaminophen 325 Mg/10.15 Ml Oral Liqd Unit Dose FEEDTUBE Q6H PRN Pain MILD(1-3)/Fever >100.5/HUSSEIN Al Hydrox/Mg Hydrox/Simethicone 30 ml 10/20/21 13:30 Alum-Mag Hydroxide-Simethicone 014-378-49aq/5ml Oral Liqd 30 Ml PO Q4H PRN Indigestion Lipase/Protease/Amylase 1 each 10/20/21 15:15 Lipase 10,500/Protease 25,000/Amylase 43,750 (Units) Dr Johnson FEEDTUBE PRN PRN For Clogged Feeding Tube Bisacodyl 10 mg 10/20/21 13:30 Bisacodyl 10 Mg Rect Supp MT QDAY PRN constipation unrelieved by MOM Calcium Acetate 1,334 mg 10/23/21 08:00 10/26/21 08:35 Calcium Acetate 667 Mg Cap PO 1,334 mg TID ALBIN Administration Dextrose 50 ml 10/20/21 13:30 Dextrose 50% In Water (25gm) 50 Ml Syringe IV Q30MIN PRN Hypoglycemia Protocol Docusate Sodium 100 mg 10/26/21 11:00 Docusate Sodium 100 Mg/10 Ml Oral Liqd PO BID ALBIN Famotidine 10 mg 10/21/21 10:00 10/26/21 09:22 Famotidine 20 Mg/2 Ml Inj IV 10 mg BID ALBIN Administration Fentanyl 50 mcg 10/20/21 13:25 10/25/21 10:19 Fentanyl 100 Mcg/2 Ml Inj IV 50 mcg Q10MIN PRN Administration ANALGESIA Heparin Sodium (Porcine) 5,000 unit 10/20/21 10:41 10/21/21 17:19 Heparin 10,000 Units/10 Ml Vial IV 5,000 unit Q6H PRN Administration Anti-Xa Assay < 0.1 units/ml Hydrophilic Ointment 1 applic 10/20/21 13:25 Lip Therapy Vaseline TP Q2HR PRN Dry Lips Heparin Sodium/Sodium Chloride 25,000 unit in 500 mls @ 30 mls/hr 10/20/21 20:00 10/25/21 15:05 Heparin/ 0.45% Nacl-25,000 Unit/500 Ml IV 1,200 units/hr TITR ALBIN 24 mls/hr Administration Protocol 1,500 UNITS/HR Midazolam HCl 100 mg/ Sodium 100 mls @ 2 mls/hr 10/20/21 14:00 10/26/21 05:19 Chloride IV 8 mg/hr TITR ALBIN 8 mls/hr Administration Protocol 2 MG/HR Fentanyl Citrate 2,000 mcg in 100 mls @ 7.938 mls/hr 10/20/21 14:00 10/26/21 09:32 Fentanyl Drip Premix IV 4 mcg/kg/hr TITR ALBIN 31.751 mls/hr Administration Protocol 1 MCG/KG/HR Propofol 1,000 mg in 100 mls @ 4.763 mls/hr 10/20/21 14:00 10/26/21 08:20 Diprivan 10 Mg/Ml IV 50 mcg/kg/min TITR ALBIN 47.627 mls/hr Administration Protocol 5 MCG/KG/MIN Sodium Chloride 1,000 mls @ 1 mls/hr 10/20/21 14:30 Nacl 0.9% 500 Ml IV DIRECT PRN ARTERIAL LINE FLUSH Sodium Chloride 100 mls @ 999 mls/hr 10/22/21 11:48 Nacl 0.9% IV MAYLIN PRN Hypotension Dexmedetomidine HCl 400 mcg/ 104 mls @ 8.258 mls/hr 10/22/21 16:00 10/26/21 11:07 Sodium Chloride IV 0.7 mcg/kg/hr TITRATE ALBIN 28.902 mls/hr Administration Protocol 0.2 MCG/KG/HR NORepinephrine/NS 8 MG-250 ML 8 mg in 250 mls @ 3.75 mls/hr 10/22/21 18:00 10/23/21 08:20 Norepinephrine/Ns 8 Mg-250 Ml (Double Conc) IV 0 mcg/min TITRATE ALBIN 0 mls/hr Titration Protocol 2 MCG/MIN Cisatracurium Besylate 10 mg/ 100 mls @ 23.82 mls/hr 10/25/21 11:00 10/26/21 07:45 Sodium Chloride IV 10/27/21 10:59 0.25 mcg/kg/min TITR ALBIN 23.82 mls/hr Administration Protocol 0.25 MCG/KG/MIN Insulin Glargine 35 units 10/25/21 22:00 10/25/21 22:15 Insulin Glargine 100 Units/Ml SUB-Q 35 units QHS ALBIN Administration Insulin Human Lispro 0 unit 10/24/21 18:00 10/26/21 06:04 Insulin Lispro 100 Unit/Ml SUB-Q 4 unit Q6HR ALBIN Administration Protocol Methylprednisolone Sodium Succinate 60 mg 10/22/21 14:00 10/26/21 06:09 Methylprednisolone Sod Succinate 125 Mg/2 Ml Inj IV 60 mg Q8HR ALBIN Administration Metoclopramide HCl 5 mg 10/24/21 08:00 10/26/21 06:09 Metoclopramide 10 Mg/2 Ml Inj IV 5 mg Q6HR ALBIN Administration Midazolam HCl 2 mg 10/20/21 13:25 10/23/21 04:20 Midazolam 2 Mg/2 Ml Inj IV 2 mg Q10MIN PRN Administration Sedation Multi-Ingred Cream/Lotion/Oil/Oint 1 applic 10/20/21 13:25 Mineral Oil/Petrolatum, White Ophth Oint 3.5 Gm OU Q4HR PRN Dry Eye(s) Ondansetron HCl 4 mg 10/19/21 04:21 Ondansetron 4 Mg/2 Ml Inj IV Q8H PRN Nausea And Vomiting Promethazine HCl 25 mg 10/19/21 04:38 10/20/21 05:06 Promethazine 25 Mg Tab PO 25 mg Q6H PRN Administration Nausea And Vomiting Quetiapine Fumarate 100 mg 10/26/21 10:00 10/26/21 09:23 Quetiapine 100 Mg Tab PO 100 mg BID ALBIN Administration Senna 8.8 mg 10/20/21 22:00 10/26/21 09:22 Sennosides Oral Liqd 8.8 Mg/5 Ml Oral Liqd FEEDTUBE 8.8 mg BID ALBIN Administration Simple Syrup 15 ml 10/20/21 15:15 Simple Syrup 15 Ml FEEDTUBE PRN PRN Hypoglycemia Simple Syrup 30 ml 10/20/21 15:15 Simple Syrup 15 Ml FEEDTUBE PRN PRN Hypoglycemia Sodium Bicarbonate 325 mg 10/20/21 15:15 Sodium Bicarbonate 325 Mg Tab FEEDTUBE PRN PRN For Clogged Feeding Tube Sodium Chloride 10 ml 10/19/21 10:00 10/26/21 09:23 Sodium Chloride 0.9% 10 Ml Flush Syringe IV 10 ml BID ALBIN Administration Sodium Chloride 10 ml 10/19/21 04:26 Sodium Chloride 0.9% 10 Ml Flush Syringe IV PRN PRN flush prior to & after IV med Nutrition/Malnutrition Assess - Dietary Evaluation Nutrition/Malnutrition Findings: Nutrition Notes Start: 10/19/21 14:34 Freq: Status: Active Protocol: Document 10/24/21 14:55 REESE (Rec: 10/24/21 15:04 [email or web address] [id number]) Nutrition Notes Initial or Follow up Reassessment Current Diagnosis Diabetes,Hypertension, Respiratory Failure Other Pertinent Diagnosis COVID-19 pneu, hepatic steatosis, asthma, gout, pulmonary embolism Current Diet TF - Nepro at 53ml/hr Labs/Tests Na 133 BG 307 K 5.8 BUN 97 Cr 5.7 Phos 11.1 Mg 2.8 Pertinent Medications Phoslo, Solumedrol, Reglan ( ordered this am), Propofol at 38.102ml/hr (provides 1006 kcal) Height 6 ft Weight 158.8 kg [place] Body Weight (kg) 80.90 BMI 47.5 Weight Status Morbidly Obese Subjective/Other Information Pt with high gastric residuals (>500) since yesterday. TF had been on hold. Spoke with RN via phone at 14:53. MD ordered reglan and TF restart at 10ml/hr. Pt remains on vent support. (Propofol providing nearly 50% of energy needs) Burn Absent Trauma Absent Minimum of two criteria No #1 Nutrition Diagnosis Inadequate oral intake Diagnosis Progress(for reassessment Continues documentation) Is patient on ventilator? Yes Is Patient Ambulatory and/or Out of Bed No REE-([facility]-confined to bed) [phone] Calculation Used for Recommendations 70-80% energy needs Additional Notes Energy needs: 9377-0351 kcal/ day Pro needs 1.3g/kg adjBW: 156g/ day Fluid needs 1ml/kcal Nutrition Intervention Nutrition Support: Continue Nepro at 10ml/hr; increase rate as tolerated to goal of 53ml/hr. Kcal 432 Protein (gm) 19 Goal #1 TF tolerance Goal #2 Increase TF to goal rate to meet nutrient needs as best possible Follow-Up By: 10/27/21 Additional Comments F/U: TF tolerance, TF rate, vent status, renal function, propofol <MOHSEN HANDY R - Last Filed: 10/29/21 11:32> Assessment and Plan Assessment and plan: I saw and evaluated the patient 10/26/21. I agree with the findings and the plan of care as documented in the Nurse Practitioner's~note, patient is critically ill with very poor prognosis. Hospitalist Physical - Constitutional Vitals: Temp Pulse Resp BP Pulse Ox 101.1 F H 163 H 0 L 59/24 0 L 10/28/21 19:55 10/28/21 21:41 10/28/21 21:53 10/28/21 21:53 10/28/21 23:42 HEART Score - HEART Score Troponin: Troponin T < 0.010 ng/mL (0.00-0.029) 10/18/21 16:39 Results - Labs CBC & Chem 7: 10/28/21 07:09 10/28/21 07:09 Labs: Laboratory Last Values WBC 9.5 K/mm3 (4.5-11.0) 10/28/21 07:09 RBC 4.58 M/mm3 (3.65-5.03) 10/28/21 07:09 Hgb 11.5 gm/dl (11.8-15.2) L 10/28/21 07:09 Hct 36.7 % (35.5-45.6) 10/28/21 07:09 MCV 80 fl (84-94) L 10/28/21 07:09 MCH 25 pg (28-32) L 10/28/21 07:09 MCHC 31 % (32-34) L 10/28/21 07:09 RDW 16.3 % (13.2-15.2) H 10/28/21 07:09 Plt Count 357 K/mm3 (140-440) 10/28/21 07:09 Lymph % (Auto) 4.9 % (13.4-35.0) L 10/19/21 23:52 [place] % (Auto) 5.3 % (0.0-7.3) 10/19/21 23:52 Eos % (Auto) 0.0 % (0.0-4.3) 10/19/21 23:52 Baso % (Auto) 0.1 % (0.0-1.8) 10/19/21 23:52 Lymph # (Auto) 0.5 K/mm3 (1.2-5.4) L 10/19/21 23:52 [place] # (Auto) 0.5 K/mm3 (0.0-0.8) 10/19/21 23:52 Eos # (Auto) 0.0 K/mm3 (0.0-0.4) 10/19/21 23:52 Baso # (Auto) 0.0 K/mm3 (0.0-0.1) 10/19/21 23:52 Seg Neutrophils % 89.7 % (40.0-70.0) H 10/19/21 23:52 Seg Neutrophils # 8.9 K/mm3 (1.8-7.7) H 10/19/21 23:52 PT 14.8 Sec. (12.2-14.9) 10/20/21 13:30 INR 1.05 (0.87-1.13) 10/20/21 13:30 APTT 36.1 Sec. (24.2-36.6) 10/20/21 13:30 D-Dimer 1019.09 ng/mlDDU (0-234) H 10/23/21 04:45 Heparin Anti-Xa Level 0.35 U.I./ml (0.3-0.7) 10/28/21 07:09 ABG pH 7.281 pH Units (7.350-7.450) L 10/28/21 18:07 POC ABG pCO2 69.9 mmHg (32.0-48.0) H 10/21/21 09:34 ABG pCO2 57.6 mm Hg 10/28/21 18:07 POC ABG pO2 65.6 mmHg (83-108) L 10/21/21 09:34 ABG pO2 55.5 mm Hg (80.0-90.0) L 10/28/21 18:07 POC ABG HCO3 24.5 10/21/21 09:34 ABG HCO3 26.5 mmol/L (20.0-26.0) H 10/28/21 18:07 ABG O2 Saturation 82.7 % (95.0-99.0) L 10/28/21 18:07 ABG O2 Content 14.9 (0.0-44) 10/28/21 18:07 POC ABG Base Excess -5.4 10/21/21 09:34 ABG Base Excess -1.2 mmol/L (-2.0-3.0) 10/28/21 18:07 ABG Hemoglobin 13.1 gm/dl (14.0-18.0) L 10/28/21 18:07 ABG Oxyhemoglobin 89.7 (94-98) L 10/21/21 09:34 ABG Carboxyhemoglobin 1.6 % (0.0-5.0) 10/28/21 18:07 ABG Methemoglobin 0.7 % (0.0-1.5) 10/28/21 18:07 ABG Sodium 138.1 mmol/L (136.0-145.0) 10/21/21 09:34 ABG Potassium 6.5 mmol/L (3.40-4.50) H 10/21/21 09:34 ABG Chloride 102.0 mmol/L (98-107) 10/21/21 09:34 ABG Glucose 190 mg/dL (65-95) H 10/21/21 09:34 Oxyhemoglobin 80.8 % (95.0-99.0) L 10/28/21 18:07 Carboxyhemoglobin 0.4 (0.5-1.5) L 10/21/21 09:34 FiO2 100 % 10/28/21 18:07 FiO2 % 100.0 10/21/21 09:34 Sodium 156 mmol/L (137-145) H D 10/28/21 07:09 Potassium 5.5 mmol/L (3.6-5.0) H 10/28/21 07:09 Chloride 117.3 mmol/L (98-107) H 10/28/21 07:09 Carbon Dioxide 26 mmol/L (22-30) 10/28/21 07:09 Anion Gap 18 mmol/L 10/28/21 07:09 BUN 66 mg/dL (9-20) H 10/28/21 07:09 Creatinine 1.0 mg/dL (0.8-1.3) 10/28/21 07:09 Estimated GFR > 60 ml/min 10/28/21 07:09 BUN/Creatinine Ratio 66 % 10/28/21 07:09 Glucose 145 mg/dL (75-100) H 10/28/21 07:09 POC Glucose 375 mg/dL (70-105) H 10/28/21 21:29 Hemoglobin A1c 7.9 % (4-6) H 10/19/21 23:52 Lactic Acid 1.40 mmol/L (0.7-2.0) 10/18/21 16:39 Calcium 8.8 mg/dL (8.4-10.2) 10/28/21 07:09 Phosphorus 11.10 mg/dL (2.5-4.5) H 10/24/21 05:30 Magnesium 2.80 mg/dL (1.7-2.3) H 10/24/21 05:30 Ferritin 1307.0 ng/mL (30.0-300.0) H 10/24/21 05:30 Total Bilirubin 0.20 mg/dL (0.1-1.2) 10/24/21 05:30 AST 79 units/L (5-40) H 10/24/21 05:30 ALT 171 units/L (7-56) H 10/24/21 05:30 Alkaline Phosphatase 73 units/L (35-129) 10/24/21 05:30 Lactate Dehydrogenase 712 units/L (91-180) H 10/23/21 04:45 Total Creatine Kinase 1484 units/L (55-170) H 10/18/21 16:39 CK-MB (CK-2) 3.3 ng/mL (0.0-4.0) 10/18/21 16:39 CK-MB (CK-2) Rel Index 0.2 (0-4) 10/18/21 16:39 Troponin T < 0.010 ng/mL (0.00-0.029) 10/18/21 16:39 C-Reactive Protein 6.40 mg/dL (0.00-1.30) H 10/23/21 04:45 Total Protein 6.9 g/dL (6.3-8.2) 10/24/21 05:30 Albumin 3.2 g/dL (3.9-5) L 10/24/21 05:30 Albumin/Globulin Ratio 0.9 % 10/24/21 05:30 Triglycerides 392 mg/dL (2-149) H 10/27/21 04:20 Lipase 15 units/L (13-60) 10/18/21 16:39 Procalcitonin 0.49 ng/mL (<0.15) 10/19/21 23:52 Arterial Blood Glucose 190 mg/dL (65-95) H 10/21/21 09:34 Arterial Blood Ionized Calcium 4.2 mg/dL (4.6-5.3) L 10/21/21 09:34 Urine Color Yellow (Yellow) 10/28/21 10:10 Urine Turbidity Cloudy (Clear) 10/28/21 10:10 Urine pH 5.0 (5.0-7.0) 10/28/21 10:10 Ur Specific [place] 1.015 (1.003-1.030) 10/28/21 10:10 Urine Protein <15 mg/dl mg/dL (Negative) 10/28/21 10:10 Urine Glucose (UA) Neg mg/dL (Negative) 10/28/21 10:10 Urine Ketones Neg mg/dL (Negative) 10/28/21 10:10 Urine Blood Mod (Negative) 10/28/21 10:10 Urine Nitrite Neg (Negative) 10/28/21 10:10 Urine Bilirubin Neg (Negative) 10/28/21 10:10 Urine Urobilinogen < 2.0 mg/dL (<2.0) 10/28/21 10:10 Ur Leukocyte Esterase Neg (Negative) 10/28/21 10:10 Urine WBC (Auto) 3.0 /HPF (0.0-6.0) 10/28/21 10:10 Urine RBC (Auto) 71.0 /HPF (0.0-6.0) 10/28/21 10:10 U Epithel Cells (Auto) < 1.0 /HPF (0-13.0) 10/28/21 10:10 Urine Bacteria (Auto) 1+ /HPF (Negative) 10/18/21 22:26 Urine Yeast (Budding) 1+ /HPF 10/28/21 10:10 Urine Creatinine 153.1 mg/dL (0.1-20.0) H 10/21/21 Unknown Urine Sodium 31 mmol/L 10/21/21 Unknown Urine Total Protein 173 mg/dL (5-11.8) H 10/21/21 Unknown Coronavirus (PCR) Positive (Negative) A 10/19/21 08:24 Hepatitis A IgM Ab Non-reactive (NonReactive) 10/19/21 23:52 Hep Bs Antigen Nonreactive (Negative) 10/19/21 23:52 Hep B Core IgM Ab Non-reactive (NonReactive) 10/19/21 23:52 Hepatitis C Antibody Non-reactive (NonReactive) 10/19/21 23:52 Microbiology: Microbiology 10/28/21 12:32 Tracheal Aspirate Sputum Culture - Preliminary 10/28/21 09:45 Peripheral/Venous Blood Culture - Preliminary Culture in Progress 10/28/21 09:11 Peripheral/Venous Blood Culture - Preliminary Culture in Progress Scott/IV: Voiding Method Indwelling Catheter Nutrition/Malnutrition Assess - Dietary Evaluation Nutrition/Malnutrition Findings: Nutrition Notes Start: 10/19/21 14:34 Freq: Status: Discharge Protocol: Document 10/27/21 10:14 NHALL (Rec: 10/27/21 10:20 [facility] [id number]) Nutrition Notes Initial or Follow up Reassessment Current Diagnosis Diabetes,Hypertension, Respiratory Failure Other Pertinent Diagnosis COVID-19 pneu, hepatic steatosis, asthma, gout, pulmonary embolism Current Diet TF - Nepro at 53ml/hr Labs/Tests Na 146 BUN 102 Cr 1.8 BG 207 Pertinent Medications Colace (RN reports no BM since admission), Propofol at 47. 627 ml/hr (provides 1257 kcal) , Cisatracurium besylate gtt Height 6 ft Weight 158.8 kg [place] Body Weight (kg) 80.90 BMI 47.5 Weight Status Morbidly Obese Subjective/Other Information Gastric residuals remain > 300ml; TF continues at 10ml/hr . Pt remains on vent support; has not been tolerating vent. HD needs assessed on daily basis. Percent of energy/protein needs met: 77% energy 12% pro (includes kcal from propofol) Burn Absent Trauma Absent Minimum of two criteria No #1 Nutrition Diagnosis Inadequate oral intake Diagnosis Progress(for reassessment Continues documentation) Is patient on ventilator? Yes Is Patient Ambulatory and/or Out of Bed No REE-([place]-confined to bed) [phone] Calculation Used for Recommendations 70-80% energy needs Additional Notes Energy needs: 9986-3770 kcal/ day Pro needs 1.3g/kg adjBW: 156g/ day Fluid needs 1ml/kcal Nutrition Intervention Nutrition Support: Continue Nepro at 10ml/hr; increase rate as tolerated to goal of 53ml/hr. Kcal 432 Protein (gm) 19 Goal #1 TF tolerance Goal #2 Increase TF to goal rate to meet nutrient needs as best possible Follow-Up By: 10/31/21 Additional Comments F/U: TF tolerance/rate increase, vent status, propofol, renal function
--- NOTE | 2021-10-26 12:31 | Progress Note ---
Assessment and Plan Cultures: SARS CoV2 PCR: positive 10/18/2021 blood culture: no growth 10/20/2021 sputum culture: Usual respiratory james A/P: 26-year-old male with hypertension, diabetes, gout admitted with cough and shortness of breath going on for 3 days. He tested positive for COVID-19 and influenza as an outpatient: #Bilateral pneumonia: Suspected secondary to COVID-19 and influenza. Completed Tamiflu. Received a few days of Remdesivir, then discontinued due to worsening of renal function. On steroids, status post Actemra on 10/20/2021. #Acute hypoxic respiratory failure: failed NRB / HFNC, on vent. #Acute pulmonary embolism: On anticoagulation #Acute renal failure requiring HD. Nephrology following. #Morbid obesity #Transaminitis: Likely related to viral illness #Elevated CPK Recs: -continue steroids per pulmonary, for 10 days, benefit beyond that is unclear, patient has received Actemra as well -s/p Actemra 10/20/2021 -on anticoagulation for PE -completed empiric abx course, tamiflu -poor prognosis ID will sign off. Please call with questions / re-consult if needed. Maggi Aponte MD, FACP, [facility] ([facility] O: [phone] F: [phone] Subjective Date of service: 10/26/21 Principal diagnosis: phan Interval history: No fever. Remains on the vent, 100% FiO2, 16 of PEEP. Sedated, paralyzed Objective - Exam Narrative Exam: Physical Exam (reviewed in chart to minimize risk of transmission) Constitutional: deferred Head, Ears, Nose: deferred Eyes: deferred Neck: deferred Oral: deferred Cardiovascular: deferred Respiratory: deferred GI: deferred Musculoskeletal: deferred Skin: deferred Hem/Lymphatic: deferred Psych: deferred Neurological: deferred - Constitutional Vitals: Vital Signs Temp Pulse Resp BP Pulse Ox 98.3 F 79 40 H 140/63 94 10/25/21 20:00 10/26/21 10:13 10/26/21 09:30 10/26/21 10:13 10/26/21 10:13 Temperature -Last 24 Hours Temperature 98.3 F Temperature 98.1 F Temperature 98.2 F - Labs CBC & Chem 7: 10/26/21 04:02 10/26/21 04:02 Labs: Abnormal lab results 10/25/21 10/25/21 10/26/21 Range/Units 14:17 17:10 00:26 Hgb (11.8-15.2) gm/dl MCV (84-94) fl MCH (28-32) pg RDW (13.2-15.2) % ABG pH 7.275 L (7.350-7.450) pH Units ABG pO2 78.7 L (80.0-90.0) mm Hg ABG HCO3 (20.0-26.0) mmol/L ABG O2 Saturation 94.7 L (95.0-99.0) % ABG Base Excess -2.3 L (-2.0-3.0) mmol/L ABG Hemoglobin 12.7 L (14.0-18.0) gm/dl Oxyhemoglobin 93.0 L (95.0-99.0) % BUN (9-20) mg/dL Creatinine (0.8-1.3) mg/dL Glucose (75-100) mg/dL POC Glucose 190 H 219 H (70-105) mg/dL Calcium (8.4-10.2) mg/dL Triglycerides (2-149) mg/dL 10/26/21 10/26/21 10/26/21 Range/Units 04:02 04:02 04:02 Hgb 11.5 L (11.8-15.2) gm/dl MCV 80 L (84-94) fl MCH 26 L (28-32) pg RDW 15.3 H (13.2-15.2) % ABG pH (7.350-7.450) pH Units ABG pO2 (80.0-90.0) mm Hg ABG HCO3 (20.0-26.0) mmol/L ABG O2 Saturation (95.0-99.0) % ABG Base Excess (-2.0-3.0) mmol/L ABG Hemoglobin (14.0-18.0) gm/dl Oxyhemoglobin (95.0-99.0) % BUN 96 H (9-20) mg/dL Creatinine 2.6 H (0.8-1.3) mg/dL Glucose 246 H (75-100) mg/dL POC Glucose (70-105) mg/dL Calcium 7.5 L (8.4-10.2) mg/dL Triglycerides 521 H (2-149) mg/dL 10/26/21 10/26/21 Range/Units 04:20 11:56 Hgb (11.8-15.2) gm/dl MCV (84-94) fl MCH (28-32) pg RDW (13.2-15.2) % ABG pH 7.331 L (7.350-7.450) pH Units ABG pO2 58.3 L (80.0-90.0) mm Hg ABG HCO3 26.9 H (20.0-26.0) mmol/L ABG O2 Saturation 87.4 L (95.0-99.0) % ABG Base Excess (-2.0-3.0) mmol/L ABG Hemoglobin 9.4 L (14.0-18.0) gm/dl Oxyhemoglobin 85.6 L (95.0-99.0) % BUN (9-20) mg/dL Creatinine (0.8-1.3) mg/dL Glucose (75-100) mg/dL POC Glucose 178 H (70-105) mg/dL Calcium (8.4-10.2) mg/dL Triglycerides (2-149) mg/dL
[2021-10-26] MEDS: MIDAZOLAM 2 MG/2 ML INJ IV PRN ×3 (12:43→17:05)
[2021-10-26] MEDS: HEPARIN/ 0.45% NACL DRIP 25,000 UNIT/500 ML BAG IV SCH (13:11)
[2021-10-26] MEDS: INSULIN GLARGINE 100 UNITS/ML SUB-Q SCH (21:41)
[2021-10-27] MEDS: METOCLOPRAMIDE 10 MG/2 ML INJ IV SCH ×4 (00:25→18:14)
[2021-10-27] MEDS: INSULIN LISPRO 100 UNIT/ML SUB-Q SCH ×4 (00:25→18:13)
[2021-10-27] MEDS: fentaNYL DRIP Premix 2,000 MCG/100 ML BAG IV SCH ×8 (00:43→21:23)
[2021-10-27] MEDS: CISATRACURIUM 10 MG in SODIUM CHLORIDE 0.9% 95 ML IV SCH ×4 (01:22→22:34)
--- NOTE | 2021-10-27 01:42 | XRay Report ---
CHEST 1 VIEW 10/27/2021 12:04 AM INDICATION / CLINICAL INFORMATION: follow up respiratory failure. COMPARISON: One view of the chest from 10/26/2021. FINDINGS: SUPPORT DEVICES: Unchanged. HEART / MEDIASTINUM: Stable. LUNGS / PLEURA: Bilateral airspace opacities have worsened. No large pleural effusion. No pneumothor ax. ADDITIONAL FINDINGS: No significant additional findings. IMPRESSION: Interval worsening of bilateral airspace opacities without other significant interval changes. Signer Name: Evangelist Sharp MD Signed: 10/27/2021 1:38 AM Workstation Name: [id number]
[2021-10-27] MEDS: ACETAMINOPHEN 325 MG/10.15 ML ORAL LIQD UNIT DOSE FEEDTUBE PRN (04:02)
[2021-10-27 04:58] LABS: ABG Base Excess 1.9 mmol/L (-2.0-3.0); ABG HCO3 26.6 mmol/L (20.0-26.0); ABG Methemoglobin 0.5 % (0.0-1.5); ABG Oxygen Saturation 91.3 % (95.0-99.0); ABG PCO2 42.1 mm Hg; ABG PH 7.419 pH Units (7.350-7.450); ABG PO2 61.3 mm Hg (80.0-90.0)
[2021-10-27] MEDS: MIDAZOLAM 100 MG in SODIUM CHLORIDE 0.9% 80 ML IV SCH ×3 (04:58→17:21)
[2021-10-27 05:25] LABS: Hematocrit 35.2 % (35.5-45.6); Hemoglobin 11.2 gm/dl (11.8-15.2); Mean Corpuscular HGB Conc 32 % (32-34); Mean Corpuscular Volume 79 fl (84-94); Platelet Count 394 K/mm3 (140-440); Red Blood Count 4.48 M/mm3 (3.65-5.03)
[2021-10-27 05:39] LABS: Calcium 7.9 mg/dL (8.4-10.2)
[2021-10-27] MEDS: methylPREDNISolone Sod Succinate 125 MG/2 ML INJ IV SCH ×3 (05:54→21:12)
[2021-10-27] MEDS: HEPARIN/ 0.45% NACL DRIP 25,000 UNIT/500 ML BAG IV SCH (05:55)
[2021-10-27] MEDS ORDERED: FREE WATER PO SCH (09:00)
--- NOTE | 2021-10-27 10:13 | Progress Note ---
Assessment and Plan 26 y/o morbidly obese male admitted with acute respiratory failure secondary to COVID pneumonia 10/27/21: Continue current level of sedation with paralytic therapy. Ends today. renal function improving. Will ask renal how they feel about the possibility of diuresis. Will continue current vent settings but can consider weaning FiO2. Maybe to 90-95%. Prognosis still remains very guarded. 10/26/21: Continue heavy sedation and paralytic until tomorrow at 11. Monitor renal function. Attempt to wean vent when safe. PaO2 of 55 and sats of 88% are acceptable as the low ends of stable. Prognosis remains extremely guarded. 10/25/21: Will attempt to use paralytics today to help with ventilator synchrony. Can increase versed and restart precedex if need be. Discussed with [employer] and suggested antipsychotics as well which I agree with. Will obtain repeat CXR as well to eval for ptx. Very very guarded prognosis. 10/24/21: HD today. Continue current vent settings, if remains the same the next 24 hours, will try to wean FiO2. Will restart tube fees at 10 and reassess residuals tomorrow. Continue remdesivir, continue steroids. 10/23/21: Follow up renal recs. Per chart took off about 2 liters. CXR is the same, K remains elevated and BUN is 65. Acidemia is likely a combo of elevated CO2 and renal disease. Increased tidal volume but only by 25ml, as peak pressures are in the 40's. High risk for pneumothorax. Not a candidate for ecmo given obesity, he is age appropriate. Continue steroids. Continue Re mdesivir. Overall prognosis is very very poor. 10/22/21: Hold on weaning today. Will ask renal for HD again today, and hopeful some volume removal. Hopeful echo can be read today. Maybe out of w indow for EKOS if evidence of right heart strain. CXR is worse. Will change steroids to solumedrol 60q8, may need long acting insulin. Feed patient. Very very guarded to poor prognosis. Will ask renal if they will dialyze again today. 10/21/21: Follow up echo. Unfortunately, requested initially to look for right heart strain and possible need for EKOS therapy however now in acute renal ava lure and needing dialysis. CXR is stable but does look like ARDS. HD catheter placed and ready for dialysis. [employer]HER placing art line now. Continue IV steroids, Continue remdesivir. Now that patient is intubated, prognosis is extremely poor, especially with renal failure. Continue supportive care. May need bicarb later. 1. Continue HFNC with NRB. Will use precedex in an attempt to help with anxiety 2. Long discussion with patient and at bedside in regards to risk of intubation and prognosis associated with this. Both expressed understanding 3. IV steroids, will increase to BID 4. Remdesivir 5. Actemra 6. Guarded to poor prognosis. CCT 31 minutes. Subjective Date of service: 10/27/21 Principal diagnosis: phan Interval history: no acute events. PaO2 is slightly better this am on 100%. (61). REnal function continues to improve Objective Vital Signs - 12hr 10/26/21 10/26/21 10/26/21 22:15 22:30 22:45 Temperature Pulse Rate 86 86 86 Pulse Rate [ From Monitor] Respiratory 37 H 36 H 36 H Rate Blood Pressure 135/65 134/69 137/70 O2 Sat by Pulse 94 94 94 Oximetry 10/26/21 10/26/21 10/26/21 23:00 23:10 23:15 Temperature Pulse Rate 85 86 85 Pulse Rate [ From Monitor] Respiratory 35 H 35 H 35 H Rate Blood Pressure 141/74 141/74 141/74 O2 Sat by Pulse 94 94 94 Oximetry 10/26/21 10/26/21 10/26/21 23:30 23:32 23:45 Temperature Pulse Rate 85 85 85 Pulse Rate [ From Monitor] Respiratory 36 H 38 H Rate Blood Pressure 145/72 145/72 148/78 O2 Sat by Pulse 94 94 94 Oximetry 10/27/21 10/27/21 10/27/21 00:00 00:15 00:30 Temperature 100.6 F H Pulse Rate 85 85 85 Pulse Rate [ 89 From Monitor] Respiratory 36 H 35 H 35 H Rate Blood Pressure 152/76 157/75 152/76 O2 Sat by Pulse 94 94 94 Oximetry 10/27/21 10/27/21 10/27/21 00:45 01:00 01:15 Temperature Pulse Rate 86 85 86 Pulse Rate [ From Monitor] Respiratory 34 H 36 H 35 H Rate Blood Pressure 148/78 143/77 151/74 O2 Sat by Pulse 95 93 94 Oximetry 12/10/27/21 10/27/21 01:30 01:45 02:00 Temperature Pulse Rate 86 86 86 Pulse Rate [ From Monitor] Respiratory 34 H 34 H 34 H Rate Blood Pressure 150/76 147/76 145/82 O2 Sat by Pulse 94 94 94 Oximetry 10/27/21 10/27/21 10/27/21 02:15 02:30 02:45 Temperature Pulse Rate 86 86 86 Pulse Rate [ From Monitor] Respiratory 34 H 33 H 33 H Rate Blood Pressure 150/71 145/72 148/75 O2 Sat by Pulse 94 94 94 Oximetry 10/27/21 10/27/21 10/27/21 03:00 03:15 03:30 Temperature Pulse Rate 85 85 86 Pulse Rate [ From Monitor] Respiratory 34 H 33 H 33 H Rate Blood Pressure 148/74 145/73 148/73 O2 Sat by Pulse 94 94 94 Oximetry 10/27/21 10/27/21 10/27/21 03:45 04:00 04:01 Temperature 102.0 F H Pulse Rate 86 85 86 Pulse Rate [ 89 From Monitor] Respiratory 33 H 33 H Rate Blood Pressure 143/69 140/71 140/71 O2 Sat by Pulse 94 94 94 Oximetry 10/27/21 10/27/21 10/27/21 04:15 04:30 04:45 Temperature Pulse Rate 85 84 83 Pulse Rate [ From Monitor] Respiratory 35 H 33 H 32 H Rate Blood Pressure 147/65 147/66 136/72 O2 Sat by Pulse 94 94 95 Oximetry 10/27/21 10/27/21 10/27/21 05:00 05:15 05:30 Temperature Pulse Rate 82 82 81 Pulse Rate [ From Monitor] Respiratory 33 H 32 H 31 H Rate Blood Pressure 136/69 134/73 132/71 O2 Sat by Pulse 94 95 94 Oximetry 10/27/21 10/27/21 10/27/21 05:45 06:00 06:15 Temperature Pulse Rate 82 81 81 Pulse Rate [ From Monitor] Respiratory 30 H 30 H 30 H Rate Blood Pressure 134/69 134/68 130/71 O2 Sat by Pulse 94 94 93 Oximetry 10/27/21 10/27/21 10/27/21 06:29 06:30 06:45 Temperature 99.4 F Pulse Rate 80 78 Pulse Rate [ From Monitor] Respiratory 30 H 32 H Rate Blood Pressure 128/68 131/67 O2 Sat by Pulse 93 93 Oximetry 10/27/21 10/27/21 10/27/21 07:00 07:15 07:30 Temperature 100.9 F H Pulse Rate 79 78 77 Pulse Rate [ From Monitor] Respiratory 29 H 30 H 29 H Rate Blood Pressure 140/76 142/73 143/75 O2 Sat by Pulse 93 94 94 Oximetry 10/27/21 10/27/21 10/27/21 07:45 08:00 08:15 Temperature Pulse Rate 76 76 76 Pulse Rate [ 79 From Monitor] Respiratory 30 H 30 H 24 Rate Blood Pressure 146/80 142/79 141/75 O2 Sat by Pulse 93 93 93 Oximetry 10/27/21 10/27/21 10/27/21 08:30 08:45 09:00 Temperature Pulse Rate 76 76 75 Pulse Rate [ From Monitor] Respiratory 42 H 34 H 25 H Rate Blood Pressure 150/76 160/79 156/82 O2 Sat by Pulse 83 L 93 94 Oximetry 10/27/21 09:25 Temperature Pulse Rate 74 Pulse Rate [ From Monitor] Respiratory Rate Blood Pressure 162/68 O2 Sat by Pulse 95 Oximetry Constitutional: appears uncomfortable, other (morbidly obese) Eyes: non-icteric ENT: oropharynx moist Neck: supple, other (large in circumference) Effort: very labored Ascultation: Bilateral: diminished breath sounds Percussion: Bilateral: not dull Tactile fremitus: Bilateral: normal Cardiovascular: regular rate and rhythm Gastrointestinal: normoactive bowel sounds, soft Extremities: no edema Neurologic: normal mental status Psychiatric: anxious CBC and BMP: 10/27/21 04:20 10/27/21 04:20 ABG, PT/INR, D-dimer: ABG ABG pH 7.419 pH Units (7.350-7.450) 10/27/21 04:35 POC ABG pCO2 69.9 mmHg (32.0-48.0) H 10/21/21 09:34 ABG pCO2 42.1 mm Hg 10/27/21 04:35 POC ABG pO2 65.6 mmHg (83-108) L 10/21/21 09:34 ABG pO2 61.3 mm Hg (80.0-90.0) L 10/27/21 04:35 POC ABG HCO3 24.5 10/21/21 09:34 ABG O2 Saturation 91.3 % (95.0-99.0) L 10/27/21 04:35 PT/INR, D-dimer PT 14.8 Sec. (12.2-14.9) 10/20/21 13:30 INR 1.05 (0.87-1.13) 10/20/21 13:30 D-Dimer 1019.09 ng/mlDDU (0-234) H 10/23/21 04:45 Abnormal lab findings: Abnormal Labs 10/18/21 10/18/21 10/19/21 16:39 16:39 08:24 Hgb Hct MCV 79 L MCH 26 L MCHC RDW 15.4 H Lymph % (Auto) 7.7 L Lymph # (Auto) 0.6 L Seg Neutrophils % 86.4 H Seg Neutrophils # D-Dimer Heparin Anti-Xa Level ABG pH POC ABG pCO2 POC ABG pO2 ABG pO2 ABG HCO3 ABG O2 Saturation ABG Base Excess ABG Hemoglobin ABG Oxyhemoglobin ABG Sodium ABG Potassium ABG Glucose Oxyhemoglobin Carboxyhemoglobin Sodium 133 L Potassium Chloride 96.6 L Carbon Dioxide 19 L BUN Creatinine Glucose 183 H POC Glucose Hemoglobin A1c Calcium Phosphorus Magnesium Ferritin AST 72 H ALT 58 H Lactate Dehydrogenase Total Creatine Kinase 1484 H C-Reactive Protein Total Protein Albumin 3.6 L Triglycerides Arterial Blood Glucose Arterial Blood Ionized Calcium Urine Creatinine Urine Total Protein Coronavirus (PCR) Positive A 10/19/21 10/19/21 10/19/21 13:41 17:41 21:02 Hgb Hct MCV MCH MCHC RDW Lymph % (Auto) Lymph # (Auto) Seg Neutrophils % Seg Neutrophils # D-Dimer Heparin Anti-Xa Level ABG pH POC ABG pCO2 POC ABG pO2 ABG pO2 ABG HCO3 ABG O2 Saturation ABG Base Excess ABG Hemoglobin ABG Oxyhemoglobin ABG Sodium ABG Potassium ABG Glucose Oxyhemoglobin Carboxyhemoglobin Sodium Potassium Chloride Carbon Dioxide BUN Creatinine Glucose POC Glucose 231 H 228 H 271 H Hemoglobin A1c Calcium Phosphorus Magnesium Ferritin AST ALT Lactate Dehydrogenase Total Creatine Kinase C-Reactive Protein Total Protein Albumin Triglycerides Arterial Blood Glucose Arterial Blood Ionized Calcium Urine Creatinine Urine Total Protein Coronavirus (PCR) 10/19/21 10/19/21 10/19/21 23:52 23:52 23:52 Hgb Hct MCV 79 L MCH 25 L MCHC RDW 15.9 H Lymph % (Auto) 4.9 L Lymph # (Auto) 0.5 L Seg Neutrophils % 89.7 H Seg Neutrophils # 8.9 H D-Dimer Heparin Anti-Xa Level ABG pH POC ABG pCO2 POC ABG pO2 ABG pO2 ABG HCO3 ABG O2 Saturation ABG Base Excess ABG Hemoglobin ABG Oxyhemoglobin ABG Sodium ABG Potassium ABG Glucose Oxyhemoglobin Carboxyhemoglobin Sodium 133 L Potassium Chloride 95.0 L Carbon Dioxide 18 L BUN Creatinine Glucose 217 H POC Glucose Hemoglobin A1c 7.9 H Calcium Phosphorus Magnesium Ferritin AST 94 H ALT 76 H Lactate Dehydrogenase Total Creatine Kinase C-Reactive Protein Total Protein 8.4 H Albumin 3.6 L Triglycerides Arterial Blood Glucose Arterial Blood Ionized Calcium Urine Creatinine Urine Total Protein Coronavirus (PCR) 10/19/21 10/19/21 10/19/21 23:52 23:52 23:52 Hgb Hct MCV MCH MCHC RDW Lymph % (Auto) Lymph # (Auto) Seg Neutrophils % Seg Neutrophils # D-Dimer Heparin Anti-Xa Level ABG pH POC ABG pCO2 POC ABG pO2 ABG pO2 ABG HCO3 ABG O2 Saturation ABG Base Excess ABG Hemoglobin ABG Oxyhemoglobin ABG Sodium ABG Potassium ABG Glucose Oxyhemoglobin Carboxyhemoglobin Sodium Potassium Chloride Carbon Dioxide BUN Creatinine Glucose POC Glucose Hemoglobin A1c Calcium Phosphorus Magnesium Ferritin 786.1 H AST ALT Lactate Dehydrogenase 625 H Total Creatine Kinase C-Reactive Protein 18.80 H Total Protein Albumin Triglycerides Arterial Blood Glucose Arterial Blood Ionized Calcium Urine Creatinine Urine Total Protein Coronavirus (PCR) 10/19/21 10/20/21 10/20/21 23:52 11:25 14:40 Hgb Hct MCV MCH MCHC RDW Lymph % (Auto) Lymph # (Auto) Seg Neutrophils % Seg Neutrophils # D-Dimer Heparin Anti-Xa Level ABG pH 7.282 L POC ABG pCO2 53.7 H POC ABG pO2 57.3 L ABG pO2 ABG HCO3 ABG O2 Saturation ABG Base Excess ABG Hemoglobin ABG Oxyhemoglobin 83.6 L ABG Sodium 132.2 L ABG Potassium 5.5 H ABG Glucose 255 H Oxyhemoglobin Carboxyhemoglobin 0.3 L Sodium Potassium Chloride Carbon Dioxide BUN Creatinine Glucose POC Glucose 174 H Hemoglobin A1c Calcium Phosphorus Magnesium Ferritin AST ALT Lactate Dehydrogenase Total Creatine Kinase C-Reactive Protein 19.20 H Total Protein Albumin Triglycerides Arterial Blood Glucose 255 H Arterial Blood Ionized Calcium Urine Creatinine Urine Total Protein Coronavirus (PCR) 10/20/21 10/20/21 10/20/21 15:49 19:11 22:51 Hgb Hct MCV MCH MCHC RDW Lymph % (Auto) Lymph # (Auto) Seg Neutrophils % Seg Neutrophils # D-Dimer Heparin Anti-Xa Level ABG pH POC ABG pCO2 POC ABG pO2 ABG pO2 ABG HCO3 ABG O2 Saturation ABG Base Excess ABG Hemoglobin ABG Oxyhemoglobin ABG Sodium ABG Potassium ABG Glucose Oxyhemoglobin Carboxyhemoglobin Sodium Potassium Chloride Carbon Dioxide BUN Creatinine Glucose POC Glucose 239 H 198 H 171 H Hemoglobin A1c Calcium Phosphorus Magnesium Ferritin AST ALT Lactate Dehydrogenase Total Creatine Kinase C-Reactive Protein Total Protein Albumin Triglycerides Arterial Blood Glucose Arterial Blood Ionized Calcium Urine Creatinine Urine Total Protein Coronavirus (PCR) 10/20/21 10/21/21 10/21/21 Unknown 02:16 02:16 Hgb Hct MCV 83 L MCH 25 L MCHC 31 L RDW 16.4 H Lymph % (Auto) Lymph # (Auto) Seg Neutrophils % Seg Neutrophils # D-Dimer Heparin Anti-Xa Level ABG pH POC ABG pCO2 POC ABG pO2 ABG pO2 ABG HCO3 ABG O2 Saturation ABG Base Excess ABG Hemoglobin ABG Oxyhemoglobin ABG Sodium ABG Potassium ABG Glucose Oxyhemoglobin Carboxyhemoglobin Sodium 135 L Potassium Chloride 96.5 L Carbon Dioxide BUN Creatinine Glucose 191 H POC Glucose Hemoglobin A1c Calcium 8.3 L Phosphorus 10.40 H Magnesium 3.00 H Ferritin AST 107 H ALT 94 H Lactate Dehydrogenase 970 H Total Creatine Kinase C-Reactive Protein 21.10 H Total Protein Albumin 3.5 L Triglycerides Arterial Blood Glucose Arterial Blood Ionized Calcium Urine Creatinine Urine Total Protein Coronavirus (PCR) 10/21/21 10/21/21 10/21/21 02:16 02:16 03:30 Hgb Hct MCV MCH MCHC RDW Lymph % (Auto) Lymph # (Auto) Seg Neutrophils % Seg Neutrophils # D-Dimer 579.49 H Heparin Anti-Xa Level 1.60 H ABG pH POC ABG pCO2 POC ABG pO2 ABG pO2 ABG HCO3 ABG O2 Saturation ABG Base Excess ABG Hemoglobin ABG Oxyhemoglobin ABG Sodium ABG Potassium ABG Glucose Oxyhemoglobin Carboxyhemoglobin Sodium 136 L Potassium 7.0 H* D Chloride Carbon Dioxide BUN 43 H Creatinine 2.3 H D Glucose 210 H POC Glucose Hemoglobin A1c Calcium 8.3 L Phosphorus Magnesium Ferritin 1550.0 H AST 206 H ALT 194 H Lactate Dehydrogenase Total Creatine Kinase C-Reactive Protein Total Protein Albumin 3.3 L Triglycerides Arterial Blood Glucose Arterial Blood Ionized Calcium Urine Creatinine Urine Total Protein Coronavirus (PCR) 10/21/21 10/21/21 10/21/21 04:40 04:51 09:15 Hgb Hct MCV MCH MCHC RDW Lymph % (Auto) Lymph # (Auto) Seg Neutrophils % Seg Neutrophils # D-Dimer Heparin Anti-Xa Level ABG pH 7.184 L* POC ABG pCO2 POC ABG pO2 ABG pO2 60.2 L ABG HCO3 ABG O2 Saturation 86.6 L ABG Base Excess -4.3 L ABG Hemoglobin 12.1 L ABG Oxyhemoglobin ABG Sodium ABG Potassium ABG Glucose Oxyhemoglobin 85.2 L Carboxyhemoglobin Sodium Potassium Chloride Carbon Dioxide BUN Creatinine Glucose POC Glucose 204 H 177 H Hemoglobin A1c Calcium Phosphorus Magnesium Ferritin AST ALT Lactate Dehydrogenase Total Creatine Kinase C-Reactive Protein Total Protein Albumin Triglycerides Arterial Blood Glucose Arterial Blood Ionized Calcium Urine Creatinine Urine Total Protein Coronavirus (PCR) 10/21/21 10/21/21 10/21/21 09:34 10:53 11:27 Hgb Hct MCV MCH MCHC RDW Lymph % (Auto) Lymph # (Auto) Seg Neutrophils % Seg Neutrophils # D-Dimer Heparin Anti-Xa Level ABG pH 7.162 L POC ABG pCO2 69.9 H POC ABG pO2 65.6 L ABG pO2 ABG HCO3 ABG O2 Saturation ABG Base Excess ABG Hemoglobin ABG Oxyhemoglobin 89.7 L ABG Sodium ABG Potassium 6.5 H ABG Glucose 190 H Oxyhemoglobin Carboxyhemoglobin 0.4 L Sodium Potassium Chloride Carbon Dioxide BUN Creatinine Glucose POC Glucose 183 H 184 H Hemoglobin A1c Calcium Phosphorus Magnesium Ferritin AST ALT Lactate Dehydrogenase Total Creatine Kinase C-Reactive Protein Total Protein Albumin Triglycerides Arterial Blood Glucose 190 H Arterial Blood Ionized Calcium 4.2 L Urine Creatinine Urine Total Protein Coronavirus (PCR) 10/21/21 10/21/21 10/21/21 12:00 12:39 16:20 Hgb Hct MCV MCH MCHC RDW Lymph % (Auto) Lymph # (Auto) Seg Neutrophils % Seg Neutrophils # D-Dimer Heparin Anti-Xa Level ABG pH 7.183 L* POC ABG pCO2 POC ABG pO2 ABG pO2 ABG HCO3 26.2 H ABG O2 Saturation 94.6 L ABG Base Excess -3.6 L ABG Hemoglobin 13.1 L ABG Oxyhemoglobin ABG Sodium ABG Potassium ABG Glucose Oxyhemoglobin 93.0 L Carboxyhemoglobin Sodium Potassium 6.7 H* Chloride Carbon Dioxide BUN 54 H Creatinine 2.8 H Glucose 190 H POC Glucose 208 H Hemoglobin A1c Calcium 8.0 L Phosphorus Magnesium Ferritin AST ALT Lactate Dehydrogenase Total Creatine Kinase C-Reactive Protein Total Protein Albumin Triglycerides Arterial Blood Glucose Arterial Blood Ionized Calcium Urine Creatinine Urine Total Protein Coronavirus (PCR) 10/21/21 10/21/21 10/21/21 20:46 21:45 23:16 Hgb Hct MCV MCH MCHC RDW Lymph % (Auto) Lymph # (Auto) Seg Neutrophils % Seg Neutrophils # D-Dimer Heparin Anti-Xa Level ABG pH 7.193 L* POC ABG pCO2 POC ABG pO2 ABG pO2 59.7 L ABG HCO3 27.0 H ABG O2 Saturation 88.0 L ABG Base Excess -2.2 L ABG Hemoglobin 11.1 L ABG Oxyhemoglobin ABG Sodium ABG Potassium ABG Glucose Oxyhemoglobin 86.5 L Carboxyhemoglobin Sodium Potassium Chloride Carbon Dioxide BUN Creatinine Glucose POC Glucose 192 H 204 H Hemoglobin A1c Calcium Phosphorus Magnesium Ferritin AST ALT Lactate Dehydrogenase Total Creatine Kinase C-Reactive Protein Total Protein Albumin Triglycerides Arterial Blood Glucose Arterial Blood Ionized Calcium Urine Creatinine Urine Total Protein Coronavirus (PCR) 10/21/21 10/21/21 10/21/21 Unknown Unknown Unknown Hgb Hct MCV MCH MCHC RDW Lymph % (Auto) Lymph # (Auto) Seg Neutrophils % Seg Neutrophils # D-Dimer Heparin Anti-Xa Level 1.04 H 0.82 H ABG pH POC ABG pCO2 POC ABG pO2 ABG pO2 ABG HCO3 ABG O2 Saturation ABG Base Excess ABG Hemoglobin ABG Oxyhemoglobin ABG Sodium ABG Potassium ABG Glucose Oxyhemoglobin Carboxyhemoglobin Sodium Potassium Chloride Carbon Dioxide BUN Creatinine Glucose POC Glucose Hemoglobin A1c Calcium Phosphorus Magnesium Ferritin AST ALT Lactate Dehydrogenase Total Creatine Kinase C-Reactive Protein Total Protein Albumin Triglycerides Arterial Blood Glucose Arterial Blood Ionized Calcium Urine Creatinine 153.1 H Urine Total Protein 173 H Coronavirus (PCR) 10/22/21 10/22/21 10/22/21 02:50 02:50 02:50 Hgb 11.2 L Hct MCV MCH MCHC RDW Lymph % (Auto) Lymph # (Auto) Seg Neutrophils % Seg Neutrophils # D-Dimer Heparin Anti-Xa Level ABG pH POC ABG pCO2 POC ABG pO2 ABG pO2 ABG HCO3 ABG O2 Saturation ABG Base Excess ABG Hemoglobin ABG Oxyhemoglobin ABG Sodium ABG Potassium ABG Glucose Oxyhemoglobin Carboxyhemoglobin Sodium Potassium 6.0 H Chloride 95.4 L Carbon Dioxide BUN 51 H Creatinine 3.2 H Glucose 227 H POC Glucose Hemoglobin A1c Calcium 7.7 L Phosphorus 9.30 H Magnesium 2.50 H Ferritin AST 239 H ALT 199 H Lactate Dehydrogenase Total Creatine Kinase C-Reactive Protein Total Protein Albumin 3.2 L Triglycerides 390 H Arterial Blood Glucose Arterial Blood Ionized Calcium Urine Creatinine Urine Total Protein Coronavirus (PCR) 10/22/21 10/22/21 10/22/21 04:42 11:34 18:30 Hgb Hct MCV MCH MCHC RDW Lymph % (Auto) Lymph # (Auto) Seg Neutrophils % Seg Neutrophils # D-Dimer Heparin Anti-Xa Level ABG pH POC ABG pCO2 POC ABG pO2 ABG pO2 ABG HCO3 ABG O2 Saturation ABG Base Excess ABG Hemoglobin ABG Oxyhemoglobin ABG Sodium ABG Potassium ABG Glucose Oxyhemoglobin Carboxyhemoglobin Sodium Potassium Chloride Carbon Dioxide BUN Creatinine Glucose POC Glucose 227 H 256 H 201 H Hemoglobin A1c Calcium Phosphorus Magnesium Ferritin AST ALT Lactate Dehydrogenase Total Creatine Kinase C-Reactive Protein Total Protein Albumin Triglycerides Arterial Blood Glucose Arterial Blood Ionized Calcium Urine Creatinine Urine Total Protein Coronavirus (PCR) 10/22/21 10/23/21 10/23/21 23:29 04:45 04:45 Hgb Hct MCV MCH MCHC RDW Lymph % (Auto) Lymph # (Auto) Seg Neutrophils % Seg Neutrophils # D-Dimer 1019.09 H Heparin Anti-Xa Level ABG pH POC ABG pCO2 POC ABG pO2 ABG pO2 ABG HCO3 ABG O2 Saturation ABG Base Excess ABG Hemoglobin ABG Oxyhemoglobin ABG Sodium ABG Potassium ABG Glucose Oxyhemoglobin Carboxyhemoglobin Sodium 129 L D Potassium 5.9 H Chloride 90.7 L Carbon Dioxide BUN 65 H Creatinine 4.4 H Glucose 329 H POC Glucose 269 H Hemoglobin A1c Calcium 8.2 L Phosphorus 9.60 H Magnesium 2.50 H Ferritin AST 181 H ALT 227 H Lactate Dehydrogenase 712 H Total Creatine Kinase C-Reactive Protein 6.40 H Total Protein Albumin 3.3 L Triglycerides Arterial Blood Glucose Arterial Blood Ionized Calcium Urine Creatinine Urine Total Protein Coronavirus (PCR) 10/23/21 10/23/21 10/23/21 04:45 05:38 08:59 Hgb 11.5 L Hct MCV 81 L MCH 25 L MCHC 31 L RDW 15.3 H Lymph % (Auto) Lymph # (Auto) Seg Neutrophils % Seg Neutrophils # D-Dimer Heparin Anti-Xa Level ABG pH 7.167 L* POC ABG pCO2 POC ABG pO2 ABG pO2 66.1 L ABG HCO3 ABG O2 Saturation 89.9 L ABG Base Excess -4.5 L ABG Hemoglobin 13.3 L ABG Oxyhemoglobin ABG Sodium ABG Potassium ABG Glucose Oxyhemoglobin 88.4 L Carboxyhemoglobin Sodium Potassium Chloride Carbon Dioxide BUN Creatinine Glucose POC Glucose 313 H Hemoglobin A1c Calcium Phosphorus Magnesium Ferritin AST ALT Lactate Dehydrogenase Total Creatine Kinase C-Reactive Protein Total Protein Albumin Triglycerides Arterial Blood Glucose Arterial Blood Ionized Calcium Urine Creatinine Urine Total Protein Coronavirus (PCR) 10/23/21 10/23/21 10/24/21 12:05 22:54 05:09 Hgb Hct MCV MCH MCHC RDW Lymph % (Auto) Lymph # (Auto) Seg Neutrophils % Seg Neutrophils # D-Dimer Heparin Anti-Xa Level ABG pH 7.161 L* POC ABG pCO2 POC ABG pO2 ABG pO2 71.5 L ABG HCO3 ABG O2 Saturation 91.8 L ABG Base Excess -4.7 L ABG Hemoglobin 11.6 L ABG Oxyhemoglobin ABG Sodium ABG Potassium ABG Glucose Oxyhemoglobin 90.4 L Carboxyhemoglobin Sodium Potassium Chloride Carbon Dioxide BUN Creatinine Glucose POC Glucose 333 H 326 H Hemoglobin A1c Calcium Phosphorus Magnesium Ferritin AST ALT Lactate Dehydrogenase Total Creatine Kinase C-Reactive Protein Total Protein Albumin Triglycerides Arterial Blood Glucose Arterial Blood Ionized Calcium Urine Creatinine Urine Total Protein Coronavirus (PCR) 10/24/21 10/24/21 10/24/21 05:30 05:30 05:30 Hgb 11.7 L Hct MCV 80 L MCH 26 L MCHC RDW 15.5 H Lymph % (Auto) Lymph # (Auto) Seg Neutrophils % Seg Neutrophils # D-Dimer Heparin Anti-Xa Level ABG pH POC ABG pCO2 POC ABG pO2 ABG pO2 ABG HCO3 ABG O2 Saturation ABG Base Excess ABG Hemoglobin ABG Oxyhemoglobin ABG Sodium ABG Potassium ABG Glucose Oxyhemoglobin Carboxyhemoglobin Sodium 133 L Potassium 5.8 H Chloride 93.6 L Carbon Dioxide 19 L BUN 97 H Creatinine 5.7 H Glucose 307 H POC Glucose Hemoglobin A1c Calcium 7.4 L Phosphorus 11.10 H Magnesium 2.80 H Ferritin 1307.0 H AST 79 H ALT 171 H Lactate Dehydrogenase Total Creatine Kinase C-Reactive Protein Total Protein Albumin 3.2 L Triglycerides Arterial Blood Glucose Arterial Blood Ionized Calcium Urine Creatinine Urine Total Protein Coronavirus (PCR) 10/24/21 10/24/21 10/24/21 05:30 05:39 11:39 Hgb Hct MCV MCH MCHC RDW Lymph % (Auto) Lymph # (Auto) Seg Neutrophils % Seg Neutrophils # D-Dimer Heparin Anti-Xa Level 0.13 L ABG pH POC ABG pCO2 POC ABG pO2 ABG pO2 ABG HCO3 ABG O2 Saturation ABG Base Excess ABG Hemoglobin ABG Oxyhemoglobin ABG Sodium ABG Potassium ABG Glucose Oxyhemoglobin Carboxyhemoglobin Sodium Potassium Chloride Carbon Dioxide BUN Creatinine Glucose POC Glucose 271 H 196 H Hemoglobin A1c Calcium Phosphorus Magnesium Ferritin AST ALT Lactate Dehydrogenase Total Creatine Kinase C-Reactive Protein Total Protein Albumin Triglycerides Arterial Blood Glucose Arterial Blood Ionized Calcium Urine Creatinine Urine Total Protein Coronavirus (PCR) 10/24/21 10/24/21 10/24/21 13:29 15:45 17:14 Hgb Hct MCV MCH MCHC RDW Lymph % (Auto) Lymph # (Auto) Seg Neutrophils % Seg Neutrophils # D-Dimer Heparin Anti-Xa Level 0.21 L ABG pH POC ABG pCO2 POC ABG pO2 ABG pO2 ABG HCO3 ABG O2 Saturation ABG Base Excess ABG Hemoglobin ABG Oxyhemoglobin ABG Sodium ABG Potassium ABG Glucose Oxyhemoglobin Carboxyhemoglobin Sodium 135 L Potassium 5.1 H Chloride 94.1 L Carbon Dioxide BUN 67 H Creatinine 4.1 H Glucose 227 H POC Glucose 202 H Hemoglobin A1c Calcium 7.8 L Phosphorus Magnesium Ferritin AST ALT Lactate Dehydrogenase Total Creatine Kinase C-Reactive Protein Total Protein Albumin Triglycerides Arterial Blood Glucose Arterial Blood Ionized Calcium Urine Creatinine Urine Total Protein Coronavirus (PCR) 10/24/21 10/25/21 10/25/21 22:39 04:42 06:00 Hgb Hct MCV MCH MCHC RDW Lymph % (Auto) Lymph # (Auto) Seg Neutrophils % Seg Neutrophils # D-Dimer Heparin Anti-Xa Level ABG pH POC ABG pCO2 POC ABG pO2 ABG pO2 ABG HCO3 ABG O2 Saturation ABG Base Excess ABG Hemoglobin ABG Oxyhemoglobin ABG Sodium ABG Potassium ABG Glucose Oxyhemoglobin Carboxyhemoglobin Sodium Potassium Chloride Carbon Dioxide BUN Creatinine Glucose POC Glucose 215 H 223 H Hemoglobin A1c Calcium Phosphorus Magnesium Ferritin AST ALT Lactate Dehydrogenase Total Creatine Kinase C-Reactive Protein Total Protein Albumin Triglycerides 492 H Arterial Blood Glucose Arterial Blood Ionized Calcium Urine Creatinine Urine Total Protein Coronavirus (PCR) 10/25/21 10/25/21 10/25/21 06:00 06:00 11:50 Hgb Hct MCV 79 L MCH 25 L MCHC RDW 15.4 H Lymph % (Auto) Lymph # (Auto) Seg Neutrophils % Seg Neutrophils # D-Dimer Heparin Anti-Xa Level ABG pH POC ABG pCO2 POC ABG pO2 ABG pO2 ABG HCO3 ABG O2 Saturation ABG Base Excess ABG Hemoglobin ABG Oxyhemoglobin ABG Sodium ABG Potassium ABG Glucose Oxyhemoglobin Carboxyhemoglobin Sodium 136 L Potassium 5.2 H Chloride 95.9 L Carbon Dioxide BUN 85 H Creatinine 3.6 H Glucose 246 H POC Glucose 188 H Hemoglobin A1c Calcium 7.6 L Phosphorus Magnesium Ferritin AST ALT Lactate Dehydrogenase Total Creatine Kinase C-Reactive Protein Total Protein Albumin Triglycerides Arterial Blood Glucose Arterial Blood Ionized Calcium Urine Creatinine Urine Total Protein Coronavirus (PCR) 10/25/21 10/25/21 10/26/21 14:17 17:10 00:26 Hgb Hct MCV MCH MCHC RDW Lymph % (Auto) Lymph # (Auto) Seg Neutrophils % Seg Neutrophils # D-Dimer Heparin Anti-Xa Level ABG pH 7.275 L POC ABG pCO2 POC ABG pO2 ABG pO2 78.7 L ABG HCO3 ABG O2 Saturation 94.7 L ABG Base Excess -2.3 L ABG Hemoglobin 12.7 L ABG Oxyhemoglobin ABG Sodium ABG Potassium ABG Glucose Oxyhemoglobin 93.0 L Carboxyhemoglobin Sodium Potassium Chloride Carbon Dioxide BUN Creatinine Glucose POC Glucose 190 H 219 H Hemoglobin A1c Calcium Phosphorus Magnesium Ferritin AST ALT Lactate Dehydrogenase Total Creatine Kinase C-Reactive Protein Total Protein Albumin Triglycerides Arterial Blood Glucose Arterial Blood Ionized Calcium Urine Creatinine Urine Total Protein Coronavirus (PCR) 10/26/21 10/26/21 10/26/21 04:02 04:02 04:02 Hgb 11.5 L Hct MCV 80 L MCH 26 L MCHC RDW 15.3 H Lymph % (Auto) Lymph # (Auto) Seg Neutrophils % Seg Neutrophils # D-Dimer Heparin Anti-Xa Level ABG pH POC ABG pCO2 POC ABG pO2 ABG pO2 ABG HCO3 ABG O2 Saturation ABG Base Excess ABG Hemoglobin ABG Oxyhemoglobin ABG Sodium ABG Potassium ABG Glucose Oxyhemoglobin Carboxyhemoglobin Sodium Potassium Chloride Carbon Dioxide BUN 96 H Creatinine 2.6 H Glucose 246 H POC Glucose Hemoglobin A1c Calcium 7.5 L Phosphorus Magnesium Ferritin AST ALT Lactate Dehydrogenase Total Creatine Kinase C-Reactive Protein Total Protein Albumin Triglycerides 521 H Arterial Blood Glucose Arterial Blood Ionized Calcium Urine Creatinine Urine Total Protein Coronavirus (PCR) 10/26/21 10/26/21 10/26/21 04:20 11:56 13:03 Hgb Hct MCV MCH MCHC RDW Lymph % (Auto) Lymph # (Auto) Seg Neutrophils % Seg Neutrophils # D-Dimer Heparin Anti-Xa Level ABG pH 7.331 L POC ABG pCO2 POC ABG pO2 ABG pO2 58.3 L ABG HCO3 26.9 H ABG O2 Saturation 87.4 L ABG Base Excess ABG Hemoglobin 9.4 L ABG Oxyhemoglobin ABG Sodium ABG Potassium ABG Glucose Oxyhemoglobin 85.6 L Carboxyhemoglobin Sodium Potassium Chloride Carbon Dioxide BUN Creatinine Glucose POC Glucose 178 H 173 H Hemoglobin A1c Calcium Phosphorus Magnesium Ferritin AST ALT Lactate Dehydrogenase Total Creatine Kinase C-Reactive Protein Total Protein Albumin Triglycerides Arterial Blood Glucose Arterial Blood Ionized Calcium Urine Creatinine Urine Total Protein Coronavirus (PCR) 10/26/21 10/26/21 10/27/21 16:57 23:24 04:20 Hgb Hct MCV MCH MCHC RDW Lymph % (Auto) Lymph # (Auto) Seg Neutrophils % Seg Neutrophils # D-Dimer Heparin Anti-Xa Level ABG pH POC ABG pCO2 POC ABG pO2 ABG pO2 ABG HCO3 ABG O2 Saturation ABG Base Excess ABG Hemoglobin ABG Oxyhemoglobin ABG Sodium ABG Potassium ABG Glucose Oxyhemoglobin Carboxyhemoglobin Sodium Potassium Chloride Carbon Dioxide BUN Creatinine Glucose POC Glucose 154 H 199 H Hemoglobin A1c Calcium Phosphorus Magnesium Ferritin AST ALT Lactate Dehydrogenase Total Creatine Kinase C-Reactive Protein Total Protein Albumin Triglycerides 392 H Arterial Blood Glucose Arterial Blood Ionized Calcium Urine Creatinine Urine Total Protein Coronavirus (PCR) 10/27/21 10/27/21 10/27/21 04:20 04:20 04:35 Hgb 11.2 L Hct 35.2 L MCV 79 L MCH 25 L MCHC RDW 16.0 H Lymph % (Auto) Lymph # (Auto) Seg Neutrophils % Seg Neutrophils # D-Dimer Heparin Anti-Xa Level ABG pH POC ABG pCO2 POC ABG pO2 ABG pO2 61.3 L ABG HCO3 26.6 H ABG O2 Saturation 91.3 L ABG Base Excess ABG Hemoglobin 11.3 L ABG Oxyhemoglobin ABG Sodium ABG Potassium ABG Glucose Oxyhemoglobin 89.4 L Carboxyhemoglobin Sodium 146 H D Potassium Chloride 107.2 H Carbon Dioxide BUN 102 H Creatinine 1.8 H Glucose 207 H POC Glucose Hemoglobin A1c Calcium 7.9 L Phosphorus Magnesium Ferritin AST ALT Lactate Dehydrogenase Total Creatine Kinase C-Reactive Protein Total Protein Albumin Triglycerides Arterial Blood Glucose Arterial Blood Ionized Calcium Urine Creatinine Urine Total Protein Coronavirus (PCR) 10/27/21 05:17 Hgb Hct MCV MCH MCHC RDW Lymph % (Auto) Lymph # (Auto) Seg Neutrophils % Seg Neutrophils # D-Dimer Heparin Anti-Xa Level ABG pH POC ABG pCO2 POC ABG pO2 ABG pO2 ABG HCO3 ABG O2 Saturation ABG Base Excess ABG Hemoglobin ABG Oxyhemoglobin ABG Sodium ABG Potassium ABG Glucose Oxyhemoglobin Carboxyhemoglobin Sodium Potassium Chloride Carbon Dioxide BUN Creatinine Glucose POC Glucose 180 H Hemoglobin A1c Calcium Phosphorus Magnesium Ferritin AST ALT Lactate Dehydrogenase Total Creatine Kinase C-Reactive Protein Total Protein Albumin Triglycerides Arterial Blood Glucose Arterial Blood Ionized Calcium Urine Creatinine Urine Total Protein Coronavirus (PCR)
[2021-10-27] MEDS: FAMOTIDINE 20 MG/2 ML INJ IV SCH ×2 (10:18→21:12)
[2021-10-27] MEDS: SENNOSIDES ORAL LIQD 8.8 MG/5 ML ORAL LIQD FEEDTUBE SCH ×2 (10:18→21:12)
[2021-10-27] MEDS: DOCUSATE SODIUM 100 MG/10 ML ORAL LIQD PO SCH ×2 (10:18→21:12)
[2021-10-27] MEDS: CALCIUM ACETATE 667 MG CAP PO SCH ×3 (10:18→19:11)
[2021-10-27] MEDS: QUEtiapine 100 MG TAB PO SCH ×2 (10:18→21:12)
--- NOTE | 2021-10-27 11:48 | Progress Note ---
<JOAN SERRANO - Last Filed: 10/27/21 23:02> Assessment and Plan Assessment and plan: This is a 26-year-old male with HTN, DM, asthma and gout admitted with COVID-19 pneumonia and pulmonary embolism. Hospital Course to Date: 10/19: Patient is currently anxious and restless with moderate respiratory distress. He is hypoxic and needing nasal cannula to and NRB alternately. BP and pulse stable. Patient has dry cough. Afebrile. No acute GI symptoms currently. 10/20: Patient was a code met from the floor to ICU. Patient was initially placed on BiPAP however due to his anxiety he was unable to tolerate and ultimately was intubated. Patient is currently sedated on fentanyl and Versed. Central line and Scott catheter placed today. Bilateral respirations in place. and mother updated at bedside today. 10/21: BUN/Cr increase noted and nephro consulted. Nephro will like to start HD. Femoral vascath placement delayed d/t elevated aPTT and renal US. CCM made changes to vent. Hyperkalemia medically treated. and mother updated at bedside by CLEANING TECHNICIAN. Vascath and noemí placed. HD RN aware 10/22: HD planned for today, steroids changed to Solu-Medrol 60 every 8 and long-acting insulin. Patient is stacking breaths and SPO2 in the upper 80s. We will add Precedex for increased sedation. Increasing FiO2 due to desaturation overnight. 10/23: Nephrology will medically treat potassium and HD tomorrow, increase in vent settings overnight due to hypoxia. Remains sedated on Precedex, fentanyl, Versed and propofol. Increase in Lantus today, tube feedings held due to high residuals, increase in total volume. and mother updated at bedside today. HD removed 3 L of fluid yesterday per HD nurse documentation. 10/24: Patient remains intubated and sedated, RASS -4. Remains hyperkalemic this am, HD at the bedside, K to be corrected, will repeat BMP in 4 to 6hrs. TF re julieta on hold due to high residual, no vomiting. IV reglan initiated, will do trickle feeds for now and reassess in the am. 10/25: Patient melody down into the 40s overnight, precedex gtt held. s/p X1 dose of IVP Robert this am for vent synchrony. Plan for possible nimbex gtt for 48hrs. Patient is still hyperkalemic this am, no intervention at this time per Nephro plan for HD tomorrow. Basal dose lantus was increased for tighter glycemic control. 10/26: Patient now on nimbex gtt fro vent synchrony, patient RR remains in the 30s, SPO2 at 97%. Patient also remains on sedation, seroquel was added to achieve RASS goal. Patient still with high gastric residual despite schedule reglan and BR, per nursing patient with no BM since admit, colace added. Renal function and hyperkalemia improved this am, no HD today per Nephro. 10/27: Remains on the vent, sedated, and on low dose paralytic. Continue to decompensate, SPO2 in the 60 to 70s when not sedated/paralized. D/w CCM okay to continue paralytic for another 48hrs. Renal function continue to improve, hypernatremia noted this am, FWF increased. Repeat lab in the am Assessment and Plan #Neuro:Sedated #H/o Anxiety - Intubated and sedated - Currently sedated on propofol, fentanyl, Versed, and precedex gtts - s/p IV ROBERT pushes - Now on Nimbex gtt added for vent synchrony - Seroquel was also initiated - Close monitoring of QTc - Plan to possibly initiated nimbex gtt for vent synchrony - Bilateral soft restraints in place for safety - Avoid delirium - Maintain sleep-wake cycle #Cardio:Cardiomegaly #Bradycardia #h/o HTN -CTA chest showed mild cardiomegaly without evidence of right heart strain -10/25 HR dropped in the 40s overnight, probably related to precedex gtt vs Vagal response -Hold home antihypertensive regimen -Blood pressure monitoring per protocol -[place] placed 10/21 -Echo shows Normal echocardiogram, LV EF within normal range of 50 to 55%, mild diastolic dysfunction evidenced by impaired relaxation pattern, no pericardial effusion -Vasopressor support with Levophed if needed -Goal MAP greater than 65 #Respiratory: Acute hypoxic respiratory failure 2/2 COVID vs PE #COVID PNA #Pulmonary embolism #h/o asthma -S/p BiPAP and OptiFlow/nonrebreather -CCM consulted, appreciate recommendations -Intubated on 10/20 with 8.00 ETT at 24 cm at the right lip -Vent Setting: A/C- 100%,18,18, 30/60 -This am ABG noted -Wean Fio2 as torerated -VAP bundle addressed -Aspiration precaution HOB above 30 -Daily SBT and SAT trials as tolerated -Daily ABG and CXR -Continue SPO2 monitoring for SPO2 goal above 92% #GI:Transaminitis #Hepatic steatosis #Morbid obesity -CTA chest showed hepatic steatosis -Nutrition consult for tube feeding -Reglan started -Continue Trickle feeds for now still with high gastric residual, 300cc overnight -No Bm since admit -BR: Senokot, Colace added -PPI -Acute hepatitis panel negative #:Acute renal injury most likely ATN #Hypernatremia #Hyperkalemia-improved #Rhabdomyolysis -Cr/BUN 0.8/20 and increased to 2.3/43 -10/21 prompting renal consult and initiation of dialysis -nephrology consulted, appreciate recommendations -renal US in progress -10/21 FeNa at 0.4 indicating prerenal -HD to be initiated 10/21 -HD per nephrology -K and renal function continue to improve -No HD today per Nephro -FWF increased -Strict intake and output with Scott catheter -Intervene with electrolytes as needed -Trend BMP -Kayexalate per renal #ID: COVID-19 pneumonia and influenza -CTA chest showed bilateral lung infiltrates concerning for atypical pneumonia -Infectious disease consulted, appreciate recommendations -Droplet/isolation precautions -IV dexamethasone for 10 days () -Twice daily dosing for morbid obesity -Steroids changed to methylprednisone 60 every 8 per [facility] -S/p Actemra 10/20/2021 -Tamiflu for 5 days () -Procal 0.49 -Antibiotic therapy: Azithromycin (), Rocephin (10/19 -10/23) -S/p IV remdesivir x1 on 10/20 -Trend COVID-19 inflammatory markers -Anticoagulation for pulmonary embolism #Endo: Hyperglycemia #h/o DM -Hemoglobin A1c 7.9 -Patient is on steroids -Continue SSI and Accu-Cheks every 6 -On Lantus Qhs, dose increased to 35units -Avoid hypoglycemia -While critically ill target blood glucose of 140-180 #Heme: Pulmonary embolism -CTA chest showed pulmonary embolus without evidence of right heart strain -Systemic anticoagulation with heparin drip per protocol -Bilateral lower extremity SCDs while in bed -Trend CBC -Transfuse for hemoglobin less than 7 The high probability of a clinically significant, sudden or life threatening deterioration of the [Neuro, Respiratory, ] system(s) required my full and direct attention, intervention and personal management. The aggregate critical care time was [60] minutes. This time is in addition to time spent performing reported procedures but includes the following: [x] Data Review and interpretation [x] Patient assessment and monitoring of vital signs [x] Documentation [x] Medication orders and management Disposition Plan: ICU Total Time Spent with Patient (Minutes): 60 History Interval history: Patient seen and examined at the bedside. Intubated and sedated, on propofol, versede, fentanyl, and precedex gtt. Still on nimbex and heparin gtt. Per nursing staff patient desated in the 60 -70s whenever one of the sedation or paralytic is paused Hospitalist Physical - Constitutional Vitals: Temp Pulse Resp BP Pulse Ox 98.4 F 74 25 H 162/68 95 10/27/21 11:33 10/27/21 09:25 10/27/21 09:00 10/27/21 09:25 10/27/21 09:25 General appearance: Present: mild distress, obese (Morbid obese with BMI 47), other (Intubated and sedated) - EENT Eyes: Present: PERRL - Respiratory Respiratory effort: accessory muscle use Respiratory: bilateral: rhonchi - Cardiovascular Rhythm: regular Heart Sounds: Present: S1 & S2 - Extremities Extremities: no ischemia, pulses intact, pulses symmetrical Extremity abnormal: edema - Peripheral Assessment Generalized Edema Type: Non-pitting Edema Degree: 1+ Capillary Refill: < 3 seconds Skin Temperature: Warm Peripheral Pulses: within normal limits - Abdominal General gastrointestinal: soft, non-tender, hypoactive bowel sounds - Integumentary Integumentary: Present: warm, dry - Psychiatric Psychiatric: other (Intubated and sedated) - Neurologic Neurologic: other (Intubated and sedated) - Allied Health Allied health notes reviewed: nursing HEART Score - HEART Score EKG: Normal Age: < 45 Risk factors: 1-2 risk factors Troponin: Troponin T < 0.010 ng/mL (0.00-0.029) 10/18/21 16:39 Troponin: < normal limit - Critical Actions Critical Actions: 0-3 pts:0.9-1.7%risk of adverse cardiac event.Candidate for discharge Results - Labs CBC & Chem 7: 10/27/21 04:20 10/27/21 04:20 Labs: Laboratory Last Values WBC 9.5 K/mm3 (4.5-11.0) 10/27/21 04:20 RBC 4.48 M/mm3 (3.65-5.03) 10/27/21 04:20 Hgb 11.2 gm/dl (11.8-15.2) L 10/27/21 04:20 Hct 35.2 % (35.5-45.6) L 10/27/21 04:20 MCV 79 fl (84-94) L 10/27/21 04:20 MCH 25 pg (28-32) L 10/27/21 04:20 MCHC 32 % (32-34) 10/27/21 04:20 RDW 16.0 % (13.2-15.2) H 10/27/21 04:20 Plt Count 394 K/mm3 (140-440) 10/27/21 04:20 Lymph % (Auto) 4.9 % (13.4-35.0) L 10/19/21 23:52 [place] % (Auto) 5.3 % (0.0-7.3) 10/19/21 23:52 Eos % (Auto) 0.0 % (0.0-4.3) 10/19/21 23:52 Baso % (Auto) 0.1 % (0.0-1.8) 10/19/21 23:52 Lymph # (Auto) 0.5 K/mm3 (1.2-5.4) L 10/19/21 23:52 [place] # (Auto) 0.5 K/mm3 (0.0-0.8) 10/19/21 23:52 Eos # (Auto) 0.0 K/mm3 (0.0-0.4) 10/19/21 23:52 Baso # (Auto) 0.0 K/mm3 (0.0-0.1) 10/19/21 23:52 Seg Neutrophils % 89.7 % (40.0-70.0) H 10/19/21 23:52 Seg Neutrophils # 8.9 K/mm3 (1.8-7.7) H 10/19/21 23:52 PT 14.8 Sec. (12.2-14.9) 10/20/21 13:30 INR 1.05 (0.87-1.13) 10/20/21 13:30 APTT 36.1 Sec. (24.2-36.6) 10/20/21 13:30 D-Dimer 1019.09 ng/mlDDU (0-234) H 10/23/21 04:45 Heparin Anti-Xa Level 0.35 U.I./ml (0.3-0.7) 10/27/21 04:20 ABG pH 7.419 pH Units (7.350-7.450) 10/27/21 04:35 POC ABG pCO2 69.9 mmHg (32.0-48.0) H 10/21/21 09:34 ABG pCO2 42.1 mm Hg 10/27/21 04:35 POC ABG pO2 65.6 mmHg (83-108) L 10/21/21 09:34 ABG pO2 61.3 mm Hg (80.0-90.0) L 10/27/21 04:35 POC ABG HCO3 24.5 10/21/21 09:34 ABG HCO3 26.6 mmol/L (20.0-26.0) H 10/27/21 04:35 ABG O2 Saturation 91.3 % (95.0-99.0) L 10/27/21 04:35 ABG O2 Content 14.3 (0.0-44) 10/27/21 04:35 POC ABG Base Excess -5.4 10/21/21 09:34 ABG Base Excess 1.9 mmol/L (-2.0-3.0) 10/27/21 04:35 ABG Hemoglobin 11.3 gm/dl (14.0-18.0) L 10/27/21 04:35 ABG Oxyhemoglobin 89.7 (94-98) L 10/21/21 09:34 ABG Carboxyhemoglobin 1.6 % (0.0-5.0) 10/27/21 04:35 ABG Methemoglobin 0.5 % (0.0-1.5) 10/27/21 04:35 ABG Sodium 138.1 mmol/L (136.0-145.0) 10/21/21 09:34 ABG Potassium 6.5 mmol/L (3.40-4.50) H 10/21/21 09:34 ABG Chloride 102.0 mmol/L (98-107) 10/21/21 09:34 ABG Glucose 190 mg/dL (65-95) H 10/21/21 09:34 Oxyhemoglobin 89.4 % (95.0-99.0) L 10/27/21 04:35 Carboxyhemoglobin 0.4 (0.5-1.5) L 10/21/21 09:34 FiO2 100 % 10/27/21 04:35 FiO2 % 100.0 10/21/21 09:34 Sodium 146 mmol/L (137-145) H D 10/27/21 04:20 Potassium 4.9 mmol/L (3.6-5.0) 10/27/21 04:20 Chloride 107.2 mmol/L (98-107) H 10/27/21 04:20 Carbon Dioxide 25 mmol/L (22-30) 10/27/21 04:20 Anion Gap 19 mmol/L 10/27/21 04:20 BUN 102 mg/dL (9-20) H 10/27/21 04:20 Creatinine 1.8 mg/dL (0.8-1.3) H 10/27/21 04:20 Estimated GFR 55 ml/min 10/27/21 04:20 BUN/Creatinine Ratio 57 % 10/27/21 04:20 Glucose 207 mg/dL (75-100) H 10/27/21 04:20 POC Glucose 210 mg/dL (70-105) H 10/27/21 11:26 Hemoglobin A1c 7.9 % (4-6) H 10/19/21 23:52 Lactic Acid 1.40 mmol/L (0.7-2.0) 10/18/21 16:39 Calcium 7.9 mg/dL (8.4-10.2) L 10/27/21 04:20 Phosphorus 11.10 mg/dL (2.5-4.5) H 10/24/21 05:30 Magnesium 2.80 mg/dL (1.7-2.3) H 10/24/21 05:30 Ferritin 1307.0 ng/mL (30.0-300.0) H 10/24/21 05:30 Total Bilirubin 0.20 mg/dL (0.1-1.2) 10/24/21 05:30 AST 79 units/L (5-40) H 10/24/21 05:30 ALT 171 units/L (7-56) H 10/24/21 05:30 Alkaline Phosphatase 73 units/L (35-129) 10/24/21 05:30 Lactate Dehydrogenase 712 units/L (91-180) H 10/23/21 04:45 Total Creatine Kinase 1484 units/L (55-170) H 10/18/21 16:39 CK-MB (CK-2) 3.3 ng/mL (0.0-4.0) 10/18/21 16:39 CK-MB (CK-2) Rel Index 0.2 (0-4) 10/18/21 16:39 Troponin T < 0.010 ng/mL (0.00-0.029) 10/18/21 16:39 C-Reactive Protein 6.40 mg/dL (0.00-1.30) H 10/23/21 04:45 Total Protein 6.9 g/dL (6.3-8.2) 10/24/21 05:30 Albumin 3.2 g/dL (3.9-5) L 10/24/21 05:30 Albumin/Globulin Ratio 0.9 % 10/24/21 05:30 Triglycerides 392 mg/dL (2-149) H 10/27/21 04:20 Lipase 15 units/L (13-60) 10/18/21 16:39 Procalcitonin 0.49 ng/mL (<0.15) 10/19/21 23:52 Arterial Blood Glucose 190 mg/dL (65-95) H 10/21/21 09:34 Arterial Blood Ionized Calcium 4.2 mg/dL (4.6-5.3) L 10/21/21 09:34 Urine Color Yellow (Yellow) 10/18/21 22:26 Urine Turbidity Clear (Clear) 10/18/21 22:26 Urine pH 6.0 (5.0-7.0) 10/18/21 22:26 Ur Specific [place] 1.025 (1.003-1.030) 10/18/21 22:26 Urine Protein 100 mg/dl mg/dL (Negative) 10/18/21 22:26 Urine Glucose (UA) Neg mg/dL (Negative) 10/18/21 22: Urine Ketones Neg mg/dL (Negative) 10/18/21 22: Urine Blood Sm (Negative) 10/18/21 22:26 Urine Nitrite Neg (Negative) 10/18/21 22:26 Urine Bilirubin Neg (Negative) 10/18/21 22:26 Urine Urobilinogen < 2.0 mg/dL (<2.0) 10/18/21 22:26 Ur Leukocyte Esterase Neg (Negative) 10/18/21 22:26 Urine WBC (Auto) < 1.0 /HPF (0.0-6.0) 10/18/21 22: Urine RBC (Auto) < 1.0 /HPF (0.0-6.0) 10/18/21 22: U Epithel Cells (Auto) < 1.0 /HPF (0-13.0) 10/18/21 22: Urine Bacteria (Auto) 1+ /HPF (Negative) 10/18/21 22:26 Urine Creatinine 153.1 mg/dL (0.1-20.0) H 10/21/21 Unknown Urine Sodium 31 mmol/L 10/21/21 Unknown Urine Total Protein 173 mg/dL (5-11.8) H 10/21/21 Unknown Coronavirus (PCR) Positive (Negative) A 10/19/21 08:24 Hepatitis A IgM Ab Non-reactive (NonReactive) 10/19/21 23:52 Hep Bs Antigen Nonreactive (Negative) 10/19/21 23:52 Hep B Core IgM Ab Non-reactive (NonReactive) 10/19/21 23:52 Hepatitis C Antibody Non-reactive (NonReactive) 10/19/21 23:52 Scott/IV: Voiding Method Indwelling Catheter Active Medications - Current Medications Current Medications: Generic Name Dose Route Start Last Admin Trade Name Freq PRN Reason Stop Dose Admin Acetaminophen 650 mg 10/20/21 13:30 10/27/21 04:02 Acetaminophen 325 Mg/10.15 Ml Oral Liqd Unit Dose FEEDTUBE 650 mg Q6H PRN Administration Pain MILD(1-3)/Fever >100.5/HUSSEIN Al Hydrox/Mg Hydrox/Simethicone 30 ml 10/20/21 13:30 Alum-Mag Hydroxide-Simethicone 223-280-07wo/5ml Oral Liqd 30 Ml PO Q4H PRN Indigestion Lipase/Protease/Amylase 1 each 10/20/21 15:15 Lipase 10,500/Protease 25,000/Amylase 43,750 (Units) Dr Johnson FEEDTUBE PRN PRN For Clogged Feeding Tube Bisacodyl 10 mg 10/20/21 13:30 Bisacodyl 10 Mg Rect Supp [place] QDAY PRN constipation unrelieved by MOM Calcium Acetate 1,334 mg 10/23/21 08:00 10/27/21 10:18 Calcium Acetate 667 Mg Cap PO 1,334 mg TID ALBIN Administration Dextrose 50 ml 10/20/21 13:30 Dextrose 50% In Water (25gm) 50 Ml Syringe IV Q30MIN PRN Hypoglycemia Protocol Docusate Sodium 100 mg 10/26/21 11:00 10/27/21 10:18 Docusate Sodium 100 Mg/10 Ml Oral Liqd PO 100 mg BID ALBIN Administration Famotidine 10 mg 10/21/21 10:00 10/27/21 10:18 Famotidine 20 Mg/2 Ml Inj IV 10 mg BID ALBIN Administration Fentanyl 50 mcg 10/20/21 13:25 10/25/21 10:19 Fentanyl 100 Mcg/2 Ml Inj IV 50 mcg Q10MIN PRN Administration ANALGESIA Heparin Sodium (Porcine) 5,000 unit 10/20/21 10:41 10/21/21 17:19 Heparin 10,000 Units/10 Ml Vial IV 5,000 unit Q6H PRN Administration Anti-Xa Assay < 0.1 units/ml Hydrophilic Ointment 1 applic 10/20/21 13:25 Lip Therapy Vaseline TP Q2HR PRN Dry Lips Heparin Sodium/Sodium Chloride 25,000 unit in 500 mls @ 30 mls/hr 10/20/21 20:00 10/27/21 05:55 Heparin/ 0.45% Nacl-25,000 Unit/500 Ml IV 1,200 units/hr TITR ALBIN 24 mls/hr Administration Protocol 1,500 UNITS/HR Midazolam HCl 100 mg/ Sodium 100 mls @ 2 mls/hr 10/20/21 14:00 10/27/21 04:58 Chloride IV 8 mg/hr TITR ALBIN 8 mls/hr Administration Protocol 2 MG/HR Fentanyl Citrate 2,000 mcg in 100 mls @ 7.938 mls/hr 10/20/21 14:00 10/27/21 10:19 Fentanyl Drip Premix IV 4 mcg/kg/hr TITR ALBIN 31.751 mls/hr Administration Protocol 1 MCG/KG/HR Propofol 1,000 mg in 100 mls @ 4.763 mls/hr 10/20/21 14:00 10/27/21 10:19 Diprivan 10 Mg/Ml IV 50 mcg/kg/min TITR ALBIN 47.627 mls/hr Administration Protocol 5 MCG/KG/MIN Sodium Chloride 1,000 mls @ 1 mls/hr 10/20/21 14:30 Nacl 0.9% 500 Ml IV DIRECT PRN ARTERIAL LINE FLUSH Sodium Chloride 100 mls @ 999 mls/hr 10/22/21 11:48 Nacl 0.9% IV MAYLIN PRN Hypotension Dexmedetomidine HCl 400 mcg/ 104 mls @ 8.258 mls/hr 10/22/21 16:00 10/27/21 10:27 Sodium Chloride IV 0.9 mcg/kg/hr TITRATE ALBIN 37.159 mls/hr Administration Protocol 0.2 MCG/KG/HR NORepinephrine/NS 8 MG-250 ML 8 mg in 250 mls @ 3.75 mls/hr 10/22/21 18:00 10/23/21 08:20 Norepinephrine/Ns 8 Mg-250 Ml (Double Conc) IV 0 mcg/min TITRATE ALBIN 0 mls/hr Titration Protocol 2 MCG/MIN Cisatracurium Besylate 10 mg/ 100 mls @ 23.82 mls/hr 10/27/21 12:00 Sodium Chloride IV 10/28/21 23:59 TITR ALBIN Protocol 0.25 MCG/KG/MIN Insulin Glargine 35 units 10/25/21 22:00 10/26/21 21:41 Insulin Glargine 100 Units/Ml SUB-Q 35 units QHS ALBIN Administration Insulin Human Lispro 0 unit 10/24/21 18:00 10/27/21 05:54 Insulin Lispro 100 Unit/Ml SUB-Q 3 unit Q6HR ALBIN Administration Protocol Methylprednisolone Sodium Succinate 60 mg 10/22/21 14:00 10/27/21 05:54 Methylprednisolone Sod Succinate 125 Mg/2 Ml Inj IV 60 mg Q8HR ABLIN Administration Metoclopramide HCl 5 mg 10/24/21 08:00 10/27/21 05:54 Metoclopramide 10 Mg/2 Ml Inj IV 5 mg Q6HR ALBIN Administration Multi-Ingred Cream/Lotion/Oil/Oint 1 applic 10/20/21 13:25 Mineral Oil/Petrolatum, White Ophth Oint 3.5 Gm OU Q4HR PRN Dry Eye(s) Ondansetron HCl 4 mg 10/19/21 04:21 Ondansetron 4 Mg/2 Ml Inj IV Q8H PRN Nausea And Vomiting Promethazine HCl 25 mg 10/19/21 04:38 10/20/21 05:06 Promethazine 25 Mg Tab PO 25 mg Q6H PRN Administration Nausea And Vomiting Quetiapine Fumarate 100 mg 10/26/21 10:00 10/27/21 10:18 Quetiapine 100 Mg Tab PO 100 mg BID ALBIN Administration Senna 8.8 mg 10/20/21 22:00 10/27/21 10:18 Sennosides Oral Liqd 8.8 Mg/5 Ml Oral Liqd FEEDTUBE 8.8 mg BID ALBIN Administration Simple Syrup 15 ml 10/20/21 15:15 Simple Syrup 15 Ml FEEDTUBE PRN PRN Hypoglycemia Simple Syrup 30 ml 10/20/21 15:15 Simple Syrup 15 Ml FEEDTUBE PRN PRN Hypoglycemia Sodium Bicarbonate 325 mg 10/20/21 15:15 Sodium Bicarbonate 325 Mg Tab FEEDTUBE PRN PRN For Clogged Feeding Tube Sodium Chloride 10 ml 10/19/21 10:00 10/27/21 10:18 Sodium Chloride 0.9% 10 Ml Flush Syringe IV 10 ml BID ALBIN Administration Sodium Chloride 10 ml 10/19/21 04:26 Sodium Chloride 0.9% 10 Ml Flush Syringe IV PRN PRN flush prior to & after IV med Nutrition/Malnutrition Assess - Dietary Evaluation Nutrition/Malnutrition Findings: Nutrition Notes Start: 10/19/21 1 4:34 Freq: Status: Active Protocol: Document 10/27/21 10:14 REESE (Rec: 10/27/21 10:20 REESE [email or web address]) Nutrition Notes Initial or Follow up Reassessment Current Diagnosis Diabetes,Hypertension, Respiratory Failure Other Pertinent Diagnosis COVID-19 pneu, hepatic steatosis, asthma, gout, pulmonary embolism Current Diet TF - Nepro at 53ml/hr Labs/Tests Na 146 BUN 102 Cr 1.8 BG 207 Pertinent Medications Colace (RN reports no BM since admission), Propofol at 47. 627 ml/hr (provides 1257 kcal) , Cisatracurium besylate gtt Height 6 ft Weight 158.8 kg Elizabeth Body Weight (kg) 80.90 BMI 47.5 Weight Status Morbidly Obese Subjective/Other Information Gastric residuals remain > 300ml; TF continues at 10ml/hr . Pt remains on vent support; has not been tolerating vent. HD needs assessed on daily basis. Percent of energy/protein needs met: 77% energy 12% pro (includes kcal from propofol) Burn Absent Trauma Absent Minimum of two criteria No #1 Nutrition Diagnosis Inadequate oral intake Diagnosis Progress(for reassessment Continues documentation) Is patient on ventilator? Yes Is Patient Ambulatory and/or Out of Bed No REE-([facility]-confined to bed) [phone] Calculation Used for Recommendations 70-80% energy needs Additional Notes Energy needs: 5594-8360 kcal/ day Pro needs 1.3g/kg adjBW: 156g/ day Fluid needs 1ml/kcal Nutrition Intervention Nutrition Support: Continue Nepro at 10ml/hr; increase rate as tolerated to goal of 53ml/hr. Kcal 432 Protein (gm) 19 Goal #1 TF tolerance Goal #2 Increase TF to goal rate to meet nutrient needs as best possible Follow-Up By: 10/31/21 Additional Comments F/U: TF tolerance/rate increase, vent status, propofol, renal function <MOHSEN HANDY R - Last Filed: 10/29/21 11:33> Assessment and Plan Assessment and plan: I saw and evaluated the patient 10/27/21. I agree with the findings and the plan of care as documented in the Nurse Practitioner's~note, patient is critically ill with very poor prognosis. Hospitalist Physical - Constitutional Vitals: Temp Pulse Resp BP Pulse Ox 101.1 F H 163 H 0 L / 0 L 10/28/21 19:55 10/28/21 21:41 10/28/21 21:53 10/28/21 21:53 10/28/21 23:42 HEART Score - HEART Score Troponin: Troponin T < 0.010 ng/mL (0.00-0.029) 10/18/21 16:39 Results - Labs CBC & Chem 7: 10/28/21 07:09 10/28/21 07:09 Labs: Laboratory Last Values WBC 9.5 K/mm3 (4.5-11.0) 10/28/21 07:09 RBC 4.58 M/mm3 (3.65-5.03) 10/28/21 07:09 Hgb 11.5 gm/dl (11.8-15.2) L 10/28/21 07:09 Hct 36.7 % (35.5-45.6) 10/28/21 07:09 MCV 80 fl (84-94) L 10/28/21 07:09 MCH 25 pg (28-32) L 10/28/21 07:09 MCHC 31 % (32-34) L 10/28/21 07:09 RDW 16.3 % (13.2-15.2) H 10/28/21 07:09 Plt Count 357 K/mm3 (140-440) 10/28/21 07:09 Lymph % (Auto) 4.9 % (13.4-35.0) L 10/19/21 23:52 [place] % (Auto) 5.3 % (0.0-7.3) 10/19/21 23:52 Eos % (Auto) 0.0 % (0.0-4.3) 10/19/21 23:52 Baso % (Auto) 0.1 % (0.0-1.8) 10/19/21 23:52 Lymph # (Auto) 0.5 K/mm3 (1.2-5.4) L 10/19/21 23:52 [place] # (Auto) 0.5 K/mm3 (0.0-0.8) 10/19/21 23:52 Eos # (Auto) 0.0 K/mm3 (0.0-0.4) 10/19/21 23:52 Baso # (Auto) 0.0 K/mm3 (0.0-0.1) 10/19/21 23:52 Seg Neutrophils % 89.7 % (40.0-70.0) H 10/19/21 23:52 Seg Neutrophils # 8.9 K/mm3 (1.8-7.7) H 10/19/21 23:52 PT 14.8 Sec. (12.2-14.9) 10/20/21 13:30 INR 1.05 (0.87-1.13) 10/20/21 13:30 APTT 36.1 Sec. (24.2-36.6) 10/20/21 13:30 D-Dimer 1019.09 ng/mlDDU (0-234) H 10/23/21 04:45 Heparin Anti-Xa Level 0.35 U.I./ml (0.3-0.7) 10/28/21 07:09 ABG pH 7.281 pH Units (7.350-7.450) L 10/28/21 18:07 POC ABG pCO2 69.9 mmHg (32.0-48.0) H 10/21/21 09:34 ABG pCO2 57.6 mm Hg 10/28/21 18:07 POC ABG pO2 65.6 mmHg (83-108) L 10/21/21 09:34 ABG pO2 55.5 mm Hg (80.0-90.0) L 10/28/21 18:07 POC ABG HCO3 24.5 10/21/21 09:34 ABG HCO3 26.5 mmol/L (20.0-26.0) H 10/28/21 18:07 ABG O2 Saturation 82.7 % (95.0-99.0) L 10/28/21 18:07 ABG O2 Content 14.9 (0.0-44) 10/28/21 18:07 POC ABG Base Excess -5.4 10/21/21 09:34 ABG Base Excess -1.2 mmol/L (-2.0-3.0) 10/28/21 18:07 ABG Hemoglobin 13.1 gm/dl (14.0-18.0) L 10/28/21 18:07 ABG Oxyhemoglobin 89.7 (94-98) L 10/21/21 09:34 ABG Carboxyhemoglobin 1.6 % (0.0-5.0) 10/28/21 18:07 ABG Methemoglobin 0.7 % (0.0-1.5) 10/28/21 18:07 ABG Sodium 138.1 mmol/L (136.0-145.0) 10/21/21 09:34 ABG Potassium 6.5 mmol/L (3.40-4.50) H 10/21/21 09:34 ABG Chloride 102.0 mmol/L (98-107) 10/21/21 09:34 ABG Glucose 190 mg/dL (65-95) H 10/21/21 09:34 Oxyhemoglobin 80.8 % (95.0-99.0) L 10/28/21 18:07 Carboxyhemoglobin 0.4 (0.5-1.5) L 10/21/21 09:34 FiO2 100 % 10/28/21 18:07 FiO2 % 100.0 10/21/21 09:34 Sodium 156 mmol/L (137-145) H D 10/28/21 07:09 Potassium 5.5 mmol/L (3.6-5.0) H 10/28/21 07:09 Chloride 117.3 mmol/L (98-107) H 10/28/21 07:09 Carbon Dioxide 26 mmol/L (22-30) 10/28/21 07:09 Anion Gap 18 mmol/L 10/28/21 07:09 BUN 66 mg/dL (9-20) H 10/28/21 07:09 Creatinine 1.0 mg/dL (0.8-1.3) 10/28/21 07:09 Estimated GFR > 60 ml/min 10/28/21 07:09 BUN/Creatinine Ratio 66 % 10/28/21 07:09 Glucose 145 mg/dL (75-100) H 10/28/21 07:09 POC Glucose 375 mg/dL (70-105) H 10/28/21 21:29 Hemoglobin A1c 7.9 % (4-6) H 10/19/21 23:52 Lactic Acid 1.40 mmol/L (0.7-2.0) 10/18/21 16:39 Calcium 8.8 mg/dL (8.4-10.2) 10/28/21 07:09 Phosphorus 11.10 mg/dL (2.5-4.5) H 10/24/21 05:30 Magnesium 2.80 mg/dL (1.7-2.3) H 10/24/21 05:30 Ferritin 1307.0 ng/mL (30.0-300.0) H 10/24/21 05:30 Total Bilirubin 0.20 mg/dL (0.1-1.2) 10/24/21 05:30 AST 79 units/L (5-40) H 10/24/21 05:30 ALT 171 units/L (7-56) H 10/24/21 05:30 Alkaline Phosphatase 73 units/L (35-129) 10/24/21 05:30 Lactate Dehydrogenase 712 units/L (91-180) H 10/23/21 04:45 Total Creatine Kinase 1484 units/L (55-170) H 10/18/21 16:39 CK-MB (CK-2) 3.3 ng/mL (0.0-4.0) 10/18/21 16:39 CK-MB (CK-2) Rel Index 0.2 (0-4) 10/18/21 16:39 Troponin T < 0.010 ng/mL (0.00-0.029) 10/18/21 16:39 C-Reactive Protein 6.40 mg/dL (0.00-1.30) H 10/23/21 04:45 Total Protein 6.9 g/dL (6.3-8.2) 10/24/21 05:30 Albumin 3.2 g/dL (3.9-5) L 10/24/21 05:30 Albumin/Globulin Ratio 0.9 % 10/24/21 05:30 Triglycerides 392 mg/dL (2-149) H 10/27/21 04:20 Lipase 15 units/L (13-60) 10/18/21 16:39 Procalcitonin 0.49 ng/mL (<0.15) 10/19/21 23:52 Arterial Blood Glucose 190 mg/dL (65-95) H 10/21/21 09:34 Arterial Blood Ionized Calcium 4.2 mg/dL (4.6-5.3) L 10/21/21 09:34 Urine Color Yellow (Yellow) 10/28/21 10:10 Urine Turbidity Cloudy (Clear) 10/28/21 10:10 Urine pH 5.0 (5.0-7.0) 10/28/21 10:10 Ur Specific [place] 1.015 (1.003-1.030) 10/28/21 10:10 Urine Protein <15 mg/dl mg/dL (Negative) 10/28/21 10:10 Urine Glucose (UA) Neg mg/dL (Negative) 10/28/21 10:10 Urine Ketones Neg mg/dL (Negative) 10/28/21 10:10 Urine Blood Mod (Negative) 10/28/21 10:10 Urine Nitrite Neg (Negative) 10/28/21 10:10 Urine Bilirubin Neg (Negative) 10/28/21 10:10 Urine Urobilinogen < 2.0 mg/dL (<2.0) 10/28/21 10:10 Ur Leukocyte Esterase Neg (Negative) 10/28/21 10:10 Urine WBC (Auto) 3.0 /HPF (0.0-6.0) 10/28/21 10:10 Urine RBC (Auto) 71.0 /HPF (0.0-6.0) 10/28/21 10:10 U Epithel Cells (Auto) < 1.0 /HPF (0-13.0) 10/28/21 10:10 Urine Bacteria (Auto) 1+ /HPF (Negative) 10/18/21 22:26 Urine Yeast (Budding) 1+ /HPF 10/28/21 10:10 Urine Creatinine 153.1 mg/dL (0.1-20.0) H 10/21/21 Unknown Urine Sodium 31 mmol/L 10/21/21 Unknown Urine Total Protein 173 mg/dL (5-11.8) H 10/21/21 Unknown Coronavirus (PCR) Positive (Negative) A 10/19/21 08:24 Hepatitis A IgM Ab Non-reactive (NonReactive) 10/19/21 23:52 Hep Bs Antigen Nonreactive (Negative) 10/19/21 23:52 Hep B Core IgM Ab Non-reactive (NonReactive) 10/19/21 23:52 Hepatitis C Antibody Non-reactive (NonReactive) 10/19/21 23:52 Microbiology: Microbiology 10/28/21 12:32 Tracheal Aspirate Sputum Culture - Preliminary 10/28/21 09:45 Peripheral/Venous Blood Culture - Preliminary Culture in Progress 10/28/21 09:11 Peripheral/Venous Blood Culture - Preliminary Culture in Progress Scott/IV: Voiding Method Indwelling Catheter Nutrition/Malnutrition Assess - Dietary Evaluation Nutrition/Malnutrition Findings: Nutrition Notes Start: 10/19/21 14:34 Freq: Status: Discharge Protocol: Document 10/27/21 10:14 REESE (Rec: 10/27/21 10:20 REESE [id number]) Nutrition Notes Initial or Follow up Reassessment Current Diagnosis Diabetes,Hypertension, Respiratory Failure Other Pertinent Diagnosis COVID-19 pneu, hepatic steatosis, asthma, gout, pulmonary embolism Current Diet TF - Nepro at 53ml/hr Labs/Tests Na 146 BUN 102 Cr 1.8 BG 207 Pertinent Medications Colace (RN reports no BM since admission), Propofol at 47. 627 ml/hr (provides 1257 kcal) , Cisatracurium besylate gtt Height 6 ft Weight 158.8 kg Elizabeth Body Weight (kg) 80.90 BMI 47.5 Weight Status Morbidly Obese Subjective/Other Information Gastric residuals remain > 300ml; TF continues at 10ml/hr . Pt remains on vent support; has not been tolerating vent. HD needs assessed on daily basis. Percent of energy/protein needs met: 77% energy 12% pro (includes kcal from propofol) Burn Absent Trauma Absent Minimum of two criteria No #1 Nutrition Diagnosis Inadequate oral intake Diagnosis Progress(for reassessment Continues documentation) Is patient on ventilator? Yes Is Patient Ambulatory and/or Out of Bed No REE-([facility]-confined to bed) [phone] Calculation Used for Recommendations 70-80% energy needs Additional Notes Energy needs: 2026-7848 kcal/ day Pro needs 1.3g/kg adjBW: 156g/ day Fluid needs 1ml/kcal Nutrition Intervention Nutrition Support: Continue Nepro at 10ml/hr; increase rate as tolerated to goal of 53ml/hr. Kcal 432 Protein (gm) 19 Goal #1 TF tolerance Goal #2 Increase TF to goal rate to meet nutrient needs as best possible Follow-Up By: 10/31/21 Additional Comments F/U: TF tolerance/rate increase, vent status, propofol, renal function
[2021-10-27] MEDS: MINERAL OIL/PETROLATUM, WHITE OPHTH OINT 3.5 GM OU PRN (12:35)
--- NOTE | 2021-10-27 13:32 | Electrocardiograph Report ---
[facility] Test Date: 2021-10-27 Test Time: 07:11:14 Pat Name: DONNA WALKER Department: Room: A254 1 Gender: M Radiologic Therapist: MAME : 1995 Requested By: JOAN SERRANO Order Number: [id number] Reading MD: Steve Temple Measurements Intervals [place] Rate: 78 P: 50 VA: 161 QRS: 20 QRSD: 82 T: 65 QT: 388 QTc: 442 Interpretive Statements Sinus rhythm Normal ECG Compared to ECG 10/25/2021 13:51:55 No significant changes Electronically Signed On 10-27-2021 13:32:10 EST by Steve Temple
[2021-10-27] MEDS ORDERED: ROCURONIUM 50 MG/5 ML INJ IV ONE (15:00)
--- NOTE | 2021-10-27 18:14 | Progress Note ---
Assessment and Plan Assessment: Nonliguric acute kidney injury secondary to ATN COVID 19 PNA Acute hypoxic/hypercapnic respiratory failure secondary to COVID 19 PNA vs PE Acute pulmonary embolus Respiratory acidosis w/ inadequate metabolic compensation Hyperkalemia Hypernatremia Plan: UOP improved - 5 liters yesterday; continued decline in SCr noted. Patient with evidence of renal recover Discontinue hemodialysis Hypernatremia noted - needs free water; will order 250ml [id number] Vent management per pulmonary/critical care Anticoagulation per primary team Management of COVID 19 infection per ID Dose medications for renal function Avoid potential nephrotoxins Subjective Date of service: 10/27/21 Principal diagnosis: phan Interval history: Chart, vitals, labs reviewed Objective - Exam Narrative Exam: To reduce transmission of disease, physical exam deferred in setting of COVID 19 pandemic - Vital Signs Vital signs: Vital Signs - 12hr 10/27/21 10/27/21 10/27/21 06:15 06:29 06:30 Temperature 99.4 F Pulse Rate 81 80 Pulse Rate [ From Monitor] Respiratory 30 H 30 H Rate Blood Pressure 130/71 128/68 O2 Sat by Pulse 93 93 Oximetry 10/27/21 10/27/21 10/27/21 06:45 07:00 07:15 Temperature 100.9 F H Pulse Rate 78 79 78 Pulse Rate [ From Monitor] Respiratory 32 H 29 H 30 H Rate Blood Pressure 131/67 140/76 142/73 O2 Sat by Pulse 93 93 94 Oximetry 10/27/21 10/27/21 10/27/21 07:30 07:45 08:00 Temperature Pulse Rate 77 76 76 Pulse Rate [ 79 From Monitor] Respiratory 29 H 30 H 30 H Rate Blood Pressure 143/75 146/80 142/79 O2 Sat by Pulse 94 93 93 Oximetry 10/27/21 10/27/21 10/27/21 08:15 08:30 08:45 Temperature Pulse Rate 76 76 76 Pulse Rate [ From Monitor] Respiratory 24 42 H 34 H Rate Blood Pressure 141/75 150/76 160/79 O2 Sat by Pulse 93 83 L 93 Oximetry 10/27/21 10/27/21 10/27/21 09:00 09:15 09:25 Temperature Pulse Rate 75 76 74 Pulse Rate [ From Monitor] Respiratory 25 H 30 H Rate Blood Pressure 156/82 154/83 162/68 O2 Sat by Pulse 94 95 95 Oximetry 10/27/21 10/27/21 10/27/21 09:30 09:45 10:00 Temperature Pulse Rate 73 75 74 Pulse Rate [ From Monitor] Respiratory 43 H 32 H 32 H Rate Blood Pressure 142/85 151/84 155/84 O2 Sat by Pulse 89 93 94 Oximetry 10/27/21 10/27/21 10/27/21 10:15 10:30 10:45 Temperature Pulse Rate 74 75 74 Pulse Rate [ From Monitor] Respiratory 34 H 32 H 33 H Rate Blood Pressure 151/84 153/82 149/82 O2 Sat by Pulse 94 95 94 Oximetry 10/27/21 10/27/21 10/27/21 11:00 11:15 11:30 Temperature Pulse Rate 73 73 74 Pulse Rate [ From Monitor] Respiratory 33 H 31 H 32 H Rate Blood Pressure 155/84 155/80 151/83 O2 Sat by Pulse 93 94 94 Oximetry 10/27/21 10/27/21 10/27/21 11:33 11:45 12:00 Temperature 98.4 F Pulse Rate 74 75 Pulse Rate [ 82 From Monitor] Respiratory 32 H 32 H Rate Blood Pressure 151/79 162/61 O2 Sat by Pulse 94 93 Oximetry 10/27/21 10/27/21 10/27/21 12:15 12:30 12:45 Temperature Pulse Rate 75 74 74 Pulse Rate [ From Monitor] Respiratory 32 H 32 H 33 H Rate Blood Pressure 148/80 150/80 151/78 O2 Sat by Pulse 93 94 92 Oximetry 10/27/21 10/27/21 10/27/21 13:00 13:15 13:30 Temperature Pulse Rate 75 76 76 Pulse Rate [ From Monitor] Respiratory 32 H 31 H 31 H Rate Blood Pressure 152/79 147/73 145/76 O2 Sat by Pulse 92 93 92 Oximetry 10/27/21 10/27/21 10/27/21 13:45 14:00 14:15 Temperature Pulse Rate 75 75 78 Pulse Rate [ From Monitor] Respiratory 31 H 31 H 41 H Rate Blood Pressure 150/72 145/71 153/88 O2 Sat by Pulse 92 92 90 Oximetry 10/27/21 10/27/21 10/27/21 14:30 14:45 14:50 Temperature Pulse Rate 73 78 Pulse Rate [ From Monitor] Respiratory 40 H 34 H Rate Blood Pressure 146/72 152/71 O2 Sat by Pulse 78 L 75 L 79 L Oximetry 10/27/21 10/27/21 10/27/21 15:00 15:16 15:30 Temperature Pulse Rate 78 77 78 Pulse Rate [ From Monitor] Respiratory 34 H 31 H 18 Rate Blood Pressure 138/72 125/62 146/72 O2 Sat by Pulse 88 92 91 Oximetry 10/27/21 10/27/21 10/27/21 15:45 16:00 16:09 Temperature Pulse Rate 82 79 80 Pulse Rate [ 76 From Monitor] Respiratory 24 29 H Rate Blood Pressure 128/66 131/61 145/58 O2 Sat by Pulse 92 89 99 Oximetry 10/27/21 10/27/21 10/27/21 16:15 16:30 16:45 Temperature 100.1 F H Pulse Rate 81 78 77 Pulse Rate [ From Monitor] Respiratory 20 29 H 29 H Rate Blood Pressure 143/76 148/77 145/79 O2 Sat by Pulse 89 91 92 Oximetry 10/27/21 10/27/21 17:00 17:15 Temperature Pulse Rate 76 77 Pulse Rate [ From Monitor] Respiratory 27 H 28 H Rate Blood Pressure 151/80 142/74 O2 Sat by Pulse 92 92 Oximetry - Lab 10/27/21 04:20 10/27/21 04:20 Most recent lab results ABG pH 7.419 pH Units (7.350-7.450) 10/27/21 04:35 ABG pCO2 42.1 mm Hg 10/27/21 04:35 ABG pO2 61.3 mm Hg (80.0-90.0) L 10/27/21 04:35 ABG HCO3 26.6 mmol/L (20.0-26.0) H 10/27/21 04:35 ABG O2 Saturation 91.3 % (95.0-99.0) L 10/27/21 04:35 Calcium 7.9 mg/dL (8.4-10.2) L 10/27/21 04:20 Phosphorus 11.10 mg/dL (2.5-4.5) H 10/24/21 05:30 Magnesium 2.80 mg/dL (1.7-2.3) H 10/24/21 05:30 Urine Creatinine 153.1 mg/dL (0.1-20.0) H 10/21/21 Unknown Urine Sodium 31 mmol/L 10/21/21 Unknown Urine Total Protein 173 mg/dL (5-11.8) H 10/21/21 Unknown Medications & Allergies - Medications Allergies/Adverse Reactions: Allergies No Known Allergies Allergy (Unverified 10/18/21 16:14) Home Medications: Home Medications Medication Instructions Recorded Confirmed Last Taken Type metFORMIN [Glucophage] 500 mg PO BID 10/20/21 10/20/21 Unknown History Active Medications: Generic Name Dose Route Start Last Admin Trade Name Freq PRN Reason Stop Dose Admin Acetaminophen 650 mg 10/20/21 13:30 10/27/21 04:02 Acetaminophen 325 Mg/10.15 Ml Oral Liqd Unit Dose FEEDTUBE 650 mg Q6H PRN Administration Pain MILD(1-3)/Fever >100.5/HUSSEIN Al Hydrox/Mg Hydrox/Simethicone 30 ml 10/20/21 13:30 Alum-Mag Hydroxide-Simethicone [phone]/5ml Oral Liqd 30 Ml PO Q4H PRN Indigestion Lipase/Protease/Amylase 1 each 10/20/21 15:15 Lipase 10,500/Protease 25,000/Amylase 43,750 (Units) Dr Johnson FEEDTUBE PRN PRN For Clogged Feeding Tube Bisacodyl 10 mg 10/20/21 13:30 Bisacodyl 10 Mg Rect Supp AL QDAY PRN constipation unrelieved by MOM Calcium Acetate 1,334 mg 10/23/21 08:00 10/27/21 14:26 Calcium Acetate 667 Mg Cap PO 1,334 mg TID ALBIN Administration Dextrose 50 ml 10/20/21 13:30 Dextrose 50% In Water (25gm) 50 Ml Syringe IV Q30MIN PRN Hypoglycemia Protocol Docusate Sodium 100 mg 10/26/21 11:00 10/27/21 10:18 Docusate Sodium 100 Mg/10 Ml Oral Liqd PO 100 mg BID ALBIN Administration Famotidine 10 mg 10/21/21 10:00 10/27/21 10:18 Famotidine 20 Mg/2 Ml Inj IV 10 mg BID ALBIN Administration Fentanyl 50 mcg 10/20/21 13:25 10/25/21 10:19 Fentanyl 100 Mcg/2 Ml Inj IV 50 mcg Q10MIN PRN Administration ANALGESIA Heparin Sodium (Porcine) 5,000 unit 10/20/21 10:41 10/21/21 17:19 Heparin 10,000 Units/10 Ml Vial IV 5,000 unit Q6H PRN Administration Anti-Xa Assay < 0.1 units/ml Hydrophilic Ointment 1 applic 10/20/21 13:25 Lip Therapy Vaseline TP Q2HR PRN Dry Lips Heparin Sodium/Sodium Chloride 25,000 unit in 500 mls @ 30 mls/hr 10/20/21 20:00 10/27/21 05:55 Heparin/ 0.45% Nacl-25,000 Unit/500 Ml IV 1,200 units/hr TITR ALBIN 24 mls/hr Administration Protocol 1,500 UNITS/HR Midazolam HCl 100 mg/ Sodium 100 mls @ 2 mls/hr 10/20/21 14:00 10/27/21 17:21 Chloride IV 8 mg/hr TITR ALBIN 8 mls/hr Administration Protocol 2 MG/HR Fentanyl Citrate 2,000 mcg in 100 mls @ 7.938 mls/hr 10/20/21 14:00 10/27/21 15:17 Fentanyl Drip Premix IV 4 mcg/kg/hr TITR ALBIN 31.751 mls/hr Administration Protocol 1 MCG/KG/HR Propofol 1,000 mg in 100 mls @ 4.763 mls/hr 10/20/21 14:00 10/27/21 16:13 Diprivan 10 Mg/Ml IV 50 mcg/kg/min TITR ALBIN 47.627 mls/hr Administration Protocol 5 MCG/KG/MIN Sodium Chloride 1,000 mls @ 1 mls/hr 10/20/21 14:30 Nacl 0.9% 500 Ml IV DIRECT PRN ARTERIAL LINE FLUSH Dexmedetomidine HCl 400 mcg/ 104 mls @ 8.258 mls/hr 10/22/21 16:00 10/27/21 17:22 Sodium Chloride IV 0.9 mcg/kg/hr TITRATE ALBIN 37.159 mls/hr Administration Protocol 0.2 MCG/KG/HR NORepinephrine/NS 8 MG-250 ML 8 mg in 250 mls @ 3.75 mls/hr 10/22/21 18:00 10/23/21 08:20 Norepinephrine/Ns 8 Mg-250 Ml (Double Conc) IV 0 mcg/min TITRATE ALBIN 0 mls/hr Titration Protocol 2 MCG/MIN Cisatracurium Besylate 10 mg/ 100 mls @ 23.82 mls/hr 10/27/21 12:00 Sodium Chloride IV 10/28/21 23:59 TITR ALBIN Protocol 0.25 MCG/KG/MIN Insulin Glargine 35 units 10/25/21 22:00 10/26/21 21:41 Insulin Glargine 100 Units/Ml SUB-Q 35 units QHS ALBIN Administration Insulin Human Lispro 0 unit 10/24/21 18:00 10/27/21 12:35 Insulin Lispro 100 Unit/Ml SUB-Q 4 unit Q6HR ALBIN Administration Protocol Methylprednisolone Sodium Succinate 60 mg 10/22/21 14:00 10/27/21 14:26 Methylprednisolone Sod Succinate 125 Mg/2 Ml Inj IV 60 mg Q8HR ALBIN Administration Metoclopramide HCl 5 mg 10/24/21 08:00 10/27/21 13:00 Metoclopramide 10 Mg/2 Ml Inj IV 5 mg Q6HR ALBIN Administration Multi-Ingred Cream/Lotion/Oil/Oint 1 applic 10/20/21 13:25 10/27/21 12:35 Mineral Oil/Petrolatum, White Ophth Oint 3.5 Gm OU 1 applic Q4HR PRN Administration Dry Eye(s) Ondansetron HCl 4 mg 10/19/21 04:21 Ondansetron 4 Mg/2 Ml Inj IV Q8H PRN Nausea And Vomiting Promethazine HCl 25 mg 10/19/21 04:38 10/20/21 05:06 Promethazine 25 Mg Tab PO 25 mg Q6H PRN Administration Nausea And Vomiting Quetiapine Fumarate 100 mg 10/26/21 10:00 10/27/21 10:18 Quetiapine 100 Mg Tab PO 100 mg BID ALBIN Administration Senna 8.8 mg 10/20/21 22:00 10/27/21 10:18 Sennosides Oral Liqd 8.8 Mg/5 Ml Oral Liqd FEEDTUBE 8.8 mg BID ALBIN Administration Simple Syrup 15 ml 10/20/21 15:15 Simple Syrup 15 Ml FEEDTUBE PRN PRN Hypoglycemia Simple Syrup 30 ml 10/20/21 15:15 Simple Syrup 15 Ml FEEDTUBE PRN PRN Hypoglycemia Sodium Bicarbonate 325 mg 10/20/21 15:15 Sodium Bicarbonate 325 Mg Tab FEEDTUBE PRN PRN For Clogged Feeding Tube Sodium Chloride 10 ml 10/19/21 10:00 10/27/21 10:18 Sodium Chloride 0.9% 10 Ml Flush Syringe IV 10 ml BID ALBIN Administration Sodium Chloride 10 ml 10/19/21 04:26 Sodium Chloride 0.9% 10 Ml Flush Syringe IV PRN PRN flush prior to & after IV med
[2021-10-27] MEDS: INSULIN GLARGINE 100 UNITS/ML SUB-Q SCH (21:11)
[2021-10-27] MEDS: FREE WATER PO SCH (21:13)
[2021-10-27] MEDS ORDERED: CALCIUM CHLORIDE 1,000 MG/10 ML SYRINGE IV ONE (21:30)
[2021-10-27] MEDS ORDERED: EPINEPHrine 1 MG/10 ML SYRINGE ONE (21:30)
[2021-10-27] MEDS ORDERED: SODIUM BICARB 8.4% 50 MEQ/50 ML SYRINGE IV ONE (21:30)
[2021-10-28] MEDS: METOCLOPRAMIDE 10 MG/2 ML INJ IV SCH ×4 (00:19→17:31)
[2021-10-28] MEDS: INSULIN LISPRO 100 UNIT/ML SUB-Q SCH ×4 (00:19→17:31)
[2021-10-28] MEDS: fentaNYL DRIP Premix 2,000 MCG/100 ML BAG IV SCH ×7 (00:48→19:04)
[2021-10-28] MEDS: FREE WATER PO SCH ×6 (00:50→17:33)
[2021-10-28] MEDS: HEPARIN/ 0.45% NACL DRIP 25,000 UNIT/500 ML BAG IV SCH (03:11)
[2021-10-28] MEDS: CISATRACURIUM 10 MG in SODIUM CHLORIDE 0.9% 95 ML IV SCH ×6 (03:12→20:08)
[2021-10-28] MEDS: MIDAZOLAM 100 MG in SODIUM CHLORIDE 0.9% 80 ML IV SCH ×2 (05:23→16:43)
[2021-10-28 06:25] LABS: ABG Base Excess 2.8 mmol/L (-2.0-3.0); ABG HCO3 28.1 mmol/L (20.0-26.0); ABG Methemoglobin 0.5 % (0.0-1.5); ABG Oxygen Saturation 88.6 % (95.0-99.0); ABG PCO2 45.9 mm Hg; ABG PH 7.404 pH Units (7.350-7.450); ABG PO2 56.1 mm Hg (80.0-90.0)
[2021-10-28] MEDS: methylPREDNISolone Sod Succinate 125 MG/2 ML INJ IV SCH ×2 (06:37→13:15)
[2021-10-28 08:19] LABS: Hematocrit 36.7 % (35.5-45.6); Hemoglobin 11.5 gm/dl (11.8-15.2); Mean Corpuscular HGB Conc 31 % (32-34); Mean Corpuscular Volume 80 fl (84-94); Platelet Count 357 K/mm3 (140-440); Red Blood Count 4.58 M/mm3 (3.65-5.03); Red Cell Distribution Width 16.3 % (13.2-15.2)
[2021-10-28] MEDS: CALCIUM ACETATE 667 MG CAP PO SCH ×2 (08:28→13:16)
[2021-10-28 08:32] LABS: BUN/Creatinine Ratio 66; Blood Urea Nitrogen 66 mg/dL (9-20); Calcium 8.8 mg/dL (8.4-10.2); Hemolysis Index 4
[2021-10-28] MEDS ORDERED: SODIUM POLYSTYRENE 15 GM/60 ML ORAL LIQD PO SCH (09:00)
[2021-10-28] MEDS: SENNOSIDES ORAL LIQD 8.8 MG/5 ML ORAL LIQD FEEDTUBE SCH (09:02)
[2021-10-28] MEDS: QUEtiapine 100 MG TAB PO SCH (09:02)
[2021-10-28] MEDS: DOCUSATE SODIUM 100 MG/10 ML ORAL LIQD PO SCH (09:03)
[2021-10-28] MEDS ORDERED: FAMOTIDINE 20 MG/2 ML INJ IV SCH (10:00)
[2021-10-28 11:13] LABS: Bilirubin,Urine NEG (Negative); Blood,Urine MOD (Negative); Color,Urine Yellow (Yellow); Protein,Urine <15 mg/dL mg/dL (Negative); Urobilinogen,Urine < 2.0 mg/dL (<2.0)
--- NOTE | 2021-10-28 11:32 | Progress Note ---
<JOAN SERRANO - Last Filed: 10/28/21 20:01> Assessment and Plan Assessment and plan: This is a 26-year-old male with HTN, DM, asthma and gout admitted with COVID-19 pneumonia and pulmonary embolism. Hospital Course to Date: 10/19: Patient is currently anxious and restless with moderate respiratory distress. He is hypoxic and needing nasal cannula to and NRB alternately. BP and pulse stable. Patient has dry cough. Afebrile. No acute GI symptoms currently. 10/20: Patient was a code met from the floor to ICU. Patient was initially placed on BiPAP however due to his anxiety he was unable to tolerate and ultimately was intubated. Patient is currently sedated on fentanyl and Versed. Central line and Scott catheter placed today. Bilateral respirations in place. and mother updated at bedside today. 10/21: BUN/Cr increase noted and nephro consulted. Nephro will like to start HD. Femoral vascath placement delayed d/t elevated aPTT and renal US. CCM made changes to vent. Hyperkalemia medically treated. and mother updated at bedside by STAKE SETTER. Vascath and noemí placed. HD RN aware 10/22: HD planned for today, steroids changed to Solu-Medrol 60 every 8 and long-acting insulin. Patient is stacking breaths and SPO2 in the upper 80s. We will add Precedex for increased sedation. Increasing FiO2 due to desaturation overnight. 10/23: Nephrology will medically treat potassium and HD tomorrow, increase in vent settings overnight due to hypoxia. Remains sedated on Precedex, fentanyl, Versed and propofol. Increase in Lantus today, tube feedings held due to high residuals, increase in total volume. and mother updated at bedside today. HD removed 3 L of fluid yesterday per HD nurse documentation. 10/24: Patient remains intubated and sedated, RASS -4. Remains hyperkalemic this am, HD at the bedside, K to be corrected, will repeat BMP in 4 to 6hrs. TF re julieta on hold due to high residual, no vomiting. IV reglan initiated, will do trickle feeds for now and reassess in the am. 10/25: Patient melody down into the 40s overnight, precedex gtt held. s/p X1 dose of IVP Robert this am for vent synchrony. Plan for possible nimbex gtt for 48hrs. Patient is still hyperkalemic this am, no intervention at this time per Nephro plan for HD tomorrow. Basal dose lantus was increased for tighter glycemic control. 10/26: Patient now on nimbex gtt fro vent synchrony, patient RR remains in the 30s, SPO2 at 97%. Patient also remains on sedation, seroquel was added to achieve RASS goal. Patient still with high gastric residual despite schedule reglan and BR, per nursing patient with no BM since admit, colace added. Renal function and hyperkalemia improved this am, no HD today per Nephro. 10/27: Remains on the vent, sedated, and on low dose paralytic. Continue to decompensate, SPO2 in the 60 to 70s when not sedated/paralized. D/w CCM okay to continue paralytic for another 48hrs. Renal function continue to improve, hypernatremia noted this am, FWF increased. Repeat lab in the am 10/28: Remains on full support on the vent, sedated and on paralytic. Still on heparin gtt for PE. Persistent fevers overnight, wbcs normal, patient completed IV Abx course, ID signed off. Will panculture and hold off on IV Abx for now. PRN Hydralazine added for high blood pressur. Renal function with significant improvement, high K treated and FWF increased for hypernatremia, repeat labs in the am. Assessment and Plan #Neuro:Sedated #H/o Anxiety - Intubated and sedated - Currently sedated on propofol, fentanyl, Versed, and precedex gtts - s/p IV ROBERT pushes - Now on Nimbex gtt added for vent synchrony - Seroquel was also initiated - Close monitoring of QTc - Plan to possibly initiated nimbex gtt for vent synchrony - Bilateral soft restraints in place for safety - Avoid delirium - Maintain sleep-wake cycle #Cardio:Hypertension #Cardiomegaly #Bradycardia #h/o HTN -CTA chest showed mild cardiomegaly without evidence of right heart strain -10/25 HR dropped in the 40s overnight, probably related to precedex gtt vs Vagal response -Hold home antihypertensive regimen -Blood pressure monitoring per protocol -Echo shows Normal echocardiogram, LV EF within normal range of 50 to 55%, mild diastolic dysfunction evidenced by impaired relaxation pattern, no pericardial effusion -Hypertensive today, PRN hydralazine added for SBP greater than 160 #Respiratory: Acute hypoxic respiratory failure 2/2 COVID vs PE #ARDS #COVID PNA #Pulmonary embolism #h/o asthma -S/p BiPAP and OptiFlow/nonrebreather -CCM consulted, appreciate recommendations -Intubated on 10/20 with 8.00 ETT at 24 cm at the right lip -Vent Setting: A/C- 100%,18,18, 30/60 -This am ABG noted -Wean Fio2 as torerated -VAP bundle addressed -Aspiration precaution HOB above 30 -Daily SBT and SAT trials as tolerated -Daily ABG and CXR -Continue SPO2 monitoring for SPO2 goal above 92% #GI:Transaminitis #Hepatic steatosis #Morbid obesity -CTA chest showed hepatic steatosis -Nutrition consult for tube feeding -Reglan started -Continue Trickle feeds for now still with high gastric residual, 300cc overnight -No Bm since admit -BR: Senokot, Colace added -PPI -Acute hepatitis panel negative #:Acute renal injury most likely ATN #Hypernatremia #Hyperkalemia-improved #Rhabdomyolysis -Cr/BUN 0.8/20 and increased to 2.3/43 -10/21 prompting renal consult and initiation of dialysis -nephrology consulted, appreciate recommendations -renal US in progress -10/21 FeNa at 0.4 indicating prerenal -HD to be initiated 10/21 -HD per nephrology -Renal function continue to improve -No more HD per Nephro -FWF increased for high Na -X1 dose of Kayaxalate for high K -Strict intake and output with Scott catheter -Intervene with electrolytes as needed -Trend BMP #ID: COVID-19 pneumonia and influenza -CTA chest showed bilateral lung infiltrates concerning for atypical pneumonia -Infectious disease signed off -Patient febrile overnight -Orders placed for blood culture, sputum culture,and UA -No leukocytosis, will hold off on IV Abx for now -Continue IV dexamethasone for 10 days () -S/p Actemra 10/20/2021 -Tamiflu for 5 days () -10/19 Procal 0.49 -Antibiotic therapy: Azithromycin (), Rocephin (10/19 -10/23) -S/p IV remdesivir x1 on 10/20 -Trend COVID-19 inflammatory markers -Anticoagulation for pulmonary embolism -If fever persist or with spike in WBCs will reconsult ID #Endo: Hyperglycemia #h/o DM -Hemoglobin A1c 7.9 -Patient is on steroids -Continue SSI and Accu-Cheks every 6 -On Lantus Qhs -Avoid hypoglycemia -While critically ill target blood glucose of 140-180 #Heme: Pulmonary embolism -CTA chest showed pulmonary embolus without evidence of right heart strain -Systemic anticoagulation with heparin drip per protocol -Bilateral lower extremity SCDs while in bed -Trend CBC -Transfuse for hemoglobin less than 7 The high probability of a clinically significant, sudden or life threatening deterioration of the [Neuro, Respiratory, ] system(s) required my full and direct attention, intervention and personal management. The aggregate critical care time was [60] minutes. This time is in addition to time spent performing reported procedures but includes the following: [x] Data Review and interpretation [x] Patient assessment and monitoring of vital signs [x] Documentation [x] Medication orders and management Disposition Plan: ICU Total Time Spent with Patient (Minutes): 60 History Interval history: Patient seen and examined at the bedside. Intubated and sedated, on propofol, versede, fentanyl, and precedex gtt. Still on nimbex and heparin gtt. Remains with periods of desaturation overnight Hospitalist Physical - Constitutional Vitals: Temp Pulse Resp BP Pulse Ox 101.2 F H 65 20 177/90 98 10/28/21 07:13 10/28/21 10:30 10/28/21 10:30 10/28/21 10:30 10/28/21 10:30 General appearance: Present: mild distress, obese (Morbid obese with BMI 47), other (Intubated and sedated) - EENT Eyes: Present: PERRL - Respiratory Respiratory effort: labored, accessory muscle use Respiratory: bilateral: rhonchi - Cardiovascular Rhythm: regular Heart Sounds: Present: S1 & S2 - Extremities Extremities: no ischemia, pulses intact, pulses symmetrical Extremity abnormal: edema - Peripheral Assessment Generalized Edema Type: Non-pitting Edema Degree: 2+ Capillary Refill: < 3 seconds Skin Temperature: Warm Peripheral Pulses: within normal limits - Abdominal General gastrointestinal: soft, non-tender, hypoactive bowel sounds - Integumentary Integumentary: Present: warm, dry - Psychiatric Psychiatric: other (Intubated and sedated) - Neurologic Neurologic: other (Intubated and sedated) - Allied Health Allied health notes reviewed: nursing HEART Score - HEART Score EKG: Normal Age: < 45 Risk factors: 1-2 risk factors Troponin: Troponin T < 0.010 ng/mL (0.00-0.029) 10/18/21 16:39 Troponin: < normal limit - Critical Actions Critical Actions: 0-3 pts:0.9-1.7%risk of adverse cardiac event.Candidate for discharge Results - Labs CBC & Chem 7: 10/28/21 07:09 10/28/21 07:09 Labs: Laboratory Last Values WBC 9.5 K/mm3 (4.5-11.0) 10/28/21 07:09 RBC 4.58 M/mm3 (3.65-5.03) 10/28/21 07:09 Hgb 11.5 gm/dl (11.8-15.2) L 10/28/21 07:09 Hct 36.7 % (35.5-45.6) 10/28/21 07:09 MCV 80 fl (84-94) L 10/28/21 07:09 MCH 25 pg (28-32) L 10/28/21 07:09 MCHC 31 % (32-34) L 10/28/21 07:09 RDW 16.3 % (13.2-15.2) H 10/28/21 07:09 Plt Count 357 K/mm3 (140-440) 10/28/21 07:09 Lymph % (Auto) 4.9 % (13.4-35.0) L 10/19/21 23:52 [place] % (Auto) 5.3 % (0.0-7.3) 10/19/21 23:52 Eos % (Auto) 0.0 % (0.0-4.3) 10/19/21 23:52 Baso % (Auto) 0.1 % (0.0-1.8) 10/19/21 23:52 Lymph # (Auto) 0.5 K/mm3 (1.2-5.4) L 10/19/21 23:52 [place] # (Auto) 0.5 K/mm3 (0.0-0.8) 10/19/21 23:52 Eos # (Auto) 0.0 K/mm3 (0.0-0.4) 10/19/21 23:52 Baso # (Auto) 0.0 K/mm3 (0.0-0.1) 10/19/21 23:52 Seg Neutrophils % 89.7 % (40.0-70.0) H 10/19/21 23:52 Seg Neutrophils # 8.9 K/mm3 (1.8-7.7) H 10/19/21 23:52 PT 14.8 Sec. (12.2-14.9) 10/20/21 13:30 INR 1.05 (0.87-1.13) 10/20/21 13:30 APTT 36.1 Sec. (24.2-36.6) 10/20/21 13:30 D-Dimer 1019.09 ng/mlDDU (0-234) H 10/23/21 04:45 Heparin Anti-Xa Level 0.35 U.I./ml (0.3-0.7) 10/28/21 07:09 ABG pH 7.404 pH Units (7.350-7.450) 10/28/21 06:00 POC ABG pCO2 69.9 mmHg (32.0-48.0) H 10/21/21 09:34 ABG pCO2 45.9 mm Hg 10/28/21 06:00 POC ABG pO2 65.6 mmHg (83-108) L 10/21/21 09:34 ABG pO2 56.1 mm Hg (80.0-90.0) L 10/28/21 06:00 POC ABG HCO3 24.5 10/21/21 09:34 ABG HCO3 28.1 mmol/L (20.0-26.0) H 10/28/21 06:00 ABG O2 Saturation 88.6 % (95.0-99.0) L 10/28/21 06:00 ABG O2 Content 14.6 (0.0-44) 10/28/21 06:00 POC ABG Base Excess -5.4 10/21/21 09:34 ABG Base Excess 2.8 mmol/L (-2.0-3.0) 10/28/21 06:00 ABG Hemoglobin 12.0 gm/dl (14.0-18.0) L 10/28/21 06:00 ABG Oxyhemoglobin 89.7 (94-98) L 10/21/21 09:34 ABG Carboxyhemoglobin 1.7 % (0.0-5.0) 10/28/21 06:00 ABG Methemoglobin 0.5 % (0.0-1.5) 10/28/21 06:00 ABG Sodium 138.1 mmol/L (136.0-145.0) 10/21/21 09:34 ABG Potassium 6.5 mmol/L (3.40-4.50) H 10/21/21 09:34 ABG Chloride 102.0 mmol/L (98-107) 10/21/21 09:34 ABG Glucose 190 mg/dL (65-95) H 10/21/21 09:34 Oxyhemoglobin 86.7 % (95.0-99.0) L 10/28/21 06:00 Carboxyhemoglobin 0.4 (0.5-1.5) L 10/21/21 09:34 FiO2 100 % 10/28/21 06:00 FiO2 % 100.0 10/21/21 09:34 Sodium 156 mmol/L (137-145) H D 10/28/21 07:09 Potassium 5.5 mmol/L (3.6-5.0) H 10/28/21 07:09 Chloride 117.3 mmol/L (98-107) H 10/28/21 07:09 Carbon Dioxide 26 mmol/L (22-30) 10/28/21 07:09 Anion Gap 18 mmol/L 10/28/21 07:09 BUN 66 mg/dL (9-20) H 10/28/21 07:09 Creatinine 1.0 mg/dL (0.8-1.3) 10/28/21 07:09 Estimated GFR > 60 ml/min 10/28/21 07:09 BUN/Creatinine Ratio 66 % 10/28/21 07:09 Glucose 145 mg/dL (75-100) H 10/28/21 07:09 POC Glucose 210 mg/dL (70-105) H 10/28/21 11:18 Hemoglobin A1c 7.9 % (4-6) H 10/19/21 23:52 Lactic Acid 1.40 mmol/L (0.7-2.0) 10/18/21 16:39 Calcium 8.8 mg/dL (8.4-10.2) 10/28/21 07:09 Phosphorus 11.10 mg/dL (2.5-4.5) H 10/24/21 05:30 Magnesium 2.80 mg/dL (1.7-2.3) H 10/24/21 05:30 Ferritin 1307.0 ng/mL (30.0-300.0) H 10/24/21 05:30 Total Bilirubin 0.20 mg/dL (0.1-1.2) 10/24/21 05:30 AST 79 units/L (5-40) H 10/24/21 05:30 ALT 171 units/L (7-56) H 10/24/21 05:30 Alkaline Phosphatase 73 units/L (35-129) 10/24/21 05:30 Lactate Dehydrogenase 712 units/L (91-180) H 10/23/21 04:45 Total Creatine Kinase 1484 units/L (55-170) H 10/18/21 16:39 CK-MB (CK-2) 3.3 ng/mL (0.0-4.0) 10/18/21 16:39 CK-MB (CK-2) Rel Index 0.2 (0-4) 10/18/21 16:39 Troponin T < 0.010 ng/mL (0.00-0.029) 10/18/21 16:39 C-Reactive Protein 6.40 mg/dL (0.00-1.30) H 10/23/21 04:45 Total Protein 6.9 g/dL (6.3-8.2) 10/24/21 05:30 Albumin 3.2 g/dL (3.9-5) L 10/24/21 05:30 Albumin/Globulin Ratio 0.9 % 10/24/21 05:30 Triglycerides 392 mg/dL (2-149) H 10/27/21 04:20 Lipase 15 units/L (13-60) 10/18/21 16:39 Procalcitonin 0.49 ng/mL (<0.15) 10/19/21 23:52 Arterial Blood Glucose 190 mg/dL (65-95) H 10/21/21 09:34 Arterial Blood Ionized Calcium 4.2 mg/dL (4.6-5.3) L 10/21/21 09:34 Urine Color Yellow (Yellow) 10/28/21 10:10 Urine Turbidity Cloudy (Clear) 10/28/21 10:10 Urine pH 5.0 (5.0-7.0) 10/28/21 10:10 Ur Specific [place] 1.015 (1.003-1.030) 10/28/21 10:10 Urine Protein <15 mg/dl mg/dL (Negative) 10/28/21 10:10 Urine Glucose (UA) Neg mg/dL (Negative) 10/28/21 10:10 Urine Ketones Neg mg/dL (Negative) 10/28/21 10:10 Urine Blood Mod (Negative) 10/28/21 10:10 Urine Nitrite Neg (Negative) 10/28/21 10:10 Urine Bilirubin Neg (Negative) 10/28/21 10:10 Urine Urobilinogen < 2.0 mg/dL (<2.0) 10/28/21 10:10 Ur Leukocyte Esterase Neg (Negative) 10/28/21 10:10 Urine WBC (Auto) 3.0 /HPF (0.0-6.0) 10/28/21 10:10 Urine RBC (Auto) 71.0 /HPF (0.0-6.0) 10/28/21 10:10 U Epithel Cells (Auto) < 1.0 /HPF (0-13.0) 10/28/21 10:10 Urine Bacteria (Auto) 1+ /HPF (Negative) 10/18/21 22:26 Urine Yeast (Budding) 1+ /HPF 10/28/21 10:10 Urine Creatinine 153.1 mg/dL (0.1-20.0) H 10/21/21 Unknown Urine Sodium 31 mmol/L 10/21/21 Unknown Urine Total Protein 173 mg/dL (5-11.8) H 10/21/21 Unknown Coronavirus (PCR) Positive (Negative) A 10/19/21 08:24 Hepatitis A IgM Ab Non-reactive (NonReactive) 10/19/21 23:52 Hep Bs Antigen Nonreactive (Negative) 10/19/21 23:52 Hep B Core IgM Ab Non-reactive (NonReactive) 10/19/21 23:52 Hepatitis C Antibody Non-reactive (NonReactive) 10/19/21 23:52 Scott/IV: Voiding Method Indwelling Catheter Active Medications - Current Medications Current Medications: Generic Name Dose Route Start Last Admin Trade Name Freq PRN Reason Stop Dose Admin Acetaminophen 650 mg 10/20/21 13:30 10/27/21 04:02 Acetaminophen 325 Mg/10.15 Ml Oral Liqd Unit Dose FEEDTUBE 650 mg Q6H PRN Administration Pain MILD(1-3)/Fever >100.5/HUSSEIN Al Hydrox/Mg Hydrox/Simethicone 30 ml 10/20/21 13:30 Alum-Mag Hydroxide-Simethicone [id number]/5ml Oral Liqd 30 Ml PO Q4H PRN Indigestion Lipase/Protease/Amylase 1 each 10/20/21 15:15 Lipase 10,500/Protease 25,000/Amylase 43,750 (Units) Dr Cap FEEDTUBE PRN PRN For Clogged Feeding Tube Bisacodyl 10 mg 10/20/21 13:30 Bisacodyl 10 Mg Rect Supp CA QDAY PRN constipation unrelieved by MOM Calcium Acetate 1,334 mg 10/23/21 08:00 10/28/21 08:28 Calcium Acetate 667 Mg Cap PO 1,334 mg TID ALBIN Administration Dextrose 50 ml 10/20/21 13:30 Dextrose 50% In Water (25gm) 50 Ml Syringe IV Q30MIN PRN Hypoglycemia Protocol Docusate Sodium 100 mg 10/26/21 11:00 10/28/21 09:03 Docusate Sodium 100 Mg/10 Ml Oral Liqd PO 100 mg BID ALBIN Administration Famotidine 20 mg 10/28/21 10:00 10/28/21 09:02 Famotidine 20 Mg/2 Ml Inj IV 20 mg BID ALBIN Administration Fentanyl 50 mcg 10/20/21 13:25 10/25/21 10:19 Fentanyl 100 Mcg/2 Ml Inj IV 50 mcg Q10MIN PRN Administration ANALGESIA Heparin Sodium (Porcine) 5,000 unit 10/20/21 10:41 10/21/21 17:19 Heparin 10,000 Units/10 Ml Vial IV 5,000 unit Q6H PRN Administration Anti-Xa Assay < 0.1 units/ml Hydrophilic Ointment 1 applic 10/20/21 13:25 Lip Therapy Vaseline TP Q2HR PRN Dry Lips Heparin Sodium/Sodium Chloride 25,000 unit in 500 mls @ 30 mls/hr 10/20/21 20:00 10/28/21 09:01 Heparin/ 0.45% Nacl-25,000 Unit/500 Ml IV 1,200 units/hr TITR ALBIN 24 mls/hr Titration Protocol 1,500 UNITS/HR Midazolam HCl 100 mg/ Sodium 100 mls @ 2 mls/hr 10/20/21 14:00 10/28/21 05:23 Chloride IV 8 mg/hr TITR ALBIN 8 mls/hr Administration Protocol 2 MG/HR Fentanyl Citrate 2,000 mcg in 100 mls @ 7.938 mls/hr 10/20/21 14:00 10/28/21 10:06 Fentanyl Drip Premix IV 4 mcg/kg/hr TITR ALBIN 31.751 mls/hr Administration Protocol 1 MCG/KG/HR Propofol 1,000 mg in 100 mls @ 4.763 mls/hr 10/20/21 14:00 10/28/21 10:05 Diprivan 10 Mg/Ml IV 50 mcg/kg/min TITR ALBIN 47.627 mls/hr Administration Protocol 5 MCG/KG/MIN Sodium Chloride 1,000 mls @ 1 mls/hr 10/20/21 14:30 Nacl 0.9% 500 Ml IV DIRECT PRN ARTERIAL LINE FLUSH Dexmedetomidine HCl 400 mcg/ 104 mls @ 8.258 mls/hr 10/22/21 16:00 10/28/21 10:10 Sodium Chloride IV 1 mcg/kg/hr TITRATE ALBIN 41.288 mls/hr Administration Protocol 0.2 MCG/KG/HR NORepinephrine/NS 8 MG-250 ML 8 mg in 250 mls @ 3.75 mls/hr 10/22/21 18:00 10/23/21 08:20 Norepinephrine/Ns 8 Mg-250 Ml (Double Conc) IV 0 mcg/min TITRATE ALBIN 0 mls/hr Titration Protocol 2 MCG/MIN Cisatracurium Besylate 10 mg/ 100 mls @ 23.82 mls/hr 10/27/21 12:00 10/28/21 08:28 Sodium Chloride IV 10/29/21 12:00 0.25 mcg/kg/min TITR ALBIN 23.82 mls/hr Administration Protocol 0.25 MCG/KG/MIN Insulin Glargine 35 units 10/25/21 22:00 10/27/21 21:11 Insulin Glargine 100 Units/Ml SUB-Q 35 units QHS ALBIN Administration Insulin Human Lispro 0 unit 10/24/21 18:00 10/28/21 06:33 Insulin Lispro 100 Unit/Ml SUB-Q Not Given Q6HR [facility] Protocol Methylprednisolone Sodium Succinate 60 mg 10/22/21 14:00 10/28/21 06:37 Methylprednisolone Sod Succinate 125 Mg/2 Ml Inj IV 60 mg Q8HR ALBIN Administration Metoclopramide HCl 10 mg 10/28/21 12:00 Metoclopramide 10 Mg/2 Ml Inj IV Q6HR [facility] Multi-Ingred Cream/Lotion/Oil/Oint 1 applic 10/20/21 13:25 10/27/21 12:35 Mineral Oil/Petrolatum, White Ophth Oint 3.5 Gm OU 1 applic Q4HR PRN Administration Dry Eye(s) Ondansetron HCl 4 mg 10/19/21 04:21 Ondansetron 4 Mg/2 Ml Inj IV Q8H PRN Nausea And Vomiting Promethazine HCl 25 mg 10/19/21 04:38 10/20/21 05:06 Promethazine 25 Mg Tab PO 25 mg Q6H PRN Administration Nausea And Vomiting Quetiapine Fumarate 100 mg 10/26/21 10:00 10/28/21 09:02 Quetiapine 100 Mg Tab PO 100 mg BID [facility] Administration Senna 8.8 mg 10/20/21 22:00 10/28/21 09:02 Sennosides Oral Liqd 8.8 Mg/5 Ml Oral Liqd FEEDTUBE 8.8 mg BID ALBIN Administration Simple Syrup 15 ml 10/20/21 15:15 Simple Syrup 15 Ml FEEDTUBE PRN PRN Hypoglycemia Simple Syrup 30 ml 10/20/21 15:15 Simple Syrup 15 Ml FEEDTUBE PRN PRN Hypoglycemia Sodium Bicarbonate 325 mg 10/20/21 15:15 Sodium Bicarbonate 325 Mg Tab FEEDTUBE PRN PRN For Clogged Feeding Tube Sodium Chloride 10 ml 10/19/21 10:00 10/28/21 09:03 Sodium Chloride 0.9% 10 Ml Flush Syringe IV 10 ml BID ALBIN Administration Sodium Chloride 10 ml 10/19/21 04:26 Sodium Chloride 0.9% 10 Ml Flush Syringe IV PRN PRN flush prior to & after IV med Sodium Polystyrene Sulfonate 60 gm 10/28/21 09:00 10/28/21 09:01 Sodium Polystyrene 15 Gm/60 Ml Oral Liqd PO 10/28/21 13:00 60 gm ONCE@0900 ALBIN Administration Nutrition/Malnutrition Assess - Dietary Evaluation Nutrition/Malnutrition Findings: Nutrition Notes Start: 10/19/21 14:34 Freq: Status: Active Protocol: Document 10/27/21 10:14 REESE (Rec: 10/27/21 10:20 ORDEVONTE [id number]) Nutrition Notes Initial or Follow up Reassessment Current Diagnosis Diabetes,Hypertension, Respiratory Failure Other Pertinent Diagnosis COVID-19 pneu, hepatic steatosis, asthma, gout, pulmonary embolism Current Diet TF - Nepro at 53ml/hr Labs/Tests Na 146 BUN 102 Cr 1.8 BG 207 Pertinent Medications Colace (RN reports no BM since admission), Propofol at 47. 627 ml/hr (provides 1257 kcal) , Cisatracurium besylate gtt Height 6 ft Weight 158.8 kg [place] Body Weight (kg) 80.90 BMI 47.5 Weight Status Morbidly Obese Subjective/Other Information Gastric residuals remain > 300ml; TF continues at 10ml/hr . Pt remains on vent support; has not been tolerating vent. HD needs assessed on daily basis. Percent of energy/protein needs met: 77% energy 12% pro (includes kcal from propofol) Burn Absent Trauma Absent Minimum of two criteria No #1 Nutrition Diagnosis Inadequate oral intake Diagnosis Progress(for reassessment Continues documentation) Is patient on ventilator? Yes Is Patient Ambulatory and/or Out of Bed No REE-([facility]-confined to bed) [phone] Calculation Used for Recommendations 70-80% energy needs Additional Notes Energy needs: [phone] kcal/ day Pro needs 1.3g/kg adjBW: 156g/ day Fluid needs 1ml/kcal Nutrition Intervention Nutrition Support: Continue Nepro at 10ml/hr; increase rate as tolerated to goal of 53ml/hr. Kcal 432 Protein (gm) 19 Goal #1 TF tolerance Goal #2 Increase TF to goal rate to meet nutrient needs as best possible Follow-Up By: 10/31/21 Additional Comments F/U: TF tolerance/rate increase, vent status, propofol, renal function <OLE,DIMPLE R - Last Filed: 10/29/21 11:33> Assessment and Plan Assessment and plan: I saw and evaluated the patient 10/28/21. I agree with the findings and the plan of care as documented in the Nurse Practitioner's~note, patient is critically ill with very poor prognosis. Hospitalist Physical - Constitutional Vitals: Temp Pulse Resp BP Pulse Ox 101.1 F H 163 H 0 L 59/24 0 L 10/28/21 19:55 10/28/21 21:41 10/28/21 21:53 10/28/21 21:53 10/28/21 23:42 HEART Score - HEART Score Troponin: Troponin T < 0.010 ng/mL (0.00-0.029) 10/18/21 16:39 Results - Labs CBC & Chem 7: 10/28/21 07:09 10/28/21 07:09 Labs: Laboratory Last Values WBC 9.5 K/mm3 (4.5-11.0) 10/28/21 07:09 RBC 4.58 M/mm3 (3.65-5.03) 10/28/21 07:09 Hgb 11.5 gm/dl (11.8-15.2) L 10/28/21 07:09 Hct 36.7 % (35.5-45.6) 10/28/21 07:09 MCV 80 fl (84-94) L 10/28/21 07:09 MCH 25 pg (28-32) L 10/28/21 07:09 MCHC 31 % (32-34) L 10/28/21 07:09 RDW 16.3 % (13.2-15.2) H 10/28/21 07:09 Plt Count 357 K/mm3 (140-440) 10/28/21 07:09 Lymph % (Auto) 4.9 % (13.4-35.0) L 10/19/21 23:52 [place] % (Auto) 5.3 % (0.0-7.3) 10/19/21 23:52 Eos % (Auto) 0.0 % (0.0-4.3) 10/19/21 23:52 Baso % (Auto) 0.1 % (0.0-1.8) 10/19/21 23:52 Lymph # (Auto) 0.5 K/mm3 (1.2-5.4) L 10/19/21 23:52 [place] # (Auto) 0.5 K/mm3 (0.0-0.8) 10/19/21 23:52 Eos # (Auto) 0.0 K/mm3 (0.0-0.4) 10/19/21 23:52 Baso # (Auto) 0.0 K/mm3 (0.0-0.1) 10/19/21 23:52 Seg Neutrophils % 89.7 % (40.0-70.0) H 10/19/21 23:52 Seg Neutrophils # 8.9 K/mm3 (1.8-7.7) H 10/19/21 23:52 PT 14.8 Sec. (12.2-14.9) 10/20/21 13:30 INR 1.05 (0.87-1.13) 10/20/21 13:30 APTT 36.1 Sec. (24.2-36.6) 10/20/21 13:30 D-Dimer 1019.09 ng/mlDDU (0-234) H 10/23/21 04:45 Heparin Anti-Xa Level 0.35 U.I./ml (0.3-0.7) 10/28/21 07:09 ABG pH 7.281 pH Units (7.350-7.450) L 10/28/21 18:07 POC ABG pCO2 69.9 mmHg (32.0-48.0) H 10/21/21 09:34 ABG pCO2 57.6 mm Hg 10/28/21 18:07 POC ABG pO2 65.6 mmHg (83-108) L 10/21/21 09:34 ABG pO2 55.5 mm Hg (80.0-90.0) L 10/28/21 18:07 POC ABG HCO3 24.5 10/21/21 09:34 ABG HCO3 26.5 mmol/L (20.0-26.0) H 10/28/21 18:07 ABG O2 Saturation 82.7 % (95.0-99.0) L 10/28/21 18:07 ABG O2 Content 14.9 (0.0-44) 10/28/21 18:07 POC ABG Base Excess -5.4 10/21/21 09:34 ABG Base Excess -1.2 mmol/L (-2.0-3.0) 10/28/21 18:07 ABG Hemoglobin 13.1 gm/dl (14.0-18.0) L 10/28/21 18:07 ABG Oxyhemoglobin 89.7 (94-98) L 10/21/21 09:34 ABG Carboxyhemoglobin 1.6 % (0.0-5.0) 10/28/21 18:07 ABG Methemoglobin 0.7 % (0.0-1.5) 10/28/21 18:07 ABG Sodium 138.1 mmol/L (136.0-145.0) 10/21/21 09:34 ABG Potassium 6.5 mmol/L (3.40-4.50) H 10/21/21 09:34 ABG Chloride 102.0 mmol/L (98-107) 10/21/21 09:34 ABG Glucose 190 mg/dL (65-95) H 10/21/21 09:34 Oxyhemoglobin 80.8 % (95.0-99.0) L 10/28/21 18:07 Carboxyhemoglobin 0.4 (0.5-1.5) L 10/21/21 09:34 FiO2 100 % 10/28/21 18:07 FiO2 % 100.0 10/21/21 09:34 Sodium 156 mmol/L (137-145) H D 10/28/21 07:09 Potassium 5.5 mmol/L (3.6-5.0) H 10/28/21 07:09 Chloride 117.3 mmol/L (98-107) H 10/28/21 07:09 Carbon Dioxide 26 mmol/L (22-30) 10/28/21 07:09 Anion Gap 18 mmol/L 10/28/21 07:09 BUN 66 mg/dL (9-20) H 10/28/21 07:09 Creatinine 1.0 mg/dL (0.8-1.3) 10/28/21 07:09 Estimated GFR > 60 ml/min 10/28/21 07:09 BUN/Creatinine Ratio 66 % 10/28/21 07:09 Glucose 145 mg/dL (75-100) H 10/28/21 07:09 POC Glucose 375 mg/dL (70-105) H 10/28/21 21:29 Hemoglobin A1c 7.9 % (4-6) H 10/19/21 23:52 Lactic Acid 1.40 mmol/L (0.7-2.0) 10/18/21 16:39 Calcium 8.8 mg/dL (8.4-10.2) 10/28/21 07:09 Phosphorus 11.10 mg/dL (2.5-4.5) H 10/24/21 05:30 Magnesium 2.80 mg/dL (1.7-2.3) H 10/24/21 05:30 Ferritin 1307.0 ng/mL (30.0-300.0) H 10/24/21 05:30 Total Bilirubin 0.20 mg/dL (0.1-1.2) 10/24/21 05:30 AST 79 units/L (5-40) H 10/24/21 05:30 ALT 171 units/L (7-56) H 10/24/21 05:30 Alkaline Phosphatase 73 units/L (35-129) 10/24/21 05:30 Lactate Dehydrogenase 712 units/L (91-180) H 10/23/21 04:45 Total Creatine Kinase 1484 units/L (55-170) H 10/18/21 16:39 CK-MB (CK-2) 3.3 ng/mL (0.0-4.0) 10/18/21 16:39 CK-MB (CK-2) Rel Index 0.2 (0-4) 10/18/21 16:39 Troponin T < 0.010 ng/mL (0.00-0.029) 10/18/21 16:39 C-Reactive Protein 6.40 mg/dL (0.00-1.30) H 10/23/21 04:45 Total Protein 6.9 g/dL (6.3-8.2) 10/24/21 05:30 Albumin 3.2 g/dL (3.9-5) L 10/24/21 05:30 Albumin/Globulin Ratio 0.9 % 10/24/21 05:30 Triglycerides 392 mg/dL (2-149) H 10/27/21 04:20 Lipase 15 units/L (13-60) 10/18/21 16:39 Procalcitonin 0.49 ng/mL (<0.15) 10/19/21 23:52 Arterial Blood Glucose 190 mg/dL (65-95) H 10/21/21 09:34 Arterial Blood Ionized Calcium 4.2 mg/dL (4.6-5.3) L 10/21/21 09:34 Urine Color Yellow (Yellow) 10/28/21 10:10 Urine Turbidity Cloudy (Clear) 10/28/21 10:10 Urine pH 5.0 (5.0-7.0) 10/28/21 10:10 Ur Specific [place] 1.015 (1.003-1.030) 10/28/21 10:10 Urine Protein <15 mg/dl mg/dL (Negative) 10/28/21 10:10 Urine Glucose (UA) Neg mg/dL (Negative) 10/28/21 10:10 Urine Ketones Neg mg/dL (Negative) 10/28/21 10:10 Urine Blood Mod (Negative) 10/28/21 10:10 Urine Nitrite Neg (Negative) 10/28/21 10:10 Urine Bilirubin Neg (Negative) 10/28/21 10:10 Urine Urobilinogen < 2.0 mg/dL (<2.0) 10/28/21 10:10 Ur Leukocyte Esterase Neg (Negative) 10/28/21 10:10 Urine WBC (Auto) 3.0 /HPF (0.0-6.0) 10/28/21 10:10 Urine RBC (Auto) 71.0 /HPF (0.0-6.0) 10/28/21 10:10 U Epithel Cells (Auto) < 1.0 /HPF (0-13.0) 10/28/21 10:10 Urine Bacteria (Auto) 1+ /HPF (Negative) 10/18/21 22:26 Urine Yeast (Budding) 1+ /HPF 10/28/21 10:10 Urine Creatinine 153.1 mg/dL (0.1-20.0) H 10/21/21 Unknown Urine Sodium 31 mmol/L 10/21/21 Unknown Urine Total Protein 173 mg/dL (5-11.8) H 10/21/21 Unknown Coronavirus (PCR) Positive (Negative) A 10/19/21 08:24 Hepatitis A IgM Ab Non-reactive (NonReactive) 10/19/21 23:52 Hep Bs Antigen Nonreactive (Negative) 10/19/21 23:52 Hep B Core IgM Ab Non-reactive (NonReactive) 10/19/21 23:52 Hepatitis C Antibody Non-reactive (NonReactive) 10/19/21 23:52 Microbiology: Microbiology 10/28/21 12:32 Tracheal Aspirate Sputum Culture - Preliminary 10/28/21 09:45 Peripheral/Venous Blood Culture - Preliminary Culture in Progress 10/28/21 09:11 Peripheral/Venous Blood Culture - Preliminary Culture in Progress Scott/IV: Voiding Method Indwelling Catheter Nutrition/Malnutrition Assess - Dietary Evaluation Nutrition/Malnutrition Findings: Nutrition Notes Start: 10/19/21 14:34 Freq: Status: Discharge Protocol: Document 10/27/21 10:14 REESE (Rec: 10/27/21 10:20 REESE [id number]) Nutrition Notes Initial or Follow up Reassessment Current Diagnosis Diabetes,Hypertension, Respiratory Failure Other Pertinent Diagnosis COVID-19 pneu, hepatic steatosis, asthma, gout, pulmonary embolism Current Diet TF - Nepro at 53ml/hr Labs/Tests Na 146 BUN 102 Cr 1.8 BG 207 Pertinent Medications Colace (RN reports no BM since admission), Propofol at 47. 627 ml/hr (provides 1257 kcal) , Cisatracurium besylate gtt Height 6 ft Weight 158.8 kg [place] Body Weight (kg) 80.90 BMI 47.5 Weight Status Morbidly Obese Subjective/Other Information Gastric residuals remain > 300ml; TF continues at 10ml/hr . Pt remains on vent support; has not been tolerating vent. HD needs assessed on daily basis. Percent of energy/protein needs met: 77% energy 12% pro (includes kcal from propofol) Burn Absent Trauma Absent Minimum of two criteria No #1 Nutrition Diagnosis Inadequate oral intake Diagnosis Progress(for reassessment Continues documentation) Is patient on ventilator? Yes Is Patient Ambulatory and/or Out of Bed No REE-([facility]-confined to bed) 3119.179 Calculation Used for Recommendations 70-80% energy needs Additional Notes Energy needs: 1149-8324 kcal/ day Pro needs 1.3g/kg adjBW: 156g/ day Fluid needs 1ml/kcal Nutrition Intervention Nutrition Support: Continue Nepro at 10ml/hr; increase rate as tolerated to goal of 53ml/hr. Kcal 432 Protein (gm) 19 Goal #1 TF tolerance Goal #2 Increase TF to goal rate to meet nutrient needs as best possible Follow-Up By: 10/31/21 Additional Comments F/U: TF tolerance/rate increase, vent status, propofol, renal function
[2021-10-28] MEDS ORDERED: hydrALAZINE 20 MG/1 ML INJ IV PRN (11:34)
[2021-10-28] MEDS: ACETAMINOPHEN 325 MG/10.15 ML ORAL LIQD UNIT DOSE FEEDTUBE PRN (12:00)
[2021-10-28] MEDS: MINERAL OIL/PETROLATUM, WHITE OPHTH OINT 3.5 GM OU PRN (12:14)
--- NOTE | 2021-10-28 13:08 | Progress Note ---
Assessment and Plan 26 y/o morbidly obese male admitted with acute respiratory failure secondary to COVID pneumonia 10/28/21: Fevers are new, agree with infectious work up. Patient had known PE's on admission, but if infectious work up negative may need to scan upper and lower ext for clots. Renal function continues to improve. Down to 1 now. BP elevated and addressing. Still very hypoxic, in full blown ARDs from COVID pneumonia. High risk for failure if manually proned. Continue heavy sedation with paralytic. Wean FiO2 as tolerated, continue PEEP as long as Peak pressures can tolerate. Guarded prognosis. 10/27/21: Continue current level of sedation with paralytic therapy. Ends today. renal function improving. Will ask renal how they feel about the possibility of diuresis. Will continue current vent settings but can consider weaning FiO2. Maybe to 90-95%. Prognosis still remains very guarded. 10/26/21: Continue heavy sedation and paralytic until tomorrow at 11. Monitor renal function. Attempt to wean vent when safe. PaO2 of 55 and sats of 88% are acceptable as the low ends of stable. Prognosis remains extremely guarded. 10/25/21: Will attempt to use paralytics today to help with ventilator synchrony. Can increase versed and restart precedex if need be. Discussed with [employer] and suggested antipsychotics as well which I agree with. Will obtain repeat CXR as well to eval for ptx. Very very guarded prognosis. 10/24/21: HD today. Continue current vent settings, if remains the same the next 24 hours, will try to wean FiO2. Will restart tube fees at 10 and reassess residuals tomorrow. Continue remdesivir, continue steroids. 10/23/21: Follow up renal recs. Per chart took off about 2 liters. CXR is the same, K remains elevated and BUN is 65. Acidemia is likely a combo of elevated CO2 and renal disease. Increased tidal volume but only by 25ml, as peak pressures are in the 40's. High risk for pneumothorax. Not a candidate for ecmo given obesity, he is age appropriate. Continue steroids. Continue Remdesivir. Overall prognosis is very very poor. 10/22/21: Hold on weaning today. Will ask renal for HD again today, and hopeful some volume removal. Hopeful echo can be read today. Maybe out of window for EKOS if evidence of right heart strain. CXR is worse. Will change steroids to solumedrol 60q8, may need long acting insulin. Feed patient. Very very guarded to poor prognosis. Will ask renal if they will dialyze again today. 10/21/21: Follow up echo. Unfortunately, requested initially to look for right heart strain and possible need for EKOS therapy however now in acute renal failure and needing dialysis. CXR is stable but does look like ARDS. HD catheter placed and ready for dialysis. [employer] REPA[employer] placing art line now. Continue IV steroids, Continue remdesivir. Now that patient is intubated, prognosis is extremely poor, especially with renal failure. Continue supportive care. May need bicarb later. 1. Continue HFNC with NRB. Will use precedex in an attempt to help with anxiety 2. Long discussion with patient and at bedside in regards to risk of intubation and prognosis associated with this. Both expressed understanding 3. IV steroids, will increase to BID 4. Remdesivir 5. Actemra 6. Guarded to poor prognosis. CCT 31 minutes. Subjective Date of service: 10/28/21 Principal diagnosis: phan Interval history: Spiking temps now. Recultured. No CXR done this am. Still on 100% and 20 of PEEP but sat is 95%. Sedated on versed, fent, diprovan and paralyzed with Nimbex Objective Vital Signs - 12hr 10/28/21 10/28/21 10/28/21 01:15 01:30 01:45 Temperature Pulse Rate 71 73 73 Pulse Rate [ From Monitor] Respiratory 24 23 23 Rate Blood Pressure 167/91 170/88 169/86 O2 Sat by Pulse 92 94 93 Oximetry 10/28/21 10/28/21 10/28/21 02:00 02:15 02:30 Temperature Pulse Rate 75 74 74 Pulse Rate [ From Monitor] Respiratory 25 H 24 24 Rate Blood Pressure 164/86 163/85 166/83 O2 Sat by Pulse 92 92 91 Oximetry 10/28/21 10/28/21 10/28/21 02:45 03:00 03:15 Temperature Pulse Rate 75 71 73 Pulse Rate [ From Monitor] Respiratory 24 24 29 H Rate Blood Pressure 161/81 162/82 152/76 O2 Sat by Pulse 92 94 93 Oximetry 10/28/21 10/28/21 10/28/21 03:20 03:30 03:45 Temperature 100.9 F H Pulse Rate 73 74 Pulse Rate [ From Monitor] Respiratory 24 25 H Rate Blood Pressure 164/85 165/87 O2 Sat by Pulse 93 94 Oximetry 10/28/21 10/28/21 10/28/21 04:00 04:15 04:22 Temperature Pulse Rate 76 77 75 Pulse Rate [ 76 From Monitor] Respiratory 25 H 25 H Rate Blood Pressure 162/82 159/82 159/82 O2 Sat by Pulse 94 95 95 Oximetry 10/28/21 10/28/21 10/28/21 04:30 04:45 05:00 Temperature Pulse Rate 75 75 74 Pulse Rate [ From Monitor] Respiratory 25 H 22 23 Rate Blood Pressure 157/79 165/84 162/81 O2 Sat by Pulse 96 95 96 Oximetry 10/28/21 10/28/21 10/28/21 05:16 05:30 05:45 Temperature Pulse Rate 73 71 71 Pulse Rate [ From Monitor] Respiratory 23 26 H 24 Rate Blood Pressure 156/81 150/81 151/84 O2 Sat by Pulse 94 92 94 Oximetry 10/28/21 10/28/21 10/28/21 06:00 06:15 06:30 Temperature Pulse Rate 73 73 74 Pulse Rate [ From Monitor] Respiratory 23 24 23 Rate Blood Pressure 157/84 157/77 157/77 O2 Sat by Pulse 94 94 95 Oximetry 10/28/21 10/28/21 10/28/21 06:46 07:00 07:13 Temperature 101.2 F H Pulse Rate 76 74 Pulse Rate [ From Monitor] Respiratory 22 20 Rate Blood Pressure 152/73 152/73 O2 Sat by Pulse 95 95 Oximetry 10/28/21 10/28/21 10/28/21 07:15 07:30 07:45 Temperature Pulse Rate 74 70 67 Pulse Rate [ From Monitor] Respiratory 21 28 H 22 Rate Blood Pressure 148/75 148/75 144/74 O2 Sat by Pulse 95 92 91 Oximetry 10/28/21 10/28/21 10/28/21 08:00 08:01 08:16 Temperature Pulse Rate 71 70 69 Pulse Rate [ 68 From Monitor] Respiratory 22 23 Rate Blood Pressure 144/74 146/86 146/86 O2 Sat by Pulse 94 94 95 Oximetry 10/28/21 10/28/21 10/28/21 08:30 08:35 08:46 Temperature Pulse Rate 67 67 Pulse Rate [ From Monitor] Respiratory 21 24 22 Rate Blood Pressure 161/89 154/86 O2 Sat by Pulse 95 95 Oximetry 10/28/21 10/28/21 10/28/21 09:00 09:16 09:30 Temperature Pulse Rate 67 64 65 Pulse Rate [ From Monitor] Respiratory 22 23 22 Rate Blood Pressure 154/86 173/90 173/90 O2 Sat by Pulse 96 95 95 Oximetry 10/28/21 10/28/21 10/28/21 09:46 10:00 10:16 Temperature Pulse Rate 65 68 69 Pulse Rate [ From Monitor] Respiratory 21 22 23 Rate Blood Pressure 171/85 171/85 174/89 O2 Sat by Pulse 97 98 98 Oximetry 10/28/21 10/28/21 10/28/21 10:30 10:45 11:00 Temperature Pulse Rate 65 69 67 Pulse Rate [ From Monitor] Respiratory 20 23 21 Rate Blood Pressure 177/90 171/85 171/92 O2 Sat by Pulse 98 98 98 Oximetry 10/28/21 10/28/21 10/28/21 11:05 11:16 11:30 Temperature Pulse Rate 68 69 Pulse Rate [ From Monitor] Respiratory 23 22 22 Rate Blood Pressure 170/88 170/88 O2 Sat by Pulse 98 97 Oximetry 10/28/21 10/28/21 10/28/21 11:45 11:50 12:00 Temperature 101.4 F H Pulse Rate 70 69 Pulse Rate [ From Monitor] Respiratory 21 20 Rate Blood Pressure 131/80 131/80 O2 Sat by Pulse 97 97 Oximetry 10/28/21 10/28/21 12:13 12:16 Temperature Pulse Rate 73 74 Pulse Rate [ From Monitor] Respiratory 23 Rate Blood Pressure 152/83 152/83 O2 Sat by Pulse 96 95 Oximetry Constitutional: appears uncomfortable, other (morbidly obese) Eyes: non-icteric ENT: oropharynx moist Neck: supple, other (large in circumference) Effort: very labored Ascultation: Bilateral: diminished breath sounds Percussion: Bilateral: not dull Tactile fremitus: Bilateral: normal Cardiovascular: regular rate and rhythm Gastrointestinal: normoactive bowel sounds, soft Extremities: no edema Neurologic: normal mental status Psychiatric: anxious CBC and BMP: 10/28/21 07:09 10/28/21 07:09 ABG, PT/INR, D-dimer: ABG ABG pH 7.404 pH Units (7.350-7.450) 10/28/21 06:00 POC ABG pCO2 69.9 mmHg (32.0-48.0) H 10/21/21 09:34 ABG pCO2 45.9 mm Hg 10/28/21 06:00 POC ABG pO2 65.6 mmHg (83-108) L 10/21/21 09:34 ABG pO2 56.1 mm Hg (80.0-90.0) L 10/28/21 06:00 POC ABG HCO3 24.5 10/21/21 09:34 ABG O2 Saturation 88.6 % (95.0-99.0) L 10/28/21 06:00 PT/INR, D-dimer PT 14.8 Sec. (12.2-14.9) 10/20/21 13:30 INR 1.05 (0.87-1.13) 10/20/21 13:30 D-Dimer 1019.09 ng/mlDDU (0-234) H 10/23/21 04:45 Abnormal lab findings: Abnormal Labs 10/18/21 10/18/21 10/19/21 16:39 16:39 08:24 Hgb Hct MCV 79 L MCH 26 L MCHC RDW 15.4 H Lymph % (Auto) 7.7 L Lymph # (Auto) 0.6 L Seg Neutrophils % 86.4 H Seg Neutrophils # D-Dimer Heparin Anti-Xa Level ABG pH POC ABG pCO2 POC ABG pO2 ABG pO2 ABG HCO3 ABG O2 Saturation ABG Base Excess ABG Hemoglobin ABG Oxyhemoglobin ABG Sodium ABG Potassium ABG Glucose Oxyhemoglobin Carboxyhemoglobin Sodium 133 L Potassium Chloride 96.6 L Carbon Dioxide 19 L BUN Creatinine Glucose 183 H POC Glucose Hemoglobin A1c Calcium Phosphorus Magnesium Ferritin AST 72 H ALT 58 H Lactate Dehydrogenase Total Creatine Kinase 1484 H C-Reactive Protein Total Protein Albumin 3.6 L Triglycerides Arterial Blood Glucose Arterial Blood Ionized Calcium Urine Creatinine Urine Total Protein Coronavirus (PCR) Positive A 10/19/21 10/19/21 10/19/21 13:41 17:41 21:02 Hgb Hct MCV MCH MCHC RDW Lymph % (Auto) Lymph # (Auto) Seg Neutrophils % Seg Neutrophils # D-Dimer Heparin Anti-Xa Level ABG pH POC ABG pCO2 POC ABG pO2 ABG pO2 ABG HCO3 ABG O2 Saturation ABG Base Excess ABG Hemoglobin ABG Oxyhemoglobin ABG Sodium ABG Potassium ABG Glucose Oxyhemoglobin Carboxyhemoglobin Sodium Potassium Chloride Carbon Dioxide BUN Creatinine Glucose POC Glucose 231 H 228 H 271 H Hemoglobin A1c Calcium Phosphorus Magnesium Ferritin AST ALT Lactate Dehydrogenase Total Creatine Kinase C-Reactive Protein Total Protein Albumin Triglycerides Arterial Blood Glucose Arterial Blood Ionized Calcium Urine Creatinine Urine Total Protein Coronavirus (PCR) 10/19/21 10/19/21 10/19/21 23:52 23:52 23:52 Hgb Hct MCV 79 L MCH 25 L MCHC RDW 15.9 H Lymph % (Auto) 4.9 L Lymph # (Auto) 0.5 L Seg Neutrophils % 89.7 H Seg Neutrophils # 8.9 H D-Dimer Heparin Anti-Xa Level ABG pH POC ABG pCO2 POC ABG pO2 ABG pO2 ABG HCO3 ABG O2 Saturation ABG Base Excess ABG Hemoglobin ABG Oxyhemoglobin ABG Sodium ABG Potassium ABG Glucose Oxyhemoglobin Carboxyhemoglobin Sodium 133 L Potassium Chloride 95.0 L Carbon Dioxide 18 L BUN Creatinine Glucose 217 H POC Glucose Hemoglobin A1c 7.9 H Calcium Phosphorus Magnesium Ferritin AST 94 H ALT 76 H Lactate Dehydrogenase Total Creatine Kinase C-Reactive Protein Total Protein 8.4 H Albumin 3.6 L Triglycerides Arterial Blood Glucose Arterial Blood Ionized Calcium Urine Creatinine Urine Total Protein Coronavirus (PCR) 10/19/21 10/19/21 10/19/21 23:52 23:52 23:52 Hgb Hct MCV MCH MCHC RDW Lymph % (Auto) Lymph # (Auto) Seg Neutrophils % Seg Neutrophils # D-Dimer Heparin Anti-Xa Level ABG pH POC ABG pCO2 POC ABG pO2 ABG pO2 ABG HCO3 ABG O2 Saturation ABG Base Excess ABG Hemoglobin ABG Oxyhemoglobin ABG Sodium ABG Potassium ABG Glucose Oxyhemoglobin Carboxyhemoglobin Sodium Potassium Chloride Carbon Dioxide BUN Creatinine Glucose POC Glucose Hemoglobin A1c Calcium Phosphorus Magnesium Ferritin 786.1 H AST ALT Lactate Dehydrogenase 625 H Total Creatine Kinase C-Reactive Protein 18.80 H Total Protein Albumin Triglycerides Arterial Blood Glucose Arterial Blood Ionized Calcium Urine Creatinine Urine Total Protein Coronavirus (PCR) 10/19/21 10/20/21 10/20/21 23:52 11:25 14:40 Hgb Hct MCV MCH MCHC RDW Lymph % (Auto) Lymph # (Auto) Seg Neutrophils % Seg Neutrophils # D-Dimer Heparin Anti-Xa Level ABG pH 7.282 L POC ABG pCO2 53.7 H POC ABG pO2 57.3 L ABG pO2 ABG HCO3 ABG O2 Saturation ABG Base Excess ABG Hemoglobin ABG Oxyhemoglobin 83.6 L ABG Sodium 132.2 L ABG Potassium 5.5 H ABG Glucose 255 H Oxyhemoglobin Carboxyhemoglobin 0.3 L Sodium Potassium Chloride Carbon Dioxide BUN Creatinine Glucose POC Glucose 174 H Hemoglobin A1c Calcium Phosphorus Magnesium Ferritin AST ALT Lactate Dehydrogenase Total Creatine Kinase C-Reactive Protein 19.20 H Total Protein Albumin Triglycerides Arterial Blood Glucose 255 H Arterial Blood Ionized Calcium Urine Creatinine Urine Total Protein Coronavirus (PCR) 10/20/21 10/20/21 10/20/21 15:49 19:11 22:51 Hgb Hct MCV MCH MCHC RDW Lymph % (Auto) Lymph # (Auto) Seg Neutrophils % Seg Neutrophils # D-Dimer Heparin Anti-Xa Level ABG pH POC ABG pCO2 POC ABG pO2 ABG pO2 ABG HCO3 ABG O2 Saturation ABG Base Excess ABG Hemoglobin ABG Oxyhemoglobin ABG Sodium ABG Potassium ABG Glucose Oxyhemoglobin Carboxyhemoglobin Sodium Potassium Chloride Carbon Dioxide BUN Creatinine Glucose POC Glucose 239 H 198 H 171 H Hemoglobin A1c Calcium Phosphorus Magnesium Ferritin AST ALT Lactate Dehydrogenase Total Creatine Kinase C-Reactive Protein Total Protein Albumin Triglycerides Arterial Blood Glucose Arterial Blood Ionized Calcium Urine Creatinine Urine Total Protein Coronavirus (PCR) 10/20/21 10/21/21 10/21/21 Unknown 02:16 02:16 Hgb Hct MCV 83 L MCH 25 L MCHC 31 L RDW 16.4 H Lymph % (Auto) Lymph # (Auto) Seg Neutrophils % Seg Neutrophils # D-Dimer Heparin Anti-Xa Level ABG pH POC ABG pCO2 POC ABG pO2 ABG pO2 ABG HCO3 ABG O2 Saturation ABG Base Excess ABG Hemoglobin ABG Oxyhemoglobin ABG Sodium ABG Potassium ABG Glucose Oxyhemoglobin Carboxyhemoglobin Sodium 135 L Potassium Chloride 96.5 L Carbon Dioxide BUN Creatinine Glucose 191 H POC Glucose Hemoglobin A1c Calcium 8.3 L Phosphorus 10.40 H Magnesium 3.00 H Ferritin AST 107 H ALT 94 H Lactate Dehydrogenase 970 H Total Creatine Kinase C-Reactive Protein 21.10 H Total Protein Albumin 3.5 L Triglycerides Arterial Blood Glucose Arterial Blood Ionized Calcium Urine Creatinine Urine Total Protein Coronavirus (PCR) 10/21/21 10/21/21 10/21/21 02:16 02:16 03:30 Hgb Hct MCV MCH MCHC RDW Lymph % (Auto) Lymph # (Auto) Seg Neutrophils % Seg Neutrophils # D-Dimer 579.49 H Heparin Anti-Xa Level 1.60 H ABG pH POC ABG pCO2 POC ABG pO2 ABG pO2 ABG HCO3 ABG O2 Saturation ABG Base Excess ABG Hemoglobin ABG Oxyhemoglobin ABG Sodium ABG Potassium ABG Glucose Oxyhemoglobin Carboxyhemoglobin Sodium 136 L Potassium 7.0 H* D Chloride Carbon Dioxide BUN 43 H Creatinine 2.3 H D Glucose 210 H POC Glucose Hemoglobin A1c Calcium 8.3 L Phosphorus Magnesium Ferritin 1550.0 H AST 206 H ALT 194 H Lactate Dehydrogenase Total Creatine Kinase C-Reactive Protein Total Protein Albumin 3.3 L Triglycerides Arterial Blood Glucose Arterial Blood Ionized Calcium Urine Creatinine Urine Total Protein Coronavirus (PCR) 10/21/21 10/21/21 10/21/21 04:40 04:51 09:15 Hgb Hct MCV MCH MCHC RDW Lymph % (Auto) Lymph # (Auto) Seg Neutrophils % Seg Neutrophils # D-Dimer Heparin Anti-Xa Level ABG pH 7.184 L* POC ABG pCO2 POC ABG pO2 ABG pO2 60.2 L ABG HCO3 ABG O2 Saturation 86.6 L ABG Base Excess -4.3 L ABG Hemoglobin 12.1 L ABG Oxyhemoglobin ABG Sodium ABG Potassium ABG Glucose Oxyhemoglobin 85.2 L Carboxyhemoglobin Sodium Potassium Chloride Carbon Dioxide BUN Creatinine Glucose POC Glucose 204 H 177 H Hemoglobin A1c Calcium Phosphorus Magnesium Ferritin AST ALT Lactate Dehydrogenase Total Creatine Kinase C-Reactive Protein Total Protein Albumin Triglycerides Arterial Blood Glucose Arterial Blood Ionized Calcium Urine Creatinine Urine Total Protein Coronavirus (PCR) 10/21/21 10/21/21 10/21/21 09:34 10:53 11:27 Hgb Hct MCV MCH MCHC RDW Lymph % (Auto) Lymph # (Auto) Seg Neutrophils % Seg Neutrophils # D-Dimer Heparin Anti-Xa Level ABG pH 7.162 L POC ABG pCO2 69.9 H POC ABG pO2 65.6 L ABG pO2 ABG HCO3 ABG O2 Saturation ABG Base Excess ABG Hemoglobin ABG Oxyhemoglobin 89.7 L ABG Sodium ABG Potassium 6.5 H ABG Glucose 190 H Oxyhemoglobin Carboxyhemoglobin 0.4 L Sodium Potassium Chloride Carbon Dioxide BUN Creatinine Glucose POC Glucose 183 H 184 H Hemoglobin A1c Calcium Phosphorus Magnesium Ferritin AST ALT Lactate Dehydrogenase Total Creatine Kinase C-Reactive Protein Total Protein Albumin Triglycerides Arterial Blood Glucose 190 H Arterial Blood Ionized Calcium 4.2 L Urine Creatinine Urine Total Protein Coronavirus (PCR) 10/21/21 10/21/21 10/21/21 12:00 12:39 16:20 Hgb Hct MCV MCH MCHC RDW Lymph % (Auto) Lymph # (Auto) Seg Neutrophils % Seg Neutrophils # D-Dimer Heparin Anti-Xa Level ABG pH 7.183 L* POC ABG pCO2 POC ABG pO2 ABG pO2 ABG HCO3 26.2 H ABG O2 Saturation 94.6 L ABG Base Excess -3.6 L ABG Hemoglobin 13.1 L ABG Oxyhemoglobin ABG Sodium ABG Potassium ABG Glucose Oxyhemoglobin 93.0 L Carboxyhemoglobin Sodium Potassium 6.7 H* Chloride Carbon Dioxide BUN 54 H Creatinine 2.8 H Glucose 190 H POC Glucose 208 H Hemoglobin A1c Calcium 8.0 L Phosphorus Magnesium Ferritin AST ALT Lactate Dehydrogenase Total Creatine Kinase C-Reactive Protein Total Protein Albumin Triglycerides Arterial Blood Glucose Arterial Blood Ionized Calcium Urine Creatinine Urine Total Protein Coronavirus (PCR) 10/21/21 10/21/21 10/21/21 20:46 21:45 23:16 Hgb Hct MCV MCH MCHC RDW Lymph % (Auto) Lymph # (Auto) Seg Neutrophils % Seg Neutrophils # D-Dimer Heparin Anti-Xa Level ABG pH 7.193 L* POC ABG pCO2 POC ABG pO2 ABG pO2 59.7 L ABG HCO3 27.0 H ABG O2 Saturation 88.0 L ABG Base Excess -2.2 L ABG Hemoglobin 11.1 L ABG Oxyhemoglobin ABG Sodium ABG Potassium ABG Glucose Oxyhemoglobin 86.5 L Carboxyhemoglobin Sodium Potassium Chloride Carbon Dioxide BUN Creatinine Glucose POC Glucose 192 H 204 H Hemoglobin A1c Calcium Phosphorus Magnesium Ferritin AST ALT Lactate Dehydrogenase Total Creatine Kinase C-Reactive Protein Total Protein Albumin Triglycerides Arterial Blood Glucose Arterial Blood Ionized Calcium Urine Creatinine Urine Total Protein Coronavirus (PCR) 10/21/21 10/21/21 10/21/21 Unknown Unknown Unknown Hgb Hct MCV MCH MCHC RDW Lymph % (Auto) Lymph # (Auto) Seg Neutrophils % Seg Neutrophils # D-Dimer Heparin Anti-Xa Level 1.04 H 0.82 H ABG pH POC ABG pCO2 POC ABG pO2 ABG pO2 ABG HCO3 ABG O2 Saturation ABG Base Excess ABG Hemoglobin ABG Oxyhemoglobin ABG Sodium ABG Potassium ABG Glucose Oxyhemoglobin Carboxyhemoglobin Sodium Potassium Chloride Carbon Dioxide BUN Creatinine Glucose POC Glucose Hemoglobin A1c Calcium Phosphorus Magnesium Ferritin AST ALT Lactate Dehydrogenase Total Creatine Kinase C-Reactive Protein Total Protein Albumin Triglycerides Arterial Blood Glucose Arterial Blood Ionized Calcium Urine Creatinine 153.1 H Urine Total Protein 173 H Coronavirus (PCR) 10/22/21 10/22/21 10/22/21 02:50 02:50 02:50 Hgb 11.2 L Hct MCV MCH MCHC RDW Lymph % (Auto) Lymph # (Auto) Seg Neutrophils % Seg Neutrophils # D-Dimer Heparin Anti-Xa Level ABG pH POC ABG pCO2 POC ABG pO2 ABG pO2 ABG HCO3 ABG O2 Saturation ABG Base Excess ABG Hemoglobin ABG Oxyhemoglobin ABG Sodium ABG Potassium ABG Glucose Oxyhemoglobin Carboxyhemoglobin Sodium Potassium 6.0 H Chloride 95.4 L Carbon Dioxide BUN 51 H Creatinine 3.2 H Glucose 227 H POC Glucose Hemoglobin A1c Calcium 7.7 L Phosphorus 9.30 H Magnesium 2.50 H Ferritin AST 239 H ALT 199 H Lactate Dehydrogenase Total Creatine Kinase C-Reactive Protein Total Protein Albumin 3.2 L Triglycerides 390 H Arterial Blood Glucose Arterial Blood Ionized Calcium Urine Creatinine Urine Total Protein Coronavirus (PCR) 10/22/21 10/22/21 10/22/21 04:42 11:34 18:30 Hgb Hct MCV MCH MCHC RDW Lymph % (Auto) Lymph # (Auto) Seg Neutrophils % Seg Neutrophils # D-Dimer Heparin Anti-Xa Level ABG pH POC ABG pCO2 POC ABG pO2 ABG pO2 ABG HCO3 ABG O2 Saturation ABG Base Excess ABG Hemoglobin ABG Oxyhemoglobin ABG Sodium ABG Potassium ABG Glucose Oxyhemoglobin Carboxyhemoglobin Sodium Potassium Chloride Carbon Dioxide BUN Creatinine Glucose POC Glucose 227 H 256 H 201 H Hemoglobin A1c Calcium Phosphorus Magnesium Ferritin AST ALT Lactate Dehydrogenase Total Creatine Kinase C-Reactive Protein Total Protein Albumin Triglycerides Arterial Blood Glucose Arterial Blood Ionized Calcium Urine Creatinine Urine Total Protein Coronavirus (PCR) 10/22/21 10/23/21 10/23/21 23:29 04:45 04:45 Hgb Hct MCV MCH MCHC RDW Lymph % (Auto) Lymph # (Auto) Seg Neutrophils % Seg Neutrophils # D-Dimer 1019.09 H Heparin Anti-Xa Level ABG pH POC ABG pCO2 POC ABG pO2 ABG pO2 ABG HCO3 ABG O2 Saturation ABG Base Excess ABG Hemoglobin ABG Oxyhemoglobin ABG Sodium ABG Potassium ABG Glucose Oxyhemoglobin Carboxyhemoglobin Sodium 129 L D Potassium 5.9 H Chloride 90.7 L Carbon Dioxide BUN 65 H Creatinine 4.4 H Glucose 329 H POC Glucose 269 H Hemoglobin A1c Calcium 8.2 L Phosphorus 9.60 H Magnesium 2.50 H Ferritin AST 181 H ALT 227 H Lactate Dehydrogenase 712 H Total Creatine Kinase C-Reactive Protein 6.40 H Total Protein Albumin 3.3 L Triglycerides Arterial Blood Glucose Arterial Blood Ionized Calcium Urine Creatinine Urine Total Protein Coronavirus (PCR) 10/23/21 10/23/21 10/23/21 04:45 05:38 08:59 Hgb 11.5 L Hct MCV 81 L MCH 25 L MCHC 31 L RDW 15.3 H Lymph % (Auto) Lymph # (Auto) Seg Neutrophils % Seg Neutrophils # D-Dimer Heparin Anti-Xa Level ABG pH 7.167 L* POC ABG pCO2 POC ABG pO2 ABG pO2 66.1 L ABG HCO3 ABG O2 Saturation 89.9 L ABG Base Excess -4.5 L ABG Hemoglobin 13.3 L ABG Oxyhemoglobin ABG Sodium ABG Potassium ABG Glucose Oxyhemoglobin 88.4 L Carboxyhemoglobin Sodium Potassium Chloride Carbon Dioxide BUN Creatinine Glucose POC Glucose 313 H Hemoglobin A1c Calcium Phosphorus Magnesium Ferritin AST ALT Lactate Dehydrogenase Total Creatine Kinase C-Reactive Protein Total Protein Albumin Triglycerides Arterial Blood Glucose Arterial Blood Ionized Calcium Urine Creatinine Urine Total Protein Coronavirus (PCR) 10/23/21 10/23/21 10/24/21 12:05 22:54 05:09 Hgb Hct MCV MCH MCHC RDW Lymph % (Auto) Lymph # (Auto) Seg Neutrophils % Seg Neutrophils # D-Dimer Heparin Anti-Xa Level ABG pH 7.161 L* POC ABG pCO2 POC ABG pO2 ABG pO2 71.5 L ABG HCO3 ABG O2 Saturation 91.8 L ABG Base Excess -4.7 L ABG Hemoglobin 11.6 L ABG Oxyhemoglobin ABG Sodium ABG Potassium ABG Glucose Oxyhemoglobin 90.4 L Carboxyhemoglobin Sodium Potassium Chloride Carbon Dioxide BUN Creatinine Glucose POC Glucose 333 H 326 H Hemoglobin A1c Calcium Phosphorus Magnesium Ferritin AST ALT Lactate Dehydrogenase Total Creatine Kinase C-Reactive Protein Total Protein Albumin Triglycerides Arterial Blood Glucose Arterial Blood Ionized Calcium Urine Creatinine Urine Total Protein Coronavirus (PCR) 10/24/21 10/24/21 10/24/21 05:30 05:30 05:30 Hgb 11.7 L Hct MCV 80 L MCH 26 L MCHC RDW 15.5 H Lymph % (Auto) Lymph # (Auto) Seg Neutrophils % Seg Neutrophils # D-Dimer Heparin Anti-Xa Level ABG pH POC ABG pCO2 POC ABG pO2 ABG pO2 ABG HCO3 ABG O2 Saturation ABG Base Excess ABG Hemoglobin ABG Oxyhemoglobin ABG Sodium ABG Potassium ABG Glucose Oxyhemoglobin Carboxyhemoglobin Sodium 133 L Potassium 5.8 H Chloride 93.6 L Carbon Dioxide 19 L BUN 97 H Creatinine 5.7 H Glucose 307 H POC Glucose Hemoglobin A1c Calcium 7.4 L Phosphorus 11.10 H Magnesium 2.80 H Ferritin 1307.0 H AST 79 H ALT 171 H Lactate Dehydrogenase Total Creatine Kinase C-Reactive Protein Total Protein Albumin 3.2 L Triglycerides Arterial Blood Glucose Arterial Blood Ionized Calcium Urine Creatinine Urine Total Protein Coronavirus (PCR) 10/24/21 10/24/21 10/24/21 05:30 05:39 11:39 Hgb Hct MCV MCH MCHC RDW Lymph % (Auto) Lymph # (Auto) Seg Neutrophils % Seg Neutrophils # D-Dimer Heparin Anti-Xa Level 0.13 L ABG pH POC ABG pCO2 POC ABG pO2 ABG pO2 ABG HCO3 ABG O2 Saturation ABG Base Excess ABG Hemoglobin ABG Oxyhemoglobin ABG Sodium ABG Potassium ABG Glucose Oxyhemoglobin Carboxyhemoglobin Sodium Potassium Chloride Carbon Dioxide BUN Creatinine Glucose POC Glucose 271 H 196 H Hemoglobin A1c Calcium Phosphorus Magnesium Ferritin AST ALT Lactate Dehydrogenase Total Creatine Kinase C-Reactive Protein Total Protein Albumin Triglycerides Arterial Blood Glucose Arterial Blood Ionized Calcium Urine Creatinine Urine Total Protein Coronavirus (PCR) 10/24/21 10/24/21 10/24/21 13:29 15:45 17:14 Hgb Hct MCV MCH MCHC RDW Lymph % (Auto) Lymph # (Auto) Seg Neutrophils % Seg Neutrophils # D-Dimer Heparin Anti-Xa Level 0.21 L ABG pH POC ABG pCO2 POC ABG pO2 ABG pO2 ABG HCO3 ABG O2 Saturation ABG Base Excess ABG Hemoglobin ABG Oxyhemoglobin ABG Sodium ABG Potassium ABG Glucose Oxyhemoglobin Carboxyhemoglobin Sodium 135 L Potassium 5.1 H Chloride 94.1 L Carbon Dioxide BUN 67 H Creatinine 4.1 H Glucose 227 H POC Glucose 202 H Hemoglobin A1c Calcium 7.8 L Phosphorus Magnesium Ferritin AST ALT Lactate Dehydrogenase Total Creatine Kinase C-Reactive Protein Total Protein Albumin Triglycerides Arterial Blood Glucose Arterial Blood Ionized Calcium Urine Creatinine Urine Total Protein Coronavirus (PCR) 10/24/21 10/25/21 10/25/21 22:39 04:42 06:00 Hgb Hct MCV MCH MCHC RDW Lymph % (Auto) Lymph # (Auto) Seg Neutrophils % Seg Neutrophils # D-Dimer Heparin Anti-Xa Level ABG pH POC ABG pCO2 POC ABG pO2 ABG pO2 ABG HCO3 ABG O2 Saturation ABG Base Excess ABG Hemoglobin ABG Oxyhemoglobin ABG Sodium ABG Potassium ABG Glucose Oxyhemoglobin Carboxyhemoglobin Sodium Potassium Chloride Carbon Dioxide BUN Creatinine Glucose POC Glucose 215 H 223 H Hemoglobin A1c Calcium Phosphorus Magnesium Ferritin AST ALT Lactate Dehydrogenase Total Creatine Kinase C-Reactive Protein Total Protein Albumin Triglycerides 492 H Arterial Blood Glucose Arterial Blood Ionized Calcium Urine Creatinine Urine Total Protein Coronavirus (PCR) 10/25/21 10/25/21 10/25/21 06:00 06:00 11:50 Hgb Hct MCV 79 L MCH 25 L MCHC RDW 15.4 H Lymph % (Auto) Lymph # (Auto) Seg Neutrophils % Seg Neutrophils # D-Dimer Heparin Anti-Xa Level ABG pH POC ABG pCO2 POC ABG pO2 ABG pO2 ABG HCO3 ABG O2 Saturation ABG Base Excess ABG Hemoglobin ABG Oxyhemoglobin ABG Sodium ABG Potassium ABG Glucose Oxyhemoglobin Carboxyhemoglobin Sodium 136 L Potassium 5.2 H Chloride 95.9 L Carbon Dioxide BUN 85 H Creatinine 3.6 H Glucose 246 H POC Glucose 188 H Hemoglobin A1c Calcium 7.6 L Phosphorus Magnesium Ferritin AST ALT Lactate Dehydrogenase Total Creatine Kinase C-Reactive Protein Total Protein Albumin Triglycerides Arterial Blood Glucose Arterial Blood Ionized Calcium Urine Creatinine Urine Total Protein Coronavirus (PCR) 10/25/21 10/25/21 10/26/21 14:17 17:10 00:26 Hgb Hct MCV MCH MCHC RDW Lymph % (Auto) Lymph # (Auto) Seg Neutrophils % Seg Neutrophils # D-Dimer Heparin Anti-Xa Level ABG pH 7.275 L POC ABG pCO2 POC ABG pO2 ABG pO2 78.7 L ABG HCO3 ABG O2 Saturation 94.7 L ABG Base Excess -2.3 L ABG Hemoglobin 12.7 L ABG Oxyhemoglobin ABG Sodium ABG Potassium ABG Glucose Oxyhemoglobin 93.0 L Carboxyhemoglobin Sodium Potassium Chloride Carbon Dioxide BUN Creatinine Glucose POC Glucose 190 H 219 H Hemoglobin A1c Calcium Phosphorus Magnesium Ferritin AST ALT Lactate Dehydrogenase Total Creatine Kinase C-Reactive Protein Total Protein Albumin Triglycerides Arterial Blood Glucose Arterial Blood Ionized Calcium Urine Creatinine Urine Total Protein Coronavirus (PCR) 10/26/21 10/26/21 10/26/21 04:02 04:02 04:02 Hgb 11.5 L Hct MCV 80 L MCH 26 L MCHC RDW 15.3 H Lymph % (Auto) Lymph # (Auto) Seg Neutrophils % Seg Neutrophils # D-Dimer Heparin Anti-Xa Level ABG pH POC ABG pCO2 POC ABG pO2 ABG pO2 ABG HCO3 ABG O2 Saturation ABG Base Excess ABG Hemoglobin ABG Oxyhemoglobin ABG Sodium ABG Potassium ABG Glucose Oxyhemoglobin Carboxyhemoglobin Sodium Potassium Chloride Carbon Dioxide BUN 96 H Creatinine 2.6 H Glucose 246 H POC Glucose Hemoglobin A1c Calcium 7.5 L Phosphorus Magnesium Ferritin AST ALT Lactate Dehydrogenase Total Creatine Kinase C-Reactive Protein Total Protein Albumin Triglycerides 521 H Arterial Blood Glucose Arterial Blood Ionized Calcium Urine Creatinine Urine Total Protein Coronavirus (PCR) 10/26/21 10/26/21 10/26/21 04:20 11:56 13:03 Hgb Hct MCV MCH MCHC RDW Lymph % (Auto) Lymph # (Auto) Seg Neutrophils % Seg Neutrophils # D-Dimer Heparin Anti-Xa Level ABG pH 7.331 L POC ABG pCO2 POC ABG pO2 ABG pO2 58.3 L ABG HCO3 26.9 H ABG O2 Saturation 87.4 L ABG Base Excess ABG Hemoglobin 9.4 L ABG Oxyhemoglobin ABG Sodium ABG Potassium ABG Glucose Oxyhemoglobin 85.6 L Carboxyhemoglobin Sodium Potassium Chloride Carbon Dioxide BUN Creatinine Glucose POC Glucose 178 H 173 H Hemoglobin A1c Calcium Phosphorus Magnesium Ferritin AST ALT Lactate Dehydrogenase Total Creatine Kinase C-Reactive Protein Total Protein Albumin Triglycerides Arterial Blood Glucose Arterial Blood Ionized Calcium Urine Creatinine Urine Total Protein Coronavirus (PCR) 10/26/21 10/26/21 10/27/21 16:57 23:24 04:20 Hgb Hct MCV MCH MCHC RDW Lymph % (Auto) Lymph # (Auto) Seg Neutrophils % Seg Neutrophils # D-Dimer Heparin Anti-Xa Level ABG pH POC ABG pCO2 POC ABG pO2 ABG pO2 ABG HCO3 ABG O2 Saturation ABG Base Excess ABG Hemoglobin ABG Oxyhemoglobin ABG Sodium ABG Potassium ABG Glucose Oxyhemoglobin Carboxyhemoglobin Sodium Potassium Chloride Carbon Dioxide BUN Creatinine Glucose POC Glucose 154 H 199 H Hemoglobin A1c Calcium Phosphorus Magnesium Ferritin AST ALT Lactate Dehydrogenase Total Creatine Kinase C-Reactive Protein Total Protein Albumin Triglycerides 392 H Arterial Blood Glucose Arterial Blood Ionized Calcium Urine Creatinine Urine Total Protein Coronavirus (PCR) 10/27/21 10/27/21 10/27/21 04:20 04:20 04:35 Hgb 11.2 L Hct 35.2 L MCV 79 L MCH 25 L MCHC RDW 16.0 H Lymph % (Auto) Lymph # (Auto) Seg Neutrophils % Seg Neutrophils # D-Dimer Heparin Anti-Xa Level ABG pH POC ABG pCO2 POC ABG pO2 ABG pO2 61.3 L ABG HCO3 26.6 H ABG O2 Saturation 91.3 L ABG Base Excess ABG Hemoglobin 11.3 L ABG Oxyhemoglobin ABG Sodium ABG Potassium ABG Glucose Oxyhemoglobin 89.4 L Carboxyhemoglobin Sodium 146 H D Potassium Chloride 107.2 H Carbon Dioxide BUN 102 H Creatinine 1.8 H Glucose 207 H POC Glucose Hemoglobin A1c Calcium 7.9 L Phosphorus Magnesium Ferritin AST ALT Lactate Dehydrogenase Total Creatine Kinase C-Reactive Protein Total Protein Albumin Triglycerides Arterial Blood Glucose Arterial Blood Ionized Calcium Urine Creatinine Urine Total Protein Coronavirus (PCR) 10/27/21 10/27/21 10/27/21 05:17 11:26 16:19 Hgb Hct MCV MCH MCHC RDW Lymph % (Auto) Lymph # (Auto) Seg Neutrophils % Seg Neutrophils # D-Dimer Heparin Anti-Xa Level ABG pH POC ABG pCO2 POC ABG pO2 ABG pO2 ABG HCO3 ABG O2 Saturation ABG Base Excess ABG Hemoglobin ABG Oxyhemoglobin ABG Sodium ABG Potassium ABG Glucose Oxyhemoglobin Carboxyhemoglobin Sodium Potassium Chloride Carbon Dioxide BUN Creatinine Glucose POC Glucose 180 H 210 H 157 H Hemoglobin A1c Calcium Phosphorus Magnesium Ferritin AST ALT Lactate Dehydrogenase Total Creatine Kinase C-Reactive Protein Total Protein Albumin Triglycerides Arterial Blood Glucose Arterial Blood Ionized Calcium Urine Creatinine Urine Total Protein Coronavirus (PCR) 10/27/21 10/28/21 10/28/21 23:28 05:10 06:00 Hgb Hct MCV MCH MCHC RDW Lymph % (Auto) Lymph # (Auto) Seg Neutrophils % Seg Neutrophils # D-Dimer Heparin Anti-Xa Level ABG pH POC ABG pCO2 POC ABG pO2 ABG pO2 56.1 L ABG HCO3 28.1 H ABG O2 Saturation 88.6 L ABG Base Excess ABG Hemoglobin 12.0 L ABG Oxyhemoglobin ABG Sodium ABG Potassium ABG Glucose Oxyhemoglobin 86.7 L Carboxyhemoglobin Sodium Potassium Chloride Carbon Dioxide BUN Creatinine Glucose POC Glucose 165 H 148 H Hemoglobin A1c Calcium Phosphorus Magnesium Ferritin AST ALT Lactate Dehydrogenase Total Creatine Kinase C-Reactive Protein Total Protein Albumin Triglycerides Arterial Blood Glucose Arterial Blood Ionized Calcium Urine Creatinine Urine Total Protein Coronavirus (PCR) 10/28/21 10/28/21 10/28/21 07:09 07:09 11:18 Hgb 11.5 L Hct MCV 80 L MCH 25 L MCHC 31 L RDW 16.3 H Lymph % (Auto) Lymph # (Auto) Seg Neutrophils % Seg Neutrophils # D-Dimer Heparin Anti-Xa Level ABG pH POC ABG pCO2 POC ABG pO2 ABG pO2 ABG HCO3 ABG O2 Saturation ABG Base Excess ABG Hemoglobin ABG Oxyhemoglobin ABG Sodium ABG Potassium ABG Glucose Oxyhemoglobin Carboxyhemoglobin Sodium 156 H D Potassium 5.5 H Chloride 117.3 H Carbon Dioxide BUN 66 H Creatinine Glucose 145 H POC Glucose 210 H Hemoglobin A1c Calcium Phosphorus Magnesium Ferritin AST ALT Lactate Dehydrogenase Total Creatine Kinase C-Reactive Protein Total Protein Albumin Triglycerides Arterial Blood Glucose Arterial Blood Ionized Calcium Urine Creatinine Urine Total Protein Coronavirus (PCR)
--- NOTE | 2021-10-28 14:27 | Progress Note ---
Assessment and Plan Assessment: Nonliguric acute kidney injury secondary to ATN COVID 19 PNA Acute hypoxic/hypercapnic respiratory failure secondary to COVID 19 PNA vs PE Acute pulmonary embolus Respiratory acidosis w/ inadequate metabolic compensation Hyperkalemia Hypernatremia Plan: Patient with polyuria, increasing Na. Continue free H2O 250ml [id number] with TF Will also start D5W 100ml/hour Vent management per pulmonary/critical care Anticoagulation per primary team Management of COVID 19 infection per ID Dose medications for renal function Avoid potential nephrotoxins No further hemodialysis needs at this time Subjective Date of service: 10/28/21 Principal diagnosis: phan Objective - Vital Signs Vital signs: Vital Signs - 12hr 10/28/21 10/28/21 10/28/21 02:30 02:45 03:00 Temperature Pulse Rate 74 75 71 Pulse Rate [ From Monitor] Respiratory 24 Rate Blood Pressure 166/83 161/81 162/82 O2 Sat by Pulse 91 92 94 Oximetry 10/28/21 10/28/21 10/28/21 03:15 03:20 03:30 Temperature 100.9 F H Pulse Rate 73 73 Pulse Rate [ From Monitor] Respiratory 29 H 24 Rate Blood Pressure 152/76 164/85 O2 Sat by Pulse 93 93 Oximetry 10/28/21 10/28/21 10/28/21 03:45 04:00 04:15 Temperature Pulse Rate 74 76 77 Pulse Rate [ 76 From Monitor] Respiratory 25 H 25 H 25 H Rate Blood Pressure 165/87 162/82 159/82 O2 Sat by Pulse 94 94 95 Oximetry 10/28/21 10/28/21 10/28/21 04:22 04:30 04:45 Temperature Pulse Rate 75 75 75 Pulse Rate [ From Monitor] Respiratory 25 H 22 Rate Blood Pressure 159/82 157/79 165/84 O2 Sat by Pulse 95 96 95 Oximetry 10/28/21 10/28/21 10/28/21 05:00 05:16 05:30 Temperature Pulse Rate 74 73 71 Pulse Rate [ From Monitor] Respiratory 23 23 26 H Rate Blood Pressure 162/81 156/81 150/81 O2 Sat by Pulse 96 94 92 Oximetry 10/28/21 10/28/21 10/28/21 05:45 06:00 06:15 Temperature Pulse Rate 71 73 73 Pulse Rate [ From Monitor] Respiratory 24 Rate Blood Pressure 151/84 157/84 157/77 O2 Sat by Pulse 94 94 94 Oximetry 10/28/21 10/28/21 10/28/21 06:30 06:46 07:00 Temperature Pulse Rate 74 76 74 Pulse Rate [ From Monitor] Respiratory 23 22 20 Rate Blood Pressure 157/77 152/73 152/73 O2 Sat by Pulse 95 95 95 Oximetry 10/28/21 10/28/21 10/28/21 07:13 07:15 07:30 Temperature 101.2 F H Pulse Rate 74 70 Pulse Rate [ From Monitor] Respiratory 28 H Rate Blood Pressure 148/75 148/75 O2 Sat by Pulse 95 92 Oximetry 10/28/21 10/28/21 10/28/21 07:45 08:00 08:01 Temperature Pulse Rate 67 71 70 Pulse Rate [ 68 From Monitor] Respiratory 22 Rate Blood Pressure 144/74 144/74 146/86 O2 Sat by Pulse 91 94 94 Oximetry 10/28/21 10/28/21 10/28/21 08:16 08:30 08:35 Temperature Pulse Rate 69 67 Pulse Rate [ From Monitor] Respiratory 24 Rate Blood Pressure 146/86 161/89 O2 Sat by Pulse 95 95 Oximetry 10/28/21 10/28/21 10/28/21 08:46 09:00 09:16 Temperature Pulse Rate 67 67 64 Pulse Rate [ From Monitor] Respiratory 22 23 Rate Blood Pressure 154/86 154/86 173/90 O2 Sat by Pulse 95 96 95 Oximetry 10/28/21 10/28/21 10/28/21 09:30 09:46 10:00 Temperature Pulse Rate 65 65 68 Pulse Rate [ From Monitor] Respiratory 21 22 Rate Blood Pressure 173/90 171/85 171/85 O2 Sat by Pulse 95 97 98 Oximetry 10/28/21 10/28/21 10/28/21 10:16 10:30 10:45 Temperature Pulse Rate 69 65 69 Pulse Rate [ From Monitor] Respiratory 23 20 23 Rate Blood Pressure 174/89 177/90 171/85 O2 Sat by Pulse 98 98 98 Oximetry 10/28/21 10/28/21 10/28/21 11:00 11:05 11:16 Temperature Pulse Rate 67 68 Pulse Rate [ From Monitor] Respiratory 23 22 Rate Blood Pressure 171/92 170/88 O2 Sat by Pulse 98 98 Oximetry 10/28/21 10/28/21 10/28/21 11:30 11:45 11:50 Temperature 101.4 F H Pulse Rate 69 70 Pulse Rate [ From Monitor] Respiratory 22 21 Rate Blood Pressure 170/88 131/80 O2 Sat by Pulse 97 97 Oximetry 10/28/21 10/28/21 10/28/21 12:00 12:13 12:16 Temperature Pulse Rate 69 73 74 Pulse Rate [ From Monitor] Respiratory 20 23 Rate Blood Pressure 131/80 152/83 152/83 O2 Sat by Pulse 97 96 95 Oximetry 10/28/21 12:57 Temperature Pulse Rate Pulse Rate [ From Monitor] Respiratory 23 Rate Blood Pressure O2 Sat by Pulse Oximetry - Lab 10/28/21 07:09 10/28/21 07:09 Most recent lab results ABG pH 7.404 pH Units (7.350-7.450) 10/28/21 06:00 ABG pCO2 45.9 mm Hg 10/28/21 06:00 ABG pO2 56.1 mm Hg (80.0-90.0) L 10/28/21 06:00 ABG HCO3 28.1 mmol/L (20.0-26.0) H 10/28/21 06:00 ABG O2 Saturation 88.6 % (95.0-99.0) L 10/28/21 06:00 Calcium 8.8 mg/dL (8.4-10.2) 10/28/21 07:09 Phosphorus 11.10 mg/dL (2.5-4.5) H 10/24/21 05:30 Magnesium 2.80 mg/dL (1.7-2.3) H 10/24/21 05:30 Urine Creatinine 153.1 mg/dL (0.1-20.0) H 10/21/21 Unknown Urine Sodium 31 mmol/L 10/21/21 Unknown Urine Total Protein 173 mg/dL (5-11.8) H 10/21/21 Unknown Medications & Allergies - Medications Allergies/Adverse Reactions: Allergies No Known Allergies Allergy (Unverified 10/18/21 16:14) Home Medications: Home Medications Medication Instructions Recorded Confirmed Last Taken Type metFORMIN [Glucophage] 500 mg PO BID 10/20/21 10/20/21 Unknown History Active Medications: Generic Name Dose Route Start Last Admin Trade Name Freq PRN Reason Stop Dose Admin Acetaminophen 650 mg 10/20/21 13:30 10/28/21 12:00 Acetaminophen 325 Mg/10.15 Ml Oral Liqd Unit Dose FEEDTUBE 650 mg Q6H PRN Administration Pain MILD(1-3)/Fever >100.5/HUSSEIN Al Hydrox/Mg Hydrox/Simethicone 30 ml 10/20/21 13:30 Alum-Mag Hydroxide-Simethicone [id number]/5ml Oral Liqd 30 Ml PO Q4H PRN Indigestion Lipase/Protease/Amylase 1 each 10/20/21 15:15 Lipase 10,500/Protease 25,000/Amylase 43,750 (Units) Dr Johnson FEEDTUBE PRN PRN For Clogged Feeding Tube Bisacodyl 10 mg 10/20/21 13:30 Bisacodyl 10 Mg Rect Supp UT QDAY PRN constipation unrelieved by MOM Calcium Acetate 1,334 mg 10/23/21 08:00 10/28/21 13:16 Calcium Acetate 667 Mg Cap PO 1,334 mg TID ALBIN Administration Dextrose 50 ml 10/20/21 13:30 Dextrose 50% In Water (25gm) 50 Ml Syringe IV Q30MIN PRN Hypoglycemia Protocol Docusate Sodium 100 mg 10/26/21 11:00 10/28/21 09:03 Docusate Sodium 100 Mg/10 Ml Oral Liqd PO 100 mg BID ALBIN Administration Famotidine 20 mg 10/28/21 10:00 10/28/21 09:02 Famotidine 20 Mg/2 Ml Inj IV 20 mg BID ALBIN Administration Fentanyl 50 mcg 10/20/21 13:25 10/25/21 10:19 Fentanyl 100 Mcg/2 Ml Inj IV 50 mcg Q10MIN PRN Administration ANALGESIA Heparin Sodium (Porcine) 5,000 unit 10/20/21 10:41 10/21/21 17:19 Heparin 10,000 Units/10 Ml Vial IV 5,000 unit Q6H PRN Administration Anti-Xa Assay < 0.1 units/ml Hydralazine HCl 10 mg 10/28/21 11:34 Hydralazine 20 Mg/1 Ml Inj IV Q4HR PRN Hypertension Hydrophilic Ointment 1 applic 10/20/21 13:25 Lip Therapy Vaseline TP Q2HR PRN Dry Lips Heparin Sodium/Sodium Chloride 25,000 unit in 500 mls @ 30 mls/hr 10/20/21 20:00 10/28/21 09:01 Heparin/ 0.45% Nacl-25,000 Unit/500 Ml IV 1,200 units/hr TITR ALBIN 24 mls/hr Titration Protocol 1,500 UNITS/HR Midazolam HCl 100 mg/ Sodium 100 mls @ 2 mls/hr 10/20/21 14:00 10/28/21 05:23 Chloride IV 8 mg/hr TITR ALBIN 8 mls/hr Administration Protocol 2 MG/HR Fentanyl Citrate 2,000 mcg in 100 mls @ 7.938 mls/hr 10/20/21 14:00 10/28/21 12:58 Fentanyl Drip Premix IV 4 mcg/kg/hr TITR ALBIN 31.751 mls/hr Administration Protocol 1 MCG/KG/HR Propofol 1,000 mg in 100 mls @ 4.763 mls/hr 10/20/21 14:00 10/28/21 11:57 Diprivan 10 Mg/Ml IV 50 mcg/kg/min TITR ALBIN 47.627 mls/hr Administration Protocol 5 MCG/KG/MIN Sodium Chloride 1,000 mls @ 1 mls/hr 10/20/21 14:30 Nacl 0.9% 500 Ml IV DIRECT PRN ARTERIAL LINE FLUSH Dexmedetomidine HCl 400 mcg/ 104 mls @ 8.258 mls/hr 10/22/21 16:00 10/28/21 13:17 Sodium Chloride IV 1 mcg/kg/hr TITRATE ALBIN 41.288 mls/hr Administration Protocol 0.2 MCG/KG/HR NORepinephrine/NS 8 MG-250 ML 8 mg in 250 mls @ 3.75 mls/hr 10/22/21 18:00 10/23/21 08:20 Norepinephrine/Ns 8 Mg-250 Ml (Double Conc) IV 0 mcg/min TITRATE ALBIN 0 mls/hr Titration Protocol 2 MCG/MIN Cisatracurium Besylate 10 mg/ 100 mls @ 23.82 mls/hr 10/27/21 12:00 10/28/21 12:58 Sodium Chloride IV 10/29/21 12:00 0.25 mcg/kg/min TITR ALBIN 23.82 mls/hr Administration Protocol 0.25 MCG/KG/MIN Dextrose 1,000 mls @ 100 mls/hr 10/28/21 15:00 D5w IV DIRECT ALBIN Insulin Glargine 35 units 12/21/21 22:00 10/27/21 21:11 Insulin Glargine 100 Units/Ml SUB-Q 35 units QHS ALBIN Administration Insulin Human Lispro 0 unit 10/24/21 18:00 10/28/21 12:02 Insulin Lispro 100 Unit/Ml SUB-Q 4 unit Q6HR ALBIN Administration Protocol Methylprednisolone Sodium Succinate 60 mg 10/22/21 14:00 10/28/21 13:15 Methylprednisolone Sod Succinate 125 Mg/2 Ml Inj IV 60 mg Q8HR ALBIN Administration Metoclopramide HCl 10 mg 10/28/21 12:00 10/28/21 12:01 Metoclopramide 10 Mg/2 Ml Inj IV 10 mg Q6HR ALBIN Administration Multi-Ingred Cream/Lotion/Oil/Oint 1 applic 10/20/21 13:25 10/28/21 12:14 Mineral Oil/Petrolatum, White Ophth Oint 3.5 Gm OU 1 applic Q4HR PRN Administration Dry Eye(s) Ondansetron HCl 4 mg 10/19/21 04:21 Ondansetron 4 Mg/2 Ml Inj IV Q8H PRN Nausea And Vomiting Promethazine HCl 25 mg 10/19/21 04:38 10/20/21 05:06 Promethazine 25 Mg Tab PO 25 mg Q6H PRN Administration Nausea And Vomiting Quetiapine Fumarate 100 mg 10/26/21 10:00 10/28/21 09:02 Quetiapine 100 Mg Tab PO 100 mg BID ALBIN Administration Senna 8.8 mg 10/20/21 22:00 10/28/21 09:02 Sennosides Oral Liqd 8.8 Mg/5 Ml Oral Liqd FEEDTUBE 8.8 mg BID ALBIN Administration Simple Syrup 15 ml 10/20/21 15:15 Simple Syrup 15 Ml FEEDTUBE PRN PRN Hypoglycemia Simple Syrup 30 ml 10/20/21 15:15 Simple Syrup 15 Ml FEEDTUBE PRN PRN Hypoglycemia Sodium Bicarbonate 325 mg 10/20/21 15:15 Sodium Bicarbonate 325 Mg Tab FEEDTUBE PRN PRN For Clogged Feeding Tube Sodium Chloride 10 ml 10/19/21 10:00 10/28/21 09:03 Sodium Chloride 0.9% 10 Ml Flush Syringe IV 10 ml BID ALBIN Administration Sodium Chloride 10 ml 10/19/21 04:26 Sodium Chloride 0.9% 10 Ml Flush Syringe IV PRN PRN flush prior to & after IV med
[2021-10-28] MEDS ORDERED: DEXTROSE 5% IN WATER 1,000 ML IV SCH (15:00)
[2021-10-28] MEDS ORDERED: ROCURONIUM 50 MG/5 ML INJ IV ONE ×3 (17:33→18:09)
[2021-10-28] MEDS ORDERED: LORazepam 2 MG/ML VIAL IV ONE (18:00)
--- NOTE | 2021-10-28 18:07 | XRay Report ---
XR chest 1V ap INDICATION / CLINICAL INFORMATION: Hypoxia. COMPARISON: Radiograph from yesterday. FINDINGS: Findings in the chest are accentuated by body habitus. SUPPORT DEVICES: Endotracheal tube an enteric catheter appear stable. HEART /PULMONARY VASCULATURE: Unchanged. LUNGS / PLEURA: Diffuse pulmonary opacities are unchanged. No sizable pleural effusion. No pneumothor ax. IMPRESSION: 1. No significant interval change. Signer Name: Smooth Palencia MD Signed: 10/28/2021 6:03 PM Workstation Name: [id number]
[2021-10-28 18:25] LABS: ABG Base Excess -1.2 mmol/L (-2.0-3.0); ABG HCO3 26.5 mmol/L (20.0-26.0); ABG Methemoglobin 0.7 % (0.0-1.5); ABG Oxygen Saturation 82.7 % (95.0-99.0); ABG PCO2 57.6 mm Hg; ABG PH 7.281 pH Units (7.350-7.450); ABG PO2 55.5 mm Hg (80.0-90.0)
[2021-10-28] MEDS: NORepinephrine/NS 8 MG-250 ML 8 MG/250 ML INFUS..BTL IV SCH (18:55)
[2021-10-28] MEDS ORDERED: PHENYLEPHRINE 100 MG in SODIUM CHLORIDE 0.9% 90 ML IV SCH (20:30)
[2021-10-28] MEDS ORDERED: VASOPRESSIN 20 UNIT in SODIUM CHLORIDE 0.9% 100 ML IV SCH (21:00)
[2021-10-28 21:53] VITALS: BP 59/24
[2021-10-28] MEDS ORDERED: EPINEPHrine 1 MG/1 ML 8 MG in SODIUM CHLORIDE 0.9% 250ML 242 ML IV SCH (22:00)
--- NOTE | 2021-10-28 23:50 | Event Note ---
Date: 10/28/21 KENNY SHAFFER was called on 26-year-old -Indian male who has been on admission for multiple medical problems including acute hypoxic respiratory failure, COVID-19 pneumonia, pulmonary embolism. Resuscitative measures were commenced immediately according to ACLS protocol. Patient had multiple rounds of epinephrine, calcium chloride sodium bicarb. All resuscitative measures proved futile. Upon exam: Pupils were fixed and dilated. Patient morbidly obese Chest: No breath sounds Cardiovascular: No heart sounds and no peripheral pulses Abdomen: Obese, soft Extremities: Cold and clammy Central nervous system: No reflexes Patient pronounced at 20 1:47 PM on October 28, 2021. Family members including and sister were by the bedside.
--- NOTE | 2021-10-31 11:32 | Death Summary ---
Summary - Providers Date of service: 10/29/21 Consults: 10/19/21 06:45 Consult to Physician [CONS] Routine Comment: Consulting Provider: ADEBAYO SALAZAR Physician Instructions: Reason For Exam: Covid 10/19/21 13:47 Consult to Physician [CONS] Routine Comment: Consulting Provider: ZIGGY GALLAGHER Physician Instructions: Reason For Exam: covid pna 10/20/21 11:36 Consult to PICC Line RN [CONS] Urgent Reason For Exam: IV access Type Line:: Midline 10/20/21 13:25 Consult to Dietitian/Nutrition [CONS] Routine Physician Instructions: Reason For Exam: Reason for Consult: Write/Manage Tube Feeding 10/21/21 07:34 Consult to Physician [CONS] Routine Comment: called office/ fauzia Consulting Provider: GERALDINE REAL Physician Instructions: Reason For Exam: phan Attending: MOHSEN HANDY - summary Date of admission: 10/18/21 19:52 Date of : 10/28/21 Disposition: This is a 26-year-old male with HTN, DM, asthma and gout admitted for acute hypoxic respiratory failure secondary to COVID-19 pneumonia and pulmonary embolism was started on IV antiobitics, steroids, antiviral, as well as high intensity heparin gtt. Patient was initially on the floor, noncomplaint with bipap and eventually decompensated and was transferred to ICU where he was intubated and sedated requiring ventilatory support. Patient hospitalization was complicated with hyperkalemia and acute kidney injury with azotemia required emergent dialysis. Patient also developped significant ARDS was heavily sedated with multiple gtts and placed on paralytic, nimbex gtt to help with ventilator synchrony. On 10/28 around 1800 patient decompensated, dropped his SPO2 in the low 60 requiring manual bagging and additional IV pushes paralytics were administered. Patient family were contacted by the nursing staff around this time and they were advised to come and visit the patient at this time. Around 2100, a code terri was called patient was asystole on the monitor. CPR and resuscitative measures were immediately initiated according to ACLS protocol. Patient had multiple rounds of epinephrine, calcium chloride, sodium bicarb, and chest compressions, patient remained asystole on the monitor. All reversible causes for arrest were considered however resuscitation was futile and unsuccessful. Examination revealed fixed and dilated pupils, no breath sounds, no heart sounds and no peripheral pulses, extremities were Cold and clammy, and no central nervous system reflexes. Patient was pronounced at 21:47 on October 28, 2021. Family members including and sister were by the bedside.
== END 2021-10-28 21:47 | DRG 207 ==
LOC: ED 14:14 → IMCU 19:52 → 3A 10-19 03:17 → CC1 10-20 09:56
PROVIDERS: ADMIT Internal Medicine; ATTEND Internal Medicine
PROC: 4A033R1 Measurement of Arterial Saturation, Peripheral, Percutaneous Approach (ICD-10-PCS; 2021-10-19)
PROC: XW033E5 Introduction of Remdesivir Anti-infective into Peripheral Vein, Percutaneous Approach, New Technology Group 5 (ICD-10-PCS; 2021-10-19)
PROC: 5A1955Z Respiratory Ventilation, Greater than 96 Consecutive Hours (ICD-10-PCS; principal; 2021-10-20)
PROC: 0BH17EZ Insertion of Endotracheal Airway into Trachea, Via Natural or Artificial Opening (ICD-10-PCS; 2021-10-20)
PROC: 05HM33Z Insertion of Infusion Device into Right Internal Jugular Vein, Percutaneous Approach (ICD-10-PCS; 2021-10-20)
PROC: B543ZZA Ultrasonography of Right Jugular Veins, Guidance (ICD-10-PCS; 2021-10-20)
PROC: 5A09357 Assistance with Respiratory Ventilation, Less than 24 Consecutive Hours, Continuous Positive Airway Pressure (ICD-10-PCS; 2021-10-20)
PROC: XW033H5 Introduction of Tocilizumab into Peripheral Vein, Percutaneous Approach, New Technology Group 5 (ICD-10-PCS; 2021-10-20)
PROC: 06HM33Z Insertion of Infusion Device into Right Femoral Vein, Percutaneous Approach (ICD-10-PCS; 2021-10-21)
PROC: B54BZZA Ultrasonography of Right Lower Extremity Veins, Guidance (ICD-10-PCS; 2021-10-21)
PROC: 03HB33Z Insertion of Infusion Device into Right Radial Artery, Percutaneous Approach (ICD-10-PCS; 2021-10-21)
PROC: B34HZZZ Ultrasonography of Right Upper Extremity Arteries (ICD-10-PCS; 2021-10-21)
PROC: 5A1D70Z Performance of Urinary Filtration, Intermittent, Less than 6 Hours Per Day (ICD-10-PCS; 2021-10-21)
PROC: 5A1D70Z Performance of Urinary Filtration, Intermittent, Less than 6 Hours Per Day (ICD-10-PCS; 2021-10-22)
PROC: 5A1D70Z Performance of Urinary Filtration, Intermittent, Less than 6 Hours Per Day (ICD-10-PCS; 2021-10-24)
PROC: 5A12012 Performance of Cardiac Output, Single, Manual (ICD-10-PCS; 2021-10-27)
DX: U07.1 COVID-19 (principal); J12.82 Pneumonia due to coronavirus disease 2019; I26.99 Other pulmonary embolism without acute cor pulmonale; J96.01 Acute respiratory failure with hypoxia; N17.0 Acute kidney failure with tubular necrosis; J96.02 Acute respiratory failure with hypercapnia; Z68.42 Body mass index [BMI] 45.0-49.9, adult; E87.1 Hypo-osmolality and hyponatremia; M62.82 Rhabdomyolysis; E44.1 Mild protein-calorie malnutrition; E66.01 Morbid (severe) obesity due to excess calories; I10 Essential (primary) hypertension; E11.9 Type 2 diabetes mellitus without complications; F41.9 Anxiety disorder, unspecified; E87.5 Hyperkalemia
CPT/HCPCS: 36415; 36600; 71045; 71275; 74018; 76770; 80048; 80053; 80074; 81001; 82140; 82550; 82553; 82570; 82728; 82803; 82805; 82962; 83036; 83615; 83690; 83735; 84100; 84145; 84156; 84300; 84478; 84484; 85014; 85018; 85025; 85027; 85049; 85379; 85520; 85610; 85730; 86140; 87040; 87070; 87205; 92950; 93005; 93306; 94002; 94003; 94660; 94760; 99291; G0378; J2354; J3490; J7120; J7121; Q0162; Q9967; J0171; J0330; J0360; J0456; J0461; J0610; J0696; J1100; J1630; J1644; J1650; J1815; J1940; J2060; J2250; J2270; J2370; J2704; J2765; J2930; J3010; J3262; J7030; J7050; J7070; Q0169; U0003